=== PATIENT | female | born 1995 | race Caucasian/White ===

== ENCOUNTER 2020-04-04 19:02 | Emergency (ER) | payer SELFPAY ==
--- NOTE | 2020-04-04 21:11 | RAD REPORT ---
EXAM DESCRIPTION: USExtremity Venous Uni Ltd04/04/2020 9:02 pm CLINICAL HISTORY: Right leg pain and swelling. COMPARISON: None. FINDINGS: Right common femoral, superficial femoral, popliteal and right posterior tibial veins are compressible and demonstrate augmentation. Doppler demonstrates good flow. 2 centimeter hypoechoic lymph node right inguinal region with increased vascularity. A more normal ap pearing 2.1 centimeter additional right inguinal lymph node is present IMPRESSION: No evidence of deep venous thrombosis involving the right lower extremity. 2 centimeter hypoechoic right inguinal lymph node likely is inflamed
--- NOTE | 2020-04-04 21:26 | ER ---
Nurse's Notes [facility] Name: Taniya Hudson Age: 24 yrs Sex: Female : 1995 Arrival Date: 04/04/2020 Time: 19:05 Bed 16 Private MD: Diagnosis: Local infection of the skin and subcutaneous tissue, unspecified;Acute lymphadenitis of lower limb Presentation: 04/04 19:20 Chief complaint: Patient states: Seen at [facility] Thursday. Diagnosed with inflamed ll1 lymph node. Covid was negative. Levaquin started Thursday morning. Levaquin made her very dizzy and nausea. Stopped taking it today. Coronavirus screen: Client denies travel out of the [place] in the last 14 days. fatigue, headache, nausea, The client reports previous COVID testing was negative. Ebola Screen: Patient denies travel to an Ebola-affected area in the 21 days before illness onset. Initial Sepsis Screen: Does the patient meet any 2 criteria? No. Patient's initial sepsis screen is negative. Does the patient have a suspected source of infection? Yes: Skin breakdown/wound. Risk Assessment: Do you want to hurt yourself or someone else? Patient reports no desire to harm self or others. Onset of symptoms was March 31, 2020. 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 - Social history:: Smoking status: Patient denies any tobacco usage or history of. Screenin:19 Abuse screen: Denies threats or abuse. Nutritional screening: No deficits noted. jb4 Tuberculosis screening: No symptoms or risk factors identified. Fall Risk None identified. Assessment: 20:19 General: Appears in no apparent distress. comfortable, Behavior is calm, cooperative, jb4 appropriate for age. Pain: Complains of pain in medial aspect of right thigh Pain does not radiate. Pain currently is 5 out of 10 on a pain scale. Quality of pain is described as burning. Neuro: Level of Consciousness is awake, alert, obeys commands, Oriented to person, place, time, situation. Cardiovascular: Patient's skin is warm and dry. Respiratory: Airway is patent Respiratory effort is even, unlabored, Respiratory pattern is regular, symmetrical. GI: No signs and/or symptoms were reported involving the gastrointestinal system. : No signs and/or symptoms were reported regarding the genitourinary system. EENT: No signs and/or symptoms were reported regarding the EENT system. 21:53 Reassessment: Patient appears in no apparent distress at this time. Patient and/or jb4 family updated on plan of care and expected duration. Pain level reassessed. Patient is alert, oriented x 3, equal unlabored respirations, skin warm/dry/pink. Vital Signs: 19:20 BP 147 / 70; Pulse 84; Resp 17; Temp 97.2; Pulse Ox 98% on R/A; Weight 54.43 kg; Height ll1 5 ft. 1 in. (154.94 cm); Pain 6/10; 21:49 BP 105 / 57; Pulse 68; Resp 16; Pulse Ox 96% on R/A; jb4 19:20 Body Mass Index 22.67 (54.43 kg, 154.94 cm) ll1 ED Course: 19:05 Patient arrived in ED. mr 19:24 Triage completed. ll1 19:28 Arm band placed on. ll1 20:19 Patient has correct armband on for positive identification. Bed in low position. Call jb4 light in reach. Side rails up X 1. Pulse ox on. NIBP on. 20:19 No provider procedures requiring assistance completed. Patient did not have IV access jb4 during this emergency room visit. 20:25 Santa Atwood FNP-C is PHCP. kb 20:25 Rios Murphy MD is Attending Physician. kb 20:48 Lester Roberts, ANA is Primary Nurse. jb4 21:02 US Extremity Venous Unilateral Ltd In Process Unspecified. EDMS Administered Medications: 21:46 Drug: Bactrim (160 mg-800 mg (DS) 1 tablet Route: PO; jb4 21:54 Follow up: Response: Medication administered at discharge. jb4 Outcome: 21:25 Discharge ordered by . reggie 21:54 Discharged to home ambulatory. jb4 21:54 Condition: stable 21:54 Discharge instructions given to patient, Instructed on discharge instructions, follow up and referral plans. medication usage, Demonstrated understanding of instructions, follow-up care, medications, Prescriptions given X 1. 21:54 Patient left the ED. jb4 Signatures: Dispatcher [employer] EDMS Santa Atwood, JERRY-C AUTOMOTIVE PARTS MANAGER-Carri Whitney PiersonLester, RN RN jb4 Kati Verdugo RN RN ll1 Corrections: (The following items were deleted from the chart) 53 21:49 General: Appears in no apparent distress. comfortable, Behavior is calm, jb4 cooperative, appropriate for age, jb4 53 21:49 Pain: Complains of pain in medial aspect of right thigh Pain does not radiate. jb4 Pain currently is 5 out of 10 on a pain scale. Quality of pain is described as burning, jb4 21:49 Neuro: Level of Consciousness is awake, alert, obeys commands, Oriented to jb4 person, place, time, situation, jb4 21:49 Cardiovascular: Patient's skin is warm and dry. jb4 jb4 53 21:49 Respiratory: Airway is patent Respiratory effort is even, unlabored, Respiratory jb4 pattern is regular, symmetrical, jb4 53 21:49 GI: No signs and/or symptoms were reported involving the gastrointestinal system. jb4 jb4 21:49 : No signs and/or symptoms were reported regarding the genitourinary system. [id number] : 21:49 EENT: No signs and/or symptoms were reported regarding the EENT system. jb4 jb4
--- NOTE | 2020-04-04 21:26 | EDPHYS ---
Physician Documentation [facility] Name: Taniya Hudson Age: 24 yrs Sex: Female : 1995 Arrival Date: 04/04/2020 Time: 19:05 Bed 16 Private MD: ED Physician Rios Murphy HPI: 04/04 21:36 This 24 yrs old Female presents to ER via Ambulatory with complaints of Leg kb Pain. 21:36 the patient presents with a swollen area of the medial aspect of right thigh. kb Description: erythematous, swollen, warm. The patient has not experienced similar symptoms in the past. The patient has not recently seen a physician. 21:37 Onset: The symptoms/episode began/occurred 4 day(s) ago. Possible cause(s): unknown. kb Associated signs and symptoms: Pertinent positives: erythema, swelling. Modifying factors: the symptoms are alleviated by nothing, the symptoms are aggravated by touching. Severity of symptoms: At their worst the symptoms were moderate, in the emergency department the symptoms are unchanged. 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 - Social history:: Smoking status: Patient denies any tobacco usage or history of. ROS: 21:35 Constitutional: Negative for fever, chills, and weight loss, Cardiovascular: Negative kb for chest pain, palpitations, and edema, Respiratory: Negative for shortness of breath, cough, wheezing, and pleuritic chest pain, Abdomen/GI: Negative for abdominal pain, nausea, vomiting, diarrhea, and constipation, MS/Extremity: Negative for injury and deformity, Neuro: Negative for headache, weakness, numbness, tingling, and seizure. 21:35 Skin: Positive for erythema, swelling, of the medial aspect of right thigh. Exam: 21:35 Constitutional: This is a well developed, well nourished patient who is awake, alert, kb and in no acute distress. Head/Face: Normocephalic, atraumatic. Chest/axilla: Normal chest wall appearance and motion. Nontender with no deformity. No lesions are appreciated. Cardiovascular: Regular rate and rhythm with a normal S1 and S2. No gallops, murmurs, or rubs. Normal PMI, no JVD. No pulse deficits. Respiratory: Lungs have equal breath sounds bilaterally, clear to auscultation and percussion. No rales, rhonchi or wheezes noted. No increased work of breathing, no retractions or nasal flaring. Abdomen/GI: Soft, non-tender, with normal bowel sounds. No distension or tympany. No guarding or rebound. No evidence of tenderness throughout. MS/ Extremity: Pulses equal, no cyanosis. Neurovascular intact. Full, normal range of motion. Neuro: Awake and alert, GCS 15, oriented to person, place, time, and situation. Cranial nerves II-XII grossly intact. Motor strength 5/5 in all extremities. Sensory grossly intact. Cerebellar exam normal. Normal gait. 21:35 Skin: cellulitis, that is mild, on the medial aspect of right thigh. Vital Signs: 19:20 BP 147 / 70; Pulse 84; Resp 17; Temp 97.2; Pulse Ox 98% on R/A; Weight 54.43 kg; Height ll1 5 ft. 1 in. (154.94 cm); Pain 6/10; 21:49 BP 105 / 57; Pulse 68; Resp 16; Pulse Ox 96% on R/A; jb4 19:20 Body Mass Index 22.67 (54.43 kg, 154.94 cm) ll1 MDM: 20:25 Patient medically screened. kb 21:30 Data reviewed: vital signs, nurses notes. Data interpreted: Pulse oximetry: on room air kb is 98 %. Interpretation: normal. Counseling: I had a detailed discussion with the patient and/or guardian regarding: the historical points, exam findings, and any diagnostic results supporting the discharge/admit diagnosis, radiology results, the need for outpatient follow up, a family practitioner, to return to the emergency department if symptoms worsen or persist or if there are any questions or concerns that arise at home. 04/04 20:34 Order name: US Extremity Venous Unilateral Ltd; Complete Time: 21:20 kb Administered Medications: 21:46 Drug: Bactrim (160 mg-800 mg (DS) 1 tablet Route: PO; jb4 21:54 Follow up: Response: Medication administered at discharge. jb4 Disposition: 04/05 05:56 Co-signature as Attending Physician, Rios Murphy MD I agree with the assessment and blane plan of care. Disposition: 04/04/20 21:25 Discharged to Home. Impression: Local infection of the skin and subcutaneous tissue, unspecified, Acute lymphadenitis of lower limb. - Condition is Stable. - Discharge Instructions: Skin Abscess, [id number], Lymphadenopathy. - Prescriptions for Bactrim DS 800- 160 mg Oral Tablet - take 1 tablet by ORAL route every 12 hours for 10 days; 20 tablet. - Medication Reconciliation Form, Thank You Letter, Antibiotic Education, Prescription Opioid Use form. - Follow up: Emergency Department; When: As needed; Reason: Worsening of condition. Follow up: Private Physician; When: 2 - 3 days; Reason: Recheck today's complaints, Continuance of care, Re-evaluation by your physician. Signatures: Dispatcher [employer] EDWI Santa Atwood, LINE TENDER FLAKEBOARD-C LINE TENDER FLAKEBOARD-Rios Cunningham MD MD cha Bryson, James RN RN jb4 Kati Verdugo RN RN ll1 Corrections: (The following items were deleted from the chart) 04/04 21:54 21:25 04/04/2020 21:25 Discharged to Home. Impression: Local infection of the skin and jb4 subcutaneous tissue, unspecified; Acute lymphadenitis of lower limb. Condition is Stable. Forms are Medication Reconciliation Form, Thank You Letter, Antibiotic Education, Prescription Opioid Use. Follow up: Emergency Department; When: As needed; Reason: Worsening of condition. Follow up: Private Physician; When: 2 - 3 days; Reason: Recheck today's complaints, Continuance of care, Re-evaluation by your physician. kb
[2020-04-04] MEDS ORDERED: SMZ./TMP. 800/160 MG TABLET ONE (22:00)
[2020-04-04 22:10] VITALS: TEMP 97.2
[2020-04-04 22:12] VITALS: BP 105/57; O2SAT 96
== END 2020-04-04 21:54 | disposition home or self-care (01) ==
LOC: ER 19:02
DX: L03.115 Cellulitis of right lower limb (principal); L04.3 Acute lymphadenitis of lower limb
CPT/HCPCS: 93971; 99284

== ENCOUNTER 2020-04-08 19:07 | Emergency (ER) | payer SELFPAY ==
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
--- OUTSIDE RECORDS SUMMARY | 2020-04-08 19:10 | XMS REPORT | Continuity of Care Document ---
:1995 Author Organization [facility] t Address [address] [place] [address] Care Team Providers Name Role Phone Thomas Tubbs Attending Clinician Darcie PEREZ, T Attending Clinician Unavailable [place] López Attending Clinician Dada Kessler MD Attending Clinician Margarito ACOSTA, M Attending Clinician Unavailable Problems Condition Condition Condition Status Onset Resolution Last Treating Co mments Source Name Details Category Date Date Treatment Clinician Date Posttrauma Posttrauma Problem Active 2020-0 M [place] tic stress tic Stress 8-26 da disorder Disorder 00:00: [facility] Allergies, Adverse Reactions, Alerts This patient has no known allergies or adverse reactions. Social History Smoking Status Start Date Stop Date Source Never Smoker [place] [facility] Medications Ordered Filled Start Stop Current Ordering Indication Dosage Frequency Signature Comments Components Source Medication Medication Date Date Medication? Clinician (SIG) Name Name Asprin Ec [facility] No 1 Q1D Asp[facility] [place] Low Dose 81 Low Dose 81 Low Dose da mg mg 81 mg [facility] tablet,geeta tablet,geeta tablet,del al yed release yed release ayed H ealth Take 1 Take 1 release Outreac tablet tablet Take 1 h every day every day tablet Pro gram by oral by oral every day route. route. by oral route. enalapril enalapril No enalapril [place] maleate 2.5 maleate 2.5 maleate da mg tablet mg tablet 2.5 mg Epi scop TAKE 1 TAKE 1 tablet al TABLET BY TABLET BY TAKE 1 Hea lth MOUTH IN MOUTH IN TABLET BY Ou treac THE MORNING THE MORNING MOUTH IN h AND 2 IN AND 2 IN THE Program THE EVENING THE EVENING MORNING AND 2 IN THE EVENING iron iron No iron [place] [facility] medroxyprog medroxyprog No medroxypro [place] esterone esterone gesterone da 150 mg/mL 150 mg/mL 150 mg/mL [facility] intramuscul intramuscul intramuscu al ar syringe ar syringe lar Hea lth INJECT 1 ML INJECT 1 ML syringe Outreac EVERY 3 EVERY 3 INJECT 1 h MONTHS BY MONTHS BY ML EVERY 3 Program INTRAMUSCUL INTRAMUSCUL MONTHS BY AR ROUTE. AR ROUTE. INTRAMUSCU LAR ROUTE. naproxen naproxen No naproxen [place] 500 mg 500 mg 500 mg da tablet TAKE tablet TAKE tablet [facility] 1 TABLET BY 1 TABLET BY TAKE 1 al MOUTH TWICE MOUTH TWICE TABLET BY Health DAILY FOR 5 DAILY FOR 5 MOUTH Outreac DAYS THEN DAYS THEN TWICE h TWICE DAILY TWICE DAILY DAILY FOR Program NEEDED NEEDED 5 DAYS FOR PAIN FOR PAIN THEN TWICE DAILY NEEDED FOR PAIN prazosin 1 prazosin 1 No prazosin 1 [place] mg capsule mg capsule mg capsule da TAKE 1 TAKE 1 TAKE 1 [facility] CAPSULE BY CAPSULE BY CAPSULE BY al MOUTH ONCE MOUTH ONCE MOUTH ONCE Health DAILY AT DAILY AT DAILY AT Out reac BEDTIME FOR BEDTIME FOR BEDTIME h 30 DAYS 30 DAYS FOR 30 Program DAYS sertraline sertraline No sertraline [place] 50 mg 50 mg 50 mg da tablet TAKE tablet TAKE tablet [facility] 1/2 1/2 TAKE 1/2 al (ONE-HALF) (ONE-HALF) (ONE-HALF) Health TABLET BY TABLET BY TABLET BY Outreac MOUTH ONCE MOUTH ONCE MOUTH ONCE h DAILY FOR 1 DAILY FOR 1 DAILY FOR Program WEEK THEN WEEK THEN 1 WEEK TAKE 1 TAKE 1 THEN TAKE TABLET ONCE TABLET ONCE 1 TABLET DAILY WITH DAILY WITH ONCE DAILY MEALS FOR MEALS FOR WITH MEALS 30 DAYS 30 DAYS FOR 30 DAYS Immunizations Ordered Immunization Filled Immunization Date Status Commen ts Source Name Name influenza, influenza, 2019-11-30 Completed [place] injectable, injectable, 11:22:00 [facility] quadrivalent, quadrivalent, Outreach Program preservative free preservative free Tdap Tdap 2019-11-30 Completed [place] 11:21:00 [facility] am Vital Signs Vital Name Observation Time Observation Value Comments Source BP Diastolic 2020-02-01 00:00:00 62 mm[facility]Hg[facility] Height 2020-02-01 00:00:00 61 [in_i] [place] [facility] BMI (Body Mass 2020-02-01 00:00:00 22.9 kg/m2 [place]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 [facility] Index) Health Outreach Program BP Systolic 2020-02-01 00:00:00 106 mm[Hg] [facility] Body Weight 2020-02-01 00:00:00 1942 [oz_av] [place] [facility] BP Diastolic 2020-01-04 00:00:00 64 mm[Hg] [place] [facility] Height 2020-01-04 00:00:00 61 [in_i] [place] [facility] BMI (Body Mass 2020-01-04 00:00:00 22.5 kg/m2 [place]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 [facility] Index) [facility] Outreach Program BP Systolic 2020-01-04 00:00:00 112 mm[Hg] [place] [facility] Body Weight 2020-01-04 00:00:00 1905 [oz_av] [place] [facility] BP Diastolic 2019-12-07 00:00:00 61 mm[Hg] [place] [facility] Height 2019-12-07 00:00:00 61 [in_i] [place] [facility] BMI (Body Mass 2019-12-07 00:00:00 23.3 kg/m2 [place]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 [facility]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) [facility] BP Systolic 2019-12-07 00:00:00 122 mm[Hg] [place] [facility] Body Weight 2019-12-07 00:00:00 1974 [oz_av] [place] [facility] BP Diastolic 2019-11-30 00:00:00 68 mm[Hg] [place] [facility] Height 2019-11-30 00:00:00 61 [in_i] [place] [facility] BMI (Body Mass 2019-11-30 00:00:00 22.7 kg/m2 [place]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 Plan of Care Planned Activity Planned Date Details Comments Source Instructions [facility] Encounters Start End Encounter Admission Attending Care Care Encounter Source Date/Time Date/Time Type Type Clinicians Facility Department ID 2020-04-04 2020-04-04 Emergency [facility] [id number] 16:55:00 18:45:00 Petra Reed [id number] [place] [id number] [place] [address] [id number] 2020-04-02 2020-04-02 Letter OG Sprague [id number] 00:00:00 00:00:00 (Out) Julieth ELY [id number] [facility] [id number] 2020-03-31 2020-04-01 Emergency Rodrigo Solis [facility] [id number] 23:53:00 05:34:00 [place] Reed [id number] [place] [id number] [place] [address] [id number] 2020-03-07 2020-03-07 Long [place] - [id number] [place] 00:00:00 00:00:00 Karen Day [employer] LEADER: [id number] [facility] Epi scop [address] [facility] [address], [facility] [place] Program [address] , Ph. 2020-02-29 2020-02-29 Long [place] - [id number] M [place] 00:00:00 00:00:00 Karen Day [employer] LEADER: [id number] [facility] Epi scop [address] [facility], [facility] [place] Program [address] , Ph. 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 2020-02-05 2020-02-05 True Kessler [facility] [id number] 00:00:00 00:00:00 [facility] [id number] [facility] [id number] [place] [id number] Medical [facility] Office Building 2020-02-01 2020-02-01 Ely Mayers [place] - [id number] M at[place] 00:00:00 00:00:00 JEFE Pacheco: Karen cat [id number] [place] [facility] op [address] [facility] [address], [place] Program [address] , Ph. 2020-01-31 2020-01-31 True Kessler [facility] [id number] 00:00:00 00:00:00 [facility] [id number] [place] 4.2.7.2.686 [place] [id number] Medical [address] Office Building 2020-01-19 2020-01-19 True Kessler [facility] [id number] 00:00:00 00:00:00 [facility] [id number] [place] 4.2.7.2.686 [place] [id number] Medical [address] Office Building 2020-01-16 2020-01-16 Cecilia Hein [facility] [id number] 00:00:00 00:00:00 Management M Health [id number] [place] [id number] [place] [id number] Medical [address] Office Building 2020-01-13 2020-01-13 Cecilia Hein [facility] [id number] 00:00:00 00:00:00 Management M Health [id number] [place] [id number] [place] [id number] Medical [address] Building 2020-01-11 2020-01-11 Long [place] - [id number] M at[place]or 00:00:00 00:00:00 Karen Day [employer] LEADER: [id number] [facility] Epi sc[facility] [address] [facility], [facility] [address], [place] Program [address] , Ph. 2020-01-10 2020-01-10 Juan Kessler [facility] [id number] 00:00:00 00:00:00 Management [facility] [id number] [place] [id number] [place] [id number] Medical 149 Office Building 2020-01-04 2020-01-04 Ely [place] - [id number] at[place]or 00:00:00 00:00:00 JEFE Pcaheco: Karen cat [phone] [place] [facility] [address] [facility] [address], [facility] [place] Program [address] , Ph. 2019-12-28 2019-12-28 Long [facility] [place] - [id number] M atagor 00:00:00 00:00:00 Karen Day [employer] LEADER: [id number] [facility] Epi sc[facility] [address] [facility] [address], [facility] [place] Program [address] , Ph. 2019-12-23 2019-12-23 Stefan Mayers [facility] [place] - [id number] [place] 00:00:00 00:00:00 MD Robert: Karen cat [phone] [place] [facility] [address] [facility] [address] , [facility] [place] Program [address] , Ph. 2019-12-21 2019-12-21 Long [facility] [place] - [id number] M atagor 00:00:00 00:00:00 Karen Day [employer]ING [employer] LEADER: [id number] [facility] Epi sc[facility] [address] [facility] [address], [facility] [place] Program [phone] , Ph. 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 2019-12-07 2019-12-07 Long [facility] [place] - [id number] M atagor 00:00:00 00:00:00 Karen Day [employer]ING [employer] LEADER: [id number] [facility] Epi scop [address] [facility] Medical [facility] [address], [facility] [place] Program [address] , Ph. 2019-11-30 2019-11-30 Ely [place] - [id number] M at[place]or 00:00:00 00:00:00 JEFE Pacheco: Karen cat [id number] [place] [facility] [address] [facility] [address], [facility] [place] Program [address] , Ph. 2019-11-23 2019-11-23 Long [place] - [id number] M at[place]or 00:00:00 00:00:00 Karen Day [employer] LEADER: [id number] [facility] Epi scop [address] [facility] [address], [facility] [place] Program [address] , Ph. 2019-11-16 2019-11-16 Long [place] - [id number] M [place] 00:00:00 00:00:00 Karen Day [employer] LEADER: [id number] [facility] Epi sc[facility] [address] [facility] [address], [facility] [place] Program [address] , Ph. 2019-11-02 2019-11-02 Long [place] - [id number] M at[place]or 00:00:00 00:00:00 Karen Day [employer]ING [employer] LEADER: [id number] [facility] Epi scop [address] [facility] [address], [facility] [place] Program [address] , Ph. 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 Results Test Description Test Time Test Comments Results Result Comments Source Urinalysis complete W Reflex Culture panel - Urine 00:00:00 Test Item Value Reference Range Interpretation Comme nts color (test code = color) yellow yellow-straw appearance (test code = appearance) turbid clear A specific gravity (test code = specific gravity) 1.026 1.005- 1.035 leukocyte esterase (test code = leukocyte esterase) negative ne gative nitrite (test code = nitrite) negative negative pH (test code = pH) 5.0 5.0-9.0 protein (test code = protein) negative negative glucose (test code = glucose) negative negative ketones (test code = ketones) negative negative urobilinogen (test code = urobilinogen) <2.0 <=2.0 bilirubin (test code = bilirubin) negative negative occult blood (test code = occult blood) negative negative white blood cells (test code = white blood cells) 0-5 0-5 red blood cells (test code = red blood cells) 0-2 0-5 epithelial cells (test code = epithelial cells) 5-10 0-10 [facility] panel - Serum or Plasma 2019-12-01 00:00:00 Test Item Value Reference Range Interpretation Comments cholesterol (test code = 176 mg/dL <200 cholesterol) triglycerides (test code = 53 mg/dL <150 triglycerides) HDL cholesterol (test code = HDL 62 mg/dL >39 cholesterol) Cholesterol in LDL [Mass/volume] 100 mg/dL <100 H in Serum or Plasma (test code = 2089-1) risk ratio LDL/HDL (test code = 1.61 ratio <3.22 risk ratio LDL/HDL) [facility] Differential panel - Blood 2019-12-01 00:00:00 Test Item Value Reference Range Interpretation Comments WBC (test code = WBC) 4.6 K/uL 3.5-10.0 RBC (test code = RBC) 4.74 M/uL 3.80-5.20 hemoglobin (test code = hemoglobin) 14.1 g/dL 12.0-16.0 hematocrit (test code = hematocrit) 42.5 % 35.0-46.0 MCV (test code = MCV) 89.7 fL 80.0-99.0 MCH (test code = MCH) 29.7 pg 25.0-34.0 MCHC (test code = MCHC) 33.2 g/dL 31.0-36.0 RDW (test code = RDW) 12.2 % 11.5-15.0 neutrophils (test code = 82.0 % 40.0-75.0 H neutrophils) lymphocytes (test code = 10.3 % 20.0-45.0 L lymphocytes) monocytes (test code = monocytes) 5.7 % 4.0-12.0 eosinophils (test code = 1.3 % 0.0-7.0 eosinophils) basophils (test code = basophils) 0.7 % 0.0-2.0 platelet count (test code = 156 K/uL 130-400 platelet count) [facility] 2000 panel - Serum or [id number] 00:00:00 Test Item Value Reference Range Interpretation Comments glucose (test code = glucose) 95 mg/dL 70-99 BUN (test code = BUN) 19 mg/dL 6-20 creatinine (test code = 0.67 mg/dL 0.60-1.30 creatinine) eGFR amer. (test code 145 mL/min/1.73 >60 = eGFR amer.) eGFR non- amer. (test 125 mL/min/1.73 >60 code = eGFR non- amer.) calc BUN/creat (test code = 28 ratio 6-28 calc BUN/creat) sodium (test code = sodium) 140 mEq/L 133-146 potassium (test code = 4.1 mEq/L 3.5-5.4 potassium) chloride (test code = 102 mEq/L 95-107 chloride) carbon dioxide (test code = 25 mEq/L 19-31 carbon dioxide) calcium (test code = calcium) 9.7 mg/dL 8.5-10.5 protein, total (test code = 7.3 g/dL 6.1-8.3 protein, total) albumin (test code = albumin) 4.8 g/dL 3.5-5.2 calc globulin (test code = 2.5 g/dL 1.9-3.7 calc globulin) calc A/G ratio (test code = 1.9 ratio 1.0-2.6 calc A/G ratio) bilirubin, total (test code = 0.6 mg/dL <=1.2 bilirubin, total) alkaline phosphatase (test 74 U/L 38-117 code = alkaline phosphatase) AST (test code = AST) 24 U/L 9-40 ALT (test code = ALT) 26 U/L 5-40 [facility] [Units/volume] in Serum or [id number] 00:00:00 Test Item Value Reference Range Interpretation Comments TSH, third generation (test code 1.810 uIU/mL 0.400-4.100 = TSH, third generation) [facility] Ab [Presence] in Serum by RPR 2019-12-01 00:00:00 Test Item Value Reference Range Interpretation Comments RPR result (test code = RPR non-reactive non-reactive result) RPR titer (test code = RPR not indic. not indic. titer) [facility] and aPTT panel - Platelet poor plasma by Coagulation [id number] 00:00:00 Test Item Value Reference Range Interpretation Comments prothrombin time (PT) (test code 13.9 seconds 12.5-14.7 = prothrombin time (PT)) INR (test code = INR) 1.0 see below PTT (test code = PTT) 30.1 seconds 25.2-40.0 [facility]+2 Ab [Presence] in Serum or Plasma by [id number] 00:00:00 Test Item Value Reference Range Interpretation Comments HIV 1/2 4TH gen, rflx conf (test non-reactive non-reactive code = HIV 1/2 4TH gen, rflx conf) [facility] 2000 panel - Serum 2019-12-01 00:00:00 Test Item Value Reference Range Interpretation Comments hepatitis A IgM (test code = non-reactive non-reactive hepatitis A IgM) hepatitis B core IgM (test code non-reactive non-reactive = hepatitis B core IgM) hepatitis B surf Ag (test code = non-reactive non-reactive hepatitis B surf Ag) hepatitis C antibody (test code non-reactive non-reactive = hepatitis C antibody) interpretation hepatitis A: (note) (test code = interpretation hepatitis A:) interpretation hepatitis B: (note) (test code = interpretation hepatitis B:) interpretation hepatitis C: (note) (test code = interpretation hepatitis C:) [facility]lamydia trachomatis+Neisseria gonorrhoeae DNA [Presence] in Urine by [facility] with probe [id number] 00:00:00 Test Item Value Reference Range Interpretation Comments gonorrhea, tma (test code = negative negative gonorrhea, tma) chlamydia, tma (test code = negative negative chlamydia, tma) [facility]inteUrinalysis complete W Reflex Culture panel - [id number] 00:00:00 Test Item Value Reference Range Interpretation Comments color (test code = color) yellow yellow-straw appearance (test code = appearance) turbid clear A specific gravity (test code = 1.026 1.005-1.035 specific gravity) leukocyte esterase (test code = negative negative leukocyte esterase) nitrite (test code = nitrite) negative negative pH (test code = pH) 5.0 5.0-9.0 protein (test code = protein) negative negative glucose (test code = glucose) negative negative ketones (test code = ketones) negative negative urobilinogen (test code = <2.0 <=2.0 urobilinogen) bilirubin (test code = bilirubin) negative negative occult blood (test code = occult negative negative blood) white blood cells (test code = white 0-5 0-5 blood cells) red blood cells (test code = red 0-2 0-5 blood cells) epithelial cells (test code = 5-10 0-10 epithelial cells) [facility] 1995 panel - Serum or Plasma 2019-12-01 00:00:00 Test Item Value Reference Range Interpretation Comments cholesterol (test code = 176 mg/dL <200 cholesterol) triglycerides (test code = 53 mg/dL <150 triglycerides) HDL cholesterol (test code = HDL 62 mg/dL >39 cholesterol) Cholesterol in LDL [Mass/volume] 100 mg/dL <100 H in Serum or Plasma (test code = 2089-1) risk ratio LDL/HDL (test code = 1.61 ratio <3.22 risk ratio LDL/HDL) [place] [facility] W Auto Differential panel - Blood 2019-12-01 00:00:00 Test Item Value Reference Range Interpretation Comments WBC (test code = WBC) 4.6 K/uL 3.5-10.0 RBC (test code = RBC) 4.74 M/uL 3.80-5.20 hemoglobin (test code = hemoglobin) 14.1 g/dL 12.0-16.0 hematocrit (test code = hematocrit) 42.5 % 35.0-46.0 MCV (test code = MCV) 89.7 fL 80.0-99.0 MCH (test code = MCH) 29.7 pg 25.0-34.0 MCHC (test code = MCHC) 33.2 g/dL 31.0-36.0 RDW (test code = RDW) 12.2 % 11.5-15.0 neutrophils (test code = 82.0 % 40.0-75.0 H neutrophils) lymphocytes (test code = 10.3 % 20.0-45.0 L lymphocytes) monocytes (test code = monocytes) 5.7 % 4.0-12.0 eosinophils (test code = 1.3 % 0.0-7.0 eosinophils) basophils (test code = basophils) 0.7 % 0.0-2.0 platelet count (test code = 156 K/uL 130-400 platelet count) [facility] 2000 panel - Serum or [id number] 00:00:00 Test Item Value Reference Range Interpretation Comments glucose (test code = glucose) 95 mg/dL 70-99 BUN (test code = BUN) 19 mg/dL 6-20 creatinine (test code = 0.67 mg/dL 0.60-1.30 creatinine) eGFR amer. (test code 145 mL/min/1.73 >60 = eGFR amer.) eGFR non- amer. (test 125 mL/min/1.73 >60 code = eGFR non- amer.) calc BUN/creat (test code = 28 ratio 6-28 calc BUN/creat) sodium (test code = sodium) 140 mEq/L 133-146 potassium (test code = 4.1 mEq/L 3.5-5.4 potassium) chloride (test code = 102 mEq/L 95-107 chloride) carbon dioxide (test code = 25 mEq/L 19-31 carbon dioxide) calcium (test code = calcium) 9.7 mg/dL 8.5-10.5 protein, total (test code = 7.3 g/dL 6.1-8.3 protein, total) albumin (test code = albumin) 4.8 g/dL 3.5-5.2 calc globulin (test code = 2.5 g/dL 1.9-3.7 calc globulin) calc A/G ratio (test code = 1.9 ratio 1.0-2.6 calc A/G ratio) bilirubin, total (test code = 0.6 mg/dL <=1.2 bilirubin, total) alkaline phosphatase (test 74 U/L 38-117 code = alkaline phosphatase) AST (test code = AST) 24 U/L 9-40 ALT (test code = ALT) 26 U/L 5-40 [facility]inte[facility]yrotropin [Units/volume] in Serum or [id number] 00:00:00 Test Item Value Reference Range Interpretation Comments TSH, third generation (test code 1.810 uIU/mL 0.400-4.100 = TSH, third generation) [facility] Ab [Presence] in Serum by RPR 2019-12-01 00:00:00 Test Item Value Reference Range Interpretation Comments RPR result (test code = RPR non-reactive non-reactive result) RPR titer (test code = RPR not indic. not indic. titer) [facility]PT and aPTT panel - Platelet poor plasma by Coagulation [id number] 00:00:00 Test Item Value Reference Range Interpretation Comments prothrombin time (PT) (test code 13.9 seconds 12.5-14.7 = prothrombin time (PT)) INR (test code = INR) 1.0 see below PTT (test code = PTT) 30.1 seconds 25.2-40.0 [facility]inteHIV 1+2 Ab [Presence] in Serum or Plasma by [id number] 00:00:00 Test Item Value Reference Range Interpretation Comments HIV 1/2 4TH gen, rflx conf (test non-reactive non-reactive code = HIV 1/2 4TH gen, rflx conf) [facility] 1999 panel - Serum 2019-12-01 00:00:00 Test Item Value Reference Range Interpretation Comments hepatitis A IgM (test code = non-reactive non-reactive hepatitis A IgM) hepatitis B core IgM (test code non-reactive non-reactive = hepatitis B core IgM) hepatitis B surf Ag (test code = non-reactive non-reactive hepatitis B surf Ag) hepatitis C antibody (test code non-reactive non-reactive = hepatitis C antibody) interpretation hepatitis A: (note) (test code = interpretation hepatitis A:) interpretation hepatitis B: (note) (test code = interpretation hepatitis B:) interpretation hepatitis C: (note) (test code = interpretation hepatitis C:) [facility]inteChlamydia trachomatis+Neisseria gonorrhoeae DNA [Presence] in Urine by ANSLEY with probe [id number] 00:00:00 Test Item Value Reference Range Interpretation Comments gonorrhea, tma (test code = negative negative gonorrhea, tma) chlamydia, tma (test code = negative negative chlamydia, tma) [facility] PointeUrinalysis complete W Reflex Culture panel - [id number] 00:00:00 Test Item Value Reference Range Interpretation Comments color (test code = color) yellow yellow-straw appearance (test code = appearance) turbid clear A specific gravity (test code = 1.026 1.005-1.035 specific gravity) leukocyte esterase (test code = negative negative leukocyte esterase) nitrite (test code = nitrite) negative negative pH (test code = pH) 5.0 5.0-9.0 protein (test code = protein) negative negative glucose (test code = glucose) negative negative ketones (test code = ketones) negative negative urobilinogen (test code = <2.0 <=2.0 urobilinogen) bilirubin (test code = bilirubin) negative negative occult blood (test code = occult negative negative blood) white blood cells (test code = white 0-5 0-5 blood cells) red blood cells (test code = red 0-2 0-5 blood cells) epithelial cells (test code = 5-10 0-10 epithelial cells) [facility] - Serum or Plasma 2019-12-01 00:00:00 Test Item Value Reference Range Interpretation Comments cholesterol (test code = 176 mg/dL <200 cholesterol) triglycerides (test code = 53 mg/dL <150 triglycerides) HDL cholesterol (test code = HDL 62 mg/dL >39 cholesterol) Cholesterol in LDL [Mass/volume] 100 mg/dL <100 H in Serum or Plasma (test code = 2089-1) risk ratio LDL/HDL (test code = 1.61 ratio <3.22 risk ratio LDL/HDL) [facility] Differential panel - Blood 2019-12-01 00:00:00 Test Item Value Reference Range Interpretation Comments WBC (test code = WBC) 4.6 K/uL 3.5-10.0 RBC (test code = RBC) 4.74 M/uL 3.80-5.20 hemoglobin (test code = hemoglobin) 14.1 g/dL 12.0-16.0 hematocrit (test code = hematocrit) 42.5 % 35.0-46.0 MCV (test code = MCV) 89.7 fL 80.0-99.0 MCH (test code = MCH) 29.7 pg 25.0-34.0 MCHC (test code = MCHC) 33.2 g/dL 31.0-36.0 RDW (test code = RDW) 12.2 % 11.5-15.0 neutrophils (test code = 82.0 % 40.0-75.0 H neutrophils) lymphocytes (test code = 10.3 % 20.0-45.0 L lymphocytes) monocytes (test code = monocytes) 5.7 % 4.0-12.0 eosinophils (test code = 1.3 % 0.0-7.0 eosinophils) basophils (test code = basophils) 0.7 % 0.0-2.0 platelet count (test code = 156 K/uL 130-400 platelet count) [facility] 2000 panel - Serum or [id number] 00:00:00 Test Item Value Reference Range Interpretation Comments glucose (test code = glucose) 95 mg/dL 70-99 BUN (test code = BUN) 19 mg/dL 6-20 creatinine (test code = 0.67 mg/dL 0.60-1.30 creatinine) eGFR amer. (test code 145 mL/min/1.73 >60 = eGFR amer.) eGFR non- amer. (test 125 mL/min/1.73 >60 code = eGFR non- amer.) calc BUN/creat (test code = 28 ratio 6-28 calc BUN/creat) sodium (test code = sodium) 140 mEq/L 133-146 potassium (test code = 4.1 mEq/L 3.5-5.4 potassium) chloride (test code = 102 mEq/L 95-107 chloride) carbon dioxide (test code = 25 mEq/L 19-31 carbon dioxide) calcium (test code = calcium) 9.7 mg/dL 8.5-10.5 protein, total (test code = 7.3 g/dL 6.1-8.3 protein, total) albumin (test code = albumin) 4.8 g/dL 3.5-5.2 calc globulin (test code = 2.5 g/dL 1.9-3.7 calc globulin) calc A/G ratio (test code = 1.9 ratio 1.0-2.6 calc A/G ratio) bilirubin, total (test code = 0.6 mg/dL <=1.2 bilirubin, total) alkaline phosphatase (test 74 U/L 38-117 code = alkaline phosphatase) AST (test code = AST) 24 U/L 9-40 ALT (test code = ALT) 26 U/L 5-40 [facility]yrot[facility]in [Units/volume] in Serum or [id number] 00:00:00 Test Item Value Reference Range Interpretation Comments TSH, third generation (test code 1.810 uIU/mL 0.400-4.100 = TSH, third generation) [facility] Ab [Presence] in Serum by RPR 2019-12-01 00:00:00 Test Item Value Reference Range Interpretation Comments RPR result (test code = RPR non-reactive non-reactive result) RPR titer (test code = RPR not indic. not indic. titer) [facility] aPTT panel - Platelet poor plasma by Coagulation [id number] 00:00:00 Test Item Value Reference Range Interpretation Comments prothrombin time (PT) (test code 13.9 seconds 12.5-14.7 = prothrombin time (PT)) INR (test code = INR) 1.0 see below PTT (test code = PTT) 30.1 seconds 25.2-40.0 [facility]HIV [facility]+2 Ab [Presence] in Serum or Plasma by [id number] 00:00:00 Test Item Value Reference Range Interpretation Comments HIV 1/2 4TH gen, rflx conf (test non-reactive non-reactive code = HIV 1/2 4TH gen, rflx conf) [facility] 2000 panel - Serum 2019-12-01 00:00:00 Test Item Value Reference Range Interpretation Comments hepatitis A IgM (test code = non-reactive non-reactive hepatitis A IgM) hepatitis B core IgM (test code non-reactive non-reactive = hepatitis B core IgM) hepatitis B surf Ag (test code = non-reactive non-reactive hepatitis B surf Ag) hepatitis C antibody (test code non-reactive non-reactive = hepatitis C antibody) interpretation hepatitis A: (note) (test code = interpretation hepatitis A:) interpretation hepatitis B: (note) (test code = interpretation hepatitis B:) interpretation hepatitis C: (note) (test code = interpretation hepatitis C:) [facility]lamydia trachomatis+Neisseria gonorrhoeae DNA [Presence] in Urine by ANSLEY with probe [id number] 00:00:00 Test Item Value Reference Range Interpretation Comments gonorrhea, tma (test code = negative negative gonorrhea, tma) chlamydia, tma (test code = negative negative chlamydia, tma) [facility]inteUrinalysis complete W Reflex Culture panel - [id number] 00:00:00 Test Item Value Reference Range Interpretation Comments color (test code = color) yellow yellow-straw appearance (test code = appearance) turbid clear A specific gravity (test code = 1.026 1.005-1.035 specific gravity) leukocyte esterase (test code = negative negative leukocyte esterase) nitrite (test code = nitrite) negative negative pH (test code = pH) 5.0 5.0-9.0 protein (test code = protein) negative negative glucose (test code = glucose) negative negative ketones (test code = ketones) negative negative urobilinogen (test code = <2.0 <=2.0 urobilinogen) bilirubin (test code = bilirubin) negative negative occult blood (test code = occult negative negative blood) white blood cells (test code = white 0-5 0-5 blood cells) red blood cells (test code = red 0-2 0-5 blood cells) epithelial cells (test code = 5-10 0-10 epithelial cells) [facility] panel - Serum or Plasma 2019-12-01 00:00:00 Test Item Value Reference Range Interpretation Comments cholesterol (test code = 176 mg/dL <200 cholesterol) triglycerides (test code = 53 mg/dL <150 triglycerides) HDL cholesterol (test code = HDL 62 mg/dL >39 cholesterol) Cholesterol in LDL [Mass/volume] 100 mg/dL <100 H in Serum or Plasma (test code = 2089-1) risk ratio LDL/HDL (test code = 1.61 ratio <3.22 risk ratio LDL/HDL) [facility] Auto Differential panel - Blood 2019-12-01 00:00:00 Test Item Value Reference Range Interpretation Comments WBC (test code = WBC) 4.6 K/uL 3.5-10.0 RBC (test code = RBC) 4.74 M/uL 3.80-5.20 hemoglobin (test code = hemoglobin) 14.1 g/dL 12.0-16.0 hematocrit (test code = hematocrit) 42.5 % 35.0-46.0 MCV (test code = MCV) 89.7 fL 80.0-99.0 MCH (test code = MCH) 29.7 pg 25.0-34.0 MCHC (test code = MCHC) 33.2 g/dL 31.0-36.0 RDW (test code = RDW) 12.2 % 11.5-15.0 neutrophils (test code = 82.0 % 40.0-75.0 H neutrophils) lymphocytes (test code = 10.3 % 20.0-45.0 L lymphocytes) monocytes (test code = monocytes) 5.7 % 4.0-12.0 eosinophils (test code = 1.3 % 0.0-7.0 eosinophils) basophils (test code = basophils) 0.7 % 0.0-2.0 platelet count (test code = 156 K/uL 130-400 platelet count) [facility] 2000 panel - Serum or [id number] 00:00:00 Test Item Value Reference Range Interpretation Comments glucose (test code = glucose) 95 mg/dL 70-99 BUN (test code = BUN) 19 mg/dL 6-20 creatinine (test code = 0.67 mg/dL 0.60-1.30 creatinine) eGFR amer. (test code 145 mL/min/1.73 >60 = eGFR amer.) eGFR non- amer. (test 125 mL/min/1.73 >60 code = eGFR non- amer.) calc BUN/creat (test code = 28 ratio 6-28 calc BUN/creat) sodium (test code = sodium) 140 mEq/L 133-146 potassium (test code = 4.1 mEq/L 3.5-5.4 potassium) chloride (test code = 102 mEq/L 95-107 chloride) carbon dioxide (test code = 25 mEq/L 19-31 carbon dioxide) calcium (test code = calcium) 9.7 mg/dL 8.5-10.5 protein, total (test code = 7.3 g/dL 6.1-8.3 protein, total) albumin (test code = albumin) 4.8 g/dL 3.5-5.2 calc globulin (test code = 2.5 g/dL 1.9-3.7 calc globulin) calc A/G ratio (test code = 1.9 ratio 1.0-2.6 calc A/G ratio) bilirubin, total (test code = 0.6 mg/dL <=1.2 bilirubin, total) alkaline phosphatase (test 74 U/L 38-117 code = alkaline phosphatase) AST (test code = AST) 24 U/L 9-40 ALT (test code = ALT) 26 U/L 5-40 [facility]inteThyrotropin [Units/volume] in Serum or [id number] 00:00:00 Test Item Value Reference Range Interpretation Comments TSH, third generation (test code 1.810 uIU/mL 0.400-4.100 = TSH, third generation) [facility] Ab [Presence] in Serum by RPR 2019-12-01 00:00:00 Test Item Value Reference Range Interpretation Comments RPR result (test code = RPR non-reactive non-reactive result) RPR titer (test code = RPR not indic. not indic. titer) [facility] aPTT panel - Platelet poor plasma by Coagulation [id number] 00:00:00 Test Item Value Reference Range Interpretation Comments prothrombin time (PT) (test code 13.9 seconds 12.5-14.7 = prothrombin time (PT)) INR (test code = INR) 1.0 see below PTT (test code = PTT) 30.1 seconds 25.2-40.0 [facility]HIV 1+2 Ab [Presence] in Serum or Plasma by [id number] 00:00:00 Test Item Value Reference Range Interpretation Comments HIV 1/2 4TH gen, rflx conf (test non-reactive non-reactive code = HIV 1/2 4TH gen, rflx conf) [facility] 2000 panel - Serum 2019-12-01 00:00:00 Test Item Value Reference Range Interpretation Comments hepatitis A IgM (test code = non-reactive non-reactive hepatitis A IgM) hepatitis B core IgM (test code non-reactive non-reactive = hepatitis B core IgM) hepatitis B surf Ag (test code = non-reactive non-reactive hepatitis B surf Ag) hepatitis C antibody (test code non-reactive non-reactive = hepatitis C antibody) interpretation hepatitis A: (note) (test code = interpretation hepatitis A:) interpretation hepatitis B: (note) (test code = interpretation hepatitis B:) interpretation hepatitis C: (note) (test code = interpretation hepatitis C:) [facility]lamydia trachomatis+Neisseria gonorrhoeae DNA [Presence] in Urine by ANSLEY with probe [id number] 00:00:00 Test Item Value Reference Range Interpretation Comments gonorrhea, tma (test code = negative negative gonorrhea, tma) chlamydia, tma (test code = negative negative chlamydia, tma) [facility]inte[facility]inalysis complete W Reflex Culture panel - [id number] 00:00:00 Test Item Value Reference Range Interpretation Comments color (test code = color) yellow yellow-straw appearance (test code = appearance) turbid clear A specific gravity (test code = 1.026 1.005-1.035 specific gravity) leukocyte esterase (test code = negative negative leukocyte esterase) nitrite (test code = nitrite) negative negative pH (test code = pH) 5.0 5.0-9.0 protein (test code = protein) negative negative glucose (test code = glucose) negative negative ketones (test code = ketones) negative negative urobilinogen (test code = <2.0 <=2.0 urobilinogen) bilirubin (test code = bilirubin) negative negative occult blood (test code = occult negative negative blood) white blood cells (test code = white 0-5 0-5 blood cells) red blood cells (test code = red 0-2 0-5 blood cells) epithelial cells (test code = 5-10 0-10 epithelial cells) [facility] 1996 panel - Serum or Plasma 2019-12-01 00:00:00 Test Item Value Reference Range Interpretation Comments cholesterol (test code = 176 mg/dL <200 cholesterol) triglycerides (test code = 53 mg/dL <150 triglycerides) HDL cholesterol (test code = HDL 62 mg/dL >39 cholesterol) Cholesterol in LDL [Mass/volume] 100 mg/dL <100 H in Serum or Plasma (test code = 2089-1) risk ratio LDL/HDL (test code = 1.61 ratio <3.22 risk ratio LDL/HDL) [facility] Auto Differential panel - Blood 2019-12-01 00:00:00 Test Item Value Reference Range Interpretation Comments WBC (test code = WBC) 4.6 K/uL 3.5-10.0 RBC (test code = RBC) 4.74 M/uL 3.80-5.20 hemoglobin (test code = hemoglobin) 14.1 g/dL 12.0-16.0 hematocrit (test code = hematocrit) 42.5 % 35.0-46.0 MCV (test code = MCV) 89.7 fL 80.0-99.0 MCH (test code = MCH) 29.7 pg 25.0-34.0 MCHC (test code = MCHC) 33.2 g/dL 31.0-36.0 RDW (test code = RDW) 12.2 % 11.5-15.0 neutrophils (test code = 82.0 % 40.0-75.0 H neutrophils) lymphocytes (test code = 10.3 % 20.0-45.0 L lymphocytes) monocytes (test code = monocytes) 5.7 % 4.0-12.0 eosinophils (test code = 1.3 % 0.0-7.0 eosinophils) basophils (test code = basophils) 0.7 % 0.0-2.0 platelet count (test code = 156 K/uL 130-400 platelet count) [facility] 2000 [facility] - Serum or [id number] 00:00:00 Test Item Value Reference Range Interpretation Comments glucose (test code = glucose) 95 mg/dL 70-99 BUN (test code = BUN) 19 mg/dL 6-20 creatinine (test code = 0.67 mg/dL 0.60-1.30 creatinine) eGFR amer. (test code 145 mL/min/1.73 >60 = eGFR amer.) eGFR non- amer. (test 125 mL/min/1.73 >60 code = eGFR non- amer.) calc BUN/creat (test code = 28 ratio 6-28 calc BUN/creat) sodium (test code = sodium) 140 mEq/L 133-146 potassium (test code = 4.1 mEq/L 3.5-5.4 potassium) chloride (test code = 102 mEq/L 95-107 chloride) carbon dioxide (test code = 25 mEq/L 19-31 carbon dioxide) calcium (test code = calcium) 9.7 mg/dL 8.5-10.5 protein, total (test code = 7.3 g/dL 6.1-8.3 protein, total) albumin (test code = albumin) 4.8 g/dL 3.5-5.2 calc globulin (test code = 2.5 g/dL 1.9-3.7 calc globulin) calc A/G ratio (test code = 1.9 ratio 1.0-2.6 calc A/G ratio) bilirubin, total (test code = 0.6 mg/dL <=1.2 bilirubin, total) alkaline phosphatase (test 74 U/L 38-117 code = alkaline phosphatase) AST (test code = AST) 24 U/L 9-40 ALT (test code = ALT) 26 U/L 5-40 [facility]Thyrotropin [Units/volume] in Serum or [id number] 00:00:00 Test Item Value Reference Range Interpretation Comments TSH, third generation (test code 1.810 uIU/mL 0.400-4.100 = TSH, third generation) [facility] Ab [Presence] in Serum by RPR 2019-12-01 00:00:00 Test Item Value Reference Range Interpretation Comments RPR result (test code = RPR non-reactive non-reactive result) RPR titer (test code = RPR not indic. not indic. titer) [facility] aPTT panel - Platelet poor plasma by Coagulation [id number] 00:00:00 Test Item Value Reference Range Interpretation Comments prothrombin time (PT) (test code 13.9 seconds 12.5-14.7 = prothrombin time (PT)) INR (test code = INR) 1.0 see below PTT (test code = PTT) 30.1 seconds 25.2-40.0 [facility]+2 Ab [Presence] in Serum or Plasma by [id number] 00:00:00 Test Item Value Reference Range Interpretation Comments HIV 1/2 4TH gen, rflx conf (test non-reactive non-reactive code = HIV 1/2 4TH gen, rflx conf) [facility] 2000 panel - Serum 2019-12-01 00:00:00 Test Item Value Reference Range Interpretation Comments hepatitis A IgM (test code = non-reactive non-reactive hepatitis A IgM) hepatitis B core IgM (test code non-reactive non-reactive = hepatitis B core IgM) hepatitis B surf Ag (test code = non-reactive non-reactive hepatitis B surf Ag) hepatitis C antibody (test code non-reactive non-reactive = hepatitis C antibody) interpretation hepatitis A: (note) (test code = interpretation hepatitis A:) interpretation hepatitis B: (note) (test code = interpretation hepatitis B:) interpretation hepatitis C: (note) (test code = interpretation hepatitis C:) [facility]lamydia trachomatis+Neisseria gonorrhoeae DNA [Presence] in Urine by ANSLEY with probe [id number] 00:00:00 Test Item Value Reference Range Interpretation Comments gonorrhea, tma (test code = negative negative gonorrhea, tma) chlamydia, tma (test code = negative negative chlamydia, tma) [facility] Programpregnancy test, [id number] 11:52:00 Test Item Value Reference Range Interpretation Comments HCG (test code = HCG) negative [facility] Programpregnancy test, [id number] 11:52:00 Test Item Value Reference Range Interpretation Comments HCG (test code = HCG) negative [facility] Programpregnancy test, [id number] 11:52:00 Test Item Value Reference Range Interpretation Comments HCG (test code = HCG) negative [facility] Programpregnancy test, [id number] 11:52:00 Test Item Value Reference Range Interpretation Comments HCG (test code = HCG) negative [facility] Programpregnancy test, [id number] 11:52:00 Test Item Value Reference Range Interpretation Comments HCG (test code = HCG) negative [facility] Programpregnancy test, [id number] 11:52:00 Test Item Value Reference Range Interpretation Comments HCG (test code = HCG) negative [facility] Program
--- OUTSIDE RECORDS SUMMARY | 2020-04-08 19:10 | XMS REPORT | Summary of Care ---
:1995 Author Organization [facility] Address [address] [place] [address] Care Team Providers Name Role Phone Virgen Primary Care Provider Reason for Visit Reason Comments Referral/consult Encounter Details Date Type Department Care Team Description 01/10/2020 Case Management [facility] Pediatric Huseyin Kessler Ref erral/consult Cardiology, Shala Hook MD [address] [place] [address] [id number] [place] [address] [phone] Allergies Active Allergy Reactions Severity Noted Date [...] of digits 11/18/2012 Overview: ICD10 Diagnosis Term Firer Retort Utility Cyanosis 11/18/2012 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
--- OUTSIDE RECORDS SUMMARY | 2020-04-08 19:11 | XMS REPORT | Summary of Care ---
:1995 Author Organization [facility] Address [address] [place] [address] Care Team Providers Name Role Phone Virgen Primary Care Provider Reason for Visit Reason Comments Refill Request Encounter Details Date Type Department Care Team Description 01/19/2020 Refill [facility] Pediatric Huseyin Kessler, Refill Request Cardiology, Shala Wilhelm MD [address] [facility] [id number] [place] [address] [place] [address] [phone] Allergies Active Allergy Reactions Severity Noted Date Comments No Known Drug Allergies Unknown - See comments 016 documented as of this encounter (statuses as of 01/19/2020) Medications Medication Sig Dispensed Refills Start Date [...] as of this encounter (statuses as of 01/19/2020) Active Problems Problem Noted Date Epigastric pain 01/17/2016 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
--- OUTSIDE RECORDS SUMMARY | 2020-04-08 19:11 | XMS REPORT | Encounter Summary ---
:1995 Author Reason for Visit psychotherapy Instructions 1. Posttraumatic stress disorder Discussion Note: None recorded.Patient educational handouts: No information available. Plan of Care Patient Instructions Client will continue to journal and identify her cognitive distortions. Reminders Provider Appointments Mental 01/18/2020 Long cartwright LPC Health Visit 1:00PM Mental 01/24/2020 Long balderas, MR TEACHER Health Visit 2:00PM Est 03/09/2020 Stefan farley MD Telehealth- Video PSY 9:45AM Lab None recorded. Referral None recorded. Procedures None recorded. Surgeries None recorded. Imaging None recorded. Medications Name Start Date Asprin Ec Low Dose 81 mg tablet,delayed release Take 1 tablet every day by oral route. enalapril maleate 2.5 mg tablet TAKE 1 TABLET BY MOUTH IN THE MORNING AND 2 IN THE EV ENING iron medroxyprogesterone 150 mg/mL intramuscular syringe INJECT 1 ML EVERY 3 MONTHS BY INTRAMUSCULAR ROUTE. prazosin 1 mg capsule TAKE 1 CAPSULE BY MOUTH ONCE DAILY AT BEDTIME FOR 30 DAYS Medications Administered None recorded. Vitals None recorded. Results Lab Results None recorded. Allergies Code Code System Name Reaction Severity Status Onset NKDA Problems Name Status Onset Date Source Posttraumatic Stress Disorder Active 10/26/2019 Procedures Date Name Performed by Procedure on Heart Information not avai lable Vaccine List Vaccine Type influenza, injectable, quadrivalent, pre servative free 11/30/20190.5 mL Tdap 11/30/20190.5 mL Social History Tobacco Smoking Status Never Smoker Past Encounters Encounter Date Diagnosis Provider 01/11/2020 Posttraumatic Stress Disorder Long balderas, [facility]: [address] [place] [address], Ph. 01/04/2020 Posttraumatic Stress Disorder Long balderas, MR TEACHER: [address] [place] [address], Ph. 01/04/2020 Major Depressive Disorder JEFE Jara: [address], [address], [place] [address], Ph. 12/28/2019 Posttraumatic Stress Disorder Long balderas, MR TEACHER: [address], [address], [place] [address], Ph. 12/23/2019 Moderate Recurrent Major Stefan Jones MD: [id number] Depression; Chronic [address], [address], [place] [address], Ph. 12/21/2019 Posttraumatic Stress Disorder Long balderas, MR TEACHER: [address], [address], [place] [address], Ph. 12/14/2019 Posttraumatic Stress Disorder Long balderas, MR TEACHER: [address], [address], [place] [address], Ph. History of Present Illness [facility] hotherapy Intervention Reported By: Patient HPI: Treatment Compliance: Seth jacobs compliant. Psychotherapy Intervention: CBT. Therapy Progress: Sympt oms showing improvement. Cognitive Themes Discussed: psychoeducational training. Emotional Themes Discussed: anxiety. Behavioral Themes D iscussed: monitor response to meds. Social Themes Discussed: develop pr osocial support, improving relationships. Treatment Factors: patient d emonstrates benefit from treatment, ongoing treatment required Notes: <p>The client is experiencin g a significant decrease in her symptoms over the past week and state d the medication has been helping. The client is still struggling s etting boundaries and expectation with her mother even though her mothe r is causing her distress. The client is also experiencing anxiety on a regular bases but acknowledged it has improved. The client and the clinician discussed the different experiences she has with anx iety and the recurring thoughts she has. The clinician educated the clien t on what anxiety is and how it is reinforced with our behavior s. The client denied any HI/SI/SA.</p> Note: <p>{{Patient arrived on time and appeared willing and eager to engage in session.*| Patient logged in using [facility] telehealth services and appeared willing and eager to engage in telebehavioral therapy.}}</p> Review of Systems None recorded. Physical Exam [facility] Status Exam Reported By: Patient Mental Status Exam: Appearance: well-groomed, cl best, normal weight. Behavior: eye contact, cooperative, calm, pleasant, talkative. Speech: fluent, clear, normal volume. Percep tion: no hallucinations. Cognition: alert, oriented to situation , oriented to time, oriented to place, oriented to person, m reji intact, normal concentrating ability, normal attention. I ntelligence: average. Memory: remote memory intact, recent memory intact. Mood: happy, pleased. Affect: congruent to thought content, anxious. Insight: intact. Judgment: intact. Thought Pr ocesses: intact. Thought Content: unremarkable. Motor Activity : intact Notes: <p>{{Established Individual Therapy Session*| Initial Individual Therapy Assessment | Initial Psychological Evaluation | Psychological Testing Admini stration | Psychological Testing Review Session | Same Day Ap pointment |Crisis Management Appointment | Integration In tervention Session | Tremayne Session | Group Therapy Session | Tele behavioral Health Therapy Session | Telebehavioral Health Initia l Assessment | Phone Behavioral Health Therapy Session }}</p >"
--- OUTSIDE RECORDS SUMMARY | 2020-04-08 19:11 | XMS REPORT | Summary of Care ---
:1995 Author Organization [facility] Address [address] [place] [address] Care Team Providers Name Role Phone Virgen Primary Care Provider Reason for Visit Reason Comments Refill Request Encounter Details Date Type Department Care Team Description 01/31/2020 Refill [facility] Pediatric Huseyin Kessler, Refill Request Cardiology, Shala Wilhelm MD [address] [facility] [id number] [place] [address] [place] [address] [phone] Allergies Active Allergy Reactions Severity Noted Date Comments No Known Drug Allergies Unknown - See comments 016 documented as of this encounter (statuses as of 02/01/2020) Medications Medication Sig Dispensed Refills Start Date [...] as of this encounter (statuses as of 02/01/2020) Active Problems Problem Noted Date Epigastric pain 01/17/2016 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 Kessler, no further refills will be granted until patient is seen in clinic. youth accommodation support worker has tried to reach out to the patient to assist with insurance problems. documented in this encounter Plan of Treatment [...]
--- OUTSIDE RECORDS SUMMARY | 2020-04-08 19:11 | XMS REPORT | Summary of Care ---
:1995 Author Organization [facility] Address [address] [place] [id number] Care Team Providers Name Role Phone Virgen Primary Care Provider Reason for Visit Reason Comments Social Work Encounter Details Date Type Department Care Team Description 01/13/2020 Case Management [facility] Pediatric Jorge Luis Pimentel, [facility] Social Work Cardiology, [address] [place] [address] [place] [address] Allergies Active Allergy Reactions Severity Noted Date Comments No Known Drug Allergies Unknown - See comments 016 documented as of this encounter (statuses as of 01/13/2020) Medications Medication Sig Dispensed Refills Start Date [...] as of this encounter (statuses as of 01/13/2020) Active Problems Problem Noted Date Epigastric pain 01/17/2016 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 Consult put in for documentation purposes. 24 year old female needing assistance with obtaining medical insurance due to her complex congenitalheart problems. access services representative was initiated in 2018. Patient never followed up with those instructions, nor came back to clinic for follow up. Per Dr. Kessler, unable to continue prescribing medication until seen in clinic. Patient may be referred to adult cardiology for continued treatment if necessary. SW reviewed chart and researched programs that can help her since she is unfunded. SW found [facility] in [place]. SW called and spoke to the clinic, and found that there are trained specialists that can help with the application process to apply for SSI, Medicaid, Women's Medicaid, Indigent Care Program, and IMAP / LMAP. Patient needs to either call or go in person to speak to Elise Cheatham, / [address], . This clinic / resource is located in her home town and should be very easily accessible to her. SW attempted to contact patient to explain to her that Dr. Kessler cannot continue to prescribe her medication without seeing her, and discuss transferring her care to an adult clinic that is closer to her home. SW left voicemail message requesting a phone call back on [employer]. All other phone numbers in her chart were disconnected. Will continue to follow up as necessary. Cecilia Pimentel LMSW documented in this encounter Plan of Treatment [...]
--- OUTSIDE RECORDS SUMMARY | 2020-04-08 19:11 | XMS REPORT | Summary of Care ---
:1995 Author Organization [facility] Address [address] [place] [address] Care Team Providers Name Role Phone Virgen Primary Care Provider Reason for Visit Reason Comments Social Work Encounter Details Date Type Department Care Team Description 01/16/2020 Case Management [facility] Pediatric Jorge Luis Pimentel, [facility] Social Work Cardiology, [address] [place] [address] [place] [address] Allergies Active Allergy Reactions Severity Noted Date Comments No Known Drug Allergies Unknown - See comments 016 documented as of this encounter (statuses as of 01/16/2020) Medications Medication Sig Dispensed Refills Start Date [...] as of this encounter (statuses as of 01/16/2020) Active Problems Problem Noted Date Epigastric pain 01/17/2016 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 AI (aortic incompetence) 11/18/2012 Clubbing of digits 11/18/2012 Overview: ICD10 Diagnosis 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 Left detailed voicemail message on [employer]. If patient calls back and I am not available, please provide her with information below regarding community resources in her area. Cecilia Pimentel LMSW Commercial Service Technician Note Received referral from Cardiology Clinic: LATE ENTRY: This referral has already been initiated by Commercial Service Technician. Consult put in for documentation purposes. 24 year old female needing assistance with obtaining medical insurance due to her complex congenitalheart problems. catering convention services manager was initiated in 2018. Patient never followed up with those instructions, nor came back to clinic for follow up. Per Dr. Kessler, unable to continue prescribing medication until seen in clinic. Patient may be referred to adult cardiology for continued treatment if necessary. SW reviewed chart and researched programs that can help her since she is unfunded. [facility] [place]. SW called and spoke to the clinic, [...] message requesting a phone call back on [employer]. All other phone numbers in her chart [...]
--- OUTSIDE RECORDS SUMMARY | 2020-04-08 19:12 | XMS REPORT | Summary of Care ---
:1995 Author Organization [facility] Address [address] [place] [address] Care Team Providers Name Role Phone Virgen Primary Care Provider Reason for Visit Reason Comments Refill Request Encounter Details Date Type Department Care Team Description 02/05/2020 Refill [facility] Pediatric Huseyin Kessler, Refill Request Cardiology, Shala Wilhelm MD [address] [facility] [id number] [place] [address] [place] [address] [phone] Allergies Active Allergy Reactions Severity Noted Date Comments No Known Drug Allergies Unknown - See comments 016 documented as of this encounter (statuses as of 02/06/2020) Medications Medication Sig Dispensed Refills Start Date [...] as of this encounter (statuses as of 02/06/2020) Active Problems Problem Noted Date Epigastric pain 01/17/2016 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 AI (aortic incompetence) 11/18/2012 Clubbing of digits 11/18/2012 Overview: ICD10 Diagnosis 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
--- OUTSIDE RECORDS SUMMARY | 2020-04-08 19:12 | XMS REPORT | Encounter Summary ---
:1995 Author Reason for Visit psychotherapy Instructions 1. Posttraumatic stress disorder Discussion Note: None recorded.Patient educational handouts: No information available. Plan of Care Patient Instructions The client stated that the next brenda e she has a strong emotional response, she will utilize the friendships she has to help talk her through the experience. Reminders Provider Appointments Mental 02/22/2020 Long cartwright LPC Health Visit 2:00PM Est 03/09/2020 Stefan farley [...] ML EVERY 3 MONTHS BY INTRAMUSCULAR ROUTE. naproxen 500 mg tablet Take 1 tablet twice x 5 days, then bid prn pain. prazosin 1 mg capsule TAKE 1 CAPSULE BY MOUTH ONCE DAILY AT BEDTIME FOR 30 DAYS sertraline 50 mg tablet TAKE 1 2 (ONE HALF) TABLET BY MOUTH ONC E DAILY FOR 1 WEEK THEN TAKE 1 TABLET ONCE DAILY WITH MEALS FOR 30 DAYS Medications Administered None recorded. [...] Smoker Past Encounters Encounter Date Diagnosis Provider 02/08/2020 Posttraumatic Stress Disorder Long balderas LPC: [address], [address], [place] [address], Ph. 02/01/2020 Carpal Tunnel Syndrome of Right Ely Riana Pacheco, [place]: [address] [address] [facility] [address], [place] [address], Ph. 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 History of Present Illness [facility] Psyc hotherapy Intervention Reported By: Patient HPI: Treatment Compliance: Patien t is inconsistent. Psychotherapy Intervention: CBT. Therapy P rogress: Symptoms showing improvement. Cognitive Themes Discussed: positive self talk, a major concern. Emotional Themes Discussed: identify feelings, mood changes. Social Themes Discussed: develop pr osocial support. Treatment Factors: patient demonstrates benefit from tr eatment, ongoing treatment required Notes: <p>The client reported a rec ent anxiety and depression episode that had concerned her. The client di d report that outside the recent episode the client was doing well and hurst d improved in many areas such as making new friends and developing socia l supports. The client denied any HI/SI/SA.</p> Note: <p>{{Patient arrived on time and appeared willing and eager to engage in session.*| Patient logged in using [employer] telehealth services and appeared willing and eager to engage in telebehavioral therapy.}}</p> Review of Systems None recorded. Physical Exam [facility] Ment al Status Exam Reported By: Patient Mental Status [...] remote memory intact, recent memory intact. Mood: sad, fearful. Affect: congruent to thought content , anxious, sad, worried. Insight: intact. Judgment: intact. Th ought Processes: intact. Thought Content: unremarkable. Motor Activity: intact Notes: <p>{{Established Individual Therapy Session*| Initial Individual Therapy Assessment | Initial Psychological Evaluation | Psychological Testing Admini stration | Psychological Testing Review Session | Same Day Ap pointment |Crisis Management Appointment | Integration In tervention Session | Tremayne Session | Group Therapy Session | Init ial Couples Session | Established Couples Session | Initial Fa cate Session | Established Family Session | Telebehavioral [facility] Therapy Session | Telebehavioral Health Initial Assessment | Phone Behavioral Health Therapy Session }}</p>"
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
--- OUTSIDE RECORDS SUMMARY | 2020-04-08 19:12 | XMS REPORT | Encounter Summary ---
:1995 Author Reason for Visit psychotherapy Instructions 1. Posttraumatic stress disorder Discussion Note: None recorded.Patient educational handouts: No information available. Plan of Care Patient Instructions Client will use coping skills discu ssed this session during the next week. Reminders Provider Appointments Est 03/09/2020 Stefan Jones MD Telehealth- Video PSY 9:45AM Lab None [...] BY INTRAMUSCULAR ROUTE. 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 02/08/2020 Posttraumatic Stress Disorder Long balderas, YIELD LOSS INSPECTOR: [address] [facility] [place] [address], Ph. 02/01/2020 Carpal Tunnel Syndrome of Right JEFE Jara: [address] [facility] [address], [address], [place] [address], Ph. History of Present Illness [facility] Psyc hotherapy Intervention Reported By: Patient HPI: Treatment Compliance: Patien t compliant. Psychotherapy Intervention: CBT. Therapy Progress: respo nsive to interventions, expected temporary decline. Cognitive Themes Di scussed: a major concern, poor coping. Emotional Themes Discussed: general emotional challenge. Behavioral Themes Discussed: distractio n/alternative focus, relaxation techniques. Social Themes Discussed: int erpersonal dynamics, improving relationships. Treatment Fac tors: patient demonstrates benefit from treatment, ongoing treatment required Notes: <p>The focus of this session was to examine the barriers and changes in the clients life that have b een causing distress for the client. Along with this the client and cli nician discussed mindfulness and coping skills such as deep breathin g and thought stoping. The client denied any HI/SI.</p> Note: <p>{{Patient arrived on time and appeared willing and eager to engage in session.*| Patient logged in using [employer] telehealth services and appeared willing and eager to engage in telebehavioral therapy.}}</p> Review of Systems None recorded. Physical Exam [facility] Ment al Status Exam Reported By: Patient [...] remote memory intact, recent memory intact. Mood: guilty, fearful. Affect: congruent to thought content, anxious, worried. Insight: intact. Judgment: intact. Th ought [...] | Established Family Session | Telebehavioral Hea lt Therapy Session | Telebehavioral Health Initial Assessment | Phone Behavioral Health Therapy Session }}</p>"
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
--- OUTSIDE RECORDS SUMMARY | 2020-04-08 19:12 | XMS REPORT | Encounter Summary ---
:1995 Author Reason for Visit psychotherapy Instructions 1. Posttraumatic stress disorder Discussion Note: None recorded.Patient educational handouts: No information available. Plan of Care Patient Instructions Client will make appointment with reynaldo bravo psychiatrist to address concerns about her medications. The client will begin journ alibrian. Reminders Provider Appointments Mental 03/07/2020 Long cartwright [facility] Visit 2:00PM Est [...] Smoker Past Encounters Encounter Date Diagnosis Provider 02/29/2020 Posttraumatic Stress Disorder Long balderas LPC: [id number], [address], [place] [address], Ph. 02/22/2020 Posttraumatic Stress Disorder Long balderas, [employer]: [id number], [address], [place] [address], Ph. 02/08/2020 Posttraumatic Stress Disorder Long balderas, [employer] MANAGER: [address], [address], [place] [address], Ph. 02/01/2020 Carpal Tunnel Syndrome of Right JEFE Jara: [id number], [address], [place] [address], Ph. History of Present Illness [facility] Psyc hotherapy Intervention Reported By: Patient HPI: Treatment Compliance: Seth jacobs compliant. Psychotherapy Intervention: CBT. Therapy Progress: Sympt oms showing improvement. Cognitive Themes Discussed: positive self maurizio k, self concept. Emotional Themes Discussed: general emotional challenge. Behavioral Themes Discussed: building coping skills, manage trigge rs. Social Themes Discussed: interpersonal dynamics, improving relation ships. Treatment Factors: ongoing treatment required Notes: <p>The focus of this session was to examine and address continued struggles the client has wit h boundaries and self esteem. The client reported having a cutting ex periences this week saying that she had become overwhelmed with the stress coming from her family and the responsibilities they put on her in relation to their problems. The client and the clinician use d the remainder of the session to discuss the coping skills learned an d the importance of documenting behavioral, emotional experiences. The c lient denied any current HI/SI/SA.</p> Note: <p>{{Patient arrived on time and appeared willing and eager to engage in session.*| Patient logged in using [facility] and appeared willing and eager to engage in telebehavioral therapy.}}</p> Review of Systems None recorded. Physical Exam [facility] Ment al Status Exam Reported By: Patient [...] memory intact, recent memory intact. Mood: sad, frustrated, concerned, fearful. Affect: congruent to thought content, anxious, sad. Insight: intac t. Judgment: intact. Thought Processes: intact. Thought C ontent: unremarkable. Motor Activity: intact Notes: <p>{{Established Individual [...]
--- OUTSIDE RECORDS SUMMARY | 2020-04-08 19:13 | XMS REPORT | Summary of Care ---
:1995 Author Organization [facility] Address [address] [place] [id number] Care Team Providers Name Role Phone Virgen Primary Care Provider Reason for Referral MRI/CAT Scan (STAT) Status Reason Specialty Diagnoses / Referred By Referred To Procedures Contact Contact New Request Diagnostic Diagnoses Chest pain, unspecified type Irma K Radiology Procedures CT CHEST PULMONARY ANGIOGRAM [place] [facility] [address] [place] [address] (Routine) Status Reason Specialty Diagnoses / Referred By Referred To Procedures Contact Contact New Request Procedures Rodrigo Brewster, UNILATERAL VENOUS PAC DUPLEX LOWER [address] [facility] EXTREMITY BY [place] [address] VASCULAR LAB Reason for Visit Reason Comments Chest Pain Fever Auth/Cert Status Reason Specialty Diagnoses / Referred By Referred To Procedures Contact Contact Emergency Medicine [facility] ergency Dept [address] [place] [address] Fax: Encounter Details Date Type Department Care Team Description 03/31/2020 - Emergency ADC-Emergency Rodrigo Brewster, Chest pain , unspecified type (Primary Dx); 04/01/2020 Department PAC Pain of right lower extremity; [address] [facility] [address] POLO (shortness of breath); [place] [address] Cellulitis of right lower extremity; [place] [address] Acute bronchitis, unspecified organism; [phone] Screening for viral disease Allergies Active Allergy Reactions Severity Noted Date Comments No Known Drug Allergies Unknown - See comments 016 documented as of this encounter (statuses as of 04/01/2020) Medications Medication Sig Dispensed Refills Start Date [...] MORNING AND 2 TABLETS IN THE EVENING levoFLOXacin (LEVAQUIN) Take 1 tablet 6 tablet 0 04/01/2020 Active 500 mg by mouth every tabletIndications: 24 Cellulitis of right (twenty-four) lower extremity, Acute hours. 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 documented as of this encounter Last Filed Vital Signs Vital Sign Reading Time Taken Comments Blood Pressure 113/58 04/01/2020 5:02 AM POSTMASTER Pulse 71 04/01/2020 5:02 AM POSTMASTER Temperature 36.9 C (98.4 F) 04/01/2020 3:09 AM POSTMASTER Respiratory Rate 16 04/01/2020 5:02 AM POSTMASTER Oxygen Saturation 95% 04/01/2020 5:02 AM POSTMASTER Inhaled Oxygen Concentration - - Weight 54.4 kg (120 lb) 03/31/2020 11:45 PM POSTMASTER Height 152.4 cm (5') 03/31/2020 11:45 PM POSTMASTER Body Mass Index 23.44 03/31/2020 11:45 PM POSTMASTER documented in this encounter Discharge Instructions Selin Jeffery MD - 04/01/2020 DIAGNOSIS Diagnoses that have been ruled out: None Diagnoses that are still under consideration: None Final diagnoses: Chest pain, unspecified type Pain of right lower extremity SOB (shortness of breath) Cellulitis of right lower extremity Acute bronchitis, unspecified organism Screening for viral disease NO LIFE-THREATENING FINDINGS ON TODAY'S EXAM. PROCEDURES IN THE ER TODAY: Orders Placed This Encounter Procedures CT CHEST PULMONARY ANGIOGRAM COVID-19 (ID NOW RAPID TESTING) Lactic Acid Whole Blood COMP. METABOLIC PANEL (30505) CBC WITH DIFF URINALYSIS BLOOD CULTURE SCREEN BLOOD CULTURE SCREEN TROPONIN I POCT TEST POCT TEST D-DIMER LAB ONLY COVID INTERPRETATION CORONAVIRUS COVID-19 TESTING MEDICATIONS ADMINISTERED IN THE ER TODAY AND DISCHARGE MEDICATIONS: Orders Placed This Encounter Medications acetaminophen (TYLENOL) tablet 1,000 mg ketorolac (TORADOL) injection 30 mg iohexol (OMNIPAQUE 350 BULK-100 mL) injection 100 mL levoFLOXacin (LEVAQUIN) tablet 500 mg FOLLOW-UP RECOMMENDATIONS: RECOMMEND FOLLOW-UP WITH YOUR PRIMARY CARE PROVIDER OR MARINE INSULATOR IN 2-5 DAYS, ESPECIALLY IF NO IMPROVEMENT IN SYMPTOMS. MAY FOLLOW-UP WITH A PROVIDER OF YOUR CHOICE, SUCH : 1. A PHYSICIAN OF YOUR CHOICE 2. [facility], . LOCATIONS IN [facility] 3. [facility], [address] [place] [address]; [phone] OR, IF YOU WISH TO FOLLOW-UP WITHIN THE [facility], MAY TRY THESE OPTIONS (CLINIC APPOINTMENTS AVAILABLE ON [id number]-AA-[id number] BASIS): 1. SCHEDULE AN APPOINTMENT ONLINE AT [email or web address] 2. OR CALL THE [facility] ACCESS CENTER AT OR 3. OR CALL YOUR [facility] PHYSICIAN'S OFFICE DIRECTLY IF YOU ARE ALREADY AN ESTABLISHED [facility] PATIENT. RETURN TO ER FOR WORSENING OF SYMPTOMS documented in this encounter ED Notes Desiree Ramirez RN - 03/31/2020 11:46 PM CSTPatient reports also with pain to r leg/ groin area. Rates as 7/10 and pain to chest as 5/10. Reports tenderness to leg. MASTER Desiree Ramirez RN - 03/31/2020 11:43 PM CSTTaniya Hudson is a 24 year old female co chest pain and Sob. 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 Reports has been out of her heart medication and is pretty sure is the reason for her chest pain and little bit of sob. Patient was unaware that she had fever upon arrival. 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 Angella's chest pain is 5/10 and worsened with inspiration x 3days. Also with mild SOB that has gradually progressed over the 3 days. She's been off of enalaprilx 1-2 months due to loss of insurance. She has a 102 fever on arrival that she was unaware of. Shecame in due to her 7/10 right leg pain. She has a warm faintly erythematous region of her right upper medial thigh that is painful to light touch. It began 2 days ago, but has become more tender. Non/v/d. No respiratory distress. No h/o DVT/PE. No recent covid symptoms other than fever. No h/o cellulitis or vasculitis. Past Medical History/Immunizations: Past Medical History: Diagnosis Date Depression Other (abnormal) findings on radiological examination of breast irregular heartbeat Seizures 2006 Tetanus received in last 5 years: Yes Childhood immunizations: Up-to-date Allergies: Allergies Allergen Reactions No Known Drug Allergies Unknown - See comments Past Social History: Tobacco Use Passive Smoke Exposure - Never Smoker. Smokeless Tobacco: Never used smokeless tobacco. Alcohol Use No. Drug Use No. Sexual Activity Sexually active; Partners: Male; Control/Protection: Condom. Past Surgical History: Past Surgical History: Procedure Laterality Date CARDIAC CATH PHYSICIAN 1999, 2002, 2004, 2005 CENTRAL VENOUS ACCESS CATHETER PLACEMENT 07/1997 PEG REPLACEMENT (ENDO) 07/1997 REPR (SIMPLE FONTAN) 11/27/2005 STENT 09/03/2005 left pulmonary artery TONSILLECTOMY WITH ADENOIDECTOMY 09/20/2003 Review of Systems: Review of Systems Constitutional: Positive for fever. Negative for activity change, appetite change, chills and diaphoresis. HENT: Negative for congestion, ear discharge, ear pain, facial swelling, hearing loss, nosebleeds, rhinorrhea, sore throat, trouble swallowing and voice change. Eyes: Negative for pain, discharge, redness and visual disturbance. Respiratory: Positive for shortness of breath. Negative for apnea, cough, chest tightness and wheezing. Cardiovascular: Positive for chest pain. Negative for palpitations and leg swelling. Gastrointestinal: Negative for abdominal distention, abdominal pain, constipation, diarrhea, nausea and vomiting. Genitourinary: Negative for dysuria, frequency, difficulty urinating and pelvic pain. Musculoskeletal: Negative for arthralgias, gait problem and myalgias. Skin: Positive for color change. Negative for pallor, rash and wound. Neurological: Negative for dizziness, syncope, facial asymmetry, speech difficulty, weakness, numbness and headaches. Psychiatric/Behavioral: Negative for behavioral problems, confusion and hallucinations. Hematological: Negative for adenopathy. Physical Exam: ED Triage Vitals [03/31/20 2345] Weight 54.4 kg (120 lb) Actual or estimated Estimated by patient/family report Height 1.524 m (5') BP (!) 140/65 Pulse 104 Resp 20 Temp 38.9 C (102 F) Temp source Oral SpO2 94 % Measured on Room air Physical Exam Constitutional: General: She is not in acute distress. Appearance: She is well-developed. She is not ill-appearing, toxic-appearing or diaphoretic. HENT: Head: Normocephalic and atraumatic. Right Ear: External ear normal. Left Ear: External ear normal. Nose: Nose normal. Mouth/Throat: Mouth: Mucous membranes are moist. Eyes: General: No scleral icterus. Right eye: No discharge. Left eye: No discharge. Conjunctiva/sclera: Conjunctivae normal. Pupils: Pupils are equal, round, and reactive to light. Neck: Musculoskeletal: Normal range of motion and neck supple. Trachea: No tracheal deviation. Cardiovascular: Rate and Rhythm: Normal rate and regular rhythm. Heart sounds: Normal heart sounds. No murmur. No friction rub. Pulmonary: Effort: Pulmonary effort is normal. No respiratory distress. Breath sounds: Normal breath sounds. No wheezing or rales. Chest: Chest wall: No tenderness. Abdominal: General: Bowel sounds are normal. There is no distension. Palpations: Abdomen is soft. Tenderness: There is no abdominal tenderness. There is no guarding or rebound. Musculoskeletal: Normal range of motion. General: Tenderness (right medial thigh tender to light touch with mild erythema, approx 6 cm region ) present. No deformity. Lymphadenopathy: Cervical: No cervical adenopathy. Skin: General: Skin is warm and dry. Capillary Refill: Capillary refill takes less than 2 seconds. Coloration: Skin is not pale. Findings: Erythema (right upper gene-medial thigh) present. No rash. Neurological: Mental Status: She is alert and oriented to person, place, and time. Coordination: Coordination normal. Psychiatric: Behavior: Behavior normal. Thought Content: Thought content normal. Judgment: Judgment normal. Radiology: Hospital Encounter on 03/31/20 CT CHEST PULMONARY ANGIOGRAM Narrative Ordering physician: Rodrigo BREWSTER Indication: Chest pain, short of breath, elevated d-dimer Comparison: None Technique: CTA of the chest was performed following the administration of intravenous contrast material. Three-dimensional reformats were generated following completion of the exam. CT scan was performed according to ALARA (as low as reasonably achievable) policy. Findings: The visualized thyroid gland is within normal limits. The patient is status post median sternotomy. There is a cardiac anomaly, with an apparent single ventricle predominantly supplying the thoracic aorta. The pulmonary arteries appear to be supplied by the SVC. No filling defect is appreciated in the lower lobe pulmonary arteries to suggest pulmonary embolus. The upper lobe arteries are not well opacified due to study timing. There is mild diffuse groundglass attenuation in the lungs bilaterally. No pathologically enlarged mediastinal or hilar lymph nodes are identified. No acute process is identified in the upper abdomen. There is splenomegaly, incompletely visualized. No acute pulmonary process is identified. Bone windows through the chest demonstrate no osseous destructive lesion. Impression Impression: No CTA evidence for pulmonary embolus. 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 The pulmonary arteries appear to be supplied by the SVC. No filling defect is appreciated in the lower lobe pulmonary arteries; evaluation of the upper lobe pulmonary arteries is limited by study timing. Correlation with patient history is recommended; the patient is status post remote median sternotomy. Mild diffuse groundglass attenuation in the lungs bilaterally, suggestive of mild pulmonary edema versus viral respiratory illness. RL: 460 AF: [id number] Lab Results (24h): Recent Results (from the past 24 hour(s)) Lactic Acid Whole Blood Collection Time: 04/01/20 12:26 AM Result Value Ref Range LACTIC ACID 1.27 0.50 - 2.20 mmol/L COVID-19 (ID NOW RAPID TESTING) Collection Time: 04/01/20 12:27 AM Specimen: NASOPHARYNGEAL SWAB Result Value Ref Range SARS-CoV-2 Rapid ID NOW Not Detected Not Detected COMP. METABOLIC PANEL (49654) Collection Time: 04/01/20 12:27 AM Result Value Ref Range NA 137 135 - 145 mmol/L K 3.9 3.5 - 5.0 mmol/L CL 106 98 - 108 mmol/L CO2 TOTAL 22 (L) 23 - 31 mmol/L AGAP 9 2 - 16 BUN 10 7 - 23 mg/dL GLUCOSE 116 (H) 70 - 110 mg/dL CREATININE 0.59 0.50 - 1.04 mg/dL TOTAL BILI 0.7 0.1 - 1.1 mg/dL CALCIUM 9.1 8.6 - 10.6 mg/dL T PROTEIN 7.2 6.3 - 8.2 g/dL ALBUMIN 4.1 3.5 - 5.0 g/dL ALK PHOS 106 34 - 122 U/L ALTv 15 5 - 35 U/L AST(SGOT) 22 13 - 40 U/L eGFR Calculation (Non-) 127.5 mL/min/1.73m2 eGFR Calculation () 154.5 mL/min/1.73m2 CBC WITH DIFF Collection Time: 04/01/20 12:27 AM Result Value Ref Range WBC 4.05 (L) 4.30 - 11.10 10*3/L RBC 3.79 (L) 3.93 - 5.25 10*6/L HGB 11.4 (L) 11.6 - 15.0 g/dL HCT 33.8 (L) 35.7 - 45.2 % MCV 89.2 80.6 - 95.5 fL MCH 30.1 25.9 - 32.8 pg MCHC 33.7 31.6 - 35.1 g/dL RDW-SD 41.0 39.0 - 49.9 fL RDW-CV 12.6 12.0 - 15.5 % PLT 145 (L) 166 - 358 10*3/L MPV 11.9 9.5 - 12.9 fL NRBC/100 WBC 0.0 0.0 - 10.0 /100 WBCs NRBC x10^3 <0.01 10*3/L GRAN MAT (NEUT) % 75.2 % IMM GRAN % 0.20 % LYMPH % 13.3 % MONO % 9.1 % EOS % 2.0 % BASO % 0.2 % GRAN MAT x10^3(ANC) 3.04 1.88 - 7.09 10*3/uL IMM GRAN x10^3 <0.03 0.00 - 0.06 10*3/uL LYMPH x10^3 0.54 (L) 1.32 - 3.29 10*3/uL MONO x10^3 0.37 0.33 - 0.92 10*3/uL EOS x10^3 0.08 0.03 - 0.39 10*3/uL BASO x10^3 <0.03 0.01 - 0.07 10*3/uL URINALYSIS Collection Time: 04/01/20 12:27 AM Result Value Ref Range APPEARANCE Hazy (A) Clear COLOR Yellow Yellow PH 7.0 4.8 - 8.0 SP GRAVITY 1.008 1.003 - 1.030 GLU U QUAL Normal Normal BLOOD 3+ (A) Negative KETONES Negative Negative PROTEIN Negative Negative UROBILIN Normal Normal BILIRUBIN Negative Negative NITRITE Negative Negative LEUK YVAN Negative Negative RBC/HPF 8 (H) 0 - 3 HPF WBC/HPF 3 0 - 5 HPF BACTERIA Few (A) Negative SQ EPITH 16 HPF TROPONIN I Collection Time: 04/01/20 12:27 AM Result Value Ref Range TROPONIN I <0.012 <=0.034 ng/mL POCT TEST Collection Time: 04/01/20 12:45 AM Result Value Ref Range POCT PREG negative On board controls acceptable with C Line positive POCT PREG LOT # [id number] POCT PREG TEST DATE 10-30-2021 D-DIMER Collection Time: 04/01/20 1:00 AM Result Value Ref Range D-DIMER 1.56 (H) <0.41 g/mL (FEU) EKG: RBBB and Sinus Tachycardia, HR 104 Unchanged from previous EKG Orders and Treatments: Orders Placed This Encounter Procedures CT CHEST PULMONARY ANGIOGRAM COVID-19 (ID NOW RAPID TESTING) Lactic Acid Whole Blood COMP. METABOLIC PANEL (43322) CBC WITH DIFF URINALYSIS BLOOD CULTURE SCREEN BLOOD CULTURE SCREEN TROPONIN I POCT TEST POCT TEST D-DIMER LAB ONLY COVID INTERPRETATION Orders Placed This Encounter Medications acetaminophen (TYLENOL) tablet 1,000 mg ketorolac (TORADOL) injection 30 mg iohexol (OMNIPAQUE 350 BULK-100 mL) injection 100 mL ED COURSE Tylenol for fever and Toradol for pain and fever. Fever resolved. Chest and leg pain resolved with toradol Duplex scan of RLE pending. Consider cellulitis. Elevated d-dimer with no PE on CT Care turned over to Dr Greene at end of shift. Patient d/w Dr Patel earlier in the night and he states unless patient with critical findings on evaluation, she can stay in [place]. She doesn't have to go to [place] based on his history of congenital cardiac disease alone. MDM: Coding Scoring Tools: No data recorded Diagnosis/Impression: ICD-10-CM ICD-9-CM 1. Chest pain, unspecified type R07.9 786.50 2. Pain of right lower extremity M79.604 729.5 3. SOB (shortness of breath) R06.02 786.05 Disposition/Condition: PENDING ED Disposition None Electronically signed by: JERICA Kim 04/01/2020 12:39 AM MASTER Associated attestation - Selin Greene MD - 04/01/2020 5:23 AM CSTAddendum I was personally available for consultation in the Emergency Department during this encounter and patient evaluation by JEFE Brewster. documented in this encounter Miscellaneous Notes ED Nurse Note - Desiree Ramirez RN - 04/01/2020 5:33 AM CSTPatient given prescription and discharge instructions with voiced understanding. Patient discharged ambulatory to home per private means D Nurse Note - Desiree Ramirez RN - 04/01/2020 4:30 AM CSTPatient to ultrasound for doppler of r le. D Nurse Note - Desiree Ramirez RN - 04/01/2020 3:17 AM CSTPatient awaiting ultrasound of right lower extremity. SOCIAL WORK MANAGER in to explain treatment plan. D Nurse Note - Rhona Pittman RN - 04/01/2020 1:07 AM CSTPatient report/care assumed by Patt Ramirez RN. D Nurse Note - Desiree Ramirez RN - 03/31/2020 11:50 PM CSTPatient walked in place for greater than a minute and O2 sat dropped to 91% on room air. MASTER documented in this encounter Plan of Treatment Name Type Priority Associated Diagnoses Date/Ti me BLOOD CULTURE SCREEN LAB STAT Chest pain, unspecif ied 04/01/2020 12:38 AM type POSTMASTER BLOOD CULTURE SCREEN LAB STAT Chest pain, unspecif ied 04/01/2020 12:38 AM type POSTMASTER LAB ONLY COVID LAB Routine Chest pain, unspecified 12:27 AM INTERPRETATION type POSTMASTER CORONAVIRUS COVID-19 LAB STAT SOB (shortness of 5:03 AM TESTING breath) POSTMASTER Name Type Priority Associated Diagnoses Order S chedule POCT TEST LAB ESTELLE Chest pain, unspecifi ed ONCE for 1 Occurrences type starting 2020 until 1 LAB ONLY COVID LAB Routine Chest pain, unspecified ON CE for 1 Occurrences INTERPRETATION type starting 03/04 until 1 CORONAVIRUS COVID-19 LAB Routine SOB (shortness of ON CE for 1 Occurrences TESTING breath) starting 2020 until 1 Health Maintenance Due Date Last Done Comments HPV VACCINES (1 - 2-dose 2008 series) Depression Screening 2009 CHLAMYDIA SCREENING 2013 SARS-CoV-2 (COVID-19) 2013 Vaccine (1 of 2) MENINGOCOCCAL B VACCINES (2 01/02/2016 12/05/2015 of [...] this topic documented as of this encounter Procedures Procedure Name Priority Date/Time Associated Diagnosis Comme nts CT CHEST PULMONARY STAT 04/01/2020 1:54 Chest pain, Resul ts for this ANGIOGRAM AM POSTMASTER unspecified type procedure a re in the results section. D-DIMER STAT 04/01/2020 1:00 Chest pain, Results for this AM POSTMASTER unspecified type procedure a re in the results section. POCT TEST ESTELLE 04/01/2020 12:45 Chest pain, Resu lts for this AM POSTMASTER unspecified type procedure a re in the results section. BLOOD CULTURE SCREEN STAT 04/01/2020 12:38 Chest pain, AM POSTMASTER unspecified type BLOOD CULTURE SCREEN STAT 04/01/2020 12:38 Chest pain, AM POSTMASTER unspecified type COVID-19 (ID NOW STAT 04/01/2020 12:27 Chest pain, Results for this RAPID TESTING) AM POSTMASTER unspecified type procedure are in the results section. URINALYSIS STAT 04/01/2020 12:27 Chest pain, Results for this AM POSTMASTER unspecified type procedure a re in the results section. CBC WITH DIFF STAT 04/01/2020 12:27 Chest pain, Results fo r this AM POSTMASTER unspecified type procedure a re in the results section. COMP. METABOLIC STAT 04/01/2020 12:27 Chest pain, Results for this PANEL (70132) AM POSTMASTER unspecified type procedure are in the results section. TROPONIN I STAT 04/01/2020 12:27 Chest pain, Results for this AM POSTMASTER unspecified type procedure a re in the results section. LACTIC ACID WHOLE STAT 04/01/2020 12:26 Chest pain, Result s for this BLOOD AM POSTMASTER unspecified type procedure a re in the results section. CONSENT/REFUSAL FOR Routine 03/31/2020 11:34 DIAGNOSIS AND PM POSTMASTER TREATMENT documented in this encounter Results CT CHEST PULMONARY ANGIOGRAM (04/01/2020 1:54 AM POSTMASTER) Specimen Impressions Performed At Impression: PACS/VR/DOSE No CTA evidence for pulmonary embolus. Major cardiac anomaly with apparent single ventricle s upplying the thoracic aorta. The pulmonary arteries appear to be supplied by the SVC. No filling defect is appreciated in the lower lobe pulmonary vj mirza; evaluation of the upper lobe pulmonary arteries is limited by study timing. Correlation with patient history is recommended; the patient is status post remote median sternotomy. Mild diffuse groundglass attenuation in the lungs bila terally, suggestive of mild pulmonary edema versus viral res piratory illness. RL: 460 AFC: [id number] Narrative Performed At This result has an attachment that is no t available. Ordering physician: Rodrigo BREWSTER PACS/VR/DOSE Indication: Chest pain, short of breath, elevated d-di linda Comparison: None Technique: CTA of the chest was performed following th e administration of intravenous contrast material. Three-dimensional refor mats were generated following completion of the exam. CT scan was performe d according to ALARA (as low as reasonably achievable) policy. Findings: The visualized thyroid gland is within jeff l limits. The patient is status post median sternotomy. There is a cardiac a nomaly, with an apparent single ventricle predominantly supplying the thoracic aorta. The pulmonary arteries appear to be supplied by the SVC. N o filling defect is appreciated in the lower lobe pulmonary arteries to terry ggest pulmonary embolus. The upper lobe arteries are not well opacifie d due to study timing. There is mild diffuse groundglass attenuation in the lungs bilaterally. No pathologically enlarged mediastinal or hilar lymph nodes are identified. No acute process is identified in the upper abdomen. T here is splenomegaly, incompletely visualized. No acute pulmonary process is identified. Bone windows through the chest demonstrate no osseous destr uctive lesion. Procedure Note [facility], Radiant Results Inft User - 2020 3:01 AM POSTMASTER Ordering physician: Rodrigo BREWSTER Indication: Chest pain, short of breath, elevated d-dimer Comparison: None Technique: CTA of the chest was performe d following the administration of intravenous contrast material. Three-dim ensional reformats were generated following completion of the exam. CT sca n was performed according to ALARA (as low as reasonably achievable) policy . Findings: The visualized thyroid gland i s within normal limits. The patient is status post median sternotomy. There is a cardiac anomaly, with an apparent single ventricle predominantly supplying the thoracic aorta. The pulmonary arteries appear to be supplied by the SVC. No filling defect is appreciated in the lower lobe pulmonary arteries to suggest pulmonary embolus. The upper lobe arteries are not well opacified due to study timing. There is mild diffuse groundglas s attenuation in the lungs bilaterally. No pathologically enlarged mediastinal or hilar lymph nodes are identified. No acute process is identified in the up per abdomen. There is splenomegaly, incompletely visualized. No acute pulmon mei process is identified. Bone windows through the chest demonstrate no osseous destructive lesion. IMPRESSION Impression: No CTA evidence for pulmonary embolus. Major cardiac anomaly with apparent sing le ventricle supplying the thoracic aorta. The pulmonary arteries appear to be supplied by the SVC. No filling defect is appreciated in the lower lobe pulmonary arteries; evaluation of the upper lobe pulmonary arteries is oliver ited by study timing. Correlation with patient history is recommended; the patient is status post remote median sternotomy. Mild diffuse groundglass attenuation in the lungs bilaterally, suggestive of mild pulmonary edema versus viral res piratory illness. RL: [id number] AFC: [id number] Performing Organization Address City/State/Zipcode Phone Number PACS/VR/DOSE D-DIMER (04/01/2020 1:00 AM POSTMASTER) [facility] D-DIMER 1.56 (H) <0.41 g/mL (FEU) [facility] Specimen Blood - VENOUS Narrative Performed At This test may be used in conjunction with a [facility] clinical pretest probability (PTP) assessment model to exclude venous thromboembolism (VTE) in patients suspected of deep venous thrombosis (DVT) and pulmonary embolism (PE) A D-Dimer value less than 0.50 g/ml (FEU) has a negative predicative value of 96 to 100% (95% CI)and 97 to 100% (95% CI) as an aid in the diagnosis of deep vein thrombosis (DVT) and pulmonary embolism when there is low or moderate pretest probability of PE or DVT. D-Dimer values are expressed in initial fibrinogen equivalent units (FEU)" The assay results should be used with other information, including the clinical context, in forming a diagnosis. Performing Organization Address [facility]/Zipcode Phone Number [facility] CLIA: [id number] [place] [address] POCT TEST (04/01/2020 12:45 AM POSTMASTER) [facility] POCT PREG negative On board controls acceptable positive with C Line POCT PREG LOT # [id number] POCT PREG TEST DATE 10-30-2021 Specimen Urine - URINE, CLEAN CATCH TROPONIN I (04/01/2020 12:27 AM POSTMASTER) Pathologist Sig nature TROPONIN I <0.012 <=0.034 ng/mL [facility] Specimen Blood - VENOUS Narrative Performed At Equal or Less than 0.034 ng/ml---Normal [facility] Note: Cardiac troponin begins to rise 3-4 hours after the onset of ischemia. Repeat in 4-6 hours if the sample was drawn within 3-4 hours of the onset of the symptom and found normal. Between 0.035 and 0.120 ng/mL--- Borderline. Questionable myocardial injury or necros is Note: Serial measurement may be necessary to confirm or exclude the diagnosis of myocardial injury or necrosis; Clinical correlation (symptoms, EKGs, imaging studies, and others) required; Repeat in 4-6 hours if clinically indicated. Equal or Higher than 0.121 ng/mL---Abnormal. Myocardial Injury or Necrosis Likely Biotin has been reported to cause a negative bias, interpret results relative to patient's use of biotin. Performing Organization Address City/State/Zipcode Phone Number [facility] CLIA: [id number] [place], [place] [id number] LABORATORY [address] URINALYSIS (04/01/2020 12:27 AM POSTMASTER) Pathologist Sig nature APPEARANCE Hazy (A) Clear [facility] COLOR Yellow Yellow [facility] PH 7.0 4.8 - 8.0 [facility] SP GRAVITY 1.008 1.003 - 1.030 [facility] GLU U QUAL Normal Normal [facility] BLOOD 3+ (A) Negative [facility] KETONES Negative Negative [facility] PROTEIN Negative Negative [facility] UROBILIN Normal Normal [facility] BILIRUBIN Negative Negative [facility] NITRITE Negative Negative [facility] LEUK YVAN Negative Negative [facility] RBC/HPF 8 (H) 0 - 3 HPF [facility] WBC/HPF 3 0 - 5 HPF [facility] BACTERIA Few (A) Negative [facility] SQ EPITH 16 HPF [facility] Specimen Urine - URINE, CLEAN CATCH Performing Organization Address City/State/Zipcode Phone Number [facility] CLIA: [id number] [place], [place] [id number] LABORATORY [address] CBC WITH DIFF (04/01/2020 12:27 AM POSTMASTER) Pathologist Sig nature WBC 4.05 (L) 4.30 - 11.10 [facility] 10*3/L [facility] RBC 3.79 (L) 3.93 - 5.25 [facility] 10*6/L [facility] HGB 11.4 (L) 11.6 - 15.0 [facility] g/dL [facility] HCT 33.8 (L) 35.7 - 45.2 % [facility] MCV 89.2 80.6 - 95.5 fL [facility] MCH 30.1 25.9 - 32.8 pg [facility] MCHC 33.7 31.6 - 35.1 [facility] g/dL [facility] RDW-SD 41.0 39.0 - 49.9 fL [facility] RDW-CV 12.6 12.0 - 15.5 % [facility] PLT 145 (L) 166 - 358 [facility] 10*3/L [facility] MPV 11.9 9.5 - 12.9 fL [facility] NRBC/100 WBC 0.0 0.0 - 10.0 /100 [facility] WBCs [facility] NRBC x10^3 <0.01 10*3/L [facility] GRAN MAT (NEUT) % 75.2 % [facility] IMM GRAN % 0.20 % [facility] LYMPH % 13.3 % [facility] MONO % 9.1 % [facility] EOS % 2.0 % [facility] BASO % 0.2 % [facility] GRAN MAT x10^3(ANC) 3.04 1.88 - 7.09 [facility] 10*3/uL HOSPITAL LAB[facility] IMM GRAN x10^3 <0.03 0.00 - 0.06 [facility] 10*3/uL [facility] LYMPH x10^3 0.54 (L) 1.32 - 3.29 [facility] 10*3/uL [facility] MONO x10^3 0.37 0.33 - 0.92 [facility] 10*3/uL HOSPITAL [facility]ORY EOS x10^3 0.08 0.03 - 0.39 [facility] 10*3/uL [facility] BASO x10^3 <0.03 0.01 - 0.07 [facility] 10*3/uL [facility] Specimen Blood - VENOUS Performing Organization Address City/State/Zipcode Phone Number [facility] CLIA: [id number] [place] [address] COMP. METABOLIC PANEL ([id number]) (04/01/2020 12:27 AM POSTMASTER) [facility] nature NA 137 135 - 145 [facility] mmol/L [facility] K 3.9 3.5 - 5.0 [facility] mmol/L [facility] CL 106 98 - 108 mmol/L [facility] CO2 TOTAL 22 (L) 23 - 31 mmol/L [facility] AGAP 9 2 - 16 [facility] BUN 10 7 - 23 mg/dL [facility] GLUCOSE 116 (H) 70 - 110 mg/dL [facility] CREATININE 0.59 0.50 - 1.04 [facility] mg/dL [facility] TOTAL BILI 0.7 0.1 - 1.1 mg/dL [facility] CALCIUM 9.1 8.6 - 10.6 [facility] mg/dL [facility] T PROTEIN 7.2 6.3 - 8.2 g/dL [facility] ALBUMIN 4.1 3.5 - 5.0 g/dL [facility] ALK PHOS 106 34 - 122 U/L [facility] ALTv 15 5 - 35 U/L [facility] AST(SGOT) 22 13 - 40 U/L [facility] eGFR Calculation 127.5 mL/min/1.73m2 [facility] ([facility] Bulgarian) eGFR Calculation 154.5 mL/min/1.73m2 [facility] Specimen Blood - VENOUS Narrative Performed At Association of Glomerular Filtration Rate (GFR) [facility] and Staging of Kidney Disease* + + +- + | GFR (mL/min/1.73 m2) | With Kidney Damage | Without Kidney Damage + + +- + | >90 | Stage one | Normal + + +- + | 60-89 | Stage two | Decreased GFR + + +- + | 30-59 | Stage three | Stage three + + +- + | 15-29 | Stage four | Stage four + + +- + | <15 (or dialysis) | Stage five | Stage five + + +- + *Each stage assumes the associated GFR level has been in effect for at least three months. Stages 1 to 5, with or without kidney disease, indicate chronic kidney disease. Notes: Determination of stages one and two (with eGFR >59mL/min/1.73 m2) requires estimation of kidney damage for at least three months as defined by structural or functional abnormalities of the kidney, manifested by either: Pathological abnormalities or Markers of kidney damage (including abnormalities in the composition of the blood or urine or abnormalities in imaging tests). Performing Organization Address City/State/Zipcode Phone Number [facility] CLIA: [id number] [place] [address] COVID-19 (ID NOW RAPID TESTING) (04/01/2020 12:27 AM POSTMASTER) SARS-CoV-2 Rapid ID Not Detected Not Detected [facility] Specimen Swab - NASOPHARYNGEAL SWAB Narrative Performed At ID NOW COVID-19 Assay is an isothermal nucleic [facility] acid amplification test intended for the qualitative detection of nucleic acid from SARS-CoV-2 viral RNA in nasopharyngeal (SOCIAL WORK MANAGER) specimens. It is used under Emergency Use Authorization (EUA) by FDA. The limit of detection (LOD) of the assay is 125 Genome Equivalents/mL. A positive result is indicative of the presence of SARS-CoV-2 RNA. Clinical correlation with patient history and other diagnostic information is necessary to determine patient infection status. A negative (Not Detected) result does not preclude SARS-CoV-2 infection. In patients with clinical symptoms and other tests that are consistent with SARS-CoV-2 infection, negative results should be treated as presumptive negative and a new specimen should be tested with alternative PCR molecular test. Invalid: Please collect a new specimen for repeat patient testing if clinically indicated. Performing Organization Address City/State/Zipcode Phone Number [facility] CLIA: [id number] [place] [address] Lactic Acid Whole Blood (04/01/2020 12:26 AM POSTMASTER) Pathologist Sig nature LACTIC ACID 1.27 0.50 - 2.20 mmol/L [facility] Specimen Blood - VENOUS Performing Organization Address [facility] Phone Number [facility] CLIA: [id number] [place] [address] documented in this encounter Visit Diagnoses Diagnosis Chest pain, unspecified type - Primary Pain of right lower extremity SOB (shortness of breath) Shortness of breath Cellulitis of right lower extremity Cellulitis and abscess of leg, except fo ot Acute bronchitis, unspecified organism Screening for viral disease Special screening examination for unspec ified viral disease documented in this encounter Administered Medications Medication Order MAR Action Action Date Dose Rate Site acetaminophen (TYLENOL) tablet Given 04/01/2020 12:27 AM POSTMASTER 1,0 00 mg 1,000 mg 1,000 mg, Oral, ONCE, 1 dose, 04/01/20 at 0030, ESTELLE iohexol (OMNIPAQUE 350 BULK-100 mL) Given 04/01/2020 1:49 AM CS T 100 mL injection 100 mL 100 mL, Intravenous, ONCE, 1 dose, 04/01/20 at 0200, Routine ketorolac (TORADOL) injection 30 mg Given 04/01/2020 12:58 AM POSTMASTER 30 mg 30 mg, Slow IV Push, ONCE, 1 dose, 04/01/20 at 0200, ESTELLE, delivery crew member approving Restricted medication: Rodrigo BREWSTER levoFLOXacin (LEVAQUIN) tablet 500 mg Given 04/01/2020 5:22 AM POSTMASTER 500 mg 500 mg, Oral, ONCE, 1 dose, 04/01/20 at 0630, ESTELLE, Reason for Anti-Infective: Documented Infection, Documented Infection Site: Skin / Soft Tissue, Duration of Therapy: Other (see Comments) documented in this encounter Additional Health Concerns Infection Onset Date Last Indicated Resolved Time COVID-19 Rule Out 04/01/2020 04/01/2020 04/01/2020 1: 12 AM POSTMASTER COVID-19 Rule Out 04/01/2020 04/01/2020 documented as of this encounter Insurance Payer Benefit Plan / Subscriber ID Effective Phone Address T ype Group Dates MEDICAID MEDICAID PENDING 2020-[address] [place] [address] documented as of this encounter
--- OUTSIDE RECORDS SUMMARY | 2020-04-08 19:13 | XMS REPORT | Summary of Care ---
:1995 Author Organization [facility] Address [address] [place] [address] Care Team Providers Name Role Phone Virgen Primary Care Provider Reason for Visit Reason Comments Wound right upper thigh Auth/Cert Status Reason Specialty Diagnoses / Referred By Referred To Procedures Contact Contact Emergency Medicine Adc Em ergency Dept [address] [phone] Fax: Encounter Details Date Type Department Care Team Description 04/04/2020 Emergency ADC-Emergency Depart ment Petra Yancey, EMNP [address] [facility] [id number] [place], [place] [id number] [place] [id number] Allergies Active Allergy Reactions Severity Noted Date Comments No Known Drug Allergies Unknown - See comments 016 documented as of this encounter (statuses as of 04/05/2020) Medications Medication Sig Dispensed Refills Start Date [...] as of this encounter (statuses as of 04/05/2020) Active Problems Problem Noted Date Epigastric pain 01/17/2016 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 documented as of this encounter Last Filed Vital Signs Vital Sign Reading Time Taken Comments Blood Pressure 107/73 04/04/2020 4:53 PM TACK PICKER Pulse 81 04/04/2020 4:53 PM TACK PICKER Temperature 37.2 C (99 F) 04/04/2020 4:53 PM TACK PICKER Respiratory Rate 16 04/04/2020 4:53 PM TACK PICKER Oxygen Saturation 95% 04/04/2020 4:53 PM TACK PICKER Inhaled Oxygen Concentration - - Weight 54.4 kg (120 lb) 04/04/2020 4:53 PM TACK PICKER Height 154.9 cm (5' 1") 04/04/2020 4:53 PM TACK PICKER Body Mass Index 22.67 04/04/2020 4:53 PM TACK PICKER documented in this encounter ED Notes Lima Goddard RN - 04/04/2020 4:51 PM CSTPatient states: "I came here on Thursday and they said it was irritated lymph node in my leg. They gave me abx, but they are making me sick and they are not working. I wanted to see if they could give mesomething different" Noted: Red round area to right upper thigh. Pmhx: hlhs, hypoplastic left heart syndrome. documented in this encounter Miscellaneous Notes ED Nurse Note - Bree Swann, ANA - 04/04/2020 6:45 PM CSTNo answer from eleonora; patient eloped- LWBS documented in this encounter Plan of Treatment [...]
--- OUTSIDE RECORDS SUMMARY | 2020-04-08 19:13 | XMS REPORT | Summary of Care ---
:1995 Author Organization [facility] Address [address] [place] [address] Care Team Providers Name Role Phone Virgen Primary Care Provider Encounter Details Date Type Department Care Team Description 04/02/2020 Letter (Out) [facility] Julieth Sprague, RN [address] [place] [phone] [place] [address] Allergies Active Allergy Reactions Severity Noted Date Comments No Known Drug Allergies Unknown - See comments 016 documented as of this encounter (statuses as of 04/02/2020) Medications Medication Sig Dispensed Refills Start Date [...] as of this encounter (statuses as of 04/02/2020) Active Problems Problem Noted Date Epigastric pain 01/17/2016 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 AI (aortic incompetence) 11/18/2012 Clubbing of digits 11/18/2012 Overview: ICD10 Diagnosis 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
[2020-04-08 20:01] LABS: Urine Blood 3+ (NEG); Urine Glucose NEGATIVE (NEG); Urine Protein TRACE (NEG); Urine Specific Gravity >1.030 (1.005-1.030); Urine pH 5.5 (5.0-7.0)
[2020-04-08 20:05] LABS: Absolute Lymphocytes (CBC) 0.8 K/uL (0.7-4.9); Basophils % 0.8 % (0-1.3); Hematocrit 37.7 % (36.0-45.0); Lymphocytes % 17.8 % (15.3-44.8); MPV 10.1 fL (7.6-11.3); RBC Red Blood Cell Count 4.36 M/uL (3.86-4.86)
[2020-04-08] MEDS ORDERED: MORPHINE 2 MG/ML SYR ONE (20:12)
[2020-04-08] MEDS ORDERED: NA CHLORIDE 0.9% 1,000 ML ONE (20:12)
[2020-04-08] MEDS ORDERED: ONDANSETRON 4 MG/2 ML VIAL ONE (20:12)
[2020-04-08 20:22] LABS: Albumin 3.8 g/dL (3.4-5.0); Bilirubin Direct 0.2 mg/dL (0-0.2); Bilirubin Total 0.5 mg/dL (0.2-1.0); Potassium 3.8 mmol/L (3.5-5.1); Protein, Total 8.1 g/dL (6.4-8.2)
--- NOTE | 2020-04-08 20:29 | RAD REPORT ---
EXAM DESCRIPTION: CT - Stone Protocol - 04/08/2020 8:18 pm CLINICAL HISTORY: Flank pain. Abd pain;Flank pain COMPARISON: Extremity Venous Uni [employer] dated 04/04/2020 TECHNIQUE: Axial images were obtained without oral or IV contrast. Lack of contrast limits solid org an and vascular assessment. The [id number] spans the entirety of the system partially obscuring uppermost abdomen and lung bases. Coronal reformatted images were obtained and reviewed. All CT scans are performed using dose optimization technique as appropriate and may include automated exposure control or mA/KV adjustment according to patient size. FINDINGS: The lower lung shanks are clear. Imaged portions of the liver and spleen show no suspicious findings on non-contrast imaging. The panc reas and adrenal glands are normal. 23 mm prominent right inguinal lymph node. No urinary tract stones or obstructive uropathy. No bowel obstruction, free air, free fluid or abscess. Moderate stool throughout the colon. Normal ap pendix noted. No significant bony abnormality. IMPRESSION: No urinary tract stones or obstructive uropathy. Mildly inflamed 23 mm right inguinal lymph node. Moderate stool throughout the colon.
--- NOTE | 2020-04-08 21:40 | ER ---
Nurse's Notes [facility] Name: Taniya Hudson Age: 24 yrs Sex: Female : 1995 Arrival Date: 04/08/2020 Time: 19:09 Bed 20 Private MD: Diagnosis: Lower abdominal pain, unspecified;Nonspecific lymphadenitis Presentation: 04/08 19:27 Ebola Screen: No symptoms or risks identified at this time. ea 19:27 Acuity: CHUCKIE 3 ea 19:27 Coronavirus screen: At this time, the client does not indicate any symptoms associated ea with coronavirus-19. 19:27 Method Of Arrival: Ambulatory ea 19:34 Chief complaint: Patient states: Reports she has been having burning with urination, ea bloody urine, bloody stools and lower abdominal pain. Initial Sepsis Screen: Does the patient meet any 2 criteria? No. Patient's initial sepsis screen is negative. Does the patient have a suspected source of infection? No. Patient's initial sepsis screen is negative. Risk Assessment: Do you want to hurt yourself or someone else? Patient reports no desire to harm self or others. Onset of symptoms was April 08, 2020. Triage Assessment: 19:33 General: Appears in no apparent distress. Behavior is appropriate for age. Pain: ea Complains of pain in right lower quadrant and left lower quadrant. : Reports vaginal bleeding that is. FLIGHT DISPATCHER: 19:36 LMP N/A - Depo-provera ea Historical: - Home Meds: 19:28 prazosin 1 mg Oral cap 1 cap once at bedtime [Active]; ea - PMHx: 19:28 TBI; stroke; Seizures; PTSD; hypoplastic left heart syndrome; ea - PSHx: 19:28 PICC/PEG placement and taken out; cardiac caths x 4; left pulmonary artery stent; ea Adenoids; Tonsillectomy; - Immunization history:: Adult Immunizations up to date. - Social history:: Smoking status: Patient denies any tobacco usage or history of. Screenin:26 Abuse screen: Denies threats or abuse. Nutritional screening: No deficits noted. ea Tuberculosis screening: No symptoms or risk factors identified. Fall Risk None identified. Assessment: 19:39 Reassessment: ECP at bedside. zb 19:40 General: Appears in no apparent distress. comfortable, Behavior is calm, cooperative, zb appropriate for age. Pain: Complains of pain in suprapubic area and abdomen and left lower quadrant and right lower quadrant Pain does not radiate. Pain currently is 5 out of 10 on a pain scale. Quality of pain is described as aching. Neuro: Level of Consciousness is awake, alert, obeys commands, Oriented to person, place, time, situation. Cardiovascular: Capillary refill < 3 seconds in bilateral fingers Patient's skin is warm and dry. Respiratory: Airway is patent Respiratory effort is even, unlabored, Respiratory pattern is regular, symmetrical. GI: Abdomen is flat, non-distended, Bowel sounds present X 4 quads. Abdomen is tender to palpation in right lower quadrant. : Urine is clear, Reports vaginal bleeding that is bright red, moderate flow, since 3-4 days. EENT: No signs and/or symptoms were reported regarding the EENT system. Derm: Skin is intact, is healthy with good turgor, Skin is dry, Skin is normal. Musculoskeletal: Circulation, motion, and sensation intact. Capillary refill < 3 seconds, in bilateral fingers. Range of motion: intact in all extremities. 20:59 Reassessment: Patient appears in no apparent distress at this time. Patient and/or zb family updated on plan of care and expected duration. Pain level reassessed. Patient is alert, oriented x 3, equal unlabored respirations, skin warm/dry/pink. no changes at this time patient awaiting results. Patient denies pain at this time. Patient states feeling better. Patient states symptoms have improved. 22:15 Reassessment: Patient appears in no apparent distress at this time. Patient is alert, lp1 oriented x 3, equal unlabored respirations, skin warm/dry/pink. Patient demonstrates understanding of discharge instructions. Vital Signs: 19:34 BP 125 / 70; Pulse 69; Resp 18; Temp 98; Pulse Ox 95% ; Weight 54.43 kg; Height 5 ft. ea (152.40 cm); 19:40 BP 108 / 58; Pulse 63; Resp 16; Pulse Ox 100% on R/A; zb 20:59 BP 125 / 70; Pulse 60; Resp 16; Pulse Ox 98% on R/A; zb 22:15 BP 109 / 50; Pulse 64; Resp 16; Pulse Ox 98% on R/A; lp1 19:34 Body Mass Index 23.44 (54.43 kg, 152.40 cm) ea ED Course: 19:09 Patient arrived in ED. bp1 19:21 Vishal Singletary MD is Attending Physician. 7 19:26 Arm band placed on right wrist. Patient placed in an exam room, on a stretcher, on ea pulse oximetry. 19:26 Patient has correct armband on for positive identification. Placed in gown. Bed in low ea position. Call light in reach. 19:27 Triage completed. ea 19:37 Haritha Palma, RN is Primary Nurse. zb 20:08 Inserted saline lock: 20 gauge in left antecubital area, using aseptic technique. Blood zb collected. 20:18 CT Stone Protocol In Process Unspecified. EDMS 22:15 No provider procedures requiring assistance completed. IV discontinued, No lp1 redness/swelling at site. Pressure dressing applied. Administered Medications: 20:06 Drug: morphine 2 mg Route: IVP; Site: left antecubital; zb 20:06 Drug: Zofran (Ondansetron) 4 mg Route: IVP; Site: left antecubital; zb 20:07 Drug: NS 0.9% 1000 ml Route: IV; Rate: 1000 ml; Site: left antecubital; zb Outcome: 21:39 Discharge ordered by . 7 22:15 Discharged to home ambulatory. lp1 22:15 Condition: good 22:15 Discharge instructions given to patient, Instructed on discharge instructions, follow up and referral plans. medication usage, Demonstrated understanding of instructions, follow-up care, medications, Prescriptions given X 1. 22:19 Patient left the ED. lp1 Signatures: Dispatcher [employer] EDMS Cece Obrien RN RN lp1 Veronica Bunch RN RN Henna Amar[facility] Vishal Singletary MD MD Haritha Zamora RN RN zb Corrections: (The following items were deleted from the chart) 21:03 20:59 Reassessment: Patient appears in no apparent distress at this time. Patient zb and/or family updated on plan of care and expected duration. Pain level reassessed. Patient is alert, oriented x 3, equal unlabored respirations, skin warm/dry/pink. no changes at this time patient awaiting results. zb
--- NOTE | 2020-04-08 21:40 | EDPHYS ---
Physician Documentation [facility] Name: Taniya Hudson Age: 24 yrs Sex: Female : 1995 Arrival Date: 04/08/2020 Time: 19:09 Bed 20 Private MD: ED Physician Vishal Singletary HPI: 04/08 19:51 This 24 yrs old Female presents to ER via Ambulatory with complaints of mh7 Vaginal Bleeding, Abdominal Pain. 19:52 The patient presents with abdominal pain in the lower abdomen. Onset: The mh7 symptoms/episode began/occurred today. The symptoms radiate to both flanks. Associated signs and symptoms: Pertinent positives: hematuria, 3-4 days, Pertinent negatives: nausea, vomiting, and diarrhea, anorexia, blood in stools, chest pain, constipation, diarrhea, dysuria, fever, headache, nausea, palpitations, shortness of breath, vaginal discharge, vomiting, vomiting blood. The symptoms are described as intermittent, vague, waxing/waning. Modifying factors: The symptoms are alleviated by nothing, the symptoms are aggravated by movement, touching the area. Severity of pain: At its worst the pain was moderate today, in the emergency department the pain has improved moderately. 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 - Social history:: Smoking status: Patient denies any tobacco usage or history of. ROS: 19:52 Constitutional: Negative for fever, chills, and weight loss, Eyes: Negative for injury, mh7 pain, redness, and discharge, ENT: Negative for injury, pain, and discharge, Neck: Negative for injury, pain, and swelling, Cardiovascular: Negative for chest pain, palpitations, and edema, Respiratory: Negative for shortness of breath, cough, wheezing, and pleuritic chest pain, MS/Extremity: Negative for injury and deformity, Skin: Negative for injury, rash, and discoloration, Neuro: Negative for headache, weakness, numbness, tingling, and seizure, Psych: Negative for depression, anxiety, suicide ideation, homicidal ideation, and hallucinations, Allergy/Immunology: Negative for hives, rash, and allergies, Endocrine: Negative for neck swelling, polydipsia, polyuria, polyphagia, and marked weight changes, Hematologic/Lymphatic: Negative for swollen nodes, abnormal bleeding, and unusual bruising. Exam: 19:52 Constitutional: This is a well developed, well nourished patient who is awake, alert, mh7 and in no acute distress. Head/Face: Normocephalic, atraumatic. Eyes: Pupils equal round and reactive to light, extra-ocular motions intact. Lids and lashes normal. Conjunctiva and sclera are non-icteric and not injected. Cornea within normal limits. Periorbital areas with no swelling, redness, or edema. Neck: Trachea midline, no thyromegaly or masses palpated, and no cervical lymphadenopathy. Supple, full range of motion without nuchal rigidity, or vertebral point tenderness. No Meningismus. Chest/axilla: Normal chest wall appearance and motion. Nontender with no deformity. No lesions are appreciated. Cardiovascular: Regular rate and rhythm with a normal S1 and S2. No gallops, murmurs, or rubs. Normal PMI, no JVD. No pulse deficits. Respiratory: Lungs have equal breath sounds bilaterally, clear to auscultation and percussion. No rales, rhonchi or wheezes noted. No increased work of breathing, no retractions or nasal flaring. 19:52 Skin: Warm, dry with normal turgor. Normal color with no rashes, no lesions, and no evidence of cellulitis. MS/ Extremity: Pulses equal, no cyanosis. Neurovascular intact. Full, normal range of motion. Neuro: Awake and alert, GCS 15, oriented to person, place, time, and situation. Cranial nerves II-XII grossly intact. Motor strength 5/5 in all extremities. Sensory grossly intact. Cerebellar exam normal. Normal gait. 19:52 Abdomen/GI: Inspection: abdomen appears normal, Bowel sounds: normal, in all quadrants, Palpation: mild abdominal tenderness, in the suprapubic area, right lower quadrant and left lower quadrant, Rectal exam: the exam is deferred, because of patient request, Indicators: McBurney's point is not tender, Fried's sign is negative, Rovsing's sign is negative, Obturator sign is negative, Psoas sign is negative, Liver: no appreciated palpable abnormalities, Hernia: not appreciated. 19:52 Back: ROM is normal, normal spinal alignment noted, CVA tenderness, that is mild, is noted bilaterally, muscle spasm, is not present. 21:37 : CVA tenderness, that is mild, Pelvic Exam: The exam is refused by the [facility] patient/guardian. The risks and consequences are understood by the patient, Bladder: tenderness, that is mild. Vital Signs: 19:34 BP 125 / 70; Pulse 69; Resp 18; Temp 98; Pulse Ox 95% ; Weight 54.43 kg; Height 5 ft. ea (152.40 cm); 19:40 BP 108 / 58; Pulse 63; Resp 16; Pulse Ox 100% on R/A; zb 20:59 BP 125 / 70; Pulse 60; Resp 16; Pulse Ox 98% on R/A; zb 22:15 BP 109 / 50; Pulse 64; Resp 16; Pulse Ox 98% on R/A; lp1 19:34 Body Mass Index 23.44 (54.43 kg, 152.40 cm) ea MDM: 21:37 Differential diagnosis: appendicitis, bowel obstruction, diverticulitis, Ectopic mh7 , non-specific abd pain, Pyelonephritis, Ureterolithiasis, urinary tract infection. Data reviewed: vital signs, nurses notes, old medical records, lab test result(s), CBC, electrolytes, urinalysis, radiologic studies, CT scan. Data interpreted: Pulse oximetry: on room air is 98 %. Interpretation: normal. Counseling: I had a detailed discussion with the patient and/or guardian regarding: the historical points, exam findings, and any diagnostic results supporting the discharge/admit diagnosis, lab results, radiology results, the need for outpatient follow up, to return to the emergency department if symptoms worsen or persist or if there are any questions or concerns that arise at home. Response to treatment: the patient's symptoms have resolved after treatment, the patient's blood pressure is in an acceptable range, mental status has returned to baseline, the patient no longer shows bradycardia, the patient is not short of breath, the patient is not tachycardic, the patient's pain is gone, the patient's temperature has normalized. 21:39 Patient medically screened. [facility] 04/08 19:41 Order name: Basic Metabolic Panel [facility] 04/08 19:41 Order name: CBC with Diff [facility] 04/08 19:41 Order name: Hepatic Function [facility] 04/08 19:41 Order name: Lipase [facility] 04/08 19:42 Order name: Basic Metabolic Panel; Complete Time: 20:29 [facility] 04/08 19:42 Order name: CBC with Automated Diff; Complete Time: 20:15 [facility] 04/08 19:41 Order name: IV Saline Lock; Complete Time: 20:07 [facility] 04/08 19:42 Order name: Liver (Hepatic) Function; Complete Time: 20:29 [facility] 04/08 19:42 Order name: Lipase; Complete Time: 20:29 [facility] 04/08 19:51 Order name: CT Stone Protocol; Complete Time: 20:29 [facility] 04/08 19:52 Order name: Urine Dipstick--Ancillary (enter results); Complete Time: 20:15 [facility] 04/08 19:41 Order name: Labs collected and sent; Complete Time: 20:08 [facility] 04/08 19:41 Order name: Urine Dipstick-Ancillary (obtain specimen); Complete Time: 19:53 [facility] 04/08 19:41 Order name: Urine Test (obtain specimen); Complete Time: 19:53 [facility] Administered Medications: 20:06 Drug: morphine 2 mg Route: IVP; Site: left antecubital; zb 20:06 Drug: Zofran (Ondansetron) 4 mg Route: IVP; Site: left antecubital; zb 20:07 Drug: NS 0.9% 1000 ml Route: IV; Rate: 1000 ml; Site: left antecubital; zb Disposition: 04/08/20 21:39 Discharged to Home. Impression: Lower abdominal pain, unspecified, Nonspecific lymphadenitis. - Condition is Stable. - Discharge Instructions: Abdominal Pain, Adult, Paar-vx-Xvic, Lymphadenopathy. - Prescriptions for Augmentin 500- 125 mg Oral Tablet - take 1 tablet by ORAL route every 8 hours for 10 days; 30 tablet. - Medication Reconciliation Form, Thank You Letter, Antibiotic Education, Prescription Opioid Use form. - Follow up: Private Physician; When: 1 - 2 days; Reason: Worsening of condition, Recheck today's complaints, Continuance of care, Re-evaluation by your physician. - Problem is new. - Symptoms have improved. Signatures: Dispatcher [employer] EDMS Cece Obrien RN RN lp1 Veronica Bunch RN Vishal Decker ea, MD MD 7 Haritha Palma RN RN zb Corrections: (The following items were deleted from the chart) 22:19 21:39 04/08/2020 21:39 Discharged to Home. Impression: Lower abdominal pain, lp1 unspecified; Nonspecific lymphadenitis. Condition is Stable. Forms are Medication Reconciliation Form, Thank You Letter, Antibiotic Education, Prescription Opioid Use. Follow up: Private Physician; When: 1 - 2 days; Reason: Worsening of condition, Recheck today's complaints, Continuance of care, Re-evaluation by your physician. Problem is new. Symptoms have improved. mh7
[2020-04-08 22:24] VITALS: TEMP 98
[2020-04-08 22:26] VITALS: BP 125/70; O2SAT 98
== END 2020-04-08 22:19 | disposition home or self-care (01) ==
LOC: ER 19:07
DX: I88.0 Nonspecific mesenteric lymphadenitis (principal); Z95.818 Presence of other cardiac implants and grafts
CPT/HCPCS: 36415; 74176; 76377; 80048; 80076; 81003; 83690; 85025; 96374; 96375; 99284; J2270; J2405; J7030

== ENCOUNTER 2020-09-14 00:37 | Emergency (ER) | payer SELFPAY ==
--- OUTSIDE RECORDS SUMMARY | 2020-09-14 00:42 | XMS REPORT | Continuity of Care Document ---
:1995 Author Organization [facility] t Address [address] [place] [address] Care Team Providers Name Role Phone Thomas [...] Start Date Stop Date Source Never Smoker [place] [facility] Medications Ordered [...] every day route. route. by oral route. medroxyprog medroxyprog No medroxypro [place] esterone esterone gesterone da 150 mg/mL 150 mg/mL 150 mg/mL [facility] intramuscul intramuscul intramuscu al ar syringe ar syringe lar Hea lth INJECT 1 ML INJECT 1 ML syringe Outre[facility] EVERY 3 EVERY 3 INJECT 1 h MONTHS BY MONTHS BY ML EVERY 3 Program INTRAMUSCUL INTRAMUSCUL MONTHS BY AR ROUTE. AR ROUTE. INTRAMUSCU LAR ROUTE. prazosin 1 prazosin 1 No prazosin 1 [place] mg capsule mg capsule mg capsule da TAKE 1 TAKE 1 TAKE 1 [facility] CAPSULE BY CAPSULE BY CAPSULE BY al MOUTH ONCE MOUTH ONCE MOUTH ONCE Health DAILY AT DAILY AT DAILY AT Out reac BEDTIME BEDTIME BEDTIME h Program sertraline sertraline No sertraline [place] 100 mg 100 mg 100 mg da tablet TAKE tablet TAKE tablet [facility] 1 TABLET BY 1 TABLET BY TAKE 1 al MOUTH ONCE MOUTH ONCE TABLET BY Health DAILY WITH DAILY WITH MOUTH ONCE Outre[facility] MEALS FOR MEALS FOR DAILY WITH h 30 DAYS 30 DAYS MEALS FOR Prog tangela 30 DAYS Immunizations Ordered Immunization Filled Immunization Date Status Commen ts Source Name Name influenza, influenza, 2019-11-30 Completed [place] injectable, injectable, 11:22:00 [facility] alth quadrivalent, quadrivalent, Outreach Program preservative free preservative free Tdap Tdap 2019-11-30 Completed [place] 11:21:00 [facility] Out[facility] Progr am Vital Signs Vital Name Observation Time Observation Value Comments Source BP Diastolic 2020-09-12 00:00:00 55 mm[Hg] [facility] Height 2020-09-12 00:00:00 61 [in_i] [facility] BMI (Body Mass 2020-09-12 00:00:00 24.6 kg/m2 [place] 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 [facility] Index) Health Outreach Program BP Systolic 2020-09-12 00:00:00 109 mm[Hg] [place] [facility] Body Weight 2020-09-12 00:00:00 2083 [oz_av] [place] [facility] BP Diastolic 2020-02-01 00:00:00 62 mm[Hg] [place] [facility] Height 2020-02-01 00:00:00 61 [in_i] [place] [facility] BMI (Body Mass 2020-02-01 00:00:00 22.9 kg/m2 [place] 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 [facility] Index) [facility] Outreach [facility] BP Systolic 2020-02-01 00:00:00 106 mm[Hg] [place] [facility] Body Weight 2020-02-01 00:00:00 1942 [oz_av] [place] [facility] BP Diastolic 2020-01-04 00:00:00 64 mm[Hg] [place] [facility] Height 2020-01-04 00:00:00 61 [in_i] [place] [facility] BMI (Body Mass 2020-01-04 00:00:00 22.5 kg/m2 [place] 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 [facility] Index) [facility] Outreach [facility] BP Systolic 2020-01-04 00:00:00 112 mm[Hg] [place] [facility] Body Weight 2020-01-04 00:00:00 1905 [oz_av] [place] [facility] BP Diastolic 2019-12-07 00:00:00 61 mm[Hg] [place] [facility] Height 2019-12-07 00:00:00 61 [in_i] [place] [facility] BMI (Body Mass 2019-12-07 00:00:00 23.3 kg/m2 [place] 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 [facility] Index) [facility] Outreach [facility] BP Systolic 2019-12-07 00:00:00 122 mm[Hg] [place] [facility] Body Weight 2019-12-07 00:00:00 1974 [oz_av] [place] [facility] BP Diastolic 2019-11-30 00:00:00 68 mm[Hg] [place] [facility] Height 2019-11-30 00:00:00 61 [in_i] [place] [facility] BMI (Body Mass 2019-11-30 00:00:00 22.7 kg/m2 [place] 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 [facility] Index) [facility] Outreach Program BP Systolic 2019-11-30 00:00:00 114 mm[Hg] [place] [facility] Body Weight 2019-11-30 00:00:00 1923 [oz_av] [place] [facility] Procedures Procedure Date / Time Performed Performing Clinician Sourc e US, transvaginal 2020-09-12 00:00:00 [place] [facility] Procedure on Heart [place] [facility] Plan of Care Planned Activity Planned Date Details Comments Source Future Appointment 2020-10-12 11:00:00 Wendy Cotagochristopher [facility] [id number] [address] [facility] [address] , [place] [address] Encounters Start End Encounter Admission Attending Care Care Encounter Source Date/Time Date/Time Type Type Clinicians Facility Department ID 2020-09-12 2020-09-12 E[place] - [id number] M [facility] 00:00:00 00:00:00 JEFE Pacheco: Karen cat [id number] [place] [facility] op [address] [facility] [address], [facility] Program [address] , Ph. 2020-08-29 2020-08-29 Long [place] - [id number] M at[place] 00:00:00 00:00:00 Karen Day SAFETY INSPECTOR: [id number] [facility] Epi scop [address] [facility] [address], [facility] Program [address] , Ph. 2020-08-01 2020-08-01 Long [place] - [id number] M at[place] 00:00:00 00:00:00 Karen Day SAFETY INSPECTOR: [id number] [facility] Epis type copyist Ramos [facility] [address] h , Ph. Program (979) 2020 2020 Long [place] - [id number] M at[place]or 00:00:00 00:00:00 Karen Day SAFETY INSPECTOR: [id number] [facility] Epi scop [address] [facility] [address], [facility] [place] Program [address] , Ph. 2020-05-24 2020-05-24 Long [place] - [id number] M at[place] 00:00:00 00:00:00 Karen Day SAFETY INSPECTOR: [id number] [facility] Epi scop [address] [facility] [address], [facility] [place] Program [address] , Ph. 2020-05-04 2020-05-04 Stefanyossi [place] - [id number] [place] 00:00:00 00:00:00 MD Robert: Karen cat [id number] [place] [facility] op [address] [facility] [address] , [facility] [place] Program [address] , Ph. 2020-04-04 2020-04-04 Emergency [facility] [id number] 16:55:00 18:45:00 Petra Reed [id number] [place] [id number] [place] [id number] 084 2020-04-02 2020-04-02 Letter OG Spr[place] [id number] 00:00:00 00:00:00 (Out) Julieth ELY [id number] [facility] [id number] [id number] 2020-03-31 2020-04-01 Emergency Rodrigo Solis [facility] [id number] 23:53:00 05:34:00 [place] [id number] [place] [id number] [place] [id number] 2020-03-07 2020-03-07 Long [place] - [id number] M at[place]or 00:00:00 00:00:00 Karen Day SAFETY INSPECTOR: [id number] [facility] Epi scop [address] [facility] [address], [facility] [place] Program [address] , Ph. 2020-02-29 2020-02-29 Long [place] - [id number] M at[place]or 00:00:00 00:00:00 Karen Day SAFETY INSPECTOR: [id number] [facility] Epi scop [address] [facility] [address], [facility] [place] Program [address] , Ph. 2020-02-22 2020-02-22 Long [place] - [id number] M at[place]or 00:00:00 00:00:00 Karen Day SAFETY INSPECTOR: [id number] [facility] Epi scop [address] [facility] [address], [facility] [place] Program [address] , Ph. 2020-02-08 2020-02-08 Long [place] - [id number] M at[place]or 00:00:00 00:00:00 Karen Day SAFETY INSPECTOR: [id number] [facility] Epi scop [address] [facility] [address], [facility] [place] Program [address] , Ph. 2020-02-05 2020-02-05 DEVON Walker [id number] 00:00:00 00:00:[address] [facility] [id number] [facility] [id number] [place] [id number] Medical [facility] Office Building 2020-02-01 2020-02-01 Ely [place] - [id number] atagor 00:00:00 00:00:00 JEFE Pacheco: Karen cat [id number] [place] [facility] Ep[facility] op [address] [facility] [address], [place] [facility] [place] [facility] [address] , Ph. 2020-01-31 2020-01-31 Refill Victoria [facility] [id number] 00:00:00 00:00:00 [facility] [id number] [place] [id number] [place] [id number] Medical 149 Office Building 2020-01-19 2020-01-19 Refill Victoria [facility] [id number] 00:00:00 00:00:00 [facility] [id number] [place] [id number] [place] [id number] Medical 149 Office Building 2020-01-16 2020-01-16 Cecilia Hein [facility] [id number] 00:00:00 00:00:00 Management M Health [id number] Clear [id number] [place] [id number] Medical 149 Office Building 2020-01-13 2020-01-13 Cecilia Hein [facility] [id number] 00:00:00 00:00:00 Management M Health [id number] Clear [id number] [place] [id number] Medical 149 Office Building 2020-01-11 2020-01-11 Long AZHERMELINDA [place] - [id number] M atagor 00:00:00 00:00:00 Karen Day LPC: [id number] [facility] Epi scop [address] [facility] [address], [facility] [place] [facility] [address] , Ph. 2020-01-10 2020-01-10 Juan Kessler [facility] [id number] 00:00:00 00:00:00 Management [facility] [id number] Dada Last [id number] [place] [address] [id number] Medical [facility] Office Building 2020-01-04 2020-01-04 Ely [place] - [id number] M atagor 00:00:00 00:00:00 JEFE Pacheco: Karen cat [id number] [place] [facility] op [address] [facility] [address], [facility] [place] Program [address] , Ph. 2019-12-28 2019-12-28 Long [facility] [place] - [id number] M atagor 00:00:00 00:00:00 Karen Day SAFETY INSPECTOR: [id number] [facility] Epi scop [address] [facility] [address], [facility] [place] Program [address] , Ph. 2019-12-23 2019-12-23 Stefanyossi [place] - [id number] [place] 00:00:00 00:00:00 MD Robert: Karen cat [id number] [place] [facility] op [address] [facility] [address], [facility] [place] Program [address] , Ph. 2019-12-21 2019-12-21 Long MEHERMELINDA [place] - [id number] M atagor 00:00:00 00:00:00 Karen Day SAFETY INSPECTOR: [id number] [facility] Epi scop [address] [facility] [address], [facility] [place] Program [address] , Ph. 2019-12-14 2019-12-14 Long AZHERMELIN[place] - [id number] M at[place]or 00:00:00 00:00:00 Karen Day SAFETY INSPECTOR: [id number] [facility] Epi scop [address] [facility] [address], [facility] [place] Program [address] , Ph. 2019-12-07 2019-12-07 Long [place] - [id number] M at[place]or 00:00:00 00:00:00 Karen Day SAFETY INSPECTOR: [id number] [facility] Epi scop [address] [facility] [address], [facility] [place] Program [address] , Ph. 2019-11-30 2019-11-30 Elyantonio [place] - [id number] M at[place]or 00:00:00 00:00:00 JEFE Pacheco: Karen cat [id number] [place] [facility] Ep[facility] op [address] [facility] [address], [facility] [place] Program [address] , Ph. 2019-11-23 2019-11-23 Long [place] - [id number] M atagor 00:00:00 00:00:00 Karen Day SAFETY INSPECTOR: [id number] [facility] Epi scop [address] [facility] [address], [facility] [place] Program [address] , Ph. 2019-11-16 2019-11-16 Long [place] - [id number] M at[place]or 00:00:00 00:00:00 Karen Day SAFETY INSPECTOR: [id number] [facility] Epi scop [address] [facility] [address], [facility] [place] Program [address] , Ph. 2019-11-02 2019-11-02 Long [place] - [id number] M at[place]or 00:00:00 00:00:00 Karen Day SAFETY INSPECTOR: [id number] [facility] Epi scop [address] [facility] [address], [facility] [place] Program [address] , Ph. 2019-10-26 2019-10-26 Long [place] - [id number] M at[place]or 00:00:00 00:00:00 Karen Day SAFETY INSPECTOR: [id number] [facility] Epi scop [address] [facility] [address], [place] Program [address] , Ph. Results Test Description Test Time [...] (test code = epithelial cells) 5-10 0-10 [facility] - Serum or Plasma 2019-12-01 [...] = 1.61 ratio <3.22 risk ratio LDL/HDL) [facility] Auto Differential panel - Blood 2019-12-01 [...] code = 156 K/uL 130-400 platelet count) [facility]Com[facility] 2000 panel - Serum or [id number] 00:00:00 Test Item Value Reference Range Interpretation [...] (test code = ALT) 26 U/L 5-40 [facility] CenterThyrotropin [Units/volume] in Serum or [id number] 00:00:00 Test Item Value Reference Range Interpretation Comments TSH, third generation (test code 1.810 uIU/mL 0.400-4.100 = TSH, third generation) [facility] CenterReagin Ab [Presence] in Serum by RPR 2019-12-01 00:00:00 Test Item Value Reference Range Interpretation Comments RPR result (test code = RPR non-reactive non-reactive result) RPR titer (test code = RPR not indic. not indic. titer) [facility] CenterPT and aPTT panel - Platelet poor plasma by Coagulation [id number] 00:00:00 Test Item Value Reference Range Interpretation Comments prothrombin time (PT) (test code 13.9 seconds 12.5-14.7 = prothrombin time (PT)) INR (test code = INR) 1.0 see below PTT (test code = PTT) 30.1 seconds 25.2-40.0 [facility]HIV 1+2 Ab [Presence] in Serum or Plasma by [id number] 00:00:00 Test Item Value Reference Range Interpretation Comments HIV 1/2 4TH gen, rflx conf (test non-reactive non-reactive code = HIV 1/2 4TH gen, rflx conf) [facility] CenterAc[facility] 2000 panel - Serum 2019-12-01 00:00:00 [...] (note) (test code = interpretation hepatitis C:) [facility] CenterChlamydia trachomatis+Neisseria gonorrhoeae DNA [Presence] in Urine by ANSLEY with probe [id number] 00:00:00 Test Item Value Reference Range Interpretation Comments gonorrhea, tma (test code = negative negative gonorrhea, tma) chlamydia, tma (test code = negative negative chlamydia, tma) [facility] CenterUrinalysis complete W Reflex Culture panel - [id number] 00:00:00 Test Item Value Reference Range Interpretation [...] (test code = 5-10 0-10 epithelial cells) [facility] panel - Serum or Plasma 2019-12-01 [...] = 1.61 ratio <3.22 risk ratio LDL/HDL) [facility] CenterCBC W Auto Differential panel - Blood 2019-12-01 [...] code = 156 K/uL 130-400 platelet count) [facility] CenterComprehensive [facility] 2000 panel - Serum or [id number] 00:00:00 Test Item Value Reference Range Interpretation [...] (test code = ALT) 26 U/L 5-40 [facility] CenterThyrotropin [Units/volume] in Serum or [id number] 00:00:00 Test Item Value Reference Range Interpretation Comments TSH, third generation (test code 1.810 uIU/mL 0.400-4.100 = TSH, third generation) [facility] CenterReagin Ab [Presence] in Serum by RPR 2019-12-01 00:00:00 Test Item Value Reference Range Interpretation Comments RPR result (test code = RPR non-reactive non-reactive result) RPR titer (test code = RPR not indic. not indic. titer) [facility] CenterPT and aPTT panel - Platelet poor plasma by Coagulation [id number] 00:00:00 Test Item Value Reference Range Interpretation Comments prothrombin time (PT) (test code 13.9 seconds 12.5-14.7 = prothrombin time (PT)) INR (test code = INR) 1.0 see below PTT (test code = PTT) 30.1 seconds 25.2-40.0 [facility] CenterHIV 1+2 Ab [Presence] in Serum or Plasma by [id number] 00:00:00 Test Item Value Reference Range Interpretation Comments HIV 1/2 4TH gen, rflx conf (test non-reactive non-reactive code = HIV 1/2 4TH gen, rflx conf) [facility] CenterAc[facility] 2000 panel - Serum 2019-12-01 00:00:00 [...] (note) (test code = interpretation hepatitis C:) [facility] CenterChlamydia trachomatis+Neisseria gonorrhoeae DNA [Presence] in Urine by ANSLEY with probe [id number] 00:00:00 Test Item Value Reference Range Interpretation Comments gonorrhea, tma (test code = negative negative gonorrhea, tma) chlamydia, tma (test code = negative negative chlamydia, tma) [facility] CenterUrinalysis complete W Reflex Culture panel - [id number] 00:00:00 Test Item Value Reference Range Interpretation [...] (test code = 5-10 0-10 epithelial cells) [facility] CenterLip[facility] 1996 panel - Serum or Plasma 2019-12-01 [...] = 1.61 ratio <3.22 risk ratio LDL/HDL) [facility]CBC W Auto Differential panel - Blood 2019-12-01 [...] code = 156 K/uL 130-400 platelet count) [facility] CenterComprehensive metabolic 2000 panel - Serum or [id number] 00:00:00 Test Item Value Reference Range Interpretation [...] (test code = ALT) 26 U/L 5-40 [facility] CenterThyrotropin [Units/volume] in Serum or [id number] 00:00:00 Test Item Value Reference Range Interpretation Comments TSH, third generation (test code 1.810 uIU/mL 0.400-4.100 = TSH, third generation) [facility] CenterReagin Ab [Presence] in Serum by RPR 2019-12-01 00:00:00 Test Item Value Reference Range Interpretation Comments RPR result (test code = RPR non-reactive non-reactive result) RPR titer (test code = RPR not indic. not indic. titer) [facility] CenterPT and aPTT panel - Platelet poor plasma by Coagulation [id number] 00:00:00 Test Item Value Reference Range Interpretation Comments prothrombin time (PT) (test code 13.9 seconds 12.5-14.7 = prothrombin time (PT)) INR (test code = INR) 1.0 see below PTT (test code = PTT) 30.1 seconds 25.2-40.0 [facility] CenterHIV 1+2 Ab [Presence] in Serum or Plasma by [id number] 00:00:00 Test Item Value Reference Range Interpretation Comments HIV 1/2 4TH gen, rflx conf (test non-reactive non-reactive code = HIV 1/2 4TH gen, rflx conf) [facility] CenterAc[facility] 2000 panel - Serum 2019-12-01 00:00:00 [...] (note) (test code = interpretation hepatitis C:) [facility] CenterChlamydia trachomatis+Neisseria gonorrhoeae DNA [Presence] in Urine by ANSLEY with probe [id number] 00:00:00 Test Item Value Reference Range Interpretation Comments gonorrhea, tma (test code = negative negative gonorrhea, tma) chlamydia, tma (test code = negative negative chlamydia, tma) [facility] CenterUrinalysis complete W Reflex Culture panel - [id number] 00:00:00 Test Item Value Reference Range Interpretation [...] (test code = 5-10 0-10 epithelial cells) [facility] CenterLipid 1996 panel - Serum or Plasma 2019-12-01 [...] = 1.61 ratio <3.22 risk ratio LDL/HDL) [facility]CBC W Auto Differential panel - Blood 2019-12-01 [...] code = 156 K/uL 130-400 platelet count) [facility] CenterComprehensive metabolic 2000 panel - Serum or [id number] 00:00:00 Test Item Value Reference Range Interpretation [...] (test code = ALT) 26 U/L 5-40 [facility] CenterThyrotropin [Units/volume] in Serum or [id number] 00:00:00 Test Item Value Reference Range Interpretation Comments TSH, third generation (test code 1.810 uIU/mL 0.400-4.100 = TSH, third generation) [facility] CenterReagin Ab [Presence] in Serum by RPR 2019-12-01 00:00:00 Test Item Value Reference Range Interpretation Comments RPR result (test code = RPR non-reactive non-reactive result) RPR titer (test code = RPR not indic. not indic. titer) [facility] CenterPT and aPTT panel - Platelet poor plasma by Coagulation [id number] 00:00:00 Test Item Value Reference Range Interpretation Comments prothrombin time (PT) (test code 13.9 seconds 12.5-14.7 = prothrombin time (PT)) INR (test code = INR) 1.0 see below PTT (test code = PTT) 30.1 seconds 25.2-40.0 [facility] CenterHIV 1+2 Ab [Presence] in Serum or Plasma by [id number] 00:00:00 Test Item Value Reference Range Interpretation Comments HIV 1/2 4TH gen, rflx conf (test non-reactive non-reactive code = HIV 1/2 4TH gen, rflx conf) [facility] CenterAc[facility] 2000 panel - Serum 2019-12-01 00:00:00 [...] (note) (test code = interpretation hepatitis C:) [facility] CenterChlamydia trachomatis+Neisseria gonorrhoeae DNA [Presence] in Urine by ANSLEY with probe [id number] 00:00:00 Test Item Value Reference Range Interpretation Comments gonorrhea, tma (test code = negative negative gonorrhea, tma) chlamydia, tma (test code = negative negative chlamydia, tma) [facility] CenterUrinalysis complete W Reflex Culture panel - [id number] 00:00:00 Test Item Value Reference Range Interpretation [...] (test code = 5-10 0-10 epithelial cells) [facility] CenterLipid 1996 panel - Serum or Plasma 2019-12-01 [...] = 1.61 ratio <3.22 risk ratio LDL/HDL) [facility] CenterCBC W Auto Differential panel - Blood 2019-12-01 [...] [facility] ProgramCom[facility] 2000 panel - Serum or [id number] 00:00:00 Test Item Value Reference Range Interpretation [...] (test code = ALT) 26 U/L 5-40 [facility] CenterThyrotropin [Units/volume] in Serum or [id number] 00:00:00 Test Item Value Reference Range Interpretation Comments TSH, third generation (test code 1.810 uIU/mL 0.400-4.100 = TSH, third generation) [facility] CenterReagin Ab [Presence] in Serum by RPR 2019-12-01 00:00:00 Test Item Value Reference Range Interpretation Comments RPR result (test code = RPR non-reactive non-reactive result) RPR titer (test code = RPR not indic. not indic. titer) [facility] CenterPT and aPTT panel - Platelet poor plasma by Coagulation [id number] 00:00:00 Test Item Value Reference Range Interpretation Comments prothrombin time (PT) (test code 13.9 seconds 12.5-14.7 = prothrombin time (PT)) INR (test code = INR) 1.0 see below PTT (test code = PTT) 30.1 seconds 25.2-40.0 [facility] CenterHIV 1+2 Ab [Presence] in Serum or Plasma by [id number] 00:00:00 Test Item Value Reference Range Interpretation Comments HIV 1/2 4TH gen, rflx conf (test non-reactive non-reactive code = HIV 1/2 4TH gen, rflx conf) [facility] CenterAc[facility] 2000 panel - Serum 2019-12-01 00:00:00 [...] (note) (test code = interpretation hepatitis C:) [facility] CenterChlamydia trachomatis+Neisseria gonorrhoeae DNA [Presence] in Urine by ANSLEY with probe [id number] 00:00:00 Test Item Value Reference Range Interpretation Comments gonorrhea, tma (test code = negative negative gonorrhea, tma) chlamydia, tma (test code = negative negative chlamydia, tma) [facility] CenterUrinalysis complete W Reflex Culture panel - [id number] 00:00:00 Test Item Value Reference Range Interpretation Comments color (test code = yellow yellow-straw color) appearance (test code = turbid clear A appearance) specific gravity (test 1.026 1.005-1.035 code = specific gravity) leukocyte esterase negative negative (test code = leukocyte esterase) nitrite (test code = negative negative nitrite) pH (test code = pH) 5.0 5.0-9.0 protein (test code = negative negative protein) glucose (test code = negative negative glucose) ketones (test code = negative negative ketones) urobilinogen (test code <2.0 See_Comment [Au tomated message] = urobilinogen) The system w [facility] generated this result transmitted ref erence range: <=2.0. T he reference range was not used to int erpret this result as normal/abnormal . bilirubin (test code = negative negative bilirubin) occult blood (test code negative negative = occult blood) white blood cells (test 0-5 0-5 code = white blood cells) red blood cells (test 0-2 0-5 code = red blood cells) epithelial cells (test 5-10 0-10 code = epithelial cells) [facility] CenterLip[facility] 1996 panel - Serum or Plasma 2019-12-01 [...] = 1.61 ratio <3.22 risk ratio LDL/HDL) [facility] CenterCBC W Auto Differential panel - Blood 2019-12-01 [...] code = 156 K/uL 130-400 platelet count) [facility] CenterComprehensive [facility] 2000 panel - Serum or [id number] 00:00:00 Test Item Value Reference Range Interpretation Comments glucose (test code = 95 mg/dL 70-99 glucose) BUN (test code = 19 mg/dL 6-20 BUN) creatinine (test 0.67 mg/dL 0.60-1.30 code = creatinine) eGFR amer. 145 >60 (test code = eGFR mL/min/1.73 amer.) eGFR non- 125 >60 amer. (test code = mL/min/1.73 eGFR non- amer.) calc BUN/creat (test 28 ratio 6-28 code = calc BUN/creat) sodium (test code = 140 mEq/L 133-146 sodium) potassium (test code 4.1 mEq/L 3.5-5.4 = potassium) chloride (test code 102 mEq/L 95-107 = chloride) carbon dioxide (test 25 mEq/L 19-31 code = carbon dioxide) calcium (test code = 9.7 mg/dL 8.5-10.5 calcium) protein, total (test 7.3 g/dL 6.1-8.3 code = protein, total) albumin (test code = 4.8 g/dL 3.5-5.2 albumin) calc globulin (test 2.5 g/dL 1.9-3.7 code = calc globulin) calc A/G ratio (test 1.9 ratio 1.0-2.6 code = calc A/G ratio) bilirubin, total 0.6 mg/dL See_Comment [Automated message] (test code = The system [facility] h bilirubin, total) generated this result transmit denny reference range : <=1.2. The refe rence range was not u sed to interpret th is result as normal/abnormal . alkaline phosphatase 74 U/L 38-117 (test code = alkaline phosphatase) AST (test code = 24 U/L 9-40 AST) ALT (test code = 26 U/L 5-40 ALT) [facility] in Serum or [id number] 00:00:00 Test Item Value Reference Range Interpretation Comments TSH, third generation (test code 1.810 uIU/mL 0.400-4.100 = TSH, third generation) [facility] [Presence] in Serum by RPR 2019-12-01 00:00:00 Test Item Value Reference Range Interpretation Comments RPR result (test code = RPR non-reactive non-reactive result) RPR titer (test code = RPR not indic. not indic. titer) [facility] - Platelet poor plasma by Coagulation [id number] 00:00:00 Test Item Value Reference Range Interpretation Comments prothrombin time (PT) (test code 13.9 seconds 12.5-14.7 = prothrombin time (PT)) INR (test code = INR) 1.0 see below PTT (test code = PTT) 30.1 seconds 25.2-40.0 [facility]2 [facility] [Presence] in Serum or Plasma by [id number] 00:00:00 Test Item Value Reference Range Interpretation Comments HIV 1/2 4TH gen, rflx conf (test non-reactive non-reactive code = HIV 1/2 4TH gen, rflx conf) [facility] 2000 [facility] - Serum 2019-12-01 00:00:00 [...] (note) (test code = interpretation hepatitis C:) [facility]Ch[facility]ydia trachomatis+Neisseria gonorrhoeae DNA [Presence] in Urine by ANSLEY with probe [id number] 00:00:00 Test Item Value Reference Range Interpretation Comments gonorrhea, tma (test code = negative negative gonorrhea, tma) chlamydia, tma (test code = negative negative chlamydia, tma) [facility] test, [id number] 11:52:00 Test Item Value Reference Range Interpretation Comments HCG (test code = HCG) negative [facility] Programpregnancy test, [id number] 11:52:00 Test Item Value Reference Range Interpretation Comments HCG (test code = HCG) negative [facility] Programpregnancy test, [id number] 11:52:00 Test Item Value Reference Range Interpretation Comments HCG (test code = HCG) negative [facility] Programpregnancy test, [id number] 11:52:00 Test Item Value Reference Range Interpretation Comments HCG (test code = HCG) negative [facility] Programpregnancy test, [id number] 11:52:00 Test Item Value Reference Range Interpretation Comments HCG (test code = HCG) [facility], [id number] 11:52:00 Test Item Value Reference Range Interpretation Comments HCG (test code = HCG) [facility], [id number] 11:52:00 Test Item Value Reference Range Interpretation Comments HCG (test code = HCG) negative [facility]
[2020-09-14 02:35] LABS: Urine Blood 3+ (Negative); Urine Glucose Negative (Negative); Urine Protein 2+ (Negative); Urine pH 7.5 (5.0-7.0)
[2020-09-14 03:04] LABS: Absolute Lymphocytes (CBC) 0.6 K/uL (0.7-4.9); Basophils % 0.9 % (0-1.3); Hematocrit 37.6 % (36.0-45.0); Lymphocytes % 15.5 % (15.3-44.8); MPV 11.6 fL (7.6-11.3); RBC Red Blood Cell Count 4.41 M/uL (3.86-4.86)
[2020-09-14 03:05] LABS: Protime INR 1.13
[2020-09-14 03:07] LABS: Barbiturates NEGATIVE (NEGATIVE); Benzodiazepines NEGATIVE (NEGATIVE); Cocaine NEGATIVE (NEGATIVE); METHAMPHETAM NEGATIVE (NEGATIVE); Methadone NEGATIVE (NEGATIVE); Opiates NEGATIVE (NEGATIVE); Phencyclidine NEGATIVE (NEGATIVE); THC Cannibis NEGATIVE (NEGATIVE)
[2020-09-14 03:26] LABS: ALT/SGPT 29 U/L (12-78); AST/SGOT 16 U/L (15-37); Albumin 3.8 g/dL (3.4-5.0); Alkaline Phosphatase 106 U/L (45-117); BUN Blood Urea Nitrogen 10 mg/dL (7-18); Bicarbonate 24 mmol/L (21-32); Bilirubin Direct 0.1 mg/dL (0-0.2); Bilirubin Total 0.5 mg/dL (0.2-1.0); Glucose Level 87 mg/dL (74-106); Potassium 3.8 mmol/L (3.5-5.1); Protein, Total 7.1 g/dL (6.4-8.2); Sodium Level 142 mmol/L (136-145); Troponin (Emerg Dept Use Only) < 0.02 ng/mL (0.0-0.045)
--- NOTE | 2020-09-14 04:08 | ER ---
Nurse's Notes 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 Coronavirus screen: Client ak2 denies travel out of the [place] in the last 14 days. At this time, the client does not indicate any symptoms associated with coronavirus-19. Ebola Screen: Patient negative for fever greater than or equal to 101.5 degrees Fahrenheit, and additional compatible Ebola Virus Disease symptoms Patient denies exposure to infectious person. Patient denies travel to an Ebola-affected area in the 21 days before illness onset. No symptoms or risks identified at this time. Initial Sepsis Screen: Does the patient meet any 2 criteria? No. Patient's initial sepsis screen is negative. Does the patient have a suspected source of infection? No. Patient's initial sepsis screen is negative. Risk Assessment: Do you want to hurt yourself or someone else? Patient reports no desire to harm self or others. Onset of symptoms was September 14, 2020. 01:20 Method Of Arrival: Ambulatory ak2 01:20 Acuity: CHUCKIE 3 ak2 Triage Assessment: :23 General: Appears in no apparent distress. Behavior is calm, cooperative. Pain: Denies ak2 pain. Neuro: No deficits noted. Cardiovascular: No deficits noted. Respiratory: No deficits noted. Historical: - Allergies: :22 No Known Allergies; ak2 - Home Meds: : prazosin 1 mg Oral cap 1 cap once at bedtime [Active]; ak2 - Immunization history:: Adult Immunizations up to date. - Social history:: Smoking status: unknown. Screenin:23 Abuse screen: Denies threats or abuse. Denies injuries from another. Nutritional ak2 screening: No deficits noted. Tuberculosis screening: No symptoms or risk factors identified. Fall Risk None identified. Assessment: 01:23 General: Appears in no apparent distress. Pain: Denies pain. Neuro: No deficits noted. ak2 Cardiovascular: No deficits noted. Respiratory: No deficits noted. 03:34 Reassessment: Patient and/or family updated on plan of care and expected duration. Pain ak2 level reassessed. Vital Signs: 01:20 BP 123 / 63; Pulse 77; Resp 20; Temp 98.9; Pulse Ox 95% ; Weight 54.43 kg; Height 5 ft. ak2 1 in. (154.94 cm); 03:35 BP 106 / 57; Pulse 61; Resp 16; Pulse Ox 100% on R/A; ak2 04:34 BP 110 / 62; Pulse 62; Resp 18; Pulse Ox 98% ; ak2 01:20 Body Mass Index 22.67 (54.43 kg, 154.94 cm) ak2 ED Course: 00:41 Patient arrived in ED. wm 01:19 Vishal Singletary MD is Attending Physician. [facility] 01:20 Bed in low position. Call light in reach. satellite project site monitor on. Pulse ox on. NIBP on. tt3 01:22 Triage completed. ak2 01:23 No provider procedures requiring assistance completed. ak2 01:24 Arm band placed on right wrist. ak2 04:07 Adama Durham MD is Referral Physician. [facility] Administered Medications: No medications were administered Outcome: 04:08 Discharge ordered by . 7 04:35 Discharged to home ambulatory. ak2 04:35 Condition: good 04:35 Discharge instructions given to patient. 04:35 Patient left the ED. ak2 Signatures: Vishal Singletary MD MD 7 Mauro Fraser tt3 Claudy Heredia ak2 Priti Naranjo Corrections: (The following items were deleted from the chart) 01:22 01:22 PMHx: hypoplastic left heart syndrome; ak2 ak2 :22 01:22 PMHx: Seizures; ak2 ak2 :22 01:22 PMHx: stroke; ak2 ak2 :22 01:22 PMHx: TBI; ak2 ak2 : 01:22 PMHx: PTSD; ak2 ak2
--- NOTE | 2020-09-14 04:09 | EDPHYS ---
Physician Documentation [facility] Name: Taniya Hudson Age: 25 yrs Sex: Female : 1995 Arrival Date: 09/14/2020 Time: 00:41 Bed 13 Private MD: ED Physician Vishal Singletary HPI: 09/14 01:30 This 25 yrs old Female presents to ER via Ambulatory with complaints of mh7 Anxiety. 01:30 The patient presents to the emergency department with anxiety, over a , mh7 Grandfather. Onset: The symptoms/episode began/occurred just prior to arrival, today. Past psychiatric history: Prior diagnosis: Anxiety, PTSD, Psychiatric medications include: sertraline, Primary psychiatric physician: the patient does not have a primary psychiatric physician, the patient has not had a prior suicide gesture, the patient does not have a previous inpatient psychiatric history, the patient's last psychiatric treatment was none. Associated signs and symptoms: Pertinent positives; anxiety, palpitations, Hyperventilation, Pertinent negatives: abdominal pain, chills, delusions, fever, hallucinations, headache, homicidal ideation, nausea, night sweats, paranoia, shortness of breath, substance abuse, suicide ideation, tremor, vomiting. Severity of symptoms: At their worst the symptoms were moderate today, in the emergency department the symptoms have improved moderately. Historical: - Allergies: 01:22 No Known Allergies; ak2 - Home Meds: :22 prazosin 1 mg Oral cap 1 cap once at bedtime [Active]; ak2 - Immunization history:: Adult Immunizations up to date. - Social history:: Smoking status: unknown. ROS: 01:30 Constitutional: Negative for fever, chills, and weight loss, Eyes: Negative for injury, mh7 pain, redness, and discharge, ENT: Negative for injury, pain, and discharge, Neck: Negative for injury, pain, and swelling, Cardiovascular: Negative for chest pain, palpitations, and edema, Respiratory: Negative for shortness of breath, cough, wheezing, and pleuritic chest pain, Abdomen/GI: Negative for abdominal pain, nausea, vomiting, diarrhea, and constipation, Back: Negative for injury and pain, : Negative for injury, bleeding, discharge, and swelling, MS/Extremity: Negative for injury and deformity, Skin: Negative for injury, rash, and discoloration, Neuro: Negative for headache, weakness, numbness, tingling, and seizure, Allergy/Immunology: Negative for hives, rash, and allergies, Endocrine: Negative for neck swelling, polydipsia, polyuria, polyphagia, and marked weight changes, Hematologic/Lymphatic: Negative for swollen nodes, abnormal bleeding, and unusual bruising. Exam: 01:30 Head/Face: Normocephalic, atraumatic. Eyes: Pupils equal round and reactive to light, mh7 extra-ocular motions intact. Lids and lashes normal. Conjunctiva and sclera are non-icteric and not injected. Cornea within normal limits. Periorbital areas with no swelling, redness, or edema. Neck: Trachea midline, no thyromegaly or masses palpated, and no cervical lymphadenopathy. Supple, full range of motion without nuchal rigidity, or vertebral point tenderness. No Meningismus. Chest/axilla: Normal chest wall appearance and motion. Nontender with no deformity. No lesions are appreciated. Cardiovascular: Regular rate and rhythm with a normal S1 and S2. No gallops, murmurs, or rubs. Normal PMI, no JVD. No pulse deficits. Respiratory: Lungs have equal breath sounds bilaterally, clear to auscultation and percussion. No rales, rhonchi or wheezes noted. No increased work of breathing, no retractions or nasal flaring. Abdomen/GI: Soft, non-tender, with normal bowel sounds. No distension or tympany. No guarding or rebound. No evidence of tenderness throughout. Back: No spinal tenderness. No costovertebral tenderness. Full range of motion. Skin: Warm, dry with normal turgor. Normal color with no rashes, no lesions, and no evidence of cellulitis. MS/ Extremity: Pulses equal, no cyanosis. Neurovascular intact. Full, normal range of motion. Neuro: Awake and alert, GCS 15, oriented to person, place, time, and situation. Cranial nerves II-XII grossly intact. Motor strength 5/5 in all extremities. Sensory grossly intact. Cerebellar exam normal. Normal gait. 01:30 Constitutional: The patient appears in no acute distress, alert, awake, anxious. 01:30 Psych: Behavior/mood is cooperative, anxious, Oriented to person, place, time, Patient has no thoughts/intents to harm self or others. Judgement / Insight is normal. Memory is normal. Delusions/hallucinations are not present. Vital Signs: 01:20 BP 123 / 63; Pulse 77; Resp 20; Temp 98.9; Pulse Ox 95% ; Weight 54.43 kg; Height 5 ft. ak2 1 in. (154.94 cm); 03:35 BP 106 / 57; Pulse 61; Resp 16; Pulse Ox 100% on R/A; ak2 04:34 BP 110 / 62; Pulse 62; Resp 18; Pulse Ox 98% ; ak2 01:20 Body Mass Index 22.67 (54.43 kg, 154.94 cm) ak2 MDM: 04:06 Differential diagnosis: depression, Anxiety, Substance Abuse. Data reviewed: vital [facility] signs, nurses notes, lab test result(s), cardiac enzymes, CBC, electrolytes, urinalysis, urine drug screen, UPT: negative EKG. Data interpreted: Pulse oximetry: on room air is 100 %. Interpretation: normal. Counseling: I had a detailed discussion with the patient and/or guardian regarding: the historical points, exam findings, and any diagnostic results supporting the discharge/admit diagnosis, lab results, radiology results, the need for outpatient follow up, a psychiatrist, to return to the emergency department if symptoms worsen or persist or if there are any questions or concerns that arise at home. Response to treatment: the patient's symptoms have resolved after treatment, the patient's blood pressure is in an acceptable range, mental status has returned to baseline, the patient no longer shows bradycardia, the patient is not short of breath, the patient is not tachycardic, the patient's pain is gone, the patient's temperature has normalized, the patient is now symptom free. 04:08 Patient medically screened. [facility] 09/14 01:30 Order name: Acetaminophen [facility] 09/14 01:30 Order name: Basic Metabolic Panel [facility] 09/14 01:30 Order name: CBC with Diff; Complete Time: 03:50 [facility] 09/14 01:30 Order name: ETOH Level; Complete Time: 03:50 [facility] 09/14 01:30 Order name: Hepatic Function; Complete Time: 03:50 [facility] 09/14 01:30 Order name: PT-INR; Complete Time: 03:50 [facility] 09/14 01:30 Order name: Ptt, Activated; Complete Time: 03:50 [facility] 09/14 01:30 Order name: Salicylate; Complete Time: 03:50 [facility] 09/14 01:30 Order name: Urine Drug Screen; Complete Time: 03:50 [facility] 09/14 01:31 Order name: Acetaminophen Level; Complete Time: 03:50 EDMS 09/14 01:31 Order name: Basic Metabolic Panel; Complete Time: 03:50 EDMS 09/14 02:34 Order name: Urine Dipstick-Ancillary; Complete Time: 02:43 EDMS 09/14 02:43 Order name: Urine --Ancillary (enter results) 09/14 01:30 Order name: EKG; Complete Time: 01:31 [facility] 09/14 01:30 Order name: EKG - Nurse/Tech [facility] 09/14 01:30 Order name: IV Saline Lock [facility] 09/14 01:30 Order name: Labs collected and sent [facility] 09/14 01:30 Order name: Suicide Screening ([place]) [facility] 09/14 01:30 Order name: Urine Dipstick-Ancillary (obtain specimen) [facility] 09/14 01:30 Order name: Urine Test (obtain specimen) [facility] 09/14 02:43 Order name: Urine --Ancillary; Complete Time: 03:50 EDMS 09/14 02:52 Order name: Troponin (Emerg Dept Use Only); Complete Time: 03:50 EDMS Administered Medications: No medications were administered Disposition Summary: 09/14/20 04:08 Discharge Ordered Location: Home [facility] Problem: an acute exacerbation [facility] Symptoms: have improved [facility] Condition: Stable [facility] Diagnosis - Anxiety [facility] Followup: [facility] - With: Private Physician - When: 1 - 2 days - Reason: Worsening of condition, Recheck today's complaints, Continuance of care, Re-evaluation by your physician Followup: [facility] - With: Adama Durham MD - When: 1 - 2 days - Reason: Worsening of condition, Recheck today's complaints Discharge Instructions: - Discharge Summary Sheet 7 - Panic Attack, [id number] 7 - Generalized Anxiety Disorder, Adult [facility] Forms: - Medication Reconciliation Form [facility] - Thank You Letter [facility] - Antibiotic Education 7 - Prescription Opioid Use [facility] Signatures: Dispatcher [employer] Vishal Donohue MD MD 7 Claudy Heredia ak2 Corrections: (The following items were deleted from the chart) 01:22 PMHx: hypoplastic left heart syndrome; ak2 ak2 :22 PMHx: Seizures; ak2 ak2 : PMHx: stroke; ak2 ak2 01:22 PMHx: TBI; ak2 ak2 01:22 PMHx: PTSD; ak2 ak2 02:52 02:19 TROPONIN (EMERG DEPT USE ONLY)+C.LAB.BRZ ordered. EDMS EDMS
[2020-09-14 04:41] VITALS: TEMP 98.9
[2020-09-14 04:45] VITALS: BP 110/62; O2SAT 98
--- NOTE | 2020-09-14 11:43 | EKG ---
Test Date: 2020-09-14 Test Time: 02:13:23 Production Material Handler: MEASUREMENT RESULTS: Intervals: Rate: 69 MN: 104 QRSD: 102 QT: 430 QTc: 460 [place]: P: MN: 104 QRS: 239 T: 78 INTERPRETIVE STATEMENTS: Sinus rhythm with short MN Incomplete right bundle branch block Right ventricular hypertrophy Possible Lateral infarct, age undetermined Abnormal ECG No previous ECG available for comparison Electronically Signed On 09-14-20 11:41:58 CDT by Suhail Oscar
== END 2020-09-14 04:35 | disposition home or self-care (01) ==
LOC: ER 00:37
DX: F41.9 Anxiety disorder, unspecified (principal)
CPT/HCPCS: 36415; 80048; 80076; 80307; 80320; 80329; 81003; 81025; 84484; 85025; 85610; 85730; 93005; 99284

== ENCOUNTER 2020-09-26 16:29 | Emergency (ER) | payer SELFPAY ==
--- OUTSIDE RECORDS SUMMARY | 2020-09-26 16:32 | XMS REPORT | Continuity of Care Document ---
:1995 Author Organization [facility] t Address [address] [place] [address] Care Team Providers Name Role Phone Thomas Tubbs Attending Clinician Darcie PEREZ, T Attending Clinician Unavailable [place] López Attending Clinician Dada Kessler MD Attending Clinician Margarito ACOSTA M Attending Clinician Unavailable Problems Condition Condition [...] Start Date Stop Date Source Never Smoker [facility] pal [facility] Medications Ordered [...] Source Name Name influenza, influenza, 2019-11-30 Completed [facility] injectable, injectable, 11:22:00 [facility]th quadrivalent, quadrivalent, Outreach Program preservative free preservative free Tdap Tdap 2019-11-30 Completed [facility] 11:21:00 [facility] Progr am Vital Signs Vital Name Observation Time Observation Value Comments Source BP Diastolic 2020-09-12 00:00:00 55 mm[Hg] [facility] Height 2020-09-12 00:00:00 61 [in_i] [facility] BMI (Body Mass 2020-09-12 00:00:00 24.6 kg/m2 [place] milk of lime slaker [facility] Index) [facility] Outreach Program BP Systolic 2020-09-12 00:00:00 109 mm[Hg] [place] [facility] Body Weight 2020-09-12 00:00:00 2083 [oz_av] [place] [facility] BP Diastolic 2020-02-01 00:00:00 62 mm[Hg] [place] [facility] Height 2020-02-01 00:00:00 61 [in_i] [place] [facility] BMI (Body Mass 2020-02-01 00:00:00 22.9 kg/m2 [place] milk of lime slaker [facility] Index) [facility] Outreach [facility] BP Systolic 2020-02-01 00:00:00 106 mm[Hg] [place] [facility] Body Weight 2020-02-01 00:00:00 1942 [oz_av] [place] [facility] BP Diastolic 2020-01-04 00:00:00 64 mm[Hg] [place] [facility] Height 2020-01-04 00:00:00 61 [in_i] [place] [facility] BMI (Body Mass 2020-01-04 00:00:00 22.5 kg/m2 [place] milk of lime slaker [facility] Index) [facility] Outreach [facility] BP Systolic 2020-01-04 00:00:00 112 mm[Hg] [place] [facility] Body Weight 2020-01-04 00:00:00 1905 [oz_av] [place] [facility] BP Diastolic 2019-12-07 00:00:00 61 mm[Hg] [place] [facility] Height 2019-12-07 00:00:00 61 [in_i] [place] [facility] BMI (Body Mass 2019-12-07 00:00:00 23.3 kg/m2 [place] milk of lime slaker [facility] Index) [facility] Outreach [facility] BP Systolic 2019-12-07 00:00:00 122 mm[Hg] [place] [facility] Body Weight 2019-12-07 00:00:00 1974 [oz_av] [place] [facility] BP Diastolic 2019-11-30 00:00:00 68 mm[Hg] [place] [facility] Height 2019-11-30 00:00:00 61 [in_i] [place] [facility] BMI (Body Mass 2019-11-30 00:00:00 22.7 kg/m2 [place] milk of lime slaker [facility] Index) [facility] Outreach [facility] BP Systolic 2019-11-30 00:00:00 114 mm[Hg] [place] [facility] Body Weight 2019-11-30 00:00:00 1923 [oz_av] [place] [facility] Procedures Procedure Date / Time Performed Performing Clinician Sourc e US, transvaginal 2020-09-12 00:00:00 Karen E piscopal [facility] Procedure on Heart [facility] Epi scopal [facility] Outreach [facility] Plan of Care Planned Activity Planned Date Details Comments Source Future Appointment 2020-10-12 11:00:00 Wendy Cotagochristopher [facility] [id number] [address] [facility] [address] , [place] [address] Encounters Start End Encounter Admission Attending Care Care Encounter Source Date/Time Date/Time Type Type Clinicians Facility Department ID 2020-09-12 2020-09-12 E[place] - [id number] M at[place]or 00:00:00 00:00:00 JEFE Pacheco: Karen cat [id number] US [facility] Episc op [address] [facility] [address], [facility] Program [address] , Ph. 2020-08-29 2020-08-29 Long [place] - [id number] M at[place]or 00:00:00 00:00:00 Karen Day PBX INSPECTOR: [id number] [facility] Epi scop [address] [facility] [address], [facility] Program [address] , Ph. 2020-08-01 2020-08-01 Long [place] - [id number] M at[place]or 00:00:00 00:00:00 Karen Day PBX INSPECTOR: [id number] [facility] Epis ad copy writer Ramos [facility] [address] h , Ph. Program (979) 2020 2020 Long [place] - [id number] M atagor 00:00:00 00:00:00 Karen Day PBX INSPECTOR: [id number] [facility] Epi scop [address] [facility] [address], [facility] [place] Program [address] , Ph. 2020-05-24 2020-05-24 Long [place] - [id number] M atagor 00:00:00 00:00:00 Karen Day PBX INSPECTOR: [id number] [facility] Epi scop [address] [facility] [address], [facility] [place] Program [address] , Ph. 2020-05-04 2020-05-04 [facility] [id number] [place] 00:00:00 00:00:00 MD Robert: Karen cat [id number] US [facility] op [address] [facility] [address] , [facility] [place] Program [address] , Ph. 2020-04-04 2020-04-04 Emergency YanceyRUST [id number] 16:55:00 18:45:00 Petra Reed [id number] [place] [id number] [place] [phone] [id number] 2020-04-02 2020-04-02 Letter OG Sprague [id number] 00:00:00 00:00:00 (Out) Julieth ELY [id number] [facility] [id number] [id number] 2020-03-31 2020-04-01 Emergency Rodrigo Solis [facility] [id number] 23:53:00 05:34:00 Florida Cleghorn [id number] [place] [id number] [place] [id number] [id number] 2020-03-07 2020-03-07 Long [place] - [id number] M at[place]or 00:00:00 00:00:00 Karen Day PBX INSPECTOR: [id number] [facility] Epi scop [address] [facility] [address], [facility] [place] Program [address] , Ph. 2020-02-29 2020-02-29 Long [place] - [id number] M atagor 00:00:00 00:00:00 Karen Day PBX INSPECTOR: [id number] [facility] Epi scop [address] [facility] [address], [facility] [place] Program [address] , Ph. 2020-02-22 2020-02-22 Long [place] - [id number] M atagor 00:00:00 00:00:00 Karen Day PBX INSPECTOR: [id number] [facility] Epi scop [address] [facility] [address], [facility] [place] Program [address] , Ph. 2020-02-08 2020-02-08 Long [place] - [id number] M atagor 00:00:00 00:00:00 Karen Day PBX INSPECTOR: [id number] [facility] Epi scop [address] [facility] [address], [facility] [place] Program [address] , Ph. 2020-02-05 2020-02-05 DEVON Walker [id number] 00:00:00 00:00:00 [facility] [id number] [facility] [id number] [place] [phone] [facility] Office Building 2020-02-01 2020-02-01 Ely [place] - [id number] atagor 00:00:00 00:00:00 JEFE Pacheco: Karen cat [id number] [place] [facility] Ep[facility] op [address] [facility], [facility] [address], [facility] [place] Program [address] , Ph. 2020-01-31 2020-01-31 Refill Victoria [facility] [id number] 00:00:00 00:00:00 [facility] [id number] [place] [id number] [place] [id number] Medical 149 Office Building 2020-01-19 2020-01-19 Refill Victoria [facility] [id number] 00:00:00 00:00:00 [facility] [id number] [place] [id number] [place] [phone] Medical 149 Office Building 2020-01-16 2020-01-16 Juan PimentelCecilia [facility] [id number] 00:00:00 00:00:00 Management M Health [id number] [place] [id number] [place] [phone] Medical 149 Office Building 2020-01-13 2020-01-13 Juan PimentelCecilia [facility] [id number] 00:00:00 00:00:00 Management M Health [id number] [place] [id number] [place] [phone] Medical 149 Office Building 2020-01-11 2020-01-[address] [facility] [place] - [id number] M atagor 00:00:00 00:00:00 Karen Day LPC: [id number] [facility] Epi scop US [address] [facility], [facility] [address], [facility] [place] Program [address] , Ph. 2020-01-10 2020-01-10 Juan Kessler [facility] [id number] 00:00:00 00:00:00 Management [facility] [id number] Dada Last [id number] [place] [address] [id number] [facility] Office Building 2020-01-04 2020-01-04 Ely [place] - [id number] atagor 00:00:00 00:00:00 JEFE Pacheco: Karen cat [id number] [place] [facility] op 59 [facility] Health [address], [facility] [place] Program [address] , Ph. 2019-12-28 2019-12-28 Long GRIFFINHERMELINDA [place] - [id number] M atagor 00:00:00 00:00:00 Karen Day PBX INSPECTOR: [id number] [facility] Epi scop [address] [facility] [address], [facility] [place] Program [address] , Ph. 2019-12-23 2019-12-23 Stefanyossi [place] - [id number] [place] 00:00:00 00:00:00 MD Robert: Karen cat [id number] [place] [facility] op [address] [facility] [address], [facility] [place] Program [address] , Ph. 2019-12-21 2019-12-21 Long GRIFFINHERMELINDA [place] - [id number] M atagor 00:00:00 00:00:00 Karen Day PBX INSPECTOR: [id number] [facility] Epi scop US [address] [facility] [address], [facility] [place] Program [address] , Ph. 2019-12-14 2019-12-14 Long MEHERMELINDA [place] - [id number] M atagor 00:00:00 00:00:00 Karen Day PBX INSPECTOR: [id number] [facility] Epi scop US [address] [facility] [address], [facility] [place] Program [address] , Ph. 2019-12-07 2019-12-07 Long [place] - [id number] M atagor 00:00:00 00:00:00 Karen Day PBX INSPECTOR: [id number] [facility] Epi scop US [address] [facility] [address], [facility] [place] Program [address] , Ph. 2019-11-30 2019-11-30 Elyemory [place] - [id number] M atagor 00:00:00 00:00:00 JEFE Pacheco: Karen cat [id number] [place] [facility] Ep[facility] op 59 [facility] [address] , [facility] [place] Program [address] , Ph. 2019-11-23 2019-11-23 Long [place] - [id number] M atagor 00:00:00 00:00:00 Karen Day PBX INSPECTOR: [id number] [facility] Epi scop US [address] [facility] [address], [facility] [place] Program [address] , Ph. 2019-11-16 2019-11-16 Long [place] - [id number] M atagor 00:00:00 00:00:00 Karen Day PBX INSPECTOR: [id number] [facility]ist Epi scop US [address] [facility] [address], [facility] [place] Program [address] , Ph. 2019-11-02 2019-11-02 Long [place] - [id number] M atagor 00:00:00 00:00:00 Karen Day PBX INSPECTOR: [id number] [facility] Epi scop US [address] [facility] [address], [facility] [place] Program [address] , Ph. 2019-10-26 2019-10-26 Long [place] - [id number] M atagor 00:00:00 00:00:00 Karen Day PBX INSPECTOR: [id number] [facility]ist Epi scop US 59 [facility] [address], [place] Program [address] , Ph. Results Test Description Test Time [...] (test code = epithelial cells) 5-10 0-10 [facility] - Serum or Plasma 2019-12-01 [...] = 1.61 ratio <3.22 risk ratio LDL/HDL) [facility] W Auto Differential panel - Blood 2019-12-01 [...] code = 156 K/uL 130-400 platelet count) [facility] ProgramComprehensive metabolic 2000 panel - Serum or [id number] 00:00:00 Test Item Value Reference Range Interpretation [...] (test code = ALT) 26 U/L 5-40 [facility]ballThyrotropin [Units/volume] in Serum or [id number] 00:00:00 Test Item Value Reference Range Interpretation Comments TSH, third generation (test code 1.810 uIU/mL 0.400-4.100 = TSH, third generation) [facility] Ab [Presence] in Serum by RPR 2019-12-01 00:00:00 Test Item Value Reference Range Interpretation Comments RPR result (test code = RPR non-reactive non-reactive result) RPR titer (test code = RPR not indic. not indic. titer) [facility]ball[facility] and aPTT panel - Platelet poor plasma by Coagulation [id number] 00:00:00 Test Item Value Reference Range Interpretation Comments prothrombin time (PT) (test code 13.9 seconds 12.5-14.7 = prothrombin time (PT)) INR (test code = INR) 1.0 see below PTT (test code = PTT) 30.1 seconds 25.2-40.0 [facility]ballHIV 1+2 Ab [Presence] in Serum or Plasma by [id number] 00:00:00 Test Item Value Reference Range Interpretation Comments HIV 1/2 4TH gen, rflx conf (test non-reactive non-reactive code = HIV 1/2 4TH gen, rflx conf) [facility]ball[facility] hepatitis 2000 panel - Serum 2019-12-01 00:00:00 [...] (note) (test code = interpretation hepatitis C:) [facility]ballChlamydia trachomatis+Neisseria gonorrhoeae DNA [Presence] in Urine by ANSLEY with probe [id number] 00:00:00 Test Item Value Reference Range Interpretation Comments gonorrhea, tma (test code = negative negative gonorrhea, tma) chlamydia, tma (test code = negative negative chlamydia, tma) [facility]ballUrinalysis complete W Reflex Culture panel - [id number] 00:00:00 Test Item Value Reference Range Interpretation [...] (test code = 5-10 0-10 epithelial cells) [facility] panel - Serum or Plasma 2019-12-01 [...] = 1.61 ratio <3.22 risk ratio LDL/HDL) [facility] W Auto Differential panel - Blood 2019-12-01 [...] code = 156 K/uL 130-400 platelet count) [facility]ballComprehensive metabolic 2000 panel - Serum or [id number] 00:00:00 Test Item Value Reference Range Interpretation [...] (test code = ALT) 26 U/L 5-40 [facility]ballThyrotropin [Units/volume] in Serum or [id number] 00:00:00 Test Item Value Reference Range Interpretation Comments TSH, third generation (test code 1.810 uIU/mL 0.400-4.100 = TSH, third generation) [facility]ballReagin Ab [Presence] in Serum by RPR 2019-12-01 00:00:00 Test Item Value Reference Range Interpretation Comments RPR result (test code = RPR non-reactive non-reactive result) RPR titer (test code = RPR not indic. not indic. titer) [facility] aPTT panel - Platelet poor plasma by Coagulation [id number] 00:00:00 Test Item Value Reference Range Interpretation Comments prothrombin time (PT) (test code 13.9 seconds 12.5-14.7 = prothrombin time (PT)) INR (test code = INR) 1.0 see below PTT (test code = PTT) 30.1 seconds 25.2-40.0 [facility]ballHIV 1+2 Ab [Presence] in Serum or Plasma by [id number] 00:00:00 Test Item Value Reference Range Interpretation Comments HIV 1/2 4TH gen, rflx conf (test non-reactive non-reactive code = HIV 1/2 4TH gen, rflx conf) [facility] 2000 panel - Serum 2019-12-01 00:00:00 [...] (note) (test code = interpretation hepatitis C:) [facility]ballChlamydia trachomatis+Neisseria gonorrhoeae DNA [Presence] in Urine by ANSLEY with probe [id number] 00:00:00 Test Item Value Reference Range Interpretation Comments gonorrhea, tma (test code = negative negative gonorrhea, tma) chlamydia, tma (test code = negative negative chlamydia, tma) [facility]ballUrinalysis complete W Reflex Culture panel - [id number] 00:00:00 Test Item Value Reference Range Interpretation [...] (test code = 5-10 0-10 epithelial cells) [facility] 1996 panel - Serum or Plasma 2019-12-01 [...] = 1.61 ratio <3.22 risk ratio LDL/HDL) [facility]ballCBC W Auto Differential panel - Blood 2019-12-01 [...] code = 156 K/uL 130-400 platelet count) [facility]ballComprehensive metabolic 2000 panel - Serum or [id number] 00:00:00 Test Item Value Reference Range Interpretation [...] (test code = ALT) 26 U/L 5-40 [facility]ballThyrotropin [Units/volume] in Serum or [id number] 00:00:00 Test Item Value Reference Range Interpretation Comments TSH, third generation (test code 1.810 uIU/mL 0.400-4.100 = TSH, third generation) [facility]ballRe[facility] Ab [Presence] in Serum by RPR 2019-12-01 00:00:00 Test Item Value Reference Range Interpretation Comments RPR result (test code = RPR non-reactive non-reactive result) RPR titer (test code = RPR not indic. not indic. titer) [facility] aPTT panel - Platelet poor plasma by Coagulation [id number] 00:00:00 Test Item Value Reference Range Interpretation Comments prothrombin time (PT) (test code 13.9 seconds 12.5-14.7 = prothrombin time (PT)) INR (test code = INR) 1.0 see below PTT (test code = PTT) 30.1 seconds 25.2-40.0 [facility]HIV 1+2 Ab [Presence] in Serum or Plasma by [id number] 00:00:00 Test Item Value Reference Range Interpretation Comments HIV 1/2 4TH gen, rflx conf (test non-reactive non-reactive code = HIV 1/2 4TH gen, rflx conf) [facility]Ac[facility] 2000 panel - Serum 2019-12-01 00:00:00 [...] (note) (test code = interpretation hepatitis C:) [facility]ballChlamydia trachomatis+Neisseria gonorrhoeae DNA [Presence] in Urine by ANSLEY with probe [id number] 00:00:00 Test Item Value Reference Range Interpretation Comments gonorrhea, tma (test code = negative negative gonorrhea, tma) chlamydia, tma (test code = negative negative chlamydia, tma) [facility]ballUrinalysis complete W Reflex Culture panel - [id number] 00:00:00 Test Item Value Reference Range Interpretation [...] (test code = 5-10 0-10 epithelial cells) [facility] 1996 panel - Serum or Plasma 2019-12-01 [...] = 1.61 ratio <3.22 risk ratio LDL/HDL) [facility] W Auto Differential panel - Blood 2019-12-01 [...] code = 156 K/uL 130-400 platelet count) [facility]ballComprehensive metabolic 2000 panel - Serum or [id number] 00:00:00 Test Item Value Reference Range Interpretation [...] (test code = ALT) 26 U/L 5-40 [facility]ballThyrotropin [Units/volume] in Serum or [id number] 00:00:00 Test Item Value Reference Range Interpretation Comments TSH, third generation (test code 1.810 uIU/mL 0.400-4.100 = TSH, third generation) [facility]ballReagin Ab [Presence] in Serum by RPR 2019-12-01 00:00:00 Test Item Value Reference Range Interpretation Comments RPR result (test code = RPR non-reactive non-reactive result) RPR titer (test code = RPR not indic. not indic. titer) [facility] aPTT panel - Platelet poor plasma by Coagulation [id number] 00:00:00 Test Item Value Reference Range Interpretation Comments prothrombin time (PT) (test code 13.9 seconds 12.5-14.7 = prothrombin time (PT)) INR (test code = INR) 1.0 see below PTT (test code = PTT) 30.1 seconds 25.2-40.0 [facility]ballHIV 1+2 Ab [Presence] in Serum or Plasma by [id number] 00:00:00 Test Item Value Reference Range Interpretation Comments HIV 1/2 4TH gen, rflx conf (test non-reactive non-reactive code = HIV 1/2 4TH gen, rflx conf) [facility]ballAc[facility] 2000 panel - Serum 2019-12-01 00:00:00 [...] (note) (test code = interpretation hepatitis C:) [facility]ballCh[facility]ydia trachomatis+Neisseria gonorrhoeae DNA [Presence] in Urine by ANSLEY with probe [id number] 00:00:00 Test Item Value Reference Range Interpretation Comments gonorrhea, tma (test code = negative negative gonorrhea, tma) chlamydia, tma (test code = negative negative chlamydia, tma) [facility]ballUrinalysis complete W Reflex Culture panel - [id number] 00:00:00 Test Item Value Reference Range Interpretation [...] (test code = 5-10 0-10 epithelial cells) [facility] 1996 panel - Serum or Plasma 2019-12-01 [...] = 1.61 ratio <3.22 risk ratio LDL/HDL) [facility] W Auto Differential panel - Blood 2019-12-01 [...] code = 156 K/uL 130-400 platelet count) [facility] ProgramComprehensive metabolic 2000 panel - Serum or [id number] 00:00:00 Test Item Value Reference Range Interpretation [...] (test code = ALT) 26 U/L 5-40 [facility]ballThyrotropin [Units/volume] in Serum or [id number] 00:00:00 Test Item Value Reference Range Interpretation Comments TSH, third generation (test code 1.810 uIU/mL 0.400-4.100 = TSH, third generation) [facility]Re[facility] Ab [Presence] in Serum by RPR 2019-12-01 00:00:00 Test Item Value Reference Range Interpretation Comments RPR result (test code = RPR non-reactive non-reactive result) RPR titer (test code = RPR not indic. not indic. titer) [facility] aPTT panel - Platelet poor plasma by Coagulation [id number] 00:00:00 Test Item Value Reference Range Interpretation Comments prothrombin time (PT) (test code 13.9 seconds 12.5-14.7 = prothrombin time (PT)) INR (test code = INR) 1.0 see below PTT (test code = PTT) 30.1 seconds 25.2-40.0 [facility]ballHIV 1+2 Ab [Presence] in Serum or Plasma by [id number] 00:00:00 Test Item Value Reference Range Interpretation Comments HIV 1/2 4TH gen, rflx conf (test non-reactive non-reactive code = HIV 1/2 4TH gen, rflx conf) [facility]ballAc[facility] hepatitis 2000 panel - Serum 2019-12-01 00:00:00 [...] (note) (test code = interpretation hepatitis C:) [facility]ballChlamydia trachomatis+Neisseria gonorrhoeae DNA [Presence] in Urine by ANSLEY with probe [id number] 00:00:00 Test Item Value Reference Range Interpretation Comments gonorrhea, tma (test code = negative negative gonorrhea, tma) chlamydia, tma (test code = negative negative chlamydia, tma) [facility]ballUrinalysis complete W Reflex Culture panel - [id number] 00:00:00 Test Item Value Reference Range Interpretation [...] tomated message] = urobilinogen) The system [employer] generated this result transmitted ref erence range: [...] (test 5-10 0-10 code = epithelial cells) [facility]ball[facility] 1996 panel - Serum or Plasma 2019-12-01 [...] = 1.61 ratio <3.22 risk ratio LDL/HDL) [facility]ballCBC W Auto Differential panel - Blood 2019-12-01 [...] code = 156 K/uL 130-400 platelet count) [facility]ballComprehensive metabolic 2000 panel - Serum or [id number] 00:00:00 Test Item Value Reference Range Interpretation [...] [Automated message] (test code = The system [employer] bilirubin, total) generated this result transmit denny reference range : <=1.2. The refe rence range was not u sed to interpret th is result as normal/abnormal . alkaline phosphatase 74 U/L 38-117 (test code = alkaline phosphatase) AST (test code = 24 U/L 9-40 AST) ALT (test code = 26 U/L 5-40 ALT) [facility]ballThyrotropin [Units/volume] in Serum or [id number] 00:00:00 Test Item Value Reference Range Interpretation Comments TSH, third generation (test code 1.810 uIU/mL 0.400-4.100 = TSH, third generation) [facility]ballReagin Ab [Presence] in Serum by RPR 2019-12-01 00:00:00 Test Item Value Reference Range Interpretation Comments RPR result (test code = RPR non-reactive non-reactive result) RPR titer (test code = RPR not indic. not indic. titer) [facility]ballPT [facility] aPTT panel - Platelet poor plasma by Coagulation [id number] 00:00:00 Test Item Value Reference Range Interpretation Comments prothrombin time (PT) (test code 13.9 seconds 12.5-14.7 = prothrombin time (PT)) INR (test code = INR) 1.0 see below PTT (test code = PTT) 30.1 seconds 25.2-40.0 [facility]ballHIV 1+2 Ab [Presence] in Serum or Plasma by [id number] 00:00:00 Test Item Value Reference Range Interpretation Comments HIV 1/2 4TH gen, rflx conf (test non-reactive non-reactive code = HIV 1/2 4TH gen, rflx conf) [facility]ballAc[facility] hepatitis 2000 panel - Serum 2019-12-01 00:00:00 [...] (note) (test code = interpretation hepatitis C:) [facility]Neisseria gonorrhoeae DNA [Presence] in Urine by ANSLEY with probe [id number] 00:00:00 Test Item Value Reference Range Interpretation Comments gonorrhea, tma (test code = negative negative gonorrhea, tma) chlamydia, tma (test code = negative negative chlamydia, tma) [facility] test, [id number] 11:52:00 Test Item Value Reference Range Interpretation Comments HCG (test code = HCG) negative [facility] test, [id number] 11:52:00 Test Item Value Reference Range Interpretation Comments HCG (test code = HCG) negative [facility] test, [id number] 11:52:00 Test Item Value Reference Range Interpretation Comments HCG (test code = HCG) negative [facility] test, [id number] 11:52:00 Test Item Value Reference Range Interpretation Comments HCG (test code = HCG) negative [facility] test, [id number] 11:52:00 Test Item Value Reference Range Interpretation Comments HCG (test code = HCG) negative [facility] test, [id number] 11:52:00 Test Item Value Reference Range Interpretation Comments HCG (test code = HCG) negative [facility] test, [id number] 11:52:00 Test Item Value Reference Range Interpretation Comments HCG (test code = HCG) negative [facility]
[2020-09-26 17:26] LABS: Urine Blood 3+ (Negative); Urine Glucose Negative (Negative); Urine Protein Negative (Negative); Urine Specific Gravity >=1.030 (1.005-1.030); Urine pH 5.5 (5.0-7.0)
[2020-09-26 18:11] LABS: Absolute Lymphocytes (CBC) 0.2 K/uL (0.7-4.9); Basophils % 0.2 % (0-1.3); Hematocrit 37.6 % (36.0-45.0); Lymphocytes % 3.8 % (15.3-44.8); MPV 10.4 fL (7.6-11.3); RBC Red Blood Cell Count 4.38 M/uL (3.86-4.86)
[2020-09-26] MEDS ORDERED: PANTOPRAZOLE 40 MG INJ ONE (18:28)
[2020-09-26 18:31] LABS: ALT/SGPT 26 U/L (12-78); AST/SGOT 20 U/L (15-37); Albumin 3.8 g/dL (3.4-5.0); Alkaline Phosphatase 104 U/L (45-117); BUN Blood Urea Nitrogen 9 mg/dL (7-18); Bicarbonate 25 mmol/L (21-32); Bilirubin Direct 0.2 mg/dL (0-0.2); Bilirubin Total 0.7 mg/dL (0.2-1.0); Glucose Level 102 mg/dL (74-106); Lipase 49 U/L (73-393); Protein, Total 7.2 g/dL (6.4-8.2); Sodium Level 141 mmol/L (136-145); Troponin (Emerg Dept Use Only) < 0.02 ng/mL (0.0-0.045)
--- NOTE | 2020-09-26 18:45 | RAD REPORT ---
EXAM DESCRIPTION: US - Abdomen Exam Limited - 09/26/2020 6:21 pm CLINICAL HISTORY: Abd pain;Nausea / vomiting COMPARISON: Stone Protocol dated 04/08/2020 FINDINGS: Cholecystectomy versus gallbladder duct remnant measuring 18 millimeter. It is anechoic. N o adjacent fluid or wall thickening. No stones identified. Negative sonographic Fried's sign. The co mmon bile duct measures 4 millimeters and is normal. Cirrhotic liver morphology noted. IMPRESSION: Cholecystectomy versus gallbladder duct remnant, the latter is favored. Correlate with s urgical history. Negative for cholelithiasis, cholecystitis, or biliary ductal dilatation. Cirrhotic liver morphology.
--- NOTE | 2020-09-26 19:08 | RAD REPORT ---
EXAM DESCRIPTION: RAD - Chest Single View - 09/26/2020 7:00 pm CLINICAL HISTORY: COUGH COMPARISON: Chest Single View dated 09/04/2020; Chest Single View dated 08/20/2020; Chest Single View d ated 08/06/2020; Chest Single View dated 07/27/2020No comparisons FINDINGS: No evidence of edema or pneumonia. The heart size is upper limits of normal.No acute osseo us abnormality. No significant pleural effusions or pneumothorax. Sternotomy. Vascular coils overlie the thorax as well as a metallic stent. IMPRESSION: No acute cardiopulmonary disease.
[2020-09-26] MEDS ORDERED: ONDANSETRON 4 MG/2 ML VIAL ONE ×2 (19:16→20:19)
--- NOTE | 2020-09-26 19:30 | RAD REPORT ---
EXAM DESCRIPTION: CTAbdomen Pelvis W Contrast - 09/26/2020 7:15 pm CLINICAL HISTORY: Abdominal pain. Abd pain;Nausea / vomiting COMPARISON: Stone Protocol dated 04/08/2020 TECHNIQUE: Biphasic CT imaging of the abdomen and pelvis was performed with 100 ml non-ionic IV cont rast. All CT scans are performed using dose optimization technique as appropriate and may include automated exposure control or mA/KV adjustment according to patient size. FINDINGS: The lung bases are clear. Cirrhotic liver morphology. Nonspecific periportal edema. Small hypervascular focus in the left hepat ic lobe measures 7 millimeters. This was not identified on the prior CT which was noncontrast. Kidney s are within normal limits. Splenomegaly is present. No bowel obstruction is identified. Trace free f luid. Inflammatory changes in the right inguinal canal have improved. Normal appendix. No suspicious bony findings. IMPRESSION: No acute intra-abdominal or pelvic finding. Cirrhotic liver morphology with splenomegaly. Small hypervascular lesion in the left hepatic lobe is probably a flash fill hemangioma. It is not appreciated on the portal venous phase, only the arterial phase. With evidence of cirrhosis, the patient should likely be undergoing surveillance imaging for hepatocellular carcinoma. This area could be assessed on further surveillance imaging in 6-12 months.
[2020-09-26 19:52] LABS: Blood Morphology Comment NOT SEEN (NOT SEEN); Platelet Estimate DECR; White Blood Cell Scan OK (OK)
[2020-09-26 20:05] LABS: Urine Specific Gravity/Preg >1.030 (1.005-1.030)
--- NOTE | 2020-09-26 20:10 | EDPHYS ---
Physician Documentation [facility] Name: Taniya Hudson Age: 25 yrs Sex: Female : 1995 Arrival Date: 09/26/2020 Time: 16:31 Bed 6 Private MD: ED Physician Tyrone Valdes HPI: 09/26 18:02 This 25 yrs old Female presents to ER via Ambulatory with complaints of Chest rn pain. 18:03 The patient or guardian reports chest pain that is located primarily in the substernal rn area, epigastric area. The pain. The pain does not radiate. Associated signs and symptoms: Pertinent positives: nausea, vomiting, Pertinent negatives: lower extremity swelling, palpitations, syncope. The chest pain is described as burning. Duration: The patient or guardian reports a single episode, that is still ongoing. Modifying factors: The symptoms are alleviated by nothing. the symptoms are aggravated by nothing. Severity of pain: At its worst the pain was moderate in the emergency department the pain is unchanged. The patient has not experienced similar symptoms in the past. The patient has not recently seen a physician. Patient reports took her sertraline on an empty stomach just before noon, approximately 30 minutes later began with epigastric pain and chest pain, feels like burning, no relief with antacids. No recent cardiac problems. Denies shortness of breath/cough/fever. Says throughout while here. No known history of gallstones or chronic abdominal issues.. 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 - Social history:: Smoking status: Patient denies any tobacco usage or history of. - Family history:: not pertinent. - Hospitalizations: : No recent hospitalization is reported. ROS: 18:03 Constitutional: Negative for fever, chills, and weight loss, Eyes: Negative for injury, rn pain, redness, and discharge, ENT: Negative for injury, pain, and discharge, Neck: Negative for injury, pain, and swelling, Cardiovascular: Negative for palpitations, and edema, Respiratory: Negative for shortness of breath, cough, wheezing, and pleuritic chest pain, Abdomen/GI: Negative for diarrhea, and constipation, Back: Negative for injury and pain, : Negative for injury, bleeding, discharge, and swelling, MS/Extremity: Negative for injury and deformity, Skin: Negative for injury, rash, and discoloration, Neuro: Negative for headache, weakness, numbness, tingling, and seizure. Exam: 18:03 Constitutional: This is a well developed, well nourished patient who is awake, alert, rn and in no acute distress. Head/Face: Normocephalic, atraumatic. Eyes: Periorbital areas with no swelling, redness, or edema. Cardiovascular: Regular rate and rhythm. No pulse deficits. Respiratory: No increased work of breathing, no retractions or nasal flaring. Abdomen/GI: Soft, mild epigastric tenderness, no rebound, negative Fried Skin: Warm, dry MS/ Extremity: Pulses equal, no cyanosis. Neuro: Awake and alert, GCS 15 Vital Signs: 17:03 BP 108 / 55; Pulse 63; Resp 20; Temp 98.8(TE); Pulse Ox 95% on R/A; Weight 59.06 kg kg (R); Height 5 ft. 1 in. (154.94 cm); Pain 10/10; 18:53 BP 127 / 64; Pulse 69; Resp 16 S; Pulse Ox 95% on R/A; aa5 19:40 BP 150 / 69; Pulse 71; Resp 18 S; Pulse Ox 94% on R/A; ad5 17:03 Body Mass Index 24.60 (59.06 kg, 154.94 cm) kg MDM: 17:38 Patient medically screened. rn 18:14 ED course: Patient refuses GI cocktail. States throws up with any fluid or liquid.. rn 18:28 ED course: decontamination technician states cannot locate gallbladder, patient does not believe rn gallbladder has been removed. May be contracted. Will get CT abdomen and pelvis to further evaluate. 18:56 Transition of care: After a detail discussion of the patient's case, care is rn transferred to Gunner Ash MD. 20:08 Differential diagnosis: Cholelithiasis esophagitis, gastritis, gastroesophageal reflux ma2 disease (GERD). Data reviewed: vital signs, nurses notes. Counseling: I had a detailed discussion with the patient and/or guardian regarding: the historical points, exam findings, and any diagnostic results supporting the discharge/admit diagnosis, the presence of at least one elevated blood pressure reading (>120/80) during this emergency department visit, the need for outpatient follow up. 09/26 17:27 Order name: Urine Dipstick-Ancillary; Complete Time: 17:36 EDNY 09/26 17:33 Order name: Urine --Ancillary (enter results) bd 09/26 17:45 Order name: CBC with Diff rn 09/26 17:45 Order name: Basic Metabolic Panel rn 09/26 17:45 Order name: Troponin (emerg Dept Use Only) rn 09/26 17:45 Order name: CBC with Automated Diff; Complete Time: 19:55 EDNY 09/26 17:45 Order name: Basic Metabolic Panel; Complete Time: 18:33 EDNY 09/26 17:45 Order name: US Abdomen Limited; Complete Time: 19:55 rn 09/26 17:45 Order name: Troponin (Emerg Dept Use Only); Complete Time: 18:33 EDNY 09/26 17:45 Order name: LFT's rn 09/26 17:45 Order name: Lipase; Complete Time: 18:33 rn 09/26 17:46 Order name: Liver (Hepatic) Function; Complete Time: 18:33 EDNY 09/26 18:30 Order name: CT Abd/Pelvis - IV Contrast Only; Complete Time: 19:55 rn 09/26 19:52 Order name: CBC Smear Scan; Complete Time: 19:55 EDNY 09/26 17:45 Order name: IV Start; Complete Time: 18:09 rn 09/26 17:45 Order name: EKG; Complete Time: 17:45 rn 09/26 17:45 Order name: EKG - Nurse/Tech; Complete Time: 18:30 rn 09/26 18:34 Order name: XRAY Chest (1 view); Complete Time: 19:55 rn Administered Medications: 18:09 Drug: ProTONIX (pantoprazole) 40 mg Route: IVP; Site: right antecubital; aa5 18:30 Follow up: Response: No adverse reaction; Pain is decreased aa5 18:10 Not Given (Patient Refused; Pt reports she vomits with liquid medication, MD was aa5 notified. ): GI Cocktail without - (Maalox Suspension 30 ml, Lidocaine Liquid 2 % 15 ml) PO once 18:52 Drug: Zofran (Ondansetron) 4 mg Route: IVP; Site: right antecubital; aa5 19:00 Follow up: Response: No adverse reaction aa5 19:59 Drug: Zofran (Ondansetron) 4 mg Route: IVP; Site: right antecubital; ea 20:36 Follow up: Response: Nausea is decreased ea Disposition Summary: 09/26/20 20:09 Discharge Ordered Location: Home ma2 Condition: Stable ma2 Diagnosis - Upper abdominal pain, unspecified ma2 Followup: ma2 - With: Kranthi Rae MD - When: Tomorrow - Reason: If symptoms return, Continuance of care Discharge Instructions: - Discharge Summary Sheet ma2 - Abdominal Pain, Adult ma2 Forms: - Work release form ea - Medication Reconciliation Form ma2 - Thank You Letter ma2 - Antibiotic Education ma2 - Prescription Opioid Use ma2 Prescriptions: - Pepcid 20 mg Oral Tablet - take 1 tablet by ORAL route every 12 hours for 5 days; 10 tablet; Refills: 0, ma2 Product Selection Permitted - Zofran 4 mg Oral Tablet - take 1 tablet by ORAL route every 12 hours As needed; 6 tablet; Refills: 0, ma2 Product Selection Permitted - Diclofenac Sodium 75 mg Oral Tablet Sustained Release - take 1 tablet by ORAL route 2 times per day; 30 tablet; Refills: 0, Product ma2 Selection Permitted Signatures: Dispatcher [employer] EDTyrone Aparicio MD MD rn Calderon, Audri RN RN aa5 Veronica Bunch RN Gunner Yu ea, MD MD ma2 Abby Gutierrez, RN RN kg
--- NOTE | 2020-09-26 20:10 | ER ---
Nurse's Notes [facility] Name: Taniya Hudson Age: 25 yrs Sex: Female : 1995 Arrival Date: 09/26/2020 Time: 16:31 Bed 6 Private MD: Diagnosis: Upper abdominal pain, unspecified Presentation: 09/26 17:03 Chief complaint: Patient states: Chest burning starting at 1300. Pt was sitting down kg watching tv when the pain started. Took pepcid with no relief and two tums. Tums helped but then got worse. Pt has been nauseated but denies vomiting, diarrhea or fever. Coronavirus screen: Client denies travel out of the [place] in the last 14 days. At this time, unable to obtain information related to travel outside the [place] At this time, the client does not indicate any symptoms associated with coronavirus-19. Ebola Screen: Patient negative for fever greater than or equal to 101.5 degrees Fahrenheit, and additional compatible Ebola Virus Disease symptoms Patient denies exposure to infectious person. Patient denies travel to an Ebola-affected area in the 21 days before illness onset. Initial Sepsis Screen: Does the patient meet any 2 criteria? No. Patient's initial sepsis screen is negative. Does the patient have a suspected source of infection? No. Patient's initial sepsis screen is negative. Risk Assessment: Do you want to hurt yourself or someone else? Patient reports no desire to harm self or others. Onset of symptoms was September 26, 2020 at 13:00. 17:03 Method Of Arrival: Ambulatory kg 17:03 Acuity: CHUCKIE 3 kg Triage Assessment: 17:07 General: Appears in no apparent distress. Behavior is calm, cooperative, appropriate kg for age, quiet. Pain: Complains of pain in xiphoid area and mid-sternal area Pain currently is 10 out of 10 on a pain scale. at worst was 10 out of 10 on a pain scale. level that patient reports is acceptable is 7 out of 10 on a pain scale. 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 - Social history:: Smoking status: Patient denies any tobacco usage or history of. - Family history:: not pertinent. - Hospitalizations: : No recent hospitalization is reported. Screenin:06 Abuse screen: Denies threats or abuse. Denies injuries from another. Nutritional kg screening: No deficits noted. Tuberculosis screening: No symptoms or risk factors identified. Fall Risk None identified. Assessment: 17:50 General: Appears uncomfortable, Behavior is calm, cooperative. Pain: Complains of pain aa5 in mid-sternal area Pain currently is 10 out of 10 on a pain scale. Quality of pain is described as burning, Is continuous. Neuro: Level of Consciousness is awake, alert, obeys commands, Oriented to person, place, time, situation. Cardiovascular: Heart tones S1 S2 present Rhythm is regular. Respiratory: Reports cough Airway is patent Respiratory effort is even, unlabored, Respiratory pattern is regular, symmetrical. GI: Abdomen is round non-distended, Bowel sounds present X 4 quads. Abd is soft and non tender X 4 quads. Reports nausea, vomiting, Patient currently denies diarrhea. : No signs and/or symptoms were reported regarding the genitourinary system. EENT: No signs and/or symptoms were reported regarding the EENT system. Derm: Skin is pink, warm \T\ dry. Musculoskeletal: Range of motion: intact in all extremities. 18:05 Reassessment: US at bedside . aa5 18:52 Reassessment: Patient is alert, oriented x 3, equal unlabored respirations, skin aa5 warm/dry/pink. Pt reports she vomited twice . 19:39 Reassessment: Patient appears in no apparent distress at this time. Patient and/or ad5 family updated on plan of care and expected duration. Pain level reassessed. Patient is alert, oriented x 3, equal unlabored respirations, skin warm/dry/pink. 20:35 Reassessment: Patient and/or family updated on plan of care and expected duration. Pain ea level reassessed. Patient is alert, oriented x 3, equal unlabored respirations, skin warm/dry/pink. Discharge instruction given to patient verbalized the understanding of instruction. Pt left ED ambulatory tolerating well. Vital Signs: 17:03 BP 108 / 55; Pulse 63; Resp 20; Temp 98.8(TE); Pulse Ox 95% on R/A; Weight 59.06 kg kg (R); Height 5 ft. 1 in. (154.94 cm); Pain 10/10; 18:53 BP 127 / 64; Pulse 69; Resp 16 S; Pulse Ox 95% on R/A; aa5 19:40 BP 150 / 69; Pulse 71; Resp 18 S; Pulse Ox 94% on R/A; ad5 17:03 Body Mass Index 24.60 (59.06 kg, 154.94 cm) kg ED Course: 16:31 Patient arrived in ED. as 17:06 Triage completed. kg 17:06 Patient has correct armband on for positive identification. kg 17:07 Arm band placed on. kg 17:38 Tyrone Valdes MD is Attending Physician. rn 17:57 Jasmin Ramsey RN is Primary Nurse. aa5 18:00 Initial lab(s) drawn, by me, sent to lab. Inserted saline lock: 20 gauge in right aa5 antecubital area, using aseptic technique. Blood collected. 18:21 US Abdomen Limited In Process Unspecified. EDMS 18:31 EKG done, by ED staff, reviewed by Tyrone Valdes MD. em1 19:00 XRAY Chest (1 view) In Process Unspecified. EDMS 19:00 Report given to ANA Pérez and ANA Martin. aa5 19:16 CT Abd/Pelvis - IV Contrast Only In Process Unspecified. EDMS 20:09 Kranthi Rae MD is Referral Physician. ma2 20:34 No provider procedures requiring assistance completed. IV discontinued, intact, ea bleeding controlled, No redness/swelling at site. Pressure dressing applied. Administered Medications: 18:09 Drug: ProTONIX (pantoprazole) 40 mg Route: IVP; Site: right antecubital; aa5 18:30 Follow up: Response: No adverse reaction; Pain is decreased aa5 18:10 Not Given (Patient Refused; Pt reports she vomits with liquid medication, was aa5 notified. ): GI Cocktail without - (Maalox Suspension 30 ml, Lidocaine Liquid 2 % 15 ml) PO once 18:52 Drug: Zofran (Ondansetron) 4 mg Route: IVP; Site: right antecubital; aa5 19:00 Follow up: Response: No adverse reaction aa5 19:59 Drug: Zofran (Ondansetron) 4 mg Route: IVP; Site: right antecubital; ea 20:36 Follow up: Response: Nausea is decreased ea Outcome: 20:09 Discharge ordered by . kelley 20:35 Discharged to home ambulatory, with family. ea 20:35 Condition: stable 20:35 Discharge instructions given to patient, Instructed on discharge instructions, follow up and referral plans. medication usage, Demonstrated understanding of instructions, follow-up care, medications, Prescriptions given X 3. 20:36 Patient left the ED. ea Signatures: Dispatcher [employer] EDMS Aminata Mcknight Roman, MD MD rn Martinez, Eric emJasmin Todd RN RN aa5 Veronica Bunch RN Gunner Yu ea, MD MD ma2 Abby Gutierrez RN RN kg Davidson, Andrea ad5
--- NOTE | 2020-09-27 07:29 | EKG ---
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
[2020-09-27 15:22] VITALS: TEMP 98.8
[2020-09-27 15:26] VITALS: BP 150/69; O2SAT 94
== END 2020-09-26 20:36 | disposition home or self-care (01) ==
LOC: ER 16:29
DX: R10.13 Epigastric pain (principal); Z95.818 Presence of other cardiac implants and grafts
CPT/HCPCS: 36415; 71045; 74177; 76705; 80048; 80076; 81003; 81025; 83690; 84484; 85025; 93005; 96374; 96375; 99284; C9113; J2405; Q9967

== ENCOUNTER 2021-02-25 21:42 | Emergency (ER) | payer SELFPAY ==
--- OUTSIDE RECORDS SUMMARY | 2021-02-25 21:52 | XMS REPORT | Continuity of Care Document ---
:1995 Author Organization [facility] t Address [address] [place] [address] Care Team Providers Name Role Phone ANGELO Primary Care Physician Unavailable LEODAN Attending Clinician Unavailable Thomas Tubbs Attending Clinician Darcie RN, T Attending Clinician Unavailable [place] López Attending Clinician Dada Kessler MD Attending Clinician Margarito ACOSTA M Attending Clinician Unavailable Philip RIVAS Attending Clinician PHILIP Attending Clinician Unavailable Doctor Unassigned, Name Attending Clinician Unavailable LEODAN Admitting Clinician Unavailable PHILIP Admitting Clinician Unavailable Payers Payer Name Policy Type Policy Number Effective Date Expiration Date S oniel MEDICAID PENDING PENDING 2020 00:00:00 [place] [id number] WOMEN'S HEALTH PROGRAM (MEDICAID) Problems Condition Condition Condition Status Onset Resolution Last Treating Co mments Source Name Details Category Date Date Treatment Clinician Date Posttrauma Posttrauma Problem Active M atagor tic stress tic Stress 8 da disorder Disorder 00:00: [facility] Epigastric Epigastric Disease Active 2015-03 U nivers pain pain 1-17 ity of 00:00: [place] [facility] 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 9- ICD10 ity of 00:00: Diagnosis Term Medical Cover Stripper Branch Utility Cyanosis Cyanosis Disease Active Unive rs 9 ity of 00:00: [place] [facility] S/P Fontan S/P Fontan Disease Active U nivers procedure procedure 11-18 ity of 00:00: Medical Branch AI (aortic AI (aortic Disease Active U nivers incompeten incompeten 11-18 it y of ce) ce) 00:00: Medical Branch 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 00:00: Medical Branch 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 7 ity of 00:00: Medical Branch Allergies, Adverse Reactions, Alerts Allergy Allergy Status Severity Reaction(s) Onset Inactive Treating Comm ents Source Name Type Date Date Clinician NO KNOWN Drug Active Unknown-Cmnt Un ibrahima DRUG Class 6-08 ity of ALLERGIE 00:00: [place] S 00 Medical Branch No Known Propensi Active Unknown - Uni vers Drug ty to See comments 6-08 ity of Allergie adverse 00:00: [place] s reaction 00 Medical s Branch Social History Social Habit Start Date Stop Date Quantity Comments Source Exposure to Not sure [facility] SARS-CoV-2 [place] [facility] (event) Branch Sex Assigned At [facility] of [facility] Tobacco use and 2020-04-04 2020-04-04 Never used Universit y of exposure 00:00:00 00:00:00 [facility] Branch Alcohol intake 2020-04-04 2020-04-04 Current University of 00:00:00 00:00:00 non-drinker of [facility] alcohol Branch (finding) Smoking Status Start Date Stop Date Source Never smoker [facility] xa Medical Branch Medications Ordered Filled Start Stop Current Ordering Indication Dosage Frequency Signature Comments Components Source Medication Medication Date Date Medication? Clinician (SIG) Name Name levoFLOXaci 2020- No 500mg 500 mg, U nivers n 04-01 Oral, ity of (LEVAQUIN) 12:30: 11:22 ONCE, 1 [place] as tablet 500 00 :00 dose, [facility]i sukhwinder mg 04/01/20 at Branch 0630, ESTELLE
Re ason for Anti-Infec tive: Documented Infection< br>Documen denny Infection Site: Skin / Soft Tissue
Duration of Therapy: Other (see Comments) iohexol 2020- No 100mL 100 mL, Unive rs (OMNIPAQUE 04-01 Intravenou it y of 350 08:00: 07:49 s, ONCE, 1 [place] BULK-100 00 :00 dose, [facility] l mL) 04/01/20 at Branch injection 0200, 100 mL Routine ketorolac No 30mg 30 mg, Unive rs (TORADOL) 04-01 Slow IV ity of injection 08:00: 06:58 Push, [place] 30 mg 00 :00 ONCE, 1 Medical dose, Sun Branch 04/01/20 at 0200, ESTELLE
Fa culty member approving Restricted medication : Rodrigo BREWSTER acetaminoph 2020- No 1000mg 1,000 mg, Univers en 04-01 Oral, ity of (TYLENOL) 06:22: 06:27 ONCE, 1 [place] tablet [place] :00 dose, [facility] 1,000 mg 04/01/20 at [facility] h 0030, ESTELLE levoFLOXaci Yes [id number] 500mg Take 1 Univers n 04-01 tablet by ity of (LEVAQUIN) 00:00: mouth [place] 500 mg 00 every 24 Medical tablet (twenty-fo Branch ur) hours. levoFLOXaci Yes [id number] 500mg Take 1 Univers n 04-01 tablet by ity of (LEVAQUIN) 00:00: mouth [place] 500 mg 00 every 24 Medical tablet (twenty-fo Branch ur) hours. levoFLOXaci Yes [id number] 500mg Take 1 Univers n 04-01 tablet by ity of (LEVAQUIN) 00:00: mouth [place] 500 mg 00 every 24 Medical tablet (twenty-fo [place] ur) hours. enalapril 2020- Yes TAKE 1 Univer s 2.5 mg 1-02 TABLET BY ity of tablet 00:00: MOUTH ONCE [place] 00 DAILY IN [facility] MORNING AND 2 TABLETS IN THE EVENING enalapril 2020- Yes TAKE 1 Univer s 2.5 mg 1-02 TABLET BY ity of tablet 00:00: MOUTH ONCE [place] 00 DAILY IN Medical THE [place] MORNING AND 2 TABLETS IN THE EVENING enalapril 2019- Yes TAKE 1 Univer s 2.5 mg 1-02 TABLET BY ity of tablet 00:00: MOUTH ONCE [place] 00 DAILY IN [facility] THE [place] MORNING AND 2 TABLETS IN THE EVENING enalapril 2019- Yes TAKE 1 Univer s 2.5 mg 1-02 TABLET BY ity of tablet 00:00: MOUTH ONCE [place] 00 DAILY IN [facility] THE [place] MORNING AND 2 TABLETS IN THE EVENING enalapril 2019- Yes TAKE 1 Univer s 2.5 mg 1-02 TABLET BY ity of tablet 00:00: MOUTH ONCE [place] 00 DAILY IN [facility] MORNING AND 2 TABLETS IN THE EVENING enalapril 2019- Yes TAKE 1 Univer s 2.5 mg 1-02 TABLET BY ity of tablet 00:00: MOUTH ONCE [place] 00 DAILY IN [facility] THE [place] MORNING AND 2 TABLETS IN THE EVENING enalapril 2019- Yes TAKE 1 Univer s 2.5 mg 1-02 TABLET BY ity of tablet 00:00: MOUTH ONCE [place] 00 DAILY IN [facility] THE [place] MORNING AND 2 TABLETS IN THE EVENING enalapril 2019- Yes TAKE 1 Univer s 2.5 mg 1-02 TABLET BY ity of tablet 00:00: MOUTH ONCE [place] 00 DAILY IN [facility] MORNING AND 2 TABLETS IN THE EVENING enalapril 2019- Yes TAKE 1 Univer s 2.5 mg 1-02 TABLET BY ity of tablet 00:00: MOUTH ONCE [place] 00 DAILY IN [facility] THE [place] MORNING AND 2 TABLETS IN THE EVENING enalapril 2019- Yes TAKE 1 Univer s 2.5 mg 1-02 TABLET BY ity of tablet 00:00: MOUTH ONCE [place] 00 DAILY IN [facility] THE [place] MORNING AND 2 TABLETS IN THE EVENING enalapril 2019- Yes TAKE 1 Univer s 2.5 mg 1-02 TABLET BY ity of tablet 00:00: MOUTH ONCE [place] 00 DAILY IN [facility] MORNING AND 2 TABLETS IN THE EVENING ENALAPRIL 2020-0 Yes TAKE 1 Univer s 2.5 mg 7-24 TABLET BY ity of tablet 00:00: MOUTH ONCE [place] 00 DAILY IN [facility] MORNING AND 2 TABLETS IN THE EVENING ENALAPRIL 2020-0 Yes TAKE 1 Univer s 2.5 mg 7-24 TABLET BY ity of tablet 00:00: MOUTH ONCE [place] 00 DAILY IN [facility] MORNING AND 2 TABLETS IN THE EVENING ENALAPRIL 2020-0 2020- No TAKE 1 Unive rs 2.5 mg 7-24 11-02 TABLET BY ity of tablet 00:00: 00:00 M[place]TH [place]CE [place] [facility] MORNING AND 2 TABLETS IN THE EVENING aspirin 2020-0 Yes 81mg Take 81 mg Univ ers (BABY 6-18 by mouth ity of ASPIRIN) 81 08:22: [place]. [place] mg chewable 29 Medical tablet Branch ACETAMINOPH 2020-0 Yes Take by Un ibrahima EN (TYLENOL 6-18 mouth. ity of ORAL) 08:22: [place] [address] Medical Branch DM/PSEUDOEP 2020-0 Yes Take by Un [facility]rahima HED/ACETAMI 6-18 mouth. ity of NOPHEN 08:22: [place] ([address] DAYQUIL Branch ORAL) IBUPROFEN 2020-0 Yes Take by Univ ers ORAL 6-18 mouth. ity of 08:22: [place] [address] Medical Branch aspirin 2020-0 Yes 81mg Take 81 mg Univ ers (BABY 6-18 by mouth ity of ASPIRIN) 81 08:22: daily. [place] mg chewable 29 Medical tablet Branch ACETAMINOPH 2020-0 Yes Take by Un [facility] EN (TYLENOL 6-18 mouth. ity of ORAL) 08:22: [place] [address] Medical Branch DM/PSEUDOEP 2020-0 Yes Take by Un [facility] HED/ACETAMI 6-18 mouth. ity of NOPHEN 08:22: [place] ([place] [address] Medical DAYQUIL Branch ORAL) IBUPROFEN 2020-0 Yes Take by Univ ers ORAL 6-18 mouth. ity of 08:22: [place] [address] Medical Branch aspirin 2020-0 Yes 81mg Take 81 mg Univ ers (BABY 6-18 by mouth ity of ASPIRIN) 81 08:22: daily. [place] mg chewable 29 Medical tablet Branch ACETAMINOPH 2020-0 Yes Take by Un [facility] EN (TYLENOL 6-18 mouth. ity of ORAL) 08:22: [place] [address] Medical Branch DM/PSEUDOEP 2020-0 Yes Take by Un [facility]rahima HED/ACETAMI 6-18 mouth. ity of NOPHEN 08:22: [place] ([place] [address] Medical DAYQUIL Branch ORAL) IBUPROFEN 2020-0 Yes Take by Univ ers ORAL 6-18 mouth. ity of 08:22: [place] [address] Medical Branch aspirin 2020-0 Yes 81mg Take 81 mg Univ ers (BABY 6-18 by mouth ity of ASPIRIN) 81 08:22: daily. [place] mg chewable 29 Medical tablet Branch ACETAMINOPH 2020-0 Yes Take by Un [facility]ima EN (TYLENOL 6-18 mouth. ity of ORAL) 08:22: [place] [address] Medical Branch DM/PSEUDOEP 2020-0 Yes Take by Un ibrahima HED/ACETAMI 6-18 mouth. ity of NOPHEN 08:22: [place] ([place] [address] Medical DAYQUIL Branch ORAL) IBUPROFEN 2020-0 Yes Take by Univ ers ORAL 6-18 mouth. ity of 08:22: [place] [address] Medical Branch aspirin 2020-0 Yes 81mg Take 81 mg Univ ers (BABY 6-18 by mouth ity of ASPIRIN) 81 08:22: daily. [place] mg chewable 29 Medical tablet Branch ACETAMINOPH 2020-0 Yes Take by Un [facility] EN (TYLENOL 6-18 mouth. ity of ORAL) 08:22: [place] [address] Medical Branch DM/PSEUDOEP 2020-0 Yes Take by Un ibrahima HED/ACETAMI 6-18 mouth. ity of NOPHEN 08:22: [place] ([place] [address] Medical DAYQUIL Branch ORAL) IBUPROFEN 2020-0 Yes Take by Univ ers ORAL 6-18 mouth. ity of 08:22: [place] [address] Medical Branch aspirin 2020-0 Yes 81mg Take 81 mg Univ ers (BABY 6-18 by mouth ity of ASPIRIN) 81 08:22: daily. [place] mg chewable 29 Medical tablet Branch ACETAMINOPH 2020-0 Yes Take by Un [facility]rah[facility] EN (TYLENOL 6-18 mouth. ity of ORAL) 08:22: [place] [address] Medical Branch DM/PSEUDOEP 2020-0 Yes Take by Un ibrahima HED/ACETAMI 6-18 mouth. ity of NOPHEN 08:22: [place] ([place] [address] Medical DAYQUIL Branch ORAL) IBUPROFEN 2020-0 Yes Take by Univ ers ORAL 6-18 mouth. ity of 08:22: [place] [address] Medical Branch aspirin 2020-0 Yes 81mg Take 81 mg Univ ers (BABY 6-18 by mouth ity of ASPIRIN) 81 08:22: daily. [place] mg chewable 29 Medical tablet Branch ACETAMINOPH 2020-0 Yes Take by Un ib[facility]ima EN (TYLENOL 6-18 mouth. ity of ORAL) 08:22: [place] [address] Medical Branch DM/PSEUDOEP 2020-0 Yes Take by Un ibrahima HED/ACETAMI 6-18 mouth. ity of NOPHEN 08:22: [place] ([place] [address] Medical DAYQUIL Branch ORAL) IBUPROFEN 2020-0 Yes Take by Univ ers ORAL 6-18 mouth. ity of 08:22: [place] [address] Medical Branch aspirin 2020-0 Yes 81mg Take 81 mg Univ ers (BABY 6-18 by mouth ity of ASPIRIN) 81 08:22: daily. [place] mg chewable 29 Medical tablet Branch ACETAMINOPH 2020-0 Yes Take by Un ibrahima EN (TYLENOL 6-18 mouth. ity of ORAL) 08:22: [place] [address] Medical Branch DM/PSEUDOEP 2020-0 Yes Take by Un ibrahima HED/ACETAMI 6-18 mouth. ity of NOPHEN 08:22: [place] ([place] [address] Medical DAYQUIL Branch ORAL) IBUPROFEN 2020-0 Yes Take by Univ ers ORAL 6-18 mouth. ity of 08:22: [place] [address] Medical Branch aspirin 2020-0 Yes 81mg Take 81 mg Univ ers (BABY 6-18 by mouth ity of ASPIRIN) 81 08:22: daily. [place] mg chewable 29 Medical tablet Branch ACETAMINOPH 2020-0 Yes Take by Un [facility]rah[facility] EN (TYLENOL 6-18 mouth. ity of ORAL) 08:22: [place] [address] Medical Branch DM/PSEUDOEP 2020-0 Yes Take by Un ibrahima HED/ACETAMI 6-18 mouth. ity of NOPHEN 08:22: [place] ([place] [address] Medical DAYQUIL Branch ORAL) IBUPROFEN 2020-0 Yes Take by Univ ers ORAL 6-18 mouth. ity of 08:22: [place] [address] Medical Branch aspirin 2020-0 Yes 81mg Take 81 mg Univ ers (BABY 6-18 by mouth ity of ASPIRIN) 81 08:22: daily. [place] mg chewable 29 Medical tablet Branch ACETAMINOPH 2020-0 Yes Take by Un ibrahima EN (TYLENOL 6-18 mouth. ity of ORAL) 08:22: [place] [address] Medical Branch DM/PSEUDOEP 2020-0 Yes Take by Un ibrahima HED/ACETAMI 6-18 mouth. ity of NOPHEN 08:22: [place] ([place] [address] Medical DAYQUIL Branch ORAL) IBUPROFEN 2020-0 Yes Take by Univ ers ORAL 6-18 mouth. ity of 08:22: [place] [address] Medical Branch aspirin 2020-0 Yes 81mg Take 81 mg Univ ers (BABY 6-18 by mouth ity of ASPIRIN) 81 08:22: daily. [place] mg chewable 29 Medical tablet Branch ACETAMINOPH 2020-0 Yes Take by Un [facility] EN (TYLENOL 6-18 mouth. ity of ORAL) 08:22: [place] [address] Medical Branch DM/PSEUDOEP 2020-0 Yes Take by Un ibrahima HED/ACETAMI 6-18 mouth. ity of NOPHEN 08:22: [place] ([place] [address] Medical DAYQUIL Branch ORAL) IBUPROFEN 2020-0 Yes Take by Univ ers ORAL 6-18 mouth. ity of 08:22: [place] [address] Medical Branch aspirin 2020-0 Yes 81mg Take 81 mg Univ ers (BABY 6-18 by mouth ity of ASPIRIN) 81 08:22: daily. [place] mg chewable 29 Medical tablet Branch ACETAMINOPH 2020-0 Yes Take by Un ibrahima EN (TYLENOL 6-18 mouth. ity of ORAL) 08:22: [place] [address] Medical Branch DM/PSEUDOEP 2020-0 Yes Take by Un ibrahima HED/ACETAMI 6-18 mouth. ity of NOPHEN 08:22: [place] ([place] [address] Medical DAYQUIL Branch ORAL) IBUPROFEN 2020-0 Yes Take by Univ ers ORAL 6-18 mouth. ity of 08:22: [place] [address] Medical Branch aspirin 2020-0 Yes 81mg Take 81 mg Univ ers (BABY 6-18 by mouth ity of ASPIRIN) 81 08:22: daily. [place] mg chewable 29 Medical tablet Branch ACETAMINOPH 2020-0 Yes Take by Un ibrahima EN (TYLENOL 6-18 mouth. ity of ORAL) 08:22: [place] [address] Medical Branch DM/PSEUDOEP 2020-0 Yes Take by Un ibrahima HED/ACETAMI 6-18 mouth. ity of NOPHEN 08:22: [place] ([place] [address] Medical DAYQUIL Branch ORAL) IBUPROFEN 2020-0 Yes Take by Univ ers ORAL 6-18 mouth. ity of 08:22: [place] [address] Medical Branch aspirin 2020-0 Yes 81mg Take 81 mg Univ ers (BABY 6-18 by mouth ity of ASPIRIN) 81 08:22: daily. [place] mg chewable [place] tablet Branch ACETAMINOPH 2020-0 Yes Take by Un ibrahima EN (TYLENOL 6-18 mouth. ity of ORAL) 08:22: [place] [address] Medical Branch DM/PSEUDOEP 2020-0 Yes Take by Un ibrahima HED/ACETAMI 6-18 mouth. ity of NOPHEN 08:22: [place] ([place] [address] Medical DAYQUIL Branch ORAL) IBUPROFEN 2020-0 Yes Take by Univ ers ORAL 6-18 mouth. ity of 08:22: [place] [address] Medical Branch ibuprofen 2020-0 Yes [id number] 600mg Take 1 Univers 600 mg 6-18 [id number] tablet by ity of tablet 00:00: mouth [address] [place] [address] ([facility]) Medical times Branch daily with meals. ibuprofen 2020-0 Yes [id number] 600mg Take 1 Univers 600 mg 6-18 [id number] tablet by ity of tablet 00:00: mouth [address] [place] [address] ([facility]) Medical times Branch daily with meals. ibuprofen 2020-0 Yes [id number] 600mg Take 1 Univers 600 mg 6-18 [id number] tablet by ity of tablet 00:00: mouth [address] [place] [address] ([facility]) Medical times Branch daily with meals. ibuprofen 2020-0 Yes [id number] 600mg Take 1 Univers 600 mg 6-18 [id number] tablet by ity of tablet 00:00: mouth [address] [place] [address] ([facility]) Medical times Branch daily with meals. ibuprofen 2020-0 Yes [id number] 600mg Take 1 Univers 600 mg 6-18 [id number] tablet by ity of tablet 00:00: mouth [address] [place] [address] ([facility]) Medical times Branch daily with meals. ibuprofen 2020-0 Yes [id number] 600mg Take 1 Univers 600 mg 6-18 [id number] tablet by ity of tablet 00:00: mouth [address] [place] [address] ([facility]) Medical times Branch daily with meals. ibuprofen 2020-0 Yes [id number] 600mg Take 1 Univers 600 mg 6-18 [id number] tablet by ity of tablet 00:00: mouth 3 [place] (three) Medical times Branch daily with meals. ibuprofen 2020-0 Yes [id number] 600mg Take 1 Univers 600 mg 6-18 [id number] tablet by ity of tablet 00:00: mouth (three) Medical times Branch daily with meals. ibuprofen 2020-0 Yes [id number] 600mg Take 1 Univers 600 mg 6-18 [id number] tablet by ity of tablet 00:00: mouth (three) Medical times Branch daily with meals. ibuprofen 2020-0 Yes [id number] 600mg Take 1 Univers 600 mg 6-18 [id number] tablet by ity of tablet 00:00: mouth (three) Medical times Branch daily with meals. ibuprofen 2020-0 Yes [id number] 600mg Take 1 Univers 600 mg 6-18 [id number] tablet by ity of tablet 00:00: mouth (three) Medical times Branch daily with meals. ibuprofen 2020-0 Yes [id number] 600mg Take 1 Univers 600 mg 6-18 [id number] tablet by ity of tablet 00:00: mouth (three) Medical times Branch daily with meals. ibuprofen 2020-0 Yes [id number] 600mg Take 1 [facility] 600 mg 6-18 [id number] tablet by ity of tablet 00:00: mouth (three) Medical times Branch daily with meals. ibuprofen 2020-0 Yes [id number] 600mg Take 1 Univers 600 mg 6-18 [id number] tablet by ity of tablet 00:00: mouth (three) Medical times Branch daily with meals. ENALAPRIL 2020-0 Yes TAKE 1 Univer s 2.5 mg 6-15 TABLET BY ity of tablet 00:00: MOUTH ONCE 00 DAILY IN Medical THE Branch MORNING AND 2 TABLETS IN THE EVENING ENALAPRIL 2020-0 Yes TAKE 1 Univer s 2.5 mg 6-15 TABLET BY ity of tablet 00:00: MOUTH ONCE 00 DAILY IN Medical THE Branch MORNING AND 2 TABLETS IN THE EVENING ENALAPRIL 2020-0 Yes TAKE 1 Univer s 2.5 mg 6-15 TABLET BY ity of tablet 00:00: MOUTH ONCE 00 DAILY IN Medical THE Branch MORNING AND 2 TABLETS IN THE EVENING ENALAPRIL 2020-0 2020- No TAKE 1 Unive rs 2.5 mg 6-15 07-24 TABLET BY ity of tablet 00:00: 00:00 [place]CE [place] [facility] THE [place] MORNING AND 2 TABLETS IN THE EVENING ENALAPRIL Yes TAKE 1 Univer s 2.5 mg 5-26 TABLET BY ity of tablet 00:00: MOUTH ONCE [place] 00 DAILY IN Medical THE Branch MORNING AND 2 IN THE EVENING ENALAPRIL 2020- No TAKE 1 Unive rs 2.5 mg 5-26 06-15 TABLET BY ity of tablet 00:00: 00:00 [place]TH [place]CE [place] [facility] THE Branch MORNING AND 2 IN THE EVENING ENALAPRIL Yes TAKE 1 Univer s 2.5 mg 4-29 TABLET BY ity of tablet 00:00: MOUTH ONCE [place] 00 DAILY IN [facility] THE Branch MORNING AND 2 IN THE EVENING ENALAPRIL 2020- No TAKE 1 Unive rs 2.5 mg 4-29 05-26 TABLET BY ity of tablet 00:00: 00:00 [place]TH [place]CE [place] 00 [place] IN [facility] THE Branch MORNING AND 2 IN THE EVENING ENALAPRIL Yes TAKE 1 Univer s 2.5 mg 3-30 TABLET BY ity of tablet 00:00: MOUTH ONCE [place] 00 DAILY IN [facility] THE [place] MORNING AND 2 IN THE EVENING ENALAPRIL 2020- No TAKE 1 Unive rs 2.5 mg 3-30 04-29 TABLET BY ity of tablet 00:00: 00:00 M[place]TH [place]CE [place] 00 [place] [facility] THE [place] MORNING AND 2 IN THE EVENING ENALAPRIL Yes TAKE 1 Univer s 2.5 mg 8-28 TABLET BY ity of tablet 00:00: MOUTH ONCE [place] 00 DAILY IN [facility] THE [place] MORNING AND 2 IN THE EVENING ENALAPRIL 2020- No TAKE 1 Unive rs 2.5 mg 8-28 03-30 TABLET BY ity of tablet 00:00: 00:00 M[place]TH [place]CE [place] [facility] THE [place] MORNING AND 2 IN THE EVENING phenazopyri Yes [id number] 200mg Take 1 Univers dine 200 mg 3-23 tablet by ity of tablet 00:00: mouth 3 [place] 00 (three) [facility] daily. phenazopyri 2019- Yes [id number] 200mg Take 1 Univers dine 200 mg 3-23 tablet by ity of tablet 00:00: mouth 3 (three) Medical times Branch daily. phenazopyri 2018- Yes [id number] 200mg Take 1 Univers dine 200 mg 3-23 tablet by ity of tablet 00:00: mouth 3 (three) Medical times Branch daily. phenazopyri 2018- Yes [id number] 200mg Take 1 Univers dine 200 mg 3-23 tablet by ity of tablet 00:00: mouth (three) Medical times Branch daily. phenazopyri Yes [id number] 200mg Take 1 Univers dine 200 mg 3-23 tablet by ity of tablet 00:00: mouth (three) Medical times Branch daily. phenazopyri Yes [id number] 200mg Take 1 Univers dine 200 mg 3-23 tablet by ity of tablet 00:00: mouth (three) Medical times Branch daily. phenazopyri Yes [id number] 200mg Take 1 Univers dine 200 mg 3-23 tablet by ity of tablet 00:00: mouth (three) Medical times Branch daily. phenazopyri Yes [id number] 200mg Take 1 Univers dine 200 mg 3-23 tablet by ity of tablet 00:00: mouth (three) Medical times Branch daily. phenazopyri Yes [id number] 200mg Take 1 Univers dine 200 mg 3-23 tablet by ity of tablet 00:00: mouth (three) Medical times Branch daily. phenazopyri Yes [id number] 200mg Take 1 Univers dine 200 mg 3-23 tablet by ity of tablet 00:00: mouth (three) Medical times Branch daily. phenazopyri 2018- Yes [id number] 200mg Take 1 Univers dine 200 mg 3-23 tablet by ity of tablet 00:00: mouth (three) Medical times Branch daily. phenazopyri 2018-0 Yes [id number] 200mg Take 1 Univers dine 200 mg 3-23 tablet by ity of tablet 00:00: mouth 3 (three) Medical times Branch daily. phenazopyri 2018- Yes [id number] 200mg Take 1 Univers dine 200 mg 3-23 tablet by ity of tablet 00:00: mouth 3 00 (three) Medical times Branch daily. phenazopyri Yes [id number] 200mg Take 1 Univers dine 200 mg 3-23 tablet by ity of tablet 00:00: mouth 3 (three) Medical times Branch daily. phenazopyri 2018- Yes [id number] 200mg Take 1 Univers dine 200 mg 3-23 tablet by ity of tablet 00:00: mouth 3 (three) Medical times Branch daily. phenazopyri Yes [id number] 200mg Take 1 Univers dine 200 mg 3-23 tablet by ity of tablet 00:00: mouth 3 (three) Medical times Branch daily. phenazopyri Yes [id number] 200mg Take 1 Univers dine 200 mg 3-23 tablet by ity of tablet 00:00: mouth 3 (three) Medical times Branch daily. phenazopyri Yes [id number] 200mg Take 1 Univers dine 200 mg 3-23 tablet by ity of tablet 00:00: mouth 3 (three) Medical times Branch daily. phenazopyri Yes [id number] 200mg Take 1 Univers dine 200 mg 3-23 tablet by ity of tablet 00:00: mouth 3 (three) Medical times Branch daily. phenazopyri Yes [id number] 200mg Take 1 Univers dine 200 mg 3-23 tablet by ity of tablet 00:00: mouth 3 (three) Medical times Branch daily. ENALAPRIL 2019- No TAKE 1 Unive rs 2.5 mg 04-01 TABLET BY ity of tablet 00:00: 00:00 [place]CE [place] IN Medical THE Branch MORNING AND 2 IN THE EVENING ENALAPRIL 2016-03 Yes TAKE ONE Univ ers 2.5 mg 0-12 TABLET BY ity of tablet 00:00: MOUTH ONCE [place] 00 DAILY IN Medical THE Branch MORNING AND TWO IN THE EVENING ENALAPRIL 2016-03 Yes TAKE ONE Univ ers 2.5 mg 0-12 TABLET BY ity of tablet 00:00: MOUTH ONCE 00 DAILY IN Medical THE Branch MORNING AND TWO IN THE EVENING ENALAPRIL 2016-03 Yes TAKE ONE Univ ers 2.5 mg 0-12 TABLET BY ity of tablet 00:00: MOUTH ONCE [place] 00 DAILY IN Medical THE Branch MORNING AND TWO IN THE EVENING ENALAPRIL 2016-03 Yes TAKE ONE Univ ers 2.5 mg 0-12 TABLET BY ity of tablet 00:00: MOUTH ONCE [place] 00 DAILY IN Medical THE Branch MORNING AND TWO IN THE EVENING ENALAPRIL 2016-03 Yes TAKE ONE Univ ers 2.5 mg 0-12 TABLET BY ity of tablet 00:00: MOUTH ONCE [place] 00 DAILY IN Medical THE Branch MORNING AND TWO IN THE EVENING ENALAPRIL 2016-03 Yes TAKE ONE Univ ers 2.5 mg 0-12 TABLET BY ity of tablet 00:00: MOUTH ONCE [place] 00 DAILY IN Medical THE Branch MORNING AND TWO IN THE EVENING ENALAPRIL 2016-03 Yes TAKE ONE Univ ers 2.5 mg 0-12 TABLET BY ity of tablet 00:00: MOUTH ONCE [place] 00 DAILY IN Medical THE Branch MORNING AND TWO IN THE EVENING ENALAPRIL 2016-03 Yes TAKE ONE Univ ers 2.5 mg 0-12 TABLET BY ity of tablet 00:00: MOUTH ONCE [place] 00 DAILY IN Medical THE Branch MORNING AND TWO IN THE EVENING ENALAPRIL 2016-03 Yes TAKE ONE Univ ers 2.5 mg 0-12 TABLET BY ity of tablet 00:00: MOUTH ONCE [place] 00 DAILY IN Medical THE Branch MORNING AND TWO IN THE EVENING ENALAPRIL 2016-03 Yes TAKE ONE Univ ers 2.5 mg 0-12 TABLET BY ity of tablet 00:00: MOUTH ONCE [place] 00 DAILY IN Medical THE Branch MORNING AND TWO IN THE EVENING ENALAPRIL 2016-03 Yes TAKE ONE Univ ers 2.5 mg 0-12 TABLET BY ity of tablet 00:00: MOUTH ONCE [place] 00 DAILY IN Medical THE Branch MORNING AND TWO IN THE EVENING ENALAPRIL 2016-03 Yes TAKE ONE Univ ers 2.5 mg 0-12 TABLET BY ity of tablet 00:00: MOUTH ONCE [place] 00 DAILY IN Medical THE Branch MORNING AND TWO IN THE EVENING ENALAPRIL 2016-03 Yes TAKE ONE Univ ers 2.5 mg 0-12 TABLET BY ity of tablet 00:00: MOUTH ONCE [place] 00 DAILY IN Medical THE Branch MORNING AND TWO IN THE EVENING ENALAPRIL 2016-03 Yes TAKE ONE Univ ers 2.5 mg 0-12 TABLET BY ity of tablet 00:00: MOUTH ONCE [place] 00 DAILY IN [facility] THE Branch MORNING AND TWO IN THE EVENING ENALAPRIL 2016-03 Yes TAKE ONE Univ ers 2.5 mg 0-12 TABLET BY ity of tablet 00:00: MOUTH ONCE [place] 00 DAILY IN Medical THE Branch MORNING AND TWO IN THE EVENING ENALAPRIL 2016-03 Yes TAKE ONE Univ ers 2.5 mg 0-12 TABLET BY ity of tablet 00:00: MOUTH ONCE [place] 00 DAILY IN Medical THE Branch MORNING AND TWO IN THE EVENING ENALAPRIL 2016-03 Yes TAKE ONE Univ ers 2.5 mg 0-12 TABLET BY ity of tablet 00:00: MOUTH ONCE [place] 00 DAILY IN Medical THE Branch MORNING AND TWO IN THE EVENING ENALAPRIL 2016-03 Yes TAKE ONE Univ ers 2.5 mg 0-12 TABLET BY ity of tablet 00:00: MOUTH ONCE [place] 00 DAILY IN Medical THE Branch MORNING AND TWO IN THE EVENING ENALAPRIL 2016-03 Yes TAKE ONE Univ ers 2.5 mg 0-12 TABLET BY ity of tablet 00:00: MOUTH ONCE [place] 00 DAILY IN [facility] THE Branch MORNING AND TWO IN THE EVENING ENALAPRIL 2016-03 Yes TAKE ONE Univ ers 2.5 mg 0-12 TABLET BY ity of tablet 00:00: MOUTH ONCE [place] 00 DAILY IN [facility] THE Branch MORNING AND TWO IN THE EVENING aspirin Yes 81mg Take 81 mg Univ ers (BABY 3-08 by mouth ity of ASPIRIN) 81 21:21: [place] che[place] 23 [facility] tablet Branch ACETAMINOPH Yes Take by [facility] EN (TYLENOL 3-08 mouth. ity of ORAL) 21:21: [place] 23 Medical Branch DM/PSEUDOEP 2016- Yes Take by [facility] HED/ACETAMI 3-08 mouth. ity of NOPHEN 21:21: [place] (VICAZ 23 Medical DAYQUIL Branch ORAL) IBUPROFEN Yes Take by Univ ers ORAL 3-08 mouth. ity of 21:21: [place] 23 Medical Branch aspirin 2016- Yes 81mg Take 81 mg Univ ers (BABY 3-08 by mouth ity of ASPIRIN) 81 21:21: [place] che[place] 23 [place] tablet Branch ACETAMINOPH Yes Take by [facility] EN (TYLENOL 3-08 mouth. ity of ORAL) 21:21: [place] 23 Medical Branch aspirin 2017-0 Yes 81mg Take 81 mg Univ ers (BABY 3-08 by mouth ity of ASPIRIN) 81 21:21: [place]. [place] che[place] 23 [facility] tablet Branch ACETAMINOPH 2017-0 Yes Take by [facility] EN (TYLENOL 3-08 mouth. ity of ORAL) 21:21: [place] [id number] Medical Branch DM/PSEUDOEP 2017- Yes Take by [facility] HED/ACETAMI 3-08 mouth. ity of NOPHEN 21:21: [place] ([place] [address] Medical DAYQUIL Branch ORAL) IBUPROFEN 2016-0 Yes Take by Univ ers ORAL 3-08 mouth. ity of 21:21: [place] [address] Medical Branch DM/PSEUDOEP 2017- Yes Take by [facility] HED/ACETAMI 3-08 mouth. ity of NOPHEN 21:21: [place] ([place] [address] Medical DAYQUIL Branch ORAL) IBUPROFEN Yes Take by Univ ers ORAL 3-08 mouth. ity of 21:21: [address] Branch aspirin 2016- Yes 81mg Take 81 mg Univ ers (BABY 3-08 by mouth ity of ASPIRIN) 81 21:21: [place] che[place] 23 Medical tablet Branch ACETAMINOPH Yes Take by [facility] EN (TYLENOL 3-08 mouth. ity of ORAL) 21:21: [address] Branch DM/PSEUDOEP 2016- Yes Take by [facility] HED/ACETAMI 3-08 mouth. ity of NOPHEN 21:21: [place] ([place] [address] Medical DAYQUIL Branch ORAL) IBUPROFEN 2016- Yes Take by Univ ers ORAL 3-08 mouth. ity of 21:21: [address] Branch aspirin 2017-0 Yes 81mg Take 81 mg Univ ers (BABY 3-08 by mouth ity of ASPIRIN) 81 21:21: [place]. [place] che[place] 23 Medical tablet Branch ACETAMINOPH 2017-0 Yes Take by [facility] EN (TYLENOL 3-08 mouth. ity of ORAL) 21:21: [place] [address] Medical Branch DM/PSEUDOEP 2017-0 Yes Take by [facility] HED/ACETAMI 3-08 mouth. ity of NOPHEN 21:21: [place] ([place] [address] Medical DAYQUIL Branch ORAL) IBUPROFEN 2017-0 Yes Take by Univ ers ORAL 3-08 mouth. ity of 21:21: [place] Medical Branch aspirin 2016- Yes 81mg Take 81 mg Univ ers (BABY 3-08 by mouth ity of ASPIRIN) 81 21:21: [place]. [place] che[place] 23 Medical tablet Branch ACETAMINOPH Yes Take by [facility] EN (TYLENOL 3-08 mouth. ity of ORAL) 21:21: [place] 23 Medical Branch DM/PSEUDOEP 2016- Yes Take by [facility] HED/ACETAMI 3-08 mouth. ity of NOPHEN 21:21: [place] (VICKS 23 Medical DAYQUIL Branch ORAL) IBUPROFEN Yes Take by Univ ers ORAL 3-08 mouth. ity of 21:21: [place] Medical Branch SERTraline Yes [id number] TAKE ONE Univers 50 mg 3-02 TABLET BY ity of tablet 00:00: MOUTH [place] 00 DAILY FOR Medical 30 DAYS. Branch SERTraline Yes [id number] TAKE ONE Univers 50 mg 3-02 TABLET BY ity of tablet 00:00: MOUTH [place] 00 DAILY FOR Medical 30 DAYS. Branch SERTraline Yes [id number] TAKE ONE Univers 50 mg 3-02 TABLET BY ity of tablet 00:00: MOUTH [place] 00 DAILY FOR Medical 30 DAYS. Branch SERTraline Yes [id number] TAKE ONE Univers 50 mg 3-02 TABLET BY ity of tablet 00:00: MOUTH [place] 00 DAILY FOR Medical 30 DAYS. Branch SERTraline Yes [id number] TAKE ONE Univers 50 mg 3-02 TABLET BY ity of tablet 00:00: MOUTH [place] 00 DAILY FOR Medical 30 DAYS. Branch SERTraline Yes [id number] TAKE ONE Univers 50 mg 3-02 TABLET BY ity of tablet 00:00: MOUTH [place] 00 DAILY FOR Medical 30 DAYS. Branch SERTraline Yes [id number] TAKE ONE Univers 50 mg 3-02 TABLET BY ity of tablet 00:00: MOUTH [place] 00 DAILY FOR Medical 30 DAYS. Branch SERTraline Yes [id number] TAKE ONE Univers 50 mg 3-02 TABLET BY ity of tablet 00:00: MOUTH [place] 00 DAILY FOR Medical 30 DAYS. Branch SERTraline Yes [id number] TAKE ONE Univers 50 mg 3-02 TABLET BY ity of tablet 00:00: MOUTH [place] 00 DAILY FOR Medical 30 DAYS. Branch SERTraline Yes [id number] TAKE ONE Univers 50 mg 3-02 TABLET BY ity of tablet 00:00: MOUTH [place] 00 DAILY FOR Medical 30 DAYS. [place] SERTraline Yes [id number] TAKE ONE Univers 50 mg 3-02 TABLET BY ity of tablet 00:00: MOUTH [place] 00 DAILY FOR Medical 30 DAYS. [place] SERTraline Yes [id number] TAKE ONE Univers 50 mg 3-02 TABLET BY ity of tablet 00:00: MOUTH [place] 00 DAILY FOR Medical 30 DAYS. [place] SERTraline Yes [id number] TAKE ONE Univers 50 mg 3-02 TABLET BY ity of tablet 00:00: MOUTH [place] 00 DAILY FOR Medical 30 DAYS. [place] SERTraline Yes [id number] TAKE ONE Univers 50 mg 3-02 TABLET BY ity of tablet 00:00: MOUTH [place] 00 DAILY FOR Medical 30 DAYS. [place] SERTraline Yes [id number] TAKE ONE Univers 50 mg 3-02 TABLET BY ity of tablet 00:00: MOUTH [place] 00 DAILY FOR Medical 30 DAYS. [place] SERTraline Yes [id number] TAKE ONE Univers 50 mg 3-02 TABLET BY ity of tablet 00:00: MOUTH [place] 00 DAILY FOR Medical 30 DAYS. [place] SERTraline Yes [id number] TAKE ONE Univers 50 mg 3-02 TABLET BY ity of tablet 00:00: MOUTH [place] 00 DAILY FOR Medical 30 DAYS. [place] SERTraline Yes [id number] TAKE ONE Univers 50 mg 3-02 TABLET BY ity of tablet 00:00: MOUTH [place] 00 DAILY FOR Medical 30 DAYS. [place] SERTraline Yes [id number] TAKE ONE Univers 50 mg 3-02 TABLET BY ity of tablet 00:00: MOUTH [place] 00 DAILY FOR Medical 30 DAYS. [place] SERTraline Yes [id number] TAKE ONE Univers 50 mg 3-02 TABLET BY ity of tablet 00:00: MOUTH [place] 00 DAILY FOR Medical 30 DAYS. [place] Asprin Ec Asprin Ec No 1 Q1D [...] mg capsule mg capsule mg capsule da Take 1 Take 1 Take 1 [facility] by capsule by capsule by al mouth once mouth once mouth once Health daily at daily at daily at Out reac bedtime bedtime bedtime h Program prazosin 2 prazosin 2 No 1capsul Q1D prazosin 2 [place] mg capsule mg capsule e(s) mg capsule da Take 1 Take 1 Take 1 [facility] capsule capsule capsule al every day every day every day Health by oral by oral by oral Outrea c route at route at route at h bedtime for bedtime for bedtime Program 30 days. 30 days. for 30 days. sertraline sertraline No sertraline [place] 100 mg [...] Source Name Name influenza, influenza, 2019-11-30 Completed [place] injectable, injectable, 11:22:00 [facility] quad[facility]alent[facility] quadrivalent, Outreach [facility] preservative free preservative free Tdap Tdap 2019-11-30 Completed [place] 11:21:00 [facility] Influenza Virus 2015-12-05 Completed Universit y of Vaccine Quad IM 00:00:00 [facility] Multi-dose 6+ MO Branch Meningococcal B, OMV 2015-12-05 Completed Univ ersity of 00:00:00 [facility] Meningococcal B, OMV 2015-12-05 Completed Univ ersity of 00:00:00 [facility] Influenza Virus 2015-12-05 Completed Universit y of Vaccine Quad IM 3+ 00:00:00 [facility] Influenza Virus 2015-12-05 Completed Universit y of Vaccine Quad IM 00:00:00 [place] [facility] ical Multi-dose 6+ MO Branch Meningococcal B, OMV 2015-12-05 Completed Univ ersity of 00:00:00 [facility] Meningococcal B, OMV 2015-12-05 Completed Univ ersity of 00:00:00 [facility] Influenza Virus 2015-12-05 Completed Universit y of Vaccine Quad IM 3+ 00:00:00 [facility] ER Influenza Virus 2015-12-05 Completed Universit y of Vaccine Quad IM 00:00:00 [place] Med ical Multi-dose 6+ MO Branch Meningococcal B, OMV 2015-12-05 Completed Univ ersity of 00:00:00 [facility] Meningococcal B, OMV 2015-12-05 Completed Univ ersity of 00:00:00 [facility] Influenza Virus 2015-12-05 Completed Universit y of Vaccine Quad IM 3+ 00:00:00 [facility] ER Influenza Virus 2015-12-05 Completed Universit y of Vaccine Quad IM 00:00:00 [place] Med ical Multi-dose 6+ MO Branch Meningococcal B, OMV 2015-12-05 Completed Univ ersity of 00:00:00 [facility] Meningococcal B, OMV 2015-12-05 Completed Univ ersity of 00:00:00 [facility] Influenza Virus 2015-12-05 Completed Universit y of Vaccine Quad IM 3+ 00:00:00 [facility] ER Influenza Virus 2015-12-05 Completed Universit y of Vaccine Quad IM 00:00:00 [place] Med ical Multi-dose 6+ MO Branch Meningococcal B, OMV 2015-12-05 Completed Univ ersity of 00:00:00 [facility] Meningococcal B, OMV 2015-12-05 Completed Univ ersity of 00:00:00 [facility] Influenza Virus 2015-12-05 Completed Universit y of Vaccine Quad IM 3+ 00:00:00 [facility] ER Meningococcal B, OMV 2015-12-05 Completed Univ ersity of 00:00:00 [facility] Influenza Virus 2015-12-05 Completed Universit y of Vaccine Quad IM 3+ 00:00:00 [facility] ER Influenza Virus 2015-12-05 Completed Universit y of Vaccine Quad IM 00:00:00 [place] Med ical Multi-dose 6+ MO Branch Meningococcal B, OMV 2015-12-05 Completed Univ ersity of 00:00:00 [facility] Meningococcal B, OMV 2015-12-05 Completed Univ ersity of 00:00:00 [facility] Influenza Virus 2015-12-05 Completed Universit y of Vaccine Quad IM 3+ 00:00:00 [facility] ER Influenza Virus 2015-12-05 Completed Universit y of Vaccine Quad IM 00:00:00 [place] Med ical Multi-dose 6+ MO Branch Meningococcal B, OMV 2015-12-05 Completed Univ ersity of 00:00:00 [facility] Meningococcal B, OMV 2015-12-05 Completed Univ ersity of 00:00:00 [facility] Influenza Virus 2015-12-05 Completed Universit y of Vaccine Quad IM 3+ 00:00:00 [facility] ER Influenza Virus 2015-12-05 Completed Universit y of Vaccine Quad IM 00:00:00 [place] Med ical Multi-dose 6+ MO Branch Meningococcal B, OMV 2015-12-05 Completed Univ ersity of 00:00:00 [facility] Meningococcal B, OMV 2015-12-05 Completed Univ ersity of 00:00:00 [facility] Influenza Virus 2015-12-05 Completed Universit y of Vaccine Quad IM 3+ 00:00:00 [facility] ER Influenza Virus 2015-12-05 Completed Universit y of Vaccine Quad IM 00:00:00 [place] Med ical Multi-dose 6+ MO Branch Meningococcal B, OMV 2015-12-05 Completed Univ ersity of 00:00:00 [facility] Meningococcal B, OMV 2015-12-05 Completed Univ ersity of 00:00:00 [facility] Influenza Virus 2015-12-05 Completed Universit y of Vaccine Quad IM 3+ 00:00:00 [facility] ER Influenza Virus 2015-12-05 Completed Universit y of Vaccine Quad IM 00:00:00 [place] Med ical Multi-dose 6+ MO Branch Meningococcal B, OMV 2015-12-05 Completed Univ ersity of 00:00:00 [facility] Influenza Virus 2015-12-05 Completed Universit y of Vaccine Quad IM 00:00:00 [place] Med ical Multi-dose 6+ MO Branch Meningococcal B, OMV 2015-12-05 Completed Univ ersity of 00:00:00 [facility] Influenza Virus 2015-12-05 Completed Universit y of Vaccine Quad IM 3+ 00:00:00 [facility] ER Meningococcal B, OMV 2015-12-05 Completed Univ ersity of 00:00:00 [facility] Influenza Virus 2015-12-05 Completed Universit y of Vaccine Quad IM 00:00:00 [place] Med ical Multi-dose 6+ MO Branch Meningococcal B, OMV 2015-12-05 Completed Univ ersity of 00:00:00 [facility] Meningococcal B, OMV 2015-12-05 Completed Univ ersity of 00:00:00 [facility] Influenza Virus 2015-12-05 Completed Universit y of Vaccine Quad IM 3+ 00:00:00 [facility] ER Influenza Virus 2015-12-05 Completed Universit y of Vaccine Quad IM 00:00:00 [place] Med ical Multi-dose 6+ MO Branch Meningococcal B, OMV 2015-12-05 Completed Univ ersity of 00:00:00 [facility] Meningococcal B, OMV 2015-12-05 Completed Univ ersity of 00:00:00 [facility] Influenza Virus 2015-12-05 Completed Universit y of Vaccine Quad IM 3+ 00:00:00 [facility] ER Influenza Virus 2015-12-05 Completed Universit y of Vaccine Quad IM 00:00:00 [place] Med ical Multi-dose 6+ MO Branch Meningococcal B, OMV 2015-12-05 Completed Univ ersity of 00:00:00 [facility] Meningococcal B, OMV 2015-12-05 Completed Univ ersity of 00:00:00 [facility] Influenza Virus 2015-12-05 Completed Universit y of Vaccine Quad IM 3+ 00:00:00 [facility] ER Influenza Virus 2015-12-05 Completed Universit y of Vaccine Quad IM 00:00:00 [place] Med ical Multi-dose 6+ MO Branch Meningococcal B, OMV 2015-12-05 Completed Univ ersity of 00:00:00 [facility] Meningococcal B, OMV 2015-12-05 Completed Univ ersity of 00:00:00 [facility] Influenza Virus 2015-12-05 Completed Universit y of Vaccine Quad IM 3+ 00:00:00 [facility] ER Meningococcal B, OMV 2015-12-05 Completed Univ ersity of 00:00:00 [facility] Influenza Virus 2015-12-05 Completed Universit y of Vaccine Quad IM 3+ 00:00:00 [facility] ER Influenza Virus 2015-12-05 Completed Universit y of Vaccine Quad IM 00:00:00 [place] Med ical Multi-dose 6+ MO Branch Meningococcal B, OMV 2015-12-05 Completed Univ ersity of 00:00:00 [facility] Meningococcal B, OMV 2015-12-05 Completed Univ ersity of 00:00:00 [facility] Influenza Virus 2015-12-05 Completed Universit y of Vaccine Quad IM 3+ 00:00:00 [facility] ER Influenza Virus 2015-12-05 Completed Universit y of Vaccine Quad IM 00:00:00 [place] Med ical Multi-dose 6+ MO Branch Meningococcal B, OMV 2015-12-05 Completed Univ ersity of 00:00:00 [facility] Meningococcal B, OMV 2015-12-05 Completed Univ ersity of 00:00:00 [facility] Influenza Virus 2015-12-05 Completed Universit y of Vaccine Quad IM 3+ 00:00:00 [facility] ER Influenza Virus 2015-12-05 Completed Universit y of Vaccine Quad IM 00:00:00 [place] Med ical Multi-dose 6+ MO Branch Meningococcal B, OMV 2015-12-05 Completed Univ ersity of 00:00:00 [facility] Meningococcal B, OMV 2015-12-05 Completed Univ ersity of 00:00:00 [facility] Influenza Virus 2015-12-05 Completed Universit y of Vaccine Quad IM 3+ 00:00:00 [facility] ER Influenza Virus 2015-12-05 Completed Universit y of Vaccine Quad IM 00:00:00 [place] Med ical Multi-dose 6+ MO Branch Meningococcal B, OMV 2015-12-05 Completed Univ ersity of 00:00:00 [facility] Meningococcal B, OMV 2015-12-05 Completed Univ ersity of 00:00:00 [facility] Influenza Virus 2015-12-05 Completed Universit y of Vaccine Quad IM 3+ 00:00:00 [facility] ER Influenza Virus 2015-12-05 Completed Universit y of Vaccine Quad IM 00:00:00 [place] Med ical Multi-dose 6+ MO Branch Meningococcal B, OMV 2015-12-05 Completed Univ ersity of 00:00:00 [facility] Influenza Virus 2014-04-18 Completed Universit y of Vaccine Quad IM 00:00:00 [place] Med ical Multi-dose 6+ MO Branch Influenza Virus 2014-04-18 Completed Universit y of Vaccine Quad IM 00:00:00 [place] Med ical Multi-dose 6+ MO Branch Influenza Virus 2014-04-18 Completed Universit y of Vaccine Quad IM 00:00:00 [place] Med ical Multi-dose 6+ MO Branch Influenza Virus 2014-04-18 Completed Universit y of Vaccine Quad IM 00:00:00 [place] Med ical Multi-dose 6+ MO Branch Influenza Virus 2014-04-18 Completed Universit y of Vaccine Quad IM 00:00:00 [place] Med ical Multi-dose 6+ MO Branch Influenza Virus 2014-04-18 Completed Universit y of Vaccine Quad IM 00:00:00 [place] Med ical Multi-dose 6+ MO Branch Influenza Virus 2014-04-18 Completed Universit y of Vaccine Quad IM 00:00:00 [place] Med ical Multi-dose 6+ MO Branch Influenza Virus 2014-04-18 Completed Universit y of Vaccine Quad IM 00:00:00 [place] Med ical Multi-dose 6+ MO Branch Influenza Virus 2014-04-18 Completed Universit y of Vaccine Quad IM 00:00:00 [place] Med ical Multi-dose 6+ MO Branch Influenza Virus 2014-04-18 Completed Universit y of Vaccine Quad IM 00:00:00 [place] Med ical Multi-dose 6+ MO Branch Influenza Virus 2014-04-18 Completed Universit y of Vaccine Quad IM 00:00:00 [place] Med ical Multi-dose 6+ MO Branch Influenza Virus 2014-04-18 Completed Universit y of Vaccine Quad IM 00:00:00 [place] Med ical Multi-dose 6+ MO Branch Influenza Virus 2014-04-18 Completed Universit y of Vaccine Quad IM 00:00:00 [place] Med ical Multi-dose 6+ MO Branch Influenza Virus 2014-04-18 Completed Universit y of Vaccine Quad IM 00:00:00 [place] Med ical Multi-dose 6+ MO Branch Influenza Virus 2014-04-18 Completed Universit y of Vaccine Quad IM 00:00:00 [place] Med ical Multi-dose 6+ MO Branch Influenza Virus 2014-04-18 Completed Universit y of Vaccine Quad IM 00:00:00 [place] Med ical Multi-dose 6+ MO Branch Influenza Virus 2014-04-18 Completed Universit y of Vaccine Quad IM 00:00:00 [place] Med ical Multi-dose 6+ MO Branch Influenza Virus 2014-04-18 Completed Universit y of Vaccine Quad IM 00:00:00 [place] Med ical Multi-dose 6+ MO Branch Influenza Virus 2014-04-18 Completed Universit y of Vaccine Quad IM 00:00:00 [place] Med ical Multi-dose 6+ MO Branch Influenza Virus 2014-04-18 Completed Universit y of Vaccine Quad IM 00:00:00 [place] Med ical Multi-dose 6+ MO Branch Varicella 2012-10-22 Completed University of (varivax)(chicken 00:00:00 [place] M edical pox) Branch Varicella 2012-10-22 Completed University of (varivax)(chicken 00:00:00 [place] M edical pox) Branch Varicella 2012-10-22 Completed University of (varivax)(chicken 00:00:00 [place] M edical pox) Branch Varicella 2012-10-22 Completed University of (varivax)(chicken 00:00:00 [place] M edical pox) Branch Varicella 2012-10-22 Completed University of (varivax)(chicken 00:00:00 [place] M edical pox) Branch Varicella 2012-10-22 Completed University of (varivax)(chicken 00:00:00 [place] M edical pox) Branch Varicella 2012-10-22 Completed University of (varivax)(chicken 00:00:00 [place] M edical pox) Branch Varicella 2012-10-22 Completed University of (varivax)(chicken 00:00:00 [place] M edical pox) Branch Varicella 2012-10-22 Completed University of (varivax)(chicken 00:00:00 [place] M edical pox) Branch Varicella 2012-10-22 Completed University of (varivax)(chicken 00:00:00 [place] M edical pox) Branch Varicella 2012-10-22 Completed University of (varivax)(chicken 00:00:00 [place] M edical pox) Branch Varicella 2012-10-22 Completed University of (varivax)(chicken 00:00:00 [place] M edical pox) Branch Varicella 2012-10-22 Completed University of (varivax)(chicken 00:00:00 [place] M edical pox) Branch Varicella 2012-10-22 Completed University of (varivax)(chicken 00:00:00 [place] M edical pox) Branch Varicella 2012-10-22 Completed University of (varivax)(chicken 00:00:00 [place] M edical pox) Branch Varicella 2012-10-22 Completed University of (varivax)(chicken 00:00:00 [place] M edical pox) Branch Varicella 2012-10-22 Completed University of (varivax)(chicken 00:00:00 [place] M edical pox) Branch Varicella 2012-10-22 Completed University of (varivax)(chicken 00:00:00 [place] M edical pox) Branch Varicella 2012-10-22 Completed University of (varivax)(chicken 00:00:00 [place] M edical pox) Branch Varicella 2012-10-22 Completed University of (varivax)(chicken 00:00:00 [place] M edical pox) [place] Influenza Virus 2011-02-27 Completed Universit y of Vaccine 00:00:00 [facility] Meningococcal 2011-02-27 Completed University of Vaccine 00:00:00 [facility] Influenza Virus 2011-02-27 Completed Universit y of Vaccine Quad IM 3+ 00:00:00 [facility] Influenza Virus 2011-02-27 Completed Universit y of Vaccine 00:00:00 [facility] Meningococcal 2011-02-27 Completed University of Vaccine 00:00:00 [facility] Influenza Virus 2011-02-27 Completed Universit y of Vaccine Quad IM 3+ 00:00:00 [facility] ER Influenza Virus 2011-02-27 Completed Universit y of Vaccine 00:00:00 [facility] Meningococcal 2011-02-27 Completed University of Vaccine 00:00:00 [facility] Influenza Virus 2011-02-27 Completed Universit y of Vaccine Quad IM 3+ 00:00:00 [facility] ER Influenza Virus 2011-02-27 Completed Universit y of Vaccine 00:00:00 [facility] Meningococcal 2011-02-27 Completed University of Vaccine 00:00:00 [facility] Influenza Virus 2011-02-27 Completed Universit y of Vaccine 00:00:00 [facility] Meningococcal 2011-02-27 Completed University of Vaccine 00:00:00 [facility] Influenza Virus 2011-02-27 Completed Universit y of Vaccine Quad IM 3+ 00:00:00 [facility] ER Influenza Virus 2011-02-27 Completed Universit y of Vaccine 00:00:00 [facility] Meningococcal 2011-02-27 Completed University of Vaccine 00:00:00 [facility] Influenza Virus 2011-02-27 Completed Universit y of Vaccine Quad IM 3+ 00:00:00 [facility] ER Influenza Virus 2011-02-27 Completed Universit y of Vaccine 00:00:00 [facility] Meningococcal 2011-02-27 Completed University of Vaccine 00:00:00 [facility] Influenza Virus 2011-02-27 Completed Universit y of Vaccine Quad IM 3+ 00:00:00 [facility] ER Influenza Virus 2011-02-27 Completed Universit y of Vaccine 00:00:00 [facility] Meningococcal 2011-02-27 Completed University of Vaccine 00:00:00 [facility] Influenza Virus 2011-02-27 Completed Universit y of Vaccine Quad IM 3+ 00:00:00 [facility] ER Influenza Virus 2011-02-27 Completed Universit y of Vaccine 00:00:00 [facility] Meningococcal 2011-02-27 Completed University of Vaccine 00:00:00 [facility] Influenza Virus 2011-02-27 Completed Universit y of Vaccine Quad IM 3+ 00:00:00 [facility] ER Influenza Virus 2011-02-27 Completed Universit y of Vaccine 00:00:00 [facility] Meningococcal 2011-02-27 Completed University of Vaccine 00:00:00 [facility] Influenza Virus 2011-02-27 Completed Universit y of Vaccine Quad IM 3+ 00:00:00 [facility] Influenza Virus 2011-02-27 Completed Universit y of Vaccine Quad IM 3+ 00:00:00 [facility] Influenza Virus 2011-02-27 Completed Universit y of Vaccine 00:00:00 [facility] Meningococcal 2011-02-27 Completed University of Vaccine 00:00:00 [facility] Influenza Virus 2011-02-27 Completed [facility] Vaccine Quad IM 3+ 00:00:00 [facility] Influenza Virus 2011-02-27 Completed [facility] Vaccine 00:00:00 [facility] Meningococcal 2011-02-27 Completed [facility] of Vaccine 00:00:00 [facility] Influenza Virus 2011-02-27 Completed [facility] Vaccine Quad IM 3+ 00:00:00 [facility] ER Influenza Virus 2011-02-27 Completed [facility] Vaccine 00:00:00 [facility] Meningococcal 2011-02-27 Completed [facility] of Vaccine 00:00:00 [facility] Influenza Virus 2011-02-27 Completed [facility] Vaccine Quad IM 3+ 00:00:00 [facility] ER Influenza Virus 2011-02-27 Completed [facility] Vaccine 00:00:00 [facility] Meningococcal 2011-02-27 Completed [facility] of Vaccine 00:00:00 [facility] Influenza Virus 2011-02-27 Completed [facility] Vaccine Quad IM 3+ 00:00:00 [facility] ER Influenza Virus 2011-02-27 Completed [facility] Vaccine 00:00:00 [facility] Meningococcal 2011-02-27 Completed [facility] of Vaccine 00:00:00 [facility] Influenza Virus 2011-02-27 Completed [facility] Vaccine 00:00:00 [facility] Meningococcal 2011-02-27 Completed [facility] of Vaccine 00:00:00 [facility] Influenza Virus 2011-02-27 Completed [facility] Vaccine Quad IM 3+ 00:00:00 [facility] ER Influenza Virus 2011-02-27 Completed [facility] Vaccine 00:00:00 [facility] Meningococcal 2011-02-27 Completed [facility] of Vaccine 00:00:00 [facility] Influenza Virus 2011-02-27 Completed [facility] Vaccine Quad IM 3+ 00:00:00 [facility] ER Influenza Virus 2011-02-27 Completed [facility] Vaccine 00:00:00 [facility] Meningococcal 2011-02-27 Completed [facility] of Vaccine 00:00:00 [facility] Influenza Virus 2011-02-27 Completed [facility] Vaccine Quad IM 3+ 00:00:00 [facility] ER Influenza Virus 2011-02-27 Completed [facility] Vaccine 00:00:00 [facility] Meningococcal 2011-02-27 Completed [facility] of Vaccine 00:00:00 [facility] Influenza Virus 2011-02-27 Completed [facility] Vaccine Quad IM 3+ 00:00:00 [facility] Influenza Virus 2011-02-27 Completed [facility] Vaccine 00:00:00 [facility] Meningococcal 2011-02-27 Completed [facility] of Vaccine 00:00:00 [facility] Influenza Virus 2011-02-27 Completed [facility] Vaccine Quad IM 3+ 00:00:00 [facility] Influenza Virus 2011-02-27 Completed [facility] Vaccine Quad IM 3+ 00:00:00 [facility] Influenza Virus 2009-12-14 Completed [facility] Vaccine Quad IM 3+ 00:00:00 [facility] Influenza Virus 2009-12-14 Completed [facility] Vaccine Quad IM 3+ 00:00:00 [facility] Influenza Virus 2009-12-14 Completed [facility] Vaccine Quad IM 3+ 00:00:00 [facility] Influenza Virus 2009-12-14 Completed [facility] Vaccine Quad IM 3+ 00:00:00 [facility] Influenza Virus 2009-12-14 Completed [facility] Vaccine Quad IM 3+ 00:00:00 [facility] Influenza Virus 2009-12-14 Completed [facility] Vaccine Quad IM 3+ 00:00:00 [facility] Influenza Virus 2009-12-14 Completed [facility] Vaccine Quad IM 3+ 00:00:00 [facility] Influenza Virus 2009-12-14 Completed [facility] Vaccine Quad IM 3+ 00:00:00 [facility] Influenza Virus 2009-12-14 Completed [facility] Vaccine Quad IM 3+ 00:00:00 [facility] Influenza Virus 2009-12-14 Completed [facility] Vaccine Quad IM 3+ 00:00:00 [facility] Influenza Virus 2009-12-14 Completed [facility] Vaccine Quad IM 3+ 00:00:00 [facility] ER Influenza Virus 2009-12-14 Completed [facility] Vaccine Quad IM 3+ 00:00:00 [facility] Influenza Virus 2009-12-14 Completed [facility] Vaccine Quad IM 3+ 00:00:00 [facility] Influenza Virus 2009-12-14 Completed [facility] Vaccine Quad IM 3+ 00:00:00 [facility] Influenza Virus 2009-12-14 Completed [facility] Vaccine Quad IM 3+ 00:00:00 [facility] Influenza Virus 2009-12-14 Completed [facility] Vaccine Quad IM 3+ 00:00:00 [facility] Influenza Virus 2009-12-14 Completed [facility] Vaccine Quad IM 3+ 00:00:00 [facility] Influenza Virus 2009-12-14 Completed [facility] Vaccine Quad IM 3+ 00:00:00 [facility] Influenza Virus 2009-12-14 Completed [facility] Vaccine Quad IM 3+ 00:00:00 [facility] Influenza Virus 2009-12-14 Completed [facility] Vaccine Quad IM 3+ 00:00:00 [facility] Influenza Virus 2009-12-12 Completed [facility] Vaccine 00:00:00 [facility] Influenza Virus 2009-12-12 Completed [facility] Vaccine 00:00:00 [facility] Influenza Virus 2009-12-12 Completed [facility] Vaccine 00:00:00 [facility] Influenza Virus 2009-12-12 Completed [facility] Vaccine 00:00:00 [facility] Influenza Virus 2009-12-12 Completed [facility] Vaccine 00:00:00 [facility] Influenza Virus 2009-12-12 Completed [facility] Vaccine 00:00:00 [facility] Influenza Virus 2009-12-12 Completed [facility] Vaccine 00:00:00 [facility] Influenza Virus 2009-12-12 Completed [facility] Vaccine 00:00:00 [facility] Influenza Virus 2009-12-12 Completed [facility] Vaccine 00:00:00 [facility] Influenza Virus 2009-12-12 Completed [facility] Vaccine 00:00:00 [facility] Influenza Virus 2009-12-12 Completed [facility] Vaccine 00:00:00 [facility] Influenza Virus 2009-12-12 Completed [facility] Vaccine 00:00:00 [facility] Influenza Virus 2009-12-12 Completed [facility] Vaccine 00:00:00 [facility] Influenza Virus 2009-12-12 Completed [facility] Vaccine 00:00:00 [facility] Influenza Virus 2009-12-12 Completed [facility] Vaccine 00:00:00 [facility] Influenza Virus 2009-12-12 Completed [facility] Vaccine 00:00:00 [facility] Influenza Virus 2009-12-12 Completed [facility] Vaccine 00:00:00 [facility] Influenza Virus 2009-12-12 Completed [facility] Vaccine 00:00:00 [facility] Influenza Virus 2009-12-12 Completed [facility] Vaccine 00:00:00 [facility] Influenza Virus 2009-12-12 Completed [facility] Vaccine 00:00:00 [facility] Influenza Virus 2008-12-12 Completed [facility] Vaccine 00:00:00 [facility] Tdap 2008-12-12 Completed [facility] of 00:00:00 [facility] Influenza Virus 2008-12-12 Completed [facility] Vaccine Quad IM 3+ 00:00:00 [facility] Influenza Virus 2008-12-12 Completed [facility] Vaccine 00:00:00 [facility] Tdap 2008-12-12 Completed [facility] of 00:00:00 [facility] Influenza Virus 2008-12-12 Completed [facility] Vaccine Quad IM 3+ 00:00:00 [facility] Influenza Virus 2008-12-12 Completed [facility] Vaccine 00:00:00 [facility] Tdap 2008-12-12 Completed [facility] of 00:00:00 [facility] Influenza Virus 2008-12-12 Completed [facility] Vaccine Quad IM 3+ 00:00:00 [facility] Influenza Virus 2008-12-12 Completed [facility] Vaccine 00:00:00 [facility] Influenza Virus 2008-12-12 Completed [facility] Vaccine 00:00:00 [facility] Tdap 2008-12-12 Completed [facility] of 00:00:00 [facility] Tdap 2008-12-12 Completed [facility] of 00:00:00 [facility] Influenza Virus 2008-12-12 Completed [facility] Vaccine Quad IM 3+ 00:00:00 [facility] Influenza Virus 2008-12-12 Completed [facility] Vaccine 00:00:00 [facility] Tdap 2008-12-12 Completed [facility] of 00:00:00 [facility] Influenza Virus 2008-12-12 Completed [facility] Vaccine Quad IM 3+ 00:00:00 [facility] Influenza Virus 2008-12-12 Completed [facility] Vaccine 00:00:00 [facility] TDAP 2008-12-12 Completed [facility] of 00:00:00 [facility] Influenza Virus 2008-12-12 Completed [facility] Vaccine Quad IM 3+ 00:00:00 [facility] Influenza Virus 2008-12-12 Completed [facility] Vaccine 00:00:00 [facility] TDAP 2008-12-12 Completed [facility] of 00:00:00 [facility] Influenza Virus 2008-12-12 Completed [facility] Vaccine Quad IM 3+ 00:00:00 [facility] Influenza Virus 2008-12-12 Completed [facility] Vaccine 00:00:00 [facility] TDAP 2008-12-12 Completed [facility] of 00:00:00 [facility] Influenza Virus 2008-12-12 Completed [facility] Vaccine Quad IM 3+ 00:00:00 [facility] Influenza Virus 2008-12-12 Completed [facility] Vaccine 00:00:00 [facility] TDAP 2008-12-12 Completed [facility] of 00:00:00 [facility] Influenza Virus 2008-12-12 Completed [facility] Vaccine Quad IM 3+ 00:00:00 [facility] Influenza Virus 2008-12-12 Completed [facility] Vaccine Quad IM 3+ 00:00:00 [facility] Influenza Virus 2008-12-12 Completed [facility] Vaccine 00:00:00 [facility] TDAP 2008-12-12 Completed [facility] of 00:00:00 [facility] Influenza Virus 2008-12-12 Completed [facility] Vaccine Quad IM 3+ 00:00:00 [facility] Influenza Virus 2008-12-12 Completed [facility] Vaccine 00:00:00 [facility] TDAP 2008-12-12 Completed [facility] of 00:00:00 [facility] Influenza Virus 2008-12-12 Completed [facility] Vaccine Quad IM 3+ 00:00:00 [facility] Influenza Virus 2008-12-12 Completed [facility] Vaccine 00:00:00 [facility] TDAP 2008-12-12 Completed [facility] of 00:00:00 [facility] Influenza Virus 2008-12-12 Completed [facility] Vaccine Quad IM 3+ 00:00:00 [facility] Influenza Virus 2008-12-12 Completed [facility] Vaccine 00:00:00 [facility] TDAP 2008-12-12 Completed [facility] of 00:00:00 [facility] Influenza Virus 2008-12-12 Completed [facility] Vaccine 00:00:00 [facility] Influenza Virus 2008-12-12 Completed [facility] Vaccine Quad IM 3+ 00:00:00 [facility] Influenza Virus 2008-12-12 Completed [facility] Vaccine 00:00:00 [facility] TDAP 2008-12-12 Completed [facility] of 00:00:00 [facility] Tdap 2008-12-12 Completed [facility] of 00:00:00 [facility] Influenza Virus 2008-12-12 Completed [facility] Vaccine Quad IM 3+ 00:00:00 [facility] Influenza Virus 2008-12-12 Completed [facility] Vaccine 00:00:00 [facility] TDAP 2008-12-12 Completed [facility] of 00:00:00 [facility] Influenza Virus 2008-12-12 Completed [facility] Vaccine Quad IM 3+ 00:00:00 [facility] Influenza Virus 2008-12-12 Completed [facility] Vaccine 00:00:00 [facility] TDAP 2008-12-12 Completed [facility] of 00:00:00 [facility] Influenza Virus 2008-12-12 Completed [facility] Vaccine Quad IM 3+ 00:00:00 [facility] Influenza Virus 2008-12-12 Completed [facility] Vaccine 00:00:00 [facility] TDAP 2008-12-12 Completed [facility] of 00:00:00 [facility] Influenza Virus 2008-12-12 Completed [facility] Vaccine Quad IM 3+ 00:00:00 [facility] Influenza Virus 2008-12-12 Completed [facility] Vaccine 00:00:00 [facility] TDAP 2008-12-12 Completed [facility] of 00:00:00 [facility] Influenza Virus 2008-12-12 Completed [facility] Vaccine Quad IM 3+ 00:00:00 [facility] Influenza Virus 2008-12-12 Completed [facility] of Vaccine Quad IM 3+ 00:00:00 [facility] Influenza Virus 2008-01-26 Completed [facility] Vaccine 00:00:00 [facility] Influenza Virus 2008-01-26 Completed [facility] Vaccine 00:00:00 [facility] Influenza Virus 2008-01-26 Completed [facility] Vaccine 00:00:00 [facility] Influenza Virus 2008-01-26 Completed [facility] Vaccine 00:00:00 [facility] Influenza Virus 2008-01-26 Completed [facility] Vaccine 00:00:00 [facility] Influenza Virus 2008-01-26 Completed [facility] Vaccine 00:00:00 [facility] Influenza Virus 2008-01-26 Completed [facility] Vaccine 00:00:00 [facility] Influenza Virus 2008-01-26 Completed [facility] Vaccine 00:00:00 [facility] Influenza Virus 2008-01-26 Completed [facility] Vaccine 00:00:00 [facility] Influenza Virus 2008-01-26 Completed [facility] Vaccine 00:00:00 [facility] Influenza Virus 2008-01-26 Completed [facility] Vaccine 00:00:00 [facility] Influenza Virus 2008-01-26 Completed [facility] Vaccine 00:00:00 [facility] Influenza Virus 2008-01-26 Completed [facility] Vaccine 00:00:00 [facility] Influenza Virus 2008-01-26 Completed [facility] Vaccine 00:00:00 [facility] Influenza Virus 2008-01-26 Completed [facility] Vaccine 00:00:00 [facility] Influenza Virus 2008-01-26 Completed [facility] Vaccine 00:00:00 [facility] Influenza Virus 2008-01-26 Completed [facility] Vaccine 00:00:00 [facility] Influenza Virus 2008-01-26 Completed [facility] Vaccine 00:00:00 [facility] Influenza Virus 2008-01-26 Completed [facility] Vaccine 00:00:00 [facility] Influenza Virus 2008-01-26 Completed [facility] Vaccine 00:00:00 [facility] Influenza Virus 2006-01-27 Completed [facility] Vaccine Quad IM 3+ 00:00:00 [facility] Influenza Virus 2006-01-27 Completed [facility] of Vaccine Quad IM 3+ 00:00:00 [facility] Influenza Virus 2006-01-27 Completed [facility] Vaccine Quad IM 3+ 00:00:00 [facility] Influenza Virus 2006-01-27 Completed [facility] Vaccine Quad IM 3+ 00:00:00 [facility] Influenza Virus 2006-01-27 Completed [facility] Vaccine Quad IM 3+ 00:00:00 [facility] Influenza Virus 2006-01-27 Completed [facility] Vaccine Quad IM 3+ 00:00:00 [facility] Influenza Virus 2006-01-27 Completed [facility] Vaccine Quad IM 3+ 00:00:00 [facility] Influenza Virus 2006-01-27 Completed [facility] of Vaccine Quad IM 3+ 00:00:00 [facility] Influenza Virus 2006-01-27 Completed [facility] of Vaccine Quad IM 3+ 00:00:00 [facility] Influenza Virus 2006-01-27 Completed [facility] of Vaccine Quad IM 3+ 00:00:00 [facility] Influenza Virus 2006-01-27 Completed [facility] of Vaccine Quad IM 3+ 00:00:00 [facility] Influenza Virus 2006-01-27 Completed [facility] of Vaccine Quad IM 3+ 00:00:00 [facility] Influenza Virus 2006-01-27 Completed [facility] Vaccine Quad IM 3+ 00:00:00 [facility] Influenza Virus 2006-01-27 Completed [facility] of Vaccine Quad IM 3+ 00:00:00 [facility] Influenza Virus 2006-01-27 Completed [facility] of Vaccine Quad IM 3+ 00:00:00 [facility] Influenza Virus 2006-01-27 Completed [facility] of Vaccine Quad IM 3+ 00:00:00 [facility] Influenza Virus 2006-01-27 Completed [facility] of Vaccine Quad IM 3+ 00:00:00 [facility] Influenza Virus 2006-01-27 Completed [facility] of Vaccine Quad IM 3+ 00:00:00 [facility] Influenza Virus 2006-01-27 Completed [facility] of Vaccine Quad IM 3+ 00:00:00 [facility] Influenza Virus 2006-01-27 Completed [facility] of Vaccine Quad IM 3+ 00:00:00 [facility] Influenza Virus 2006-01-23 Completed [facility] Vaccine 00:00:00 [facility] Influenza Virus 2006-01-23 Completed [facility] of Vaccine Quad IM 3+ 00:00:00 [facility] Influenza Virus 2006-01-23 Completed [facility] of Vaccine 00:00:00 [facility] Influenza Virus 2006-01-23 Completed [facility] of Vaccine Quad IM 3+ 00:00:00 [facility] Influenza Virus 2006-01-23 Completed [facility] Vaccine 00:00:00 [facility] Influenza Virus 2006-01-23 Completed [facility] Vaccine 00:00:00 [facility] Influenza Virus 2006-01-23 Completed [facility] of Vaccine Quad IM 3+ 00:00:00 [facility] Influenza Virus 2006-01-23 Completed [facility] of Vaccine 00:00:00 [facility] Influenza Virus 2006-01-23 Completed [facility] of Vaccine Quad IM 3+ 00:00:00 [facility] Influenza Virus 2006-01-23 Completed [facility] of Vaccine 00:00:00 [facility] Influenza Virus 2006-01-23 Completed [facility] of Vaccine Quad IM 3+ 00:00:00 [facility] Influenza Virus 2006-01-23 Completed [facility] of Vaccine 00:00:00 [facility] Influenza Virus 2006-01-23 Completed [facility] of Vaccine Quad IM 3+ 00:00:00 [facility] Influenza Virus 2006-01-23 Completed [facility] of Vaccine 00:00:00 [facility] Influenza Virus 2006-01-23 Completed [facility] of Vaccine Quad IM 3+ 00:00:00 [facility] Influenza Virus 2006-01-23 Completed [facility] of Vaccine 00:00:00 [facility] Influenza Virus 2006-01-23 Completed [facility] of Vaccine Quad IM 3+ 00:00:00 [facility] Influenza Virus 2006-01-23 Completed [facility] of Vaccine Quad IM 3+ 00:00:00 [facility] Influenza Virus 2006-01-23 Completed [facility] Vaccine 00:00:00 [facility] Influenza Virus 2006-01-23 Completed [facility] of Vaccine Quad IM 3+ 00:00:00 [facility] Influenza Virus 2006-01-23 Completed [facility] of Vaccine 00:00:00 [facility] Influenza Virus 2006-01-23 Completed [facility] of Vaccine Quad IM 3+ 00:00:00 [facility] Influenza Virus 2006-01-23 Completed [facility] Vaccine 00:00:00 [facility] Influenza Virus 2006-01-23 Completed [facility] Vaccine Quad IM 3+ 00:00:00 [facility] Influenza Virus 2006-01-23 Completed [facility] of Vaccine 00:00:00 [facility] Influenza Virus 2006-01-23 Completed [facility] of Vaccine Quad IM 3+ 00:00:00 [facility] Influenza Virus 2006-01-23 Completed [facility] of Vaccine 00:00:00 [facility] Influenza Virus 2006-01-23 Completed [facility] Vaccine 00:00:00 [facility] Influenza Virus 2006-01-23 Completed [facility] Vaccine Quad IM 3+ 00:00:00 [facility] Influenza Virus 2006-01-23 Completed [facility] Vaccine 00:00:00 [facility] Influenza Virus 2006-01-23 Completed [facility] Vaccine Quad IM 3+ 00:00:00 [facility] Influenza Virus 2006-01-23 Completed [facility] Vaccine 00:00:00 [facility] Influenza Virus 2006-01-23 Completed [facility] Vaccine Quad IM 3+ 00:00:00 [facility] Influenza Virus 2006-01-23 Completed [facility] Vaccine 00:00:00 [facility] Influenza Virus 2006-01-23 Completed [facility] of Vaccine Quad IM 3+ 00:00:00 [facility] Influenza Virus 2006-01-23 Completed [facility] Vaccine 00:00:00 [facility] Influenza Virus 2006-01-23 Completed [facility] Vaccine Quad IM 3+ 00:00:00 [facility] Influenza Virus 2006-01-23 Completed [facility] of Vaccine Quad IM 3+ 00:00:00 [facility] Influenza Virus 2006-01-23 Completed [facility] Vaccine 00:00:00 [facility] Influenza Virus 2006-01-23 Completed [facility] Vaccine Quad IM 3+ 00:00:00 [facility] MMR 2002-10-30 Completed [facility] of 00:00:00 [facility] Polio (IPV/OPV) 2002-10-30 Completed [facility] 00:00:00 [facility] MMR 2002-10-30 Completed [facility] of 00:00:00 [facility] Polio (IPV/OPV) 2002-10-30 Completed [facility] 00:00:00 [facility] MMR 2002-10-30 Completed [facility] of 00:00:00 [facility] Polio (IPV/OPV) 2002-10-30 Completed [facility] of 00:00:00 [facility] MMR 2002-10-30 Completed [facility] of 00:00:00 [facility] Polio (IPV/OPV) 2002-10-30 Completed [facility] of 00:00:00 [facility] MMR 2002-10-30 Completed [facility] of 00:00:00 [facility] Polio (IPV/OPV) 2002-10-30 Completed [facility] of 00:00:00 [facility] MMR 2002-10-30 Completed [facility] of 00:00:00 [facility] Polio (IPV/OPV) 2002-10-30 Completed [facility] of 00:00:00 [facility] MMR 2002-10-30 Completed [facility] of 00:00:00 [facility] MMR 2002-10-30 Completed [facility] of 00:00:00 [facility] Polio (IPV/OPV) 2002-10-30 Completed [facility] of 00:00:00 [facility] Polio (IPV/OPV) 2002-10-30 Completed [facility] of 00:00:00 [facility] MMR 2002-10-30 Completed [facility] of 00:00:00 [facility] Polio (IPV/OPV) 2002-10-30 Completed [facility] 00:00:00 [facility] 2002-10-30 Completed [facility] of 00:00:00 [facility] Polio (IPV/OPV) 2002-10-30 Completed [facility] 00:00:00 [facility] 2002-10-30 Completed [facility] of 00:00:00 [facility] Polio (IPV/OPV) 2002-10-30 Completed [facility] 00:00:00 [facility] 2002-10-30 Completed [facility] of 00:00:00 [facility] Polio (IPV/OPV) 2002-10-30 Completed [facility] 00:00:00 [facility] 2002-10-30 Completed [facility] of 00:00:00 [facility] Polio (IPV/OPV) 2002-10-30 Completed [facility] 00:00:00 [facility] 2002-10-30 Completed [facility] of 00:00:00 [facility] Polio (IPV/OPV) 2002-10-30 Completed [facility] 00:00:00 [facility] 2002-10-30 Completed [facility] of 00:00:00 [facility] Polio (IPV/OPV) 2002-10-30 Completed [facility] 00:[facility]00 [facility] 2002-10-30 Completed [facility] 00:00:00 [facility] Polio (IPV/OPV) 2002-10-30 Completed [facility] 00:00:00 [facility] 2002-10-30 Completed [facility] 00:00:00 [facility] Polio (IPV/OPV) 2002-10-30 Completed [facility] 00:00:00 [facility] 2002-10-30 Completed [facility] 00:00:00 [facility] Polio (IPV/OPV) 2002-10-30 Completed [facility] 00:00:00 [facility] 2002-10-30 Completed [facility] 00:00:00 [facility] Polio (IPV/OPV) 2002-10-30 Completed [facility] 00:00:00 [facility] 2002-10-30 Completed [facility] 00:00:00 [facility] Polio (IPV/OPV) 2002-10-30 Completed [facility] 00:00:00 [facility] Varicella 2000-11-16 Completed [facility] of (varivax)(chicken 00:00:00 [facility] Varicella 2000-11-16 Completed [facility] (varivax)(chicken 00:00:00 [facility] Varicella 2000-11-16 Completed [facility] (varivax)(chicken 00:00:00 [facility] Varicella 2000-11-16 Completed [facility] (varivax)(chicken 00:00:00 [facility] Varicella 2000-11-16 Completed [facility] (varivax)(chicken 00:00:00 [facility] Varicella 2000-11-16 Completed [facility] (varivax)(chicken 00:00:00 [facility] Varicella 2000-11-16 Completed [facility] (varivax)(chicken 00:00:00 [facility] Varicella 2000-11-16 Completed [facility] (varivax)(chicken 00:00:00 [facility] Varicella 2000-11-16 Completed [facility] (varivax)(chicken 00:00:00 [facility] Varicella 2000-11-16 Completed [facility] (varivax)(chicken 00:00:00 [facility] Varicella 2000-11-16 Completed [facility] (varivax)(chicken 00:00:00 [facility] Varicella 2000-11-16 Completed [facility] (varivax)(chicken 00:00:00 [facility] Varicella 2000-11-16 Completed [facility] (varivax)(chicken 00:00:00 [facility] Varicella 2000-11-16 Completed [facility] (varivax)(chicken 00:00:00 [facility] Varicella 2000-11-16 Completed [facility] (varivax)(chicken 00:00:00 [facility] Varicella 2000-11-16 Completed [facility] (varivax)(chicken 00:00:00 [facility] Varicella 2000-11-16 Completed [facility] (varivax)(chicken 00:00:00 [facility] Varicella 2000-11-16 Completed [facility] (varivax)(chicken 00:00:00 [facility] Varicella 2000-11-16 Completed [facility] (varivax)(chicken 00:00:00 [facility] Varicella 2000-11-16 Completed [facility] (varivax)(chicken 00:00:00 [facility] DTAP 1999-01-07 Completed [facility] 00:00:00 [facility] Polio (IPV/OPV) 1999-01-07 Completed [facility] 00:00:00 [facility] DTAP 1999-01-07 Completed [facility] 00:00:00 [facility] Polio (IPV/OPV) 1999-01-07 Completed [facility] 00:00:00 [facility] DTAP 1999-01-07 Completed [facility] 00:00:00 [facility] Polio (IPV/OPV) 1999-01-07 Completed [facility] 00:00:00 [facility] DTAP 1999-01-07 Completed [facility] 00:00:00 [facility] Polio (IPV/OPV) 1999-01-07 Com[facility] 00:00:00 [facility] Polio (IPV/OPV) 1999-01-07 Completed [facility] 00:00:00 [facility] DTAP 1999-01-07 Completed [facility] 00:00:00 [facility] DTAP 1999-01-07 Completed [facility] 00:00:00 [facility] Polio (IPV/OPV) 1999-01-07 Completed [facility] 00:00:00 [facility] DTAP 1999-01-07 Completed [facility] 00:00:00 [facility] Polio (IPV/OPV) 1999-01-07 Completed [facility] 00:00:00 [facility] Polio (IPV/OPV) 1999-01-07 Completed [facility] 00:00:00 [facility] DTAP 1999-01-07 Completed [facility] 00:00:00 [facility] Polio (IPV/OPV) 1999-01-07 Completed [facility] 00:00:00 [facility] DTAP 1999-01-07 Completed [facility] 00:00:00 [facility] Polio (IPV/OPV) 1999-01-07 Completed [facility] 00:00:00 [facility] DTAP 1999-01-07 Completed [facility] 00:00:00 [facility] Polio (IPV/OPV) 1999-01-07 Completed [facility] 00:00:00 [facility] DTAP 1999-01-07 Completed [facility] 00:00:00 [facility] Polio (IPV/OPV) 1999-01-07 Completed [facility] 00:00:00 [facility] DTAP 1999-01-07 Completed [facility] 00:00:00 [facility] Polio (IPV/OPV) 1999-01-07 Completed [facility] 00:00:00 [facility] DTAP 1999-01-07 Completed [facility] 00:00:00 [facility] Polio (IPV/OPV) 1999-01-07 Completed [facility] 00:00:00 [facility] DTAP 1999-01-07 Completed [facility] 00:00:00 [facility] Polio (IPV/OPV) 1999-01-07 Completed [facility] 00:00:00 [facility] DTAP 1999-01-07 Completed [facility] 00:00:00 [facility] Polio (IPV/OPV) 1999-01-07 Completed [facility] 00:00:00 [facility] DTAP 1999-01-07 Completed [facility] 00:00:00 [facility] DTAP 1999-01-07 Completed [facility] 00:00:00 [facility] Polio (IPV/OPV) 1999-01-07 Completed [facility] 00:00:00 [facility] Polio (IPV/OPV) 1999-01-07 Completed [facility] 00:00:00 [facility] DTAP 1999-01-07 Completed [facility] 00:00:00 [facility] Polio (IPV/OPV) 1999-01-07 Completed [facility] 00:00:00 [facility] DTAP 1999-01-07 Completed [facility] 00:00:00 [facility] Polio (IPV/OPV) 1999-01-07 Completed [facility] 00:00:00 [facility] HIB 3 Dose Schedule 1998-09-19 Completed [facility] 00:00:00 [facility] Hep B, Adol or Pedi 1998-09-19 Completed [facility] of Dosage 00:00:00 [facility] HIB 3 Dose Schedule 1998-09-19 Completed [facility] 00:00:00 [facility] Hep B, Adol or Pedi 1998-09-19 Completed [facility] Dosage 00:00:00 [facility] HIB 3 Dose Schedule 1998-09-19 Completed [facility] 00:00:00 [facility] Hep B, Adol or Pedi 1998-09-19 Completed [facility] of Dosage 00:00:00 [facility] HIB 3 Dose Schedule 1998-09-19 Completed [facility] 00:00:00 [facility] Hep B, Adol or Pedi 1998-09-19 Completed [facility] Dosage 00:00:00 [facility] HIB 3 Dose Schedule 1998-09-19 Completed [facility] 00:00:00 [facility] Hep B, Adol or Pedi 1998-09-19 Completed [facility] Dosage 00:00:00 [facility] HIB 3 Dose Schedule 1998-09-19 Completed [facility] 00:00:00 [facility] HIB 3 Dose Schedule 1998-09-19 Completed [facility] 00:00:00 [facility] Hep B, Adol or Pedi 1998-09-19 Completed [facility] Dosage 00:00:00 [facility] Hep B, Adol or Pedi 1998-09-19 Completed [facility] Dosage 00:00:00 [facility] HIB 3 Dose Schedule 1998-09-19 Completed [facility] 00:00:00 [facility] Hep B, Adol or Pedi 1998-09-19 Completed [facility] Dosage 00:00:00 [facility] HIB 3 Dose Schedule 1998-09-19 Completed [facility] 00:00:00 [facility] Hep B, Adol or Pedi 1998-09-19 Completed [facility] Dosage 00:00:00 [facility] HIB 3 Dose Schedule 1998-09-19 Completed [facility] 00:00:00 [facility] Hep B, Adol or Pedi 1998-09-19 Completed [facility] of Dosage 00:00:00 [facility] HIB 3 Dose Schedule 1998-09-19 Completed [facility] 00:00:00 [facility] Hep B, Adol or Pedi 1998-09-19 Completed [facility] of Dosage 00:00:00 [facility] HIB 3 Dose Schedule 1998-09-19 Completed [facility] 00:00:00 [facility] Hep B, Adol or Pedi 1998-09-19 Completed [facility] Dosage 00:00:00 [facility] HIB 3 Dose Schedule 1998-09-19 Completed [facility] 00:00:00 [facility] Hep B, Adol or Pedi 1998-09-19 Completed [facility] of Dosage 00:00:00 [facility] HIB 3 Dose Schedule 1998-09-19 Completed [facility] 00:00:00 [facility] Hep B, Adol or Pedi 1998-09-19 Completed [facility] Dosage 00:00:00 [facility] HIB 3 Dose Schedule 1998-09-19 Completed [facility] 00:00:00 [facility] Hep B, Adol or Pedi 1998-09-19 Completed [facility] Dosage 00:00:00 [facility] HIB 3 Dose Schedule 1998-09-19 Completed [facility] 00:00:00 [facility] Hep B, Adol or Pedi 1998-09-19 Completed [facility] Dosage 00:00:00 [facility] HIB 3 Dose Schedule 1998-09-19 Completed [facility] 00:00:00 [facility] HIB 3 Dose Schedule 1998-09-19 Completed [facility] 00:00:00 [facility] Hep B, Adol or Pedi 1998-09-19 Completed [facility] Dosage 00:00:00 [facility] Hep B, Adol or Pedi 1998-09-19 Completed [facility] Dosage 00:00:00 [facility] HIB 3 Dose Schedule 1998-09-19 Completed [facility] 00:00:00 [facility] Hep B, Adol or Pedi 1998-09-19 Completed [facility] Dosage 00:00:00 [facility] HIB 3 Dose Schedule 1998-09-19 Completed [facility] 00:00:00 [facility] Hep B, Adol or Pedi 1998-09-19 Completed [facility] Dosage 00:00:00 [facility] MMR 1998-06-27 Completed [facility] 00:00:00 [facility] MMR 1998-06-27 Completed [facility] 00:00:00 [facility] MMR 1998-06-27 Completed [facility] 00:00:00 [facility] MMR 1998-06-27 Completed [facility] 00:00:00 [facility] MMR 1998-06-27 Completed [facility] 00:00:00 [facility] MMR 1998-06-27 Completed [facility] 00:00:00 [facility] MMR 1998-06-27 Completed [facility] 00:00:00 [facility] MMR 1998-06-27 Completed [facility] 00:00:00 [facility] MMR 1998-06-27 Completed [facility] 00:00:00 [facility] MMR 1998-06-27 Completed [facility] 00:00:00 [facility] MMR 1998-06-27 Completed [facility] 00:00:00 [facility] MMR 1998-06-27 Completed [facility] 00:00:00 [facility] MMR 1998-06-27 Completed [facility] 00:00:00 [facility] MMR 1998-06-27 Completed [facility] 00:00:00 [facility] MMR 1998-06-27 Completed [facility] 00:00:00 [facility] MMR 1998-06-27 Completed [facility] 00:00:00 [facility] MMR 1998-06-27 Completed [facility] 00:00:00 [facility] MMR 1998-06-27 Completed [facility] 00:00:00 [facility] MMR 1998-06-27 Completed [facility] 00:00:00 [facility] MMR 1998-06-27 Completed [facility] 00:00:00 [facility] DTAP 1998-02-26 Completed [facility] 00:00:00 [facility] DTAP 1998-02-26 Completed [facility] 00:00:00 [facility] DTAP 1998-02-26 Completed [facility] 00:00:00 [facility] DTAP 1998-02-26 Completed [facility] 00:00:00 [facility] DTAP 1998-02-26 Completed [facility] 00:00:00 [facility] DTAP 1998-02-26 Completed [facility] 00:00:00 [facility] DTAP 1998-02-26 Completed [facility] 00:00:00 [facility] DTAP 1998-02-26 Completed [facility] 00:00:00 [facility] DTAP 1998-02-26 Completed [facility] 00:00:00 [facility] DTAP 1998-02-26 Completed [facility] 00:00:00 [facility] DTAP 1998-02-26 Completed [facility] 00:00:00 [facility] DTAP 1998-02-26 Completed [facility] 00:00:00 [facility] DTAP 1998-02-26 Completed [facility] 00:00:00 [facility] DTAP 1998-02-26 Completed [facility] 00:00:00 [facility] DTAP 1998-02-26 Completed [facility] 00:00:00 [facility] DTAP 1998-02-26 Completed [facility] 00:00:00 [facility] DTAP 1998-02-26 Completed [facility] 00:00:00 [facility] DTAP 1998-02-26 Completed [facility] 00:00:00 [facility] DTAP 1998-02-26 Completed [facility] 00:00:00 [facility] DTAP 1998-02-26 Completed [facility] 00:00:00 [facility] DTAP 1997 Completed [facility] 00:00:00 [facility] HIB 3 Dose Schedule 1997 Completed [facility] 00:00:00 [facility] Hep B, Adol or Pedi 1997 Completed [facility] Dosage 00:00:00 [facility] Polio (IPV/OPV) 1997 Completed [facility] 00:00:00 [facility] DTAP 1997 Completed [facility] 00:00:00 [facility] HIB 3 Dose Schedule 1997 Completed [facility] 00:00:00 [facility] Hep B, Adol or Pedi 1997 Completed [facility] Dosage 00:00:00 [facility] Polio (IPV/OPV) 1997 Completed [facility] 00:00:00 [facility] DTAP 1997 Completed [facility] 00:00:00 [facility] HIB 3 Dose Schedule 1997 Completed [facility] 00:00:00 [facility] Hep B, Adol or Pedi 1997 Completed [facility] Dosage 00:00:00 [facility] Polio (IPV/OPV) 1997 Completed [facility] 00:00:00 [facility] DTAP 1997 Completed [facility] 00:00:00 [facility] HIB 3 Dose Schedule 1997 Completed [facility] 00:00:00 [facility] Hep B, Adol or Pedi 1997 Completed [facility] Dosage 00:00:00 [facility] Polio (IPV/OPV) 1997 Completed [facility] 00:00:00 [facility] DTAP 1997 Completed [facility] 00:00:00 [facility] HIB 3 Dose Schedule 1997 Completed [facility] 00:00:00 [facility] Hep B, Adol or Pedi 1997 Completed [facility] Dosage 00:00:00 [facility] DTAP 1997 Completed [facility] 00:00:00 [facility] Polio (IPV/OPV) 1997 Completed [facility] 00:00:00 [facility] HIB 3 Dose Schedule 1997 Completed [facility] 00:00:00 [facility] DTAP 1997 Completed [facility] 00:00:00 [facility] HIB 3 Dose Schedule 1997 Completed [facility] 00:00:00 [facility] Hep B, Adol or Pedi 1997 Completed [facility] Dosage 00:00:00 [facility] Hep B, Adol or Pedi 1997 Completed [facility] Dosage 00:00:00 [facility] Polio (IPV/OPV) 1997 Completed [facility] 00:00:00 [facility] DTAP 1997 Completed [facility] 00:00:00 [facility] HIB 3 Dose Schedule 1997 Completed [facility] 00:00:00 [facility] Hep B, Adol or Pedi 1997 Completed [facility] Dosage 00:00:00 [facility] Polio (IPV/OPV) 1997 Completed [facility] 00:00:00 [facility] Polio (IPV/OPV) 1997 Completed [facility] 00:00:00 [facility] DTAP 1997 Completed [facility] 00:00:00 [facility] HIB 3 Dose Schedule 1997 Completed [facility] 00:00:00 [facility] Hep B, Adol or Pedi 1997 Completed [facility] Dosage 00:00:00 [facility] Polio (IPV/OPV) 1997 Completed [facility] 00:00:00 [facility] DTAP 1997 Completed [facility] 00:00:00 [facility] HIB 3 Dose Schedule 1997 Completed [facility] 00:00:00 [facility] Hep B, Adol or Pedi 1997 Completed [facility] Dosage 00:00:00 [facility] Polio (IPV/OPV) 1997 Completed [facility] 00:00:00 [facility] DTAP 1997 Completed [facility] 00:00:00 [facility] HIB 3 Dose Schedule 1997 Completed [facility] 00:00:00 [facility] Hep B, Adol or Pedi 1997 Completed [facility] Dosage 00:00:00 [facility] Polio (IPV/OPV) 1997 Completed [facility] 00:00:00 [facility] DTAP 1997 Completed [facility] 00:00:00 [facility] HIB 3 Dose Schedule 1997 Completed [facility] 00:00:00 [facility] Hep B, Adol or Pedi 1997 Completed [facility] Dosage 00:00:00 [facility] Polio (IPV/OPV) 1997 Completed [facility] 00:00:00 [facility] DTAP 1997 Completed [facility] 00:00:00 [facility] HIB 3 Dose Schedule 1997 Completed [facility] 00:00:00 [facility] Hep B, Adol or Pedi 1997 Completed [facility] Dosage 00:00:00 [facility] Polio (IPV/OPV) 1997 Completed [facility] 00:00:00 [facility] DTAP 1997 Completed [facility] 00:00:00 [facility] HIB 3 Dose Schedule 1997 Completed [facility] 00:00:00 [facility] Hep B, Adol or Pedi 1997 Completed [facility] Dosage 00:00:00 [facility] Polio (IPV/OPV) 1997 Completed [facility] 00:00:00 [facility] DTAP 1997 Completed [facility] 00:00:00 [facility] HIB 3 Dose Schedule 1997 Completed [facility] 00:00:00 [facility] Hep B, Adol or Pedi 1997 Completed [facility] Dosage 00:00:00 [facility] Polio (IPV/OPV) 1997 Completed [facility] 00:00:00 [facility] DTAP 1997 Completed [facility] 00:00:00 [facility] DTAP 1997 Completed [facility] 00:00:00 [facility] HIB 3 Dose Schedule 1997 Completed [facility] 00:00:00 [facility] Hep B, Adol or Pedi 1997 Completed [facility] Dosage 00:00:00 [facility] Polio (IPV/OPV) 1997 Completed [facility] 00:00:00 [facility] HIB 3 Dose Schedule 1997 Completed [facility] 00:00:00 [facility] Hep B, Adol or Pedi 1997 Completed [facility] Dosage 00:00:00 [facility] DTAP 1997 Completed [facility] 00:00:00 [facility] HIB 3 Dose Schedule 1997 Completed [facility] 00:00:00 [facility] Hep B, Adol or Pedi 1997 Completed [facility] Dosage 00:00:00 [facility] Polio (IPV/OPV) 1997 Completed [facility] 00:00:00 [facility] Polio (IPV/OPV) 1997 Completed [facility] 00:00:00 [facility] DTAP 1997 Completed [facility] 00:00:00 [facility] HIB 3 Dose Schedule 1997 Completed [facility] 00:00:00 [facility] Hep B, Adol or Pedi 1997 Completed [facility] Dosage 00:00:00 [facility] Polio (IPV/OPV) 1997 Completed [facility] 00:00:00 [facility] DTAP 1997 Completed [facility] 00:00:00 [facility] HIB 3 Dose Schedule 1997 Completed [facility] 00:00:00 [facility] Hep B, Adol or Pedi 1997 Completed [facility] Dosage 00:00:00 [facility] Polio (IPV/OPV) 1997 Completed [facility] 00:00:00 [facility] DTAP 1997 Completed [facility] 00:00:00 [facility] HIB 3 Dose Schedule 1997 Completed [facility] 00:00:00 [facility] Hep B, Adol or Pedi 1997 Completed [facility] Dosage 00:00:00 [facility] DTAP 1997 Completed [facility] 00:00:00 [facility] HIB 3 Dose Schedule 1997 Completed [facility] 00:00:00 [facility] Hep B, Adol or Pedi 1997 Completed [facility] Dosage 00:00:00 [facility] DTAP 1997 Completed [facility] 00:00:00 [facility] HIB 3 Dose Schedule 1997 Completed [facility] 00:00:00 [facility] Hep B, Adol or Pedi 1997 Completed [facility] Dosage 00:00:00 [facility] DTAP 1997 Completed [facility] 00:00:00 [facility] HIB 3 Dose Schedule 1997 Completed [facility] 00:00:00 [facility] Hep B, Adol or Pedi 1997 Completed [facility] Dosage 00:00:00 [facility] DTAP 1997 Completed [facility] 00:00:00 [facility] DTAP 1997 Completed [facility] 00:00:00 [facility] HIB 3 Dose Schedule 1997 Completed [facility] 00:00:00 [facility] Hep B, Adol or Pedi 1997 Completed [facility] Dosage 00:00:00 [facility] HIB 3 Dose Schedule 1997 Completed [facility] 00:00:00 [facility] DTAP 1997 Completed [facility] 00:00:00 [facility] HIB 3 Dose Schedule 1997 Completed [facility] 00:00:00 [facility] Hep B, Adol or Pedi 1997 Completed [facility] Dosage 00:00:00 [facility] Hep B, Adol or Pedi 1997 Completed [facility] Dosage 00:00:00 [facility] DTAP 1997 Completed [facility] 00:00:00 [facility] HIB 3 Dose Schedule 1997 Completed [facility] 00:00:00 [facility] Hep B, Adol or Pedi 1997 Completed [facility] of Dosage 00:00:00 [facility] DTAP 1997 Completed [facility] 00:00:00 [facility] HIB 3 Dose Schedule 1997 Completed [facility] 00:00:00 [facility] Hep B, Adol or Pedi 1997 Completed [facility] Dosage 00:00:00 [facility] DTAP 1997 Completed [facility] 00:00:00 [facility] HIB 3 Dose Schedule 1997 Completed [facility] 00:00:00 [facility] Hep B, Adol or Pedi 1997 Completed [facility] Dosage 00:00:00 [facility] DTAP 1997 Completed [facility] 00:00:00 [facility] HIB 3 Dose Schedule 1997 Completed [facility] 00:00:00 [facility] Hep B, Adol or Pedi 1997 Completed [facility] Dosage 00:00:00 [facility] DTAP 1997 Completed [facility] 00:00:00 [facility] HIB 3 Dose Schedule 1997 Completed [facility] 00:00:00 [facility] Hep B, Adol or Pedi 1997 Completed [facility] Dosage 00:00:00 [facility] DTAP 1997 Completed [facility] 00:00:00 [facility] HIB 3 Dose Schedule 1997 Completed [facility] 00:00:00 [facility] Hep B, Adol or Pedi 1997 Completed [facility] Dosage 00:00:00 [facility] DTAP 1997 Completed [facility] 00:00:00 [facility] HIB 3 Dose Schedule 1997 Completed [facility] 00:00:00 [facility] Hep B, Adol or Pedi 1997 Completed [facility] Dosage 00:00:00 [facility] DTAP 1997 Completed [facility] 00:00:00 [facility] HIB 3 Dose Schedule 1997 Completed [facility] 00:00:00 [facility] Hep B, Adol or Pedi 1997 Completed [facility] Dosage 00:00:00 [facility] DTAP 1997 Completed [facility] 00:00:00 [facility] DTAP 1997 Completed [facility] 00:00:00 [facility] HIB 3 Dose Schedule 1997 Completed [facility] 00:00:00 [facility] Hep B, Adol or Pedi 1997 Completed [facility] Dosage 00:00:00 [place] [facility] HIB 3 Dose Schedule 1997 Completed Unive rsity of 00:00:00 [facility] DTAP 1997 Completed University of 00:00:00 [facility] HIB 3 Dose Schedule 1997 Completed Unive rsity of 00:00:00 [facility] Hep B, Adol or Pedi 1997 Completed Unive rsity of Dosage 00:00:00 [facility] Hep B, Adol or Pedi 1997 Completed Unive rsity of Dosage 00:00:00 [facility] Branch DTAP 1997 Completed University of 00:00:00 [facility] HIB 3 Dose Schedule 1997 Completed Unive rsity of 00:00:00 [facility] Hep B, Adol or Pedi 1997 Completed Unive rsity of Dosage 00:00:00 [facility] DTAP 1997 Completed University of 00:00:00 [facility] HIB 3 Dose Schedule 1997 Completed Unive rsity of 00:00:00 [facility] Hep B, Adol or Pedi 1997 Completed Unive rsity of Dosage 00:00:00 [facility] Polio (IPV/OPV) 1997 Completed Universit y of 00:00:00 [facility] Polio (IPV/OPV) 1997 Completed Universit y of 00:00:00 [facility] Polio (IPV/OPV) 1997 Completed Universit y of 00:00:00 [facility] Branch Polio (IPV/OPV) 1997 Completed Universit y of 00:00:00 [facility] Branch Polio (IPV/OPV) 1997 Completed Universit y of 00:00:00 [facility] Branch Polio (IPV/OPV) 1997 Completed Universit y of 00:00:00 [facility] Branch Polio (IPV/OPV) 1997 Completed Universit y of 00:00:00 [facility] Branch Polio (IPV/OPV) 1997 Completed Universit y of 00:00:00 [facility] Branch Polio (IPV/OPV) 1997 Completed Universit y of 00:00:00 [facility] Polio (IPV/OPV) 1997 Completed Universit y of 00:00:00 [facility] Polio (IPV/OPV) 1997 Completed Universit y of 00:00:00 [facility] Polio (IPV/OPV) 1997 Completed Universit y of 00:00:00 [facility] Polio (IPV/OPV) 1997 Completed Universit y of 00:00:00 [facility] Polio (IPV/OPV) 1997 Completed Universit y of 00:00:00 [facility] Polio (IPV/OPV) 1997 Completed Universit y of 00:00:00 [facility] Polio (IPV/OPV) 1997 Completed Universit y of 00:00:00 [facility] Polio (IPV/OPV) 1997 Completed Universit y of 00:00:00 [facility] Polio (IPV/OPV) 1997 Completed Universit y of 00:00:00 [facility] Polio (IPV/OPV) 1997 Completed Universit y of 00:00:00 [facility] Polio (IPV/OPV) 1997 Completed Universit y of 00:00:00 [facility] Vital Signs Vital Name Observation Time Observation Value Comments Source BP Diastolic 2020-09-12 00:00:00 55 mm[Hg] [facility] Height 2020-09-12 00:00:00 61 [in_i] [facility] BMI (Body Mass 2020-09-12 00:00:00 24.6 kg/m2 [place] referral [facility] Index) [facility] BP Systolic 2020-09-12 00:00:00 109 mm[Hg] [facility] Body Weight 2020-09-12 00:00:00 2083 [oz_av] [facility] Systolic blood 2020-04-04 22:53:00 107 mm[Hg] Univer sity of pressure [facility] Diastolic blood 2020-04-04 22:53:00 73 mm[Hg] Unive rsity of [facility] Heart rate 2020-04-04 22:53:00 81 /min Univers ty [facility] Body temperature 2020-04-04 22:53:00 37.22 Roxanne [facility] Respiratory rate 2020-04-04 22:53:00 16 /min Univ [facility] Body height 2020-04-04 22:53:00 154.9 cm Univers ty [facility] Body weight 2020-04-04 22:53:00 54.432 kg Univers ty [facility] BMI 2020-04-04 22:53:00 22.67 kg/m2 [facility] Oxygen saturation in 2020-04-04 22:53:00 95 /min University Arterial blood by [facility] Pulse oximetry Branch Systolic blood 2020-04-04 22:53:00 107 mm[Hg] Univer sity of [facility] Diastolic blood 2020-04-04 22:53:00 73 mm[Hg] Unive rsity of pressure [facility] Heart rate 2020-04-04 22:53:00 81 /min Universi ty [facility] Body temperature 2020-04-04 22:53:00 37.22 Roxanne [facility] Respiratory rate 2020-04-04 22:53:00 16 /min Univ [facility] Body height 2020-04-04 22:53:00 154.9 cm Universi ty [facility] Body weight 2020-04-04 22:53:00 54.432 kg Universi ty of [facility] BMI 2020-04-04 22:53:00 22.67 kg/m2 Universi ty of [facility] Oxygen saturation in 2020-04-04 22:53:00 95 /min University of Arterial blood by [facility] Pulse oximetry Branch Systolic blood 2020-04-01 11:02:00 113 mm[Hg] Univer sity of pressure [facility] Diastolic blood 2020-04-01 11:02:00 58 mm[Hg] Unive rsity of pressure [facility] Heart rate 2020-04-01 11:02:00 71 /min Universi ty of [facility] Respiratory rate 2020-04-01 11:02:00 16 /min Univ ersity of [facility] Oxygen saturation in 2020-04-01 11:02:00 95 /min University of Arterial blood by [facility] Pulse oximetry Branch Body temperature 2020-04-01 09:09:00 36.89 Roxanne Univ ersity of [facility] Body height 2020-04-01 05:45:00 152.4 cm Universi ty [facility] Body weight 2020-04-01 05:45:00 54.432 kg [facility]i [facility] BMI 2020-04-01 05:45:00 23.44 kg/m2 Universi ty of [facility] Systolic blood 2020-04-01 11:02:00 113 mm[Hg] Univer sity of pressure [facility] Diastolic blood 2020-04-01 11:02:00 58 mm[Hg] Unive rsity of pressure [facility] Heart rate 2020-04-01 11:02:00 71 /min Universi ty [facility] Respiratory rate 2020-04-01 11:02:00 16 /min Univ ersity of [facility] Oxygen saturation in 2020-04-01 11:02:00 95 /min University of Arterial blood by [facility] Pulse oximetry Branch Body temperature 2020-04-01 09:09:00 36.89 Roxanne Univ ersity of [facility] Body height 2020-04-01 05:45:00 152.4 cm Universi ty [facility] Body weight 2020-04-01 05:45:00 54.432 kg Universi [facility] BMI 2020-04-01 05:45:00 23.44 kg/m2 [facility] BP Diastolic 2020-02-01 00:00:00 62 mm[Hg] [facility] Height 2020-02-01 00:00:00 61 [in_i] [facility] BMI (Body Mass 2020-02-01 00:00:00 22.9 kg/m2 [place] referral nurse Index) [facility] BP Systolic 2020-02-01 00:00:00 106 mm[Hg] [facility] Body Weight 2020-02-01 00:00:00 1942 [oz_av] [facility] BP Diastolic 2020-01-04 00:00:00 64 mm[Hg] [facility] Height 2020-01-04 00:00:00 61 [in_i] [place] [facility] BMI (Body Mass 2020-01-04 00:00:00 22.5 kg/m2 [place] referral nurse Index) [facility] BP Systolic 2020-01-04 00:00:00 112 mm[Hg] [facility] Body Weight 2020-01-04 00:00:00 1905 [oz_av] [place] [facility] BP Diastolic 2019-12-07 00:00:00 61 mm[Hg] [facility] Height 2019-12-07 00:00:00 61 [in_i] [place] [facility] BMI (Body Mass 2019-12-07 00:00:00 23.3 kg/m2 [place] referral nurse Index) [facility] BP Systolic 2019-12-07 00:00:00 122 mm[Hg] [facility] Body Weight 2019-12-07 00:00:00 1974 [oz_av] [facility] BP Diastolic 2019-11-30 00:00:00 68 mm[Hg] [place] [facility] Height 2019-11-30 00:00:00 61 [in_i] [place] [facility] BMI (Body Mass 2019-11-30 00:00:00 22.7 kg/m2 [facility] referral nurse Index) [facility] BP Systolic 2019-11-30 00:00:00 114 mm[Hg] [facility] Body Weight 2019-11-30 00:00:00 1923 [oz_av] [place] [facility] Systolic blood 2019-08-18 08:21:00 125 mm[Hg] Univer sity [facility] Diastolic blood 2019-08-18 08:21:00 63 mm[Hg] [facility] 2019-08-18 08:21:00 73 /min [facility] Body temperature 2019-08-18 08:21:00 37.11 Roxanne [facility] Respiratory rate 2019-08-18 08:21:00 20 /min [facility] Body height 2019-08-18 08:21:00 154.9 cm [facility] Body weight 2019-08-18 08:21:00 58.968 kg [facility] BMI 2019-08-18 08:21:00 24.56 kg/m2 [facility] Oxygen saturation in 2019-08-18 08:21:00 100 /min [facility] blood by [facility] Pulse oximetry Branch Procedures Procedure Date / Time Performing Clinician Source Performed US, transvaginal 2020-09-12 00:00:00 Clydeporsche [facility] CHEST PULMONARY 2020-04-01 07:54:16 Rodrigo Brewster [facility] ANGIOGRAM Medical Branch D-DIMER 2020-04-01 07:00:00 Rodrigo Brewster [place] [facility] POCT TEST 2020-04-01 06:45:00 Rodrigo Brewster [facility] BLOOD CULTURE SCREEN 2020-04-01 06:38:00 Rodrigo Brewster [facility] TROPONIN I 2020-04-01 06:27:00 Rodrigo Brewster [place] [facility] COMP. METABOLIC PANEL 2020-04-01 06:27:00 Rodrigo Brewster [facility] ([id number]) [facility] [place] CBC WITH DIFF 2020-04-01 06:27:00 Rodrigo Brewster [place] [facility] URINALYSIS 2020-04-01 06:27:00 Rodrigo Brewster [place] [facility] COVID-19 (ID NOW RAPID 2020-04-01 06:27:00 Rodrigo Brewster [facility] TESTING) [facility] LACTIC ACID WHOLE BLOOD 2020-04-01 06:26:00 Rodrigo Brewster [facility] CONSENT/REFUSAL FOR 2020-04-01 05:34:16 Doctor Unassigned, No [facility] DIAGNOSIS AND TREATMENT [facility] XR SHOULDER <2 VW RIGHT 2019-08-18 09:03:52 Kayode Palacios [facility] ASSIGNMENT OF BENEFITS 2019-08-18 08:11:25 Doctor Unassigned, No [facility] Procedure on Heart Karen Epi scopal [facility] Program Encounters Start End Encounter Admission Attending Care Care Encounter Source Date/Time Date/Time Type Type Clinicians Facility Department ID 2020-12-29 Emergency [facility] [id number] [facility] 2020-12-29 Emergency [facility] [id number] Univers 20:46:50 [facility] 2020-10-12 2020-10-12 Outpatient AMBREEN_SHAMA KUO [facility] 109 [id number] [place] 12:11:00 12:11:00 KYLE [id number] [facility] 2020-10-12 2020-10-12 Stefan KUO [place] - [id number] [place] 00:00:00 00:00:00 MD Robert: Karen cat 1700 [facility]isco p Ramos [facility] Jeff, [facility] [phone] h , Ph. Program (979) 2020-09-12 2020-09-12 Outpatient [facility] 109 [id number] [place] 05:10:00 05:10:00 HANA 16969 [facility] 2020-09-12 2020-09-12 Ely Mayers [facility] [place] - [id number] M atagor 00:00:00 00:00:00 JEFE Pacheco: Karen cat [id number] [place] [facility] op 59 [facility] Program [phone] , Ph. 2020-08-29 2020-08-29 Outpatient [facility] 109 [place] 04:15:00 04:15:00 HANA 96594 [facility] 2020-08-29 2020-08-29 Long [facility] - [id number] M atagor 00:00:00 00:00:00 Karen Day CALL OUT OPERATOR: [id number] [facility] Epi scop US 59 [facility] Program [phone] , Ph. 2020-08-02 2020-08-02 Outpatient [facility] 109 [id number] [place] 01:02:00 01:02:00 HANA 53016 [facility] 2020-08-01 2020-08-01 Outpatient [facility] 109 [id number] [place] 04:57:00 04:57:00 HANA 11123 [facility] 2020-08-01 2020-08-01 Long [facility] [place] - [id number] M atagor 00:00:00 00:00:00 Karen Day CALL OUT OPERATOR: [phone] Catholic Epis copy cutter Ramos [facility], [facility] [phone] h , Ph. Program (972) 2020-06-27 2020-06-27 Outpatient AMBREEN_FAR MEHOP MEHOP 109 [place] 01:05:00 01:05:00 HANA 97871 [facility] 2020 2020 Outpatient AMBREEN_FAR MEHOP KSHOP 109 [place] 04:43:00 04:43:00 HANA 94083 [facility] 2020 2020 Long [facility] [place] - [id number] M atagor 00:00:00 00:00:00 Karen Day da CALL OUT OPERATOR: [id number] [facility] Epi scop US 59 [facility] [place] Program [address] , Ph. 2020-05-24 2020-05-24 Outpatient AMBREEN_FAR MEHOP [facility] 109 [place] 02:37:00 02:37:00 HANA 91779 [facility] 2020-05-24 2020-05-24 Outpatient AMBREEN_FAR MEHOP KSHOP 109 [place] 02:37:00 02:37:00 HANA 42343 [facility] 2020-05-24 2020-05-24 Long [facility] [place] - [id number] M atagor 00:00:00 00:00:00 Karen Day CALL OUT OPERATOR: [id number] [facility] Epi scop US 59 [facility] [place] Program [address] , Ph. 2020-05-21 2020-05-21 Outpatient AMBREEN_FAR MEHOP MEHOP 109 [place] 02:03:00 02:03:00 HANA 27018 [facility] 2020-05-04 2020-05-04 Outpatient AMBREEN_FAR MEHOP KSHOP 109 [place] 12:25:00 12:25:00 HANA 88198 [facility] 2020-05-04 2020-05-04 Outpatient [facility] 109 [id number] [place] 12:25:00 12:25:00 HANA 89057 [facility] 2020-05-04 2020-05-04 Stefan Mayers [facility] [place] - [id number] [place] 00:00:00 00:00:00 MD Robert: Karen cat [id number] [facility] op 59 HOP - [facility] [address], [place], [place] Program [address] , Ph. 2020-04-19 2020-04-19 Outpatient [facility] 109 [place] 02:35:00 02:35:00 HANA 06446 [facility] 2020-04-04 2020-04-04 Emergency [facility] [id number] 16:55:00 18:45:00 Petra Reed [id number] [place] [address] [place] [address] [id number] 084 2020-04-04 2020-04-04 Emergency [facility] [id number] Univers 16:55:00 18:45:00 Petra Reed [id number] i ty of [place] [id number] [facility] [phone] [place] 084 Branch 2020-04-02 2020-04-02 Letter OG Sprague [id number] Univers 00:00:00 00:00:00 (Out) Julieth ELY [id number] it y [facility] [id number] Cory [id number] [place] 019 Branch 2020-04-02 2020-04-02 Letter OG Sprague [id number] 00:00:00 00:00:00 (Out) Julieth ELY [id number] [facility] [id number] [id number] 2020-03-31 2020-04-01 Emergency Rodrigo Brewster [facility] [id number] Univers 23:53:00 05:34:00 [place] Reed [id number] i ty of [place] 4.2.7.2.686 [facility] [id number] [place] [address] Branch 2020-03-31 2020-04-01 Emergency Rodrigo Brewster [facility] [id number] 23:53:00 05:34:00 [place] Reed [id number] [place] [id number] [place] [id number] 084 2020-03-14 2020-03-14 Outpatient [facility] 109 [id number] [place] 01:03:00 01:03:00 HANBrenna 92468 [facility] 2020-03-08 2020-03-08 Outpatient [facility] 109 [id number] [place] 10:25:00 10:25:00 HANA 43023 [facility] 2020-03-07 2020-03-07 Outpatient [facility]BREEN[facility] 109 [id number] [place] 05:07:00 05:07:00 HANBrenna 32991 [facility] 2020-03-07 2020-03-07 [facility] [place] - [id number] M atagor 00:00:00 00:00:00 Karen Day da CALL OUT OPERATOR: [id number] Catholic Epi scop US 59 [facility] - [facility] [address], [place] Program [address] , Ph. 2020-02-29 2020-02-29 Outpatient [facility] 109 [id number] [place] 05:13:00 05:13:00 HANBrenna 10305 [facility] 2020-02-29 2020-02-29 Long [place] - [id number] atagor 00:00:00 00:00:00 Karen Day da CALL OUT OPERATOR: [id number] Catholic Epi scop US 59 [facility] [address], [facility] [place] Program [id number] , Ph. 2020-02-22 2020-02-22 Outpatient [facility] 109 [id number] [place] 04:29:00 04:29:00 HANA 53653 [facility] 2020-02-22 2020-02-22 Long KUO [place] - [id number] atagor 00:00:00 00:00:00 Karen Day da CALL OUT OPERATOR: [id number] Catholic Epi scop US 59 [facility] [address], [facility] [place] Program [id number] , Ph. 2020-02-09 2020-02-09 Outpatient [facility] 109 [id number] [place] 02:35:00 02:35:00 HANA 80950 [facility] 2020-02-08 2020-02-08 Outpatient [facility] 109 [id number] [place] 05:05:00 05:05:00 HANA 03239 [facility] 2020-02-08 2020-02-08 Long [place] - [id number] at[place]or 00:00:00 00:00:00 Karen Day CALL OUT OPERATOR: [id number] [facility] Epi scop US 59 [facility] [address], [facility] [place] Program [phone] , Ph. 2020-02-05 2020-02-05 DEVON Walker 1.2.840.114 [id number] Univers 00:00:00 00:00:00 [facility] [id number] it y of [place] [id number] Cory as [place] [phone] [place] [address] Branch Office Building 2020-02-05 2020-02-05 [facility] 1.2.840.114 [id number] 00:00:00 00:00:00 [facility] [id number] [place] [id number] [place] [id number] Medical [facility] Office Building 2020-02-01 2020-02-01 Outpatient [facility] 109 [id number] [place] 05:01:00 05:01:00 HANBrenna 29953 [facility] Program 2020-02-01 2020-02-01 Ely Mayers [facility] [place] - [id number] M atagor 00:00:00 00:00:00 JEFE Pacheco: Karen cat [id number] [facility] op 59 HOP - [facility] [address], [facility] [place] Program [phone] , Ph. 2020-01-31 2020-01-31 [facility] 1.2.840.114 [id number] Univers 00:00:00 00:00:00 [facility] [id number] it y of [place] [id number] [place] as [place] [id number] [address] Office [facility] 2020-01-31 2020-01-31 [facility] 1.2.840.114 [id number] 00:00:00 00:00:00 [facility] [id number] [place] [id number] [place] [id number] Medical [facility] Office Building 2020-01-20 2020-01-20 Outpatient [facility] 109 [id number] [place] 02:18:00 02:18:00 HANBrenna 97448 da Episcop [facility] Outre h Program 2020-01-19 2020-01-19 [facility] 1.2.840.114 [id number] Univers 00:00:00 00:00:00 [facility] [id number] it y of [place] 4.2.7.2.686 [place] as [place] [id number] Medi su[facility] 149 Branch Office Building 2020-01-19 2020-01-19 True Kessler [facility] 1.2.840.114 [id number] 00:00:00 00:00:00 [facility] [id number] [place] [id number] [place] [id number] Medical [facility] Office Building 2020-01-16 2020-01-16 Cecilia Hein [facility] 1.2.840.114 [id number] Univers 00:00:00 00:00:00 Management [facility] [id number] ity of [place]2.686 [place] [id number] [place] [address] Branch Office Building 2020-01-16 2020-01-16 Cecilia Hein [facility] 1.2.840.114 [id number] 00:00:00 00:00:00 Management M Health [id number] [place] 4.2.7.2.686 [place] [id number] Medical [facility] Office Building 2020-01-13 2020-01-13 Cecilia Hein [facility] 1.2.840.114 [id number] 00:00:00 00:00:00 Management M Health [id number] [place] [id number] [place] [id number] Medical [facility] Office Building 2020-01-13 2020-01-13 Cecilia Hein [facility] 1.2.840.114 [id number] [facility] 00:00:00 00:00:00 Management M Health [id number] ity of [id number] [place] [phone] [place] [address] Branch Office Building 2020-01-11 2020-01-11 Outpatient [facility] 109 [id number] [place] 03:04:00 03:04:00 KYLE 60372 [facility] 2020-01-11 2020-01-11 Long [facility] [place] - [id number] M atagor 00:00:00 00:00:00 Karen Day CALL OUT OPERATOR: [id number] Catholic Epi scop US 59 [facility] Health [address], [facility] [place] Program [id number] , Ph. 2020-01-10 2020-01-10 Juan Kessler [facility] 1.2.840.114 [id number] 00:00:00 00:00:00 Management [facility] [id number] [place] [id number] [place] [id number] [place] [address] Office Building 2020-01-10 2020-01-10 Juan Kessler [facility] 1.2.840.114 [id number] Univers 00:00:00 00:00:00 Management [facility] [id number] ity of [place] 4.2.7.2.686 [place] as [place] [id number] [address] Office Building 2020-01-04 2020-01-04 Outpatient [facility] 109 [id number] [place] 05:02:00 05:02:00 HANA 88343 [facility] 2020-01-04 2020-01-04 Ely Mayers [facility] [place] - [id number] M atagor 00:00:00 00:00:00 JEFE Pacheco: Karen cat 11830 [facility] Episc op 59 [facility] [address], [facility] [place] Program [address] , Ph. 2019-12-29 2019-12-29 [facility]ng [facility] 1.2.840.114 [id number] Univers 00:00:00 00:00:00 [facility] [id number] it y of [place] [id number] [place] as [place] [phone] [address] Office Building 2019-12-28 2019-12-28 Outpatient [facility] 109 [id number] [place] 04:59:00 04:59:00 HANA 84654 [facility] 2019-12-28 2019-12-28 Long [facility] [place] - [id number] M atagor 00:00:00 00:00:00 Karen Day CALL OUT OPERATOR: [id number] Catholic Epi scop US 59 [facility] - [facility] [address], [facility] [place] Program [address] , Ph. 2019-12-27 2019-12-27 True Kessler [facility] 1.2.840.114 [id number] Univers 00:00:00 00:00:00 Amyn SPECIALTY 350.1.13.10 ity [facility] [id number] Cory as COLONY [id number] [place] [address] Branch 2019-12-23 2019-12-23 Outpatient AMBREEN_FAR KSHOP [facility] 109 [id number] [place] 05:19:00 05:19:00 HANA 91447 [facility] 2019-12-23 2019-12-23 Stefan Mayers [facility] [place] - [id number] [place] 00:00:00 00:00:00 MD Robert: Karen cat [id number] [place] [facility] op 59 [facility] [address], [facility] [place] Program [phone] , Ph. 2019-12-21 2019-12-21 Outpatient [facility] 109 [id number]- [place] 02:10:00 02:10:00 HANA 29629 [facility] Program 2019-12-21 2019-12-21 Long [place] - [id number] M atagor 00:00:00 00:00:00 Karen Day CALL OUT OPERATOR: [id number] [facility] [address] [facility] [address], [facility] [place] Program [phone] , Ph. 2019-12-14 2019-12-14 Outpatient AMBREEN_FAR KSHOP [facility] [phone] [place] 03:55:00 03:55:00 HANA 18819 [facility] 2019-12-14 2019-12-14 Long KSHERMELINDA [place] - [id number] [place] 00:00:00 00:00:00 Karen Day CALL OUT OPERATOR: [id number] [facility] [address] [facility] [address], [facility] [place] Program [address] , Ph. 2019-12-07 2019-12-07 Outpatient AMBREEN_FAR [facility] [phone] [place] 05:18:00 05:18:00 HANA 58894 [facility] 2019-12-07 2019-12-07 Long KUO [place] - [id number] [place] 00:00:00 00:00:00 Karen Day CALL OUT OPERATOR: [id number] [facility] [address] [facility], [facility] [place] Program [address] , Ph. 2019-11-30 2019-11-30 Outpatient AMBREEN_[facility] 109 879- [place] 05:22:00 05:22:00 HANA 98124 [facility] 2019-11-30 2019-11-30 Ely Mayers [facility] [place] - [id number] [place] 00:00:00 00:00:00 JEFE Pacheco: Karen cat [id number] [place] Catholic Episc op [address] [facility] [address], [facility] [place] Program [address] , Ph. 2019-11-23 2019-11-23 Outpatient AMBREEN_[facility] [phone] [place] 05:19:00 05:19:00 HANA 74956 [facility] Program 2019-11-23 2019-11-23 Long [place]UO [place] - [id number] [place] 00:00:00 00:00:00 Karen Day CALL OUT OPERATOR: [id number] [facility] [address] [facility] [address], [facility] [place] Program [phone] , Ph. 2019-11-222019-11-22 Outpatient AMBREEN_FAR [facility] [phone] [place] 11:01:00 11:01:00 HANA 00457 [facility] 2019-11-16 2019-11-16 Outpatient AMBREEN_FAR [facility] [phone] [place] 02:26:00 02:26:00 HANA 61662 [facility] 2019-11-16 2019-11-16 Long [place]UO [place] - [id number] [place] 00:00:00 00:00:00 Karen Day da CALL OUT OPERATOR: [id number] [facility] [address] [address] [facility] [place] Program [address] , Ph. 2019-11-02 2019-11-02 Outpatient AMBREEN_FAR [facility] 109 879- [place] 02:07:00 02:07:00 HANA 49397 [facility] 2019-11-02 2019-11-02 Long [place]UO [place] - [id number] [place] 00:00:00 00:00:00 Karen Day da CALL OUT OPERATOR: [id number] [facility] US [address] [facility] [place] Program [address] , Ph. 2019-10-26 2019-10-26 Outpatient AMBREEN_FAR [facility] 109 879- [place] 02:40:00 02:40:00 SARINAA 54318 [facility] 2019-10-26 2019-10-26 Long [place]UO [place] - [id number] [place] 00:00:00 00:00:00 Karen Day da CALL OUT OPERATOR: [id number] [facility] [address] [facility] [place] Program [address] , Ph. 2019-10-24 2019-10-24 Outpatient AMBREEN_FAR [facility] ME[facility] 109 879- [place] 01:15:00 01:15:00 HANBrenna 11290 [facility] 2019-10-20 2019-10-20 Outpatient AMBREEN_SHAMA KUO [facility] 109 [place] 03:07:00 03:07:00 HANA 96460 [facility] 2019-09-22 2019-09-22 True Kessler [facility] [id number] Univers 00:00:00 00:00:00 Amyn SPECIALTY [id number] ity of [facility] 4.2.7.2.686 Cory as [place] [phone] [place] 2019-08-18 2019-08-18 [facility] [id number] Univers 03:26:36 04:39:00 Kayode [place] [id number] i ty [facility] 4.2.7.2.[place] [phone] [place] 084 [place] 2019-08-18 2019-08-18 Emergency [facility] ERT [id number] Univers 03:26:36 04:39:00 KAYODE ity of [facility] 2019-08-18 2019-08-18 Orders Doctor OG [id number] Univers 00:00:00 00:00:00 Only Unassigned, SOLIS [id number] ity of [place] [facility] 4.2.7.2.686 Cory as [phone] [place] 00[address] [place] 2019-08-13 2019-08-13 [facility] 1.2.840.114 [id number] Univers 00:00:00 00:00:00 Amyn SPECIALTY [id number] ity of [facility] 4.2.7.2.686 Cory as [place] [phone] [place] 149 [place] 2019-07-25 2019-07-25 True Kessler [facility] 1.2.840.114 [id number] Univers 00:00:00 00:00:00 Amyn SPECIALTY [id number] ity of [facility] 4.2.7.2.686 [place] as [place] [phone] [address] 2019-06-29 2019-06-29 [facility] 1.2.840.114 [id number] Univers 00:00:00 00:00:00 Amyn SPECIALTY [id number] ity of [facility] 4.2.7.2.686 Cory as [place] [phone] [address] 2019-05-29 2019-05-29 True [facility] 1.2.840.114 [id number] Univers 00:00:00 00:00:00 Amyn SPECIALTY [id number] ity of [facility] 4.2.7.2.686 [place] as [place] [phone] [address] 2018-10-26 2018-10-26 True [facility] 1.2.840.114 [id number] Univers 00:00:00 00:00:00 Amyn SPECIALTY [id number] ity of [facility] 4.2.7.2.686 [place] [phone] [address] Results Test Description Test Time Test Comments Results Result Comments Source Acute hepatitis 2000 panel - Serum 2020-09-13 00:00:00 Test Item Value Reference Range Interpretation Comme nts Hepatitis A virus IgM Ab [Presence] in Serum or Plasma non-r eactive non-reactive by Immunoassay (test code = 92589-5) Hepatitis B virus surface Ag [Presence] in Serum or non-reactive no n-reactive Plasma by Immunoassay (test code = 5196-1) Hepatitis B virus core IgM Ab [Presence] in Serum or non-reactive n on-reactive Plasma by Immunoassay (test code = 65526-8) Hepatitis C virus Ab [Presence] in Serum or Plasma by non-reacti ve non-reactive Immunoassay (test code = 37510-7) Hepatitis C virus Ab Signal/Cutoff in Serum or Plasma 0.02 <1.00 by Immunoassay (test code = 44954-3) [facility] ProgramHIV 1+2 Ab+HIV1 p24 Ag [Presence] in Serum or Plasma by [id number] 00:00:00 Test Item Value Reference Range Interpretation Comments HIV 1+2 Ab+HIV1 p24 Ag non-reactive non-reactive [Presence] in Serum or Plasma by Immunoassay (test code = 40406-0) [facility] - Serum or [id number] 00:00:00 Test Item Value Reference Range Interpretation Comments Glucose [Mass/volume] 90 mg/dL 65-99 in Serum or Plasma (test code = 2345-7) Urea nitrogen 12 mg/dL 7-25 [Mass/volume] in Serum or Plasma (test code = 3094-0) Creatinine 0.69 mg/dL 0.50-1.10 [Mass/volume] in Serum or Plasma (test code = 2160-0) Glomerular filtration 123 See_Comment [Auto mated rate/1.73 sq mL/min/1.73m2 message] The M.predicted among system [facility] non-blacks [Volume generated this Rate/Area] in Serum, result Plasma or Blood by transmitt ed Creatinine-based reference r oliva: formula (CKD-EPI) > or = 60. The (test code = 85264-8) refere nce range was not used to interpret this result as normal/abnormal . Glomerular filtration 142 See_Comment [Auto mated rate/1.73 sq mL/min/1.73m2 message] The M.predicted among system [facility] blacks [Volume generated thi s Rate/Area] in Serum, result Plasma or Blood by transmitt ed Creatinine-based reference r oliva: formula (CKD-EPI) > or = 60. The (test code = 25663-0) refere nce range was not used to interpret this result as normal/abnormal . Urea not applicable 6-22 nitrogen/Creatinine [Mass Ratio] in Serum or Plasma (test code = 3097-3) Sodium [Moles/volume] 140 mmol/L 135-146 in Serum or Plasma (test code = 2951-2) Potassium 4.4 mmol/L 3.5-5.3 [Moles/volume] in Serum or Plasma (test code = 2823-3) Chloride 107 mmol/L 98-110 [Moles/volume] in Serum or Plasma (test code = 5-0) Carbon dioxide, total 25 mmol/L 20-32 [Moles/volume] in Serum or Plasma (test code = 2027-) Calcium [Mass/volume] 9.3 mg/dL 8.6-10.2 in Serum or Plasma (test code = 49547-3) Protein [Mass/volume] 7.0 g/dL 6.1-8.1 in Serum or Plasma (test code = 2885-2) Albumin [Mass/volume] 4.4 g/dL 3.6-5.1 in Serum or Plasma (test code = 1751-7) Globulin [Mass/volume] 2.6 g/dL (calc) 1.9-3.7 in Serum by calculation (test code = 77023-4) Albumin/Globulin [Mass 1.7 (calc) 1.0-2.5 Ratio] in Serum or Plasma (test code = 1759-0) Bilirubin.total 0.6 mg/dL 0.2-1.2 [Mass/volume] in Serum or Plasma (test code = 1975-2) Alkaline phosphatase 104 U/L 31-125 [Enzymatic activity/volume] in Serum or Plasma (test code = 6768-6) Aspartate 18 U/L 10-30 aminotransferase [Enzymatic activity/volume] in Serum or Plasma (test code = 1920-8) Alanine 17 U/L 6-29 aminotransferase [Enzymatic activity/volume] in Serum or Plasma (test code = 1742-6) [facility] W Auto Differential panel - Blood 2020-09-13 00:00:00 Test Item Value Reference Range Interpretation Comments Leukocytes [#/volume] in 3.6 thousand/uL 3.8-10.8 L Blood by Automated count (test code = 6690-2) Erythrocytes [#/volume] in 4.67 million/uL 3.80-5.10 Blood by Automated count (test code = 789-8) Hemoglobin [Mass/volume] in 13.4 g/dL 11.7-15.5 Blood (test code = 718-7) Hematocrit [Volume Fraction] 40.9 % 35.0-45.0 of Blood by Automated count (test code = 4544-3) MCV [Entitic volume] by 87.6 fL 80.0-100.0 Automated count (test code = 787-2) MCH [Entitic mass] by 28.7 pg 27.0-33.0 Automated count (test code = 785-6) MCHC [Mass/volume] by 32.8 g/dL 32.0-36.0 Automated count (test code = 786-4) Erythrocyte distribution 12.6 % 11.0-15.0 width [Ratio] by Automated count (test code = 788-0) Platelets [#/volume] in Blood 165 thousand/uL 140-400 by Automated count (test code = 777-3) Platelet mean volume [Entitic 13.5 fL 7.5-12.5 H volume] in Blood by Yue (test code = 776-5) Neutrophils [#/volume] in 2473 cells/uL 7921-5778 Blood by Automated count (test code = 751-8) Lymphocytes [#/volume] in 623 cells/uL 850-3900 L Blood by Automated count (test code = 731-0) Monocytes [#/volume] in Blood 356 cells/uL 200-950 by Automated count (test code = 742-7) Eosinophils [#/volume] in 119 cells/uL 15-500 Blood by Automated count (test code = 711-2) Basophils [#/volume] in Blood 29 cells/uL 0-200 by Automated count (test code = 704-7) Neutrophils/100 leukocytes in 68.7 % Blood by Automated count (test code = 770-8) Lymphocytes/100 leukocytes in 17.3 % Blood by Automated count (test code = 736-9) Monocytes/100 leukocytes in 9.9 % Blood by Automated count (test code = 5905-5) Eosinophils/100 leukocytes in 3.3 % Blood by Automated count (test code = 713-8) Basophils/100 leukocytes in 0.8 % Blood by Automated count (test code = 706-2) [facility]yrotropin [Units/volume] in Serum or Plasma by Detection limit <= 0.005 mIU/[id number] 00:00:00 Test Item Value Reference Range Interpretation Comments Thyrotropin [Units/volume] in 2.74 mIU/L Serum or Plasma (test code = 3016-3) [id number] 00:00:00 Test Item Value Reference Range Interpretation Comments Chlamydia trachomatis rRNA not detected not detected [Presence] in Unspecified specimen by ANSLEY with probe detection (test code = 14348-6) Neisseria gonorrhoeae rRNA not detected not detected [Presence] in Unspecified specimen by ANSLEY with probe detection (test code = 90831-0) comment (test code = comment) [facility]regnancy test, [id number] 00:00:00 Test Item Value Reference Range Interpretation Comments Choriogonadotropin.beta subunit negative negative ( test) [Presence] in Urine (test code = 2112-1) [facility] HospitalReagin Ab [Presence] in Serum by RPR 2020-09-13 00:00:00 Test Item Value Reference Range Interpretation Comments Reagin Ab [Presence] in Serum by non-reactive non-reactive RPR (test code = 79384-9) [facility]ULMON[facility]GIO[facility] 2020-04-01 08:59:58Impression: No CTA evidence for pulmonary embolus. 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 The pulmonary arteries appear to be supplied by the SVC. No fillingdefect is appreciated in the lower lobe pulmonary arteries; evaluation ofthe upper lobe pulmonary arteries is limited by study timing. Correlationwith patient history is recommended; the patient is status post remotemedian sternotomy. Mild diffuse groundglass attenuation in the lungs bilaterally, suggestiveof mild pulmonary edema versus viral respiratory illness. RL: [id number] AFC: [id number] Electronically sig yasmeen by Belkis Perry MD, PhD at 04/01/2020 2:59 AMOrdering physician: Rodrigo BREWSTER Indication:Chest pain, short of breath, elevated d-dimer Comparison: None Technique: CTA of the chest was performed following the administration ofintravenous contrast material. Three-dimensional reformats were generatedfollowing completion of the exam. CT scan was performed according to ALARA(as low as reasonably achievable) policy. Findings: The visualized thyroid gland is within normal limits. The patientisstatus post median sternotomy. There is a cardiac anomaly, with anapparent single ventricle predominantly supplying the thoracic aorta. Thepulmonary arteries appear to be supplied by the SVC. No filling defect isappreciated in the lower lobe pulmonary arteries to suggest pulmonaryembolus. The upper lobe arteries are not well opacified due to studytiming. There is mild diffuse groundglass attenuation in the lungsbilaterally. No pathologically enlarged mediastinal or hilar lymph nodesare identified. No acute process is identified in the upper abdomen. There is splenomegaly,incompletely visualized. Noacute pulmonary process is identified. Bonewindows through the chest demonstrate no osseous destructive lesion. [facility], Radiant Results Inft User - 04/01/2020 3:01 AM CSTOrdering physician: Rodrigo MULLEN BILYEUIndication: Chest pain, short of breath, elevated d-dimerComparison: NoneTechnique: CTA of the chest was performed following the administration ofintravenous contrast material. Three-dimensional reformats were generatedfollowing completion of the exam. CT scan was performed according to ALARA(as lowas reasonably achievable) policy.Findings: The visualized thyroid gland is within normal limits. Thepatientis status post median sternotomy. There is a cardiac anomaly, with anapparent single ventricle predominantly supplying the thoracic aorta. Thepulmonary arteries appear to be supplied by the SVC.No filling defect isappreciated in the lower lobe pulmonary arteries to suggest pulmonaryembolus. The upper lobe arteries are not well opacified due to studytiming. There is mild diffuse groundglass attenuation in the lungsbilaterally. No pathologically enlarged mediastinal or hilar lymph nodesare identified.No acute process is identified in the upper abdomen. There is splenomegaly,incompletely visualized. No acute pulmonary process is identified. Bonewindows through the chest demonstrate no osseousdestructive lesion. 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 The pulmonary arteries appear to be supplied by the SVC. No fillingdefect is appreciated in the lower lobe pulmonary arteries; evaluation ofthe upper lobe pulmonary arteries is limited by study timing. Correlationwith patient history is recomm ended; the patient is status post remotemedian sternotomy.Mild diffuse groundglass attenuation in the lungs bilaterally, suggestiveof mild pulmonary edema versus viral respiratory illness.RL: 460AFC: [id number] signed by Belkis Perry MD, PhD at 04/01/2020 2:59 AMUvalde Memorial HospitalD-[id number] 07:22:00 Test Item Value Reference Interpretation Comments Range D-DIMER (test code = See_Comment H [Autom ated [id number]) message] The system which generated this result transmitted reference range : <0.41 ?g/mL (FEU). The reference range was not used to interpret this result as normal/abnormal . SUSANNA (test code = This test may be SUSANNA) used in conjunction with a clinical pretest probability (PTP) assessment model to exclude venous thromboembolism (VTE) in patients suspected of deep venous thrombosis (DVT) and pulmonary embolism (PE) A D-Dimer value less than 0.50 ?g/ml (FEU) has a negative predicative value of [...] the clinical context, in forming a diagnosis. Lab Interpretation Abnormal (test code = 96296-6) [facility] HospitalSHAJI [id number] 07:13:00 Test Item Value Reference Range Interpretation Comments TROPONIN I (test <0.012 See_Comment [Automated code = [id number]) message] The system which generated this result transmitted reference range : <=0.034 ng/mL. The reference range was not used to interpr et this result as normal/abnormal . SUSANNA (test code = Equal or Less than SUSANNA) 0.034 ng/ml---Normal ?Note: Cardiac troponin begins to rise 3-4 hours after the onset of ischemia. Repeat in 4-6 hours if the sample was drawn within 3-4 hours of the onset of the symptom and found normal. Between 0.035 and 0.120 ng/mL--- Borderline. Questionable myocardial injury or necrosis ? ?Note: Serial measurement may be necessary to confirm or exclude the diagnosis of myocardial injury or necrosis; Clinical correlation (symptoms, EKGs, imaging studies, and others) required; Repeat in 4-6 hours if clinically indicated. ? Equal or Higher than 0.121 ng/mL---Abnormal. Myocardial Injury or Necrosis Likely ? Biotin has been reported to cause a negative bias, interpret results relative to patient's use of biotin. ? Lab Interpretation Normal (test code = 33087-3) [facility] HospitalCOVID-[facility] (ID NOW RAPID TESTING)2020-04-01 07:12:00 Test Item Value Reference Range Interpretation Comments SARS-CoV-2 Rapid ID NOW Not Detected Not Detected (test code = 07181-0) SUSANNA (test code = SUSANNA) ID NOW COVID-19 Assay is an isothermal nucleic acid amplification test intended for the qualitative detection of nucleic acid from SARS-CoV-2 viral RNA in nasopharyngeal (REGISTERED NURSE MATERNAL CHILD) specimens. It is used under Emergency Use Authorization (EUA) by FDA. The limit of detection (LOD) of the assay is 125 Genome Equivalents/mL. A positive result is indicative of the presence of SARS-CoV-2 RNA. ?Clinical correlation with patient history and other diagnostic [...] for repeat patient testing if clinically indicated. Lab Interpretation Normal (test code = 68484-4) [facility]. METABOLIC PANEL (99594)2020-04-01 07:01:00 Test Item Value Reference Range Interpretation Comments NA (test code = 137 mmol/L 135-145 0797286398) K (test code = 3.9 mmol/L 3.5-5 4655485824) CL (test code = 106 mmol/L 98-108 3167410774) CO2 TOTAL (test code = 22 mmol/L 23-31 L 2767640079) AGAP (test code = 2-16 8286933959) BUN (test code = 10 mg/dL 7-23 6714532030) GLUCOSE (test code = 116 mg/dL 70-110 H 8616296569) CREATININE (test code = 0.59 mg/dL 0.5-1.04 8467871425) TOTAL BILI (test code = 0.7 mg/dL 0.1-1.5 0458745102) CALCIUM (test code = 9.1 mg/dL 8.6-10.6 0054773900) T PROTEIN (test code = 7.2 g/dL 6.3-8.2 0223732452) ALBUMIN (test code = 4.1 g/dL 3.5-5 9825333934) ALK PHOS (test code = 106 U/L 34-122 1810658099) ALTv (test code = 15 U/L 5-35 1742-6) AST(SGOT) (test code = 22 U/L 13-40 7547487493) eGFR Calculation mL/min/1.73m2 (Non-) (test code = 9619262822) eGFR Calculation mL/min/1.73m2 () (test code = 2164709884) SUSANNA (test code = SUSANNA) Association of Glomerular Filtration Rate (GFR) and Staging of Kidney Disease* + --+ --+ ------+| GFR (mL/min/1.73 m2) ?| With Kidney Damage ?| ?Without Kidney Damage+ --------+ --------+ +| ?>90 ?| ?Stage one ?| ? Normal ?+ ---+ ---+ -------+| ?60-89 ?| ?Stage two ?| ? Decreased GFR ? + --+ --+ ------+| ?30-59 ?| ?Stage three ?| ? Stage three ? + --+ --+ ------+| ?15-29 ?| ?Stage four ? | ? Stage four ?+ ---+ ---+ -------+| ?<15 (or dialysis) ? ?| ?Stage five ? | ? Stage five ?+ ---+ ---+ -------+ *Each stage assumes the associated GFR level has been in effect for at least three months. ?Stages 1 to 5, with or without kidney disease, indicate chronic kidney disease. Notes: Determination of stages one and two (with eGFR >59mL/min/1.73 m2) requires estimation of kidney damage for at least three months as defined by structural or functional abnormalities of the kidney, manifested by either:Pathological abnormalities or Markers of kidney damage (including abnormalities in the composition of the blood or urine or abnormalities in imaging tests). Lab Interpretation Abnormal (test code = 20090-4) [facility] [id number] 07:00:00 Test Item Value Reference Range Interpretation Comments APPEARANCE (test code = Hazy Clear A 9794100254) COLOR (test code = Yellow Yellow 3621255445) PH (test code = 4.8-8.0 3593358412) SP GRAVITY (test code = 1.003-1.030 5710579423) GLU U QUAL (test code = Normal Normal 5212847895) BLOOD (test code = 3+ Negative A 8295221820) KETONES (test code = Negative Negative 6169380750) PROTEIN (test code = Negative Negative 2887-8) UROBILIN (test code = Normal Normal 1766304161) BILIRUBIN (test code = Negative Negative 4334156649) NITRITE (test code = Negative Negative 7351016759) LEUK YVAN (test code = Negative Negative 2992851898) RBC/HPF (test code = See_Comment H [Autom ated message] 1994453473) The system [employer] generated this result transmitted ref erence range: 0 - 3 HP F. The reference range was not used to int erpret this result as normal/abnormal . WBC/HPF (test code = See_Comment [Autom ated message] 2982892504) The system [employer] generated this result transmitted ref erence range: 0 - 5 HP F. The reference range was not used to int erpret this result as normal/abnormal . BACTERIA (test code = Few Negative A 3088349695) SQ EPITH (test code = HPF 4893396818) Lab Interpretation (test Abnormal code = 62012-3) [facility] WITH [id number] 06:49:00 Test Item Value Reference Range Interpretation Comments WBC (test code = See_Comment L [Automated 6790-2) message] The sy stem which generated this result transmitted reference range : 4.30 - 11.10 10*3/?L. The reference range was not used to interpret this result as normal/abnormal . RBC (test code = See_Comment L [Automated 229-8) message] The sy stem which generated this result transmitted reference range : 3.93 - 5.25 10*6/?L. The reference range was not used to interpret this result as normal/abnormal . HGB (test code = 11.4 g/dL 11.6-15 L 718-7) HCT (test code = 33.8 % 35.7-45.2 L 4544-3) MCV (test code = 89.2 fL 80.6-95.5 787-2) MCH (test code = 30.1 pg 25.9-32.8 785-6) MCHC (test code = 33.7 g/dL 31.6-35.1 786-4) RDW-SD (test code = 41.0 fL 39-49.9 84874-3) RDW-CV (test code = 12.6 % 12-15.5 788-0) PLT (test code = See_Comment L [Automated 777-3) message] The sy stem which generated this result transmitted reference range : 166 - 358 10*3/ ?L. The reference r oliva was not used to interpret this result as normal/abnormal . MPV (test code = 11.9 fL 9.5-12.9 42603-9) NRBC/100 WBC (test See_Comment [Automat ed code = 1999680676) message] The system which generated this result transmitted reference range : 0.0 - 10.0 /100 WBCs. The refer ence range was not u sed to interpret th is result as normal/abnormal . NRBC x10^3 (test code <0.01 See_Comment [Auto mated = 3311702833) message] The s ystem which generated this result transmitted reference range : 10*3/?L. The reference range was not used to interpret this result as normal/abnormal . GRAN MAT (NEUT) % 75.2 % (test code = 770-8) IMM GRAN % (test code 0.20 % = 0326623429) LYMPH % (test code = 13.3 % 736-9) MONO % (test code = 9.1 % 5905-5) EOS % (test code = 2.0 % 713-8) BASO % (test code = 0.2 % 706-2) GRAN MAT x10^3(ANC) 3.04 10*3/uL 1.88-7.09 (test code = 1404533189) IMM GRAN x10^3 (test <0.03 0-0.06 code = 3473221870) LYMPH x10^3 (test code 0.54 10*3/uL 1.32-3.29 L = 731-0) MONO x10^3 (test code 0.37 10*3/uL 0.33-0.92 = 742-7) EOS x10^3 (test code = 0.08 10*3/uL 0.03-0.39 711-2) BASO x10^3 (test code <0.03 0.01-0.07 = 704-7) Lab Interpretation Abnormal (test code = 33642-5) [facility] [id number] 06:45:00 Test Item Value Reference Range Interpretation Comments POCT PREG (test code = 1605) negative On board controls acceptable with positive C Line (test code = 3574) POCT PREG LOT # (test code = 3575) [id number] POCT PREG TEST DATE (test 10-30-2021 code = 3576) Lab Interpretation (test code = Normal 84170-5) [facility] HospitalLav[facility] Whole [id number] 06:35:00 Test Item Value Reference Range Interpretation Comments LACTIC ACID (test code = 1.27 mmol/L 0.5-2.2 [id number]) Lab Interpretation (test code = Normal 52529-7) [facility] HospitalUrinalysis complete W Reflex Culture panel - [id number] 00:00:00 Test Item Value Reference Range Interpretation [...] (test code = 5-10 0-10 epithelial cells) [facility] - Serum or Plasma 2019-12-01 [...] = 1.61 ratio <3.22 risk ratio LDL/HDL) [facility] HospitalCBC W Auto Differential panel - Blood 2019-12-01 [...] code = 156 K/uL 130-400 platelet count) [facility] HospitalComprehensive metabolic 2000 panel - Serum or [id number] 00:00:00 Test Item Value Reference Range Interpretation [...] (test code = ALT) 26 U/L 5-40 [facility] HospitalThyrotropin [Units/volume] in Serum or [id number] 00:00:00 Test Item Value Reference Range Interpretation Comments TSH, third generation (test code 1.810 uIU/mL 0.400-4.100 = TSH, third generation) [facility] HospitalReagin Ab [Presence] in Serum by RPR 2019-12-01 00:00:00 Test Item Value Reference Range Interpretation Comments RPR result (test code = RPR non-reactive non-reactive result) RPR titer (test code = RPR not indic. not indic. titer) [facility] HospitalPT and aPTT panel - Platelet poor plasma by Coagulation [id number] 00:00:00 Test Item Value Reference Range Interpretation Comments prothrombin time (PT) (test code 13.9 seconds 12.5-14.7 = prothrombin time (PT)) INR (test code = INR) 1.0 see below PTT (test code = PTT) 30.1 seconds 25.2-40.0 [facility] HospitalHIV 1+2 Ab [Presence] in Serum or Plasma by [id number] 00:00:00 Test Item Value Reference Range Interpretation Comments HIV 1/2 4TH gen, rflx conf (test non-reactive non-reactive code = HIV 1/2 4TH gen, rflx conf) [facility] HospitalAcute hepatitis 2000 panel - Serum 2019-12-01 00:00:00 [...] (note) (test code = interpretation hepatitis C:) [facility] HospitalChlamydia trachomatis+Neisseria gonorrhoeae DNA [Presence] in Urine by ANSLEY with probe [id number] 00:00:00 Test Item Value Reference Range Interpretation Comments gonorrhea, tma (test code = negative negative gonorrhea, tma) chlamydia, tma (test code = negative negative chlamydia, tma) [facility] HospitalUrinalysis complete W Reflex Culture panel - [id number] 00:00:00 Test Item Value Reference Range Interpretation [...] (test code = 5-10 0-10 epithelial cells) [facility] HospitalLip[facility] panel - Serum or Plasma 2019-12-01 [...] = 1.61 ratio <3.22 risk ratio LDL/HDL) [facility] HospitalCBC W Auto Differential panel - Blood 2019-12-01 [...] code = 156 K/uL 130-400 platelet count) [facility] HospitalComprehensive metabolic 2000 panel - Serum or [id number] 00:00:00 Test Item Value Reference Range Interpretation [...] (test code = ALT) 26 U/L 5-40 [facility] HospitalThyrotropin [Units/volume] in Serum or [id number] 00:00:00 Test Item Value Reference Range Interpretation Comments TSH, third generation (test code 1.810 uIU/mL 0.400-4.100 = TSH, third generation) [facility] HospitalReagin Ab [Presence] in Serum by RPR 2019-12-01 00:00:00 Test Item Value Reference Range Interpretation Comments RPR result (test code = RPR non-reactive non-reactive result) RPR titer (test code = RPR not indic. not indic. titer) [facility] HospitalPT and aPTT panel - Platelet poor plasma by Coagulation [id number] 00:00:00 Test Item Value Reference Range Interpretation Comments prothrombin time (PT) (test code 13.9 seconds 12.5-14.7 = prothrombin time (PT)) INR (test code = INR) 1.0 see below PTT (test code = PTT) 30.1 seconds 25.2-40.0 [facility] HospitalHIV 1+2 Ab [Presence] in Serum or Plasma by [id number] 00:00:00 Test Item Value Reference Range Interpretation Comments HIV 1/2 4TH gen, rflx conf (test non-reactive non-reactive code = HIV 1/2 4TH gen, rflx conf) [facility] HospitalAc[facility] 2000 panel - Serum 2019-12-01 00:00:00 [...] (note) (test code = interpretation hepatitis C:) [facility] HospitalChlamydia trachomatis+Neisseria gonorrhoeae DNA [Presence] in Urine by ANSLEY with probe [id number] 00:00:00 Test Item Value Reference Range Interpretation Comments gonorrhea, tma (test code = negative negative gonorrhea, tma) chlamydia, tma (test code = negative negative chlamydia, tma) [facility] HospitalUrinalysis complete W Reflex Culture panel - [id number] 00:00:00 Test Item Value Reference Range Interpretation [...] (test code = 5-10 0-10 epithelial cells) [facility] HospitalLip[facility] 1996 panel - Serum or Plasma 2019-12-01 [...] = 1.61 ratio <3.22 risk ratio LDL/HDL) [facility] HospitalCBC W Auto Differential panel - Blood 2019-12-01 [...] code = 156 K/uL 130-400 platelet count) [facility] HospitalComprehensive metabolic 2000 panel - Serum or [id number] 00:00:00 Test Item Value Reference Range Interpretation [...] (test code = ALT) 26 U/L 5-40 [facility] HospitalThyrotropin [Units/volume] in Serum or [id number] 00:00:00 Test Item Value Reference Range Interpretation Comments TSH, third generation (test code 1.810 uIU/mL 0.400-4.100 = TSH, third generation) [facility] HospitalReagin Ab [Presence] in Serum by RPR 2019-12-01 00:00:00 Test Item Value Reference Range Interpretation Comments RPR result (test code = RPR non-reactive non-reactive result) RPR titer (test code = RPR not indic. not indic. titer) [facility] HospitalPT and aPTT panel - Platelet poor plasma by Coagulation [id number] 00:00:00 Test Item Value Reference Range Interpretation Comments prothrombin time (PT) (test code 13.9 seconds 12.5-14.7 = prothrombin time (PT)) INR (test code = INR) 1.0 see below PTT (test code = PTT) 30.1 seconds 25.2-40.0 [facility] HospitalHIV 1+2 Ab [Presence] in Serum or Plasma by [id number] 00:00:00 Test Item Value Reference Range Interpretation Comments HIV 1/2 4TH gen, rflx conf (test non-reactive non-reactive code = HIV 1/2 4TH gen, rflx conf) [facility] HospitalAcute hepatitis 2000 panel - Serum 2019-12-01 00:00:00 [...] (note) (test code = interpretation hepatitis C:) [facility] HospitalChlamydia trachomatis+Neisseria gonorrhoeae DNA [Presence] in Urine by ANSLEY with probe [id number] 00:00:00 Test Item Value Reference Range Interpretation Comments gonorrhea, tma (test code = negative negative gonorrhea, tma) chlamydia, tma (test code = negative negative chlamydia, tma) [facility] HospitalUrinalysis complete W Reflex Culture panel - [id number] 00:00:00 Test Item Value Reference Range Interpretation [...] (test code = 5-10 0-10 epithelial cells) [facility] HospitalLip[facility] 1996 panel - Serum or Plasma 2019-12-01 [...] = 1.61 ratio <3.22 risk ratio LDL/HDL) [facility] HospitalCBC W Auto Differential panel - Blood 2019-12-01 [...] code = 156 K/uL 130-400 platelet count) [facility] ProgramComprehensive metabolic 2000 panel - Serum or [id number] 00:00:00 Test Item Value Reference Range Interpretation [...] (test code = ALT) 26 U/L 5-40 [facility] HospitalThyrotropin [Units/volume] in Serum or [id number] 00:00:00 Test Item Value Reference Range Interpretation Comments TSH, third generation (test code 1.810 uIU/mL 0.400-4.100 = TSH, third generation) [facility] HospitalReagin Ab [Presence] in Serum by RPR 2019-12-01 00:00:00 Test Item Value Reference Range Interpretation Comments RPR result (test code = RPR non-reactive non-reactive result) RPR titer (test code = RPR not indic. not indic. titer) [facility] HospitalPT and aPTT panel - Platelet poor plasma by Coagulation [id number] 00:00:00 Test Item Value Reference Range Interpretation Comments prothrombin time (PT) (test code 13.9 seconds 12.5-14.7 = prothrombin time (PT)) INR (test code = INR) 1.0 see below PTT (test code = PTT) 30.1 seconds 25.2-40.0 [facility] HospitalHIV 1+2 Ab [Presence] in Serum or Plasma by [id number] 00:00:00 Test Item Value Reference Range Interpretation Comments HIV 1/2 4TH gen, rflx conf (test non-reactive non-reactive code = HIV 1/2 4TH gen, rflx conf) [facility] HospitalAc[facility] hepatitis 2000 panel - Serum 2019-12-01 00:00:00 [...] (note) (test code = interpretation hepatitis C:) [facility] HospitalChlamydia trachomatis+Neisseria gonorrhoeae DNA [Presence] in Urine by ANSLEY with probe [id number] 00:00:00 Test Item Value Reference Range Interpretation Comments gonorrhea, tma (test code = negative negative gonorrhea, tma) chlamydia, tma (test code = negative negative chlamydia, tma) [facility] HospitalUrinalysis complete W Reflex Culture panel - [id number] 00:00:00 Test Item Value Reference Range Interpretation [...] (test code = 5-10 0-10 epithelial cells) [facility] HospitalLip[facility] 1996 panel - Serum or Plasma 2019-12-01 [...] = 1.61 ratio <3.22 risk ratio LDL/HDL) [facility] HospitalCBC W Auto Differential panel - Blood 2019-12-01 [...] code = 156 K/uL 130-400 platelet count) [facility] HospitalComprehensive metabolic 2000 panel - Serum or [id number] 00:00:00 Test Item Value Reference Range Interpretation [...] (test code = ALT) 26 U/L 5-40 [facility] HospitalThyrotropin [Units/volume] in Serum or [id number] 00:00:00 Test Item Value Reference Range Interpretation Comments TSH, third generation (test code 1.810 uIU/mL 0.400-4.100 = TSH, third generation) [facility] HospitalReagin Ab [Presence] in Serum by RPR 2019-12-01 00:00:00 Test Item Value Reference Range Interpretation Comments RPR result (test code = RPR non-reactive non-reactive result) RPR titer (test code = RPR not indic. not indic. titer) [facility] HospitalPT and aPTT panel - Platelet poor plasma by Coagulation [id number] 00:00:00 Test Item Value Reference Range Interpretation Comments prothrombin time (PT) (test code 13.9 seconds 12.5-14.7 = prothrombin time (PT)) INR (test code = INR) 1.0 see below PTT (test code = PTT) 30.1 seconds 25.2-40.0 [facility] HospitalHIV 1+2 Ab [Presence] in Serum or Plasma by [id number] 00:00:00 Test Item Value Reference Range Interpretation Comments HIV 1/2 4TH gen, rflx conf (test non-reactive non-reactive code = HIV 1/2 4TH gen, rflx conf) [facility] HospitalAcute hepatitis 2000 panel - Serum 2019-12-01 00:00:00 [...] (note) (test code = interpretation hepatitis C:) [facility] HospitalChlamydia trachomatis+Neisseria gonorrhoeae DNA [Presence] in Urine by ANSLEY with probe [id number] 00:00:00 Test Item Value Reference Range Interpretation Comments gonorrhea, tma (test code = negative negative gonorrhea, tma) chlamydia, tma (test code = negative negative chlamydia, tma) [facility] HospitalUrinalysis complete W Reflex Culture panel - [id number] 00:00:00 Test Item Value Reference Range Interpretation [...] tomated message] = urobilinogen) The system w hhgregg generated this result transmitted ref erence range: [...] (test 5-10 0-10 code = epithelial cells) [facility] HospitalLip[facility] 1996 panel - Serum or Plasma 2019-12-01 [...] = 1.61 ratio <3.22 risk ratio LDL/HDL) [facility] HospitalCBC W Auto Differential panel - Blood 2019-12-01 [...] code = 156 K/uL 130-400 platelet count) [facility] HospitalComprehensive metabolic 2000 panel - Serum or [id number] 00:00:00 Test Item Value Reference Range Interpretation [...] [Automated message] (test code = The system whic h bilirubin, total) generated this result transmit denny reference range : <=1.2. The refe rence range was not u sed to interpret th is result as normal/abnormal . alkaline phosphatase 74 U/L 38-117 (test code = alkaline phosphatase) AST (test code = 24 U/L 9-40 AST) ALT (test code = 26 U/L 5-40 ALT) [facility] HospitalThyrotropin [Units/volume] in Serum or [id number] 00:00:00 Test Item Value Reference Range Interpretation Comments TSH, third generation (test code 1.810 uIU/mL 0.400-4.100 = TSH, third generation) [facility] HospitalReagin Ab [Presence] in Serum by RPR 2019-12-01 00:00:00 Test Item Value Reference Range Interpretation Comments RPR result (test code = RPR non-reactive non-reactive result) RPR titer (test code = RPR not indic. not indic. titer) [facility] HospitalPT and aPTT panel - Platelet poor plasma by Coagulation [id number] 00:00:00 Test Item Value Reference Range Interpretation Comments prothrombin time (PT) (test code 13.9 seconds 12.5-14.7 = prothrombin time (PT)) INR (test code = INR) 1.0 see below PTT (test code = PTT) 30.1 seconds 25.2-40.0 [facility]HIV 1+2 Ab [Presence] in Serum or Plasma by [id number] 00:00:00 Test Item Value Reference Range Interpretation Comments HIV 1/2 4TH gen, rflx conf (test non-reactive non-reactive code = HIV 1/2 4TH gen, rflx conf) [facility] HospitalAc[facility] 2000 panel - Serum 2019-12-01 00:00:00 [...] (note) (test code = interpretation hepatitis C:) [facility] HospitalChlamydia trachomatis+Neisseria gonorrhoeae DNA [Presence] in Urine by ANSLEY with probe [id number] 00:00:00 Test Item Value Reference Range Interpretation Comments gonorrhea, tma (test code = negative negative gonorrhea, tma) chlamydia, tma (test code = negative negative chlamydia, tma) [facility] Programpregnancy test, [id number] 11:52:00 Test Item Value Reference Range Interpretation Comments HCG (test code = HCG) negative [facility] Outreach Programpregnancy test, [id number] 11:52:00 Test Item Value Reference Range Interpretation Comments HCG (test code = HCG) negative [facility] Out[facility] Programpregnancy test, [id number] 11:52:00 Test Item Value Reference Range Interpretation Comments HCG (test code = HCG) negative [facility] Out[facility] Programpregnancy test, [id number] 11:52:00 Test Item Value Reference Range Interpretation Comments HCG (test code = HCG) negative [facility] Programpregnancy test, [id number] 11:52:00 Test Item Value Reference Range Interpretation Comments HCG (test code = HCG) negative [facility] Programpregnancy test, [id number] 11:52:00 Test Item Value Reference Range Interpretation Comments HCG (test code = HCG) negative [facility] Out[facility] Programpregnancy test, [id number] 11:52:00 Test Item Value Reference Range Interpretation Comments HCG (test code = HCG) negative [facility]
[2021-02-26] MEDS ORDERED: ASPIRIN 325 MG TAB ONE (00:11)
[2021-02-26 00:37] LABS: Urine Blood Negative (Negative); Urine Glucose Negative (Negative); Urine Protein Negative (Negative)
[2021-02-26 00:49] LABS: SARS-COV-2 RT PCR POSITIVE (NEGATIVE)
[2021-02-26 00:54] LABS: Urine Bacteria >50 /HPF (<20); Urine Mucus HEAVY /HPF (NONE SEEN); Urine RBC NONE SEEN /HPF (NONE SEEN)
--- NOTE | 2021-02-26 01:21 | EDPHYS ---
Physician Documentation [facility] Name: Taniya Hudson Age: 25 yrs Sex: Female : 1995 Arrival Date: 02/25/2021 Time: 21:45 Bed 18 Private MD: ED Physician Sudheer Diaz HPI: 02/25 23:58 This 25 yrs old Female presents to ER via Unassigned with complaints of Ear Pain. cp 23:58 The patient presents with pain, that is acute. cp 23:58 The complaints affect the left ear. cp 23:58 Associated signs and symptoms: Pertinent positives: cough times 1 week, fever, cp Pertinent negatives: sinus trouble, vomiting, diarrhea. 23:58 Severity of symptoms: in the emergency department the symptoms are unchanged despite cp home interventions. 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 - Social history:: Smoking status: Patient denies any tobacco usage or history of. ROS: 02/25 23:59 Constitutional: Positive for body aches, fever, Negative for poor PO intake. cp 23:59 Eyes: Negative for injury, pain, redness, and discharge. cp 23:59 ENT: Positive for ear pain, sore throat, Negative for drainage from ear(s), difficulty swallowing, difficulty handling secretions. 23:59 Cardiovascular: Negative for chest pain. 23:59 Respiratory: Positive for cough, "sounds productive", Negative for shortness of breath, wheezing. 23:59 Abdomen/GI: Negative for abdominal pain, vomiting, diarrhea, constipation. 23:59 Skin: Negative for rash. 23:59 Neuro: Negative for altered mental status, headache, weakness. 23:59 All other systems are negative. Exam: 23:59 Head/Face: Normocephalic, atraumatic. cp 23:59 Constitutional: The patient appears in no acute distress, alert, awake, non-toxic, well developed, well nourished. 23:59 Eyes: Periorbital structures: appear normal, Conjunctiva: normal, no exudate, no injection, Sclera: no appreciated abnormality, Lids and lashes: appear normal, bilaterally. 23:59 ENT: External ear(s): are unremarkable, Ear canal(s): are normal, clear, TM's: bulging, is not appreciated, bilaterally, erythema, that is mild, on the left, Nose: is normal, Mouth: Lips: moist, Oral mucosa: moist, Posterior pharynx: Airway: no evidence of obstruction, patent, Tonsils: no enlargement, no exudate, swelling, is not appreciated, erythema, that is mild, exudate, is not appreciated. 23:59 Neck: ROM/movement: is normal, is supple, without pain, no range of motions limitations, no meningismus, no nuchal rigidity. 23:59 Chest/axilla: Inspection: normal. 23:59 Cardiovascular: Rate: normal, Rhythm: regular. 23:59 Respiratory: the patient does not display signs of respiratory distress, Respirations: normal, no use of accessory muscles, no retractions, labored breathing, is not present, Breath sounds: bronchial sounds, that are mild, are heard diffusely, decreased breath sounds, are not appreciated, stridor, is not appreciated, + upper airway congestion. wheezing: is not appreciated. 23:59 Abdomen/GI: Exam negative for discomfort, distension, guarding, Inspection: abdomen appears normal. 23:59 Skin: no rash present. Vital Signs: 23:44 BP 121 / 69; Pulse 81; Resp 22; Temp 102.7; Pulse Ox 96% ; bb 02/26 02:21 BP 115 / 77; Pulse 80; Resp 16; Temp 100.9; Pulse Ox 96% 0 lpm ; sv1 MDM: 00:00 Differential diagnosis: otitis media, otitis externa, ruptured TM, COVID-19, influenza, cp pneumonia. 00:09 Patient medically screened. cp 01:20 Data reviewed: vital signs, nurses notes, lab test result(s), radiologic studies, plain cp films. 01:20 Test interpretation: by ED physician or midlevel provider: plain radiologic studies. cp Counseling: I had a detailed discussion with the patient and/or guardian regarding: the historical points, exam findings, and any diagnostic results supporting the discharge/admit diagnosis, lab results, radiology results, the need for outpatient follow up, a family practitioner, to return to the emergency department if symptoms worsen or persist or if there are any questions or concerns that arise at home. Response to treatment: the patient's symptoms have mildly improved after treatment, and as a result, I will discharge patient. 02/25 23:58 Order name: COVID-19/FLU A+B/RSV (Document "Date of Onset" if Symptomatic); Complete cp Time: 01:13 02/26 01:13 Interpretation: Abnormal: SARSCOV2 RT PCR POSITIVE. 02/25 23:58 Order name: Urine Microscopic Only; Complete Time: 01:13 02/26 01:14 Interpretation: Reviewed. 02/25 23:58 Order name: Strep cp 02/26 00:36 Order name: Urine Dipstick-Ancillary; Complete Time: 00:49 EDNJ 02/26 00:38 Order name: Urine --Ancillary (enter results); Complete Time: 01:13 mw2 02/26 01:21 Order name: Throat Culture EDNJ 02/25 23:58 Order name: Urine Dipstick-Ancillary (obtain specimen); Complete Time: 00:33 cp 02/25 23:58 Order name: Urine Test (obtain specimen); Complete Time: 00:33 02/25 23:58 Order name: XRAY Chest Pa And Lat (2 Views) cp Administered Medications: 00:11 CANCELLED (Other Intervention Used): Acetaminophen 1000 mg PO once bb 00:12 Drug: Aspirin 650 mg Route: PO; bb 02:02 Drug: Augmentin (Amoxicillin-Clavulanate) 875 mg Route: PO; sv1 02:20 Follow up: Response: No adverse reaction sv1 02:20 Follow up: Response: No adverse reaction sv1 Disposition: 03:04 Co-signature as Attending Physician, Sudheer Diaz MD. pkl Disposition Summary: 02/26/21 01:20 Discharge Ordered Location: Home cp Problem: new cp Symptoms: have improved cp Condition: Stable cp Diagnosis - Otitis media, unspecified, left ear cp - SARS-associated coronavirus as the cause of diseases classified elsewhere cp Followup: cp - With: Private Physician - When: 2 - 3 days - Reason: Worsening of condition Discharge Instructions: - Discharge Summary Sheet cp - Aspirin and Your Heart cp - COVID-19 cp - Things to Know about the COVID-19 Pandemic - [facility] [place] cp - 10 Things You Can Do to Manage Your COVID-19 Symptoms at Home - [facility] [place] cp - COVID-19: Quarantine vs. Isolation - [facility] [place] cp - Prevent the Spread of COVID-19 if You Are Sick - [facility] [place] cp Forms: - Medication Reconciliation Form cp - Thank You Letter cp - Antibiotic Education cp - Prescription Opioid Use cp Prescriptions: - Augmentin 875-125 mg Oral Tablet - take 1 tablet by ORAL route every 12 hours for 10 days; 20 tablet; Refills: 0, cp Product Selection Permitted - Tessalon Perles 100 mg Oral Capsule - take 1 capsule by ORAL route every 8 hours As needed; 15 capsule; Refills: 0, cp Product Selection Permitted Signatures: Dispatcher [employer] EDSudheer Heaton MD MD pkl Ballard, Brenda, RN RN bb Rios Sands PA PA cp Jackson Jerez RN RN sv1 Corrections: (The following items were deleted from the chart) 00:11 02/25 23:58 Acetaminophen 1000 mg PO once ordered. cp bb
--- NOTE | 2021-02-26 01:21 | ER ---
Nurse's Notes [facility] Name: Taniya Hudson Age: 25 yrs Sex: Female : 1995 Arrival Date: 02/25/2021 Time: 21:45 Bed 18 Private MD: Diagnosis: Otitis media, unspecified, left ear;SARS-associated coronavirus as the cause of diseases classified elsewhere Presentation: 02/26 00:14 Chief complaint: Patient states: she is having ear pain, cough, fever for several days. bb Coronavirus screen: cough unrelated to allergies, fever, Client presents with at least one sign or symptom that may indicate coronavirus-19. Standard/surgical mask placed on the client. Ebola Screen: No symptoms or risks identified at this time. Initial Sepsis Screen: Does the patient meet any 2 criteria? RR > 20 per min. Temp <36.0*C (96.8*F)) or > 38.3*C (100.9*F). Does the patient have a suspected source of infection? Yes: Productive cough/pneumonia. Risk Assessment: Do you want to hurt yourself or someone else? Patient reports no desire to harm self or others. Onset of symptoms was January 2021. 00:14 Method Of Arrival: Ambulatory bb 00:14 Acuity: CHUCKIE 3 bb Triage Assessment: 00:17 General: Appears in no apparent distress. Behavior is calm, cooperative. Pain: bb Complains of pain in ears Pain currently is 8 out of 10 on a pain scale. EENT: Reports pain in right ear and left ear. Neuro: Level of Consciousness is awake, alert, obeys commands, Oriented to person, place, time, situation. Cardiovascular: Capillary refill < 3 seconds Patient's skin is warm and dry. Respiratory: Respiratory effort is even, unlabored. GI: No signs and/or symptoms were reported involving the gastrointestinal system. Derm: Skin is dry, Skin is pale, Skin temperature is warm. Musculoskeletal: Circulation, motion, and sensation intact. 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 - Social history:: Smoking status: Patient denies any tobacco usage or history of. Screenin:18 Abuse screen: none. Nutritional screening: No deficits noted. Tuberculosis screening: sv1 No symptoms or risk factors identified. Fall Risk None identified. Vital Signs: 02/25 23:44 BP 121 / 69; Pulse 81; Resp 22; Temp 102.7; Pulse Ox 96% ; bb 02/26 02:21 BP 115 / 77; Pulse 80; Resp 16; Temp 100.9; Pulse Ox 96% 0 lpm ; sv1 ED Course: 02/25 21:45 Patient arrived in ED. wm 23:57 Rios Sands PA is PHCP. cp 23:57 Sudheer Diaz MD is Attending Physician. cp 02/26 00:17 Triage completed. bb 00:17 Arm band placed on Patient placed in an exam room, on a stretcher, on pulse oximetry. bb 00:30 Strep swab sent to lab. lt3 00:30 Strep Sent. lt3 00:52 XRAY Chest Pa And Lat (2 Views) In Process Unspecified. EDMS 01:58 Jackson Jerez, ANA is Primary Nurse. sv1 02:18 Patient has correct armband on for positive identification. Bed in low position. Call sv1 light in reach. Side rails up X 1. 02:19 No provider procedures requiring assistance completed. Patient did not have IV access sv1 during this emergency room visit. Administered Medications: 00:11 CANCELLED (Other Intervention Used): Acetaminophen 1000 mg PO once bb 00:12 Drug: Aspirin 650 mg Route: PO; bb 02:02 Drug: Augmentin (Amoxicillin-Clavulanate) 875 mg Route: PO; sv1 02:20 Follow up: Response: No adverse reaction sv1 02:20 Follow up: Response: No adverse reaction sv1 Outcome: 01:20 Discharge ordered by . cp 02:19 Discharged to home ambulatory. sv1 02:19 Condition: good 02:19 Discharge instructions given to patient. 02:23 Patient left the ED. sv1 Signatures: Dispatcher [facility] EDMS Viviana Gray RN RN bb Rios Sands PA PA cp Marsh, Wendy wm Tran, Leah lt3 Jackson Jerez, RN RN sv1
[2021-02-26] MEDS ORDERED: AMOX/K CLAV 875 MG TAB ONE (02:02)
[2021-02-26 02:29] VITALS: O2SAT 96
[2021-02-26 02:31] VITALS: BP 115/77; TEMP 100.9
--- NOTE | 2021-02-26 08:29 | RAD REPORT ---
EXAM DESCRIPTION: RAD - Chest Pa And Lat (2 Views) - 02/26/2021 12:52 am CLINICAL HISTORY: Cough;Fever Chest pain. COMPARISON: Chest Single View dated 09/26/2020 FINDINGS: The lungs are clear. The heart is normal in size. No displaced fractures. Sternotomy is no denny with stent present in the mediastinum.
== END 2021-02-26 02:23 | disposition home or self-care (01) ==
LOC: ER 21:42
DX: H66.92 Otitis media, unspecified, left ear (principal); U07.1 COVID-19; Z95.818 Presence of other cardiac implants and grafts
CPT/HCPCS: 0241U; 71046; 81003; 81015; 81025; 87070; 87081; 99284

== ENCOUNTER 2021-03-04 18:09 | Emergency (ER) | payer OTHER, SELFPAY ==
--- OUTSIDE RECORDS SUMMARY | 2021-03-04 18:19 | XMS REPORT | Continuity of Care Document ---
:1995 Author Organization [facility] t Address [address] [place] [address] Care Team Providers Name Role Phone ANGELO Primary Care Physician Unavailable LEODAN Attending Clinician Unavailable Thomas Tubbs Attending Clinician Darcie PEREZ, T Attending Clinician Unavailable [place] López Attending Clinician Victoria RIVAS, Dada Attending Clinician Margarito ACOSTA M Attending Clinician Unavailable Philip RIVAS Attending Clinician PHILIP Attending Clinician Unavailable Doctor Unassigned, Name Attending Clinician Unavailable LEODAN Admitting Clinician Unavailable PHILIP Admitting Clinician Unavailable Payers Payer Name Policy Type Policy Number Effective Date Expiration Date S oniel MEDICAID PENDING PENDING 2020 00:00:00 [place] [id number] WOMEN'S HEALTH PROGRAM (MEDICAID) Problems Condition Condition [...] ICD10 ity of 00:00: 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 Cyanosis Cyanosis Disease Active Unive rs 9 ity of 00:00: Medical Branch S/P Fontan S/P Fontan Disease Active U nivers procedure procedure 11-18 ity of 00:00: [place] [facility] AI (aortic AI (aortic Disease Active U nivers incompeten incompeten 11-18 it y of ce) ce) 00:00: Medical Branch 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 00:00: Medical Branch 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 09-24 ity of 00:00: Medical Branch Allergies, Adverse [...] Quantity Comments Source Exposure to Not sure [facility] SARS-CoV-2 [place] Medical (event) Branch Sex Assigned At Universit y of [facility] Tobacco use and 2020-04-04 2020-04-04 Never used Universit y of exposure 00:00:00 00:00:00 [facility] Branch Alcohol intake 2020-04-04 2020-04-04 Current University of 00:00:00 00:00:00 non-drinker of [facility] alcohol Branch (finding) Smoking Status Start Date Stop Date Source Never smoker [facility] Medical Branch Medications Ordered Filled Start Stop Current Ordering Indication Dosage Frequency Signature Comments Components Source Medication Medication Date Date Medication? Clinician (SIG) Name Name levoFLOXaci No 500mg 500 mg, U al n 04-01 Oral, ity of (LEVAQUIN) 12:30: 11:22 ONCE, 1 [place] as tablet 500 00 :00 dose, [facility] sukhwinder mg 04/01/20 at Branch 0630, ESTELLE
Re ason for Anti-Infec tive: Documented Infection< br>Documen denny Infection Site: Skin / Soft Tissue
Duration of Therapy: Other (see Comments) iohexol No 100mL 100 mL, Unive rs (OMNIPAQUE [...] approving Restricted medication : Rodrigo BREWSTER acetaminoph No 1000mg 1,000 mg, Univers en 04-01 Oral, ity of (TYLENOL) 06:22: 06:27 ONCE, [place] tablet [place] :00 dose, [facility] 1,000 mg 04/01/20 at [facility] h 0030, ESTELLE levoFLOXaci Yes [id number] 500mg Take 1 Univers n 04-01 tablet by ity of (LEVAQUIN) 00:00: mouth [place] 500 mg 00 every 24 Medical tablet (twenty-fo Branch ur) hours. levoFLOXaci Yes [id number] 500mg Take 1 Univers n 04-01 tablet by ity of (LEVAQUIN) 00:00: mouth [place] 500 mg 00 every 24 Medical tablet (twenty-fo Branch ur) hours. levoFLOXaci Yes [id number] 500mg Take 1 Univers n 1-31 tablet by ity of (LEVAQUIN) 00:00: mouth [place] 500 mg 00 every 24 Medical tablet (twenty-fo [place] ur) hours. enalapril 2020- Yes TAKE 1 Univer s 2.5 mg 1-02 TABLET BY ity of tablet 00:00: MOUTH ONCE [place] 00 DAILY IN [facility] MORNING AND 2 TABLETS IN THE EVENING enalapril 2020- Yes TAKE 1 Univer s 2.5 mg 1-02 TABLET BY ity of tablet 00:00: MOUTH ONCE [place] 00 DAILY IN [facility] THE [place] MORNING AND 2 TABLETS IN THE EVENING enalapril 2019- Yes TAKE 1 Univer s 2.5 mg 1-02 TABLET BY ity of tablet 00:00: MOUTH ONCE [place] 00 DAILY IN [facility] MORNING AND 2 TABLETS IN THE EVENING enalapril 2019- Yes TAKE 1 Univer s 2.5 mg 1-02 TABLET BY ity of tablet 00:00: MOUTH ONCE [place] 00 DAILY IN [facility] MORNING AND 2 TABLETS IN THE EVENING enalapril 2019- Yes TAKE 1 Univer s 2.5 mg 1-02 TABLET BY ity of tablet 00:00: MOUTH ONCE [place] 00 DAILY IN [facility] MORNING AND 2 TABLETS IN THE EVENING enalapril 2019- Yes TAKE 1 Univer s 2.5 mg 1-02 TABLET BY ity of tablet 00:00: MOUTH ONCE [place] 00 DAILY IN [facility] MORNING AND 2 TABLETS IN THE EVENING enalapril 2019- Yes TAKE 1 Univer s 2.5 mg 1-02 TABLET BY ity of tablet 00:00: MOUTH ONCE [place] 00 DAILY IN [facility] MORNING AND 2 TABLETS IN THE EVENING enalapril 2019- Yes TAKE 1 Univer s 2.5 mg 1-02 TABLET BY ity of tablet 00:00: MOUTH ONCE [place] 00 DAILY IN [facility] MORNING AND 2 TABLETS IN THE EVENING enalapril 2019- Yes TAKE 1 Univer s 2.5 mg 1-02 TABLET BY ity of tablet 00:00: MOUTH ONCE [place] 00 DAILY IN [facility] MORNING AND 2 TABLETS IN THE EVENING enalapril 2019- Yes TAKE 1 Univer s 2.5 mg 1-02 TABLET BY ity of tablet 00:00: MOUTH ONCE [place] 00 DAILY IN [facility] MORNING AND 2 TABLETS IN THE EVENING enalapril 2019-1 Yes TAKE 1 Univer s 2.5 mg 1-02 TABLET BY ity of tablet 00:00: MOUTH ONCE [place] 00 DAILY IN [facility] THE Branch MORNING AND 2 TABLETS IN THE EVENING ENALAPRIL 2020-0 Yes TAKE 1 Univer s 2.5 mg 7-24 TABLET BY ity of tablet 00:00: MOUTH ONCE [place] 00 DAILY IN Medical THE Branch MORNING AND 2 TABLETS IN THE EVENING ENALAPRIL 2020-0 Yes TAKE 1 Univer s 2.5 mg 7-24 TABLET BY ity of tablet 00:00: MOUTH ONCE [place] 00 DAILY IN [facility] THE Branch MORNING AND 2 TABLETS IN THE EVENING ENALAPRIL 2020-0 2020- No TAKE 1 Unive rs 2.5 mg 7-24 11-02 TABLET BY ity of tablet 00:00: 00:00 M[place]TH [place]CE [place] :[place] DA[place] [facility] THE Branch MORNING AND 2 TABLETS IN THE EVENING aspirin 2020-0 Yes 81mg Take 81 mg Univ ers (BABY 6-18 by mouth ity of ASPIRIN) 81 08:22: [place]. [place] mg chewable 29 Medical tablet Branch ACETAMINOPH 2020-0 Yes Take by Un ibrahima EN (TYLENOL 6-18 mouth. ity of ORAL) 08:22: [place] [address] Medical Branch DM/PSEUDOEP 2020-0 Yes Take by Un ibrahima HED/ACETAMI 6-18 mouth. ity of NOPHEN 08:22: [place] ([place] [address] Medical DAYQUIL Branch ORAL) IBUPROFEN 2020-0 Yes Take by Univ ers ORAL 6-18 mouth. ity of 08:22: [place] [address] Medical Branch aspirin 2020-0 Yes 81mg Take 81 mg Univ ers (BABY 6-18 by mouth ity of ASPIRIN) 81 08:22: [place]. [place] che[place] 29 Medical tablet Branch ACETAMINOPH 2020-0 Yes Take by Un ibrahima EN (TYLENOL 6-18 mouth. ity of ORAL) 08:22: [place] [address] Medical Branch DM/PSEUDOEP 2020-0 Yes Take by Un ibrahima HED/ACETAMI 6-18 mouth. ity of NOPHEN 08:22: [place] ([place] [address] Medical DAYQUIL Branch ORAL) IBUPROFEN 2020-0 Yes Take by Univ ers ORAL 6-18 mouth. ity of 08:22: [place] [address] Medical Branch aspirin 2020-0 Yes 81mg Take 81 mg Univ ers (BABY 6-18 by mouth ity of ASPIRIN) 81 08:22: [place]. [place] che[place] 29 Medical tablet Branch ACETAMINOPH 2020-0 Yes Take by Un ibrahima EN (TYLENOL 6-18 mouth. ity of ORAL) 08:22: [place] [address] Medical Branch DM/PSEUDOEP 2020-0 Yes Take by Un ibrahima HED/ACETAMI 6-18 mouth. ity of NOPHEN 08:22: [place] ([place] [address] Medical DAYQUIL Branch ORAL) IBUPROFEN 2020-0 Yes Take by Univ ers ORAL 6-18 mouth. ity of 08:22: [place] [address] Medical Branch aspirin 2020-0 Yes 81mg Take 81 mg Univ ers (BABY 6-18 by mouth ity of ASPIRIN) 81 08:22: daily. [place] mg che[place] 29 Medical tablet Branch ACETAMINOPH 2020-0 Yes Take by Un ibrahima EN (TYLENOL 6-18 mouth. ity of ORAL) 08:22: [place] [address] Medical Branch DM/PSEUDOEP 2020-0 Yes Take by Un ibrahima HED/ACETAMI 6-18 mouth. ity of NOPHEN 08:22: [place] ([place] [address] Medical DAYQUIL Branch ORAL) IBUPROFEN 2020-0 Yes Take by Univ ers ORAL 6-18 mouth. ity of 08:22: [place] [address] Medical Branch aspirin 2020-0 Yes 81mg Take 81 mg Univ ers (BABY 6-18 by mouth ity of ASPIRIN) 81 08:22: daily. [place] mg chewable 29 Medical tablet Branch ACETAMINOPH 2020-0 Yes Take by Un ibrahima EN (TYLENOL 6-18 mouth. ity of ORAL) 08:22: [place] [address] Medical Branch DM/PSEUDOEP 2020-0 Yes Take by Un ibrahima HED/ACETAMI 6-18 mouth. ity of NOPHEN 08:22: [place] ([place] [address] Medical DAYQUIL Branch ORAL) IBUPROFEN 2020-0 Yes Take by Univ ers ORAL 6-18 mouth. ity of 08:22: [place] [address] Medical Branch aspirin 2020-0 Yes 81mg Take 81 mg Univ ers (BABY 6-18 by mouth ity of ASPIRIN) 81 08:22: daily. [place] mg chewable 29 Medical tablet Branch ACETAMINOPH 2020-0 Yes Take by Un ibrahima EN (TYLENOL 6-18 mouth. ity of ORAL) 08:22: [place] [address] Medical Branch DM/PSEUDOEP 2020-0 Yes Take by Un ibrahima HED/ACETAMI 6-18 mouth. ity of NOPHEN 08:22: [place] ([place] [address] Medical DAYQUIL Branch ORAL) IBUPROFEN 2020-0 Yes Take by Univ ers ORAL 6-18 mouth. ity of 08:22: [place] [address] Medical Branch aspirin 2020-0 Yes 81mg Take 81 mg Univ ers (BABY 6-18 by mouth ity of ASPIRIN) 81 08:22: daily. [place] mg che[place]able 29 Medical tablet Branch ACETAMINOPH 2020-0 Yes Take by Un ibrahima EN (TYLENOL 6-18 mouth. ity of ORAL) 08:22: [place] [address] Medical Branch DM/PSEUDOEP 2020-0 Yes Take by Un ibrahima HED/ACETAMI 6-18 mouth. ity of NOPHEN 08:22: [place] ([place] [address] Medical DAYQUIL Branch ORAL) IBUPROFEN 2020-0 Yes Take by Univ ers ORAL 6-18 mouth. ity of 08:22: [place] [address] Medical Branch aspirin 2020-0 Yes 81mg Take 81 mg Univ ers (BABY 6-18 by mouth ity of ASPIRIN) 81 08:22: daily. [place] mg che[place]able 29 Medical tablet Branch ACETAMINOPH 2020-0 Yes Take by Un ibrahima EN (TYLENOL 6-18 mouth. ity of ORAL) 08:22: [place] [address] Medical Branch DM/PSEUDOEP 2020-0 Yes Take by Un ibrahima HED/ACETAMI 6-18 mouth. ity of NOPHEN 08:22: [place] ([place] [address] Medical DAYQUIL Branch ORAL) IBUPROFEN 2020-0 Yes Take by Univ ers ORAL 6-18 mouth. ity of 08:22: [place] [address] Medical Branch aspirin 2020-0 Yes 81mg Take 81 mg Univ ers (BABY 6-18 by mouth ity of ASPIRIN) 81 08:22: daily. [place] mg chewable 29 Medical tablet Branch ACETAMINOPH 2020-0 Yes Take by Un ibrahima EN (TYLENOL 6-18 mouth. ity of ORAL) 08:22: [place] [address] Medical Branch DM/PSEUDOEP 2020-0 Yes Take by Un ibrahima HED/ACETAMI 6-18 mouth. ity of NOPHEN 08:22: [place] ([place] [address] Medical DAYQUIL Branch ORAL) IBUPROFEN 2020-0 Yes Take by Univ ers ORAL 6-18 mouth. ity of 08:22: [place] [address] Medical Branch aspirin 2020-0 Yes 81mg Take 81 mg Univ ers (BABY 6-18 by mouth ity of ASPIRIN) 81 08:22: daily. [place] mg chewable 29 Medical tablet Branch ACETAMINOPH 2020-0 Yes Take by Un ibrahima EN (TYLENOL 6-18 mouth. ity of ORAL) 08:22: [place] [address] Medical Branch DM/PSEUDOEP 2020-0 Yes Take by Un ibrahima HED/ACETAMI 6-18 mouth. ity of NOPHEN 08:22: [place] ([place] [address] Medical DAYQUIL Branch ORAL) IBUPROFEN 2020-0 Yes Take by Univ ers ORAL 6-18 mouth. ity of 08:22: [place] [address] Medical Branch aspirin 2020-0 Yes 81mg Take 81 mg Univ ers (BABY 6-18 by mouth ity of ASPIRIN) 81 08:22: daily. [place] mg che[place]able 29 Medical tablet Branch ACETAMINOPH 2020-0 Yes Take by Un ibrahima EN (TYLENOL 6-18 mouth. ity of ORAL) 08:22: [place] [address] Medical Branch DM/PSEUDOEP 2020-0 Yes Take by Un ibrahima HED/ACETAMI 6-18 mouth. ity of NOPHEN 08:22: [place] ([place] [address] Medical DAYQUIL Branch ORAL) IBUPROFEN 2020-0 Yes Take by Univ ers ORAL 6-18 mouth. ity of 08:22: [place] [address] Medical Branch aspirin 2020-0 Yes 81mg Take 81 mg Univ ers (BABY 6-18 by mouth ity of ASPIRIN) 81 08:22: daily. [place] mg chewable 29 Medical tablet Branch ACETAMINOPH 2020-0 Yes Take by Un ibrahima EN (TYLENOL 6-18 mouth. ity of ORAL) 08:22: [place] [address] Medical Branch DM/PSEUDOEP 2020-0 Yes Take by Un ibrahima HED/ACETAMI 6-18 mouth. ity of NOPHEN 08:22: [place] ([place] [address] Medical DAYQUIL Branch ORAL) IBUPROFEN 2020-0 Yes Take by Univ ers ORAL 6-18 mouth. ity of 08:22: [place] [address] Medical Branch aspirin 2020-0 Yes 81mg Take 81 mg Univ ers (BABY 6-18 by mouth ity of ASPIRIN) 81 08:22: daily. [place] mg chewable 29 Medical tablet Branch ACETAMINOPH 2020-0 Yes Take by Un ibrahima EN (TYLENOL 6-18 mouth. ity of ORAL) 08:22: [place] [address] Medical Branch DM/PSEUDOEP 2020-0 Yes Take by Un ibrahima HED/ACETAMI 6-18 mouth. ity of NOPHEN 08:22: [place] ([place] [address] Medical DAYQUIL Branch ORAL) IBUPROFEN 2020-0 Yes Take by Univ ers ORAL 6-18 mouth. ity of 08:22: [place] [address] Medical Branch aspirin 2020-0 Yes 81mg Take 81 mg Univ ers (BABY 6-18 by mouth ity of ASPIRIN) 81 08:22: daily. [place] mg chewable Medical tablet Branch ACETAMINOPH 2020-0 Yes Take by Un ibrahima EN (TYLENOL 6-18 mouth. ity of ORAL) 08:22: [place] [address] Medical Branch DM/PSEUDOEP 2020-0 Yes Take by Un ibrahima HED/ACETAMI 6-18 mouth. ity of NOPHEN 08:22: [place] ([place] [address] Medical DAYQUIL Branch ORAL) IBUPROFEN 2020-0 Yes Take by Univ ers ORAL 6-18 mouth. ity of 08:22: [place] [address] Medical Branch ibuprofen 2020-0 Yes [id number] 600mg Take 1 Univers 600 mg 6-18 [id number] tablet by ity of tablet 00:00: mouth [address] [place] [address] ([facility]) Medical times Branch daily with meals. ibuprofen 2020-0 Yes [id number] 600mg Take 1 Univers 600 mg 6-18 [id number] tablet by ity of tablet 00:00: mouth [address] [place] [address] ([facility]) Medical times Branch daily with meals. ibuprofen 2020-0 Yes [id number] 600mg Take 1 Univers 600 mg 6-18 [id number] tablet by ity of tablet 00:00: [place] [address] ([facility]) Medical times Branch daily with meals. ibuprofen 2020-0 Yes [id number] 600mg Take 1 Univers 600 mg 6-18 [id number] tablet by ity of tablet 00:00: mouth [address] [place] [address] ([facility]) Medical times Branch daily with meals. ibuprofen 2020-0 Yes [id number] 600mg Take 1 Univers 600 mg 6-18 [id number] tablet by ity of tablet 00:00: mouth [address] [place] [address] ([facility]) Medical times Branch daily with meals. ibuprofen 2020-0 Yes [id number] 600mg Take 1 Univers 600 mg 6-18 [id number] tablet by ity of tablet 00:00: mouth [address] [place] [address] ([facility]) Medical times Branch daily with meals. ibuprofen 2020-0 Yes [id number] 600mg Take 1 Univers 600 mg 6-18 [id number] tablet by ity of tablet 00:00: mouth 3 [place] 00 (three) Medical times Branch daily with meals. ibuprofen 2020-0 Yes [id number] 600mg Take 1 Univers 600 mg 6-18 [id number] tablet by ity of tablet 00:00: mouth (three) Medical times Branch daily with meals. ibuprofen 2020-0 Yes [id number] 600mg Take 1 Univers 600 mg 6-18 [id number] tablet by ity of tablet 00:00: mouth (three) Medical times Branch daily with meals. ibuprofen 2020-0 Yes [id number] 600mg Take 1 Univers 600 mg 6-18 [id number] tablet by ity of tablet 00:00: mouth (three) Medical times Branch daily with meals. ibuprofen 2020-0 Yes [id number] 600mg Take 1 Univers 600 mg 6-18 [id number] tablet by ity of tablet 00:00: mouth (three) Medical times Branch daily with meals. ibuprofen 2020-0 Yes [id number] 600mg Take 1 Univers 600 mg 6-18 [id number] tablet by ity of tablet 00:00: mouth (three) Medical times Branch daily with meals. ibuprofen 2020-0 Yes [id number] 600mg Take 1 Univers 600 mg 6-18 [id number] tablet by ity of tablet 00:00: mouth (three) Medical times Branch daily with meals. ibuprofen 2020-0 Yes [id number] 600mg Take 1 Univers 600 mg 6-18 [id number] tablet by ity of tablet 00:00: mouth [...] 00:00: MOUTH ONCE [place] 00 DAILY IN [facility] THE Branch MORNING AND 2 TABLETS IN THE EVENING ENALAPRIL 2020-0 2020- No TAKE 1 Unive rs 2.5 mg 6-15 07-24 TABLET BY ity of tablet 00:00: 00:00 M[place]TH [place]CE [place] 00 :[place] DAILY [place] [facility] MORNING AND 2 TABLETS IN THE EVENING ENALAPRIL Yes TAKE 1 Univer s 2.5 mg 5-26 TABLET BY ity of tablet 00:00: MOUTH ONCE [place] 00 DAILY IN [facility] THE [place] MORNING AND 2 IN THE EVENING ENALAPRIL 2020- No TAKE 1 Unive rs 2.5 mg 5-26 06-15 TABLET BY ity of tablet 00:00: 00:00 M[place]TH [place]CE [place] 00 [place] [facility] THE [place] MORNING AND 2 IN THE EVENING ENALAPRIL Yes TAKE 1 Univer s 2.5 mg 4-29 TABLET BY ity of tablet 00:00: MOUTH ONCE [place] 00 DAILY IN [facility] THE [place] MORNING AND 2 IN THE EVENING ENALAPRIL 2020- No TAKE 1 Unive rs 2.5 mg 4-29 05-26 TABLET BY ity of tablet 00:00: 00:00 M[place]TH [place]CE [place] 00 :[place] DAILY IN [facility] MORNING AND 2 IN THE EVENING ENALAPRIL Yes TAKE 1 Univer s 2.5 mg 3-30 TABLET BY ity of tablet 00:00: MOUTH ONCE [place] 00 DAILY IN [facility] THE [place] MORNING AND 2 IN THE EVENING ENALAPRIL 2020- No TAKE 1 Unive rs 2.5 mg 3-30 04-29 TABLET BY ity of tablet 00:00: 00:00 MOUTH ONCE [place] 00 :[place] DAILY IN [facility] MORNING AND 2 IN THE EVENING ENALAPRIL Yes TAKE 1 Univer s 2.5 mg 8-28 TABLET BY ity of tablet 00:00: MOUTH ONCE [place] 00 DAILY IN [facility] THE [place] MORNING AND 2 IN THE EVENING ENALAPRIL 2020- No TAKE 1 Unive rs 2.5 mg 8-28 03-30 TABLET BY ity of tablet 00:00: 00:00 [place]CE [place] [facility] THE [place] MORNING AND 2 IN THE EVENING phenazopyri 2018- Yes [id number] 200mg Take 1 Univers dine 200 mg 3-23 tablet by ity of tablet 00:00: mouth 3 [place] 00 (three) [facility] daily. phenazopyri 2019- Yes [id number] 200mg Take 1 Univers dine 200 mg 3-23 tablet by ity of tablet 00:00: mouth 3 (three) Medical times Branch daily. phenazopyri 2018- Yes [id number] 200mg Take 1 Univers dine 200 mg 3-23 tablet by ity of tablet 00:00: mouth 3 (three) Medical times Branch daily. phenazopyri Yes [id number] 200mg Take 1 Univers dine 200 mg 3-23 tablet by ity of tablet 00:00: mouth (three) Medical times Branch daily. phenazopyri Yes [id number] 200mg Take 1 Univers dine 200 mg 3-23 tablet by ity of tablet 00:00: mouth (three) Medical times Branch daily. phenazopyri Yes [id number] 200mg Take 1 Univers dine 200 mg 3-23 tablet by ity of tablet 00:00: mouth ([facility]) Medical times Branch daily. phenazopyri Yes [id number] 200mg Take 1 Univers dine 200 mg 3-23 tablet by ity of tablet 00:00: mouth ([facility]) Medical times Branch daily. phenazopyri Yes [id number] 200mg Take 1 Univers dine 200 mg 3-23 tablet by ity of tablet 00:00: mouth ([facility]) Medical times Branch daily. phenazopyri Yes [id number] 200mg Take 1 Univers dine 200 mg 3-23 tablet by ity of tablet 00:00: mouth ([facility]) Medical times Branch daily. phenazopyri Yes [id number] 200mg Take 1 Univers dine 200 mg 3-23 tablet by ity of tablet 00:00: mouth (three) Medical times Branch daily. phenazopyri Yes [id number] 200mg Take 1 Univers dine 200 mg 3-23 tablet by ity of tablet 00:00: mouth 3 (three) Medical times Branch daily. phenazopyri 2018- Yes [id number] 200mg Take 1 Univers dine 200 mg 3-23 tablet by ity of tablet 00:00: mouth 3 (three) Medical times Branch daily. phenazopyri 2018- Yes [id number] 200mg Take 1 Univers dine 200 mg 3-23 tablet by ity of tablet 00:00: mouth 3 (three) Medical times Branch daily. phenazopyri 2018- Yes [id number] 200mg Take 1 Univers dine 200 mg 3-23 tablet by ity of tablet 00:00: mouth 3 (three) Medical times Branch daily. phenazopyri 2018- Yes [id number] 200mg Take 1 Univers dine 200 mg 3-23 tablet by ity of tablet 00:00: mouth (three) Medical times Branch daily. phenazopyri Yes [id number] 200mg Take 1 Univers dine 200 mg 3-23 tablet by ity of tablet 00:00: mouth (three) Medical times Branch daily. phenazopyri Yes [id number] 200mg Take 1 Univers dine 200 mg 3-23 tablet by ity of tablet 00:00: mouth (three) Medical times Branch daily. phenazopyri Yes [id number] 200mg Take 1 Univers dine 200 mg 3-23 tablet by ity of tablet 00:00: mouth (three) Medical times Branch daily. phenazopyri Yes [id number] 200mg Take 1 Univers dine 200 mg 3-23 tablet by ity of tablet 00:00: mouth (three) Medical times Branch daily. phenazopyri Yes [id number] 200mg Take 1 Univers dine 200 mg 3-23 tablet by ity of tablet 00:00: mouth 3 (three) Medical times Branch daily. ENALAPRIL 2019- No TAKE 1 Unive rs 2.5 mg 04-01-27 TABLET BY ity of tablet 00:00: 00:00 [...] of ORAL) 21:21: [place] 23 Medical Branch DM/PSEUDOEP Yes Take by Un ibrahima HED/ACETAMI 3-08 mouth. ity of NOPHEN 21:21: [place] ([place] 23 Medical DAYQUIL Branch ORAL) IBUPROFEN Yes Take by Univ ers ORAL 3-08 mouth. ity of 21:21: [place] 23 Medical Branch aspirin Yes 81mg Take 81 mg Univ ers (BABY 3-08 by mouth ity of ASPIRIN) 81 21:21: daily. [place] mg chewable 23 Medical tablet Branch ACETAMINOPH Yes Take by Un ibrahima EN (TYLENOL 3-08 mouth. ity of ORAL) 21:21: [place] [address] Medical Branch aspirin 2017-0 Yes 81mg Take 81 mg Univ ers (BABY 3-08 by mouth ity of ASPIRIN) 81 21:21: daily. [place] mg chewable 23 Medical tablet Branch ACETAMINOPH 2016-0 Yes Take by Un ibrahima EN (TYLENOL 3-08 mouth. ity of ORAL) 21:21: [address] Branch DM/PSEUDOEP 2017- Yes Take by Un ibrahima HED/ACETAMI 3-08 mouth. ity of NOPHEN 21:21: [place] ([place] [address] Medical DAYQUIL Branch ORAL) IBUPROFEN 2016-0 Yes Take by Univ ers ORAL 3-08 mouth. ity of 21:21: [place] [address] Medical Branch DM/PSEUDOEP 2017- Yes Take by Un ibrahima HED/ACETAMI 3-08 mouth. ity of NOPHEN 21:21: [place] ([place] [address] Medical DAYQUIL Branch ORAL) IBUPROFEN Yes Take by Univ ers ORAL 3-08 mouth. ity of 21:21: [address] Branch aspirin 2016- Yes 81mg Take 81 mg Univ ers (BABY 3-08 by mouth ity of ASPIRIN) 81 21:21: daily. [place] mg chewable 23 Medical tablet Branch ACETAMINOPH Yes Take by Un ibrahima EN (TYLENOL 3-08 mouth. ity of ORAL) 21:21: [place] [address] Medical Branch DM/PSEUDOEP 2016- Yes Take by Un ibrahima HED/ACETAMI 3-08 mouth. ity of NOPHEN 21:21: [place] ([place] [address] Medical DAYQUIL Branch ORAL) IBUPROFEN 2016-0 Yes Take by Univ ers ORAL 3-08 mouth. ity of 21:21: [address] Branch aspirin 2017-0 Yes 81mg Take 81 mg Univ ers (BABY 3-08 by mouth ity of ASPIRIN) 81 21:21: daily. [place] mg che[place]able 23 Medical tablet Branch ACETAMINOPH 2016- Yes Take by Un ibrahima EN (TYLENOL 3-08 mouth. ity of ORAL) 21:21: [place] [address] Medical Branch DM/PSEUDOEP 2017-0 Yes Take by Un ibrahima HED/ACETAMI 3-08 mouth. ity of NOPHEN 21:21: [place] ([place] [address] Medical DAYQUIL Branch ORAL) IBUPROFEN 2017-0 Yes Take by Univ ers ORAL 3-08 mouth. ity of 21:21: [place] 23 Medical Branch aspirin 2016- Yes 81mg Take 81 mg Univ ers (BABY 3-08 by mouth ity of ASPIRIN) 81 21:21: daily. [place] mg che[place]able 23 Medical tablet Branch ACETAMINOPH Yes Take by Un ibrahima EN (TYLENOL 3-08 mouth. ity of ORAL) 21:21: [place] 23 Medical Branch DM/PSEUDOEP 2017- Yes Take by Un ibrahima HED/ACETAMI 3-08 mouth. ity of NOPHEN 21:21: [place] (VIC[place] 23 Medical DAYQUIL Branch ORAL) IBUPROFEN Yes Take by [facility] ers ORAL 3-08 mouth. ity of 21:21: [place] Medical Branch SERTraline Yes [id number] TAKE ONE Univers 50 mg 3-02 TABLET BY ity of tablet 00:00: MOUTH [place] 00 DAILY FOR Medical 30 DAYS. Branch SERTraline Yes [id number] TAKE ONE Univers 50 mg 3-02 TABLET BY ity of tablet 00:00: MOUTH [place] 00 DAILY FOR Medical 30 DAYS. Branch SERTraline Yes [id number] TAKE ONE Univers 50 mg 3-02 TABLET BY ity of tablet 00:00: MOUTH [place] 00 DAILY FOR Medical 30 DAYS. Branch SERTraline Yes [id number] TAKE ONE Univers 50 mg 3-02 TABLET BY ity of tablet 00:00: MOUTH [place] 00 DAILY FOR Medical 30 DAYS. Branch SERTraline Yes [id number] TAKE ONE Univers 50 mg 3-02 TABLET BY ity of tablet 00:00: MOUTH [place] 00 DAILY FOR Medical 30 DAYS. Branch SERTraline Yes [id number] TAKE ONE [facility] 50 mg 3-02 TABLET BY [facility] of tablet 00:00: MOUTH [place] 00 DAILY FOR Medical 30 DAYS. [facility] SERTraline Yes [id number] TAKE ONE [facility] 50 mg 3-02 TABLET BY [facility]y of tablet 00:00: MOUTH [place] 00 DAILY FOR Medical 30 DAYS. [facility] SERTraline Yes [id number] TAKE ONE [facility] 50 mg 3-02 TABLET BY [facility]y of tablet 00:00: MOUTH [place] 00 DAILY FOR Medical 30 DAYS. [facility] SERTraline Yes [id number] TAKE ONE [facility] 50 mg 3-02 TABLET BY [facility]y of tablet 00:00: MOUTH [place] 00 DAILY FOR Medical 30 DAYS. [facility] SERTraline Yes [id number] TAKE ONE [facility] 50 mg 3-02 TABLET BY [facility]y of tablet 00:00: MOUTH [place] 00 DAILY FOR Medical 30 DAYS. [place] SERTraline Yes [id number] TAKE ONE [facility] 50 mg 3-02 TABLET BY ity of tablet 00:00: MOUTH [place] 00 DAILY FOR Medical 30 DAYS. [place] SERTraline Yes [id number] TAKE ONE [facility] 50 mg 3-02 TABLET BY ity of tablet 00:00: MOUTH [place] 00 DAILY FOR Medical 30 DAYS. [place] SERTraline Yes [id number] TAKE ONE [facility] 50 mg 3-02 TABLET BY ity of tablet 00:00: MOUTH [place] 00 DAILY FOR Medical 30 DAYS. [place] SERTraline Yes [id number] TAKE ONE [facility] 50 mg 3-02 TABLET BY ity of tablet 00:00: MOUTH [place] 00 DAILY FOR Medical 30 DAYS. [place] SERTraline Yes [id number] TAKE ONE [facility] 50 mg 3-02 TABLET BY ity of tablet 00:00: MOUTH [place] 00 DAILY FOR Medical 30 DAYS. [place] SERTraline Yes [id number] TAKE ONE [facility] 50 mg 3-02 TABLET BY ity of tablet 00:00: MOUTH [place] 00 DAILY FOR Medical 30 DAYS. [place] SERTraline Yes [id number] TAKE ONE [facility] 50 mg 3-02 TABLET BY ity of tablet 00:00: MOUTH [place] 00 DAILY FOR Medical 30 DAYS. [place] SERTraline Yes [id number] TAKE ONE [facility] 50 mg 3-02 TABLET BY ity of tablet 00:00: MOUTH [place] 00 DAILY FOR Medical 30 DAYS. [place] SERTraline Yes [id number] TAKE ONE [facility] 50 mg 3-02 TABLET BY ity of tablet 00:00: MOUTH [place] 00 DAILY FOR Medical 30 DAYS. [place] SERTraline Yes [id number] TAKE ONE [facility] 50 mg 3-02 TABLET BY ity of tablet 00:00: MOUTH [place] 00 DAILY FOR Medical 30 DAYS. [place] Asprin Ec Asprin Ec No 1 Q1D [...] Source Name Name influenza, influenza, 2019-11-30 Completed [place] injectable, injectable, 11:22:00 [facility] quadrivalent, quadrivalent, [facility] preservative free preservative free Tdap Tdap 2019-11-30 Completed [place] 11:21:00 [facility] Influenza Virus 2015-12-05 Completed [facility] of Vaccine Quad IM 00:00:00 [facility] Multi-dose 6+ MO Branch Meningococcal B, OMV 2015-12-05 Completed Univ ersity of 00:00:00 [facility] Meningococcal B, OMV 2015-12-05 Completed Univ ersity of 00:00:00 [facility] Influenza Virus 2015-12-05 Completed [facility] y of Vaccine Quad IM 3+ 00:00:00 [facility] Influenza Virus 2015-12-05 Completed [facility] y of Vaccine Quad IM 00:00:00 [place] [facility] Multi-dose 6+ MO [facility] Meningococcal B, OMV 2015-12-05 Completed Univ ersity of 00:00:00 [facility] Meningococcal B, OMV 2015-12-05 Completed Univ ersity of 00:00:00 [facility] Influenza Virus 2015-12-05 Completed [facility] y of Vaccine Quad IM 3+ 00:00:00 [facility] Influenza Virus 2015-12-05 Completed [facility] of Vaccine Quad IM 00:00:00 [place] [facility] Multi-dose 6+ MO [facility] Meningococcal B, OMV 2015-12-05 Completed [facility] ersity of 00:00:00 [facility] Meningococcal B, OMV 2015-12-05 Completed [facility] ersity of 00:00:00 [facility] Influenza Virus 2015-12-05 Completed [facility] y of Vaccine Quad IM 3+ 00:00:00 [facility] Influenza Virus 2015-12-05 Completed [facility] of Vaccine Quad IM 00:00:00 [place] [facility] Multi-dose 6+ MO [facility] Meningococcal B, OMV 2015-12-05 Completed Univ ersity of 00:00:00 [facility] Meningococcal B, OMV 2015-12-05 Completed [facility] ersity of 00:00:00 [facility] Influenza Virus 2015-12-05 Completed [facility] y of Vaccine Quad IM 3+ 00:00:00 [facility] Influenza Virus 2015-12-05 Completed [facility] of Vaccine Quad IM 00:00:00 [place] [facility] Multi-dose 6+ MO [facility] Meningococcal B, OMV 2015-12-05 Completed [facility] ersity of 00:00:00 [facility] Meningococcal B, OMV 2015-12-05 Completed Univ ersity of 00:00:00 [facility] Influenza Virus 2015-12-05 Completed [facility] y of Vaccine Quad IM 3+ 00:00:00 [facility] Meningococcal B, OMV 2015-12-05 Completed Univ ersity of 00:00:00 [facility] Influenza Virus 2015-12-05 Completed [facility] y of Vaccine Quad IM 3+ 00:00:00 [facility] Influenza Virus 2015-12-05 Completed [facility] of Vaccine Quad IM 00:00:00 [place] [facility] Multi-dose 6+ MO [facility] Meningococcal B, OMV 2015-12-05 Completed [facility] ersity of 00:00:00 [facility] Meningococcal B, OMV 2015-12-05 Completed Univ ersity of 00:00:00 [facility] Influenza Virus 2015-12-05 Completed [facility] y of Vaccine Quad IM 3+ 00:00:00 [facility] Influenza Virus 2015-12-05 Completed [facility] of Vaccine Quad IM 00:00:00 [place] [facility] Multi-dose 6+ MO [facility] Meningococcal B, OMV 2015-12-05 Completed Univ ersity of 00:00:00 [facility] Meningococcal B, OMV 2015-12-05 Completed Univ ersity of 00:00:00 [facility] Influenza Virus 2015-12-05 Completed [facility] y of Vaccine Quad IM 3+ 00:00:00 [facility] Influenza Virus 2015-12-05 Completed [facility] of Vaccine Quad IM 00:00:00 [place] [facility] Multi-dose 6+ MO [facility] Meningococcal B, OMV 2015-12-05 Completed Univ ersity of 00:00:00 [facility] Meningococcal B, OMV 2015-12-05 Completed Univ ersity of 00:00:00 [facility] Influenza Virus 2015-12-05 Completed [facility] y of Vaccine Quad IM 3+ 00:00:00 [facility] Influenza Virus 2015-12-05 Completed [facility] y of Vaccine Quad IM 00:00:00 [place] [facility] Multi-dose 6+ MO [facility] Meningococcal B, OMV 2015-12-05 Completed Univ ersity of 00:00:00 [facility] Meningococcal B, OMV 2015-12-05 Completed Univ ersity of 00:00:00 [facility] Influenza Virus 2015-12-05 Completed [facility] y of Vaccine Quad IM 3+ 00:00:00 [facility] Influenza Virus 2015-12-05 Completed [facility] y of Vaccine Quad IM 00:00:00 [place] [facility] Multi-dose 6+ MO [facility] Meningococcal B, OMV 2015-12-05 Completed Univ ersity of 00:00:00 [facility] Influenza Virus 2015-12-05 Completed [facility] y of Vaccine Quad IM 00:00:00 [place] [facility] Multi-dose 6+ MO [facility] Meningococcal B, OMV 2015-12-05 Completed Univ ersity of 00:00:00 [facility] Influenza Virus 2015-12-05 Completed [facility] y of Vaccine Quad IM 3+ 00:00:00 [facility] Meningococcal B, OMV 2015-12-05 Completed Univ ersity of 00:00:00 [facility] Influenza Virus 2015-12-05 Completed [facility] y of Vaccine Quad IM 00:00:00 [place] [facility] Multi-dose 6+ MO [facility] Meningococcal B, OMV 2015-12-05 Completed Univ ersity of 00:00:00 [facility] Meningococcal B, OMV 2015-12-05 Completed Univ ersity of 00:00:00 [facility] Influenza Virus 2015-12-05 Completed [facility] y of Vaccine Quad IM 3+ 00:00:00 [facility] Influenza Virus 2015-12-05 Completed [facility] y of Vaccine Quad IM 00:00:00 [place] [facility] Multi-dose 6+ MO [facility] Meningococcal B, OMV 2015-12-05 Completed [facility] ersity of 00:00:00 [facility] Meningococcal B, OMV 2015-12-05 Completed [facility] ersity of 00:00:00 [facility] Influenza Virus 2015-12-05 Completed [facility] y of Vaccine Quad IM 3+ 00:00:00 [facility] Influenza Virus 2015-12-05 Completed [facility] y of Vaccine Quad IM 00:00:00 [place] [facility] Multi-dose 6+ MO [facility] Meningococcal B, OMV 2015-12-05 Completed Univ ersity of 00:00:00 [facility] Meningococcal B, OMV 2015-12-05 Completed Univ ersity of 00:00:00 [facility] Influenza Virus 2015-12-05 Completed [facility] y of Vaccine Quad IM 3+ 00:00:00 [facility] Influenza Virus 2015-12-05 Completed [facility] y of Vaccine Quad IM 00:00:00 [place] [facility] Multi-dose 6+ MO [facility] Meningococcal B, OMV 2015-12-05 Completed [facility] ersity of 00:00:00 [facility] Meningococcal B, OMV 2015-12-05 Completed [facility] ersity of 00:00:00 [facility] Influenza Virus 2015-12-05 Completed [facility] y of Vaccine Quad IM 3+ 00:00:00 [facility] Meningococcal B, OMV 2015-12-05 Completed Univ ersity of 00:00:00 [facility] Influenza Virus 2015-12-05 Completed [facility] y of Vaccine Quad IM 3+ 00:00:00 [facility] Influenza Virus 2015-12-05 Completed [facility] y of Vaccine Quad IM 00:00:00 [place] [facility] Multi-dose 6+ MO Branch Meningococcal B, OMV 2015-12-05 Completed Univ ersity of 00:00:00 [facility] Meningococcal B, OMV 2015-12-05 Completed Univ ersity of 00:00:00 [facility] Influenza Virus 2015-12-05 Completed [facility] y of Vaccine Quad IM 3+ 00:00:00 [facility] Influenza Virus 2015-12-05 Completed [facility] y of Vaccine Quad IM 00:00:00 [place] [facility] Multi-dose 6+ MO [facility] Meningococcal B, OMV 2015-12-05 Completed Univ ersity of 00:00:00 [facility] Meningococcal B, OMV 2015-12-05 Completed Univ ersity of 00:00:00 [facility] Influenza Virus 2015-12-05 Completed [facility] y of Vaccine Quad IM 3+ 00:00:00 [facility] Influenza Virus 2015-12-05 Completed [facility] y of Vaccine Quad IM 00:00:00 [place] [facility] Multi-dose 6+ MO [facility] Meningococcal B, OMV 2015-12-05 Completed Univ ersity of 00:00:00 [facility] Meningococcal B, OMV 2015-12-05 Completed Univ ersity of 00:00:00 [facility] Influenza Virus 2015-12-05 Completed [facility] y of Vaccine Quad IM 3+ 00:00:00 [facility] Influenza Virus 2015-12-05 Completed [facility] y of Vaccine Quad IM 00:00:00 [place] [facility] Multi-dose 6+ MO [facility] Meningococcal B, OMV 2015-12-05 Completed [facility] ersity of 00:00:00 [facility] Meningococcal B, OMV 2015-12-05 Completed [facility] ersity of 00:00:00 [facility] Influenza Virus 2015-12-05 Completed [facility]it y of Vaccine Quad IM 3+ 00:00:00 [facility] Influenza Virus 2015-12-05 Completed [facility] y of Vaccine Quad IM 00:00:00 [place] [facility] Multi-dose 6+ MO Branch Meningococcal B, OMV 2015-12-05 Completed [facility] ersity of 00:00:00 [place] [facility] Influenza Virus 2014-04-18 Completed Universit y [...] [facility] y of Vaccine Quad IM 00:00:00 [place] [facility] Multi-dose 6+ MO Branch Varicella [...] of (varivax)(chicken 00:00:00 [place] [facility] pox) [place] Influenza Virus 2011-02-27 Completed [facility]it y of Vaccine 00:00:00 [facility] Meningococcal 2011-02-27 Completed University of Vaccine 00:00:00 [facility] Influenza Virus 2011-02-27 Completed [facility]it y of Vaccine Quad IM 3+ 00:00:00 [facility] Influenza Virus 2011-02-27 Completed [facility]it y of Vaccine 00:00:00 [facility] Meningococcal 2011-02-27 Completed University of Vaccine 00:00:00 [facility] Influenza Virus 2011-02-27 Completed [facility]it y of Vaccine Quad IM 3+ 00:00:00 [facility] Influenza Virus 2011-02-27 Completed [facility] y of Vaccine 00:00:00 [facility] Meningococcal 2011-02-27 Completed University of Vaccine 00:00:00 [facility] Influenza Virus 2011-02-27 Completed [facility] y of Vaccine Quad IM 3+ 00:00:00 [facility] Influenza Virus 2011-02-27 Completed [facility] y of Vaccine 00:00:00 [facility] Meningococcal 2011-02-27 Completed University of Vaccine 00:00:00 [facility] Influenza Virus 2011-02-27 Completed [facility] y of Vaccine 00:00:00 [facility] Meningococcal 2011-02-27 Completed [facility] of Vaccine 00:00:00 [facility] Influenza Virus 2011-02-27 Completed [facility] y of Vaccine Quad IM 3+ 00:00:00 [facility] Influenza Virus 2011-02-27 Completed [facility] y of Vaccine 00:00:00 [facility] Meningococcal 2011-02-27 Completed [facility] of Vaccine 00:00:00 [facility] Influenza Virus 2011-02-27 Completed [facility] y of Vaccine Quad IM 3+ 00:00:00 [facility] Influenza Virus 2011-02-27 Completed [facility] y of Vaccine 00:00:00 [facility] Meningococcal 2011-02-27 Completed [facility] of Vaccine 00:00:00 [facility] Influenza Virus 2011-02-27 Completed [facility] y of Vaccine Quad IM 3+ 00:00:00 [facility] Influenza Virus 2011-02-27 Completed [facility] y of Vaccine 00:00:00 [facility] Meningococcal 2011-02-27 Completed [facility] of Vaccine 00:00:00 [facility] Influenza Virus 2011-02-27 Completed [facility] y of Vaccine Quad IM 3+ 00:00:00 [facility] Influenza Virus 2011-02-27 Completed [facility] y of Vaccine 00:00:00 [facility] Meningococcal 2011-02-27 Completed [facility] of Vaccine 00:00:00 [facility] Influenza Virus 2011-02-27 Completed [facility] y of Vaccine Quad IM 3+ 00:00:00 [facility] Influenza Virus 2011-02-27 Completed [facility] y of Vaccine 00:00:00 [facility] Meningococcal 2011-02-27 Completed [facility] of Vaccine 00:00:00 [facility] Influenza Virus 2011-02-27 Completed [facility] y of Vaccine Quad IM 3+ 00:00:00 [facility] Influenza Virus 2011-02-27 Completed [facility] y of Vaccine Quad IM 3+ 00:00:00 [facility] Influenza Virus 2011-02-27 Completed [facility] y of Vaccine 00:00:00 [facility] Meningococcal 2011-02-27 Completed University of Vaccine 00:00:00 [facility] Influenza Virus 2011-02-27 Completed [facility] y of Vaccine Quad IM 3+ 00:00:00 [facility] Influenza Virus 2011-02-27 Completed [facility] y of Vaccine 00:00:00 [facility] Meningococcal 2011-02-27 Completed [facility] of Vaccine 00:00:00 [facility] Influenza Virus 2011-02-27 Completed [facility] y of Vaccine Quad IM 3+ 00:00:00 [facility] Influenza Virus 2011-02-27 Completed [facility] y of Vaccine 00:00:00 [facility] Meningococcal 2011-02-27 Completed [facility] of Vaccine 00:00:00 [facility] Influenza Virus 2011-02-27 Completed [facility] y of Vaccine Quad IM 3+ 00:00:00 [facility] Influenza Virus 2011-02-27 Completed [facility] y of Vaccine 00:00:00 [facility] Meningococcal 2011-02-27 Completed University of Vaccine 00:00:00 [facility] Influenza Virus 2011-02-27 Completed [facility] y of Vaccine Quad IM 3+ 00:00:00 [facility] Influenza Virus 2011-02-27 Completed [facility] y of Vaccine 00:00:00 [facility] Meningococcal 2011-02-27 Completed [facility] of Vaccine 00:00:00 [facility] Influenza Virus 2011-02-27 Completed [facility] y of Vaccine 00:00:00 [facility] Meningococcal 2011-02-27 Completed [facility] of Vaccine 00:00:00 [facility] Influenza Virus 2011-02-27 Completed [facility] y of Vaccine Quad IM 3+ 00:00:00 [facility] Influenza Virus 2011-02-27 Completed [facility] y of Vaccine 00:00:00 [facility] Meningococcal 2011-02-27 Completed [facility] of Vaccine 00:00:00 [facility] Influenza Virus 2011-02-27 Completed [facility] y of Vaccine Quad IM 3+ 00:00:00 [facility] Influenza Virus 2011-02-27 Completed [facility] y of Vaccine 00:00:00 [facility] Meningococcal 2011-02-27 Completed [facility] of Vaccine 00:00:00 [facility] Influenza Virus 2011-02-27 Completed [facility] y of Vaccine Quad IM 3+ 00:00:00 [facility] Influenza Virus 2011-02-27 Completed [facility] y of Vaccine 00:00:00 [facility] Meningococcal 2011-02-27 Completed [facility] of Vaccine 00:00:00 [facility] Influenza Virus 2011-02-27 Completed [facility] y of Vaccine Quad IM 3+ 00:00:00 [facility] Influenza Virus 2011-02-27 Completed [facility] y of Vaccine 00:00:00 [facility] Meningococcal 2011-02-27 Completed [facility] of Vaccine 00:00:00 [facility] Influenza Virus 2011-02-27 Completed [facility] y of Vaccine Quad IM 3+ 00:00:00 [facility] Influenza Virus 2011-02-27 Completed [facility] y of Vaccine Quad IM 3+ 00:00:00 [facility] Influenza Virus 2009-12-14 Completed [facility] y of Vaccine Quad IM 3+ 00:00:00 [facility] Influenza Virus 2009-12-14 Completed [facility] y of Vaccine Quad IM 3+ 00:00:00 [facility] Influenza Virus 2009-12-14 Completed [facility] y of Vaccine Quad IM 3+ 00:00:00 [facility] Influenza Virus 2009-12-14 Completed [facility] y of Vaccine Quad IM 3+ 00:00:00 [facility] Influenza Virus 2009-12-14 Completed [facility] y of Vaccine Quad IM 3+ 00:00:00 [facility] Influenza Virus 2009-12-14 Completed [facility] y of Vaccine Quad IM 3+ 00:00:00 [facility] Influenza Virus 2009-12-14 Completed [facility] y of Vaccine Quad IM 3+ 00:00:00 [facility] Influenza Virus 2009-12-14 Completed [facility] y of Vaccine Quad IM 3+ 00:00:00 [facility] Influenza Virus 2009-12-14 Completed [facility] y of Vaccine Quad IM 3+ 00:00:00 [facility] Influenza Virus 2009-12-14 Completed [facility] y of Vaccine Quad IM 3+ 00:00:00 [facility] Influenza Virus 2009-12-14 Completed [facility] y of Vaccine Quad IM 3+ 00:00:00 [facility] Influenza Virus 2009-12-14 Completed [facility] y of Vaccine Quad IM 3+ 00:00:00 [facility] Influenza Virus 2009-12-14 Completed [facility] y of Vaccine Quad IM 3+ 00:00:00 [facility] Influenza Virus 2009-12-14 Completed [facility] y of Vaccine Quad IM 3+ 00:00:00 [facility] Influenza Virus 2009-12-14 Completed [facility] y of Vaccine Quad IM 3+ 00:00:00 [facility] Influenza Virus 2009-12-14 Completed [facility] y of Vaccine Quad IM 3+ 00:00:00 [facility] Influenza Virus 2009-12-14 Completed [facility] y of Vaccine Quad IM 3+ 00:00:00 [facility] Influenza Virus 2009-12-14 Completed [facility] y of Vaccine Quad IM 3+ 00:00:00 [facility] Influenza Virus 2009-12-14 Completed [facility] y of Vaccine Quad IM 3+ 00:00:00 [facility] Influenza Virus 2009-12-14 Completed [facility]it y of Vaccine Quad IM 3+ 00:00:00 [facility] Influenza Virus 2009-12-12 Completed [facility] y of Vaccine 00:00:00 [facility] Influenza Virus 2009-12-12 Completed [facility] y of Vaccine 00:00:00 [facility] Influenza Virus 2009-12-12 Completed [facility] y of Vaccine 00:00:00 [facility] Influenza Virus 2009-12-12 Completed [facility] y of Vaccine 00:00:00 [facility] Influenza Virus 2009-12-12 Completed [facility] y of Vaccine 00:00:00 [facility] Influenza Virus 2009-12-12 Completed [facility]it y of Vaccine 00:00:00 [facility] Influenza Virus 2009-12-12 Completed [facility] y of Vaccine 00:00:00 [facility] Influenza Virus 2009-12-12 Completed [facility] y of Vaccine 00:00:00 [facility] Influenza Virus 2009-12-12 Completed [facility] y of Vaccine 00:00:00 [facility] Influenza Virus 2009-12-12 Completed [facility] y of Vaccine 00:00:00 [facility] Influenza Virus 2009-12-12 Completed [facility] y of Vaccine 00:00:00 [facility] Influenza Virus 2009-12-12 Completed [facility] y of Vaccine 00:00:00 [facility] Influenza Virus 2009-12-12 Completed [facility] y of Vaccine 00:00:00 [facility] Influenza Virus 2009-12-12 Completed [facility] y of Vaccine 00:00:00 [facility] Influenza Virus 2009-12-12 Completed [facility]it y of Vaccine 00:00:00 [facility] Influenza Virus 2009-12-12 Completed [facility] y of Vaccine 00:00:00 [facility] Influenza Virus 2009-12-12 Completed [facility] y of Vaccine 00:00:00 [facility] Influenza Virus 2009-12-12 Completed [facility] y of Vaccine 00:00:00 [facility] Influenza Virus 2009-12-12 Completed [facility] y of Vaccine 00:00:00 [facility] Influenza Virus 2009-12-12 Completed [facility] y of Vaccine 00:00:00 [facility] Influenza Virus 2008-12-12 Completed [facility] y of Vaccine 00:00:00 [facility] Tdap 2008-12-12 Completed University of 00:00:00 [facility] Influenza Virus 2008-12-12 Completed [facility]it y of Vaccine Quad IM 3+ 00:00:00 [facility] Influenza Virus 2008-12-12 Completed [facility] y of Vaccine 00:00:00 [facility] Tdap 2008-12-12 Completed [facility] of 00:00:00 [facility] Influenza Virus 2008-12-12 Completed [facility]it y of Vaccine Quad IM 3+ 00:00:00 [facility] Influenza Virus 2008-12-12 Completed [facility] y of Vaccine 00:00:00 [facility] Tdap 2008-12-12 Completed [facility] of 00:00:00 [facility] Influenza Virus 2008-12-12 Completed [facility]it y of Vaccine Quad IM 3+ 00:00:00 [facility] Influenza Virus 2008-12-12 Completed [facility] y of Vaccine 00:00:00 [facility] Influenza Virus 2008-12-12 Completed [facility] y of Vaccine 00:00:00 [facility] Tdap 2008-12-12 Completed [facility] of 00:00:00 [facility] Tdap 2008-12-12 Completed [facility] of 00:00:00 [facility] Influenza Virus 2008-12-12 Completed [facility]it y of Vaccine Quad IM 3+ 00:00:00 [facility] Influenza Virus 2008-12-12 Completed [facility] y of Vaccine 00:00:00 [facility] Tdap 2008-12-12 Completed [facility] of 00:00:00 [facility] Influenza Virus 2008-12-12 Completed [facility] y of Vaccine Quad IM 3+ 00:00:00 [facility] Influenza Virus 2008-12-12 Completed [facility] y of Vaccine 00:00:00 [facility] TDAP 2008-12-12 Completed [facility] of 00:00:00 [facility] Influenza Virus 2008-12-12 Completed [facility] y of Vaccine Quad IM 3+ 00:00:00 [facility] Influenza Virus 2008-12-12 Completed [facility] y of Vaccine 00:00:00 [facility] TDAP 2008-12-12 Completed [facility] of 00:00:00 [facility] Influenza Virus 2008-12-12 Completed [facility] y of Vaccine Quad IM 3+ 00:00:00 [facility] Influenza Virus 2008-12-12 Completed [facility] y of Vaccine 00:00:00 [facility] TDAP 2008-12-12 Completed [facility] of 00:00:00 [facility] Influenza Virus 2008-12-12 Completed [facility] y of Vaccine Quad IM 3+ 00:00:00 [facility] Influenza Virus 2008-12-12 Completed [facility] Vaccine 00:00:00 [facility] TDAP 2008-12-12 Completed [facility] 00:00:00 [facility] Influenza Virus 2008-12-12 Completed [facility] Vaccine Quad IM 3+ 00:00:00 [facility] Influenza Virus 2008-12-12 Completed [facility] of Vaccine Quad IM 3+ 00:00:00 [facility] Influenza Virus 2008-12-12 Completed [facility] Vaccine 00:00:00 [facility] TDAP 2008-12-12 Completed [facility] 00:00:00 [facility] Influenza Virus 2008-12-12 Completed [facility] of Vaccine Quad IM 3+ 00:00:00 [facility] Influenza Virus 2008-12-12 Completed [facility] Vaccine 00:00:00 [facility] TDAP 2008-12-12 Completed [facility] 00:00:00 [facility] Influenza Virus 2008-12-12 Completed [facility] of Vaccine Quad IM 3+ 00:00:00 [facility] Influenza Virus 2008-12-12 Completed [facility] Vaccine 00:00:00 [facility] TDAP 2008-12-12 Completed [facility] 00:00:00 [facility] Influenza Virus 2008-12-12 Completed [facility] of Vaccine Quad IM 3+ 00:00:00 [facility] Influenza Virus 2008-12-12 Completed [facility] Vaccine 00:00:00 [facility] TDAP 2008-12-12 Completed [facility] 00:00:00 [facility] Influenza Virus 2008-12-12 Completed [facility] Vaccine 00:00:00 [facility] Influenza Virus 2008-12-12 Completed [facility] of Vaccine Quad IM 3+ 00:00:00 [facility] Influenza Virus 2008-12-12 Completed [facility] Vaccine 00:00:00 [facility] TDAP 2008-12-12 Completed [facility] 00:00:00 [facility] Tdap 2008-12-12 Completed [facility] 00:00:00 [facility] Influenza Virus 2008-12-12 Completed [facility] of Vaccine Quad IM 3+ 00:00:00 [facility] Influenza Virus 2008-12-12 Completed [facility] Vaccine 00:00:00 [facility] TDAP 2008-12-12 Completed [facility] 00:00:00 [facility] Influenza Virus 2008-12-12 Completed [facility] of Vaccine Quad IM 3+ 00:00:00 [facility] Influenza Virus 2008-12-12 Completed [facility] Vaccine 00:00:00 [facility] TDAP 2008-12-12 Completed [facility] 00:00:00 [facility] Influenza Virus 2008-12-12 Completed [facility] of Vaccine Quad IM 3+ 00:00:00 [facility] Influenza Virus 2008-12-12 Completed [facility] Vaccine 00:00:00 [facility] TDAP 2008-12-12 Completed [facility] 00:00:00 [facility] Influenza Virus 2008-12-12 Completed [facility] of Vaccine Quad IM 3+ 00:00:00 [facility] Influenza Virus 2008-12-12 Completed [facility] Vaccine 00:00:00 [facility] TDAP 2008-12-12 Completed [facility] 00:00:00 [facility] Influenza Virus 2008-12-12 Completed [facility] of Vaccine Quad IM 3+ 00:00:00 [facility] Influenza Virus 2008-12-12 Completed [facility] of Vaccine Quad IM 3+ 00:00:00 [facility] Influenza Virus 2008-01-26 Completed [facility] Vaccine 00:00:00 [facility] Influenza Virus 2008-01-26 Completed [facility] Vaccine 00:00:00 [facility] Influenza Virus 2008-01-26 Completed [facility] Vaccine 00:00:00 [facility] Influenza Virus 2008-01-26 Completed [facility] Vaccine 00:00:00 [facility] Influenza Virus 2008-01-26 Completed [facility] Vaccine 00:00:00 [facility] Influenza Virus 2008-01-26 Completed [facility] Vaccine 00:00:00 [facility] Influenza Virus 2008-01-26 Completed [facility] Vaccine 00:00:00 [facility] Influenza Virus 2008-01-26 Completed [facility] Vaccine 00:00:00 [facility] Influenza Virus 2008-01-26 Completed [facility] Vaccine 00:00:00 [facility] Influenza Virus 2008-01-26 Completed [facility] Vaccine 00:00:00 [facility] Influenza Virus 2008-01-26 Completed [facility] Vaccine 00:00:00 [facility] Influenza Virus 2008-01-26 Completed [facility] Vaccine 00:00:00 [facility] Influenza Virus 2008-01-26 Completed [facility] Vaccine 00:00:00 [facility] Influenza Virus 2008-01-26 Completed [facility] Vaccine 00:00:00 [facility] Influenza Virus 2008-01-26 Completed [facility] Vaccine 00:00:00 [facility] Influenza Virus 2008-01-26 Completed [facility] Vaccine 00:00:00 [facility] Influenza Virus 2008-01-26 Completed [facility] Vaccine 00:00:00 [facility] Influenza Virus 2008-01-26 Completed [facility] Vaccine 00:00:00 [facility] Influenza Virus 2008-01-26 Completed [facility] Vaccine 00:00:00 [facility] Influenza Virus 2008-01-26 Completed [facility] Vaccine 00:00:00 [facility] Influenza Virus 2006-01-27 Completed [facility] of Vaccine Quad IM 3+ 00:00:00 [facility] Influenza Virus 2006-01-27 Completed [facility] of Vaccine Quad IM 3+ 00:00:00 [facility] Influenza Virus 2006-01-27 Completed [facility] of Vaccine Quad IM 3+ 00:00:00 [facility] Influenza Virus 2006-01-27 Completed [facility] of Vaccine Quad IM 3+ 00:00:00 [facility] Influenza Virus 2006-01-27 Completed [facility] of Vaccine Quad IM 3+ 00:00:00 [facility] Influenza Virus 2006-01-27 Completed [facility] of Vaccine Quad IM 3+ 00:00:00 [facility] Influenza Virus 2006-01-27 Completed [facility] of Vaccine Quad IM 3+ 00:00:00 [facility] Influenza Virus 2006-01-27 Completed [facility] of Vaccine Quad IM 3+ 00:00:00 [facility] Influenza Virus 2006-01-27 Completed [facility] of Vaccine Quad IM 3+ 00:00:00 [facility] Influenza Virus 2006-01-27 Completed [facility] of Vaccine Quad IM 3+ 00:00:00 [facility] Influenza Virus 2006-01-27 Completed [facility] of Vaccine Quad IM 3+ 00:00:00 [facility] Influenza Virus 2006-01-27 Completed [facility] of Vaccine Quad IM 3+ 00:00:00 [facility] Influenza Virus 2006-01-27 Completed [facility] of Vaccine Quad IM 3+ 00:00:00 [facility] Influenza Virus 2006-01-27 Completed [facility] of Vaccine Quad IM 3+ 00:00:00 [facility] Influenza Virus 2006-01-27 Completed [facility] of Vaccine Quad IM 3+ 00:00:00 [facility] Influenza Virus 2006-01-27 Completed [facility] of Vaccine Quad IM 3+ 00:00:00 [facility] Influenza Virus 2006-01-27 Completed [facility] of Vaccine Quad IM 3+ 00:00:00 [facility] Influenza Virus 2006-01-27 Completed [facility] of Vaccine Quad IM 3+ 00:00:00 [facility] Influenza Virus 2006-01-27 Completed [facility] of Vaccine Quad IM 3+ 00:00:00 [facility] Influenza Virus 2006-01-27 Completed [facility] of Vaccine Quad IM 3+ 00:00:00 [facility] Influenza Virus 2006-01-23 Completed [facility] Vaccine 00:00:00 [facility] Influenza Virus 2006-01-23 Completed [facility] of Vaccine Quad IM 3+ 00:00:00 [facility] Influenza Virus 2006-01-23 Completed [facility] Vaccine 00:00:00 [facility] Influenza Virus 2006-01-23 Completed [facility] of Vaccine Quad IM 3+ 00:00:00 [facility] Influenza Virus 2006-01-23 Completed [facility] Vaccine 00:00:00 [facility] Influenza Virus 2006-01-23 Completed [facility] Vaccine 00:00:00 [facility] Influenza Virus 2006-01-23 Completed [facility] of Vaccine Quad IM 3+ 00:00:00 [facility] Influenza Virus 2006-01-23 Completed [facility] Vaccine 00:00:00 [facility] Influenza Virus 2006-01-23 Completed [facility] of Vaccine Quad IM 3+ 00:00:00 [facility] Influenza Virus 2006-01-23 Completed [facility] Vaccine 00:00:00 [facility] Influenza Virus 2006-01-23 Completed [facility] of Vaccine Quad IM 3+ 00:00:00 [facility] Influenza Virus 2006-01-23 Completed [facility] of Vaccine 00:00:00 [facility] Influenza Virus 2006-01-23 Completed [facility] of Vaccine Quad IM 3+ 00:00:00 [facility] Influenza Virus 2006-01-23 Completed [facility] of Vaccine 00:00:00 [facility] Influenza Virus 2006-01-23 Completed [facility] of Vaccine Quad IM 3+ 00:00:00 [facility] Influenza Virus 2006-01-23 Completed [facility] Vaccine 00:00:00 [facility] Influenza Virus 2006-01-23 Completed [facility] of Vaccine Quad IM 3+ 00:00:00 [facility] Influenza Virus 2006-01-23 Completed [facility] of Vaccine Quad IM 3+ 00:00:00 [facility] Influenza Virus 2006-01-23 Completed [facility] Vaccine 00:00:00 [facility] Influenza Virus 2006-01-23 Completed [facility] of Vaccine Quad IM 3+ 00:00:00 [facility] Influenza Virus 2006-01-23 Completed [facility] of Vaccine 00:00:00 [facility] Influenza Virus 2006-01-23 Completed [facility] of Vaccine Quad IM 3+ 00:00:00 [facility] Influenza Virus 2006-01-23 Completed [facility] Vaccine 00:00:00 [facility] Influenza Virus 2006-01-23 Completed [facility] of Vaccine Quad IM 3+ 00:00:00 [facility] Influenza Virus 2006-01-23 Completed [facility] Vaccine 00:00:00 [facility] Influenza Virus 2006-01-23 Completed [facility] of Vaccine Quad IM 3+ 00:00:00 [facility] Influenza Virus 2006-01-23 Completed [facility] Vaccine 00:00:00 [facility] Influenza Virus 2006-01-23 Completed [facility] Vaccine 00:00:00 [facility] Influenza Virus 2006-01-23 Completed [facility] of Vaccine Quad IM 3+ 00:00:00 [facility] Influenza Virus 2006-01-23 Completed [facility] Vaccine 00:00:00 [facility] Influenza Virus 2006-01-23 Completed [facility] of Vaccine Quad IM 3+ 00:00:00 [facility] Influenza Virus 2006-01-23 Completed [facility] Vaccine 00:00:00 [facility] Influenza Virus 2006-01-23 Completed [facility] of Vaccine Quad IM 3+ 00:00:00 [facility] Influenza Virus 2006-01-23 Completed [facility] Vaccine 00:00:00 [facility] Influenza Virus 2006-01-23 Completed [facility] of Vaccine Quad IM 3+ 00:00:00 [facility] Influenza Virus 2006-01-23 Completed [facility] Vaccine 00:00:00 [facility] Influenza Virus 2006-01-23 Completed [facility] of Vaccine Quad IM 3+ 00:00:00 [facility] Influenza Virus 2006-01-23 Completed [facility] of Vaccine Quad IM 3+ 00:00:00 [facility] Influenza Virus 2006-01-23 Completed [facility] Vaccine 00:00:00 [facility] Influenza Virus 2006-01-23 Completed [facility] of Vaccine Quad IM 3+ 00:00:00 [facility] MMR 2002-10-30 Completed [facility] 00:00:00 [facility] Polio (IPV/OPV) 2002-10-30 Completed [facility] 00:00:00 [facility] MMR 2002-10-30 Completed [facility] 00:00:00 [facility] Polio (IPV/OPV) 2002-10-30 Completed [facility] 00:00:00 [facility] MMR 2002-10-30 Completed [facility] 00:00:00 [facility] Polio (IPV/OPV) 2002-10-30 Completed [facility] 00:00:00 [facility] MMR 2002-10-30 Completed [facility] 00:00:00 [facility] Polio (IPV/OPV) 2002-10-30 Completed [facility] 00:00:00 [facility] MMR 2002-10-30 Completed [facility] 00:00:00 [facility] Polio (IPV/OPV) 2002-10-30 Completed [facility] 00:00:00 [facility] MMR 2002-10-30 Completed [facility] 00:00:00 [facility] Polio (IPV/OPV) 2002-10-30 Completed [facility] 00:00:00 [facility] MMR 2002-10-30 Completed [facility] 00:00:00 [facility] MMR 2002-10-30 Completed [facility] 00:00:00 [facility] Polio (IPV/OPV) 2002-10-30 Completed [facility] 00:00:00 [facility] Polio (IPV/OPV) 2002-10-30 Completed [facility] of 00:00:00 [facility] MMR 2002-10-30 Completed [facility] 00:00:00 [facility] Polio (IPV/OPV) 2002-10-30 Completed [facility] 00:00:00 [facility] 2002-10-30 Completed [facility] 00:00:00 [facility] Polio (IPV/OPV) 2002-10-30 Completed [facility] of 00:00:00 [facility] 2002-10-30 Completed [facility] 00:00:00 [facility] Polio (IPV/OPV) 2002-10-30 Completed [facility] 00:00:00 [facility] 2002-10-30 Completed [facility] 00:00:00 [facility] Polio (IPV/OPV) 2002-10-30 Completed [facility] of 00:00:00 [facility] 2002-10-30 Completed [facility] 00:00:00 [facility] Polio (IPV/OPV) 2002-10-30 Completed [facility] of 00:00:00 [facility] 2002-10-30 Completed [facility] 00:00:00 [facility] Polio (IPV/OPV) 2002-10-30 Completed [facility] 00:00:00 [facility] 2002-10-30 Completed [facility] 00:00:00 [facility] Polio (IPV/OPV) 2002-10-30 Completed [facility] 00:00:00 [facility] 2002-10-30 Completed [facility] 00:00:00 [facility] Polio (IPV/OPV) 2002-10-30 Completed [facility] 00:00:00 [facility] 2002-10-30 Completed [facility] 00:00:00 [facility] Polio (IPV/OPV) 2002-10-30 Completed [facility] 00:00:00 [facility] 2002-10-30 Completed [facility] 00:00:00 [facility] Polio (IPV/OPV) 2002-10-30 Completed [facility] 00:00:00 [facility] 2002-10-30 Completed [facility] 00:00:00 [facility] Polio (IPV/OPV) 2002-10-30 Completed [facility] of 00:00:00 [facility] 2002-10-30 Completed [facility] 00:00:00 [facility] Polio (IPV/OPV) 2002-10-30 Completed [facility] 00:00:00 [facility] 2000-11-16 Completed [facility] of (varivax)(chicken 00:00:00 [place] [...] [facility] DTAP 1999-01-07 Completed [facility] 00:00:00 [facility] Polio (IPV/OPV) 1999-01-07 Completed [facility] 00:00:00 [facility] DTAP 1999-01-07 Completed [facility] 00:00:00 [facility] Polio (IPV/OPV) 1999-01-07 Completed [facility] of 00:00:00 [facility] DTAP 1999-01-07 Completed [facility] 00:00:00 [facility] Polio (IPV/OPV) 1999-01-07 Completed [facility] 00:00:00 [facility] DTAP 1999-01-07 Completed [facility] 00:00:00 [facility] Polio (IPV/OPV) 1999-01-07 Completed [facility] 00:00:00 [facility] DTAP 1999-01-07 Completed [facility] 00:00:00 [facility] Polio (IPV/OPV) 1999-01-07 Completed [facility] 00:00:00 [facility] DTAP 1999-01-07 Completed [facility] 00:00:00 [facility] DTAP 1999-01-07 Completed [facility] 00:00:00 [facility] Polio (IPV/OPV) 1999-01-07 Completed [facility] 00:00:00 [facility] DTAP 1999-01-07 Completed [facility] 00:00:00 [facility] Polio (IPV/OPV) 1999-01-07 Completed [facility] 00:00:00 [facility] Polio (IPV/OPV) 1999-01-07 Completed [facility] 00:00:00 [facility] DTAP 1999-01-07 Completed [facility] 00:00:00 [facility] Polio (IPV/OPV) 1999-01-07 Completed [facility] 00:00:00 [facility] DTAP 1999-01-07 Completed [facility] 00:00:00 [facility] Polio (IPV/OPV) 1999-01-07 Completed [facility] 00:00:00 [facility] DTAP 1999-01-07 Completed [facility] 00:00:00 [facility] Polio (IPV/OPV) 1999-01-07 Completed [facility] 00:00:00 [facility] DTAP 1999-01-07 Completed [facility] 00:00:00 [facility] Polio (IPV/OPV) 1999-01-07 Completed [facility] 00:00:00 [facility] DTAP 1999-01-07 Completed [facility] 00:00:00 [facility] Polio (IPV/OPV) 1999-01-07 Completed [facility] 00:00:00 [facility] DTAP 1999-01-07 Completed [facility] 00:00:00 [facility] Polio (IPV/OPV) 1999-01-07 Completed [facility] 00:00:00 [facility] DTAP 1999-01-07 Completed [facility] 00:00:00 [facility] Polio (IPV/OPV) 1999-01-07 Completed [facility] 00:00:00 [facility] DTAP 1999-01-07 Completed [facility] 00:00:00 [facility] Polio (IPV/OPV) 1999-01-07 Completed [facility] 00:00:00 [facility] DTAP 1999-01-07 Completed [facility] 00:00:00 [facility] DTAP 1999-01-07 Completed [facility] 00:00:00 [facility] Polio (IPV/OPV) 1999-01-07 Completed [facility] 00:00:00 [facility] Polio (IPV/OPV) 1999-01-07 Completed [facility] 00:00:00 [facility] DTAP 1999-01-07 Completed [facility] 00:00:00 [facility] Polio (IPV/OPV) 1999-01-07 Completed [facility] 00:00:00 [facility] DTAP 1999-01-07 Completed [facility] 00:00:00 [facility] Polio (IPV/OPV) 1999-01-07 Completed [facility] 00:00:00 [facility] HIB 3 Dose Schedule 1998-09-19 Completed Unive rsity of 00:00:00 [facility] Hep B, Adol or Pedi 1998-09-19 Completed Unive rsity of Dosage 00:00:00 [facility] HIB 3 Dose Schedule 1998-09-19 Completed Unive rsity of 00:00:00 [facility] Hep B, Adol or [...] rsity of Dosage 00:00:00 [facility] MMR 1998-06-27 Completed [...] Branch DTAP 1998-02-26 Completed [facility] 00:00:00 [facility] DTAP 1998-02-26 Completed [facility] 00:00:00 [facility] DTAP 1998-02-26 Completed [facility] 00:00:00 [facility] DTAP 1998-02-26 Completed [facility] 00:00:00 [facility] DTAP 1998-02-26 Completed [facility] 00:00:00 [facility] DTAP 1998-02-26 Completed [facility] 00:00:00 [facility] DTAP 1998-02-26 Completed [facility] 00:00:00 [facility] DTAP 1998-02-26 Completed [facility] 00:00:00 [facility] DTAP 1997 Completed [facility] 00:00:00 [facility] HIB 3 Dose Schedule 1997 Completed Unive rsity of 00:00:00 [facility] Hep B, Adol or Pedi 1997 Completed Unive rsity of Dosage 00:00:00 [facility] Polio (IPV/OPV) 1997 Completed [facility] 00:00:00 [facility] DTAP 1997 Completed [facility] 00:00:00 [facility] HIB 3 Dose Schedule 1997 Completed Unive rsity of 00:00:00 [facility] Hep B, Adol or Pedi 1997 Completed Unive rsity of Dosage 00:00:00 [facility] Polio (IPV/OPV) 1997 Completed [facility] 00:00:00 [facility] DTAP 1997 Completed [facility] 00:00:00 [facility] HIB 3 Dose Schedule 1997 Completed Unive rsity of 00:00:00 [facility] Hep B, Adol or Pedi 1997 Completed Unive rsity of Dosage 00:00:00 [facility] Polio (IPV/OPV) 1997 Completed [facility] 00:00:00 [facility] DTAP 1997 Completed [facility] 00:00:00 [facility] HIB 3 Dose Schedule 1997 Completed Unive rsity of 00:00:00 [facility] Hep B, Adol or Pedi 1997 Completed Unive rsity of Dosage 00:00:00 [facility] Polio (IPV/OPV) 1997 Completed [facility] 00:00:00 [facility] DTAP 1997 Completed [facility] 00:00:00 [facility] HIB 3 Dose Schedule 1997 Completed [facility]ive rsity [facility] 00:00:00 [facility] Hep B, Adol or Pedi 1997 Completed Unive rsity of Dosage 00:00:00 [facility] DTAP 1997 Completed [facility] 00:00:00 [facility] Polio (IPV/OPV) 1997 Completed [facility] 00:00:00 [facility] HIB 3 Dose Schedule 1997 Completed [facility]ive rsity [facility] 00:00:00 [facility] DTAP 1997 Completed [facility] 00:00:00 [facility] HIB 3 Dose Schedule 1997 Completed Unive rsity of 00:00:00 [facility] Hep B, Adol or Pedi 1997 Completed Unive rsity of Dosage 00:00:00 [facility] Hep B, Adol or Pedi 1997 Completed [facility]ive rsity of Dosage 00:00:00 [facility] Polio (IPV/OPV) 1997 Completed [facility] 00:00:00 [facility] DTAP 1997 Completed [facility] 00:00:00 [facility] HIB 3 Dose Schedule 1997 Completed [facility] rs[facility] of 00:00:00 [facility] Hep B, Adol or Pedi 1997 Completed [facility]ive rsity of Dosage 00:00:00 [facility] Polio (IPV/OPV) 1997 Completed [facility] 00:00:00 [facility] Polio (IPV/OPV) 1997 Completed [facility] 00:00:00 [facility] DTAP 1997 Completed [facility] 00:00:00 [facility] HIB 3 Dose Schedule 1997 Completed [facility] 00:00:00 [facility] Hep B, Adol or Pedi 1997 Completed [facility]ive rsity of Dosage 00:00:00 [facility] Polio (IPV/OPV) 1997 Completed [facility] 00:00:00 [facility] DTAP 1997 Completed [facility] 00:00:00 [facility] HIB 3 Dose Schedule 1997 Completed [facility] 00:00:00 [facility] Hep B, Adol or Pedi 1997 Completed [facility] rsity of Dosage 00:00:00 [facility] Polio (IPV/OPV) 1997 Completed [facility] 00:00:00 [facility] DTAP 1997 Completed [facility] 00:00:00 [facility] HIB 3 Dose Schedule 1997 Completed [facility] 00:00:00 [facility] Hep B, Adol or Pedi 1997 Completed [facility]ive rsity of Dosage 00:00:00 [facility] Polio (IPV/OPV) 1997 Completed [facility] 00:00:00 [facility] DTAP 1997 Completed [facility] 00:00:00 [facility] HIB 3 Dose Schedule 1997 Completed [facility] rs[facility] 00:00:00 [facility] Hep B, Adol or Pedi 1997 Completed [facility] D[facility]age 00:[facility]00 [facility] [place] Polio (IPV/OPV) 1997 Completed [facility] 00:00:00 [facility] DTAP 1997 Completed [facility] 00:00:00 [facility] HIB 3 Dose Schedule 1997 Completed Unive rsity of 00:00:00 [facility] Hep B, Adol or Pedi 1997 Completed Unive rsity of Dosage 00:00:00 [facility] Polio (IPV/OPV) 1997 Completed [facility] 00[facility]00:00 [facility] DTAP 1997 Completed [facility] 00:00:00 [facility] HIB 3 Dose Schedule 1997 Completed [facility]ity [facility] 00:00:00 [facility] Hep B, Adol or Pedi 1997 Completed Unive rsity of Dosage 00:00:00 [facility] Polio (IPV/OPV) 1997 Completed [facility] 00:00:00 [facility] DTAP 1997 Completed [facility] 00:00:00 [facility] HIB 3 Dose Schedule 1997 Completed Unive rsity of 00:00:00 [facility] Hep B, Adol or Pedi 1997 Completed Unive rsity of Dosage 00:00:00 [facility] Polio (IPV/OPV) 1997 Completed [facility] 00:00:00 [facility] DTAP 1997 Completed [facility] 00:00:00 [facility] DTAP 1997 Completed [facility] 00:00:00 [facility] HIB 3 Dose Schedule 1997 Completed Unive rsity of 00:00:00 [facility] Hep B, Adol or Pedi 1997 Completed Unive rsity of Dosage 00:00:00 [facility] Polio (IPV/OPV) 1997 Completed [facility] 00:00:00 [facility] HIB 3 Dose Schedule 1997 Completed Unive rsity of 00:00:00 [facility] Hep B, Adol or Pedi 1997 Completed Unive rsity of Dosage 00:00:00 [facility] [place] DTAP 1997 Completed [facility] 00:00:00 [facility] HIB 3 Dose Schedule 1997 Completed [facility] rsity of 00:00:00 [facility] Hep B, Adol or Pedi 1997 Completed Unive rsity of Dosage 00:00:00 [facility] [place] Polio (IPV/OPV) 1997 Completed [facility] 00:00:00 [facility] [place] Polio (IPV/OPV) 1997 Completed [facility] 00:00:00 [facility] [place] DTAP 1997 Completed [facility] 00:00:00 [facility] HIB 3 Dose Schedule 1997 Completed [facility] rsity [facility] 00:00:00 [facility] Hep B, Adol or Pedi 1997 Completed Unive rsity of Dosage 00:00:00 [facility] Polio (IPV/OPV) 1997 Completed [facility] 00:00:00 [facility] [place] DTAP 1997 Completed [facility] 00:00:00 [facility] HIB 3 Dose Schedule 1997 Completed Unive rsity of 00:00:00 [facility] Hep B, Adol or Pedi 1997 Completed Unive rsity of Dosage 00:00:00 [facility] [place] Polio (IPV/OPV) 1997 Completed [facility] 00:00:00 [facility] DTAP 1997 Completed [facility] 00:00:00 [facility] HIB 3 Dose Schedule 1997 Completed [facility] rsity [facility] 00:00:00 [facility] Hep B, Adol or Pedi 1997 Completed Unive rsity of Dosage 00:00:00 [facility] DTAP 1997 Completed [facility] 00:00:00 [facility] HIB 3 Dose Schedule 1997 Completed [facility] rsity of 00:00:00 [facility] Hep B, Adol or Pedi 1997 Completed Unive rsity of Dosage 00:00:00 [facility] DTAP 1997 Completed [facility] 00:00:00 [facility] HIB 3 Dose Schedule 1997 Completed [facility] rsity of 00:00:00 [facility] Hep B, Adol or Pedi 1997 Completed Unive rsity of Dosage 00:00:00 [facility] DTAP 1997 Completed [facility] 00:00:00 [facility] HIB 3 Dose Schedule 1997 Completed Unive rsity of 00:00:00 [facility] Hep B, Adol or Pedi 1997 Completed Unive rsity of Dosage 00:00:00 [facility] DTAP 1997 Completed [facility] 00:00:00 [facility] DTAP 1997 Completed [facility] 00:00:00 [facility] HIB 3 Dose Schedule 1997 Completed Unive rsity of 00:00:00 [facility] Hep B, Adol or Pedi 1997 Completed Unive rsity of Dosage 00:00:00 [facility] HIB 3 Dose Schedule 1997 Completed [facility] rsity of 00:00:00 [facility] DTAP 1997 Completed [facility] 00:00:00 [facility] HIB 3 Dose Schedule 1997 Completed [facility]ive rsity of 00:00:00 [facility] Hep B, Adol or Pedi 1997 Completed Unive rsity of Dosage 00:00:00 [facility] Hep B, Adol or Pedi 1997 Completed Unive rsity of Dosage 00:00:00 [facility] DTAP 1997 Completed University of 00:00:00 [facility] HIB 3 Dose Schedule 1997 Completed [facility]ive [facility]ity of 00:00:00 [facility] Hep B, Adol or Pedi 1997 Completed Unive rsity of Dosage 00:00:00 [facility] DTAP 1997 Completed University of 00:00:00 [facility] HIB 3 Dose Schedule 1997 Completed [facility]ive rsity of 00:00:00 [facility] Hep B, Adol or Pedi 1997 Completed Unive rsity of Dosage 00:00:00 [facility] DTAP 1997 Completed University of 00:00:00 [facility] HIB 3 Dose Schedule 1997 Completed [facility]ive rsity of 00:00:00 [facility] Hep B, Adol or Pedi 1997 Completed Unive rsity of Dosage 00:00:00 [facility] DTAP 1997 Completed [facility] 00:00:00 [facility] HIB 3 Dose Schedule 1997 Completed [facility]ive rsity of 00:00:00 [facility] Hep B, Adol or Pedi 1997 Completed Unive rsity of Dosage 00:00:00 [facility] DTAP 1997 Completed [facility] of 00:00:00 [facility] HIB 3 Dose Schedule 1997 Completed [facility]ive rsity of 00:00:00 [facility] Hep B, Adol or Pedi 1997 Completed Unive rsity of Dosage 00:00:00 [facility] DTAP 1997 Completed [facility] of 00:00:00 [facility] HIB 3 Dose Schedule 1997 Completed [facility]ive rsity of 00:00:00 [facility] Hep B, Adol or Pedi 1997 Completed Unive rsity of Dosage 00:00:00 [facility] DTAP 1997 Completed [facility] of 00:00:00 [facility] HIB 3 Dose Schedule 1997 Completed [facility]ive rsity of 00:00:00 [facility] Hep B, Adol or Pedi 1997 Completed Unive rsity of Dosage 00:00:00 [facility] DTAP 1997 Completed [facility] 00:00:00 [facility] HIB 3 Dose Schedule 1997 Completed [facility]ive rsity of 00:00:00 [facility] Hep B, Adol or Pedi 1997 Completed [facility]ive rsity of Dosage 00:00:00 [facility] DTAP 1997 Completed [facility] of 00:00:00 [facility] DTAP 1997 Completed [facility] of 00:00:00 [facility] HIB 3 Dose Schedule 1997 Completed Unive rsity of 00:00:00 [facility] Hep B, Adol or Pedi 1997 Completed Unive rsity of Dosage 00:00:00 [facility] HIB 3 Dose Schedule 1997 Completed Unive rsity of 00:00:00 [facility] DTAP 1997 Completed University of 00:00:00 [facility] HIB 3 Dose Schedule 1997 Completed [facility]ive rsity of 00:00:00 [facility] Hep B, Adol or Pedi 1997 Completed Unive rsity of Dosage 00:00:00 [facility] Hep B, Adol or Pedi 1997 Completed Unive rsity of Dosage 00:00:00 [facility] DTAP 1997 Completed [facility] of 00:00:00 [facility] HIB 3 Dose Schedule 1997 Completed Unive rsity of 00:00:00 [facility] Hep B, Adol or Pedi 1997 Completed Unive rsity of Dosage 00:00:00 [facility] DTAP 1997 Completed [facility] of 00:00:00 [facility] HIB 3 Dose Schedule 1997 Completed Unive rsity of 00:00:00 [facility] Hep B, Adol or Pedi 1997 Completed [facility]ive rsity of Dosage 00:00:00 [facility] Polio (IPV/OPV) 1997 Completed [facility] 00:00:00 [facility] Polio (IPV/OPV) 1997 Completed [facility] 00:00:00 [facility] Polio (IPV/OPV) 1997 Completed [facility] 00:00:00 [facility] Polio (IPV/OPV) 1997 Completed [facility] 00:00:00 [facility] Polio (IPV/OPV) 1997 Completed [facility] 00:00:00 [facility] Polio (IPV/OPV) 1997 Completed [facility] 00:00:00 [facility] Polio (IPV/OPV) 1997 Completed [facility] 00:00:00 [facility] Polio (IPV/OPV) 1997 Completed [facility] 00:00:00 [facility] Polio (IPV/OPV) 1997 Completed [facility] 00:00:00 [facility] Polio (IPV/OPV) 1997 Completed [facility] 00:00:00 [facility] Polio (IPV/OPV) 1997 Completed [facility] 00:00:00 [facility] Polio (IPV/OPV) 1997 Completed [facility] 00:00:00 [facility] Polio (IPV/OPV) 1997 Completed [facility] 00:00:00 [facility] [place] Polio (IPV/OPV) 1997 Completed [facility] 00:00:00 [facility] Polio (IPV/OPV) 1997 Completed [facility] 00:00:00 [facility] Polio (IPV/OPV) 1997 Completed [facility] 00:00:00 [facility] Polio (IPV/OPV) 1997 Completed [facility] 00:00:00 [facility] Polio (IPV/OPV) 1997 Completed [facility] 00:00:00 [facility] Polio (IPV/OPV) 1997 Completed [facility] 00:00:00 [facility] Polio (IPV/OPV) 1997 Completed [facility] 00:00:00 [facility] Vital Signs Vital Name Observation Time Observation Value Comments Source BP Diastolic 2020-09-12 00:00:00 55 mm[Hg] [facility] Height 2020-09-12 00:00:00 61 [in_i] [place] [facility] BMI (Body Mass 2020-09-12 00:00:00 24.6 kg/m2 [place] 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 Index) [facility] BP Systolic 2020-09-12 00:00:00 109 mm[Hg] [place] [facility] Body Weight 2020-09-12 00:00:00 2083 [oz_av] [place] [facility] Systolic blood 2020-04-04 22:53:00 107 mm[Hg] Univer sity of pressure [facility] Diastolic blood 2020-04-04 22:53:00 73 mm[Hg] Unive rsity of [facility] Heart rate 2020-04-04 22:53:00 81 /[facility] Body temperature 2020-04-04 22:53:00 37.22 [facility] 2020-04-04 22:53:00 16 /min [facility] Body height 2020-04-04 22:53:00 154.9 cm [facility] Body weight 2020-04-04 22:53:00 54.432 [facility] BMI 2020-04-04 22:53:00 22.67 kg/m2 [facility] Oxygen saturation in 2020-04-04 22:53:00 95 /min University Arterial blood by [facility] Pulse oximetry Branch Systolic blood 2020-04-04 22:53:00 107 mm[Hg] Univer sity of [facility] Diastolic blood 2020-04-04 22:53:00 73 mm[Hg] Unive rsity of [facility] Heart rate 2020-04-04 22:53:00 81 /min Univers ty [facility] Body temperature 2020-04-04 22:53:00 37.22 [facility] Respiratory rate 2020-04-04 22:53:00 16 /min [facility] Body height 2020-04-04 22:53:00 154.9 cm [facility] Body weight 2020-04-04 22:53:00 54.432 kg [facility]i ty [facility] BMI 2020-04-04 22:53:00 22.67 kg/m2 Universi ty of [facility] Oxygen saturation in 2020-04-04 22:53:00 95 /min University of Arterial blood by [facility] Pulse oximetry Branch Systolic blood 2020-04-01 11:02:00 113 mm[Hg] Univer sity of pressure [facility] Diastolic blood 2020-04-01 11:02:00 58 mm[Hg] Unive rsity of pressure [facility] Heart rate 2020-04-01 11:02:00 71 /min [facility]i ty [facility] Respiratory rate 2020-04-01 11:02:00 16 /min Univ ersity of [facility] Oxygen saturation in 2020-04-01 11:02:00 95 /min University of Arterial blood by [facility] Pulse oximetry Branch Body temperature 2020-04-01 09:09:00 36.89 Roxanne Univ ersity of [facility] Body height 2020-04-01 05:45:00 152.4 cm [facility] Body weight 2020-04-01 05:45:00 54.432 kg [facility] BMI 2020-04-01 05:45:00 23.44 kg/m2 [facility] Systolic blood 2020-04-01 11:02:00 113 mm[Hg] Univer sity of pressure [facility] Diastolic blood 2020-04-01 11:02:00 58 mm[Hg] Unive rsity of pressure [facility] Heart rate 2020-04-01 11:02:00 71 /min [facility] Respiratory rate 2020-04-01 11:02:00 16 /min Univ ersity of [facility] Oxygen saturation in 2020-04-01 11:02:00 95 /min University of Arterial blood by [facility] Pulse oximetry Branch Body temperature 2020-04-01 09:09:00 36.89 Roxanne Univ ersity of [facility] Body height 2020-04-01 05:45:00 152.4 cm [facility] Body weight 2020-04-01 05:45:00 54.432 kg [facility] BMI 2020-04-01 05:45:00 23.44 kg/m2 [facility] BP Diastolic 2020-02-01 00:00:00 62 mm[Hg] [place] [facility] Height 2020-02-01 00:00:00 61 [in_i] [place] [facility] BMI (Body Mass 2020-02-01 00:00:00 22.9 kg/m2 [place] 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 Index) [facility] BP Systolic 2020-02-01 00:00:00 106 mm[Hg] [place] [facility] Body Weight 2020-02-01 00:00:00 1942 [oz_av] [place] [facility] BP Diastolic 2020-01-04 00:00:00 64 mm[Hg] [place] [facility] Height 2020-01-04 00:00:00 61 [in_i] [place] [facility] BMI (Body Mass 2020-01-04 00:00:00 22.5 kg/m2 [place] 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 Index) [facility] BP Systolic 2020-01-04 00:00:00 112 mm[Hg] [place] [facility] Body Weight 2020-01-04 00:00:00 1905 [oz_av] [place] [facility] BP Diastolic 2019-12-07 00:00:00 61 mm[Hg] [place] [facility] Height 2019-12-07 00:00:00 61 [in_i] [place] [facility] BMI (Body Mass 2019-12-07 00:00:00 23.3 kg/m2 [place] 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 Index) [facility] BP Systolic 2019-12-07 00:00:00 122 mm[Hg] [place] [facility] Body Weight 2019-12-07 00:00:00 1974 [oz_av] [place] [facility] BP Diastolic 2019-11-30 00:00:00 68 mm[Hg] [place] [facility] Height 2019-11-30 00:00:00 61 [in_i] [place] [facility] BMI (Body Mass 2019-11-30 00:00:00 22.7 kg/m2 [facility] 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 Index) [facility] BP Systolic 2019-11-30 00:00:00 114 mm[Hg] [place] [facility] Body Weight 2019-11-30 00:00:00 1923 [oz_av] [place] [facility] Systolic blood 2019-08-18 08:21:00 125 mm[Hg] Univer sity of [facility] Diastolic blood 2019-08-18 08:21:00 63 mm[facility]Hg] [facility] 2019-08-18 08:21:00 73 /min [facility] Body temperature 2019-08-18 08:21:00 37.11 [facility] Respiratory rate 2019-08-18 08:21:00 20 /min [facility] Body height 2019-08-18 08:21:00 154.9 cm [facility] Body weight 2019-08-18 08:21:00 58.968 kg [facility] BMI 2019-08-18 08:21:00 24.56 kg/m2 [facility] Oxygen saturation in 2019-08-18 08:21:00 100 /min [facility] blood by [facility] Pulse oximetry Branch Procedures Procedure Date / Time Performing Clinician Source Performed US, transvaginal 2020-09-12 00:00:[address] [facility] CHEST PULMONARY 2020-04-01 07:54:16 Rodrigo Brewster [facility] ANGIOGRAM Medical Branch D-DIMER 2020-04-01 07:00:00 Rodrigo Brewster [place] [facility] POCT TEST 2020-04-01 06:45:00 Rodrigo Brewster [facility] BLOOD CULTURE SCREEN 2020-04-01 06:38:00 Rodrigo Brewster [facility] TROPONIN I 2020-04-01 06:27:00 Rodrigo Brewster [place] [facility] COMP. METABOLIC PANEL 2020-04-01 06:27:00 Rodrigo Brewster [facility] ([id number]) [facility] CBC WITH DIFF 2020-04-01 06:27:00 Rodrigo Brewster [place] [facility] URINALYSIS 2020-04-01 06:27:00 Rodrigo Brewster [facility] COVID-19 (ID NOW RAPID 2020-04-01 06:27:00 Rodrigo Brewster [facility] TESTING) [facility] LACTIC ACID WHOLE BLOOD 2020-04-01 06:26:00 Rodrigo Brewster [facility] CONSENT/REFUSAL FOR 2020-04-01 05:34:16 Doctor Unassigned, No [facility] DIAGNOSIS AND TREATMENT [facility] XR SHOULDER <2 VW RIGHT 2019-08-18 09:03:52 Kayode Palacios [facility] ASSIGNMENT OF BENEFITS 2019-08-18 08:11:25 Doctor Unassigned, No [facility] Name [facility] Procedure on Heart Karen Epi [facility] Encounters Start End Encounter Admission Attending Care Care Encounter Source Date/Time Date/Time Type Type Clinicians Facility Department ID 2020-12-29 Emergency [facility] [id number] [facility] Emergency [facility] [id number] Univers 20:46:50 [facility] 2020-10-12 2020-10-12 Outpatient AMBREEN_SHAMA [facility] 109 [id number] [place] 12:11:00 12:11:00 KYLE [id number] [facility] 2020-10-12 2020-10-12 Stefan KUO [place] - [id number] [place] 00:00:00 00:00:00 MD Robert: Karen cat [id number] [facility] [place], [facility] Outre [id number] h , Ph. Program ([phone]) 2020-09-12 2020-09-12 Outpatient AMBREEN_FAR [facility] 109 [id number] [place] 05:10:00 05:10:00 HANA [id number] [facility] 2020-09-12 2020-09-12 Ely Mayers [facility] [place] - [id number] M at[place]or 00:00:00 00:00:00 JEFE Pacheco: Karen cat [id number] [place] [facility] 59 [facility] [id number] , Ph. 2020-08-29 2020-08-29 Outpatient AMBREEN_FAR [facility] 109 [place] 04:15:00 04:15:00 HANA [id number] [facility] 2020-08-29 2020-08-29 Long [facility] [place] - [id number] [place]or 00:00:00 00:00:00 Karen Day GAS FURNACE INSTALLER: [id number] Sikh Epi scop [place] 59 [facility] [id number] , Ph. 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 Program ([phone]) 2020-06-27 2020-06-27 Outpatient AMBREEN_FAR [facility] M[facility] 109 [place] 01:05:00 01:05:00 HANA [id number] [facility] 2020 2020 Outpatient AMBREEN_FAR [facility] 109 [place] 04:43:00 04:43:00 HANA [id number] [facility] 2020 2020 Long [facility] [place] - [id number] M at[place]or 00:00:00 00:00:00 Karen Day da GAS FURNACE INSTALLER: [id number] Sikh Epi scop [place] 59 [facility] [place] Program [phone] , Ph. 2020-05-24 2020-05-24 Outpatient AMBREEN_FAR [facility] 109 [place] 02:37:00 02:37:00 HANA [id number] [facility] 2020-05-24 2020-05-24 Outpatient AMBREEN_FAR [facility] 109 [place] 02:37:00 02:37:00 HANA [id number] [facility] 2020-05-24 2020-05-24 Long [facility] [place] - [id number] M at[place]or 00:00:00 00:00:00 Karen Day GAS FURNACE INSTALLER: [id number] Sikh Epi scop [place] 59 [facility] [place] Program [id number] , Ph. 2020-05-21 2020-05-21 Outpatient AMBREEN_FAR [facility] M[facility] 109 [place] 02:03:00 02:03:00 HANA [id number] [facility] 2020-05-04 2020-05-04 Outpatient AMBREEN_FAR [facility] 109 [id number] [place] 12:25:00 12:25:00 HANA [id number] [facility] 2020-05-04 2020-05-04 Outpatient AMBREEN_SHAMA [facility] 109 [id number] [place] 12:25:00 12:25:00 HANA [id number] [facility] 2020-05-04 2020-05-04 Stefan Mayers [facility] [place] - [id number] [place] 00:00:00 00:00:00 MD Robert: Karen cat [id number] [facility] 59 [facility] - [facility] [address] [place] Program [id number] , Ph. 2020-04-19 2020-04-19 Outpatient AMBREEN_SHAMA [facility] 109 87 [place] 02:35:00 02:35:00 HANA [id number] [facility] 2020-04-04 2020-04-04 Emergency [facility] [id number] 16:55:00 18:45:00 Petra Reed [id number] [place] [id number] [place] [address] [id number] 2020-04-04 2020-04-04 Emergency [facility] [id number] Univers 16:55:00 18:45:00 Petra Reed [id number] i ty of [place] [id number] [facility] [id number] [facility] 084 Branch 2020-04-02 2020-04-02 Letter OG Sprague [id number] Univers 00:00:00 00:00:00 (Out) Julieth ELY [id number] it y [facility] [id number] [facility] [id number] [facility] 019 Branch 2020-04-02 2020-04-02 Letter OG [place] [id number] 00:00:00 00:00:00 (Out) Julieth ELY [id number] [facility] [id number] 2020-03-31 2020-04-01 Emergency Rodrigo Brewster [facility] [id number] Univers 23:53:00 05:34:00 [place] Reed [id number] i ty of [place] [id number] [facility] [id number] [facility] [address] [place] [address] 2020-03-31 2020-04-01 Emergency Rodrigo Brewster [facility] [id number] 23:53:00 05:34:00 [place] Reed [id number] [place] [id number] [place] [id number] 2020-03-14 2020-03-14 Outpatient AMBREEN_FAR [facility] 109 [id number] [place] 01:03:00 01:03:00 KYLE [id number] [facility] 2020-03-08 2020-03-08 Outpatient AMBREEN_FAR [facility] 109 [id number] [place] 10:25:00 10:25:00 SARINAA [id number] [facility] 2020-03-07 2020-03-07 Outpatient AMBREEN_FAR [facility] 109 [id number] [place] 05:07:00 05:07:00 HANA [id number] [facility] 2020-03-07 2020-03-07 [facility] [place] - [id number] [place]or 00:00:00 00:00:00 Karen Day da GAS FURNACE INSTALLER: [id number] Sikh Epi scop [place] 59 [facility] - [facility] [address] [place] [facility] Hospital[facility] [place] [place] Program [address] , Ph. 2020-02-29 2020-02-29 Outpatient AMBREEN_FAR [facility] [phone] [place] 05:13:00 05:13:00 KYLE 38316 [facility] 2020-02-29 2020-02-29 Long [facility] [place] - [id number] M at[place]or 00:00:00 00:00:00 Karen Day da GAS FURNACE INSTALLER: 20249 Sikh Epi scop [place] [address] [facility] [address], [facility] [place] Program [address] , Ph. 2020-02-22 2020-02-22 Outpatient AMBREEN_FAR [facility] [phone] [place] 04:29:00 04:29:00 HANA 99777 [facility] 2020-02-22 2020-02-22 Long [facility] [place] - [id number] M at[place]or 00:00:00 00:00:00 Karen Day da GAS FURNACE INSTALLER: 29869 Sikh Epi scop [place] [address] [facility] [address], [facility] [place] Program [address] , Ph. 2020-02-09 2020-02-09 Outpatient AMBREEN_FAR [facility] [phone] [place] 02:35:00 02:35:00 HANA 28930 [facility] 2020-02-08 2020-02-08 Outpatient AMBREEN_FAR [facility] [phone] [place] 05:05:00 05:05:00 HANA 76609 [facility] 2020-02-08 2020-02-08 Long [facility] [place] - [id number] M at[place]or 00:00:00 00:00:00 Karen Day da GAS FURNACE INSTALLER: 29223 Sikh Epi scop [place] [address] [facility] [address], [facility] [place] Program [address] , Ph. 2020-02-05 2020-02-05 DEVON Walker 1.2.840.114 [id number] Univers 00:00:00 00:00:00 [facility] 350.1.13.10 it y of [place] 4.2.7.2.686 Cory as Presley [phone] [place] [address] Branch Office Building 2020-02-05 2020-02-05 Refill [facility] 1.2.840.114 [id number] 00:00:00 00:00:00 [facility] 350.1.13.10 [place] 4.2.7.2.686 [place] [phone] [place] [address] Office Building 2020-02-01 2020-02-01 Outpatient AMBREEN_[facility] 109 879 [place] 05:01:00 05:01:00 HANA 18312 [facility] 2020-02-01 2020-02-01 Ely Mayers [facility] [place] - [id number] M at[place]or 00:00:00 00:00:00 JEFE Pacheco: Karen cat 33196 Sikh Episc op 59 [facility] - [facility] [address], [place] [facility] [place] Program [address] , Ph. 2020-01-31 2020-01-31 Refill [facility] 1.2.840.114 [id number] Univers 00:00:00 00:00:00 [facility] 350.1.13.10 it y of [place] 4.2.7.2.686 Cory as [place] [phone] [address] Office Building 2020-01-31 2020-01-31 Refill [facility] 1.2.840.114 [id number] 00:00:00 00:00:00 [facility] 350.1.13.10 [place] 4.2.7.2.686 [place] [phone] [place] [address] Office Building 2020-01-20 2020-01-20 Outpatient AMBREEN_[facility] 109 879 [place] 02:18:00 02:18:00 HANA 65974 [facility] 2020-01-19 2020-01-19 Refill [facility] 1.2.840.114 [id number] Univers 00:00:00 00:00:00 [facility] 350.1.13.10 it y of [place] 4.2.7.2.686 Cory as [place] [phone] [place] [address] Branch Office Building 2020-01-19 2020-01-19 True Kessler UTL[facility]IS ANGEL 1.2.840.114 [id number] 00:00:00 00:00:00 [facility] 350.1.13.10 [place] 4.2.7.2.686 [place] [phone] [place] [address] Office Building 2020-01-16 2020-01-16 Cecilia Hein [facility] 1.2.840.114 [id number] Univers 00:00:00 00:00:00 Management M [facility] 350.1.13.10 ity of [place]2.7.2.686 [place] [phone] [place] [address] [address] Office Building 2020-01-16 2020-01-16 Cecilia Hein [facility] 1.2.840.114 [id number] 00:00:00 00:00:00 Management M [facility] 350.1.13.10 Clear 4.2.7.2.686 [place] [phone] Medical [facility] Office Building 2020-01-13 2020-01-13 Cecilia Hein [facility] 1.2.840.114 [id number] 00:00:00 00:00:00 Management [facility] 350.1.13.10 Clear 4.2.7.2.686 [place] [phone] Medical [facility] Office Building 2020-01-13 2020-01-13 Cecilia Hein [facility] 1.2.840.114 [id number] [facility] 00:00:00 00:00:00 Management M Health 350.1.13.10 ity [place].2.686 [place] [phone] [place] [address] [address] Office Building 2020-01-11 2020-01-11 Outpatient AMBREEN_[facility] [phone] [place] 03:04:00 03:04:00 KYLE 84797 huyen [facility] [place] 2020-01-11 2020-01-11 Long [facility] [place] - [id number] [place]agor 00:00:00 00:00:00 Karen Day GAS FURNACE INSTALLER: 96669 Sikh Epi scop [address] [facility] [address] [place] Program [address] , Ph. 2020-01-10 2020-01-10 Juan Kessler [facility] 1.2.840.114 [id number] 00:00:00 00:00:00 Management [facility] 350.1.13.10 [place] 4.2.7.2.686 [place] [phone] [place] [address] Office [facility] 2020-01-10 2020-01-10 Juan Kessler [facility] 1.2.840.114 [id number] Univers 00:00:00 00:00:00 Management [facility] 350.1.13.10 ity of [place] 4.2.7.2.686 Cory as [place] [phone] [address] 2020-01-04 2020-01-04 Outpatient AMBREEN_[place] [address] 87 [place] 05:02:00 05:02:00 HANA 01087 [facility] 2020-01-04 2020-01-04 Ely Mayers [facility] [place] - [id number] M atagor 00:00:00 00:00:00 JEFE Pacheco: Karen cat 17080 Sikh Episc op 59 [facility] A, [facility] [place] Program [address] , Ph. 2019-12-29 2019-12-29 Refill [facility] 1.2.840.114 [id number] Univers 00:00:00 00:00:00 [facility] Health 350.1.13.10 it y of [place] 4.2.7.2.686 [place] as [place] [phone] [address] Office [facility] 2019-12-28 2019-12-28 Outpatient AMBREEN_[facility] 109 879 [place] 04:59:00 04:59:00 HANA 01308 [facility] 2019-12-28 2019-12-28 Long [facility] [place] - [id number] M at[place]or 00:00:00 00:00:00 Karen Day GAS FURNACE INSTALLER: 25453 Sikh Epi scop [place] [address] [facility] [address], [facility] [place] Program [address] , Ph. 2019-12-27 2019-12-27 True Kessler [facility] 1.2.840.114 [id number] Univers 00:00:00 00:00:00 Amyn SPECIALTY 350.1.13.10 ity [facility] 4.2.7.2.686 Cory as COLONY [phone] [place] [address] Branch 2019-12-23 2019-12-23 Outpatient AMBREEN_FAR [facility] [phone] [place] 05:19:00 05:19:00 HANA 99691 [facility] 2019-12-23 2019-12-23 [facility] [place] [facility] [id number] [place] 00:00:00 00:00:00 MD Robert: Karen cat [address] [place] Sikh Episc op 59 [facility] [address], [facility] [place] Program [address] , Ph. 2019-12-21 2019-12-21 Outpatient AMBREEN_FAR [facility] [phone] [place] 02:10:00 02:10:00 HANA 84663 [facility] 2019-12-21 2019-12-21 Long [facility] [place] - [id number] M atagor 00:00:00 00:00:00 Karen Day GAS FURNACE INSTALLER: 70117 Sikh Epi scop [place] 59 [facility] A, [facility] [place] Program [address] , Ph. 2019-12-14 2019-12-14 Outpatient AMBREEN_FAR [facility] [phone] [place] 03:55:00 03:55:00 HANA 06596 [facility] 2019-12-14 2019-12-14 Long MSHERMELINDA [place] - [id number] M atagor 00:00:00 00:00:00 Karen Day da GAS FURNACE INSTALLER: 76528 Sikh Epi scop US 59 [facility] A, [facility] [place] Program [address] , Ph. 2019-12-07 2019-12-07 Outpatient AMBREEN_FAR [facility] [phone] [place] 05:18:00 05:18:00 HANA 12043 [facility] 2019-12-07 2019-12-07 Long [facility] [place] - [id number] M at[place]or 00:00:00 00:00:00 Karen Day da GAS FURNACE INSTALLER: 04861 Sikh Epi scop US [address] [facility], [facility] [place] Program [address] , Ph. 2019-11-30 2019-11-30 Outpatient AMBREEN_FAR [facility] 109 879- [place] 05:22:00 05:22:00 HANA 48898 [facility] [place] [facility] 2019-11-30 2019-11-30 Ely Mayers MSHERMELINDA [place] - [id number] atagor 00:00:00 00:00:00 JEFE Pacheco: Karen cat [address] [place] Sikh Episc op 59 [facility], [facility] [place] Program [address] , Ph. 2019-11-23 2019-11-23 Outpatient AMBREEN_FAR [facility] [phone] [place] 05:19:00 05:19:00 HANA 66313 [facility] 2019-11-23 2019-11-23 Long [facility] [place] - [id number] M [place] 00:00:00 00:00:00 Karen Day da GAS FURNACE INSTALLER: 13433 Sikh Epi scop US 59 [facility] A, [facility] [place] Program [address] , Ph. 2019-11-22 2019-11-22 Outpatient AMBREEN_FAR [facility] [phone] [place] 11:01:00 11:01:00 HANA 23590 [facility] 2019-11-16 2019-11-16 Outpatient AMBREEN_FAR [facility] 109 879- [place] 02:26:00 02:26:00 HANA 27312 [facility] 2019-11-16 2019-11-16 Long [facility] [place] - [id number] M at[place] 00:00:00 00:00:00 Karen Day da GAS FURNACE INSTALLER: 17997 Sikh Epi scop US 59 [facility] [place] Program [address] , Ph. 2019-11-02 2019-11-02 Outpatient AMBREEN_FAR [facility] 109 [place] 02:07:00 02:07:00 HANA 54555 [facility] 2019-11-02 2019-11-02 Long [place] [place] - [id number] M [place] 00:00:00 00:00:00 Karen Day da GAS FURNACE INSTALLER: 21770 Sikh Epi scop US 59 [facility] [place] Program [address] , Ph. 2019-10-26 2019-10-26 Outpatient AMBREEN_FAR [facility] 109 9 [place] 02:40:00 02:40:00 HANA 27805 [facility] 2019-10-26 2019-10-26 Long [facility] [place] - [id number] M [place] 00:00:00 00:00:00 Karen Day da GAS FURNACE INSTALLER: 42341 Sikh Epi scop US 59 [facility] [place] Program [address] , Ph. 2019-10-24 2019-10-24 Outpatient AMBREEN_FAR [facility] 109 879 [place] 01:15:00 01:15:00 HANBrenna 50726 [facility] 2019-10-20 2019-10-20 Outpatient AMBREEN_SHAMA [facility] 109 87 [place] 03:07:00 03:07:00 HANBrenna 23958 [facility] 2019-09-22 2019-09-22 True Kessler [facility] 1.2.840.114 [id number] Univers 00:00:00 00:00:00 Amyn SPECIALTY 350.1.13.10 ity of [facility] 4.2.7.2.686 Cory as COLONY [phone] [facility] [address] [place] 2019-08-18 2019-08-18 Emergency [facility] [id number] [id number] Univers 03:26:36 04:39:00 Kayode [place] 350.1.13.10 i ty [facility] 4.2.7.2.686 [place] [phone] [facility] [address] [place] 2019-08-18 2019-08-18 Emergency X [facility] ERT [id number] Univers 03:26:36 04:39:00 KAYODE ity of [facility] 2019-08-18 2019-08-18 Orders Doctor OG 1.2.840.114 [id number] Univers 00:00:00 00:00:00 Only Unassigned, SOLIS 350.1.13.10 ity of [place] [facility] 4.2.7.2.686 Cory as [phone] [facility] [address] 2019-08-13 2019-08-13 True [facility] 1.2.840.114 [id number] Univers 00:00:00 00:00:00 Amyn SPECIALTY 350.1.13.10 ity of [facility] 4.2.7.2.686 Cory as COLONY [phone] [facility] [address] [place] 2019-07-25 2019-07-25 True [facility] 1.2.840.114 [id number] Univers 00:00:00 00:00:00 Amyn SPECIALTY 350.1.13.10 ity of [facility] 4.2.7.2.686 Cory as [place] [phone] [address] 2019-06-29 2019-06-29 True [facility] 1.2.840.114 [id number] Univers 00:00:00 00:00:00 Amyn SPECIALTY 350.1.13.10 ity of [facility] 4.2.7.2.686 Cory as [place] [id number] [address] 2019-05-29 2019-05-[address] [facility] 1.2.840.114 [id number] Univers 00:00:00 00:00:00 Amyn SPECIALTY 350.1.13.10 ity of [facility] 4.2.7.2.686 Cory as [place] [phone] [address] 2018-10-26 2018-10-26 True [facility] 1.2.840.114 [id number] Univers 00:00:00 00:00:00 Amyn SPECIALTY 350.1.13.10 ity of [facility] 4.2.7.2.686 Cory as [place] [phone] [address] Results Test Description Test Time Test Comments Results Result Comments Source Acute hepatitis 2000 panel - Serum 2020-09-13 00:00:00 Test Item Value Reference Range Interpretation Comme nts Hepatitis A virus IgM Ab [Presence] in Serum or Plasma non-r eactive non-reactive by Immunoassay (test code = 03167-1) Hepatitis B virus surface Ag [Presence] in Serum or non-reactive no n-reactive Plasma by Immunoassay (test code = 5196-1) Hepatitis B virus core IgM Ab [Presence] in Serum or non-reactive n on-reactive Plasma by Immunoassay (test code = 89711-4) Hepatitis C virus Ab [Presence] in Serum or Plasma by non-reacti ve non-reactive Immunoassay (test code = 92541-8) Hepatitis C virus Ab Signal/Cutoff in Serum or Plasma 0.02 <1.00 by Immunoassay (test code = 61144-0) [facility] Out[facility] ProgramHIV 1+2 Ab+HIV1 p24 Ag [Presence] in Serum or Plasma by [id number] 00:00:00 Test Item Value Reference Range Interpretation Comments HIV 1+2 Ab+HIV1 p24 Ag non-reactive non-reactive [Presence] in Serum or Plasma by Immunoassay (test code = 48752-8) [facility] 2000 panel - Serum or Itbvwa5569-05-01 00:00:00 Test Item Value Reference Range Interpretation Comments Glucose [Mass/volume] 90 mg/dL 65-99 in Serum or Plasma (test code = 2345-7) Urea nitrogen 12 mg/dL 7-25 [Mass/volume] in Serum or Plasma (test code = 3094-0) Creatinine 0.69 mg/dL 0.50-1.10 [Mass/volume] in Serum or Plasma (test code = 2160-0) Glomerular filtration 123 See_Comment [Auto mated rate/1.73 sq mL/min/1.73m2 message] The M.predicted among system [facility] non-blacks [Volume generated this Rate/Area] in Serum, result Plasma or Blood by transmitt ed Creatinine-based reference r oliva: formula (CKD-EPI) > or = 60. The (test code = 07444-2) refere nce range was not used to interpret this result as normal/abnormal . Glomerular filtration 142 See_Comment [Auto mated rate/1.73 sq mL/min/1.73m2 message] The M.predicted among system [facility] blacks [Volume generated thi s Rate/Area] in Serum, result Plasma or Blood by transmitt ed Creatinine-based reference r oliva: formula (CKD-EPI) > or = 60. The (test code = 78258-2) refere nce range was not used to [...] in Serum or Plasma (test code = 34163-9) Protein [Mass/volume] 7.0 g/dL 6.1-8.1 in Serum or Plasma (test code = 2885-2) Albumin [Mass/volume] 4.4 g/dL 3.6-5.1 in Serum or Plasma (test code = 1751-7) Globulin [Mass/volume] 2.6 g/dL (calc) 1.9-3.7 in Serum by calculation (test code = 67893-6) Albumin/Globulin [Mass 1.7 (calc) 1.0-2.5 Ratio] in [...] Serum or Plasma (test code = 1742-6) [facility] Outreach [facility] W Auto Differential panel - Blood 2020-09-13 [...] = 776-5) Neutrophils [#/volume] in 2473 cells/uL 7004-8419 Blood by Automated count (test code = [...] by Automated count (test code = 706-2) [facility] CampusThyrotropin [Units/volume] in Serum or Plasma by Detection limit <= 0.005 mIU/W9108-12-08 00:00:00 Test Item Value Reference Range Interpretation Comments Thyrotropin [Units/volume] in 2.74 mIU/L Serum or Plasma (test code = 3016-3) [facility] g[facility]xt5290-72-54 00:00:00 Test Item Value Reference Range Interpretation Comments Chlamydia trachomatis rRNA not detected not detected [Presence] in Unspecified specimen by ANSLEY with probe detection (test code = 71355-8) Neisseria gonorrhoeae rRNA not detected not detected [Presence] in Unspecified specimen by ANSLEY with probe detection (test code = 70943-0) comment (test code = comment) [facility] Campuspregnancy test, [id number] 00:00:00 Test Item Value Reference Range Interpretation Comments Choriogonadotropin.beta subunit negative negative ( test) [Presence] in Urine (test code = 2112-1) [facility] CampusReagin Ab [Presence] in Serum by RPR 2020-09-13 00:00:00 Test Item Value Reference Range Interpretation Comments Reagin Ab [Presence] in Serum by non-reactive non-reactive RPR (test code = 76189-0) [facility] CampusCT CHEST PULMONARY ANGIOGRAM 2020-04-01 08:59:58Impression: No CTA [...] versus viral respiratory illness. RL: 460 AFC: 16921 Electronically sig yasmeen by Belkis Perry MD, [...] pulmonary edema versus viral respiratory illness.RL: 460AFC: 41204Xgxxyhgfwndmvq signed by Belkis Perry MD, PhD at 04/01/2020 2:59 [facility]eg[facility] HospitalD-PYTCV3178-73-04 07:22:00 Test Item Value Reference Interpretation Comments Range D-DIMER (test code = See_Comment H [Autom ated [id number]) message] The system which generated this result [...] diagnosis. Lab Interpretation Abnormal (test code = 95716-2) [facility] HospitalMICAMCLE[facility] DARLINGTONHATTIE [id number] 07:13:00 Test Item Value Reference Range Interpretation Comments TROPONIN I (test <0.012 See_Comment [Automated code = 0519387641) message] The system which generated this result [...] ? Lab Interpretation Normal (test code = 89516-7) [facility] HospitalCOVID-[facility] (ID NOW RAPID TESTING)2020-04-01 07:12:00 Test Item Value Reference Range Interpretation Comments SARS-CoV-2 Rapid ID NOW Not Detected Not Detected (test code = 19086-4) SUSANNA (test code = SUSANNA) ID NOW COVID-19 Assay is an isothermal nucleic acid amplification test intended for the qualitative detection of nucleic acid from SARS-CoV-2 viral RNA in nasopharyngeal (PROCESSING ASSOCIATE) specimens. It is used under Emergency Use [...] indicated. Lab Interpretation Normal (test code = 43853-7) [facility]. METABOLIC PANEL (91396)2020-04-01 07:01:00 Test Item Value Reference Range Interpretation Comments NA (test code = 137 mmol/L 135-145 7446405525) K (test code = 3.9 mmol/L 3.5-5 1035369397) CL (test code = 106 mmol/L 98-108 8563548316) CO2 TOTAL (test code = 22 mmol/L 23-31 L 2943254257) AGAP (test code = 2-16 9149212638) BUN (test code = 10 mg/dL 7-23 3168842873) GLUCOSE (test code = 116 mg/dL 70-110 H 1509124500) CREATININE (test code = 0.59 mg/dL 0.5-1.04 3118783813) TOTAL BILI (test code = 0.7 mg/dL 0.1-1.9 4964884877) CALCIUM (test code = 9.1 mg/dL 8.6-10.6 3802688332) T PROTEIN (test code = 7.2 g/dL 6.3-8.2 6074967784) ALBUMIN (test code = 4.1 g/dL 3.5-5 3790557002) ALK PHOS (test code = 106 U/L 34-122 0028071968) ALTv (test code = 15 U/L 5-35 1742-6) AST(SGOT) (test code = 22 U/L 13-40 0217309842) eGFR Calculation mL/min/1.73m2 (Non-) (test code = 4299007453) eGFR Calculation mL/min/1.73m2 () (test code = 8894215044) SUSANNA (test code = SUSANNA) Association of [...] tests). Lab Interpretation Abnormal (test code = 16673-4) [facility] [id number] 07:00:00 Test Item Value Reference Range Interpretation Comments APPEARANCE (test code = Hazy Clear A 0094972323) COLOR (test code = Yellow Yellow 2858051229) PH (test code = 4.8-8.0 4993978583) SP GRAVITY (test code = 1.003-1.030 4769096316) GLU U QUAL (test code = Normal Normal 6927328726) BLOOD (test code = 3+ Negative A 4402896206) KETONES (test code = Negative Negative 4874499945) PROTEIN (test code = Negative Negative 2887-8) UROBILIN (test code = Normal Normal 3072826163) BILIRUBIN (test code = Negative Negative 3284204614) NITRITE (test code = Negative Negative 6041681496) LEUK YVAN (test code = Negative Negative 0853694663) RBC/HPF (test code = See_Comment H [Autom ated message] 9366564301) The system [employer] generated this result transmitted ref erence range: 0 - 3 HP F. The reference range was not used to int erpret this result as normal/abnormal . WBC/HPF (test code = See_Comment [Autom ated message] 8854664151) The system [employer] generated this result transmitted ref erence range: 0 - 5 HP F. The reference range was not used to int erpret this result as normal/abnormal . BACTERIA (test code = Few Negative A 0927199094) SQ EPITH (test code = HPF 2462770865) Lab Interpretation (test Abnormal code = 01173-0) [facility] HospitalCB WITH [id number] 06:49:00 Test Item Value Reference Range Interpretation Comments WBC (test code = See_Comment L [Automated 5390-2) message] The sy stem which generated this result transmitted reference range : 4.30 - 11.10 10*3/?L. The reference range was not used to interpret this result as normal/abnormal . RBC (test code = See_Comment L [Automated 959-8) message] The sy stem which generated this [...] RDW-SD (test code = 41.0 fL 39-49.9 49600-0) RDW-CV (test code = 12.6 % 12-15.5 788-0) PLT (test code = See_Comment L [Automated 777-3) message] The sy stem which generated this result transmitted reference range : 166 - 358 10*3/ ?L. The reference r oliva was not used to interpret this result as normal/abnormal . MPV (test code = 11.9 fL 9.5-12.9 44547-1) NRBC/100 WBC (test See_Comment [Automat ed code = 2116403579) message] The system which generated this result transmitted reference range : 0.0 - 10.0 /100 WBCs. The refer ence range was not u sed to interpret th is result as normal/abnormal . NRBC x10^3 (test code <0.01 See_Comment [Auto mated = 4960674487) message] The s ystem which generated this result transmitted reference range : 10*3/?L. The reference range was not used to interpret this result as normal/abnormal . GRAN MAT (NEUT) % 75.2 % (test code = 770-8) IMM GRAN % (test code 0.20 % = 8347017541) LYMPH % (test code = 13.3 % 736-9) MONO % (test code = 9.1 % 5905-5) EOS % (test code = 2.0 % 713-8) BASO % (test code = 0.2 % 706-2) GRAN MAT x10^3(ANC) 3.04 10*3/uL 1.88-7.09 (test code = 9846516069) IMM GRAN x10^3 (test <0.03 0-0.06 code = 5829214804) LYMPH x10^3 (test code 0.54 10*3/uL 1.32-3.29 L = 731-0) MONO x10^3 (test code 0.37 10*3/uL 0.33-0.92 = 742-7) EOS x10^3 (test code = 0.08 10*3/uL 0.03-0.39 711-2) BASO x10^3 (test code <0.03 0.01-0.07 = 704-7) Lab Interpretation Abnormal (test code = 02514-0) [facility] HospitalPOCT [id number] 06:45:00 Test Item Value Reference Range Interpretation Comments POCT PREG (test code = 1605) negative On board controls acceptable with positive C Line (test code = 3574) POCT PREG LOT # (test code = 3575) [id number] POCT PREG TEST DATE (test 10-30-2021 code = 3576) Lab Interpretation (test code = Normal 44319-8) [facility] HospitalLamoic Acid Whole [id number] 06:35:00 Test Item Value Reference Range Interpretation Comments LACTIC ACID (test code = 1.27 mmol/L 0.5-2.2 8023491194) Lab Interpretation (test code = Normal 66828-9) [facility] HospitalUrinalysis complete W Reflex Culture panel - [id number] 00:00:00 Test Item Value Reference Range Interpretation [...] (test code = 5-10 0-10 epithelial cells) [facility] CampusLipid 1996 panel - Serum or Plasma 2019-12-01 [...] = 1.61 ratio <3.22 risk ratio LDL/HDL) [facility]CBC W Auto Differential panel - Blood 2019-12-01 [...] code = 156 K/uL 130-400 platelet count) [facility]Comprehensive metabolic 2000 panel - Serum or [id number] 00:00:00 Test Item Value Reference Range Interpretation [...] (test code = ALT) 26 U/L 5-40 [facility] CampusThyrotropin [Units/volume] in Serum or [id number] 00:00:00 Test Item Value Reference Range Interpretation Comments TSH, third generation (test code 1.810 uIU/mL 0.400-4.100 = TSH, third generation) [facility] CampusReagin Ab [Presence] in Serum by RPR 2019-12-01 00:00:00 Test Item Value Reference Range Interpretation Comments RPR result (test code = RPR non-reactive non-reactive result) RPR titer (test code = RPR not indic. not indic. titer) [facility] CampusPT and aPTT panel - Platelet poor plasma by Coagulation [id number] 00:00:00 Test Item Value Reference Range Interpretation Comments prothrombin time (PT) (test code 13.9 seconds 12.5-14.7 = prothrombin time (PT)) INR (test code = INR) 1.0 see below PTT (test code = PTT) 30.1 seconds 25.2-40.0 [facility] CampusHIV 1+2 Ab [Presence] in Serum or Plasma by [id number] 00:00:00 Test Item Value Reference Range Interpretation Comments HIV 1/2 4TH gen, rflx conf (test non-reactive non-reactive code = HIV 1/2 4TH gen, rflx conf) [facility] CampusAcute hepatitis 2000 panel - Serum 2019-12-01 00:00:00 [...] (note) (test code = interpretation hepatitis C:) [facility] CampusChlamydia trachomatis+Neisseria gonorrhoeae DNA [Presence] in Urine by ANSLEY with probe [id number] 00:00:00 Test Item Value Reference Range Interpretation Comments gonorrhea, tma (test code = negative negative gonorrhea, tma) chlamydia, tma (test code = negative negative chlamydia, tma) [facility] CampusUrinalysis complete W Reflex Culture panel - [id number] 00:00:00 Test Item Value Reference Range Interpretation [...] (test code = 5-10 0-10 epithelial cells) [facility] CampusLipid 1996 panel - Serum or Plasma 2019-12-01 [...] = 1.61 ratio <3.22 risk ratio LDL/HDL) [facility] CampusCBC W Auto Differential panel - Blood 2019-12-01 [...] code = 156 K/uL 130-400 platelet count) [facility] CampusComprehensive metabolic 2000 panel - Serum or [id number] 00:00:00 Test Item Value Reference Range Interpretation [...] (test code = ALT) 26 U/L 5-40 [facility] CampusThyrotropin [Units/volume] in Serum or [id number] 00:00:00 Test Item Value Reference Range Interpretation Comments TSH, third generation (test code 1.810 uIU/mL 0.400-4.100 = TSH, third generation) [facility] CampusReagin Ab [Presence] in Serum by RPR 2019-12-01 00:00:00 Test Item Value Reference Range Interpretation Comments RPR result (test code = RPR non-reactive non-reactive result) RPR titer (test code = RPR not indic. not indic. titer) [facility] CampusPT and aPTT panel - Platelet poor plasma by Coagulation [id number] 00:00:00 Test Item Value Reference Range Interpretation Comments prothrombin time (PT) (test code 13.9 seconds 12.5-14.7 = prothrombin time (PT)) INR (test code = INR) 1.0 see below PTT (test code = PTT) 30.1 seconds 25.2-40.0 [facility] CampusHIV 1+2 Ab [Presence] in Serum or Plasma by [id number] 00:00:00 Test Item Value Reference Range Interpretation Comments HIV 1/2 4TH gen, rflx conf (test non-reactive non-reactive code = HIV 1/2 4TH gen, rflx conf) [facility] CampusAcute hepatitis 2000 panel - Serum 2019-12-01 00:00:00 [...] (note) (test code = interpretation hepatitis C:) [facility] CampusChlamydia trachomatis+Neisseria gonorrhoeae DNA [Presence] in Urine by ANSLEY with probe [id number] 00:00:00 Test Item Value Reference Range Interpretation Comments gonorrhea, tma (test code = negative negative gonorrhea, tma) chlamydia, tma (test code = negative negative chlamydia, tma) [facility] CampusUrinalysis complete W Reflex Culture panel - [id number] 00:00:00 Test Item Value Reference Range Interpretation [...] (test code = 5-10 0-10 epithelial cells) [facility] CampusLipid 1996 panel - Serum or Plasma 2019-12-01 [...] = 1.61 ratio <3.22 risk ratio LDL/HDL) [facility] CampusCB W Auto Differential panel - Blood 2019-12-01 [...] code = 156 K/uL 130-400 platelet count) [facility] CampusComprehensive metabolic 2000 panel - Serum or [id number] 00:00:00 Test Item Value Reference Range Interpretation [...] (test code = ALT) 26 U/L 5-40 [facility] CampusThyrotropin [Units/volume] in Serum or [id number] 00:00:00 Test Item Value Reference Range Interpretation Comments TSH, third generation (test code 1.810 uIU/mL 0.400-4.100 = TSH, third generation) [facility] CampusReagin Ab [Presence] in Serum by RPR 2019-12-01 00:00:00 Test Item Value Reference Range Interpretation Comments RPR result (test code = RPR non-reactive non-reactive result) RPR titer (test code = RPR not indic. not indic. titer) [facility] CampusPT and aPTT panel - Platelet poor plasma by Coagulation [id number] 00:00:00 Test Item Value Reference Range Interpretation Comments prothrombin time (PT) (test code 13.9 seconds 12.5-14.7 = prothrombin time (PT)) INR (test code = INR) 1.0 see below PTT (test code = PTT) 30.1 seconds 25.2-40.0 [facility] CampusHIV 1+2 Ab [Presence] in Serum or Plasma by [id number] 00:00:00 Test Item Value Reference Range Interpretation Comments HIV 1/2 4TH gen, rflx conf (test non-reactive non-reactive code = HIV 1/2 4TH gen, rflx conf) [facility] CampusAcute hepatitis 2000 panel - Serum 2019-12-01 00:00:00 [...] (note) (test code = interpretation hepatitis C:) [facility] CampusChlamydia trachomatis+Neisseria gonorrhoeae DNA [Presence] in Urine by ANSLEY with probe [id number] 00:00:00 Test Item Value Reference Range Interpretation Comments gonorrhea, tma (test code = negative negative gonorrhea, tma) chlamydia, tma (test code = negative negative chlamydia, tma) [facility] CampusUrinalysis complete W Reflex Culture panel - [id number] 00:00:00 Test Item Value Reference Range Interpretation [...] (test code = 5-10 0-10 epithelial cells) [facility] CampusLipid 1996 panel - Serum or Plasma 2019-12-01 [...] = 1.61 ratio <3.22 risk ratio LDL/HDL) [facility] CampusCBC W Auto Differential panel - Blood 2019-12-01 [...] code = 156 K/uL 130-400 platelet count) [facility] ProgramCom[facility] metabolic 2000 panel - Serum or [id number] 00:00:00 Test Item Value Reference Range Interpretation [...] (test code = ALT) 26 U/L 5-40 [facility] CampusThyrotropin [Units/volume] in Serum or [id number] 00:00:00 Test Item Value Reference Range Interpretation Comments TSH, third generation (test code 1.810 uIU/mL 0.400-4.100 = TSH, third generation) [facility] CampusReagin Ab [Presence] in Serum by RPR 2019-12-01 00:00:00 Test Item Value Reference Range Interpretation Comments RPR result (test code = RPR non-reactive non-reactive result) RPR titer (test code = RPR not indic. not indic. titer) [facility] CampusPT and aPTT panel - Platelet poor plasma by Coagulation [id number] 00:00:00 Test Item Value Reference Range Interpretation Comments prothrombin time (PT) (test code 13.9 seconds 12.5-14.7 = prothrombin time (PT)) INR (test code = INR) 1.0 see below PTT (test code = PTT) 30.1 seconds 25.2-40.0 [facility] CampusHIV 1+2 Ab [Presence] in Serum or Plasma by [id number] 00:00:00 Test Item Value Reference Range Interpretation Comments HIV 1/2 4TH gen, rflx conf (test non-reactive non-reactive code = HIV 1/2 4TH gen, rflx conf) [facility] CampusAcute hepatitis 2000 panel - Serum 2019-12-01 00:00:00 [...] (note) (test code = interpretation hepatitis C:) [facility] CampusChlamydia trachomatis+Neisseria gonorrhoeae DNA [Presence] in Urine by ANSLEY with probe [id number] 00:00:00 Test Item Value Reference Range Interpretation Comments gonorrhea, tma (test code = negative negative gonorrhea, tma) chlamydia, tma (test code = negative negative chlamydia, tma) [facility] CampusUrinalysis complete W Reflex Culture panel - [id number] 00:00:00 Test Item Value Reference Range Interpretation [...] (test code = 5-10 0-10 epithelial cells) [facility] CampusLipid 1996 panel - Serum or Plasma 2019-12-01 [...] = 1.61 ratio <3.22 risk ratio LDL/HDL) [facility] CampusCBC W Auto Differential panel - Blood 2019-12-01 [...] code = 156 K/uL 130-400 platelet count) [facility] CampusComprehensive metabolic 2000 panel - Serum or [id number] 00:00:00 Test Item Value Reference Range Interpretation [...] (test code = ALT) 26 U/L 5-40 [facility] CampusThyrotropin [Units/volume] in Serum or [id number] 00:00:00 Test Item Value Reference Range Interpretation Comments TSH, third generation (test code 1.810 uIU/mL 0.400-4.100 = TSH, third generation) [facility] CampusReagin Ab [Presence] in Serum by RPR 2019-12-01 00:00:00 Test Item Value Reference Range Interpretation Comments RPR result (test code = RPR non-reactive non-reactive result) RPR titer (test code = RPR not indic. not indic. titer) [facility] CampusPT and aPTT panel - Platelet poor plasma by Coagulation [id number] 00:00:00 Test Item Value Reference Range Interpretation Comments prothrombin time (PT) (test code 13.9 seconds 12.5-14.7 = prothrombin time (PT)) INR (test code = INR) 1.0 see below PTT (test code = PTT) 30.1 seconds 25.2-40.0 [facility] CampusHIV 1+2 Ab [Presence] in Serum or Plasma by [id number] 00:00:00 Test Item Value Reference Range Interpretation Comments HIV 1/2 4TH gen, rflx conf (test non-reactive non-reactive code = HIV 1/2 4TH gen, rflx conf) [facility] CampusAcute hepatitis 2000 panel - Serum 2019-12-01 00:00:00 [...] (note) (test code = interpretation hepatitis C:) [facility] CampusChlamydia trachomatis+Neisseria gonorrhoeae DNA [Presence] in Urine by ANSLEY with probe [id number] 00:00:00 Test Item Value Reference Range Interpretation Comments gonorrhea, tma (test code = negative negative gonorrhea, tma) chlamydia, tma (test code = negative negative chlamydia, tma) [facility] CampusUrinalysis complete W Reflex Culture panel - [id number] 00:00:00 Test Item Value Reference Range Interpretation [...] tomated message] = urobilinogen) The system [facility] generated this result transmitted ref erence range: [...] (test 5-10 0-10 code = epithelial cells) [facility] CampusLipid 1996 panel - Serum or Plasma 2019-12-01 [...] = 1.61 ratio <3.22 risk ratio LDL/HDL) [facility] CampusCBC W Auto Differential panel - Blood 2019-12-01 [...] code = 156 K/uL 130-400 platelet count) [facility] CampusComprehensive metabolic 2000 panel - Serum or [id number] 00:00:00 Test Item Value Reference Range Interpretation [...] (test code = 26 U/L 5-40 ALT) [facility] CampusThyrotropin [Units/volume] in Serum or [id number] 00:00:00 Test Item Value Reference Range Interpretation Comments TSH, third generation (test code 1.810 uIU/mL 0.400-4.100 = TSH, third generation) [facility] CampusReagin Ab [Presence] in Serum by RPR 2019-12-01 00:00:00 Test Item Value Reference Range Interpretation Comments RPR result (test code = RPR non-reactive non-reactive result) RPR titer (test code = RPR not indic. not indic. titer) [facility] CampusPT and aPTT panel - Platelet poor plasma by Coagulation [id number] 00:00:00 Test Item Value Reference Range Interpretation Comments prothrombin time (PT) (test code 13.9 seconds 12.5-14.7 = prothrombin time (PT)) INR (test code = INR) 1.0 see below PTT (test code = PTT) 30.1 seconds 25.2-40.0 [facility] CampusHIV 1+2 Ab [Presence] in Serum or Plasma by [id number] 00:00:00 Test Item Value Reference Range Interpretation Comments HIV 1/2 4TH gen, rflx conf (test non-reactive non-reactive code = HIV 1/2 4TH gen, rflx conf) [facility] CampusAcute hepatitis 2000 panel - Serum 2019-12-01 00:00:00 [...] (note) (test code = interpretation hepatitis C:) [facility] CampusChlamydia trachomatis+Neisseria gonorrhoeae DNA [Presence] in Urine by ANSLEY with probe [id number] 00:00:00 Test Item Value Reference Range Interpretation Comments gonorrhea, tma (test code = negative negative gonorrhea, tma) chlamydia, tma (test code = negative negative chlamydia, tma) [facility] Programpregnancy test, [id number] 11:52:00 Test Item Value Reference Range Interpretation Comments HCG (test code = HCG) negative [facility] Programpregnancy test, [id number] 11:52:00 Test Item Value Reference Range Interpretation Comments HCG (test code = HCG) negative [facility]amp[facility], [id number] 11:52:00 Test Item Value Reference Range Interpretation Comments HCG (test code = HCG) negative [facility] Programpregnancy test, [id number] 11:52:00 Test Item Value Reference Range Interpretation Comments HCG (test code = HCG) negative [facility] Programpregnancy test, [id number] 11:52:00 Test Item Value Reference Range Interpretation Comments HCG (test code = HCG) negative [facility] Programpregnancy test, [id number] 11:52:00 Test Item Value Reference Range Interpretation Comments HCG (test code = HCG) negative [facility] Programpregnancy test, [id number] 11:52:00 Test Item Value Reference Range Interpretation Comments HCG (test code = HCG) [facility]
[2021-03-04] MEDS ORDERED: ACETAMINOPHEN 325 MG TABLET ONE (21:52)
[2021-03-04] MEDS ORDERED: IBUPROFEN 400 MG TAB ONE (21:52)
--- NOTE | 2021-03-04 22:09 | RAD REPORT ---
EXAM DESCRIPTION: RAD - Tib Fib Left - 03/04/2021 9:57 pm CLINICAL HISTORY: fall;Pain COMPARISON: No comparisons FINDINGS: No fracture or dislocation is seen.
--- NOTE | 2021-03-04 22:11 | EDPHYS ---
Physician Documentation [facility] Name: Taniya Hudson Age: 25 yrs Sex: Female : 1995 Arrival Date: 03/04/2021 Time: 18:21 Bed 11 Private MD: ED Physician Sudheer Diaz HPI: 03/04 21:23 This 25 yrs old Female presents to ER via Ambulatory with complaints of Leg Pain. pkl 21:23 The patient presents with an injury, pain, that is acute. The complaints affect the pkl left calf. Context: resulted from the patient falling, landed on her buttocks. Onset: The symptoms/episode began/occurred today. 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 - Social history:: Smoking status: Patient denies any tobacco usage or history of. ROS: 21:23 Eyes: Negative for injury, pain, redness, and discharge, ENT: Negative for injury, pkl pain, and discharge, Neck: Negative for injury, pain, and swelling, Cardiovascular: Negative for chest pain, palpitations, and edema, Respiratory: Negative for shortness of breath, cough, wheezing, and pleuritic chest pain, Abdomen/GI: Negative for abdominal pain, nausea, vomiting, diarrhea, and constipation, Back: Negative for injury and pain, : Negative for injury, bleeding, discharge, and swelling, Skin: Negative for injury, rash, and discoloration, Neuro: Negative for headache, weakness, numbness, tingling, and seizure. 21:23 MS/extremity: Positive for pain, of the left calf. Exam: 21:23 Head/Face: Normocephalic, atraumatic. Eyes: Pupils equal round and reactive to light, pkl extra-ocular motions intact. Lids and lashes normal. Conjunctiva and sclera are non-icteric and not injected. Cornea within normal limits. Periorbital areas with no swelling, redness, or edema. ENT: Nares patent. No nasal discharge, no septal abnormalities noted. Tympanic membranes are normal and external auditory canals are clear. Oropharynx with no redness, swelling, or masses, exudates, or evidence of obstruction, uvula midline. Mucous membranes moist. Neck: Trachea midline, no thyromegaly or masses palpated, and no cervical lymphadenopathy. Supple, full range of motion without nuchal rigidity, or vertebral point tenderness. No Meningismus. Chest/axilla: Normal chest wall appearance and motion. Nontender with no deformity. No lesions are appreciated. Cardiovascular: Regular rate and rhythm with a normal S1 and S2. No gallops, murmurs, or rubs. Normal PMI, no JVD. No pulse deficits. Respiratory: Lungs have equal breath sounds bilaterally, clear to auscultation and percussion. No rales, rhonchi or wheezes noted. No increased work of breathing, no retractions or nasal flaring. Abdomen/GI: Soft, non-tender, with normal bowel sounds. No distension or tympany. No guarding or rebound. No evidence of tenderness throughout. Back: No spinal tenderness. No costovertebral tenderness. Full range of motion. Skin: Warm, dry with normal turgor. Normal color with no rashes, no lesions, and no evidence of cellulitis. Neuro: Awake and alert, GCS 15, oriented to person, place, time, and situation. Cranial nerves II-XII grossly intact. Motor strength 5/5 in all extremities. Sensory grossly intact. Cerebellar exam normal. Normal gait. 21:23 Musculoskeletal/extremity: Extremities: grossly normal except: noted in the left calf: contusion, pain. Vital Signs: 20:08 BP 127 / 74; Pulse 74; Resp 16; Temp 98.8; Pulse Ox 95% on R/A; iw 22:00 BP 133 / 74; Pulse 85; Resp 18 S; Pulse Ox 94% on R/A; al4 MDM: 21:06 Patient medically screened. pkl 22:07 Data reviewed: vital signs, nurses notes, radiologic studies, plain films. ED course: pkl Discussed imaging result with patient. Advised to follow up with her PCP in 1 to 2 days. Patient understood instructions. 03/04 21:18 Order name: Tib Fib Left XRAY; Complete Time: 22:12 pkl Administered Medications: 21:55 Drug: Tylenol 650 mg Route: PO; al4 22:20 Follow up: Response: No adverse reaction al4 21:55 Drug: Motrin (ibuprofen) 400 mg Route: PO; al4 22:20 Follow up: Response: No adverse reaction al4 Disposition Summary: 03/04/21 22:10 Discharge Ordered Location: Home pkl Problem: new pkl Symptoms: have improved pkl Condition: Stable pkl Diagnosis - Contusion left leg. S/P Fall pkl Followup: pkl - With: Private Physician - When: 1 - 2 days - Reason: Re-evaluation by your physician Discharge Instructions: - Discharge Summary Sheet pkl Forms: - Work release form pkl - Medication Reconciliation Form pkl - Thank You Letter pkl - Antibiotic Education pkl - Prescription Opioid Use pkl Signatures: Dispatcher [employer] Sudheer Hernandez MD MD pkl Sarah Colon RN RN iw Ledbetter, Alexis al4
--- NOTE | 2021-03-04 22:11 | ER ---
Nurse's Notes [facility] Name: Taniya Hudson Age: 25 yrs Sex: Female : 1995 Arrival Date: 03/04/2021 Time: 18:21 Bed 11 Private MD: Diagnosis: Contusion left leg. S/P Fall Presentation: 03/04 20:08 Chief complaint: Patient states: was at work tripped over a tray and fell. could not iw put weight on her left leg, has pain around her calf and ankle area , feels like she pulled a muscle. Coronavirus screen: At this time, the client does not indicate any symptoms associated with coronavirus-19. Ebola Screen: Patient negative for fever greater than or equal to 101.5 degrees Fahrenheit, and additional compatible Ebola Virus Disease symptoms Patient denies exposure to infectious person. Patient denies travel to an Ebola-affected area in the 21 days before illness onset. No symptoms or risks identified at this time. Initial Sepsis Screen: Does the patient meet any 2 criteria? No. Patient's initial sepsis screen is negative. Does the patient have a suspected source of infection? No. Patient's initial sepsis screen is negative. Risk Assessment: Do you want to hurt yourself or someone else? Patient reports no desire to harm self or others. Onset of symptoms was March 04, 2021. 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 - Social history:: Smoking status: Patient denies any tobacco usage or history of. Screenin:03 Abuse screen: Denies threats or abuse. Nutritional screening: No deficits noted. al4 Tuberculosis screening: No symptoms or risk factors identified. Fall Risk Fall in past 12 months (25 points). No IV (0 pts). Ambulatory Aid- None/Bed Rest/Nurse Assist (0 pts). Gait- Normal/Bed Rest/Wheelchair (0 pts) Mental Status- Oriented to own ability (0 pts). Assessment: 22:01 General: Appears in no apparent distress. comfortable, Behavior is calm, cooperative, al4 Reports patient tripped and fell at work. patient is complaining of pain 8/10 in her L calf to her ankle. Pain: Complains of pain in left leg Pain currently is 8 out of 10 on a pain scale. Aggravated by weight bearing. Neuro: Level of Consciousness is awake, alert, obeys commands, Oriented to person, place, time, situation. Cardiovascular: Heart tones present Capillary refill < 3 seconds Patient's skin is warm and dry. Respiratory: Airway is patent Respiratory effort is even, unlabored, Respiratory pattern is regular, symmetrical, Breath sounds are clear bilaterally. GI: No signs and/or symptoms were reported involving the gastrointestinal system. : No signs and/or symptoms were reported regarding the genitourinary system. EENT: No signs and/or symptoms were reported regarding the EENT system. Derm: No signs and/or symptoms reported regarding the dermatologic system. Musculoskeletal: Range of motion: intact in all extremities, Reports pain in left calf, left ankle. 22:21 Reassessment: No changes from previously documented assessment. Patient and/or family al4 updated on plan of care and expected duration. Pain level reassessed. Patient is alert, oriented x 3, equal unlabored respirations, skin warm/dry/pink. Vital Signs: 20:08 BP 127 / 74; Pulse 74; Resp 16; Temp 98.8; Pulse Ox 95% on R/A; iw 22:00 BP 133 / 74; Pulse 85; Resp 18 S; Pulse Ox 94% on R/A; al4 ED Course: 18:21 Patient arrived in ED. as 18:22 Jake Jon DO is Private Physician. as 20:09 Triage completed. iw 20:11 Arm band placed on. iw 21:06 Sudheer Diaz MD is Attending Physician. pkl 21:49 Yoan Quiroz is Primary Nurse. al4 21:57 Tib Fib Left XRAY In Process Unspecified. EDMS 22:03 Patient has correct armband on for positive identification. Placed in gown. Bed in low al4 position. Call light in reach. Side rails up X 1. Pulse ox on. NIBP on. Door closed. Noise minimized. 22:20 No provider procedures requiring assistance completed. Patient did not have IV access al4 during this emergency room visit. Administered Medications: 21:55 Drug: Tylenol 650 mg Route: PO; al4 22:20 Follow up: Response: No adverse reaction al4 21:55 Drug: Motrin (ibuprofen) 400 mg Route: PO; al4 22:20 Follow up: Response: No adverse reaction al4 Outcome: 22:10 Discharge ordered by . martine 22:20 Discharged to home ambulatory. al4 22:20 Condition: stable 22:20 Discharge instructions given to patient, Instructed on discharge instructions, follow up and referral plans. medication usage, Demonstrated understanding of instructions, follow-up care, medications. 22:21 Patient left the ED. al4 Signatures: Dispatcher [employer] EDMS Sudheer Diaz MD MD pkl Martinez, Amelia as Williams, Irene, RN RN Yoan Sanders al4 Corrections: (The following items were deleted from the chart) 20:11 20:08 Chief complaint: Patient states: was at work tripped over a tray and fell. could iw not put weight on her left leg, has pain around her calf and ankle area iw
[2021-03-04 22:27] VITALS: TEMP 98.8
[2021-03-04 22:28] VITALS: BP 133/74; O2SAT 94
== END 2021-03-04 22:21 | disposition home or self-care (01) ==
LOC: ER 18:09
DX: S80.12XA Contusion of left lower leg, initial encounter (principal); W19.XXXA Unspecified fall, initial encounter; Z95.818 Presence of other cardiac implants and grafts
CPT/HCPCS: 99283

== ENCOUNTER 2021-08-05 14:11 | Emergency (ER) | payer OTHER, SELFPAY ==
--- OUTSIDE RECORDS SUMMARY | 2021-08-05 14:21 | XMS REPORT | Continuity of Care Document ---
:1995 Author Organization [facility] t Address 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 9- ICD10 ity of 00:00: Diagnosis 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 Branch Tobacco use and 2020-04-04 2020-04-04 Never used Universit y of exposure 00:00:00 00:00:00 [facility] Alcohol intake 2020-04-04 2020-04-04 Current University of 00:00:00 00:00:00 non-drinker of [facility] alcohol Branch (finding) Smoking Status Start Date Stop Date Source Never smoker [facility] Medications Ordered Filled Start Stop Current Ordering [...] Branch injection 0200, 100 mL Routine ketorolac 2020- No 30mg 30 mg, Unive rs (TORADOL) 04-01 Slow IV ity of injection 08:00: 06:58 Push, [place] 30 mg 00 :00 ONCE, 1 Medical dose, [place] Branch 04/01/20 at 0200, ESTELLE
Fa culty member approving Restricted medication : Rodrigo BREWSTER acetaminoph 2020- No 1000mg 1,000 mg, Univers en 04-01 Oral, ity of (TYLENOL) 06:22: 06:27 ONCE, 1 [place] tablet 00 :00 dose, [facility] 1,000 mg 04/01/20 at [facility] h 0030, ESTELLE levoFLOXaci Yes [id number] 500mg Take 1 Univers n 04-01 tablet by ity of (LEVAQUIN) 00:00: mouth [place] 500 mg 00 every 24 Medical tablet (twenty-fo Branch ur) hours. levoFLOXaci Yes [id number] 500mg Take 1 Univers n 04-01 tablet by ity of (LEVAQUIN) 00:00: mouth [place] 500 mg 00 every 24 Medical tablet (twentyfo Branch ur) hours. levoFLOXaci Yes [id number] 500mg Take 1 Univers n 1-31 tablet by ity of (LEVAQUIN) 00:00: mouth [place] 500 mg 00 every 24 Medical tablet (twenty-fo [place] ur) hours. enalapril 2020- Yes TAKE 1 Univer s 2.5 mg 1-02 TABLET BY ity of tablet 00:00: MOUTH ONCE [place] 00 DAILY IN [facility] MORNING AND 2 TABLETS IN THE EVENING enalapril 2019- Yes TAKE 1 Univer s 2.5 mg 1-02 TABLET BY ity of tablet 00:00: MOUTH ONCE [place] 00 DAILY IN [facility] MORNING AND 2 TABLETS IN THE EVENING enalapril 2019- Yes TAKE 1 Univer s 2.5 mg 1-02 TABLET BY ity of tablet 00:00: MOUTH ONCE [place] 00 DAILY IN [facility] MORNING AND 2 TABLETS IN THE EVENING enalapril 2019- Yes TAKE 1 Univer s 2.5 mg 1-02 TABLET BY ity of tablet 00:00: MOUTH ONCE [place] 00 DAILY IN [facility] MORNING AND 2 TABLETS IN THE EVENING enalapril 2019- Yes TAKE 1 Univer s 2.5 mg 1-02 TABLET BY ity of tablet 00:00: MOUTH ONCE [place] 00 DAILY IN [facility] MORNING AND 2 TABLETS IN THE EVENING enalapril 2019- Yes TAKE 1 Univer s 2.5 mg 1-02 TABLET BY ity of tablet 00:00: MOUTH ONCE [place] 00 DAILY IN [facility] MORNING AND 2 TABLETS IN THE EVENING enalapril 2019- Yes TAKE 1 Univer s 2.5 mg 1-02 TABLET BY ity of tablet 00:00: MOUTH ONCE [place] 00 DAILY IN [facility] MORNING AND 2 TABLETS IN THE EVENING enalapril 2019- Yes TAKE 1 Univer s 2.5 mg 1-02 TABLET BY ity of tablet 00:00: MOUTH ONCE [place] 00 DAILY IN [facility] MORNING AND 2 TABLETS IN THE EVENING enalapril 2019- Yes TAKE 1 Univer s 2.5 mg 1-02 TABLET BY ity of tablet 00:00: MOUTH ONCE [place] 00 DAILY IN [facility] MORNING AND 2 TABLETS IN THE EVENING enalapril 2020- Yes TAKE 1 Univer s 2.5 mg 1-02 TABLET BY ity of tablet 00:00: MOUTH ONCE [place] 00 DAILY IN [facility] MORNING AND 2 TABLETS IN THE EVENING enalapril 2020-1 Yes TAKE 1 Univer s 2.5 mg 1-02 TABLET BY ity of tablet 00:00: MOUTH ONCE [place] 00 DAILY IN [facility] [place] MORNING AND 2 TABLETS IN THE EVENING ENALAPRIL 2020-0 Yes TAKE 1 Univer s 2.5 mg 7-24 TABLET BY ity of tablet 00:00: MOUTH ONCE [place] 00 DAILY IN [facility] [place] MORNING AND 2 TABLETS IN THE EVENING ENALAPRIL 2020-0 Yes TAKE 1 Univer s 2.5 mg 7-24 TABLET BY ity of tablet 00:00: MOUTH ONCE [place] 00 DAILY IN [facility] [place] MORNING AND 2 TABLETS IN THE EVENING ENALAPRIL 2020-0 2020- No TAKE 1 Unive rs 2.5 mg 7-24 11-02 TABLET BY ity of tablet 00:00: 00:00 M[place]TH [place]CE [place] [facility] MORNING AND 2 TABLETS IN THE EVENING aspirin 2020-0 Yes 81mg Take 81 mg Univ ers (BABY 6-18 by mouth ity of ASPIRIN) 81 08:22: [place]. [place] mg chewable 29 Medical tablet Branch ACETAMINOPH 2020-0 Yes Take by Un ibrahima EN (TYLENOL 6-18 mouth. ity of ORAL) 08:22: [place] [address] Medical Branch DM/PSEUDOEP 2020-0 Yes Take by Un ibrahima HED/ACETAMI 6-18 mouth. ity of NOPHEN 08:22: [place] ([place] [address] Medical DAYQUIL Branch ORAL) IBUPROFEN 2020-0 Yes Take by Univ ers ORAL 6-18 mouth. ity of 08:22: [place] [address] Medical Branch aspirin 2020-0 Yes 81mg Take 81 mg Univ ers (BABY 6-18 by mouth ity of ASPIRIN) 81 08:22: daily. [place] mg chewable 29 Medical tablet Branch ACETAMINOPH 2020-0 Yes Take by Un ibrahima EN (TYLENOL 6-18 mouth. ity of ORAL) 08:22: [place] [address] Medical Branch DM/PSEUDOEP 2020-0 Yes Take by Un ibrahima HED/ACETAMI 6-18 mouth. ity of NOPHEN 08:22: [place] ([place] [address] Medical DAYQUIL Branch ORAL) IBUPROFEN 2020-0 Yes Take by Univ ers ORAL 6-18 mouth. ity of 08:22: [place] [address] Medical Branch aspirin 2020-0 Yes 81mg Take 81 mg Univ ers (BABY 6-18 by mouth ity of ASPIRIN) 81 08:22: daily. [place] mg chewable 29 Medical tablet Branch ACETAMINOPH 2020-0 Yes Take by Un ibrahima EN (TYLENOL 6-18 mouth. ity of ORAL) 08:22: [place] [address] Medical Branch DM/PSEUDOEP 2020-0 Yes Take by Un ibrahima HED/ACETAMI 6-18 mouth. ity of NOPHEN 08:22: [place] ([place] [address] Medical DAYQUIL Branch ORAL) IBUPROFEN 2020-0 Yes Take by Univ ers ORAL 6-18 mouth. ity of 08:22: [place] [address] Medical Branch aspirin 2020-0 Yes 81mg Take 81 mg Univ ers (BABY 6-18 by mouth ity of ASPIRIN) 81 08:22: daily. [place] mg chewable 29 Medical tablet Branch ACETAMINOPH 2020-0 Yes Take by Un ibrahima EN (TYLENOL 6-18 mouth. ity of ORAL) 08:22: [place] [address] Medical Branch DM/PSEUDOEP 2020-0 Yes Take by Un ibrahima HED/ACETAMI 6-18 mouth. ity of NOPHEN 08:22: [place] ([place] [address] Medical DAYQUIL Branch ORAL) IBUPROFEN 2020-0 Yes Take by Univ ers ORAL 6-18 mouth. ity of 08:22: [place] [address] Medical Branch aspirin 2020-0 Yes 81mg Take 81 mg Univ ers (BABY 6-18 by mouth ity of ASPIRIN) 81 08:22: daily. [place] mg chewable 29 Medical tablet Branch ACETAMINOPH 2020-0 Yes Take by Un ibrahima EN (TYLENOL 6-18 mouth. ity of ORAL) 08:22: [place] [address] Medical Branch DM/PSEUDOEP 2020-0 Yes Take by Un ibrahima HED/ACETAMI 6-18 mouth. ity of NOPHEN 08:22: [place] ([place] [address] Medical DAYQUIL Branch ORAL) IBUPROFEN 2020-0 Yes Take by Univ ers ORAL 6-18 mouth. ity of 08:22: [place] [address] Medical Branch aspirin 2020-0 Yes 81mg Take 81 mg Univ ers (BABY 6-18 by mouth ity of ASPIRIN) 81 08:22: daily. [place] mg chewable 29 Medical tablet Branch ACETAMINOPH 2020-0 Yes Take by Un ibrahima EN (TYLENOL 6-18 mouth. ity of ORAL) 08:22: [place] [address] Medical Branch DM/PSEUDOEP 2020-0 Yes Take by Un ibrahima HED/ACETAMI 6-18 mouth. ity of NOPHEN 08:22: [place] ([place] [address] Medical DAYQUIL Branch ORAL) IBUPROFEN 2020-0 Yes Take by Univ ers ORAL 6-18 mouth. ity of 08:22: [place] [address] Medical Branch aspirin 2020-0 Yes 81mg Take 81 mg Univ ers (BABY 6-18 by mouth ity of ASPIRIN) 81 08:22: daily. [place] mg chewable 29 Medical tablet Branch ACETAMINOPH 2020-0 Yes Take by Un ibrahima EN (TYLENOL 6-18 mouth. ity of ORAL) 08:22: [place] [address] Medical Branch DM/PSEUDOEP 2020-0 Yes Take by Un ibrahima HED/ACETAMI 6-18 mouth. ity of NOPHEN 08:22: [place] ([place] [address] Medical DAYQUIL Branch ORAL) IBUPROFEN 2020-0 Yes Take by Univ ers ORAL 6-18 mouth. ity of 08:22: [place] [address] Medical Branch aspirin 2020-0 Yes 81mg Take 81 mg Univ ers (BABY 6-18 by mouth ity of ASPIRIN) 81 08:22: daily. [place] mg chewable 29 Medical tablet Branch ACETAMINOPH 2020-0 Yes Take by Un ibrahima EN (TYLENOL 6-18 mouth. ity of ORAL) 08:22: [place] [address] Medical Branch DM/PSEUDOEP 2020-0 Yes Take by Un ibrahima HED/ACETAMI 6-18 mouth. ity of NOPHEN 08:22: [place] ([place] [address] Medical DAYQUIL Branch ORAL) IBUPROFEN 2020-0 Yes Take by Univ ers ORAL 6-18 mouth. ity of 08:22: [place] [address] Medical Branch aspirin 2020-0 Yes 81mg Take 81 mg Univ ers (BABY 6-18 by mouth ity of ASPIRIN) 81 08:22: daily. [place] mg chewable 29 Medical tablet Branch ACETAMINOPH 2020-0 Yes Take by Un ibrahima EN (TYLENOL 6-18 mouth. ity of ORAL) 08:22: [place] [address] Medical Branch DM/PSEUDOEP 2020-0 Yes Take by Un ibrahima HED/ACETAMI 6-18 mouth. ity of NOPHEN 08:22: [place] ([place] [address] Medical DAYQUIL Branch ORAL) IBUPROFEN 2020-0 Yes Take by Univ ers ORAL 6-18 mouth. ity of 08:22: [place] [address] Medical Branch aspirin 2020-0 Yes 81mg Take 81 mg Univ ers (BABY 6-18 by mouth ity of ASPIRIN) 81 08:22: daily. [place] mg chewable 29 Medical tablet Branch ACETAMINOPH 2020-0 Yes Take by Un ibrahima EN (TYLENOL 6-18 mouth. ity of ORAL) 08:22: [place] [address] Medical Branch DM/PSEUDOEP 2020-0 Yes Take by Un ibrahima HED/ACETAMI 6-18 mouth. ity of NOPHEN 08:22: [place] ([place] [address] Medical DAYQUIL Branch ORAL) IBUPROFEN 2020-0 Yes Take by Univ ers ORAL 6-18 mouth. ity of 08:22: [place] [address] Medical Branch aspirin 2020-0 Yes 81mg Take 81 mg Univ ers (BABY 6-18 by mouth ity of ASPIRIN) 81 08:22: daily. [place] mg chewable 29 Medical tablet Branch ACETAMINOPH 2020-0 Yes Take by Un ibrahima EN (TYLENOL 6-18 mouth. ity of ORAL) 08:22: [place] [address] Medical Branch DM/PSEUDOEP 2020-0 Yes Take by Un ibrahima HED/ACETAMI 6-18 mouth. ity of NOPHEN 08:22: [place] ([place] [address] Medical DAYQUIL Branch ORAL) IBUPROFEN 2020-0 Yes Take by Univ ers ORAL 6-18 mouth. ity of 08:22: [place] [address] Medical Branch aspirin 2020-0 Yes 81mg Take 81 mg Univ ers (BABY 6-18 by mouth ity of ASPIRIN) 81 08:22: daily. [place] mg chewable 29 Medical tablet Branch ACETAMINOPH 2020-0 Yes Take by Un ibrahima EN (TYLENOL 6-18 mouth. ity of ORAL) 08:22: [place] [address] Medical Branch DM/PSEUDOEP 2020-0 Yes Take by Un ibrahima HED/ACETAMI 6-18 mouth. ity of NOPHEN 08:22: [place] ([place] [address] Medical DAYQUIL Branch ORAL) IBUPROFEN 2020-0 Yes Take by Univ ers ORAL 6-18 mouth. ity of 08:22: [place] [address] Medical Branch aspirin 2020-0 Yes 81mg Take 81 mg Univ ers (BABY 6-18 by mouth ity of ASPIRIN) 81 08:22: daily. [place] mg chewable 29 Medical tablet Branch ACETAMINOPH 2020-0 Yes Take by Un ibrahima EN (TYLENOL 6-18 mouth. ity of ORAL) 08:22: [place] [address] Medical Branch DM/PSEUDOEP 2020-0 Yes Take by Un ibrahima HED/ACETAMI 6-18 mouth. ity of NOPHEN 08:22: [place] ([place] [address] Medical DAYQUIL Branch ORAL) IBUPROFEN 2020-0 Yes Take by Univ ers ORAL 6-18 mouth. ity of 08:22: [place] [address] Medical Branch aspirin 2020-0 Yes 81mg Take 81 mg Univ ers (BABY 6-18 by mouth ity of ASPIRIN) 81 08:22: daily. [place] mg chewable Medical tablet Branch ACETAMINOPH 2020-0 Yes Take by Un ibrahima EN (TYLENOL 6-18 mouth. ity of ORAL) 08:22: [place] [address] Medical Branch DM/PSEUDOEP 2020-0 Yes Take by Un ibrahima HED/ACETAMI 6-18 mouth. ity of NOPHEN 08:22: [place] ([place] [address] Medical DAYQUIL Branch ORAL) IBUPROFEN 2020-0 Yes Take by Univ ers ORAL 6-18 mouth. ity of 08:22: [place] [address] Medical Branch ibuprofen 2020-0 Yes [id number] 600mg Take 1 Univers 600 mg 6-18 [id number] tablet by ity of tablet 00:00: mouth [address] [place] [address] ([facility]) Medical times Branch daily with meals. ibuprofen 2020-0 Yes [id number] 600mg Take 1 Univers 600 mg 6-18 [id number] tablet by ity of tablet 00:00: mouth [address] [place] [address] ([facility]) Medical times Branch daily with meals. ibuprofen 2020-0 Yes [id number] 600mg Take 1 Univers 600 mg 6-18 [id number] tablet by ity of tablet 00:00: mouth [address] [place] [address] ([facility]) Medical times Branch daily with meals. ibuprofen 2020-0 Yes [id number] 600mg Take 1 Univers 600 mg 6-18 [id number] tablet by ity of tablet 00:00: mouth [address] [place] [address] ([facility]) Medical times Branch daily with meals. ibuprofen 2020-0 Yes [id number] 600mg Take 1 Univers 600 mg 6-18 [id number] tablet by ity of tablet 00:00: mouth [address] [place] [address] ([facility]) Medical times Branch daily with meals. ibuprofen 2020-0 Yes [id number] 600mg Take 1 Univers 600 mg 6-18 [id number] tablet by ity of tablet 00:00: mouth [address] [place] [address] ([facility]) Medical times Branch daily with meals. ibuprofen 2020-0 Yes [id number] 600mg Take 1 Univers 600 mg 6-18 [id number] tablet by ity of tablet 00:00: mouth (three) Medical times Branch daily with meals. ibuprofen 2020-0 Yes [id number] 600mg Take 1 Univers 600 mg 6-18 [id number] tablet by ity of tablet 00:00: mouth (three) Medical times Branch daily with meals. ibuprofen 2020-0 Yes [id number] 600mg Take 1 Univers 600 mg 6-18 [id number] tablet by ity of tablet 00:00: mouth (three) Medical times Branch daily with meals. ibuprofen 2020-0 Yes [id number] 600mg Take 1 Univers 600 mg 6-18 [id number] tablet by ity of tablet 00:00: mouth (three) Medical times Branch daily with meals. ibuprofen 2020-0 Yes [id number] 600mg Take 1 Univers 600 mg 6-18 [id number] tablet by ity of tablet 00:00: mouth (three) Medical times Branch daily with meals. ibuprofen 2020-0 Yes [id number] 600mg Take 1 Univers 600 mg 6-18 [id number] tablet by ity of tablet 00:00: mouth (three) Medical times Branch daily with meals. ibuprofen 2020-0 Yes [id number] 600mg Take 1 Univers 600 mg 6-18 [id number] tablet by ity of tablet 00:00: mouth (three) Medical times Branch daily with meals. ibuprofen 2020-0 Yes [id number] 600mg Take 1 Univers 600 mg 6-18 [id number] tablet by ity of tablet 00:00: mouth [...] TAKE 1 Unive rs 2.5 mg 6-15 - TABLET BY ity of tablet 00:00: 00:00 [place]CE [place] DA[place] [facility] MORNING AND 2 TABLETS IN THE EVENING ENALAPRIL Yes TAKE 1 Univer s 2.5 mg 5-26 TABLET BY ity of tablet 00:00: MOUTH ONCE [place] 00 DAILY IN [facility] [place] MORNING AND 2 IN THE EVENING ENALAPRIL 2020- No TAKE 1 Unive rs 2.5 mg 5-26 06-15 TABLET BY ity of tablet 00:00: 00:00 M[place]TH [place]CE [place] 00 [place] DAILY IN [facility] MORNING AND 2 IN THE EVENING ENALAPRIL Yes TAKE 1 Univer s 2.5 mg 4-29 TABLET BY ity of tablet 00:00: MOUTH ONCE [place] 00 DAILY IN [facility] [place] MORNING AND 2 IN THE EVENING ENALAPRIL 2020- No TAKE 1 Unive rs 2.5 mg 4-29 05-26 TABLET BY ity of tablet 00:00: 00:00 M[place]TH [place]CE [place] 00 [place] DAILY IN [facility] MORNING AND 2 IN THE EVENING ENALAPRIL Yes TAKE 1 Univer s 2.5 mg 3-30 TABLET BY ity of tablet 00:00: MOUTH ONCE [place] 00 DAILY IN [facility] [place] MORNING AND 2 IN THE EVENING ENALAPRIL 2020- No TAKE 1 Unive rs 2.5 mg 3-30 04-29 TABLET BY ity of tablet 00:00: 00:00 MOUTH ONCE [place] 00 :[place] DAILY IN [facility] MORNING AND 2 IN THE EVENING ENALAPRIL Yes TAKE 1 Univer s 2.5 mg 8-28 TABLET BY ity of tablet 00:00: MOUTH ONCE [place] 00 DAILY IN [facility] MORNING AND 2 IN THE EVENING ENALAPRIL 2020- No TAKE 1 Unive rs 2.5 mg 8-28 03-30 TABLET BY ity of tablet 00:00: 00:00 M[place]TH [place]CE [place] 00 [place] DAILY IN [facility] MORNING AND 2 IN THE EVENING phenazopyri Yes [id number] 200mg Take 1 Univers dine 200 mg 3-23 tablet by ity of tablet 00:00: mouth 3 [place] 00 (three) [facility] daily. phenazopyri Yes [id number] 200mg Take 1 Univers dine 200 mg 3-23 tablet by ity of tablet 00:00: mouth 3 (three) Medical times Branch daily. phenazopyri Yes [id number] 200mg Take 1 Univers dine 200 mg 3-23 tablet by ity of tablet 00:00: mouth 3 (three) Medical times Branch daily. phenazopyri Yes [id number] 200mg Take 1 Univers dine 200 mg 3-23 tablet by ity of tablet 00:00: mouth (three) Medical times Branch daily. phenazopyri Yes [id number] 200mg Take 1 Univers dine 200 mg 3-23 tablet by ity of tablet 00:00: mouth (three) Medical times Branch daily. phenazopyri Yes [id number] 200mg Take 1 Univers dine 200 mg 3-23 tablet by ity of tablet 00:00: mouth (three) Medical times Branch daily. phenazopyri Yes [id number] 200mg Take 1 Univers dine 200 mg 3-23 tablet by ity of tablet 00:00: mouth (three) Medical times Branch daily. phenazopyri Yes [id number] 200mg Take 1 Univers dine 200 mg 3-23 tablet by ity of tablet 00:00: mouth (three) Medical times Branch daily. phenazopyri Yes [id number] 200mg Take 1 Univers dine 200 mg 3-23 tablet by ity of tablet 00:00: mouth (three) Medical times Branch daily. phenazopyri Yes [id number] 200mg Take 1 Univers dine 200 mg 3-23 tablet by ity of tablet 00:00: mouth 3 (three) Medical times Branch daily. phenazopyri Yes [id number] 200mg Take 1 Univers dine 200 mg 3-23 tablet by ity of tablet 00:00: mouth 3 (three) Medical times Branch daily. phenazopyri Yes [id number] 200mg Take 1 Univers dine 200 mg 3-23 tablet by ity of tablet 00:00: mouth 3 (three) Medical times Branch daily. phenazopyri 2018- Yes [id number] 200mg Take 1 Univers dine 200 mg 3-23 tablet by ity of tablet 00:00: mouth 3 (three) Medical times Branch daily. phenazopyri 2018- Yes [id number] 200mg Take 1 Univers dine 200 mg 3-23 tablet by ity of tablet 00:00: mouth 3 (three) Medical times Branch daily. phenazopyri 2018- Yes [id number] 200mg Take 1 Univers dine 200 mg 3-23 tablet by ity of tablet 00:00: mouth 3 (three) Medical times Branch daily. phenazopyri 2018- Yes [id number] 200mg Take 1 Univers dine 200 mg 3-23 tablet by ity of tablet 00:00: mouth (three) Medical times Branch daily. phenazopyri Yes [id number] 200mg Take 1 Univers dine 200 mg 3-23 tablet by ity of tablet 00:00: mouth ([facility]) Medical times Branch daily. phenazopyri Yes [id number] 200mg Take 1 Univers dine 200 mg 3-23 tablet by ity of tablet 00:00: mouth (three) Medical times Branch daily. phenazopyri Yes [id number] 200mg Take 1 Univers dine 200 mg 3-23 tablet by ity of tablet 00:00: mouth 3 (three) Medical times Branch daily. phenazopyri Yes [id number] 200mg Take 1 Univers dine 200 mg 3-23 tablet by ity of tablet 00:00: mouth 3 ([facility]) Medical times Branch daily. ENALAPRIL 2019- No TAKE 1 Unive rs 2.5 mg 1-31 08-27 TABLET BY ity of tablet 00:00: 00:00 [place]CE [place] Medical THE Branch MORNING AND 2 IN THE EVENING ENALAPRIL 2016-03 Yes TAKE ONE Univ ers 2.5 mg 0-12 TABLET BY ity of tablet 00:00: MOUTH ONCE 00 DAILY IN Medical THE Branch MORNING AND TWO IN THE EVENING ENALAPRIL 2016- Yes TAKE ONE Univ ers 2.5 mg [...] HED/ACETAMI 3-08 mouth. ity of NOPHEN 21:21: [place] (VICGA 23 Medical DAYQUIL Branch ORAL) IBUPROFEN Yes Take by Univ ers ORAL 3-08 mouth. ity of 21:21: 23 Medical Branch aspirin Yes 81mg Take 81 mg Univ ers (BABY 3-08 by mouth ity of ASPIRIN) 81 21:21: daily. [place] mg chewable 23 Medical tablet Branch ACETAMINOPH Yes Take by Un ibrahima EN (TYLENOL 3-08 mouth. ity of ORAL) 21:21: [place] [address] Medical Branch aspirin 2017-0 Yes 81mg Take 81 mg Univ ers (BABY 3-08 by mouth ity of ASPIRIN) 81 21:21: daily. [place] mg chewable 23 Medical tablet Branch ACETAMINOPH 2017-0 Yes Take by Un ibrahima EN (TYLENOL 3-08 mouth. ity of ORAL) 21:21: [place] [address] Medical Branch DM/PSEUDOEP 2017-0 Yes Take by Un ibrahima HED/ACETAMI 3-08 mouth. ity of NOPHEN 21:21: [place] ([place] [address] Medical DAYQUIL Branch ORAL) IBUPROFEN 2017-0 Yes Take by Univ ers ORAL 3-08 mouth. ity of 21:21: [place] [address] Medical Branch DM/PSEUDOEP 2017-0 Yes Take by Un ibrahima HED/ACETAMI 3-08 mouth. ity of NOPHEN 21:21: [place] ([place] [address] Medical DAYQUIL Branch ORAL) IBUPROFEN 2017-0 Yes Take by Univ ers ORAL 3-08 mouth. ity of 21:21: [address] Branch aspirin 2017-0 Yes 81mg Take 81 mg Univ ers (BABY 3-08 by mouth ity of ASPIRIN) 81 21:21: daily. [place] mg chewable 23 Medical tablet Branch ACETAMINOPH 2017-0 Yes Take by Un ibrahima EN (TYLENOL 3-08 mouth. ity of ORAL) 21:21: [place] [address] Medical Branch DM/PSEUDOEP 2017-0 Yes Take by Un ibrahima HED/ACETAMI 3-08 mouth. ity of NOPHEN 21:21: [place] ([place] [address] Medical DAYQUIL Branch ORAL) IBUPROFEN 2017-0 Yes Take by Univ ers ORAL 3-08 mouth. ity of 21:21: [place] [address] Medical Branch aspirin 2017-0 Yes 81mg Take 81 mg Univ ers (BABY 3-08 by mouth ity of ASPIRIN) 81 21:21: daily. [place] mg chewable 23 Medical tablet Branch ACETAMINOPH 2017-0 Yes Take by Un ibrahima EN (TYLENOL 3-08 mouth. ity of ORAL) 21:21: [place] [address] Medical Branch DM/PSEUDOEP 2017-0 Yes Take by Un ibrahima HED/ACETAMI 3-08 mouth. ity of NOPHEN 21:21: [place] ([place] [address] Medical DAYQUIL Branch ORAL) IBUPROFEN 2017-0 Yes Take by Univ ers ORAL 3-08 mouth. ity of 21:21: 23 Medical Branch aspirin Yes 81mg Take 81 mg Univ ers (BABY 3-08 by mouth ity of ASPIRIN) 81 21:21: daily. [place] mg chewable 23 Medical tablet Branch ACETAMINOPH Yes Take by Un ibrahima EN (TYLENOL 3-08 mouth. ity of ORAL) 21:21: 23 Medical Branch DM/PSEUDOEP 2016- Yes Take by Un ibrahima HED/ACETAMI 3-08 mouth. ity of NOPHEN 21:21: [place] (VICKS 23 Medical DAYQUIL Branch ORAL) IBUPROFEN Yes Take by [facility] ers ORAL 3-08 mouth. ity of 21:21: Medical Branch SERTraline Yes [id number] TAKE ONE Univers 50 mg 3-02 TABLET BY ity of tablet 00:00: MOUTH [place] 00 DAILY FOR Medical 30 DAYS. Branch SERTraline Yes [id number] TAKE ONE Univers 50 mg 3-02 TABLET BY ity of tablet 00:00: MOUTH [place] 00 DAILY FOR Medical 30 DAYS. Branch SERTraline Yes [id number] TAKE ONE Univers 50 mg 3-02 TABLET BY ity of tablet 00:00: MOUTH [place] 00 DAILY FOR Medical 30 DAYS. Branch SERTraline Yes [id number] TAKE ONE Univers 50 mg 3-02 TABLET BY ity of tablet 00:00: MOUTH [place] 00 DAILY FOR Medical 30 DAYS. Branch SERTraline Yes [id number] TAKE ONE Univers 50 mg 3-02 TABLET BY ity of tablet 00:00: MOUTH [place] 00 DAILY FOR Medical 30 DAYS. Branch SERTraline Yes [id number] TAKE ONE Univers 50 mg 3-02 TABLET BY ity of tablet 00:00: MOUTH [place] 00 DAILY FOR Medical 30 DAYS. Branch SERTraline Yes [id number] TAKE ONE Univers 50 mg 3-02 TABLET BY ity of tablet 00:00: MOUTH [place] 00 DAILY FOR Medical 30 DAYS. Branch SERTraline Yes [id number] TAKE ONE Univers 50 mg 3-02 TABLET BY ity of tablet 00:00: MOUTH [place] 00 DAILY FOR Medical 30 DAYS. Branch SERTraline Yes [id number] TAKE ONE Univers 50 mg 3-02 TABLET BY ity of tablet 00:00: MOUTH [place] 00 DAILY FOR Medical 30 DAYS. [place] SERTraline Yes [id number] TAKE ONE [facility] 50 mg 3-02 TABLET BY [facility] tablet 00:00: MOUTH [place] 00 DAILY FOR Medical 30 DAYS. [place] SERTraline Yes [id number] TAKE ONE [facility] 50 mg 3-02 TABLET BY [facility]y of tablet 00:00: MOUTH [place] 00 DAILY FOR Medical 30 DAYS. [place] SERTraline Yes [id number] TAKE ONE [facility] 50 mg 3-02 TABLET BY ity of tablet 00:00: MOUTH [place] 00 DAILY FOR Medical 30 DAYS. [place] SERTraline Yes [id number] TAKE ONE [facility] 50 mg 3-02 TABLET BY ity of tablet 00:00: MOUTH [place] 00 DAILY FOR Medical 30 DAYS. [place] SERTraline Yes [id number] TAKE ONE [facility] 50 mg 3-02 TABLET BY [facility]y of tablet 00:00: MOUTH [place] 00 DAILY FOR Medical 30 DAYS. [place] SERTraline Yes [id number] TAKE ONE [facility] 50 mg 3-02 TABLET BY ity of tablet 00:00: MOUTH [place] 00 DAILY FOR Medical 30 DAYS. [place] SERTraline Yes [id number] TAKE ONE [facility] 50 mg 3-02 TABLET BY ity of tablet 00:00: MOUTH [place] 00 DAILY FOR Medical 30 DAYS. [place] SERTraline Yes [id number] TAKE ONE [facility] 50 mg 3-02 TABLET BY ity of tablet 00:00: MOUTH [place] 00 DAILY FOR Medical 30 DAYS. [place] SERTraline Yes [id number] TAKE ONE [facility] 50 mg 3-02 TABLET BY ity of tablet 00:00: MOUTH [place] 00 DAILY FOR Medical 30 DAYS. [place] SERTraline Yes [id number] TAKE ONE [facility] 50 mg 3-02 TABLET BY ity of tablet 00:00: MOUTH [place] 00 DAILY FOR Medical 30 DAYS. [place] SERTraline Yes [id number] TAKE ONE [facility] 50 mg 3-02 TABLET BY ity of tablet 00:00: MOUTH [place] 00 DAILY FOR Medical 30 DAYS. [place] Asprin Ec Asprin Ec No 1 Q1D [...] ROUTE. AR ROUTE. INTRAMUSCU LAR ROUTE. prazosin 2 prazosin 2 No prazosin 2 [place] mg capsule mg capsule mg capsule da TAKE ONE TAKE ONE TAKE ONE Epi scop (1) (1) (1) al CAPSULE(S) CAPSULE(S) CAPSULE(S) Health BY MOUTH BY MOUTH BY MOUTH [facility]ac DAILY AT DAILY AT DAILY AT h BEDTIME. BEDTIME. BEDTIME. Pro gram sertraline sertraline No sertraline [place] 100 mg 100 mg 100 mg da tablet TAKE tablet TAKE tablet [facility] ONE (1) ONE (1) TAKE ONE al TABLET(S) TABLET(S) (1) Healt h BY MOUTH BY MOUTH TABLET(S) Ou treac ONCE A DAY ONCE A DAY BY MOUTH h WITH MEALS. WITH MEALS. ONCE A DAY Program WITH MEALS. Immunizations Ordered Immunization Filled Immunization Date Status Commen ts Source Name Name influenza, influenza, 2019-11-30 Completed [facility] injectable, injectable, 11:22:00 [facility] quadrivalent, quadrivalent, Outreach Program preservative free preservative free Tdap Tdap 2019-11-30 Completed [facility] 11:21:00 [facility] Influenza Virus 2015-12-05 Completed [facility]it y of Vaccine Quad IM 00:00:00 [facility] ica Multi-dose 6+ MO Branch Meningococcal B, OMV 2015-12-05 Completed Univ ersity of 00:00:00 [facility] Meningococcal B, OMV 2015-12-05 Completed Univ ersity of 00:00:00 [facility] Influenza Virus 2015-12-05 Completed Universit y of Vaccine Quad IM 3+ 00:00:00 [facility] Influenza Virus 2015-12-05 Completed Universit y of Vaccine Quad IM 00:00:00 [facility] ical Multi-dose 6+ MO Branch Meningococcal B, OMV 2015-12-05 Completed Univ ersity of 00:00:00 [facility] Meningococcal B, OMV 2015-12-05 Completed Univ ersity of 00:00:00 [facility] Influenza Virus 2015-12-05 Completed Universit y of Vaccine Quad IM 3+ 00:00:00 [facility] Influenza Virus 2015-12-05 Completed [facility]it y of Vaccine Quad IM 00:00:00 [place] [facility] Multi-dose 6+ MO Branch Meningococcal B, OMV 2015-12-05 Completed Univ ersity of 00:00:00 [facility] Meningococcal B, OMV 2015-12-05 Completed Univ ersity of 00:00:00 [facility] Influenza Virus 2015-12-05 Completed [facility]it y of Vaccine Quad IM 3+ 00:00:00 [facility] Influenza Virus 2015-12-05 Completed [facility]it y of Vaccine Quad IM 00:00:00 [place] [facility] Multi-dose 6+ MO Branch Meningococcal B, OMV 2015-12-05 Completed Univ ersity of 00:00:00 [facility] Meningococcal B, OMV 2015-12-05 Completed Univ ersity of 00:00:00 [facility] Influenza Virus 2015-12-05 Completed [facility]it y of Vaccine Quad IM 3+ 00:00:00 [facility] Influenza Virus 2015-12-05 Completed [facility]it y of Vaccine Quad IM 00:00:00 [place] [facility] Multi-dose 6+ MO Branch Meningococcal B, OMV 2015-12-05 Completed Univ ersity of 00:00:00 [facility] Meningococcal B, OMV 2015-12-05 Completed Univ ersity of 00:00:00 [facility] Influenza Virus 2015-12-05 Completed Universit y of Vaccine Quad IM 3+ 00:00:00 [facility] Meningococcal B, OMV 2015-12-05 Completed Univ ersity of 00:00:00 [facility] Influenza Virus 2015-12-05 Completed Universit y of Vaccine Quad IM 3+ 00:00:00 [facility] Influenza Virus 2015-12-05 Completed [facility]it y of Vaccine Quad IM 00:00:00 [place] [facility] Multi-dose 6+ MO Branch Meningococcal B, OMV 2015-12-05 Completed Univ ersity of 00:00:00 [facility] Meningococcal B, OMV 2015-12-05 Completed Univ ersity of 00:00:00 [facility] Influenza Virus 2015-12-05 Completed [facility]it y of Vaccine Quad IM 3+ 00:00:00 [facility] Influenza Virus 2015-12-05 Completed [facility]it y of Vaccine Quad IM 00:00:00 [place] [facility] Multi-dose 6+ MO Branch Meningococcal B, OMV 2015-12-05 Completed Univ ersity of 00:00:00 [facility] Meningococcal B, OMV 2015-12-05 Completed Univ ersity of 00:00:00 [facility] Influenza Virus 2015-12-05 Completed Universit y of Vaccine Quad IM 3+ 00:00:00 [facility] Influenza Virus 2015-12-05 Completed [facility]it y of Vaccine Quad IM 00:00:00 [place] [facility] Multi-dose 6+ MO Branch Meningococcal B, OMV 2015-12-05 Completed Univ ersity of 00:00:00 [facility] Meningococcal B, OMV 2015-12-05 Completed Univ ersity of 00:00:00 [facility] Influenza Virus 2015-12-05 Completed Universit y of Vaccine Quad IM 3+ 00:00:00 [facility] Influenza Virus 2015-12-05 Completed [facility]it y of Vaccine Quad IM 00:00:00 [place] [facility] Multi-dose 6+ MO Branch Meningococcal B, OMV 2015-12-05 Completed Univ ersity of 00:00:00 [facility] Meningococcal B, OMV 2015-12-05 Completed Univ ersity of 00:00:00 [facility] Influenza Virus 2015-12-05 Completed Universit y of Vaccine Quad IM 3+ 00:00:00 [facility] Influenza Virus 2015-12-05 Completed Universit y of Vaccine Quad IM 00:00:00 [place] [facility] ical Multi-dose 6+ MO Branch Meningococcal B, OMV 2015-12-05 Completed Univ ersity of 00:00:00 [facility] Influenza Virus 2015-12-05 Completed Universit y of Vaccine Quad IM 00:00:00 [place] [facility] Multi-dose 6+ MO Branch Meningococcal B, OMV 2015-12-05 Completed Univ ersity of 00:00:00 [facility] Influenza Virus 2015-12-05 Completed Universit y of Vaccine Quad IM 3+ 00:00:00 [facility] Meningococcal B, OMV 2015-12-05 Completed Univ ersity of 00:00:00 [facility] Influenza Virus 2015-12-05 Completed Universit y of Vaccine Quad IM 00:00:00 [place] [facility] Multi-dose 6+ MO Branch Meningococcal B, OMV 2015-12-05 Completed Univ ersity of 00:00:00 [facility] Meningococcal B, OMV 2015-12-05 Completed Univ ersity of 00:00:00 [facility] Influenza Virus 2015-12-05 Completed Universit y of Vaccine Quad IM 3+ 00:00:00 [facility] Influenza Virus 2015-12-05 Completed [facility]it y of Vaccine Quad IM 00:00:00 [place] [facility] Multi-dose 6+ MO Branch Meningococcal B, OMV 2015-12-05 Completed Univ ersity of 00:00:00 [facility] Meningococcal B, OMV 2015-12-05 Completed Univ ersity of 00:00:00 [facility] Influenza Virus 2015-12-05 Completed Universit y of Vaccine Quad IM 3+ 00:00:00 [facility] Influenza Virus 2015-12-05 Completed [facility]it y of Vaccine Quad IM 00:00:00 [place] [facility] Multi-dose 6+ MO Branch Meningococcal B, OMV 2015-12-05 Completed Univ ersity of 00:00:00 [facility] Meningococcal B, OMV 2015-12-05 Completed Univ ersity of 00:00:00 [facility] Influenza Virus 2015-12-05 Completed Universit y of Vaccine Quad IM 3+ 00:00:00 [facility] Influenza Virus 2015-12-05 Completed [facility]it y of Vaccine Quad IM 00:00:00 [place] [facility] Multi-dose 6+ MO Branch Meningococcal B, OMV 2015-12-05 Completed Univ ersity of 00:00:00 [facility] Meningococcal B, OMV 2015-12-05 Completed Univ ersity of 00:00:00 [facility] Influenza Virus 2015-12-05 Completed Universit y of Vaccine Quad IM 3+ 00:00:00 [facility] Meningococcal B, OMV 2015-12-05 Completed Univ ersity of 00:00:00 [facility] Influenza Virus 2015-12-05 Completed [facility]it y of Vaccine Quad IM 3+ 00:00:00 [facility] Influenza Virus 2015-12-05 Completed [facility]it y of Vaccine Quad IM 00:00:00 [place] [facility] Multi-dose 6+ MO Branch Meningococcal B, OMV 2015-12-05 Completed Univ ersity of 00:00:00 [facility] Meningococcal B, OMV 2015-12-05 Completed Univ ersity of 00:00:00 [facility] Influenza Virus 2015-12-05 Completed Universit y of Vaccine Quad IM 3+ 00:00:00 [facility] Influenza Virus 2015-12-05 Completed [facility]it y of Vaccine Quad IM 00:00:00 [place] [facility] Multi-dose 6+ MO Branch Meningococcal B, OMV 2015-12-05 Completed Univ ersity of 00:00:00 [facility] Meningococcal B, OMV 2015-12-05 Completed Univ ersity of 00:00:00 [facility] Influenza Virus 2015-12-05 Completed Universit y of Vaccine Quad IM 3+ 00:00:00 [facility] Influenza Virus 2015-12-05 Completed [facility]it y of Vaccine Quad IM 00:00:00 [place] [facility] Multi-dose 6+ MO Branch Meningococcal B, OMV 2015-12-05 Completed Univ ersity of 00:00:00 [facility] Meningococcal B, OMV 2015-12-05 Completed Univ ersity of 00:00:00 [facility] Influenza Virus 2015-12-05 Completed Universit y of Vaccine Quad IM 3+ 00:00:00 [facility] Influenza Virus 2015-12-05 Completed [facility]it y of Vaccine Quad IM 00:00:00 [place] [facility] Multi-dose 6+ MO Branch Meningococcal B, OMV 2015-12-05 Completed Univ ersity of 00:00:00 [facility] Meningococcal B, OMV 2015-12-05 Completed Univ ersity of 00:00:00 [facility] Influenza Virus 2015-12-05 Completed Universit y of Vaccine Quad IM 3+ 00:00:00 [facility] Influenza Virus 2015-12-05 Completed [facility]it y of Vaccine Quad IM 00:00:00 [place] [facility] Multi-dose 6+ MO Branch Meningococcal B, OMV 2015-12-05 Completed Univ ersity of 00:00:00 [facility] Influenza Virus 2014-04-18 Completed Universit y of Vaccine Quad IM 00:00:00 [place] [facility] Multi-dose 6+ MO Branch Influenza [...] of (varivax)(chicken 00:00:00 [place] M edical pox) [place] Influenza Virus 2011-02-27 Completed Universit y of Vaccine 00:00:00 [facility] Meningococcal 2011-02-27 Completed University of Vaccine 00:00:00 [facility] Influenza Virus 2011-02-27 Completed Universit y of Vaccine Quad IM 3+ 00:00:00 [facility] Influenza Virus 2011-02-27 Completed Universit y of Vaccine 00:00:00 [facility] Meningococcal 2011-02-27 Completed University of Vaccine 00:00:00 [facility] Influenza Virus 2011-02-27 Completed Universit y of Vaccine Quad IM 3+ 00:00:00 [facility] Influenza Virus 2011-02-27 Completed Universit y of Vaccine 00:00:00 [facility] Meningococcal 2011-02-27 Completed University of Vaccine 00:00:00 [facility] Influenza Virus 2011-02-27 Completed Universit y of Vaccine Quad IM 3+ 00:00:00 [facility] Influenza Virus 2011-02-27 Completed Universit y of Vaccine 00:00:00 [facility] Meningococcal 2011-02-27 Completed University of Vaccine 00:00:00 [facility] Influenza Virus 2011-02-27 Completed Universit y of Vaccine 00:00:00 [facility] Meningococcal 2011-02-27 Completed University of Vaccine 00:00:00 [facility] Influenza Virus 2011-02-27 Completed Universit y of Vaccine Quad IM 3+ 00:00:00 [facility] Influenza Virus 2011-02-27 Completed Universit y of Vaccine 00:00:00 [facility] Meningococcal 2011-02-27 Completed University of Vaccine 00:00:00 [facility] Influenza Virus 2011-02-27 Completed Universit y of Vaccine Quad IM 3+ 00:00:00 [facility] Influenza Virus 2011-02-27 Completed Universit y of Vaccine 00:00:00 [facility] Meningococcal 2011-02-27 Completed University of Vaccine 00:00:00 [facility] Influenza Virus 2011-02-27 Completed Universit y of Vaccine Quad IM 3+ 00:00:00 [facility] Influenza Virus 2011-02-27 Completed Universit y of Vaccine 00:00:00 [facility] Meningococcal 2011-02-27 Completed University of Vaccine 00:00:00 [facility] Influenza Virus 2011-02-27 Completed Universit y of Vaccine Quad IM 3+ 00:00:00 [facility] Influenza Virus 2011-02-27 Completed Universit y of Vaccine 00:00:00 [facility] Meningococcal 2011-02-27 Completed University of Vaccine 00:00:00 [facility] Influenza Virus 2011-02-27 Completed Universit y of Vaccine Quad IM 3+ 00:00:00 [facility] Influenza Virus 2011-02-27 Completed Universit y of Vaccine 00:00:00 [facility] Meningococcal 2011-02-27 Completed University of Vaccine 00:00:00 [facility] Influenza Virus 2011-02-27 Completed Universit y of Vaccine Quad IM 3+ 00:00:00 [facility] Influenza Virus 2011-02-27 Completed [facility]it y of Vaccine Quad IM 3+ 00:00:00 [facility] Influenza Virus 2011-02-27 Completed Universit y of Vaccine 00:00:00 [facility] Meningococcal 2011-02-27 Completed University of Vaccine 00:00:00 [facility] Influenza Virus 2011-02-27 Completed Universit y of Vaccine Quad IM 3+ 00:00:00 [facility] Influenza Virus 2011-02-27 Completed Universit y of Vaccine 00:00:00 [facility] Meningococcal 2011-02-27 Completed University of Vaccine 00:00:00 [facility] Influenza Virus 2011-02-27 Completed Universit y of Vaccine Quad IM 3+ 00:00:00 [facility] Influenza Virus 2011-02-27 Completed Universit y of Vaccine 00:00:00 [facility] Meningococcal 2011-02-27 Completed University of Vaccine 00:00:00 [facility] Influenza Virus 2011-02-27 Completed [facility]it y of Vaccine Quad IM 3+ 00:00:00 [facility] Influenza Virus 2011-02-27 Completed Universit y of Vaccine 00:00:00 [facility] Meningococcal 2011-02-27 Completed University of Vaccine 00:00:00 [facility] Influenza Virus 2011-02-27 Completed Universit y of Vaccine Quad IM 3+ 00:00:00 [facility] Influenza Virus 2011-02-27 Completed Universit y of Vaccine 00:00:00 [facility] Meningococcal 2011-02-27 Completed University of Vaccine 00:00:00 [facility] Influenza Virus 2011-02-27 Completed Universit y of Vaccine 00:00:00 [facility] Meningococcal 2011-02-27 Completed University of Vaccine 00:00:00 [facility] Influenza Virus 2011-02-27 Completed Universit y of Vaccine Quad IM 3+ 00:00:00 [facility] Influenza Virus 2011-02-27 Completed Universit y of Vaccine 00:00:00 [facility] Meningococcal 2011-02-27 Completed University of Vaccine 00:00:00 [facility] Influenza Virus 2011-02-27 Completed Universit y of Vaccine Quad IM 3+ 00:00:00 [facility] Influenza Virus 2011-02-27 Completed Universit y of Vaccine 00:00:00 [facility] Meningococcal 2011-02-27 Completed University of Vaccine 00:00:00 [facility] Influenza Virus 2011-02-27 Completed Universit y of Vaccine Quad IM 3+ 00:00:00 [facility] Influenza Virus 2011-02-27 Completed Universit y of Vaccine 00:00:00 [facility] Meningococcal 2011-02-27 Completed University of Vaccine 00:00:00 [facility] Influenza Virus 2011-02-27 Completed Universit y of Vaccine Quad IM 3+ 00:00:00 [facility] Influenza Virus 2011-02-27 Completed Universit y of Vaccine 00:00:00 [facility] Meningococcal 2011-02-27 Completed University of Vaccine 00:00:00 [facility] Influenza Virus 2011-02-27 Completed Universit y of Vaccine Quad IM 3+ 00:00:00 [facility] Influenza Virus 2011-02-27 Completed [facility]it y of Vaccine Quad IM 3+ 00:00:00 [facility] Influenza Virus 2009-12-14 Completed [facility]it y of Vaccine Quad IM 3+ 00:00:00 [facility] Influenza Virus 2009-12-14 Completed [facility]it y of Vaccine Quad IM 3+ 00:00:00 [facility] Influenza Virus 2009-12-14 Completed [facility]it y of Vaccine Quad IM 3+ 00:00:00 [facility] Influenza Virus 2009-12-14 Completed [facility]it y of Vaccine Quad IM 3+ 00:00:00 [facility] Influenza Virus 2009-12-14 Completed [facility]it y of Vaccine Quad IM 3+ 00:00:00 [facility] Influenza Virus 2009-12-14 Completed [facility]it y of Vaccine Quad IM 3+ 00:00:00 [facility] Influenza Virus 2009-12-14 Completed [facility]it y of Vaccine Quad IM 3+ 00:00:00 [facility] Influenza Virus 2009-12-14 Completed [facility]it y of Vaccine Quad IM 3+ 00:00:00 [facility] Influenza Virus 2009-12-14 Completed [facility]it y of Vaccine Quad IM 3+ 00:00:00 [facility] Influenza Virus 2009-12-14 Completed [facility]it y of Vaccine Quad IM 3+ 00:00:00 [facility] Influenza Virus 2009-12-14 Completed [facility]it y of Vaccine Quad IM 3+ 00:00:00 [facility] Influenza Virus 2009-12-14 Completed [facility]it y of Vaccine Quad IM 3+ 00:00:00 [facility] Influenza Virus 2009-12-14 Completed [facility]it y of Vaccine Quad IM 3+ 00:00:00 [facility] Influenza Virus 2009-12-14 Completed [facility]it y of Vaccine Quad IM 3+ 00:00:00 [facility] Influenza Virus 2009-12-14 Completed [facility] y of Vaccine Quad IM 3+ 00:00:00 [facility] Influenza Virus 2009-12-14 Completed [facility] y of Vaccine Quad IM 3+ 00:00:00 [facility] Influenza Virus 2009-12-14 Completed [facility]it y of Vaccine Quad IM 3+ 00:00:00 [facility] Influenza Virus 2009-12-14 Completed [facility] y of Vaccine Quad IM 3+ 00:00:00 [facility] Influenza Virus 2009-12-14 Completed [facility]it y of Vaccine Quad IM 3+ 00:00:00 [facility] Influenza Virus 2009-12-14 Completed [facility]it y of Vaccine Quad IM 3+ 00:00:00 [facility] Influenza Virus 2009-12-12 Completed [facility]it y of Vaccine 00:00:00 [facility] Influenza Virus 2009-12-12 Completed Universit y of Vaccine 00:00:00 [facility] Influenza Virus 2009-12-12 Completed Universit y of Vaccine 00:00:00 [facility] Influenza Virus 2009-12-12 Completed Universit y of Vaccine 00:00:00 [facility] Influenza Virus 2009-12-12 Completed Universit y of Vaccine 00:00:00 [facility] Influenza Virus 2009-12-12 Completed Universit y of Vaccine 00:00:00 [facility] Influenza Virus 2009-12-12 Completed Universit y of Vaccine 00:00:00 [facility] Influenza Virus 2009-12-12 Completed [facility]it y of Vaccine 00:00:00 [facility] Influenza Virus 2009-12-12 Completed [facility]it y of Vaccine 00:00:00 [facility] Influenza Virus 2009-12-12 Completed [facility]it y of Vaccine 00:00:00 [facility] Influenza Virus 2009-12-12 Completed [facility]it y of Vaccine 00:00:00 [facility] Influenza Virus 2009-12-12 Completed Universit y of Vaccine 00:00:00 [facility] Influenza Virus 2009-12-12 Completed Universit y of Vaccine 00:00:00 [facility] Influenza Virus 2009-12-12 Completed [facility]it y of Vaccine 00:00:00 [facility] Influenza Virus 2009-12-12 Completed [facility]it y of Vaccine 00:00:00 [facility] Influenza Virus 2009-12-12 Completed [facility]it y of Vaccine 00:00:00 [facility] Influenza Virus 2009-12-12 Completed [facility]it y of Vaccine 00:00:00 [facility] Influenza Virus 2009-12-12 Completed [facility]it y of Vaccine 00:00:00 [facility] Influenza Virus 2009-12-12 Completed [facility]it y of Vaccine 00:00:00 [facility] Influenza Virus 2009-12-12 Completed Universit y of Vaccine 00:00:00 [facility] Influenza Virus 2008-12-12 Completed Universit y of Vaccine 00:00:00 [facility] Tdap 2008-12-12 Completed University of 00:00:00 [facility] Influenza Virus 2008-12-12 Completed Universit y of Vaccine Quad IM 3+ 00:00:00 [facility] Influenza Virus 2008-12-12 Completed Universit y of Vaccine 00:00:00 [facility] Tdap 2008-12-12 Completed University of 00:00:00 [facility] Influenza Virus 2008-12-12 Completed Universit y of Vaccine Quad IM 3+ 00:00:00 [facility] Influenza Virus 2008-12-12 Completed Universit y of Vaccine 00:00:00 [facility] Tdap 2008-12-12 Completed University of 00:00:00 [facility] Influenza Virus 2008-12-12 Completed Universit y of Vaccine Quad IM 3+ 00:00:00 [facility] Influenza Virus 2008-12-12 Completed Universit y of Vaccine 00:00:00 [facility] Influenza Virus 2008-12-12 Completed Universit y of Vaccine 00:00:00 [facility] Tdap 2008-12-12 Completed University of 00:00:00 [facility] Tdap 2008-12-12 Completed University of 00:00:00 [facility] Influenza Virus 2008-12-12 Completed Universit y of Vaccine Quad IM 3+ 00:00:00 [facility] Influenza Virus 2008-12-12 Completed [facility]it y of Vaccine 00:00:00 [facility] Tdap 2008-12-12 Completed University of 00:00:00 [facility] Influenza Virus 2008-12-12 Completed Universit y of Vaccine Quad IM 3+ 00:00:00 [facility] Influenza Virus 2008-12-12 Completed [facility]it y of Vaccine 00:00:00 [facility] TDAP 2008-12-12 Completed University of 00:00:00 [facility] Influenza Virus 2008-12-12 Completed Universit y of Vaccine Quad IM 3+ 00:00:00 [facility] Influenza Virus 2008-12-12 Completed Universit y of Vaccine 00:00:00 [facility] TDAP 2008-12-12 Completed University of 00:00:00 [facility] Influenza Virus 2008-12-12 Completed [facility]it y of Vaccine Quad IM 3+ 00:00:00 [facility] Influenza Virus 2008-12-12 Completed [facility]it y of Vaccine 00:00:00 [facility] TDAP 2008-12-12 Completed University of 00:00:00 [facility] Influenza Virus 2008-12-12 Completed [facility] y of Vaccine Quad IM 3+ 00:00:00 [facility] Influenza Virus 2008-12-12 Completed [facility] y of Vaccine 00:00:00 [facility] TDAP 2008-12-12 Completed University of 00:00:00 [facility] Influenza Virus 2008-12-12 Completed [facility]it y of Vaccine Quad IM 3+ 00:00:00 [facility] Influenza Virus 2008-12-12 Completed [facility]it y of Vaccine Quad IM 3+ 00:00:00 [facility] Influenza Virus 2008-12-12 Completed [facility] y of Vaccine 00:00:00 [facility] TDAP 2008-12-12 Completed [facility] 00:00:00 [facility] Influenza Virus 2008-12-12 Completed [facility] Vaccine Quad IM 3+ 00:00:00 [facility] Influenza Virus 2008-12-12 Completed [facility] Vaccine 00:00:00 [facility] TDAP 2008-12-12 Completed [facility] 00:00:00 [facility] Influenza Virus 2008-12-12 Completed [facility] Vaccine Quad IM 3+ 00:00:00 [facility] Influenza Virus 2008-12-12 Completed [facility] Vaccine 00:00:00 [facility] TDAP 2008-12-12 Completed [facility] 00:00:00 [facility] Influenza Virus 2008-12-12 Completed [facility] Vaccine Quad IM 3+ 00:00:00 [facility] Influenza Virus 2008-12-12 Completed [facility] Vaccine 00:00:00 [facility] TDAP 2008-12-12 Completed [facility] 00:00:00 [facility] Influenza Virus 2008-12-12 Completed [facility] Vaccine 00:00:00 [facility] Influenza Virus 2008-12-12 Completed [facility] Vaccine Quad IM 3+ 00:00:00 [facility] Influenza Virus 2008-12-12 Completed [facility] Vaccine 00:00:00 [facility] TDAP 2008-12-12 Completed [facility] 00:00:00 [facility] Tdap 2008-12-12 Completed [facility] 00:00:00 [facility] Influenza Virus 2008-12-12 Completed [facility] Vaccine Quad IM 3+ 00:00:00 [facility] Influenza Virus 2008-12-12 Completed [facility] Vaccine 00:00:00 [facility] TDAP 2008-12-12 Completed [facility] 00:00:00 [facility] Influenza Virus 2008-12-12 Completed [facility] Vaccine Quad IM 3+ 00:00:00 [facility] Influenza Virus 2008-12-12 Completed [facility] Vaccine 00:00:00 [facility] TDAP 2008-12-12 Completed [facility] 00:00:00 [facility] Influenza Virus 2008-12-12 Completed [facility] Vaccine Quad IM 3+ 00:00:00 [facility] Influenza Virus 2008-12-12 Completed [facility] Vaccine 00:00:00 [facility] TDAP 2008-12-12 Completed [facility] 00:00:00 [facility] Influenza Virus 2008-12-12 Completed [facility] Vaccine Quad IM 3+ 00:00:00 [facility] Influenza Virus 2008-12-12 Completed [facility] Vaccine 00:00:00 [facility] TDAP 2008-12-12 Completed [facility] 00:00:00 [facility] Influenza Virus 2008-12-12 Completed [facility] Vaccine Quad IM 3+ 00:00:00 [facility] Influenza Virus 2008-12-12 Completed [facility] Vaccine Quad IM 3+ 00:00:00 [facility] Influenza Virus 2008-01-26 Completed [facility] Vaccine 00:00:00 [facility] Influenza Virus 2008-01-26 Completed [facility] Vaccine 00:00:00 [facility] Influenza Virus 2008-01-26 Completed [facility] Vaccine 00:00:00 [facility] Influenza Virus 2008-01-26 Completed [facility] Vaccine 00:00:00 [facility] Influenza Virus 2008-01-26 Completed [facility] Vaccine 00:00:00 [facility] Influenza Virus 2008-01-26 Completed [facility] Vaccine 00:00:00 [facility] Influenza Virus 2008-01-26 Completed [facility] Vaccine 00:00:00 [facility] Influenza Virus 2008-01-26 Completed [facility] Vaccine 00:00:00 [facility] Influenza Virus 2008-01-26 Completed [facility] Vaccine 00:00:00 [facility] Influenza Virus 2008-01-26 Completed [facility] Vaccine 00:00:00 [facility] Influenza Virus 2008-01-26 Completed [facility] Vaccine 00:00:00 [facility] Influenza Virus 2008-01-26 Completed [facility] Vaccine 00:00:00 [facility] Influenza Virus 2008-01-26 Completed [facility] Vaccine 00:00:00 [facility] Influenza Virus 2008-01-26 Completed [facility] Vaccine 00:00:00 [facility] Influenza Virus 2008-01-26 Completed [facility] Vaccine 00:00:00 [facility] Influenza Virus 2008-01-26 Completed [facility] Vaccine 00:00:00 [facility] Influenza Virus 2008-01-26 Completed [facility] Vaccine 00:00:00 [facility] Influenza Virus 2008-01-26 Completed [facility] Vaccine 00:00:00 [facility] Influenza Virus 2008-01-26 Completed [facility] Vaccine 00:00:00 [facility] Influenza Virus 2008-01-26 Completed [facility] Vaccine 00:00:00 [facility] Influenza Virus 2006-01-27 Completed [facility] Vaccine Quad IM 3+ 00:00:00 [facility] Influenza Virus 2006-01-27 Completed [facility] Vaccine Quad IM 3+ 00:00:00 [facility] Influenza Virus 2006-01-27 Completed [facility] Vaccine Quad IM 3+ 00:00:00 [facility] Influenza Virus 2006-01-27 Completed [facility] Vaccine Quad IM 3+ 00:00:00 [facility] Influenza Virus 2006-01-27 Completed [facility] Vaccine Quad IM 3+ 00:00:00 [facility] Influenza Virus 2006-01-27 Completed [facility] Vaccine Quad IM 3+ 00:00:00 [facility] Influenza Virus 2006-01-27 Completed [facility] Vaccine Quad IM 3+ 00:00:00 [facility] Influenza Virus 2006-01-27 Completed [facility] Vaccine Quad IM 3+ 00:00:00 [facility] Influenza Virus 2006-01-27 Completed [facility] Vaccine Quad IM 3+ 00:00:00 [facility] Influenza Virus 2006-01-27 Completed [facility] Vaccine Quad IM 3+ 00:00:00 [facility] Influenza Virus 2006-01-27 Completed [facility] Vaccine Quad IM 3+ 00:00:00 [facility] Influenza Virus 2006-01-27 Completed [facility] Vaccine Quad IM 3+ 00:00:00 [facility] Influenza Virus 2006-01-27 Completed [facility] Vaccine Quad IM 3+ 00:00:00 [facility] Influenza Virus 2006-01-27 Completed [facility] Vaccine Quad IM 3+ 00:00:00 [facility] Influenza Virus 2006-01-27 Completed [facility] Vaccine Quad IM 3+ 00:00:00 [facility] Influenza Virus 2006-01-27 Completed [facility] Vaccine Quad IM 3+ 00:00:00 [facility] Influenza Virus 2006-01-27 Completed [facility] Vaccine Quad IM 3+ 00:00:00 [facility] Influenza Virus 2006-01-27 Completed [facility] Vaccine Quad IM 3+ 00:00:00 [facility] Influenza Virus 2006-01-27 Completed [facility] Vaccine Quad IM 3+ 00:00:00 [facility] Influenza Virus 2006-01-27 Completed [facility] Vaccine Quad IM 3+ 00:00:00 [facility] Influenza Virus 2006-01-23 Completed [facility] Vaccine 00:00:00 [facility] Influenza Virus 2006-01-23 Completed [facility] Vaccine Quad IM 3+ 00:00:00 [facility] Influenza Virus 2006-01-23 Completed [facility] Vaccine 00:00:00 [facility] Influenza Virus 2006-01-23 Completed [facility] Vaccine Quad IM 3+ 00:00:00 [facility] Influenza Virus 2006-01-23 Completed [facility] Vaccine 00:00:00 [facility] Influenza Virus 2006-01-23 Completed [facility] Vaccine 00:00:00 [facility] Influenza Virus 2006-01-23 Completed [facility] Vaccine Quad IM 3+ 00:00:00 [facility] Influenza Virus 2006-01-23 Completed [facility] Vaccine 00:00:00 [facility] Influenza Virus 2006-01-23 Completed [facility] Vaccine Quad IM 3+ 00:00:00 [facility] Influenza Virus 2006-01-23 Completed [facility] Vaccine 00:00:00 [facility] Influenza Virus 2006-01-23 Completed [facility] Vaccine Quad IM 3+ 00:00:00 [facility] Influenza Virus 2006-01-23 Completed [facility] Vaccine 00:00:00 [facility] Influenza Virus 2006-01-23 Completed [facility] Vaccine Quad IM 3+ 00:00:00 [facility] Influenza Virus 2006-01-23 Completed [facility] Vaccine 00:00:00 [facility] Influenza Virus 2006-01-23 Completed [facility] Vaccine Quad IM 3+ 00:00:00 [facility] Influenza Virus 2006-01-23 Completed [facility] Vaccine 00:00:00 [facility] Influenza Virus 2006-01-23 Completed [facility] Vaccine Quad IM 3+ 00:00:00 [facility] Influenza Virus 2006-01-23 Completed [facility] Vaccine Quad IM 3+ 00:00:00 [facility] Influenza Virus 2006-01-23 Completed [facility] Vaccine 00:00:00 [facility] Influenza Virus 2006-01-23 Completed [facility] Vaccine Quad IM 3+ 00:00:00 [facility] Influenza Virus 2006-01-23 Completed [facility] Vaccine 00:00:00 [facility] Influenza Virus 2006-01-23 Completed [facility] Vaccine Quad IM 3+ 00:00:00 [facility] Influenza Virus 2006-01-23 Completed [facility] Vaccine 00:00:00 [facility] Influenza Virus 2006-01-23 Completed [facility] Vaccine Quad IM 3+ 00:00:00 [facility] Influenza Virus 2006-01-23 Completed [facility] Vaccine 00:00:00 [facility] Influenza Virus 2006-01-23 Completed [facility] Vaccine Quad IM 3+ 00:00:00 [facility] Influenza Virus 2006-01-23 Completed [facility] Vaccine 00:00:00 [facility] Influenza Virus 2006-01-23 Completed [facility] Vaccine 00:00:00 [facility] Influenza Virus 2006-01-23 Completed [facility] Vaccine Quad IM 3+ 00:00:00 [facility] Influenza Virus 2006-01-23 Completed [facility] Vaccine 00:00:00 [facility] Influenza Virus 2006-01-23 Completed [facility] Vaccine Quad IM 3+ 00:00:00 [facility] Influenza Virus 2006-01-23 Completed [facility] Vaccine 00:00:00 [facility] Influenza Virus 2006-01-23 Completed [facility] Vaccine Quad IM 3+ 00:00:00 [facility] Influenza Virus 2006-01-23 Completed [facility] Vaccine 00:00:00 [facility] Influenza Virus 2006-01-23 Completed [facility] Vaccine Quad IM 3+ 00:00:00 [facility] Influenza Virus 2006-01-23 Completed [facility] Vaccine 00:00:00 [facility] Influenza Virus 2006-01-23 Completed [facility] Vaccine Quad IM 3+ 00:00:00 [facility] Influenza Virus 2006-01-23 Completed [facility] Vaccine Quad IM 3+ 00:00:00 [facility] Influenza Virus 2006-01-23 Completed [facility] Vaccine 00:00:00 [facility] Influenza Virus 2006-01-23 Completed [facility] Vaccine Quad IM 3+ 00:00:00 [facility] MMR 2002-10-30 Completed [facility] 00:00:00 [facility] Polio (IPV/OPV) 2002-10-30 Completed [facility] 00:00:00 [facility] MMR 2002-10-30 Completed [facility] 00:00:00 [facility] Polio (IPV/OPV) 2002-10-30 Completed [facility] 00:00:00 [facility] MMR 2002-10-30 Completed [facility] 00:00:00 [facility] Polio (IPV/OPV) 2002-10-30 Completed [facility] 00:00:00 [facility] MMR 2002-10-30 Completed [facility] 00:00:00 [facility] Polio (IPV/OPV) 2002-10-30 Completed [facility] 00:00:00 [facility] 2002-10-30 Completed [facility] 00:00:00 [facility] Polio (IPV/OPV) 2002-10-30 Completed [facility] 00:00:00 [facility] MMR 2002-10-30 Completed [facility] 00:00:00 [facility] Polio (IPV/OPV) 2002-10-30 Completed [facility] 00:00:00 [facility] MMR 2002-10-30 Completed [facility] 00:00:00 [facility] MMR 2002-10-30 Completed [facility] 00:00:00 [facility] Polio (IPV/OPV) 2002-10-30 Completed [facility] 00:00:00 [facility] Polio (IPV/OPV) 2002-10-30 Completed [facility] 00:00:00 [facility] MMR 2002-10-30 Completed [facility] 00:00:00 [facility] Polio (IPV/OPV) 2002-10-30 Completed [facility] 00:00:00 [facility] MMR 2002-10-30 Completed [facility] 00:00:00 [facility] Polio (IPV/OPV) 2002-10-30 Completed [facility] 00:00:00 [facility] 2002-10-30 Completed [facility] 00:00:00 [facility] Polio (IPV/OPV) 2002-10-30 Completed [facility] 00:00:00 [facility] 2002-10-30 Completed [facility] 00:00:00 [facility] Polio (IPV/OPV) 2002-10-30 Completed [facility] 00:00:00 [facility] 2002-10-30 Completed [facility] 00:00:00 [facility] Polio (IPV/OPV) 2002-10-30 Completed [facility] 00:00:00 [facility] 2002-10-30 Completed [facility] 00:00:00 [facility] Polio (IPV/OPV) 2002-10-30 Completed [facility] 00:00:00 [facility] 2002-10-30 Completed [facility] 00:00:00 [facility] Polio (IPV/OPV) 2002-10-30 Completed [facility] 00:00:00 [facility] 2002-10-30 Completed [facility] 00:00:00 [facility] Polio (IPV/OPV) 2002-10-30 Completed [facility] 00:00:00 [facility] 2002-10-30 Completed [facility] 00:00:00 [facility] Polio (IPV/OPV) 2002-10-30 Completed [facility] 00:00:00 [facility] 2002-10-30 Completed [facility] 00:00:00 [facility] Polio (IPV/OPV) 2002-10-30 Completed [facility] 00:00:00 [facility] 2002-10-30 Completed [facility] 00:00:00 [facility] Polio (IPV/OPV) 2002-10-30 Completed [facility] 00:00:00 [facility] 2002-10-30 Completed [facility] 00:00:00 [facility] Polio (IPV/OPV) 2002-10-30 Completed [facility] 00:00:00 [facility] Varicella 2000-11-16 Completed University [...] [facility] 00:00:00 [facility] Polio (IPV/OPV) 1999-01-07 Completed [facility] 00:00:00 [facility] DTAP 1999-01-07 Completed [facility] 00:00:00 [facility] Polio (IPV/OPV) 1999-01-07 Completed [facility] 00:00:00 [facility] DTAP 1999-01-07 Completed [facility] 00:00:00 [facility] Polio (IPV/OPV) 1999-01-07 Completed [facility] 1999-01-07 Completed [facility] 00:00:00 [facility] Polio (IPV/OPV) 1999-01-07 Completed [facility] 1999-01-07 Completed [facility] 00:00:00 [facility] Polio (IPV/OPV) 1999-01-07 Completed [facility] 00:00:00 [facility] DTAP 1999-01-07 Completed [facility] 1999-01-07 Completed [facility] 00:00:00 [facility] Polio (IPV/OPV) 1999-01-07 Completed [facility] 1999-01-07 Completed [facility] 00:00:00 [facility] Polio (IPV/OPV) 1999-01-07 Completed [facility] 00:00:00 [facility] Polio (IPV/OPV) 1999-01-07 Completed [facility] 00:00:00 [facility] DTAP 1999-01-07 Completed [facility] 00:00:00 [facility] Polio (IPV/OPV) 1999-01-07 Completed [facility] 1999-01-07 Completed [facility] 00:00:00 [facility] Polio (IPV/OPV) 1999-01-07 Completed [facility] 1999-01-07 Completed [facility] 00:00:00 [facility] Polio (IPV/OPV) 1999-01-07 Completed [facility] 00:00:00 [facility] DTAP 1999-01-07 Completed [facility] 00:00:00 [facility] Polio (IPV/OPV) 1999-01-07 Completed [facility] 00:00:00 [facility] DTAP 1999-01-07 Completed [facility] 00:00:00 [facility] Polio (IPV/OPV) 1999-01-07 Completed [facility] 00:00:00 [facility] DTAP 1999-01-07 Completed [facility] 00:00:00 [facility] Polio (IPV/OPV) 1999-01-07 Completed [facility] 00:00:00 [facility] DTAP 1999-01-07 Completed [facility] 00:00:00 [facility] Polio (IPV/OPV) 1999-01-07 Completed [facility] 00:00:00 [facility] DTAP 1999-01-07 Completed [facility] 00:00:00 [facility] Polio (IPV/OPV) 1999-01-07 Completed [facility] 00:00:00 [facility] DTAP 1999-01-07 Completed [facility] 00:00:00 [facility] DTAP 1999-01-07 Completed [facility] 00:00:00 [facility] Polio (IPV/OPV) 1999-01-07 Completed [facility] 00:00:00 [facility] Polio (IPV/OPV) 1999-01-07 Completed [facility] 00:00:00 [facility] DTAP 1999-01-07 Completed [facility] 00:00:00 [facility] Polio (IPV/OPV) 1999-01-07 Completed [facility] 00:00:00 [facility] DTAP 1999-01-07 Completed [facility] 00:00:00 [facility] Polio (IPV/OPV) 1999-01-07 Completed [facility] 00:00:00 [facility] HIB 3 Dose Schedule 1998-09-19 Completed [facility]ive rsity of 00:00:00 [facility] Hep B, Adol or Pedi 1998-09-19 Completed [facility]ive rsity of Dosage 00:00:00 [facility] HIB 3 Dose Schedule 1998-09-19 Completed [facility] rs[facility] of 00:00:00 [facility] Hep B, Adol or Pedi 1998-09-19 Completed [facility]ive rsity of Dosage 00:00:00 [facility] HIB 3 Dose Schedule 1998-09-19 Completed [...] Branch DTAP 1998-02-26 Completed [facility] 00:00:00 [facility] DTAP 1998-02-26 Completed [facility] 00:00:00 [facility] DTAP 1998-02-26 Completed [facility] 00:00:00 [facility] DTAP 1998-02-26 Completed [facility] 00:00:00 [facility] DTAP 1998-02-26 Completed [facility] 00:00:00 [facility] DTAP 1998-02-26 Completed [facility] 00:00:00 [facility] DTAP 1997 Completed [facility] 00:00:00 [facility] HIB 3 Dose Schedule 1997 Completed [facility] rs[facility] 00:00:00 [facility] Hep B, Adol or Pedi 1997 Completed [facility]ive rsity of Dosage 00:00:00 [facility] Polio (IPV/OPV) 1997 Completed [facility] 00:00:00 [facility] DTAP 1997 Completed [facility] 00:00:00 [facility] HIB 3 Dose Schedule 1997 Completed [facility] 00:00:00 [facility] Hep B, Adol or Pedi 1997 Completed [facility]ive rs[facility] of Dosage 00:00:00 [facility] Polio (IPV/OPV) 1997 Completed [facility] 00:00:00 [facility] DTAP 1997 Completed [facility] 00:00:00 [facility] HIB 3 Dose Schedule 1997 Completed [facility] rs[facility] 00:00:00 [facility] Hep B, Adol or Pedi 1997 Completed [facility]ive rs[facility] of Dosage 00:00:00 [facility] Polio (IPV/OPV) 1997 Completed [facility] 00:00:00 [facility] DTAP 1997 Completed [facility] 00:00:00 [facility] HIB 3 Dose Schedule 1997 Completed [facility] rs[facility] 00:00:00 [facility] Hep B, Adol or Pedi 1997 Completed [facility] rs[facility] of Dosage 00:00:00 [facility] Polio (IPV/OPV) 1997 Completed [facility] 00:00:00 [facility] DTAP 1997 Completed [facility] 00:00:00 [facility] HIB 3 Dose Schedule 1997 Completed [facility] rs[facility] 00:00:00 [facility] Hep B, Adol or Pedi 1997 Completed [facility] rs[facility] of Dosage 00:00:00 [facility] DTAP 1997 Completed [facility] 00:00:00 [facility] Polio (IPV/OPV) 1997 Completed [facility] 00:00:00 [facility] HIB 3 Dose Schedule 1997 Completed [facility] 00:00:00 [facility] DTAP 1997 Completed [facility] 00:00:00 [facility] HIB 3 Dose Schedule 1997 Completed [facility] 00:00:00 [facility] Hep B, Adol or Pedi 1997 Completed [facility] of Dosage 00:00:00 [facility] Hep B, Adol or Pedi 1997 Completed [facility] of Dosage 00:00:00 [facility] Polio (IPV/OPV) 1997 Completed [facility] 00:00:00 [facility] DTAP 1997 Completed [facility] 00:00:00 [facility] HIB 3 Dose Schedule 1997 Completed [facility] 00:00:00 [facility] Hep B, Adol or Pedi 1997 Completed [facility] of Dosage 00:00:00 [facility] Polio (IPV/OPV) 1997 Completed [facility] 00:00:00 [facility] Polio (IPV/OPV) 1997 Completed [facility] 00:00:00 [facility] DTAP 1997 Completed [facility] 00:00:00 [facility] HIB 3 Dose Schedule 1997 Completed [facility] 00:00:00 [facility] Hep B, Adol or Pedi 1997 Completed [facility] rs[facility] of Dosage 00:00:00 [facility] Polio (IPV/OPV) 1997 Completed [facility] 00:00:00 [facility] DTAP 1997 Completed [facility] 00:00:00 [facility] HIB 3 Dose Schedule 1997 Completed [facility] 00:00:00 [facility] Hep B, Adol or Pedi 1997 Completed [facility] of Dosage 00:00:00 [facility] Polio (IPV/OPV) 1997 Completed [facility] 00:00:00 [facility] DTAP 1997 Completed [facility] 00:00:00 [facility] HIB 3 Dose Schedule 1997 Completed [facility] 00:00:00 [facility] Hep B, Adol or Pedi 1997 Completed [facility] of Dosage 00:00:00 [facility] Polio (IPV/OPV) 1997 Completed [facility] 00:00:00 [facility] DTAP 1997 Completed [facility] 00:00:00 [facility] HIB 3 Dose Schedule 1997 Completed [facility] 00:00:00 [facility] Hep B, Adol or Pedi 1997 Completed [facility] of Dosage 00:00:00 [facility] Polio (IPV/OPV) 1997 Completed [facility] 00:00:00 [facility] DTAP 1997 Completed [facility] 00:00:00 [facility] HIB 3 Dose Schedule 1997 Completed [facility] 00:00:00 [facility] Hep B, Adol or Pedi 1997 Completed [facility] of Dosage 00:00:00 [facility] Polio (IPV/OPV) 1997 Completed [facility] 00:00:00 [facility] DTAP 1997 Completed [facility] 00:00:00 [facility] HIB 3 Dose Schedule 1997 Completed [facility] 00:00:00 [facility] Hep B, Adol or Pedi 1997 Completed [facility] of Dosage 00:00:00 [facility] Polio (IPV/OPV) 1997 Completed [facility] 00:00:00 [facility] DTAP 1997 Completed [facility] 00:00:00 [facility] HIB 3 Dose Schedule 1997 Completed [facility] 00:00:00 [facility] Hep B, Adol or Pedi 1997 Completed Unive rsity of Dosage 00:00:00 [facility] Polio (IPV/OPV) 1997 Completed Universit y of 00:00:00 [facility] DTAP 1997 Completed University of 00:00:00 [facility] DTAP 1997 Completed University of 00:00:00 [facility] HIB 3 Dose Schedule 1997 Completed Unive rsity of 00:00:00 [facility] Hep B, Adol or Pedi 1997 Completed Unive rsity of Dosage 00:00:00 [facility] Polio (IPV/OPV) 1997 Completed Universit y of 00:00:00 [facility] HIB 3 Dose Schedule 1997 Completed Unive rsity of 00:00:00 [facility] Hep B, Adol or Pedi 1997 Completed Unive rsity of Dosage 00:00:00 [facility] DTAP 1997 Completed University of 00:00:00 [facility] HIB 3 Dose Schedule 1997 Completed Unive rsity of 00:00:00 [facility] Hep B, Adol or Pedi 1997 Completed Unive rsity of Dosage 00:00:00 [facility] Polio (IPV/OPV) 1997 Completed Universit y of 00:00:00 [facility] Polio (IPV/OPV) 1997 Completed Universit y of 00:00:00 [facility] DTAP 1997 Completed University of 00:00:00 [facility] HIB 3 Dose Schedule 1997 Completed Unive rsity of 00:00:00 [facility] Hep B, Adol or Pedi 1997 Completed Unive rsity of Dosage 00:00:00 [facility] Polio (IPV/OPV) 1997 Completed Universit y of 00:00:00 [facility] DTAP 1997 Completed University of 00:00:00 [facility] HIB 3 Dose Schedule 1997 Completed Unive rsity of 00:00:00 [facility] Hep B, Adol or Pedi 1997 Completed Unive rsity of Dosage 00:00:00 [facility] Polio (IPV/OPV) 1997 Completed Universit y of 00:00:00 [facility] DTAP 1997 Completed University of 00:00:00 [facility] HIB 3 Dose Schedule 1997 Completed Unive rsity of 00:00:00 [facility] Hep B, Adol or Pedi 1997 Completed Unive rsity of Dosage 00:00:00 [facility] DTAP 1997 Completed University of 00:00:00 [facility] HIB 3 Dose Schedule 1997 Completed Unive rsity of 00:00:00 [facility] Hep B, Adol or Pedi 1997 Completed Unive rsity of Dosage 00:00:00 [facility] DTAP 1997 Completed University of 00:00:00 [facility] HIB 3 Dose Schedule 1997 Completed Unive rsity of 00:00:00 [facility] Hep B, Adol or Pedi 1997 Completed Unive rsity of Dosage 00:00:00 [facility] DTAP 1997 Completed University of 00:00:00 [facility] HIB 3 Dose Schedule 1997 Completed Unive rsity of 00:00:00 [facility] Hep B, Adol or Pedi 1997 Completed Unive rsity of Dosage 00:00:00 [facility] DTAP 1997 Completed University of 00:00:00 [facility] DTAP 1997 Completed University of 00:00:00 [facility] HIB 3 Dose Schedule 1997 Completed Unive rsity of 00:00:00 [facility] Hep B, Adol or Pedi 1997 Completed Unive rsity of Dosage 00:00:00 [facility] HIB 3 Dose Schedule 1997 Completed Unive rsity of 00:00:00 [facility] DTAP 1997 Completed University of 00:00:00 [facility] HIB 3 Dose Schedule 1997 Completed Unive rsity of 00:00:00 [facility] Hep B, Adol or Pedi 1997 Completed Unive rsity of Dosage 00:00:00 [facility] Hep B, Adol or Pedi 1997 Completed Unive rsity of Dosage 00:00:00 [facility] DTAP 1997 Completed University of 00:00:00 [facility] HIB 3 Dose Schedule 1997 Completed Unive rsity of 00:00:00 [facility] Hep B, Adol or Pedi 1997 Completed Unive rsity of Dosage 00:00:00 [facility] DTAP 1997 Completed University of 00:00:00 [facility] HIB 3 Dose Schedule 1997 Completed Unive rsity of 00:00:00 [facility] Hep B, Adol or Pedi 1997 Completed Unive rsity of Dosage 00:00:00 [facility] DTAP 1997 Completed University of 00:00:00 [facility] HIB 3 Dose Schedule 1997 Completed Unive rsity of 00:00:00 [facility] Hep B, Adol or Pedi 1997 Completed Unive rsity of Dosage 00:00:00 [facility] DTAP 1997 Completed University of 00:00:00 [facility] HIB 3 Dose Schedule 1997 Completed Unive rsity of 00:00:00 [facility] Hep B, Adol or Pedi 1997 Completed Unive rsity of Dosage 00:00:00 [facility] DTAP 1997 Completed University of 00:00:00 [facility] HIB 3 Dose Schedule 1997 Completed Unive rsity of 00:00:00 [facility] Hep B, Adol or Pedi 1997 Completed Unive rsity of Dosage 00:00:00 [facility] DTAP 1997 Completed University of 00:00:00 [facility] HIB 3 Dose Schedule 1997 Completed Unive rsity of 00:00:00 [facility] Hep B, Adol or Pedi 1997 Completed Unive rsity of Dosage 00:00:00 [facility] DTAP 1997 Completed University of 00:00:00 [facility] HIB 3 Dose Schedule 1997 Completed Unive rsity of 00:00:00 [facility] Hep B, Adol or Pedi 1997 Completed Unive rsity of Dosage 00:00:00 [facility] DTAP 1997 Completed University of 00:00:00 [facility] HIB 3 Dose Schedule 1997 Completed Unive rsity of 00:00:00 [facility] Hep B, Adol or Pedi 1997 Completed Unive rsity of Dosage 00:00:00 [facility] DTAP 1997 Completed University of 00:00:00 [facility] DTAP 1997 Completed University of 00:00:00 [facility] HIB 3 Dose Schedule 1997 Completed Unive rsity of 00:00:00 [facility] Hep B, Adol or Pedi 1997 Completed Unive rsity of Dosage 00:00:00 [facility] HIB 3 Dose Schedule 1997 Completed Unive rsity of 00:00:00 [facility] DTAP 1997 Completed University of 00:00:00 [facility] HIB 3 Dose Schedule 1997 Completed Unive rsity of 00:00:00 [facility] Hep B, Adol or Pedi 1997 Completed Unive rsity of Dosage 00:00:00 [facility] Hep B, Adol or Pedi 1997 Completed Unive rsity of Dosage 00:00:00 [facility] DTAP 1997 Completed University of 00:00:00 [facility] HIB 3 Dose Schedule 1997 Completed Unive rsity of 00:00:00 [facility] Hep B, Adol or Pedi 1997 Completed Unive rsity of Dosage 00:00:00 [facility] DTAP 1997 Completed University of 00:00:00 [facility] HIB 3 Dose Schedule 1997 Completed Unive rsity of 00:00:00 [facility] Hep B, Adol or Pedi 1997 Completed Unive rsity of Dosage 00:00:00 [facility] Polio (IPV/OPV) 1997 Completed Universit y of 00:00:00 [facility] Polio (IPV/OPV) 1997 Completed Universit y of 00:00:00 [facility] Polio (IPV/OPV) 1997 Completed Universit y of 00:00:00 [facility] Polio (IPV/OPV) 1997 Completed Universit y of 00:00:00 [facility] Polio (IPV/OPV) 1997 Completed Universit y of 00:00:00 [facility] Polio (IPV/OPV) 1997 Completed Universit y of 00:00:00 [facility] Polio (IPV/OPV) 1997 Completed Universit y of 00:00:00 [facility] Polio (IPV/OPV) 1997 Completed Universit y of 00:00:00 [facility] Polio (IPV/OPV) 1997 Completed Universit y of 00:00:00 [facility] Polio (IPV/OPV) 1997 Completed Universit y of 00:00:00 [facility] Polio (IPV/OPV) 1997 Completed Universit y of 00:00:00 [facility] Polio (IPV/OPV) 1997 Completed Universit y of 00:00:00 [facility] Polio (IPV/OPV) 1997 Completed Universit y of 00:00:00 [facility] Polio (IPV/OPV) 1997 Completed Universit y of 00:00:00 [facility] Polio (IPV/OPV) 1997 Completed Universit y of 00:00:00 [facility] Polio (IPV/OPV) 1997 Completed Universit y of 00:00:00 [facility] Polio (IPV/OPV) 1997 Completed Universit y of 00:00:00 [facility] Polio (IPV/OPV) 1997 Completed Universit y of 00:00:00 [facility] Polio (IPV/OPV) 1997 Completed Universit y of 00:00:00 [facility] Polio (IPV/OPV) 1997 Completed Universit y of 00:00:00 [facility] Vital Signs Vital Name Observation Time Observation Value Comments Source BP Diastolic 2021-04-19 00:00:00 76 mm[Hg] [facility] Height 2021-04-19 00:00:00 61 [in_i] [place] [facility] BMI (Body Mass 2021-04-19 00:00:00 24.9 kg/m2 [facility] 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) [facility] BP Systolic 2020-09-12 00:00:00 109 mm[Hg] [place] [facility] Body Weight 2020-09-12 00:00:00 2083 [oz_av] [place] [facility] Systolic blood 2020-04-04 22:53:00 107 mm[Hg] Univer sity [facility] Diastolic blood 2020-04-04 22:53:00 73 mm[Hg] Unive [facility] Heart rate 2020-04-04 22:53:00 81 /min [facility] Body temperature 2020-04-04 22:53:00 37.22 Roxanne [facility] Respiratory rate 2020-04-04 22:53:00 16 /min [facility] Body height 2020-04-04 22:53:00 154.9 cm [facility] Body weight 2020-04-04 22:53:00 54.432 kg [facility] BMI 2020-04-04 22:53:00 22.67 kg/m2 [facility] Oxygen saturation in 2020-04-04 22:53:00 95 /min [facility] Arterial blood by [facility] Pulse oximetry Branch Systolic blood 2020-04-04 22:53:00 107 mm[Hg] Univer sity of pressure [facility] Diastolic blood 2020-04-04 22:53:00 73 mm[Hg] Unive rsity of pressure [facility] Heart rate 2020-04-04 22:53:00 81 /min [facility]i ty [facility] Body temperature 2020-04-04 22:53:00 37.22 Roxanne Univ ersity of [facility] Respiratory rate 2020-04-04 22:53:00 16 /min Univ ersity of [facility] Body height 2020-04-04 22:53:00 154.9 cm [facility]i [facility] Body weight 2020-04-04 22:53:00 54.432 kg [facility] BMI 2020-04-04 22:53:00 22.67 kg/m2 Universi ty of [facility] Oxygen saturation in 2020-04-04 22:53:00 95 /min University of Arterial blood by [place] [employer] [facility] Pulse oximetry Branch Systolic blood 2020-04-01 11:02:00 113 mm[Hg] Univer sity of pressure [facility] Diastolic blood 2020-04-01 11:02:00 58 mm[Hg] Unive rsity of pressure [facility] Heart rate 2020-04-01 11:02:00 71 /min [facility]i ty [facility] Respiratory rate 2020-04-01 11:02:00 16 /min Univ ersity of [facility] Oxygen saturation in 2020-04-01 11:02:00 95 /min University of Arterial blood by [place] [employer] [facility] Pulse oximetry [facility] Body temperature 2020-04-01 09:09:00 36.89 Roxanne Univ ersity of [facility] Body height 2020-04-01 05:45:00 152.4 cm [facility]i [facility] Body weight 2020-04-01 05:45:00 54.432 kg [facility] BMI 2020-04-01 05:45:00 23.44 kg/m2 [facility] Systolic blood 2020-04-01 11:02:00 113 mm[Hg] Univer sity of pressure [facility] Diastolic blood 2020-04-01 11:02:00 58 mm[Hg] Unive rsity of pressure [facility] Heart rate 2020-04-01 11:02:00 71 /min [facility] Respiratory rate 2020-04-01 11:02:00 16 /min [facility] Oxygen saturation in 2020-04-01 11:02:00 95 /min [facility] Arterial blood by [facility] Pulse oximetry [place] Body temperature 2020-04-01 09:09:00 36.89 Roxanne [facility] Body height 2020-04-01 05:45:00 152.4 cm [facility] Body weight 2020-04-01 05:45:00 54.432 kg [facility] BMI 2020-04-01 05:45:00 23.44 kg/m2 [facility] BP Diastolic 2020-02-01 00:00:00 62 mm[Hg] [facility] Height 2020-02-01 00:00:00 61 [in_i] [facility] BMI (Body Mass 2020-02-01 00:00:00 22.9 kg/m2 [place] 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 Index) [facility] BP Systolic 2020-02-01 00:00:00 106 mm[Hg] [facility] Body Weight 2020-02-01 00:00:00 1942 [oz_av] [facility] BP Diastolic 2020-01-04 00:00:00 64 mm[Hg] [place] [facility] Height 2020-01-04 00:00:00 61 [in_i] [place] [facility] BMI (Body Mass 2020-01-04 00:00:00 22.5 kg/m2 [place] 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) [facility] BP Systolic 2019-12-07 00:00:00 122 mm[Hg] [facility] [facility] Body Weight 2019-12-07 00:00:00 1974 [oz_av] [facility] BP Diastolic 2019-11-30 00:00:00 68 mm[Hg] [facility] Height 2019-11-30 00:00:00 61 [in_i] [place] [facility] BMI (Body Mass 2019-11-30 00:00:00 22.7 kg/m2 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 Index[facility] BP Systolic 2019-11-30 00:00:00 114 mm[Hg] [facility] Body Weight 2019-11-30 00:00:00 1923 [oz_av] [facility] Systolic blood 2019-08-18 08:21:00 125 mm[Hg] Univer sity of [facility] Diastolic blood 2019-08-18 08:21:00 63 mm[facility]Hg[facility] 2019-08-18 08:21:00 73 /min [facility] Body temperature 2019-08-18 08:21:00 37.11 Roxanne [facility] 2019-08-18 08:21:00 20 /min [facility] Body height 2019-08-18 08:21:00 154.9 cm [facility] Body weight 2019-08-18 08:21:00 58.968 kg [facility] BMI 2019-08-18 08:21:00 24.56 kg/m2 [facility] Oxygen saturation in 2019-08-18 08:21:00 100 /min University Arterial blood by [facility] Pulse oximetry Branch Procedures Procedure Date / Time Performing Clinician Source Performed US, transvaginal 2020-09-12 00:00:00 [facility] CHEST PULMONARY 2020-04-01 07:54:16 Rodrigo Brewster [facility] ANGIOGRAM Medical Branch D-DIMER 2020-04-01 07:00:00 Rodrigo Brewster [facility] POCT TEST 2020-04-01 06:45:00 Rodrigo Brewster [facility] BLOOD CULTURE SCREEN 2020-04-01 06:38:00 Rodrigo Brewster [facility] TROPONIN I 2020-04-01 06:27:00 Rodrigo Brewster [facility] COMP. METABOLIC PANEL 2020-04-01 06:27:00 Rodrigo Brewster [facility] ([id number]) [facility] CBC WITH DIFF 2020-04-01 06:27:00 Rodrigo Brewster [facility] URINALYSIS 2020-04-01 06:27:00 Rodrigo Brewster [facility] COVID-19 (ID NOW RAPID 2020-04-01 06:27:00 Rodrigo Brewster [facility] TESTING) [facility] LACTIC ACID WHOLE BLOOD 2020-04-01 06:26:00 Rodrigo Brewster [facility] CONSENT/REFUSAL FOR 2020-04-01 05:34:16 Doctor Unassigned, No Un [facility] DIAGNOSIS AND TREATMENT [facility] XR SHOULDER <2 VW RIGHT 2019-08-18 09:03:52 Kayode Palacios [facility] ASSIGNMENT OF BENEFITS 2019-08-18 08:11:25 Doctor Unassigned, No [facility] Name [facility] Procedure on Heart Point [facility] Encounters Start End Encounter Admission Attending Care Care Encounter Source Date/Time Date/Time Type Type Clinicians Facility Department ID 2020-12-29 Emergency [facility] [id number] [facility] Emergency [facility] [id number] Univers 20:46:50 ity of [facility] 2021-05-24 2021-05-24 Outpatient [facility] [id number] [place] 05:47:00 05:47:00 [facility] 2021-04-24 2021-04-24 Outpatient AM[facility]EN_[facility] 109 [id number] [place] 02:44:00 02:44:00 [facility] 2021-04-19 2021-04-19 Outpatient [facility] 109 [place] 11:41:00 11:41:00 [facility] 2021-04-19 2021-04-19 Stefan KUO [place] - [id number] [place] 00:00:00 00:00:00 MD Robert: Karen cat [id number] [facility] op [address] [facility] [address], [facility] Program [id number] , Ph. 2020-10-12 2020-10-12 Outpatient AMBREEN_[facility]AR [facility] 109 [id number] [place] 12:11:00 12:11:00 HANA [id number] [facility] 2020-10-12 2020-10-12 Stefan [place] - [id number] [place] 00:00:00 00:00:00 MD Robert: Karen cat 1700 [facility] Episco p Ramos [facility] Outre [id number] h , Ph. Program ([id number]) 2020-09-12 2020-09-12 Outpatient AMBREEN_FAR ALHOP [facility] 109 [id number]- [place] 05:10:00 05:10:00 HANA [id number] [facility] 2020-09-12 2020-09-12 Ely Mayers [facility] [place] - [id number] M atagor 00:00:00 00:00:00 JEFE Pacheco: Karen cat [id number] [place] [facility] 59 [facility] [place] Program [id number] , Ph. 2020-08-29 2020-08-29 Outpatient AMBREEN_FAR ME[facility] [id number] [place] 04:15:00 04:15:00 HANA [id number] [facility] 2020-08-29 2020-08-29 Long [place] - [id number] M atagor 00:00:00 00:00:00 Karen Day METAL BURRER: [id number] [facility] Epi scop [place] 59 [facility] [place] [facility] [id number] , Ph. 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 Program ([id number]) 2020-06-27 2020-06-27 Outpatient AMBREEN_FAR [facility] ME[facility] 109 [id number]- [place] 01:05:00 01:05:00 HANA [id number] [facility] 2020 2020 Outpatient AMBREEN_FAR [facility] ME[facility]OP 109 [place] 04:43:00 04:43:00 HANA [id number] [facility] 2020 2020 Long [facility] [place] - [id number] atagor 00:00:00 00:00:00 Karen Day da METAL BURRER: [id number] [facility] Epi scop [place] 59 [facility] [address], [facility] [place] Program [id number] , Ph. 2020-05-24 2020-05-24 Outpatient AMBREEN_FAR MEHOP ALHOP 109 [place] 02:37:00 02:37:00 HANA [id number] [facility] 2020-05-24 2020-05-24 Outpatient AMBREEN_FAR MEHOP ALHOP 109 [place] 02:37:00 02:37:00 HANA [id number] [facility] 2020-05-24 2020-05-24 Long [facility] [place] - [id number] atagor 00:00:00 00:00:00 Karen Day da METAL BURRER: [id number] [facility] Epi scop [place] 59 [facility] [place] Program [id number] , Ph. 2020-05-21 2020-05-21 Outpatient AM[facility]EN_[facility] [id number] [place] 02:03:00 02:03:00 HANA [id number] [facility] 2020-05-04 2020-05-04 Outpatient AMBREEN_FAR [facility] 109 [id number]- [place] 12:25:00 12:25:00 HANA [id number] [facility] 2020-05-04 2020-05-04 Outpatient AMBREEN_FAR [facility] 109 [id number] [place] 12:25:00 12:25:00 HANA [id number] [facility] 2020-05-04 2020-05-04 Stefan [facility] [place] - [id number] [place] 00:00:00 00:00:00 MD Robert: Karen cat [id number] [facility] 59 [facility] [address], [place] Program [id number] , Ph. 2020-04-19 2020-04-19 Outpatient [facility] 109 [id number]- [place] 02:35:00 02:35:00 KYLE [id number] da [facility] Program 2020-04-04 2020-04-04 Emergency [facility] [id number] 16:55:00 18:45:00 Petra Reed [id number] [place] [id number] [place] [id number] 084 2020-04-04 2020-04-04 Emergency [facility] [id number] [facility] 16:55:00 18:45:00 Petra Reed [id number] i ty of [place] [id number] [facility] s [place] [id number] [place] [id number] Branch 2020-04-02 2020-04-02 Letter OG [place] [id number] Univers 00:00:00 00:00:00 (Out) Julieth ELY [id number] it y of [facility] [id number] Cory as [id number] [facility] 019 Branch 2020-04-02 2020-04-02 OG Edwards [id number] 00:00:00 00:00:00 (Out) Julieth ELY [id number] [facility] [id number] 2020-03-31 2020-04-01 Emergency Rodrigo Brewster [facility] [id number] Univers 23:53:00 05:34:00 [place] Reed [id number] i ty of [place] [id number] [facility] [place] [id number] [place] [address] Branch 2020-03-31 2020-04-01 Emergency Rodrigo Brewster [facility] [id number] 23:53:00 05:34:00 [place] [id number] [place] [id number] [place] [id number] 084 2020-03-14 2020-03-14 Outpatient AMBREEN_FAR [facility] 109 [id number] [place] 01:03:00 01:03:00 KYLE [id number] [facility] 2020-03-08 2020-03-08 Outpatient AMBREEN_FAR [facility] 109 [id number] [place] 10:25:00 10:25:00 KYLE [id number] [facility] 2020-03-07 2020-03-07 Outpatient AMBREEN_FAR [facility] 109 879- [place] 05:07:00 05:07:00 KYLE [id number] [facility] 2020-03-07 2020-03-07 Long [facility] [place] - [id number] M atagor 00:00:00 00:00:00 Karen Day da METAL BURRER: [id number] [facility] Epi scop [place] 59 [facility] [place] Program [id number] , Ph. 2020-02-29 2020-02-29 Outpatient AMBREEN_[facility]AR [facility] 109 879- [place] 05:13:00 05:13:00 KYLE 91610 [facility] 2020-02-29 2020-02-29 Long [place] - [id number] M atagor 00:00:00 00:00:00 Karne Day da METAL BURRER: 32312 Synagogue Epi scop US 59 [facility] [place] Program [address] , Ph. 2020-02-22 2020-02-22 Outpatient AMBREEN_FAR [facility] ME[facility] 109 879- [place] 04:29:00 04:29:00 HANA 13991 [facility] 2020-02-22 2020-02-22 Long [facility] [place] - [id number] atagor 00:00:00 00:00:00 Karen Day da METAL BURRER: 51202 Synagogue Epi scop US 59 [facility] [address], [facility] [place] Program [address] , Ph. 2020-02-09 2020-02-09 Outpatient AMBREEN_[facility] 109 879 [place] 02:35:00 02:35:00 HANA 29929 [facility] 2020-02-08 2020-02-08 Outpatient AMBREEN_FAR [facility] 109 879 [place] 05:05:00 05:05:00 HANA 84562 [facility] 2020-02-08 2020-02-08 Long [place] - [id number] at[place]or 00:00:00 00:00:00 Karen Day da METAL BURRER: 61455 Synagogue Epi scop US 59 [facility] [address], [facility] [place] Program [address] , Ph. 2020-02-05 2020-02-05 [facility] 1.2.840.114 [id number] Univers 00:00:00 00:00:00 [facility] 350.1.13.10 it y of [place] 4.2.7.2.686 Cory as Pres[place] [phone] [facility] [address] Office Building 2020-02-05 2020-02-05 [facility] 1.2.840.114 [id number] 64 00:00:00 00:00:00 Amyn [facility] 350.1.13.10 [place] 4.2.7.2.686 [place] [phone] [facility] Office Building 2020-02-01 2020-02-01 Outpatient AMBREEN_FAR [facility] 109 879 [place] 05:01:00 05:01:00 HANA 17422 [facility] 2020-02-01 2020-02-01 Ely Mayers [facility] [place] - [id number] M atagor 00:00:00 00:00:00 JEFE Pacheco: Karen cat 11623 Synagogue Episc op 59 [facility] [address], [place] Program [address] , Ph. 2020-01-31 2020-01-31 Refill Victoria, [facility] 1.2.840.114 [id number] Univers 00:00:00 00:00:00 Amyn [facility] 350.1.13.10 it y of [place] 4.2.7.2.686 Cory as [place] [phone] [place] [address] Branch Office Building 2020-01-31 2020-01-31 Refill Victoria, [facility] 1.2.840.114 [id number] 17 00:00:00 00:00:00 [facility] 350.1.13.10 [place] 4.2.7.2.686 [place] [phone] [place] [address] Office Building 2020-01-20 2020-01-20 Outpatient [facility] [phone] [place] 02:18:00 02:18:00 KYLE 50565 [facility] 2020-01-19 2020-01-19 Refill Victoria, [facility] 1.2.840.114 [id number] Univers 00:00:00 00:00:00 Amyn [facility] 350.1.13.10 it y of [place] 4.2.7.2.686 Cory as [place] [phone] [place] [address] Branch Office Building 2020-01-19 2020-01-19 Refill Victoria, [facility] 1.2.840.114 [id number] 00:00:00 00:00:00 [facility] 350.1.13.10 [place] 4.2.7.2.686 [place] [phone] [place] [address] Office Building 2020-01-16 2020-01-16 Cecilia Hein [facility] 1.2.840.114 [id number] Univers 00:00:00 00:00:00 Management M Health 350.1.13.10 ity of [place].2.686 [place] [id number] [address] Office Building 2020-01-16 2020-01-16 Cecilia Hein [facility] 1.2.840.114 [id number] 00:00:00 00:00:00 Management M Health 350.1.13.10 Clear 4.2.7.2.686 [place] [phone] [place] [address] Office Building 2020-01-13 2020-01-13 Cecilia Hein [facility] 1.2.840.114 [id number] 00:00:00 00:00:00 Management M Health 350.1.13.10 Clear 4.2.7.2.686 [place] [phone] [place] [address] Office Building 2020-01-13 2020-01-13 Cecilia Hein [facility] 1.2.840.114 [id number] Univers 00:00:00 00:00:00 Management M Health 350.1.13.10 ity [place] [phone] [address] Office Building 2020-01-11 2020-01-11 Outpatient [facility] [phone] [place] 03:04:00 03:04:00 KYLE 96407 [facility] 2020-01-11 2020-01-11 [facility] [place] - [id number] M atagor 00:00:00 00:00:00 Karen Day METAL BURRER: 54305 Synagogue Epi scop US 59 [facility] Health [address], [place] Program [address] , Ph. 2020-01-10 2020-01-10 DEVON Lamas 1.2.840.114 [id number] 00:00:00 00:00:00 Management [facility] 350.1.13.10 [place] 4.2.7.2.686 [place] [phone] [place] [address] Office Building 2020-01-10 2020-01-10 Juan DEVON Kessler 1.2.840.114 [id number] Univers 00:00:00 00:00:00 [facility] 350.1.13.10 ity of [place] 4.2.7.2.686 Cory as [place] [phone] [address] Office [facility] 2020-01-04 2020-01-04 Outpatient [facility] 109 9 [place] 05:02:00 05:02:00 HANA 68786 [facility] 2020-01-04 2020-01-04 Ely Mayers [facility] [place] - [id number] atagor 00:00:00 00:00:00 JEFE Pacheco: Karen de leon a [address] [place] Synagogue Episc op 59 [facility] A, [facility] [place] Program [address] , Ph. 2019-12-29 2019-12-29 [facility] 1.2.840.114 [id number] Univers 00:00:00 00:00:00 [facility] 350.1.13.10 it y of [place] 4.2.7.2.686 [place] as [place] [phone] [address] Office [facility] 2019-12-28 2019-12-28 [facility] 109 [facility] [place] 04:59:00 04:59:00 HANA 55450 [facility] 2019-12-28 2019-12-28 Long [facility] [place] - [id number] atagor 00:00:00 00:00:00 Karen Day METAL BURRER: 81450 Synagogue Epi scop US 59 [facility] [address], [facility] [place] Program [address] , Ph. 2019-12-27 2019-12-27 [facility] 1.2.840.114 [id number] Univers 00:00:00 00:00:00 Amyn SPECIALTY 350.1.13.10 ity of [place] 4.2.7.2.686 Cory as [place] [phone] [address] 2019-12-23 2019-12-23 Outpatient AMBREEN_FAR MEHOP ALHOP [phone] [place] 05:19:00 05:19:00 HANA 28901 [facility] 2019-12-23 2019-12-23 Stefan Mayers [facility] [place] - [id number] [place] 00:00:00 00:00:00 MD Robert: Karen cat [address] [place] Synagogue Episc op 59 [facility] [address], [facility] [place] Program [address] , Ph. 2019-12-21 2019-12-21 Outpatient [facility]BREEN_FAR [facility] 109 879- [place] 02:10:00 02:10:00 HANA 06662 [facility] 2019-12-21 2019-12-21 Long [facility] [place] - [id number] M at[place]or 00:00:00 00:00:00 Karen Day da METAL BURRER: 12744 Synagogue Epi scop US 59 [facility] [address], [facility] [place] Program [address] , Ph. 2019-12-14 2019-12-14 Outpatient [facility]AR [facility] [phone] [place] 03:55:00 03:55:00 HANA 55994 [facility] 2019-12-14 2019-12-14 Long [facility] [place] - [id number] M at[place]or 00:00:00 00:00:00 Karen Day da METAL BURRER: 12440 Synagogue Epi scop US 59 [facility] A, [facility] [place] Program [address] , Ph. 2019-12-07 2019-12-07 Outpatient AMBREEN_FAR ALHOP ALHOP 109 [id number] [place] 05:18:00 05:18:00 HANA 93589 [facility] 2019-12-07 2019-12-07 Long [place] - [id number] M at[place]or 00:00:00 00:00:00 Karen Day METAL BURRER: 95697 Synagogue Epi scop US 59 [facility] A, [facility] [place] Program [address] , Ph. 2019-11-30 2019-11-30 Outpatient AMBREEN_FAR MEHOP MEHOP [phone] [place] 05:22:00 05:22:00 HANA 57156 [facility] 2019-11-30 2019-11-30 Ely [place] - [id number] M at[place]or 00:00:00 00:00:00 JEFE Pacheco: Karen cat 41427 Synagogue Episc op 59 [facility] A, [facility] [place] Program [address] , Ph. 2019-11-23 2019-11-23 Outpatient AMBREEN_FAR MEHOP MEHOP [phone] [place] 05:19:00 05:19:00 HANA 98810 [facility] 2019-11-23 2019-11-23 Long [place] - [id number] [place]or 00:00:00 00:00:00 Karen Day METAL BURRER: 39138 Synagogue Epi scop US 59 [facility] A, [facility] [place] Program [address] , Ph. 2019-11-22 2019-11-22 Outpatient AMBREEN_FAR MEHOP MEHOP [phone] [place] 11:01:00 11:01:00 HANA 03376 [facility] 2019-11-16 2019-11-16 Outpatient AMBREEN_FAR MEHOP MEHOP [phone] [place] 02:26:00 02:26:00 HANA 68569 [facility] 2019-11-16 2019-11-16 Long [place] - [id number] M [place] 00:00:00 00:00:00 Maximiliano [place] da METAL BURRER: 55452 Synagogue Epi scop US 59 [facility] [place] Program [address] , Ph. 2019-11-02 2019-11-02 Outpatient AMBREEN_FAR MEHOP [facility] [phone] [place] 02:07:00 02:07:00 HANA 92983 [facility] 2019-11-02 2019-11-02 Long [place] - [id number] [place] 00:00:00 00:00:00 DayMaximiliano hayesPoint da METAL BURRER: 19250 Synagogue Epi scop US 59 [facility] [place] Program [address] , Ph. 2019-10-26 2019-10-26 Outpatient [facility]BREEN_FAR [facility] 109 879 [place] 02:40:00 02:40:00 HANA 36671 [facility] 2019-10-26 2019-10-26 Long [place] - [id number] [place] 00:00:00 00:00:00 Maximiliano [place] da METAL BURRER: 41542 Synagogue Epi scop US 59 [facility] [place] Program [address] , Ph. 2019-10-24 2019-10-24 Outpatient AMBREEN_FAR MEHOP [facility] 109 879 [place] 01:15:00 01:15:00 HANA 24546 [facility] 2019-10-20 2019-10-20 Outpatient AMBREEN_FAR MEHOP ALHOP 109 879 [place] 03:07:00 03:07:00 HANA 91961 [facility] 2019-09-22 2019-09-22 True Kessler [facility] 1.2.840.114 [id number] Univers 00:00:00 00:00:00 Amyn SPECIALTY 350.1.13.10 ity of Critical access hospital 4.2.7.2.686 Cory as COLONY [phone] [facility] [address] [place] 2019-08-18 2019-08-18 Emergency [facility] 1.2.384.017 [id number] Univers 03:26:36 04:39:00 Kayode Reed 350.1.13.10 i ty of [place]2.7.2.686 [place] [phone] [facility] [address] 2019-08-18 2019-08-18 Emergency X [facility] ERT [id number] Univers 03:26:36 04:39:00 KAYODE ity of [facility] 2019-08-18 2019-08-18 Orders Doctor FOLEY 1.2.840.114 [id number] Univers 00:00:00 00:00:00 Only Unassigned, SOLIS 350.1.13.10 ity of [place] [facility] 4.2.7.2.686 Cory as [phone] [place] [address] Branch 2019-08-13 2019-08-13 [facility] 1.2.840.114 [id number] Univers 00:00:00 00:00:00 Amyn SPECIALTY 350.1.13.10 ity of Critical access hospital 4.2.7.2.686 [place] as [place] [id number] [address] 2019-07-25 2019-07-25 Refkvng Kessler [facility] 1.2.840.114 [id number] Univers 00:00:00 00:00:00 Amyn SPECIALTY 350.1.13.10 ity of Critical access hospital 4.2.7.2.686 [place] as [place] [id number] [address] 2019-06-29 2019-06-29 Refkvng Kessler [facility] 1.2.840.114 [id number] Univers 00:00:00 00:00:00 Amyn SPECIALTY 350.1.13.10 ity of Critical access hospital 4.2.7.2.686 [place] as [place] [phone] [address] 2019-05-29 2019-05-29 Refkvng Kessler [facility] 1.2.840.114 [id number] Univers 00:00:00 00:00:00 Amyn SPECIALTY 350.1.13.10 ity of Critical access hospital 4.2.7.2.686 [place] as [place] [id number] [address] 2018-10-26 2018-10-26 True Kessler [facility] 1.2.840.114 [id number] Univers 00:00:00 00:00:00 Amyn SPECIALTY 350.1.13.10 ity of Critical access hospital 4.2.7.2.686 [place] as [place] [id number] [address] Results Test Description Test Time Test Comments Results Result Comments Source Acute hepatitis 1999 panel - Serum 2020-09-13 00:00:00 Test Item Value Reference Range Interpretation Comme nts Hepatitis A virus IgM Ab [Presence] in Serum or Plasma non-r eactive non-reactive by Immunoassay (test code = 30756-0) Hepatitis B virus surface Ag [Presence] in Serum or non-reactive no n-reactive Plasma by Immunoassay (test code = 5196-1) Hepatitis B virus core IgM Ab [Presence] in Serum or non-reactive n on-reactive Plasma by Immunoassay (test code = 32867-1) Hepatitis C virus Ab [Presence] in Serum or Plasma by non-reacti ve non-reactive Immunoassay (test code = 30230-0) Hepatitis C virus Ab Signal/Cutoff in Serum or Plasma 0.02 <1.00 by Immunoassay (test code = 99144-9) [facility]1 p24 Ag [Presence] in Serum or Plasma by [id number] 00:00:00 Test Item Value Reference Range Interpretation Comments HIV 1+2 Ab+HIV1 p24 Ag non-reactive non-reactive [Presence] in Serum or Plasma by Immunoassay (test code = 00328-2) [facility] 1999 panel - Serum or [id number] 00:00:00 Test Item Value Reference Range Interpretation Comments Glucose [Mass/volume] 90 mg/dL 65-99 in Serum or Plasma (test code = 2345-7) Urea nitrogen 12 mg/dL 7-25 [Mass/volume] in Serum or Plasma (test code = 3094-0) Creatinine 0.69 mg/dL 0.50-1.10 [Mass/volume] in Serum or Plasma (test code = 2160-0) Glomerular filtration 123 See_Comment [Auto mated rate/1.73 sq mL/min/1.73m2 message] The M.predicted among system [facility] non-blacks [Volume generated this Rate/Area] in Serum, result Plasma or Blood by transmitt ed Creatinine-based reference r oliva: formula (CKD-EPI) > or = 60. The (test code = 73357-4) refere nce range was not used to interpret this result as normal/abnormal . Glomerular filtration 142 See_Comment [Auto mated rate/1.73 sq mL/min/1.73m2 message] The M.predicted among system [facility] blacks [Volume generated thi s Rate/Area] in Serum, result Plasma or Blood by transmitt ed Creatinine-based reference r oliva: formula (CKD-EPI) > or = 60. The (test code = 23903-8) refere nce range was not used to [...] in Serum or Plasma (test code = 42909-7) Protein [Mass/volume] 7.0 g/dL 6.1-8.1 in Serum or Plasma (test code = 2885-2) Albumin [Mass/volume] 4.4 g/dL 3.6-5.1 in Serum or Plasma (test code = 1751-7) Globulin [Mass/volume] 2.6 g/dL (calc) 1.9-3.7 in Serum by calculation (test code = 22780-4) Albumin/Globulin [Mass 1.7 (calc) 1.0-2.5 Ratio] in Serum or Plasma (test code = 1759-0) Bilirubin.total 0.6 mg/dL 0.2-1.2 [Mass/volume] in Serum or Plasma (test code = 1974-2) Alkaline phosphatase 104 U/L 31-125 [Enzymatic activity/volume] in Serum or Plasma (test code = 6768-6) Aspartate 18 U/L 10-30 aminotransferase [Enzymatic activity/volume] in Serum or Plasma (test code = 1920-8) Alanine 17 U/L 6-29 aminotransferase [Enzymatic activity/volume] in Serum or Plasma (test code = 1742-6) [facility] W Auto Differential panel - [...] = 776-5) Neutrophils [#/volume] in 2473 cells/uL 0466-0962 Blood by Automated count (test code = [...] by Automated count (test code = 706-2) [facility] [Units/volume] in Serum or Plasma by Detection limit <= 0.005 mIU/[id number] 00:00:00 Test Item Value Reference Range Interpretation Comments Thyrotropin [Units/volume] in 2.74 mIU/L Serum or Plasma (test code = 3016-3) [facility] [id number] 00:00:00 Test Item Value Reference Range Interpretation Comments Chlamydia trachomatis rRNA not detected not detected [Presence] in Unspecified specimen by ANSLEY with probe detection (test code = 76371-3) Neisseria gonorrhoeae rRNA not detected not detected [Presence] in Unspecified specimen by ANSLEY with probe detection (test code = 67050-0) comment (test code = comment) [facility] test, [id number] 00:00:00 Test Item Value Reference Range Interpretation Comments Choriogonadotropin.beta subunit negative negative ( test) [Presence] in Urine (test code = 2112-1) [facility] Ab [Presence] in Serum by RPR 2020-09-13 00:00:00 Test Item Value Reference Range Interpretation Comments Reagin Ab [Presence] in Serum by non-reactive non-reactive RPR (test code = 43146-1) [facility] 2020-04-01 08:59:58Impression: No CTA [...] versus viral respiratory illness. RL: 460 AFC: 74945 Electronically sig yasmeen by Belkis Perry MD, [...] mild pulmonary edema versus viral respiratory illness.RL: 460AF: 36292Sfaztbvxcjjgta signed by Belkis Perry MD, PhD at 04/01/2020 2:59 [facility] WestD-[id number] 07:22:00 Test Item Value Reference Interpretation Comments Range D-DIMER (test code = See_Comment H [Autom ated [id number]) message] The system which generated this result [...] diagnosis. Lab Interpretation Abnormal (test code = 75045-4) [facility] WestTRMYLABryson [id number] 07:13:00 Test Item Value Reference Range Interpretation Comments TROPONIN I (test <0.012 See_Comment [Automated code = 6832642835) message] The system which generated this result [...] ? Lab Interpretation Normal (test code = 68269-1) [facility]COVID-19 (ID NOW RAPID TESTING)2020-04-01 07:12:00 Test Item Value Reference Range Interpretation Comments SARS-CoV-2 Rapid ID NOW Not Detected Not Detected (test code = 86685-4) SUSANNA (test code = SUSANNA) ID NOW COVID-19 Assay is an isothermal nucleic acid amplification test intended for the qualitative detection of nucleic acid from SARS-CoV-2 viral RNA in nasopharyngeal (RESHIPPING CLERK) specimens. It is used under Emergency Use [...] indicated. Lab Interpretation Normal (test code = 25013-0) [facility]. METABOLIC PANEL (58311)2020-04-01 07:01:00 Test Item Value Reference Range Interpretation Comments NA (test code = 137 mmol/L 135-145 8357432854) K (test code = 3.9 mmol/L 3.5-5 4935615474) CL (test code = 106 mmol/L 98-108 4088503272) CO2 TOTAL (test code = 22 mmol/L 23-31 L 8011822525) AGAP (test code = 2-16 8815144527) BUN (test code = 10 mg/dL 7-23 1604214490) GLUCOSE (test code = 116 mg/dL 70-110 H 1092887497) CREATININE (test code = 0.59 mg/dL 0.5-1.04 4024240202) TOTAL BILI (test code = 0.7 mg/dL 0.1-1.4 8403391451) CALCIUM (test code = 9.1 mg/dL 8.6-10.6 3213875480) T PROTEIN (test code = 7.2 g/dL 6.3-8.2 6339574394) ALBUMIN (test code = 4.1 g/dL 3.5-5 8954536303) ALK PHOS (test code = 106 U/L 34-122 8717624997) ALTv (test code = 15 U/L 5-35 1742-6) AST(SGOT) (test code = 22 U/L 13-40 8975874332) eGFR Calculation mL/min/1.73m2 (Non-) (test code = 3853592947) eGFR Calculation mL/min/1.73m2 () (test code = 7887188467) SUSANNA (test code = SUSANNA) Association of [...] tests). Lab Interpretation Abnormal (test code = 53218-6) [facility] WestURINALYSIS2021-01-31 07:00:00 Test Item Value Reference Range Interpretation Comments APPEARANCE (test code = Hazy Clear A 9909920795) COLOR (test code = Yellow Yellow 2892266260) PH (test code = 4.8-8.0 9356934152) SP GRAVITY (test code = 1.003-1.030 9774424285) GLU U QUAL (test code = Normal Normal 2569852859) BLOOD (test code = 3+ Negative A 8485818107) KETONES (test code = Negative Negative 8663639426) PROTEIN (test code = Negative Negative 2887-8) UROBILIN (test code = Normal Normal 1575301258) BILIRUBIN (test code = Negative Negative 2303855567) NITRITE (test code = Negative Negative 5327586455) LEUK YVAN (test code = Negative Negative 2132327398) RBC/HPF (test code = See_Comment H [Autom ated message] 7352244982) The system [employer] generated this result transmitted ref erence range: 0 - 3 HP F. The reference range was not used to int erpret this result as normal/abnormal . WBC/HPF (test code = See_Comment [Autom ated message] 2061398827) The system [employer] generated this result transmitted ref erence range: 0 - 5 HP F. The reference range was not used to int erpret this result as normal/abnormal . BACTERIA (test code = Few Negative A 7334642651) SQ EPITH (test code = HPF 9945333678) Lab Interpretation (test Abnormal code = 25619-9) [facility] WITH [id number] 06:49:00 Test Item Value Reference Range Interpretation Comments WBC (test code = See_Comment L [Automated 6690-2) message] The sy stem which generated this result transmitted reference range : 4.30 - 11.10 10*3/?L. The reference range was not used to interpret this result as normal/abnormal . RBC (test code = See_Comment L [Automated 789-8) message] The sy stem which generated this [...] RDW-SD (test code = 41.0 fL 39-49.9 02156-1) RDW-CV (test code = 12.6 % 12-15.5 788-0) PLT (test code = See_Comment L [Automated 777-3) message] The sy stem which generated this result transmitted reference range : 166 - 358 10*3/ ?L. The reference r oliva was not used to interpret this result as normal/abnormal . MPV (test code = 11.9 fL 9.5-12.9 31586-8) NRBC/100 WBC (test See_Comment [Automat ed code = 2404062453) message] The system which generated this result transmitted reference range : 0.0 - 10.0 /100 WBCs. The refer ence range was not u sed to interpret th is result as normal/abnormal . NRBC x10^3 (test code <0.01 See_Comment [Auto mated = 4824459483) message] The s ystem which generated this result transmitted reference range : 10*3/?L. The reference range was not used to interpret this result as normal/abnormal . GRAN MAT (NEUT) % 75.2 % (test code = 770-8) IMM GRAN % (test code 0.20 % = 5356774098) LYMPH % (test code = 13.3 % 736-9) MONO % (test code = 9.1 % 5905-5) EOS % (test code = 2.0 % 713-8) BASO % (test code = 0.2 % 706-2) GRAN MAT x10^3(ANC) 3.04 10*3/uL 1.88-7.09 (test code = 6166478786) IMM GRAN x10^3 (test <0.03 0-0.06 code = 8548647667) LYMPH x10^3 (test code 0.54 10*3/uL 1.32-3.29 L = 731-0) MONO x10^3 (test code 0.37 10*3/uL 0.33-0.92 = 742-7) EOS x10^3 (test code = 0.08 10*3/uL 0.03-0.39 711-2) BASO x10^3 (test code <0.03 0.01-0.07 = 704-7) Lab Interpretation Abnormal (test code = 23273-8) [facility] [id number] 06:45:00 Test Item Value Reference Range Interpretation Comments POCT PREG (test code = 1605) negative On board controls acceptable with positive C Line (test code = 3574) POCT PREG LOT # (test code = 3575) [id number] POCT PREG TEST DATE (test 10-30-2021 code = 3576) Lab Interpretation (test code = Normal 69295-5) [facility] WestLadcic Acid Whole [id number] 06:35:00 Test Item Value Reference Range Interpretation Comments LACTIC ACID (test code = 1.27 mmol/L 0.5-2.2 0889513021) Lab Interpretation (test code = Normal 60905-9) [facility] WestUrinalysis complete W Reflex Culture panel - [id number] 00:00:00 Test Item Value Reference Range Interpretation [...] (test code = 5-10 0-10 epithelial cells) [facility] Program[facility] 1996 panel - Serum or Plasma 2019-12-01 [...] = 1.61 ratio <3.22 risk ratio LDL/HDL) [facility] Auto Differential panel - [...] code = 156 K/uL 130-400 platelet count) [facility] CenterCom[facility] 2000 panel - Serum or [id number] 00:00:00 Test Item Value Reference Range Interpretation [...] (test code = ALT) 26 U/L 5-40 [facility] CenterThyrotropin [Units/volume] in Serum or [id number] 00:00:00 Test Item Value Reference Range Interpretation Comments TSH, third generation (test code 1.810 uIU/mL 0.400-4.100 = TSH, third generation) [facility] CenterReagin Ab [Presence] in Serum by RPR 2019-12-01 00:00:00 Test Item Value Reference Range Interpretation Comments RPR result (test code = RPR non-reactive non-reactive result) RPR titer (test code = RPR not indic. not indic. titer) [facility] - Platelet poor plasma by Coagulation [id number] 00:00:00 Test Item Value Reference Range Interpretation Comments prothrombin time (PT) (test code 13.9 seconds 12.5-14.7 = prothrombin time (PT)) INR (test code = INR) 1.0 see below PTT (test code = PTT) 30.1 seconds 25.2-40.0 [facility]HIV [facility]2 Ab [Presence] in Serum or Plasma by [id number] 00:00:00 Test Item Value Reference Range Interpretation Comments HIV 1/2 4TH gen, rflx conf (test non-reactive non-reactive code = HIV 1/2 4TH gen, rflx conf) [facility]Ac[facility] 2000 [facility] - Serum [...] (note) (test code = interpretation hepatitis C:) [facility] CenterChlamydia trachomatis+Neisseria gonorrhoeae DNA [Presence] in Urine by ANSLEY with probe [id number] 00:00:00 Test Item Value Reference Range Interpretation Comments gonorrhea, tma (test code = negative negative gonorrhea, tma) chlamydia, tma (test code = negative negative chlamydia, tma) [facility] CenterUrinalysis complete W Reflex Culture panel - [id number] 00:00:00 Test Item Value Reference Range Interpretation [...] (test code = 5-10 0-10 epithelial cells) [facility] CenterLipid 1996 panel - Serum or [...] = 1.61 ratio <3.22 risk ratio LDL/HDL) [facility]CBC W Auto Differential panel - [...] code = 156 K/uL 130-400 platelet count) [facility] CenterComprehensive metabolic 1999 panel - Serum or [id number] 00:00:00 Test Item Value Reference Range Interpretation [...] (test code = ALT) 26 U/L 5-40 [facility] CenterThyrotropin [Units/volume] in Serum or [id number] 00:00:00 Test Item Value Reference Range Interpretation Comments TSH, third generation (test code 1.810 uIU/mL 0.400-4.100 = TSH, third generation) [facility] CenterReagin Ab [Presence] in Serum by RPR 2019-12-01 00:00:00 Test Item Value Reference Range Interpretation Comments RPR result (test code = RPR non-reactive non-reactive result) RPR titer (test code = RPR not indic. not indic. titer) [facility]PT [facility] - Platelet poor plasma by Coagulation [id number] 00:00:00 Test Item Value Reference Range Interpretation Comments prothrombin time (PT) (test code 13.9 seconds 12.5-14.7 = prothrombin time (PT)) INR (test code = INR) 1.0 see below PTT (test code = PTT) 30.1 seconds 25.2-40.0 [facility]HIV [facility]+2 Ab [Presence] in Serum or Plasma by [id number] 00:00:00 Test Item Value Reference Range Interpretation Comments HIV 1/2 4TH gen, rflx conf (test non-reactive non-reactive code = HIV 1/2 4TH gen, rflx conf) [facility] CenterAc[facility] 2000 [facility] - Serum [...] (note) (test code = interpretation hepatitis C:) [facility] CenterChlamydia trachomatis+Neisseria gonorrhoeae DNA [Presence] in Urine by ANSLEY with probe [id number] 00:00:00 Test Item Value Reference Range Interpretation Comments gonorrhea, tma (test code = negative negative gonorrhea, tma) chlamydia, tma (test code = negative negative chlamydia, tma) [facility] CenterUrinalysis complete W Reflex Culture panel - [id number] 00:00:00 Test Item Value Reference Range Interpretation [...] (test code = 5-10 0-10 epithelial cells) [facility] CenterLip[facility] 1996 panel - Serum or [...] = 1.61 ratio <3.22 risk ratio LDL/HDL) [facility]CBC [facility] Auto Differential [facility] - [...] code = 156 K/uL 130-400 platelet count) [facility] CenterComprehensive metabolic 2000 panel - Serum or [id number] 00:00:00 Test Item Value Reference Range Interpretation [...] (test code = ALT) 26 U/L 5-40 [facility] CenterThyrotropin [Units/volume] in Serum or [id number] 00:00:00 Test Item Value Reference Range Interpretation Comments TSH, third generation (test code 1.810 uIU/mL 0.400-4.100 = TSH, third generation) [facility] CenterReagin Ab [Presence] in Serum by RPR 2019-12-01 00:00:00 Test Item Value Reference Range Interpretation Comments RPR result (test code = RPR non-reactive non-reactive result) RPR titer (test code = RPR not indic. not indic. titer) [facility]PT [facility] - Platelet poor plasma by Coagulation [id number] 00:00:00 Test Item Value Reference Range Interpretation Comments prothrombin time (PT) (test code 13.9 seconds 12.5-14.7 = prothrombin time (PT)) INR (test code = INR) 1.0 see below PTT (test code = PTT) 30.1 seconds 25.2-40.0 [facility]HIV 1+2 Ab [Presence] in Serum or Plasma by [id number] 00:00:00 Test Item Value Reference Range Interpretation Comments HIV 1/2 4TH gen, rflx conf (test non-reactive non-reactive code = HIV 1/2 4TH gen, rflx conf) [facility] CenterAc[facility] 2000 panel - Serum [...] (note) (test code = interpretation hepatitis C:) [facility] CenterChlamydia trachomatis+Neisseria gonorrhoeae DNA [Presence] in Urine by ANSLEY with probe [id number] 00:00:00 Test Item Value Reference Range Interpretation Comments gonorrhea, tma (test code = negative negative gonorrhea, tma) chlamydia, tma (test code = negative negative chlamydia, tma) [facility] CenterUrinalysis complete W Reflex Culture panel - [id number] 00:00:00 Test Item Value Reference Range Interpretation [...] (test code = 5-10 0-10 epithelial cells) [facility] CenterLipid 1996 panel - Serum or [...] = 1.61 ratio <3.22 risk ratio LDL/HDL) [facility] CenterCBC W Auto Differential panel - [...] code = 156 K/uL 130-400 platelet count) [facility] CenterComprehensive metabolic 2000 panel - Serum or [id number] 00:00:00 Test Item Value Reference Range Interpretation [...] (test code = ALT) 26 U/L 5-40 [facility] CenterThyrotropin [Units/volume] in Serum or [id number] 00:00:00 Test Item Value Reference Range Interpretation Comments TSH, third generation (test code 1.810 uIU/mL 0.400-4.100 = TSH, third generation) [facility] CenterReagin Ab [Presence] in Serum by RPR 2019-12-01 00:00:00 Test Item Value Reference Range Interpretation Comments RPR result (test code = RPR non-reactive non-reactive result) RPR titer (test code = RPR not indic. not indic. titer) [facility]PT [facility]PTT [facility] - Platelet poor plasma by Coagulation [id number] 00:00:00 Test Item Value Reference Range Interpretation Comments prothrombin time (PT) (test code 13.9 seconds 12.5-14.7 = prothrombin time (PT)) INR (test code = INR) 1.0 see below PTT (test code = PTT) 30.1 seconds 25.2-40.0 [facility]HIV 1+2 Ab [Presence] in Serum or Plasma by [id number] 00:00:00 Test Item Value Reference Range Interpretation Comments HIV 1/2 4TH gen, rflx conf (test non-reactive non-reactive code = HIV 1/2 4TH gen, rflx conf) [facility] CenterAc[facility] 2000 panel - Serum [...] (note) (test code = interpretation hepatitis C:) [facility] CenterChlamydia trachomatis+Neisseria gonorrhoeae DNA [Presence] in Urine by ANSLEY with probe [id number] 00:00:00 Test Item Value Reference Range Interpretation Comments gonorrhea, tma (test code = negative negative gonorrhea, tma) chlamydia, tma (test code = negative negative chlamydia, tma) [facility] CenterUrinalysis complete W Reflex Culture panel - [id number] 00:00:00 Test Item Value Reference Range Interpretation [...] (test code = 5-10 0-10 epithelial cells) [facility] CenterLipid 1996 panel - Serum or [...] = 1.61 ratio <3.22 risk ratio LDL/HDL) [facility] CenterCBC W Auto Differential panel - [...] code = 156 K/uL 130-400 platelet count) [facility] 2000 panel - Serum or [id number] 00:00:00 Test Item Value Reference Range Interpretation [...] (test code = ALT) 26 U/L 5-40 [facility] CenterThyrotropin [Units/volume] in Serum or [id number] 00:00:00 Test Item Value Reference Range Interpretation Comments TSH, third generation (test code 1.810 uIU/mL 0.400-4.100 = TSH, third generation) [facility] CenterReagin Ab [Presence] in Serum by RPR 2019-12-01 00:00:00 Test Item Value Reference Range Interpretation Comments RPR result (test code = RPR non-reactive non-reactive result) RPR titer (test code = RPR not indic. not indic. titer) [facility] CenterPT [facility]PTT [facility] - Platelet poor plasma by Coagulation [id number] 00:00:00 Test Item Value Reference Range Interpretation Comments prothrombin time (PT) (test code 13.9 seconds 12.5-14.7 = prothrombin time (PT)) INR (test code = INR) 1.0 see below PTT (test code = PTT) 30.1 seconds 25.2-40.0 [facility]HIV 1+2 Ab [Presence] in Serum or Plasma by [id number] 00:00:00 Test Item Value Reference Range Interpretation Comments HIV 1/2 4TH gen, rflx conf (test non-reactive non-reactive code = HIV 1/2 4TH gen, rflx conf) [facility] CenterAc[facility] 2000 panel - Serum [...] (note) (test code = interpretation hepatitis C:) [facility] CenterChlamydia trachomatis+Neisseria gonorrhoeae DNA [Presence] in Urine by ANSLEY with probe [id number] 00:00:00 Test Item Value Reference Range Interpretation Comments gonorrhea, tma (test code = negative negative gonorrhea, tma) chlamydia, tma (test code = negative negative chlamydia, tma) [facility] CenterUrinalysis complete W Reflex Culture panel - [id number] 00:00:00 Test Item Value Reference Range Interpretation [...] tomated message] = urobilinogen) The system [facility] generated this result transmitted ref erence [...] (test 5-10 0-10 code = epithelial cells) [facility] CenterLipid 1996 panel - Serum or [...] = 1.61 ratio <3.22 risk ratio LDL/HDL) [facility] CenterCBC W Auto Differential panel - [...] code = 156 K/uL 130-400 platelet count) [facility] CenterComprehensive metabolic 2000 panel - Serum or [id number] 00:00:00 Test Item Value Reference Range Interpretation [...] [Automated message] (test code = The system [employer] h bilirubin, total) generated this result transmit denny reference range : <=1.2. The refe rence range was not u sed to interpret th is result as normal/abnormal . alkaline phosphatase 74 U/L 38-117 (test code = alkaline phosphatase) AST (test code = 24 U/L 9-40 AST) ALT (test code = 26 U/L 5-40 ALT) [facility] CenterThyrotropin [Units/volume] in Serum or [id number] 00:00:00 Test Item Value Reference Range Interpretation Comments TSH, third generation (test code 1.810 uIU/mL 0.400-4.100 = TSH, third generation) [facility] CenterReagin Ab [Presence] in Serum by RPR 2019-12-01 00:00:00 Test Item Value Reference Range Interpretation Comments RPR result (test code = RPR non-reactive non-reactive result) RPR titer (test code = RPR not indic. not indic. titer) [facility] CenterPT [facility] aPTT panel - Platelet poor plasma by Coagulation [id number] 00:00:00 Test Item Value Reference Range Interpretation Comments prothrombin time (PT) (test code 13.9 seconds 12.5-14.7 = prothrombin time (PT)) INR (test code = INR) 1.0 see below PTT (test code = PTT) 30.1 seconds 25.2-40.0 [facility]HIV 1+2 Ab [Presence] in Serum or Plasma by [id number] 00:00:00 Test Item Value Reference Range Interpretation Comments HIV 1/2 4TH gen, rflx conf (test non-reactive non-reactive code = HIV 1/2 4TH gen, rflx conf) [facility] CenterAc[facility] 2000 panel - Serum [...] (note) (test code = interpretation hepatitis C:) [facility] CenterChlamydia trachomatis+Neisseria gonorrhoeae DNA [Presence] in Urine by ANSLEY with probe [id number] 00:00:00 Test Item Value Reference Range Interpretation Comments gonorrhea, tma (test code = negative negative gonorrhea, tma) chlamydia, tma (test code = negative negative chlamydia, tma) [facility] Programpregnancy test, [id number] 11:52:00 Test Item Value Reference Range Interpretation Comments HCG (test code = HCG) negative [facility] Programpregnancy test, [id number] 11:52:00 Test Item Value Reference Range Interpretation Comments HCG (test code = HCG) negative [facility] Programpregnancy test, [id number] 11:52:00 Test Item Value Reference Range Interpretation Comments HCG (test code = HCG) negative [facility] Programpregnancy test, [id number] 11:52:00 Test Item Value Reference Range Interpretation Comments HCG (test code = HCG) negative [facility] Programpregnancy test, [id number] 11:52:00 Test Item Value Reference Range Interpretation Comments HCG (test code = HCG) negative [facility] Programpregnancy test, [id number] 11:52:00 Test Item Value Reference Range Interpretation Comments HCG (test code = HCG) negative [facility] Programpregnancy test, [id number] 11:52:00 Test Item Value Reference Range Interpretation Comments HCG (test code = HCG) negative [facility] Program
--- NOTE | 2021-08-05 14:50 | ER ---
Nurse's Notes [facility] Name: Taniya Hudson Age: 26 yrs Sex: Female : 1995 Arrival Date: 08/05/2021 Time: 14:21 Bed Waiting [facility] MD: Diagnosis: Impetigo Presentation: 08/05 14:39 Chief complaint: Patient states: Right inner thigh abscess that started last Thursday ww and has progressively gotten worse. Left calf lesion that patient believes is a mosquito bite. Coronavirus screen: Vaccine status: Patient reports receiving the 2nd dose of the covid vaccine. Client denies travel out of the [place] in the last 14 days. Ebola Screen: Patient denies travel to an Ebola-affected area in the 21 days before illness onset. Initial Sepsis Screen: Does the patient meet any 2 criteria? No. Patient's initial sepsis screen is negative. Does the patient have a suspected source of infection? No. Patient's initial sepsis screen is negative. Risk Assessment: Do you want to hurt yourself or someone else? Patient reports no desire to harm self or others. Onset of symptoms is unknown. 14:39 Method Of Arrival: Ambulatory ww 14:39 Acuity: CHUCKIE 4 ww Triage Assessment: 14:41 Bite description: bite sustained to medial aspect of right thigh by an unknown animal, ww animal information: vaccination(s) is unknown. General: Appears in no apparent distress. Behavior is cooperative. Pain: Complains of pain in right leg and left leg. 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 - Social history:: Smoking status: Patient denies any tobacco usage or history of. Screenin:02 Abuse screen: Denies threats or abuse. Nutritional screening: No deficits noted. ww Tuberculosis screening: No symptoms or risk factors identified. Fall Risk None identified. Vital Signs: 14:39 BP 121 / 67; Pulse 64; Resp 18; Temp 98.2; Pulse Ox 92% ; Weight 58.97 kg; Height 5 ft. ww 0 in. (152.40 cm); Pain 3/10; 14:39 Body Mass Index 25.39 (58.97 kg, 152.40 cm) ww ED Course: 14:21 Patient arrived in ED. am2 14:27 Carol Sladivar PA is PHCP. en 14:27 Tyrone Valdes MD is Attending Physician. en 14:41 Triage completed. ww 14:41 Arm band placed on. ww 14:48 Socrates Penny MD is Referral Physician. en 15:02 Patient has correct armband on for positive identification. ww 15:02 No provider procedures requiring assistance completed. Patient did not have IV access ww during this emergency room visit. Administered Medications: 14:32 CANCELLED (wrong ptt): Fioricet - Esgic 325 mg-40 mg-50 mg 1 tab-caps PO once en Outcome: 14:49 Discharge ordered by MD. en 15:02 Discharged to home ambulatory. ww 15:02 Condition: stable 15:02 Discharge instructions given to patient, Instructed on discharge instructions, follow up and referral plans. medication usage, safety practices, wound care, Demonstrated understanding of instructions, follow-up care, medications, wound care, Prescriptions given X 2. 15:03 Patient left the ED. ww Signatures: Andreea Santos am2 Marci Chan, RN RN ww Carol Saldivar PA PA en
--- NOTE | 2021-08-05 14:50 | EDPHYS ---
Physician Documentation [facility] Name: Taniya Hudson Age: 26 yrs Sex: Female : 1995 Arrival Date: 08/05/2021 Time: 14:21 Bed Waiting Private MD: ED Physician Tyrone Valdes HPI: 08/05 14:46 This 26 yrs old Female presents to ER via Ambulatory with complaints of Insect Bite. en 14:46 26-year-old female presents to ED with inflamed insect bite to right inner thigh and en left lateral calf by 5 days. No fevers, chills, nausea, vomiting. No redness streaking up the legs. No difficulty with ambulation.. 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 - Social history:: Smoking status: Patient denies any tobacco usage or history of. ROS: 14:46 Constitutional: Negative for fever, chills, and weight loss. en 14:46 Constitutional: Negative for body aches, chills, fever. 14:46 Cardiovascular: Negative for chest pain. 14:46 Respiratory: Negative for cough, shortness of breath. 14:46 Abdomen/GI: Negative for abdominal pain, nausea, vomiting, and diarrhea. 14:46 MS/extremity: Negative for pain, swelling, tenderness. 14:46 Skin: Positive for Implying insect bite on the right medial thigh and left lateral calf.. 14:46 Neuro: Negative for numbness, tingling, weakness. 14:46 All other systems are negative. Exam: 14:46 Constitutional: This is a well developed, well nourished patient who is awake, alert, en and in no acute distress. 14:46 Constitutional: The patient appears in no acute distress, alert, awake. 14:46 Cardiovascular: Rate: normal, Rhythm: regular, Pulses: no pulse deficits are appreciated, Heart sounds: normal, no murmur, no rub, no gallop. 14:46 Respiratory: the patient does not display signs of respiratory distress, Respirations: normal, Breath sounds: are clear throughout, no rales, rhonchi, no stridor, no wheezing. 14:46 Musculoskeletal/extremity: ROM: intact in all extremities, full active range of motion. 14:46 Skin: Small 2 x 2 centimeter area of inflammation and erythema in the right medial thigh with overlying crusting. Similar 1 cm area on the left lateral calf. No underlying induration fluctuance or drainage. 14:46 Neuro: Orientation: is normal, appropriate for stated age, no acute changes, to person, place \T\ time. Mentation: is normal, appropriate for stated age. 14:46 Psych: Behavior/mood is pleasant, Affect is calm. Vital Signs: 14:39 BP 121 / 67; Pulse 64; Resp 18; Temp 98.2; Pulse Ox 92% ; Weight 58.97 kg; Height 5 ft. ww 0 in. (152.40 cm); Pain 3/10; 14:39 Body Mass Index 25.39 (58.97 kg, 152.40 cm) ww MDM: 14:46 Patient medically screened. en 14:46 Differential diagnosis: abrasion, Cellulitis, impetigo, infected insect bite. Data en reviewed: vital signs, nurses notes, and as a result, I will discharge patient, No additional work-up required. Will DC patient home with p.o. Keflex and topical Bactroban. Acute ER return precautions reviewed. Administered Medications: 14:32 CANCELLED (wrong ptt): Fioricet - Esgic 325 mg-40 mg-50 mg 1 tab-caps PO once en Disposition: 17:40 Co-signature as Attending Physician, Tyrone Valdes MD. rn Disposition Summary: 08/05/21 14:49 Discharge Ordered Location: Home en Problem: new en Symptoms: are unchanged en Condition: Stable en Diagnosis - Impetigo en Followup: en - With: Socrates Penny MD - When: As needed - Reason: Worsening of condition Discharge Instructions: - Discharge Summary Sheet en - Impetigo, Adult en Forms: - Medication Reconciliation Form en - Thank You Letter en - Antibiotic Education en - Prescription Opioid Use en Prescriptions: - mupirocin 2 % Topical ointment - Apply to affected area 1 application by TOPICAL route 3 times per day for 7 en days; 1 tube; Refills: 0, Product Selection Permitted - Clindamycin HCl 300 mg Oral Capsule - take 1 capsule by ORAL route every 6 hours for 10 days; 40 capsule; Refills: 0, en Product Selection Permitted 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 en en 14:37 14:33 Head Brain Wo Cont+CT.RAD.BRZ ordered. EDMS EDMS
[2021-08-05 15:16] VITALS: BP 121/67; TEMP 98.2; O2SAT 92
== END 2021-08-05 15:03 | disposition home or self-care (01) ==
LOC: ER 14:11
DX: L01.00 Impetigo, unspecified (principal); Z86.73 Personal history of transient ischemic attack (TIA), and cerebral infarction without residual deficits; Z95.818 Presence of other cardiac implants and grafts
CPT/HCPCS: 99282

== ENCOUNTER 2022-03-08 01:15 | Emergency (ER) | payer SELFPAY ==
--- OUTSIDE RECORDS SUMMARY | 2022-03-08 01:27 | XMS REPORT | Continuity of Care Document ---
:1995 Author Organization [facility] t Address [address] [place] [address] Care Team Providers Name Role Phone AmyNickoEdith Primary Care Physician AMBREEN_LINDA Attending Clinician Unavailable Doctor Unassigned, [place] Attending Clinician Unavailable Petra Tubbs Attending Clinician Darcie PEREZ, Julieth Rayo Attending Clinician Unavailable Rodrigo López Attending Clinician Victoria RIVAS, Huseyin Garland Attending Clinician Cecilia Pimentel LMSW Attending Clinician Unavailable Kayode Palacios MD Attending Clinician KAYODE PALACIOS Attending Clinician Unavailable LEODAN Admitting Clinician Unavailable KAYODE PALACIOS Admitting Clinician Unavailable Payers Payer Name Policy Type Policy Number Effective Date Expiration Date S ource MEDICAID PENDING PENDING 2020 00:00:00 [place] [id number] [facility]OM[facility]'S HE[facility] PROGRAM (MEDICAID) Problems Condition Condition Condition Status Onset Resolution Last Treating Co mments Source Name Details Category Date Date Treatment Clinician Date Posttrauma Posttrauma Problem Active M atagor tic stress tic Stress 8 da disorder Disorder 00:00: Episco p 00 al [facility] Epigastric Epigastric Disease Active 2015-03 U nivers pain pain 1-17 ity of 00:00: Medical Branch 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 9-19 Formattin i ty of 00:00: g of this note Medical might be Branch different from the original. 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 Cyanosis Cyanosis Disease Active Unive rs 11-18 ity of 00:00: Medical Branch S/P Fontan [...] Uni vers Drug ty to See comments 6 ity of Allergie adverse 00:00: [place] reaction 00 Medical s Branch No Known Propensi Active Unknown - Uni vers Drug ty to See comments 6 ity of Allergie adverse 00:00: [place] reaction 00 Medical s Branch Social History Social Habit Start Date Stop Date Quantity Comments Source History of Passive smoker University of tobacco use [place] [facility] Exposure to Not sure University of SARS-CoV-2 [facility] (event) [place] Alcohol intake 2021-09-10 2021-09-10 0 /d University of 00:00:00 00:00:00 [facility] Tobacco use and 2015-01-01 2015-01-01 Smokeless tobacco Un iversity of exposure 00:00:00 00:00:00 non-user [facility] Sex Assigned At [birth year] Universit y of 00:00:00 00:00:00 [facility] Smoking Status Start Date Stop Date Source Never Smoker Karen [facility] Medications Ordered Filled Start Stop Current Ordering Indication Dosage Frequency Signature Comments Components Source Medication Medication Date Date Medication? Clinician (SIG) Name Name TAKE 1 2021-0 No 100 CAPSULE BY 8-16 MOUTH EVERY 00:00: 8 HOURS 00 NEEDED FOR COUGH AND CONGESTION TAKE 1 2021-0 No TABLET BY 8-16 MOUTH ONCE 00:00: DAILY WITH 00 MEALS TAKE 1 2021-0 No 100 CAPSULE BY 8-15 MOUTH EVERY 00:00: 8 HOURS 00 NEEDED FOR COUGH AND CONGESTION TAKE 1 2021-0 No 100 CAPSULE BY 8-15 MOUTH EVERY 00:00: 8 HOURS 00 NEEDED FOR COUGH AND CONGESTION TAKE 1 2021-0 No 100 TABLET BY 8-15 MOUTH ONCE 00:00: DAILY WITH 00 MEALS TAKE 1 2021-0 No TABLET BY 7-28 MOUTH EVERY 00:00: 12 HOURS 00 FOR 10 DAYS TAKE 1 2021-0 No 2 CAPSULE BY 7-28 MOUTH ONCE 00:00: DAILY AT 00 BEDTIME APPLY 2021-0 No OINTMENT 7-28 TOPICALLY 00:00: TO AFFECTED 00 AREA THREE TIMES DAILY FOR 7 DAYS TAKE 1 2021-0 No 100 CAPSULE BY 7-28 MOUTH EVERY 00:00: 8 HOURS 00 NEEDED FOR COUGH AND CONGESTION APPLY 2021-0 No OINTMENT 7-28 TOPICALLY 00:00: TO AFFECTED 00 AREA THREE TIMES DAILY FOR 7 DAYS TAKE 1 2021-0 No 100 CAPSULE BY 7-14 MOUTH EVERY 00:00: 8 HOURS 00 NEEDED FOR COUGH AND CONGESTION sertraline 2-0 No 1mg 100 mg 7-14 tablet 00:00: 00 sertraline 2022-0 No 1mg 100 mg 7-14 tablet 00:00: 00 prazosin 2 2021-0 No 1mg mg capsule 7-14 00:00: 00 TAKE 1 2021-0 No 100 CAPSULE BY 7-14 MOUTH EVERY 00:00: 8 HOURS 00 NEEDED FOR COUGH AND CONGESTION APPLY 2021-0 No OINTMENT 7-14 TOPICALLY 00:00: TO AFFECTED 00 AREA THREE TIMES DAILY FOR 7 DAYS TAKE 1 2021-0 No TABLET BY 7-14 MOUTH EVERY 00:00: 12 HOURS 00 FOR 10 DAYS TAKE 1 2021-0 No 100 TABLET BY 7-14 MOUTH ONCE 00:00: DAILY WITH 00 FOOD levoFLOXaci 2020- No 500mg 500 mg, U [...] mg 00 :00 ONCE, 1 Medical dose, [place] [facility] 04/01/20 at 0200, ESTELLE
Fa culty member approving Restricted medication : Rodrigo BREWSTER acetaminoph 2020- No 1000mg 1,000 mg, Univers en 04-01 Oral, ity of (TYLENOL) 06:22: 06:27 ONCE, 1 [place] tablet 00 :00 dose, [facility],000 mg 04/01/20 at [facility] h 0030, ESTELLE levoFLOXaci Yes [id number] 500mg Take 1 Univers n 04-01 tablet by ity of (LEVAQUIN) 00:00: mouth [place] 500 mg 00 every 24 Medical tablet (twenty-fo [place] ur) hours. levoFLOXaci 2020-0 Yes [id number] 500mg Take 1 Univers n 1-31 tablet by ity of (LEVAQUIN) 00:00: mouth [place] 500 mg 00 every 24 Medical tablet ( [place] ur) hours. levoFLOXaci 2020-0 Yes [id number] 500mg Take 1 Univers n 1-31 tablet by ity of (LEVAQUIN) 00:00: mouth [place] 500 mg 00 every 24 Medical tablet ( [place] ur) hours. levoFLOXaci 2020-0 Yes [id number] 500mg Take 1 Univers n 1-31 tablet by ity of (LEVAQUIN) 00:00: mouth [place] 500 mg 00 every 24 Medical tablet ( [place] ur) hours. enalapril 2020-1 Yes TAKE 1 Univer s 2.5 mg 1-02 TABLET BY ity of tablet 00:00: MOUTH ONCE [place] 00 DAILY IN [facility] [place] [facility] MORNING AND 2 TABLETS IN THE EVENING enalapril 2020- Yes TAKE 1 Univer s 2.5 mg 1-02 TABLET BY ity of tablet 00:00: MOUTH ONCE [place] 00 DAILY IN [facility] MORNING AND 2 TABLETS IN THE EVENING enalapril 2020-1 Yes TAKE 1 Univer s 2.5 mg 1-02 TABLET BY ity of tablet 00:00: MOUTH ONCE [place] 00 DAILY IN [facility] MORNING AND 2 TABLETS IN THE EVENING enalapril 2020-1 Yes TAKE 1 Univer s 2.5 mg 1-02 TABLET BY ity of tablet 00:00: MOUTH ONCE [place] 00 DAILY IN [facility] MORNING AND 2 TABLETS IN THE EVENING enalapril 2020-1 Yes TAKE 1 Univer s 2.5 mg 1-02 TABLET BY ity of tablet 00:00: MOUTH ONCE [place] 00 DAILY IN [facility] MORNING AND 2 TABLETS IN THE EVENING enalapril 2020-1 Yes TAKE 1 Univer s 2.5 mg 1-02 TABLET BY ity of tablet 00:00: MOUTH ONCE [place] 00 DAILY IN [facility] MORNING AND 2 TABLETS IN THE EVENING enalapril 2020-1 Yes TAKE 1 Univer s 2.5 mg 1-02 TABLET BY ity of tablet 00:00: MOUTH ONCE [place] 00 DAILY IN [facility] MORNING AND 2 TABLETS IN THE EVENING enalapril 2020-1 Yes TAKE 1 Univer s 2.5 mg 1-02 TABLET BY ity of tablet 00:00: MOUTH ONCE [place] 00 DAILY IN [facility] Branch MORNING AND 2 TABLETS IN THE EVENING enalapril 2020-1 Yes TAKE 1 Univer s 2.5 mg 1-02 TABLET BY ity of tablet 00:00: MOUTH ONCE [place] 00 DAILY IN [facility] THE Branch MORNING AND 2 TABLETS IN THE EVENING enalapril 2020-1 Yes TAKE 1 Univer s 2.5 mg 1-02 TABLET BY ity of tablet 00:00: MOUTH ONCE [place] 00 DAILY IN [facility] THE Branch MORNING AND 2 TABLETS IN THE EVENING enalapril 2020- Yes TAKE 1 Univer s 2.5 mg 1-02 TABLET BY ity of tablet 00:00: MOUTH ONCE [place] 00 DAILY IN [facility] THE Branch MORNING AND 2 TABLETS IN THE EVENING enalapril 2020- Yes TAKE 1 Univer s 2.5 mg 1-02 TABLET BY ity of tablet 00:00: MOUTH ONCE [place] 00 DAILY IN [facility] MORNING AND 2 TABLETS IN THE EVENING ENALAPRIL 2020-0 Yes TAKE 1 Univer s 2.5 mg 7-24 TABLET BY ity of tablet 00:00: MOUTH ONCE [place] 00 DAILY IN [facility] Branch MORNING AND 2 TABLETS IN THE EVENING ENALAPRIL 2020-0 Yes TAKE 1 Univer s 2.5 mg 7-24 TABLET BY ity of tablet 00:00: MOUTH ONCE [place] 00 DAILY IN [facility] Branch MORNING AND 2 TABLETS IN THE EVENING ENALAPRIL 2020-0 2020- No TAKE 1 Unive rs 2.5 mg 7-24 11-02 TABLET BY ity of tablet 00:00: 00:00 M[place]TH [place]CE [place] :[place] [facility] MORNING AND 2 TABLETS IN THE EVENING aspirin 2020-0 Yes 81mg Take 81 mg Univ ers (BABY 6-18 by mouth ity of ASPIRIN) 81 08:22: daily. [place] mg chewable [address] [facility] Branch ACETAMINOPH 2020-0 Yes Take by Uni vers EN (TYLENOL 6-18 mouth. ity of ORAL) 08:22: [place] 29 Medical Branch DM/PSEUDOEP 2020-0 Yes Take by Uni vers HED/ACETAMI 6-18 mouth. ity of NOPHEN 08:22: [place] (VICKS 29 Medical DAYQUIL Branch ORAL) IBUPROFEN 2020-0 Yes Take by Unive rs ORAL 6-18 mouth. ity of 08:22: [place] [address] Medical Branch aspirin 2020-0 Yes 81mg Take 81 mg Univ ers (BABY 6-18 by mouth ity of ASPIRIN) 81 08:22: daily. [place] mg chewable 29 Medical tablet Branch ACETAMINOPH 2020-0 Yes Take by Uni vers EN (TYLENOL 6-18 mouth. ity of ORAL) 08:22: [place] [address] Medical Branch DM/PSEUDOEP 2020-0 Yes Take by Un ibrahima HED/ACETAMI 6-18 mouth. ity of NOPHEN 08:22: [place] ([place] [address] Medical DAYQUIL Branch ORAL) IBUPROFEN 2020-0 Yes Take by Unive rs ORAL 6-18 mouth. ity of 08:22: [place] [address] Medical Branch aspirin 2020-0 Yes 81mg Take 81 mg Univ ers (BABY 6-18 by mouth ity of ASPIRIN) 81 08:22: daily. [place] mg chewable 29 Medical tablet Branch ACETAMINOPH 2020-0 Yes Take by Uni vers EN (TYLENOL 6-18 mouth. ity of ORAL) 08:22: [place] [address] Medical Branch DM/PSEUDOEP 2020-0 Yes Take by Uni vers HED/ACETAMI 6-18 mouth. ity of NOPHEN 08:22: [place] ([place] [address] Medical DAYQUIL Branch ORAL) IBUPROFEN 2020-0 Yes Take by Unive rs ORAL 6-18 mouth. ity of 08:22: [place] [address] Medical Branch aspirin 2020-0 Yes 81mg Take 81 mg Univ ers (BABY 6-18 by mouth ity of ASPIRIN) 81 08:22: daily. [place] mg chewable 29 Medical tablet Branch ACETAMINOPH 2020-0 Yes Take by Uni vers EN (TYLENOL 6-18 mouth. ity of ORAL) 08:22: [place] [address] Medical Branch DM/PSEUDOEP 2020-0 Yes Take by Uni vers HED/ACETAMI 6-18 mouth. ity of NOPHEN 08:22: [place] ([place] [address] Medical DAYQUIL Branch ORAL) IBUPROFEN 2020-0 Yes Take by Unive rs ORAL 6-18 mouth. ity of 08:22: [place] [address] Medical Branch aspirin 2020-0 Yes 81mg Take 81 mg Univ ers (BABY 6-18 by mouth ity of ASPIRIN) 81 08:22: daily. [place] mg chewable 29 Medical tablet Branch ACETAMINOPH 2020-0 Yes Take by Uni vers EN (TYLENOL 6-18 mouth. ity of ORAL) 08:22: [place] [address] Medical Branch DM/PSEUDOEP 2020-0 Yes Take by Uni vers HED/ACETAMI 6-18 mouth. ity of NOPHEN 08:22: [place] ([place] [address] Medical DAYQUIL Branch ORAL) IBUPROFEN 2020-0 Yes Take by Unive rs ORAL 6-18 mouth. ity of 08:22: [place] [address] Medical Branch aspirin 2020-0 Yes 81mg Take 81 mg Univ ers (BABY 6-18 by mouth ity of ASPIRIN) 81 08:22: daily. [place] mg chewable 29 Medical tablet Branch ACETAMINOPH 2020-0 Yes Take by Uni vers EN (TYLENOL 6-18 mouth. ity of ORAL) 08:22: [place] [address] Medical Branch DM/PSEUDOEP 2020-0 Yes Take by Uni vers HED/ACETAMI 6-18 mouth. ity of NOPHEN 08:22: [place] ([place] [address] Medical DAYQUIL Branch ORAL) IBUPROFEN 2020-0 Yes Take by Unive rs ORAL 6-18 mouth. ity of 08:22: [place] [address] Medical Branch aspirin 2020-0 Yes 81mg Take 81 mg Univ ers (BABY 6-18 by mouth ity of ASPIRIN) 81 08:22: daily. [place] mg chewable 29 Medical tablet Branch ACETAMINOPH 2020-0 Yes Take by Uni vers EN (TYLENOL 6-18 mouth. ity of ORAL) 08:22: [place] [address] Medical Branch DM/PSEUDOEP 2020-0 Yes Take by Uni vers HED/ACETAMI 6-18 mouth. ity of NOPHEN 08:22: [place] ([place] [address] Medical DAYQUIL Branch ORAL) IBUPROFEN 2020-0 Yes Take by Unive rs ORAL 6-18 mouth. ity of 08:22: [place] [address] Medical Branch aspirin 2020-0 Yes 81mg Take 81 mg Univ ers (BABY 6-18 by mouth ity of ASPIRIN) 81 08:22: daily. [place] mg chewable 29 Medical tablet Branch ACETAMINOPH 2020-0 Yes Take by Uni vers EN (TYLENOL 6-18 mouth. ity of ORAL) 08:22: [place] [address] Medical Branch DM/PSEUDOEP 2020-0 Yes Take by Uni vers HED/ACETAMI 6-18 mouth. ity of NOPHEN 08:22: [place] ([place] [address] Medical DAYQUIL Branch ORAL) IBUPROFEN 2020-0 Yes Take by Unive rs ORAL 6-18 mouth. ity of 08:22: [place] [address] Medical Branch aspirin 2020-0 Yes 81mg Take 81 mg Univ ers (BABY 6-18 by mouth ity of ASPIRIN) 81 08:22: daily. [place] mg chewable 29 Medical tablet Branch ACETAMINOPH 2020-0 Yes Take by Uni vers EN (TYLENOL 6-18 mouth. ity of ORAL) 08:22: [place] [address] Medical Branch DM/PSEUDOEP 2020-0 Yes Take by Uni vers HED/ACETAMI 6-18 mouth. ity of NOPHEN 08:22: [place] ([place] [address] Medical DAYQUIL Branch ORAL) IBUPROFEN 2020-0 Yes Take by Unive rs ORAL 6-18 mouth. ity of 08:22: [place] [address] Medical Branch aspirin 2020-0 Yes 81mg Take 81 mg Univ ers (BABY 6-18 by mouth ity of ASPIRIN) 81 08:22: daily. [place] mg chewable 29 Medical tablet Branch ACETAMINOPH 2020-0 Yes Take by Uni vers EN (TYLENOL 6-18 mouth. ity of ORAL) 08:22: [place] [address] Medical Branch DM/PSEUDOEP 2020-0 Yes Take by Uni vers HED/ACETAMI 6-18 mouth. ity of NOPHEN 08:22: [place] ([place] [address] Medical DAYQUIL Branch ORAL) IBUPROFEN 2020-0 Yes Take by Unive rs ORAL 6-18 mouth. ity of 08:22: [place] [address] Medical Branch aspirin 2020-0 Yes 81mg Take 81 mg Univ ers (BABY 6-18 by mouth ity of ASPIRIN) 81 08:22: daily. [place] mg chewable 29 Medical tablet Branch ACETAMINOPH 2020-0 Yes Take by Uni vers EN (TYLENOL 6-18 mouth. ity of ORAL) 08:22: [place] [address] Medical Branch DM/PSEUDOEP 2020-0 Yes Take by Uni vers HED/ACETAMI 6-18 mouth. ity of NOPHEN 08:22: [place] ([place] [address] Medical DAYQUIL Branch ORAL) IBUPROFEN 2020-0 Yes Take by Unive rs ORAL 6-18 mouth. ity of 08:22: [place] [address] Medical Branch aspirin 2020-0 Yes 81mg Take 81 mg Univ ers (BABY 6-18 by mouth ity of ASPIRIN) 81 08:22: daily. [place] mg chewable 29 Medical tablet Branch ACETAMINOPH 2020-0 Yes Take by Uni vers EN (TYLENOL 6-18 mouth. ity of ORAL) 08:22: [place] [address] Medical Branch DM/PSEUDOEP 2020-0 Yes Take by Uni vers HED/ACETAMI 6-18 mouth. ity of NOPHEN 08:22: [place] ([place] [address] Medical DAYQUIL Branch ORAL) IBUPROFEN 2020-0 Yes Take by Unive rs ORAL 6-18 mouth. ity of 08:22: [place] [address] Medical Branch aspirin 2020-0 Yes 81mg Take 81 mg Univ ers (BABY 6-18 by mouth ity of ASPIRIN) 81 08:22: daily. [place] mg chewable 29 Medical tablet Branch ACETAMINOPH 2020-0 Yes Take by Uni vers EN (TYLENOL 6-18 mouth. ity of ORAL) 08:22: [place] [address] Medical Branch DM/PSEUDOEP 2020-0 Yes Take by Uni vers HED/ACETAMI 6-18 mouth. ity of NOPHEN 08:22: [place] ([place] [address] Medical DAYQUIL Branch ORAL) IBUPROFEN 2020-0 Yes Take by Unive rs ORAL 6-18 mouth. ity of 08:22: [place] [address] Medical Branch aspirin 2020-0 Yes 81mg Take 81 mg Univ ers (BABY 6-18 by mouth ity of ASPIRIN) 81 08:22: daily. [place] mg chewable 29 Medical tablet Branch ACETAMINOPH 2020-0 Yes Take by Uni vers EN (TYLENOL 6-18 mouth. ity of ORAL) 08:22: [place] [address] Medical Branch DM/PSEUDOEP 2020-0 Yes Take by Uni vers HED/ACETAMI 6-18 mouth. ity of NOPHEN 08:22: [place] ([place] [address] Medical DAYQUIL Branch ORAL) IBUPROFEN 2020-0 Yes Take by Unive rs ORAL 6-18 mouth. ity of 08:22: [place] [address] Medical Branch aspirin 2020-0 Yes 81mg Take 81 mg Univ ers (BABY 6-18 by mouth ity of ASPIRIN) 81 03:22: daily. [place] mg chewable 29 Medical tablet Branch ACETAMINOPH 2020-0 Yes Take by Uni vers EN (TYLENOL 6-18 mouth. ity of ORAL) 03:22: [place] [address] Medical Branch DM/PSEUDOEP 2020-0 Yes Take by Uni vers HED/ACETAMI 6-18 mouth. ity of NOPHEN 03:22: [place] ([place] [address] Medical DAYQUIL Branch ORAL) IBUPROFEN 2020-0 Yes Take by Unive rs ORAL 6-18 mouth. ity of 03:22: [place] 29 Medical Branch ibuprofen 2020-0 Yes [id number] 600mg Take 1 Univers 600 mg 6-18 [id number] tablet by ity of tablet 00:00: [facility] [place] (three) Medical times Branch daily with meals. ibuprofen 2020-0 Yes [id number] 600mg Take 1 Univers 600 mg 6-18 [id number] tablet by ity of tablet 00:00: [facility] [place] (three) Medical times Branch daily with meals. ibuprofen 2020-0 Yes [id number] 600mg Take 1 Univers 600 mg 6-18 [id number] tablet by ity of tablet 00:00: [facility] [place] (three) Medical times Branch daily with meals. ibuprofen 2020-0 Yes [id number] 600mg Take 1 Univers 600 mg 6-18 [id number] tablet by ity of tablet 00:00: [facility] [place] (three) Medical times Branch daily with meals. ibuprofen 2020-0 Yes [id number] 600mg Take 1 Univers 600 mg 6-18 [id number] tablet by ity of tablet 00:00: [facility] [place] ([facility]) Medical times Branch daily with meals. ibuprofen 2020-0 Yes [id number] 600mg Take 1 Univers 600 mg 6-18 [id number] tablet by ity of tablet 00:00: [address] ([facility]) Medical times Branch daily with meals. ibuprofen 2020-0 Yes [id number] 600mg Take 1 Univers 600 mg 6-18 [id number] tablet by ity of tablet 00:00: [address] (three) Medical times Branch daily with meals. ibuprofen 2020-0 Yes [id number] 600mg Take 1 Univers 600 mg 6-18 [id number] tablet by ity of tablet 00:00: [address] ([facility]) Medical times Branch daily with meals. ibuprofen 2020-0 Yes [id number] 600mg Take 1 Univers 600 mg 6-18 [id number] tablet by ity of tablet 00:00: [address] (three) Medical times Branch daily with meals. ibuprofen 2020-0 Yes [id number] 600mg Take 1 Univers 600 mg 6-18 [id number] tablet by ity of tablet 00:00: [address] (three) Medical times Branch daily with meals. ibuprofen 2020-0 Yes [id number] 600mg Take 1 Univers 600 mg 6-18 [id number] tablet by ity of tablet 00:00: [address] 00 (three) Medical times Branch daily with meals. ibuprofen 2020-0 Yes [id number] 600mg Take 1 Univers 600 mg 6-18 [id number] tablet by ity of tablet 00:00: mouth 3 00 (three) [facility] daily with meals. ibuprofen 2020-0 Yes [id number] 600mg Take 1 Univers 600 mg 6-18 [id number] tablet by ity of tablet 00:00: mouth 3 00 (three) Medical [facility] daily with meals. ibuprofen 2020-0 Yes [id number] 600mg Take 1 Univers 600 mg 6-18 [id number] tablet by ity of tablet 00:00: mouth 3 (three) Medical [facility] daily with meals. ibuprofen 2020-0 Yes [id number] 600mg Take 1 Univers 600 mg 6-18 [id number] tablet by ity of tablet 00:00: mouth 3 (three) [facility] daily with meals. ENALAPRIL 2020-0 Yes TAKE 1 Univer s 2.5 mg 6-15 TABLET BY ity of tablet 00:00: MOUTH ONCE 00 DAILY IN [facility] [place] [facility] MORNING AND 2 TABLETS IN THE EVENING ENALAPRIL 2020-0 Yes TAKE 1 Univer s 2.5 mg 6-15 TABLET BY ity of tablet 00:00: MOUTH ONCE 00 DAILY IN [facility] [place] MORNING AND 2 TABLETS IN THE EVENING ENALAPRIL 2020-0 Yes TAKE 1 Univer s 2.5 mg 6-15 TABLET BY ity of tablet 00:00: MOUTH ONCE 00 DAILY IN [facility] [place] MORNING AND 2 TABLETS IN THE EVENING ENALAPRIL 2020-0 2020- No TAKE 1 Unive rs 2.5 mg 6-15 07-24 TABLET BY ity of tablet 00:00: 00:00 [place]CE [place] DA[place] [facility] [place] [facility] MORNING AND 2 TABLETS IN THE EVENING ENALAPRIL 2020-0 Yes TAKE 1 Univer s 2.5 mg 5-26 TABLET BY ity of tablet 00:00: MOUTH ONCE [place] 00 DAILY IN [facility] [place] MORNING AND 2 IN THE EVENING ENALAPRIL 2020-0 2020- No TAKE 1 Unive rs 2.5 mg 5-26 06-15 TABLET BY ity of tablet 00:00: 00:00 [place]CE [place] [facility] [place] MORNING AND 2 IN THE EVENING ENALAPRIL 2020-0 Yes TAKE [...] tablet 00:00: MOUTH ONCE 00 DAILY IN [facility] THE Branch MORNING AND 2 IN THE EVENING ENALAPRIL 2020- No TAKE 1 Unive rs 2.5 mg 8-28 03-30 TABLET BY ity of tablet 00:00: 00:00 [place]CE [place] DA[place] IN [facility] THE Branch MORNING AND 2 IN THE EVENING phenazopyri Yes [id number] 200mg Take 1 Univers dine 200 mg 3-23 tablet by ity of tablet 00:00: mouth 3 (three) Medical times [place] daily. phenazopyri Yes [id number] 200mg Take 1 Univers dine 200 mg 3-23 tablet by ity of tablet 00:00: mouth 3 (three) Medical times [place] daily. phenazopyri Yes [id number] 200mg Take 1 Univers dine 200 mg 3-23 tablet by ity of tablet 00:00: mouth 3 00 (three) Medical times [place] daily. phenazopyri Yes [id number] 200mg Take 1 Univers dine 200 mg 3-23 tablet by ity of tablet 00:00: mouth 3 00 (three) Medical times [place] daily. phenazopyri Yes [id number] 200mg Take 1 Univers dine 200 mg 3-23 tablet by ity of tablet 00:00: mouth 3 (three) Medical times Branch daily. phenazopyri 2018- Yes [id number] 200mg Take 1 Univers dine 200 mg 3-23 tablet by ity of tablet 00:00: mouth 3 (three) Medical times Branch daily. phenazopyri 2018- Yes [id number] 200mg Take 1 Univers dine 200 mg 3-23 tablet by ity of tablet 00:00: mouth (three) Medical times Branch daily. phenazopyri Yes [id number] 200mg Take 1 Univers dine 200 mg 3-23 tablet by ity of tablet 00:00: mouth (three) Medical times Branch daily. phenazopyri Yes [id number] 200mg Take 1 Univers dine 200 mg 3-23 tablet by ity of tablet 00:00: mouth (three) Medical times Branch daily. phenazopyri Yes [id number] 200mg Take 1 Univers dine 200 mg 3-23 tablet by ity of tablet 00:00: mouth (three) Medical times Branch daily. phenazopyri Yes [id number] 200mg Take 1 Univers dine 200 mg 3-23 tablet by ity of tablet 00:00: mouth (three) Medical times Branch daily. phenazopyri Yes [id number] 200mg Take 1 Univers dine 200 mg 3-23 tablet by ity of tablet 00:00: mouth (three) Medical times Branch daily. phenazopyri Yes [id number] 200mg Take 1 Univers dine 200 mg 3-23 tablet by ity of tablet 00:00: mouth (three) Medical times Branch daily. phenazopyri 2018- Yes [id number] 200mg Take 1 Univers dine 200 mg 3-23 tablet by ity of tablet 00:00: mouth (three) Medical times Branch daily. phenazopyri 2018-0 Yes [id number] 200mg Take 1 Univers dine 200 mg 3-23 tablet by ity of tablet 00:00: mouth 3 (three) Medical times Branch daily. phenazopyri 2018- Yes [id number] 200mg Take 1 Univers dine 200 mg 3-23 tablet by ity of tablet 00:00: mouth 3 00 (three) Medical times Branch daily. phenazopyri 2018- Yes [id number] 200mg Take 1 Univers dine 200 mg 3-23 tablet by ity of tablet 00:00: mouth 3 00 (three) Medical times Branch daily. phenazopyri 2018- Yes [id number] 200mg Take 1 Univers dine 200 mg 3-23 tablet by ity of tablet 00:00: mouth 3 00 (three) Medical times Branch daily. phenazopyri Yes [id number] 200mg Take 1 Univers dine 200 mg 3-23 tablet by ity of tablet 00:00: mouth 3 00 (three) Medical times Branch daily. phenazopyri Yes [id number] 200mg Take 1 Univers dine 200 mg 3-23 tablet by ity of tablet 00:00: mouth 3 00 (three) Medical times Branch daily. phenazopyri Yes [id number] 200mg Take 1 Univers dine 200 mg 3-23 tablet by ity of tablet 00:00: mouth 3 00 (three) Medical times Branch daily. ENALAPRIL 2019- [...] 00:00: MOUTH ONCE [place] 00 DAILY IN [facility] THE Branch MORNING AND TWO IN THE EVENING ENALAPRIL 2016-03 Yes TAKE ONE Univ ers 2.5 mg 0-12 TABLET BY ity of tablet 00:00: MOUTH ONCE [place] 00 DAILY IN Medical THE Branch MORNING AND TWO IN THE EVENING ENALAPRIL 2016-03 Yes TAKE ONE Univ ers 2.5 mg 0-12 TABLET BY ity of tablet 00:00: MOUTH ONCE [place] 00 DAILY IN [facility] THE Branch MORNING AND TWO IN THE EVENING ENALAPRIL 2016-03 Yes TAKE ONE Univ ers 2.5 mg 0-12 TABLET BY ity of tablet 00:00: MOUTH ONCE [place] 00 DAILY IN Medical THE Branch MORNING AND TWO IN THE EVENING ENALAPRIL 2016-03 Yes TAKE ONE Univ ers 2.5 mg 0-12 TABLET BY ity of tablet 00:00: MOUTH ONCE [place] 00 DAILY IN [facility] [place] MORNING AND TWO IN THE EVENING ENALAPRIL 2016-03 Yes TAKE ONE Univ ers 2.5 mg 0-12 TABLET BY ity of tablet 00:00: MOUTH ONCE [place] 00 DAILY IN [facility] [place] MORNING AND TWO IN THE EVENING aspirin Yes 81mg Take 81 mg Univ ers (BABY 3-08 by mouth ity of ASPIRIN) 81 21:21: [place] chew[place] 23 Medical tablet Branch ACETAMINOPH Yes Take by Uni vers EN (TYLENOL 3-08 mouth. ity of ORAL) 21:21: [address] DM/PSEUDOEP Yes Take by Uni vers HED/ACETAMI 3-08 mouth. ity of RAJANHEN 21:21: [place] ([address] DAYQUIL Branch ORAL) IBUPROFEN Yes Take by Unive rs ORAL 3-08 mouth. ity of 21:21: [place] [address] Medical Branch aspirin Yes 81mg Take 81 mg Univ ers (BABY 3-08 by mouth ity of ASPIRIN) 81 21:21: [place] [facility] tablet Branch ACETAMINOPH Yes Take by Uni vers EN (TYLENOL 3-08 mouth. ity of ORAL) 21:21: [place] [id number] Medical Branch aspirin 2016-0 Yes 81mg Take 81 mg Univ ers (BABY 3-08 by mouth ity of ASPIRIN) 81 21:21: [place] [facility] tablet Branch ACETAMINOPH Yes Take by [facility] vers EN (TYLENOL 3-08 mouth. ity of ORAL) 21:21: [address] Branch DM/PSEUDOEP Yes Take by Uni vers HED/ACETAMI 3-08 mouth. ity of NOPHEN 21:21: [place] ([place] [address] Medical DAYQUIL Branch ORAL) IBUPROFEN Yes Take by Unive rs ORAL 3-08 mouth. ity of 21:21: [address] Branch DM/PSEUDOEP Yes Take by Uni vers HED/ACETAMI 3-08 mouth. ity of NOPHEN 21:21: [place] ([place] [address] Medical DAYQUIL Branch ORAL) IBUPROFEN Yes Take by Unive rs ORAL 3-08 mouth. ity of 21:21: [address] Branch aspirin Yes 81mg Take 81 mg Univ ers (BABY 3-08 by mouth ity of ASPIRIN) 81 21:21: [place] [facility] tablet Branch ACETAMINOPH Yes Take by Uni vers EN (TYLENOL 3-08 mouth. ity of ORAL) 21:21: [address] Branch DM/PSEUDOEP Yes Take by Uni vers HED/ACETAMI 3-08 mouth. ity of NOPHEN 21:21: [place] ([place] [address] Medical DAYQUIL Branch ORAL) IBUPROFEN Yes Take by Unive rs ORAL 3-08 mouth. ity of 21:21: [address] aspirin Yes 81mg Take 81 mg Univ ers (BABY 3-08 by mouth ity of ASPIRIN) 81 21:21: [place] [facility] tablet Branch ACETAMINOPH Yes Take by Uni vers EN (TYLENOL 3-08 mouth. ity of ORAL) 21:21: [address] Branch DM/PSEUDOEP 2017- Yes Take by Uni vers HED/ACETAMI 3-08 mouth. ity of NOPHEN 21:21: [place] ([place] [address] Medical DAYQUIL Branch ORAL) IBUPROFEN 2016-0 Yes Take by Unive rs ORAL 3-08 mouth. ity of 21:21: [address] Branch aspirin 2016-0 Yes 81mg Take 81 mg Univ ers (BABY 3-08 by mouth ity of ASPIRIN) 81 21:21: [place] 23 Medical tablet Branch ACETAMINOPH 2017-0 Yes Take by Uni vers EN (TYLENOL 3-08 mouth. ity of ORAL) 21:21: [place] 23 Medical Branch DM/PSEUDOEP 2017-0 Yes Take by Uni vers HED/ACETAMI 3-08 mouth. ity of NOPHEN 21:21: [place] ([place] 23 Medical DAYQUIL Branch ORAL) IBUPROFEN 2017-0 Yes Take by Unive rs ORAL 3-08 mouth. ity of 21:21: [place] 23 Medical Branch SERTraline 2016-0 Yes [id number] TAKE ONE Univers 50 mg 3-02 TABLET BY ity of tablet 00:00: MOUTH [place] 00 DAILY FOR Medical 30 DAYS. Branch SERTraline Yes [id number] TAKE ONE Univers 50 mg 3-02 TABLET BY ity of tablet 00:00: MOUTH [place] 00 DAILY FOR Medical 30 DAYS. Branch SERTraline Yes [id number] TAKE ONE Univers 50 mg 3-02 TABLET BY ity of tablet 00:00: MOUTH [place] 00 DAILY FOR Medical 30 DAYS. Branch SERTraline Yes [id number] TAKE ONE Univers 50 mg 3-02 TABLET BY ity of tablet 00:00: MOUTH [place] 00 DAILY FOR Medical 30 DAYS. Branch SERTraline Yes [id number] TAKE ONE Univers 50 mg 3-02 TABLET BY ity of tablet 00:00: MOUTH [place] 00 DAILY FOR Medical 30 DAYS. Branch SERTraline Yes [id number] TAKE ONE Univers 50 mg 3-02 TABLET BY ity of tablet 00:00: MOUTH [place] 00 DAILY FOR Medical 30 DAYS. Branch SERTraline 2016- Yes [id number] TAKE ONE Univers 50 mg 3-02 TABLET BY ity of tablet 00:00: MOUTH [place] 00 DAILY FOR Medical 30 DAYS. Branch SERTraline Yes [id number] TAKE ONE Univers 50 mg 3-02 TABLET BY ity of tablet 00:00: MOUTH [place] 00 DAILY FOR Medical 30 DAYS. Branch SERTraline Yes [id number] TAKE ONE Univers 50 mg 3-02 TABLET BY ity of tablet 00:00: MOUTH [place] 00 DAILY FOR Medical 30 DAYS. Branch SERTraline Yes [id number] TAKE ONE Univers 50 mg 3-02 TABLET BY ity of tablet 00:00: MOUTH [place] 00 DAILY FOR Medical 30 DAYS. Branch SERTraline Yes [id number] TAKE ONE Univers 50 mg 3-02 TABLET BY ity of tablet 00:00: MOUTH [place] 00 DAILY FOR Medical 30 DAYS. [place] SERTraline Yes [id number] TAKE ONE Univers 50 mg 3-02 TABLET BY ity of tablet 00:00: MOUTH [place] 00 DAILY FOR Medical 30 DAYS. [place] SERTraline Yes [id number] TAKE ONE Univers 50 mg 3-02 TABLET BY ity of tablet 00:00: MOUTH [place] 00 DAILY FOR Medical 30 DAYS. [place] SERTraline Yes [id number] TAKE ONE Univers 50 mg 3-02 TABLET BY ity of tablet 00:00: MOUTH [place] 00 DAILY FOR Medical 30 DAYS. [place] SERTraline Yes [id number] TAKE ONE Univers 50 mg 3-02 TABLET BY ity of tablet 00:00: MOUTH [place] 00 DAILY FOR Medical 30 DAYS. [place] SERTraline Yes [id number] TAKE ONE Univers 50 mg 3-02 TABLET BY ity of tablet 00:00: MOUTH [place] 00 DAILY FOR Medical 30 DAYS. [place] SERTraline Yes [id number] TAKE ONE Univers 50 mg 3-02 TABLET BY ity of tablet 00:00: MOUTH [place] 00 DAILY FOR Medical 30 DAYS. [place] SERTraline Yes [id number] TAKE ONE Univers 50 mg 3-02 TABLET BY ity of tablet 00:00: MOUTH [place] 00 DAILY FOR Medical 30 DAYS. [place] SERTraline Yes [id number] TAKE ONE Univers 50 mg 3-02 TABLET BY ity of tablet 00:00: MOUTH [place] 00 DAILY FOR Medical 30 DAYS. [place] SERTraline Yes [id number] TAKE ONE Univers 50 mg 3-02 TABLET BY ity of tablet 00:00: MOUTH [place] 00 DAILY FOR Medical 30 DAYS. [place] SERTraline Yes [id number] TAKE ONE Univers 50 mg 3-02 TABLET BY ity of tablet 00:00: MOUTH [place] 00 DAILY FOR Medical 30 DAYS. [place] Asprin Ec Asprin Ec No 1 Q1D [...] Source Name Name influenza, influenza, 2019-11-30 Completed [place] injectable, injectable, 11:22:00 [facility] quadrivalent, quadrivalent, Outreach Program preservative free preservative free Tdap Tdap 2019-11-30 Completed [place] 11:21:00 [facility] Influenza Virus 2015-12-05 Completed Universit y of Vaccine Quad IM 00:00:00 [facility] ica Multi-dose 6+ MO Branch Meningococcal B, OMV 2015-12-05 Completed Univ ersity of 00:00:00 [facility] Meningococcal B, OMV 2015-12-05 Completed Univ ersity of 00:00:00 [facility] Influenza Virus 2015-12-05 Completed Universit y of Vaccine Quad IM 3+ 00:00:00 [facility] Influenza Virus 2015-12-05 Completed Universit y of Vaccine Quad IM 00:00:00 [facility] ical Multi-dose 6+ MO Branch Meningococcal B, OMV 2015-12-05 Completed Univ ersity of 00:00:00 [facility] Meningococcal B, OMV 2015-12-05 Completed Univ ersity of 00:00:00 [facility] Influenza Virus 2015-12-05 Completed Universit y of Vaccine Quad IM 3+ 00:00:00 [facility] Influenza Virus 2015-12-05 Completed Universit y of Vaccine Quad IM 00:00:00 [place] Med ical Multi-dose 6+ MO Branch Meningococcal B, OMV 2015-12-05 Completed Univ ersity of 00:00:00 [facility] Meningococcal B, OMV 2015-12-05 Completed Univ ersity of 00:00:00 [facility] Influenza Virus 2015-12-05 Completed Universit y of Vaccine Quad IM 3+ 00:00:00 [facility] Influenza Virus 2015-12-05 Completed Universit y of Vaccine Quad IM 00:00:00 [place] Med ical Multi-dose 6+ MO Branch Meningococcal B, OMV 2015-12-05 Completed Univ ersity of 00:00:00 [facility] Meningococcal B, OMV 2015-12-05 Completed Univ ersity of 00:00:00 [facility] Influenza Virus 2015-12-05 Completed Universit y of Vaccine Quad IM 3+ 00:00:00 [facility] Influenza Virus 2015-12-05 Completed Universit y of Vaccine Quad IM 00:00:00 [place] Med ical Multi-dose 6+ MO Branch Meningococcal B, OMV 2015-12-05 Completed Univ ersity of 00:00:00 [facility] Meningococcal B, OMV 2015-12-05 Completed Univ ersity of 00:00:00 [facility] Influenza Virus 2015-12-05 Completed Universit y of Vaccine Quad IM 3+ 00:00:00 [facility] Influenza Virus 2015-12-05 Completed Universit y of Vaccine Quad IM 00:00:00 [place] Med ical Multi-dose 6+ MO Branch Meningococcal B, OMV 2015-12-05 Completed Univ ersity of 00:00:00 [facility] Meningococcal B, OMV 2015-12-05 Completed Univ ersity of 00:00:00 [facility] Influenza Virus 2015-12-05 Completed Universit y of Vaccine Quad IM 3+ 00:00:00 [facility] Meningococcal B, OMV 2015-12-05 Completed Univ ersity of 00:00:00 [facility] Influenza Virus 2015-12-05 Completed Universit y of Vaccine Quad IM 3+ 00:00:00 [facility] Influenza Virus 2015-12-05 Completed Universit y of Vaccine Quad IM 00:00:00 [place] Med ical Multi-dose 6+ MO Branch Meningococcal B, OMV 2015-12-05 Completed Univ ersity of 00:00:00 [facility] Meningococcal B, OMV 2015-12-05 Completed Univ ersity of 00:00:00 [facility] Influenza Virus 2015-12-05 Completed Universit y of Vaccine Quad IM 3+ 00:00:00 [facility] Influenza Virus 2015-12-05 Completed Universit y of Vaccine Quad IM 00:00:00 [place] Med ical Multi-dose 6+ MO Branch Meningococcal B, OMV 2015-12-05 Completed Univ ersity of 00:00:00 [facility] Meningococcal B, OMV 2015-12-05 Completed Univ ersity of 00:00:00 [facility] Influenza Virus 2015-12-05 Completed Universit y of Vaccine Quad IM 3+ 00:00:00 [facility] Influenza Virus 2015-12-05 Completed Universit y of Vaccine Quad IM 00:00:00 [place] Med ical Multi-dose 6+ MO Branch Meningococcal B, OMV 2015-12-05 Completed Univ ersity of 00:00:00 [facility] Meningococcal B, OMV 2015-12-05 Completed Univ ersity of 00:00:00 [facility] Influenza Virus 2015-12-05 Completed Universit y of Vaccine Quad IM 3+ 00:00:00 [facility] Influenza Virus 2015-12-05 Completed Universit y of Vaccine Quad IM 00:00:00 [place] Med ical Multi-dose 6+ MO Branch Meningococcal B, OMV 2015-12-05 Completed Univ ersity of 00:00:00 [facility] Meningococcal B, OMV 2015-12-05 Completed Univ ersity of 00:00:00 [facility] Influenza Virus 2015-12-05 Completed Universit y of Vaccine Quad IM 3+ 00:00:00 [facility] Influenza Virus 2015-12-05 Completed Universit y of Vaccine Quad IM 00:00:00 [place] Med ical Multi-dose 6+ MO Branch Meningococcal B, OMV 2015-12-05 Completed Univ ersity of 00:00:00 [facility] Influenza Virus 2015-12-05 Completed Universit y of Vaccine Quad IM 00:00:00 [place] Med ical Multi-dose 6+ MO Branch Meningococcal B, OMV 2015-12-05 Completed Univ ersity of 00:00:00 [facility] Influenza Virus 2015-12-05 Completed Universit y of Vaccine Quad IM 3+ 00:00:00 [facility] Meningococcal B, OMV 2015-12-05 Completed Univ ersity of 00:00:00 [facility] Influenza Virus 2015-12-05 Completed Universit y of Vaccine Quad IM 00:00:00 [place] Med ical Multi-dose 6+ MO Branch Meningococcal B, OMV 2015-12-05 Completed Univ ersity of 00:00:00 [facility] Meningococcal B, OMV 2015-12-05 Completed Univ ersity of 00:00:00 [facility] Influenza Virus 2015-12-05 Completed Universit y of Vaccine Quad IM 3+ 00:00:00 [facility] Influenza Virus 2015-12-05 Completed Universit y of Vaccine Quad IM 00:00:00 [place] Med ical Multi-dose 6+ MO Branch Meningococcal B, OMV 2015-12-05 Completed Univ ersity of 00:00:00 [facility] Meningococcal B, OMV 2015-12-05 Completed Univ ersity of 00:00:00 [facility] Influenza Virus 2015-12-05 Completed Universit y of Vaccine Quad IM 3+ 00:00:00 [facility] Influenza Virus 2015-12-05 Completed Universit y of Vaccine Quad IM 00:00:00 [place] Med ical Multi-dose 6+ MO Branch Meningococcal B, OMV 2015-12-05 Completed Univ ersity of 00:00:00 [facility] Meningococcal B, OMV 2015-12-05 Completed Univ ersity of 00:00:00 [facility] Influenza Virus 2015-12-05 Completed Universit y of Vaccine Quad IM 3+ 00:00:00 [facility] Influenza Virus 2015-12-05 Completed Universit y of Vaccine Quad IM 00:00:00 [place] Med ical Multi-dose 6+ MO Branch Meningococcal B, OMV 2015-12-05 Completed Univ ersity of 00:00:00 [facility] Meningococcal B, OMV 2015-12-05 Completed Univ ersity of 00:00:00 [facility] Influenza Virus 2015-12-05 Completed Universit y of Vaccine Quad IM 3+ 00:00:00 [facility] Meningococcal B, OMV 2015-12-05 Completed Univ ersity of 00:00:00 [facility] Influenza Virus 2015-12-05 Completed Universit y of Vaccine Quad IM 3+ 00:00:00 [facility] Influenza Virus 2015-12-05 Completed Universit y of Vaccine Quad IM 00:00:00 [place] Med ical Multi-dose 6+ MO Branch Meningococcal B, OMV 2015-12-05 Completed Univ ersity of 00:00:00 [facility] Meningococcal B, OMV 2015-12-05 Completed Univ ersity of 00:00:00 [facility] Influenza Virus 2015-12-05 Completed Universit y of Vaccine Quad IM 3+ 00:00:00 [facility] Influenza Virus 2015-12-05 Completed Universit y of Vaccine Quad IM 00:00:00 [place] Med ical Multi-dose 6+ MO Branch Meningococcal B, OMV 2015-12-05 Completed Univ ersity of 00:00:00 [facility] Meningococcal B, OMV 2015-12-05 Completed Univ ersity of 00:00:00 [facility] Influenza Virus 2015-12-05 Completed Universit y of Vaccine Quad IM 3+ 00:00:00 [facility] Influenza Virus 2015-12-05 Completed Universit y of Vaccine Quad IM 00:00:00 [place] Med ical Multi-dose 6+ MO Branch Meningococcal B, OMV 2015-12-05 Completed Univ ersity of 00:00:00 [facility] Meningococcal B, OMV 2015-12-05 Completed Univ ersity of 00:00:00 [facility] Influenza Virus 2015-12-05 Completed Universit y of Vaccine Quad IM 3+ 00:00:00 [facility] Influenza Virus 2015-12-05 Completed Universit y of Vaccine Quad IM 00:00:00 [place] Med ical Multi-dose 6+ MO Branch Meningococcal B, OMV 2015-12-05 Completed Univ ersity of 00:00:00 [facility] Meningococcal B, OMV 2015-12-05 Completed Univ ersity of 00:00:00 [facility] Influenza Virus 2015-12-05 Completed Universit y of Vaccine Quad IM 3+ 00:00:00 [facility] Influenza Virus 2015-12-05 Completed Universit y of Vaccine Quad IM 00:00:00 [place] Med ical Multi-dose 6+ MO Branch Meningococcal B, OMV 2015-12-05 Completed Univ ersity of 00:00:00 [facility] Branch Influenza Virus 2014-04-18 Completed Universit y [...] Universit y of Vaccine Quad IM 00:00:00 [place] Med ical Multi-dose 6+ MO Branch Influenza [...] Universit y of Vaccine Quad IM 00:00:00 [place] [facility] ical Multi-dose 6+ MO Branch Influenza Virus 2014-04-18 Completed Universit y of Vaccine Quad IM 00:00:00 [place] [facility] ical Multi-dose 6+ MO Branch Varicella [...] (varivax)(chicken 00:00:00 [place] M edical pox) Branch Influenza Virus 2011-02-27 Completed Universit y of Vaccine 00:00:00 [facility] Meningococcal 2011-02-27 Completed University of Vaccine 00:00:00 [facility] Influenza Virus 2011-02-27 Completed Universit y of Vaccine Quad IM 3+ 00:00:00 [facility] Influenza Virus 2011-02-27 Completed Universit y of Vaccine 00:00:00 [facility] Meningococcal 2011-02-27 Completed University of Vaccine 00:00:00 [facility] Influenza Virus 2011-02-27 Completed Universit y of Vaccine Quad IM 3+ 00:00:00 [facility] Influenza Virus 2011-02-27 Completed Universit y of Vaccine 00:00:00 [facility] Meningococcal 2011-02-27 Completed University of Vaccine 00:00:00 [facility] Influenza Virus 2011-02-27 Completed Universit y of Vaccine Quad IM 3+ 00:00:00 [facility] Influenza Virus 2011-02-27 Completed Universit y of Vaccine 00:00:00 [facility] Meningococcal 2011-02-27 Completed University of Vaccine 00:00:00 [facility] Influenza Virus 2011-02-27 Completed Universit y of Vaccine Quad IM 3+ 00:00:00 [facility] Influenza Virus 2011-02-27 Completed Universit y of Vaccine 00:00:00 [facility] Meningococcal 2011-02-27 Completed University of Vaccine 00:00:00 [facility] Influenza Virus 2011-02-27 Completed Universit y of Vaccine 00:00:00 [facility] Meningococcal 2011-02-27 Completed University of Vaccine 00:00:00 [facility] Influenza Virus 2011-02-27 Completed Universit y of Vaccine Quad IM 3+ 00:00:00 [facility] Influenza Virus 2011-02-27 Completed Universit y of Vaccine 00:00:00 [facility] Meningococcal 2011-02-27 Completed University of Vaccine 00:00:00 [facility] Influenza Virus 2011-02-27 Completed Universit y of Vaccine Quad IM 3+ 00:00:00 [facility] Influenza Virus 2011-02-27 Completed Universit y of Vaccine 00:00:00 [facility] Meningococcal 2011-02-27 Completed University of Vaccine 00:00:00 [facility] Influenza Virus 2011-02-27 Completed Universit y of Vaccine Quad IM 3+ 00:00:00 [facility] Influenza Virus 2011-02-27 Completed Universit y of Vaccine 00:00:00 [facility] Meningococcal 2011-02-27 Completed University of Vaccine 00:00:00 [facility] Influenza Virus 2011-02-27 Completed Universit y of Vaccine Quad IM 3+ 00:00:00 [facility] Influenza Virus 2011-02-27 Completed Universit y of Vaccine 00:00:00 [facility] Meningococcal 2011-02-27 Completed University of Vaccine 00:00:00 [facility] Influenza Virus 2011-02-27 Completed Universit y of Vaccine Quad IM 3+ 00:00:00 [facility] Influenza Virus 2011-02-27 Completed Universit y of Vaccine 00:00:00 [facility] Meningococcal 2011-02-27 Completed University of Vaccine 00:00:00 [facility] Influenza Virus 2011-02-27 Completed Universit y of Vaccine Quad IM 3+ 00:00:00 [facility] Influenza Virus 2011-02-27 Completed Universit y of Vaccine Quad IM 3+ 00:00:00 [facility] Influenza Virus 2011-02-27 Completed Universit y of Vaccine 00:00:00 [facility] Meningococcal 2011-02-27 Completed University of Vaccine 00:00:00 [facility] Influenza Virus 2011-02-27 Completed Universit y of Vaccine Quad IM 3+ 00:00:00 [facility] Influenza Virus 2011-02-27 Completed Universit y of Vaccine 00:00:00 [facility] Meningococcal 2011-02-27 Completed University of Vaccine 00:00:00 [facility] Influenza Virus 2011-02-27 Completed Universit y of Vaccine Quad IM 3+ 00:00:00 [facility] Influenza Virus 2011-02-27 Completed Universit y of Vaccine 00:00:00 [facility] Meningococcal 2011-02-27 Completed University of Vaccine 00:00:00 [facility] Influenza Virus 2011-02-27 Completed Universit y of Vaccine Quad IM 3+ 00:00:00 [facility] Influenza Virus 2011-02-27 Completed Universit y of Vaccine 00:00:00 [facility] Meningococcal 2011-02-27 Completed University of Vaccine 00:00:00 [facility] Influenza Virus 2011-02-27 Completed Universit y of Vaccine Quad IM 3+ 00:00:00 [facility] Influenza Virus 2011-02-27 Completed Universit y of Vaccine 00:00:00 [facility] Meningococcal 2011-02-27 Completed University of Vaccine 00:00:00 [facility] Influenza Virus 2011-02-27 Completed Universit y of Vaccine 00:00:00 [facility] Meningococcal 2011-02-27 Completed University of Vaccine 00:00:00 [facility] Influenza Virus 2011-02-27 Completed Universit y of Vaccine Quad IM 3+ 00:00:00 [facility] Influenza Virus 2011-02-27 Completed Universit y of Vaccine 00:00:00 [facility] Meningococcal 2011-02-27 Completed University of Vaccine 00:00:00 [facility] Influenza Virus 2011-02-27 Completed Universit y of Vaccine Quad IM 3+ 00:00:00 [facility] Influenza Virus 2011-02-27 Completed Universit y of Vaccine 00:00:00 [facility] Meningococcal 2011-02-27 Completed University of Vaccine 00:00:00 [facility] Influenza Virus 2011-02-27 Completed Universit y of Vaccine Quad IM 3+ 00:00:00 [facility] Influenza Virus 2011-02-27 Completed Universit y of Vaccine 00:00:00 [facility] Meningococcal 2011-02-27 Completed University of Vaccine 00:00:00 [facility] Influenza Virus 2011-02-27 Completed Universit y of Vaccine Quad IM 3+ 00:00:00 [facility] Influenza Virus 2011-02-27 Completed Universit y of Vaccine 00:00:00 [facility] Meningococcal 2011-02-27 Completed University of Vaccine 00:00:00 [facility] Influenza Virus 2011-02-27 Completed Universit y of Vaccine Quad IM 3+ 00:00:00 [facility] Influenza Virus 2011-02-27 Completed Universit y of Vaccine Quad IM 3+ 00:00:00 [facility] Influenza Virus 2009-12-14 Completed Universit y of Vaccine Quad IM 3+ 00:00:00 [facility] Influenza Virus 2009-12-14 Completed Universit y of Vaccine Quad IM 3+ 00:00:00 [facility] Influenza Virus 2009-12-14 Completed Universit y of Vaccine Quad IM 3+ 00:00:00 [facility] Influenza Virus 2009-12-14 Completed Universit y of Vaccine Quad IM 3+ 00:00:00 [facility] Influenza Virus 2009-12-14 Completed Universit y of Vaccine Quad IM 3+ 00:00:00 [facility] Influenza Virus 2009-12-14 Completed Universit y of Vaccine Quad IM 3+ 00:00:00 [facility] Influenza Virus 2009-12-14 Completed Universit y of Vaccine Quad IM 3+ 00:00:00 [facility] Influenza Virus 2009-12-14 Completed Universit y of Vaccine Quad IM 3+ 00:00:00 [facility] Influenza Virus 2009-12-14 Completed Universit y of Vaccine Quad IM 3+ 00:00:00 [facility] Influenza Virus 2009-12-14 Completed Universit y of Vaccine Quad IM 3+ 00:00:00 [facility] Influenza Virus 2009-12-14 Completed Universit y of Vaccine Quad IM 3+ 00:00:00 [facility] Influenza Virus 2009-12-14 Completed Universit y of Vaccine Quad IM 3+ 00:00:00 [facility] Influenza Virus 2009-12-14 Completed Universit y of Vaccine Quad IM 3+ 00:00:00 [facility] Influenza Virus 2009-12-14 Completed Universit y of Vaccine Quad IM 3+ 00:00:00 [facility] Influenza Virus 2009-12-14 Completed Universit y of Vaccine Quad IM 3+ 00:00:00 [facility] Influenza Virus 2009-12-14 Completed Universit y of Vaccine Quad IM 3+ 00:00:00 [facility] Influenza Virus 2009-12-14 Completed Universit y of Vaccine Quad IM 3+ 00:00:00 [facility] Influenza Virus 2009-12-14 Completed Universit y of Vaccine Quad IM 3+ 00:00:00 [facility] Influenza Virus 2009-12-14 Completed Universit y of Vaccine Quad IM 3+ 00:00:00 [facility] Influenza Virus 2009-12-14 Completed Universit y of Vaccine Quad IM 3+ 00:00:00 [facility] Influenza Virus 2009-12-14 Completed Universit y of Vaccine Quad IM 3+ 00:00:00 [facility] Influenza Virus 2009-12-12 Completed Universit y of Vaccine 00:00:00 [facility] Influenza Virus 2009-12-12 Completed Universit y of Vaccine 00:00:00 [facility] Influenza Virus 2009-12-12 Completed Universit y of Vaccine 00:00:00 [facility] Influenza Virus 2009-12-12 Completed Universit y of Vaccine 00:00:00 [facility] Influenza Virus 2009-12-12 Completed Universit y of Vaccine 00:00:00 [facility] Influenza Virus 2009-12-12 Completed [facility] 00:00:00 [facility] Influenza Virus 2009-12-12 Completed [facility] Vaccine 00:00:00 [facility] Influenza Virus 2009-12-12 Completed [facility] Vaccine 00:00:00 [facility] Influenza Virus 2009-12-12 Completed [facility] Vaccine 00:00:00 [facility] Influenza Virus 2009-12-12 Completed [facility] Vaccine 00:00:00 [facility] Influenza Virus 2009-12-12 Completed [facility] Vaccine 00:00:00 [facility] Influenza Virus 2009-12-12 Completed [facility] Vaccine 00:00:00 [facility] Influenza Virus 2009-12-12 Completed [facility] Vaccine 00:00:00 [facility] Influenza Virus 2009-12-12 Completed [facility] Vaccine 00:00:00 [facility] Influenza Virus 2009-12-12 Completed [facility] Vaccine 00:00:00 [facility] Influenza Virus 2009-12-12 Completed [facility] Vaccine 00:00:00 [facility] Influenza Virus 2009-12-12 Completed [facility] Vaccine 00:00:00 [facility] Influenza Virus 2009-12-12 Completed [facility] Vaccine 00:00:00 [facility] Influenza Virus 2009-12-12 Completed [facility] Vaccine 00:00:00 [facility] Influenza Virus 2009-12-12 Completed [facility] Vaccine 00:00:00 [facility] Influenza Virus 2009-12-12 Completed [facility] Vaccine 00:00:00 [facility] Influenza Virus 2008-12-12 Completed [facility] Vaccine Quad IM 3+ 00:00:00 [facility] Influenza Virus 2008-12-12 Completed [facility] Vaccine 00:00:00 [facility] TDAP 2008-12-12 Completed [facility] 00:00:00 [facility] Tdap 2008-12-12 Completed [facility] 00:00:00 [facility] Influenza Virus 2008-12-12 Completed [facility] Vaccine Quad IM 3+ 00:00:00 [facility] Influenza Virus 2008-12-12 Completed [facility] Vaccine 00:00:00 [facility] TDAP 2008-12-12 Completed [facility] 00:00:00 [facility] Influenza Virus 2008-12-12 Completed [facility] Vaccine Quad IM 3+ 00:00:00 [facility] Influenza Virus 2008-12-12 Completed [facility] Vaccine 00:00:00 [facility] TDAP 2008-12-12 Completed [facility] 00:00:00 [facility] Influenza Virus 2008-12-12 Completed [facility] Vaccine Quad IM 3+ 00:00:00 [facility] Influenza Virus 2008-12-12 Completed [facility] Vaccine 00:00:00 [facility] TDAP 2008-12-12 Completed [facility] 00:00:00 [facility] Influenza Virus 2008-12-12 Completed [facility] Vaccine Quad IM 3+ 00:00:00 [facility] Influenza Virus 2008-12-12 Completed [facility] Vaccine 00:00:00 [facility] TDAP 2008-12-12 Completed [facility] 00:00:00 [facility] Influenza Virus 2008-12-12 Completed [facility] Vaccine Quad IM 3+ 00:00:00 [facility] Influenza Virus 2008-12-12 Completed [facility] Vaccine Quad IM 3+ 00:00:00 [facility] Influenza Virus 2008-12-12 Completed [facility] Vaccine 00:00:00 [facility] TDAP 2008-12-12 Completed [facility] 00:00:00 [facility] Influenza Virus 2008-12-12 Completed [facility] Vaccine Quad IM 3+ 00:00:00 [facility] Influenza Virus 2008-12-12 Completed [facility] Vaccine 00:00:00 [facility] Tdap 2008-12-12 Completed [facility] 00:00:00 [facility] Influenza Virus 2008-12-12 Completed [facility] Vaccine Quad IM 3+ 00:00:00 [facility] Influenza Virus 2008-12-12 Completed [facility] Vaccine 00:00:00 [facility] Tdap 2008-12-12 Completed [facility] 00:00:00 [facility] Influenza Virus 2008-12-12 Completed [facility] Vaccine Quad IM 3+ 00:00:00 [facility] Influenza Virus 2008-12-12 Completed [facility] Vaccine 00:00:00 [facility] Tdap 2008-12-12 Completed [facility] 00:00:00 [facility] Influenza Virus 2008-12-12 Completed [facility] Vaccine Quad IM 3+ 00:00:00 [facility] Influenza Virus 2008-12-12 Completed [facility] Vaccine 00:00:00 [facility] Influenza Virus 2008-12-12 Completed [facility] Vaccine 00:00:00 [facility] Tdap 2008-12-12 Completed [facility] 00:00:00 [facility] Tdap 2008-12-12 Completed [facility] 00:00:00 [facility] Influenza Virus 2008-12-12 Completed [facility] Vaccine Quad IM 3+ 00:00:00 [facility] Influenza Virus 2008-12-12 Completed [facility] Vaccine 00:00:00 [facility] Tdap 2008-12-12 Completed [facility] 00:00:00 [facility] Influenza Virus 2008-12-12 Completed [facility] Vaccine Quad IM 3+ 00:00:00 [facility] Influenza Virus 2008-12-12 Completed [facility] Vaccine 00:00:00 [facility] TDAP 2008-12-12 Completed [facility] 00:00:00 [facility] Influenza Virus 2008-12-12 Completed [facility] Vaccine Quad IM 3+ 00:00:00 [facility] Influenza Virus 2008-12-12 Completed [facility] Vaccine 00:00:00 [facility] TDAP 2008-12-12 Completed [facility] 00:00:00 [facility] Influenza Virus 2008-12-12 Completed [facility] Vaccine Quad IM 3+ 00:00:00 [facility] Influenza Virus 2008-12-12 Completed [facility] Vaccine 00:00:00 [facility] TDAP 2008-12-12 Completed [facility] 00:00:00 [facility] Influenza Virus 2008-12-12 Completed [facility] Vaccine Quad IM 3+ 00:00:00 [facility] Influenza Virus 2008-12-12 Completed [facility] Vaccine 00:00:00 [facility] TDAP 2008-12-12 Completed [facility] 00:00:00 [facility] Influenza Virus 2008-12-12 Completed [facility] Vaccine Quad IM 3+ 00:00:00 [facility] Influenza Virus 2008-12-12 Completed [facility] Vaccine Quad IM 3+ 00:00:00 [facility] Influenza Virus 2008-12-12 Completed [facility] Vaccine 00:00:00 [facility] TDAP 2008-12-12 Completed [facility] 00:00:00 [facility] Influenza Virus 2008-12-12 Completed [facility] Vaccine Quad IM 3+ 00:00:00 [facility] Influenza Virus 2008-12-12 Completed [facility] Vaccine 00:00:00 [facility] TDAP 2008-12-12 Completed [facility] 00:00:00 [facility] Influenza Virus 2008-12-12 Completed [facility] Vaccine Quad IM 3+ 00:00:00 [facility] Influenza Virus 2008-12-12 Completed [facility] Vaccine 00:00:00 [facility] TDAP 2008-12-12 Completed [facility] 00:00:00 [facility] Influenza Virus 2008-12-12 Completed [facility] Vaccine Quad IM 3+ 00:00:00 [facility] Influenza Virus 2008-12-12 Completed [facility] Vaccine 00:00:00 [facility] TDAP 2008-12-12 Completed [facility] 00:00:00 [facility] Influenza Virus 2008-12-12 Completed [facility] Vaccine 00:00:00 [facility] Influenza Virus 2008-01-26 Completed [facility] Vaccine 00:00:00 [facility] Influenza Virus 2008-01-26 Completed [facility] Vaccine 00:00:00 [facility] Influenza Virus 2008-01-26 Completed [facility] Vaccine 00:00:00 [facility] Influenza Virus 2008-01-26 Completed [facility] Vaccine 00:00:00 [facility] Influenza Virus 2008-01-26 Completed [facility] Vaccine 00:00:00 [facility] Influenza Virus 2008-01-26 Completed [facility] Vaccine 00:00:00 [facility] Influenza Virus 2008-01-26 Completed [facility] Vaccine 00:00:00 [facility] Influenza Virus 2008-01-26 Completed [facility] Vaccine 00:00:00 [facility] Influenza Virus 2008-01-26 Completed [facility] Vaccine 00:00:00 [facility] Influenza Virus 2008-01-26 Completed [facility] Vaccine 00:00:00 [facility] Influenza Virus 2008-01-26 Completed [facility] Vaccine 00:00:00 [facility] Influenza Virus 2008-01-26 Completed [facility] Vaccine 00:00:00 [facility] Influenza Virus 2008-01-26 Completed [facility] Vaccine 00:00:00 [facility] Influenza Virus 2008-01-26 Completed [facility] Vaccine 00:00:00 [facility] Influenza Virus 2008-01-26 Completed [facility] Vaccine 00:00:00 [facility] Influenza Virus 2008-01-26 Completed [facility] Vaccine 00:00:00 [facility] Influenza Virus 2008-01-26 Completed [facility] Vaccine 00:00:00 [facility] Influenza Virus 2008-01-26 Completed [facility] Vaccine 00:00:00 [facility] Influenza Virus 2008-01-26 Completed [facility] Vaccine 00:00:00 [facility] Influenza Virus 2008-01-26 Completed [facility] Vaccine 00:00:00 [facility] Influenza Virus 2008-01-26 Completed [facility] Vaccine 00:00:00 [facility] Influenza Virus 2006-01-27 Completed [facility] Vaccine Quad IM 3+ 00:00:00 [facility] Influenza Virus 2006-01-27 Completed [facility] Vaccine Quad IM 3+ 00:00:00 [facility] Influenza Virus 2006-01-27 Completed [facility] Vaccine Quad IM 3+ 00:00:00 [facility] Influenza Virus 2006-01-27 Completed [facility] Vaccine Quad IM 3+ 00:00:00 [facility] Influenza Virus 2006-01-27 Completed [facility] Vaccine Quad IM 3+ 00:00:00 [facility] Influenza Virus 2006-01-27 Completed [facility] Vaccine Quad IM 3+ 00:00:00 [facility] Influenza Virus 2006-01-27 Completed [facility] Vaccine Quad IM 3+ 00:00:00 [facility] Influenza Virus 2006-01-27 Completed [facility] Vaccine Quad IM 3+ 00:00:00 [facility] Influenza Virus 2006-01-27 Completed [facility] Vaccine Quad IM 3+ 00:00:00 [facility] Influenza Virus 2006-01-27 Completed [facility] Vaccine Quad IM 3+ 00:00:00 [facility] Influenza Virus 2006-01-27 Completed [facility] Vaccine Quad IM 3+ 00:00:00 [facility] Influenza Virus 2006-01-27 Completed [facility] Vaccine Quad IM 3+ 00:00:00 [facility] Influenza Virus 2006-01-27 Completed [facility] Vaccine Quad IM 3+ 00:00:00 [facility] Influenza Virus 2006-01-27 Completed [facility] Vaccine Quad IM 3+ 00:00:00 [facility] Influenza Virus 2006-01-27 Completed [facility] Vaccine Quad IM 3+ 00:00:00 [facility] Influenza Virus 2006-01-27 Completed [facility] Vaccine Quad IM 3+ 00:00:00 [facility] Influenza Virus 2006-01-27 Completed [facility] Vaccine Quad IM 3+ 00:00:00 [facility] Influenza Virus 2006-01-27 Completed [facility] Vaccine Quad IM 3+ 00:00:00 [facility] Influenza Virus 2006-01-27 Completed [facility] Vaccine Quad IM 3+ 00:00:00 [facility] Influenza Virus 2006-01-27 Completed [facility] Vaccine Quad IM 3+ 00:00:00 [facility] Influenza Virus 2006-01-27 Completed [facility] Vaccine Quad IM 3+ 00:00:00 [facility] Influenza Virus 2006-01-23 Completed [facility] Vaccine 00:00:00 [facility] Influenza Virus 2006-01-23 Completed [facility] Vaccine Quad IM 3+ 00:00:00 [facility] Influenza Virus 2006-01-23 Completed [facility] Vaccine 00:00:00 [facility] Influenza Virus 2006-01-23 Completed [facility] Vaccine Quad IM 3+ 00:00:00 [facility] Influenza Virus 2006-01-23 Completed [facility] Vaccine 00:00:00 [facility] Influenza Virus 2006-01-23 Completed [facility] Vaccine Quad IM 3+ 00:00:00 [facility] Influenza Virus 2006-01-23 Completed [facility] Vaccine 00:00:00 [facility] Influenza Virus 2006-01-23 Completed [facility] Vaccine 00:00:00 [facility] Influenza Virus 2006-01-23 Completed [facility] Vaccine Quad IM 3+ 00:00:00 [facility] Influenza Virus 2006-01-23 Completed [facility] Vaccine 00:00:00 [facility] Influenza Virus 2006-01-23 Completed [facility] Vaccine Quad IM 3+ 00:00:00 [facility] Influenza Virus 2006-01-23 Completed [facility] Vaccine 00:00:00 [facility] Influenza Virus 2006-01-23 Completed [facility] Vaccine Quad IM 3+ 00:00:00 [facility] Influenza Virus 2006-01-23 Completed [facility] Vaccine 00:00:00 [facility] Influenza Virus 2006-01-23 Completed [facility] Vaccine Quad IM 3+ 00:00:00 [facility] Influenza Virus 2006-01-23 Completed [facility] Vaccine 00:00:00 [facility] Influenza Virus 2006-01-23 Completed [facility] Vaccine Quad IM 3+ 00:00:00 [facility] Influenza Virus 2006-01-23 Completed [facility] Vaccine 00:00:00 [facility] Influenza Virus 2006-01-23 Completed [facility] Vaccine Quad IM 3+ 00:00:00 [facility] Influenza Virus 2006-01-23 Completed [facility] Vaccine Quad IM 3+ 00:00:00 [facility] Influenza Virus 2006-01-23 Completed [facility] Vaccine 00:00:00 [facility] Influenza Virus 2006-01-23 Completed [facility] Vaccine Quad IM 3+ 00:00:00 [facility] Influenza Virus 2006-01-23 Completed [facility] Vaccine 00:00:00 [facility] Influenza Virus 2006-01-23 Completed [facility] Vaccine Quad IM 3+ 00:00:00 [facility] Influenza Virus 2006-01-23 Completed [facility] Vaccine 00:00:00 [facility] Influenza Virus 2006-01-23 Completed [facility] Vaccine Quad IM 3+ 00:00:00 [facility] Influenza Virus 2006-01-23 Completed [facility] Vaccine 00:00:00 [facility] Influenza Virus 2006-01-23 Completed [facility] Vaccine Quad IM 3+ 00:00:00 [facility] Influenza Virus 2006-01-23 Completed [facility] Vaccine 00:00:00 [facility] Influenza Virus 2006-01-23 Completed [facility] Vaccine 00:00:00 [facility] Influenza Virus 2006-01-23 Completed [facility] Vaccine Quad IM 3+ 00:00:00 [facility] Influenza Virus 2006-01-23 Completed [facility] Vaccine 00:00:00 [facility] Influenza Virus 2006-01-23 Completed [facility] Vaccine Quad IM 3+ 00:00:00 [facility] Influenza Virus 2006-01-23 Completed [facility] Vaccine 00:00:00 [facility] Influenza Virus 2006-01-23 Completed [facility] Vaccine Quad IM 3+ 00:00:00 [facility] Influenza Virus 2006-01-23 Completed [facility] Vaccine 00:00:00 [facility] Influenza Virus 2006-01-23 Completed [facility] Vaccine Quad IM 3+ 00:00:00 [facility] Influenza Virus 2006-01-23 Completed [facility] Vaccine 00:00:00 [facility] Influenza Virus 2006-01-23 Completed [facility] Vaccine Quad IM 3+ 00:00:00 [facility] Influenza Virus 2006-01-23 Completed [facility] Vaccine Quad IM 3+ 00:00:00 [facility] Influenza Virus 2006-01-23 Completed [facility] Vaccine 00:00:00 [facility] Influenza Virus 2006-01-23 Completed [facility] Vaccine Quad IM 3+ 00:00:00 [facility] MMR 2002-10-30 Completed [facility] 00:00:00 [facility] Polio (IPV/OPV) 2002-10-30 Completed [facility] 00:00:00 [facility] 2002-10-30 Completed [facility] 00:00:00 [facility] Polio (IPV/OPV) 2002-10-30 Completed [facility] 00:00:00 [facility] 2002-10-30 Completed [facility] 00:00:00 [facility] Polio (IPV/OPV) 2002-10-30 Completed [facility] 00:00:00 [facility] 2002-10-30 Completed [facility] 00:00:00 [facility] Polio (IPV/OPV) 2002-10-30 Completed [facility] 00:00:00 [facility] 2002-10-30 Completed [facility] 00:00:00 [facility] Polio (IPV/OPV) 2002-10-30 Completed [facility] 00:00:00 [facility] 2002-10-30 Completed [facility] 00:00:00 [facility] Polio (IPV/OPV) 2002-10-30 Completed [facility] 00:00:00 [facility] 2002-10-30 Completed [facility] 00:00:00 [facility] Polio (IPV/OPV) 2002-10-30 Completed [facility] 00:00:00 [facility] 2002-10-30 Completed [facility] 00:00:00 [facility] 2002-10-30 Completed [facility] 00:00:00 [facility] Polio (IPV/OPV) 2002-10-30 Completed [facility] 00:00:00 [facility] Polio (IPV/OPV) 2002-10-30 Completed [facility] 00:00:00 [facility] 2002-10-30 Completed [facility] 00:00:00 [facility] Polio (IPV/OPV) 2002-10-30 Completed [facility] 00:00:00 [facility] 2002-10-30 Completed [facility] 00:00:00 [facility] Polio (IPV/OPV) 2002-10-30 Completed [facility] 00:00:00 [facility] 2002-10-30 Completed [facility] 00:00:00 [facility] Polio (IPV/OPV) 2002-10-30 Completed [facility] 00:00:00 [facility] 2002-10-30 Completed [facility] 00:00:00 [facility] Polio (IPV/OPV) 2002-10-30 Completed [facility] 00:00:00 [facility] 2002-10-30 Completed [facility] 00:00:00 [facility] Polio (IPV/OPV) 2002-10-30 Completed [facility] 00:00:00 [facility] 2002-10-30 Completed [facility] 00:00:00 [facility] Polio (IPV/OPV) 2002-10-30 Completed [facility] 00:00:00 [facility] 2002-10-30 Completed [facility] 00:00:00 [facility] Polio (IPV/OPV) 2002-10-30 Completed [facility] 00:00:00 [facility] 2002-10-30 Completed [facility] 00:00:00 [facility] Polio (IPV/OPV) 2002-10-30 Completed [facility] 00:00:00 [facility] 2002-10-30 Completed [facility] 00:00:00 [facility] Polio (IPV/OPV) 2002-10-30 Completed [facility] 00:00:00 [facility] 2002-10-30 Completed [facility] 00:00:00 [facility] Polio (IPV/OPV) 2002-10-30 Completed [facility] 00:00:00 [facility] 2002-10-30 Completed [facility] 00:00:00 [facility] Polio (IPV/OPV) 2002-10-30 Completed [facility] 00:00:00 [facility] 2002-10-30 Completed [facility] 00:00:00 [facility] Polio (IPV/OPV) 2002-10-30 Completed [facility] 00:00:00 [facility] Varicella 2000-11-16 Completed [facility] of (varivax)(chicken 00:00:00 [...] [facility] DTAP 1999-01-07 Completed [facility] 00:00:00 [facility] Polio (IPV/OPV) 1999-01-07 Completed [facility] 00:00:00 [facility] DTAP 1999-01-07 Completed [facility] 00:00:00 [facility] Polio (IPV/OPV) 1999-01-07 Completed [facility] 00:00:00 [facility] DTAP 1999-01-07 Completed [facility] 00:00:00 [facility] Polio (IPV/OPV) 1999-01-07 Completed [facility] 00:00:00 [facility] DTAP 1999-01-07 Completed [facility] 00:00:00 [facility] Polio (IPV/OPV) 1999-01-07 Completed [facility] 00:00:00 [facility] DTAP 1999-01-07 Completed [facility] 00:00:00 [facility] Polio (IPV/OPV) 1999-01-07 Completed [facility] 00:00:00 [facility] DTAP 1999-01-07 Completed [facility] 00:00:00 [facility] Polio (IPV/OPV) 1999-01-07 Completed [facility] 00:00:00 [facility] DTAP 1999-01-07 Completed [facility] 00:00:00 [facility] DTAP 1999-01-07 Completed [facility] 00:00:00 [facility] Polio (IPV/OPV) 1999-01-07 Completed [facility] 00:00:00 [facility] DTAP 1999-01-07 Completed [facility] 00:00:00 [facility] Polio (IPV/OPV) 1999-01-07 Completed [facility] 00:00:00 [facility] Polio (IPV/OPV) 1999-01-07 Completed [facility] 00:00:00 [facility] DTAP 1999-01-07 Completed [facility] 00:00:00 [facility] Polio (IPV/OPV) 1999-01-07 Completed [facility] 00:00:00 [facility] DTAP 1999-01-07 Completed [facility] 00:00:00 [facility] Polio (IPV/OPV) 1999-01-07 Completed [facility] 00:00:00 [facility] DTAP 1999-01-07 Completed [facility] 00:00:00 [facility] Polio (IPV/OPV) 1999-01-07 Completed [facility] 00:00:00 [facility] DTAP 1999-01-07 Completed [facility] 00:00:00 [facility] Polio (IPV/OPV) 1999-01-07 Completed [facility] 00:00:00 [facility] DTAP 1999-01-07 Completed [facility] 00:00:00 [facility] Polio (IPV/OPV) 1999-01-07 Completed [facility] 00:00:00 [facility] DTAP 1999-01-07 Completed [facility] 00:00:00 [facility] Polio (IPV/OPV) 1999-01-07 Completed [facility] 00:00:00 [facility] DTAP 1999-01-07 Completed [facility] 00:00:00 [facility] Polio (IPV/OPV) 1999-01-07 Completed [facility] 00:00:00 [facility] DTAP 1999-01-07 Completed [facility] 00:00:00 [facility] Polio (IPV/OPV) 1999-01-07 Completed [facility] 00:00:00 [facility] DTAP 1999-01-07 Completed [facility] 00:00:00 [facility] DTAP 1999-01-07 Completed [facility] 00:00:00 [facility] Polio (IPV/OPV) 1999-01-07 Completed [facility] 00:00:00 [facility] Polio (IPV/OPV) 1999-01-07 Completed [facility] 00:00:00 [facility] DTAP 1999-01-07 Completed [facility] 00:00:00 [facility] Polio (IPV/OPV) 1999-01-07 Completed [facility] 00:00:00 [facility] DTAP 1999-01-07 Completed [facility] 00:00:00 [facility] Polio (IPV/OPV) 1999-01-07 Completed [facility] 00:00:00 [facility] HIB 3 Dose Schedule 1998-09-19 Completed [facility] 00:00:00 [facility] Hep B, Adol or Pedi 1998-09-19 Completed [facility] Dosage 00:00:00 [facility] HIB 3 Dose Schedule 1998-09-19 Completed [facility] 00:00:00 [facility] Hep B, Adol or Pedi 1998-09-19 Completed [...] 1998-09-19 Completed [facility] Dosage 00:00:00 [facility] MMR 1998-06-27 Completed [facility] 00:00:00 [facility] MMR 1998-06-27 Completed [facility] 00:00:00 [...] Branch MMR 1998-06-27 Completed [facility] 00:00:00 [facility] DTAP 1998-02-26 Completed [facility] 00:00:00 [facility] DTAP 1998-02-26 Completed [facility] 00:00:00 [facility] DTAP 1998-02-26 Completed [facility] 00:00:00 [facility] DTAP 1998-02-26 Completed [facility] 00:00:00 [facility] DTAP 1998-02-26 Completed [facility] 00:00:00 [facility] DTAP 1998-02-26 Completed [facility] 00:00:00 [facility] DTAP 1998-02-26 Completed [facility] 00:00:00 [facility] DTAP 1998-02-26 Completed [facility] 00:00:00 [facility] DTAP 1998-02-26 Completed [facility] 00:00:00 [facility] DTAP 1998-02-26 Completed [facility] 00:00:00 [facility] DTAP 1998-02-26 Completed [facility] 00:00:00 [facility] DTAP 1998-02-26 Completed [facility] 00:00:00 [facility] DTAP 1998-02-26 Completed [facility] 00:00:00 [facility] DTAP 1998-02-26 Completed [facility] 00:00:00 [facility] DTAP 1998-02-26 Completed [facility] 00:00:00 [facility] DTAP 1998-02-26 Completed [facility] 00:00:00 [facility] DTAP 1998-02-26 Completed [facility] 00:00:00 [facility] DTAP 1998-02-26 Completed [facility] 00:00:00 [facility] DTAP 1998-02-26 Completed [facility] 00:00:00 [facility] DTAP 1998-02-26 Completed [facility] of 00:00:00 [facility] DTAP 1998-02-26 Completed [facility] 00:00:00 [facility] DTAP 1997 Completed University of 00:00:00 [facility] HIB 3 Dose Schedule 1997 Completed Unive rsity of 00:00:00 [facility] Hep B, Adol or Pedi 1997 Completed Unive rsity of Dosage 00:00:00 [facility] Polio (IPV/OPV) 1997 Completed Universit y [facility] 00:00:00 [facility] DTAP 1997 Completed [facility] 00:00:00 [facility] HIB 3 Dose Schedule 1997 Completed Unive rsity of 00:00:00 [facility] Hep B, Adol or Pedi 1997 Completed Unive rsity of Dosage 00:00:00 [facility] Polio (IPV/OPV) 1997 Completed Universit y [facility] 00:00:00 [facility] DTAP 1997 Completed University [facility] 00:00:00 [facility] HIB 3 Dose Schedule 1997 Completed Unive rsity of 00:00:00 [facility] Hep B, Adol or Pedi 1997 Completed Unive rsity of Dosage 00:00:00 [facility] Polio (IPV/OPV) 1997 Completed Universit y [facility] 00:00:00 [facility] DTAP 1997 Completed [facility] 00:00:00 [facility] HIB 3 Dose Schedule 1997 Completed Unive rsity of 00:00:00 [facility] Hep B, Adol or Pedi 1997 Completed Unive rsity of Dosage 00:00:00 [facility] Polio (IPV/OPV) 1997 Completed Universit y [facility] 00:00:00 [facility] DTAP 1997 Completed [facility] 00:00:00 [facility] HIB 3 Dose Schedule 1997 Completed Unive rsity of 00:00:00 [facility] Hep B, Adol or Pedi 1997 Completed Unive rsity of Dosage 00:00:00 [facility] Polio (IPV/OPV) 1997 Completed [facility]it y [facility] 00:00:00 [facility] DTAP 1997 Completed [facility] 00:00:00 [facility] HIB 3 Dose Schedule 1997 Completed Unive rsity of 00:00:00 [facility] Hep B, Adol or Pedi 1997 Completed Unive rsity of Dosage 00:00:00 [facility] DTAP 1997 Completed [facility] 00:00:00 [facility] Polio (IPV/OPV) 1997 Completed [facility] 00:00:00 [facility] HIB 3 Dose Schedule 1997 Completed Unive rsity of 00:00:00 [facility] DTAP 1997 Completed [facility] 00:00:00 [facility] HIB 3 Dose Schedule 1997 Completed Unive rsity of 00:00:00 [facility] Hep B, Adol or Pedi 1997 Completed Unive rsity of Dosage 00:00:00 [facility] Hep B, Adol or Pedi 1997 Completed Unive rsity of Dosage 00:00:00 [facility] Polio (IPV/OPV) 1997 Completed Universit y of 00:00:00 [facility] DTAP 1997 Completed [facility] 00:00:00 [facility] HIB 3 Dose Schedule 1997 Completed Unive rsity of 00:00:00 [facility] Hep B, Adol or Pedi 1997 Completed Unive rsity of Dosage 00:00:00 [facility] Polio (IPV/OPV) 1997 Completed [facility]it [facility] 00:00:00 [facility] Polio (IPV/OPV) 1997 Completed [facility] 00:00:00 [facility] DTAP 1997 Completed [facility] 00:00:00 [facility] HIB 3 Dose Schedule 1997 Completed Unive rsity of 00:00:00 [facility] Hep B, Adol or Pedi 1997 Completed Unive rsity of Dosage 00:00:00 [facility] Polio (IPV/OPV) 1997 Completed [facility]it [facility] 00:00:00 [facility] DTAP 1997 Completed [facility] 00:00:00 [facility] HIB 3 Dose Schedule 1997 Completed Unive rsity of 00:00:00 [facility] Hep B, Adol or Pedi 1997 Completed Unive rsity of Dosage 00:00:00 [facility] Polio (IPV/OPV) 1997 Completed [facility] 00:00:00 [facility] DTAP 1997 Completed [facility] 00:00:00 [facility] HIB 3 Dose Schedule 1997 Completed Unive rsity of 00:00:00 [facility] Hep B, Adol or Pedi 1997 Completed Unive rsity of Dosage 00:00:00 [facility] Polio (IPV/OPV) 1997 Completed [facility] 00:00:00 [facility] DTAP 1997 Completed [facility] 00:00:00 [facility] HIB 3 Dose Schedule 1997 Completed Unive rsity of 00:00:00 [facility] Hep B, Adol or Pedi 1997 Completed Unive rsity of Dosage 00:00:00 [facility] Polio (IPV/OPV) 1997 Completed [facility] 00:00:00 [facility] DTAP 1997 Completed [facility] 00:00:00 [facility] HIB 3 Dose Schedule 1997 Completed Unive rsity of 00:00:00 [facility] Hep B, Adol or Pedi 1997 Completed Unive rsity of Dosage 00:00:00 [facility] Polio (IPV/OPV) 1997 Completed [facility] 00:00:00 [facility] DTAP 1997 Completed [facility] 00:00:00 [facility] HIB 3 Dose Schedule 1997 Completed Unive rsity of 00:00:00 [facility] Hep B, Adol or Pedi 1997 Completed Unive rsity of Dosage 00:00:00 [facility] Polio (IPV/OPV) 1997 Completed [facility] 00:00:00 [facility] DTAP 1997 Completed [facility] 00:00:00 [facility] HIB 3 Dose Schedule 1997 Completed Unive rsity of 00:00:00 [facility] Hep B, Adol or Pedi 1997 Completed Unive rsity of Dosage 00:00:00 [facility] Polio (IPV/OPV) 1997 Completed [facility] 00:00:00 [facility] DTAP 1997 Completed [facility] 00:00:00 [facility] DTAP 1997 Completed [facility] 00:00:00 [facility] HIB 3 Dose Schedule 1997 Completed Unive rsity of 00:00:00 [facility] Hep B, Adol or Pedi 1997 Completed Unive rsity of Dosage 00:00:00 [facility] Polio (IPV/OPV) 1997 Completed [facility] 00:00:00 [facility] HIB 3 Dose Schedule 1997 Completed Unive rsity of 00:00:00 [facility] Hep B, Adol or Pedi 1997 Completed Unive rsity of Dosage 00:00:00 [facility] DTAP 1997 Completed [facility] 00:00:00 [facility] HIB 3 Dose Schedule 1997 Completed Unive rsity of 00:00:00 [facility] Hep B, Adol or Pedi 1997 Completed Unive rsity of Dosage 00:00:00 [facility] Polio (IPV/OPV) 1997 Completed [facility] 00:00:00 [facility] Polio (IPV/OPV) 1997 Completed [facility] 00:00:00 [facility] DTAP 1997 Completed [facility] 00:00:00 [facility] HIB 3 Dose Schedule 1997 Completed Unive rsity of 00:00:00 [facility] Hep B, Adol or Pedi 1997 Completed Unive rsity of Dosage 00:00:00 [facility] Polio (IPV/OPV) 1997 Completed [facility] 00:00:00 [facility] DTAP 1997 Completed [facility] 00:00:00 [facility] HIB 3 Dose Schedule 1997 Completed Unive rsity of 00:00:00 [facility] Hep B, Adol or Pedi 1997 Completed Unive rsity of Dosage 00:00:00 [facility] Polio (IPV/OPV) 1997 Completed [facility] 00:00:00 [facility] DTAP 1997 Completed [facility] 00:00:00 [facility] HIB 3 Dose Schedule 1997 Completed Unive rsity of 00:00:00 [facility] Hep B, Adol or Pedi 1997 Completed Unive rsity of Dosage 00:00:00 [facility] DTAP 1997 Completed [facility] 00:00:00 [facility] HIB 3 Dose Schedule 1997 Completed Unive rsity of 00:00:00 [facility] Hep B, Adol or Pedi 1997 Completed Unive rsity of Dosage 00:00:00 [facility] DTAP 1997 Completed [facility] 00:00:00 [facility] HIB 3 Dose Schedule 1997 Completed [facility]ive rsity of 00:00:00 [facility] Hep B, Adol or Pedi 1997 Completed Unive rsity of Dosage 00:00:00 [facility] DTAP 1997 Completed [facility] of 00:00:00 [facility] HIB 3 Dose Schedule 1997 Completed Unive rsity of 00:00:00 [facility] Hep B, Adol or Pedi 1997 Completed Unive rsity of Dosage 00:00:00 [facility] DTAP 1997 Completed [facility] 00:00:00 [facility] HIB 3 Dose Schedule 1997 Completed Unive rsity of 00:00:00 [facility] Hep B, Adol or Pedi 1997 Completed Unive rsity of Dosage 00:00:00 [facility] DTAP 1997 Completed [facility] 00:00:00 [facility] DTAP 1997 Completed [facility] 00:00:00 [facility] HIB 3 Dose Schedule 1997 Completed [facility]ive rsity of 00:00:00 [facility] Hep B, Adol or Pedi 1997 Completed Unive rsity of Dosage 00:00:00 [facility] HIB 3 Dose Schedule 1997 Completed [facility]ive rsity of 00:00:00 [facility] DTAP 1997 Completed [facility] 00:00:00 [facility] HIB 3 Dose Schedule 1997 Completed [facility]ive rsity of 00:00:00 [facility] Hep B, Adol or Pedi 1997 Completed Unive rsity of Dosage 00:00:00 [facility] Hep B, Adol or Pedi 1997 Completed Unive rsity of Dosage 00:00:00 [facility] DTAP 1997 Completed [facility] 00:00:00 [facility] HIB 3 Dose Schedule 1997 Completed [facility]ive rsity of 00:00:00 [facility] Hep B, Adol or Pedi 1997 Completed Unive rsity of Dosage 00:00:00 [facility] DTAP 1997 Completed [facility] of 00:00:00 [facility] HIB 3 Dose Schedule 1997 Completed [facility]ive rsity of 00:00:00 [facility] Hep B, Adol or Pedi 1997 Completed Unive rsity of Dosage 00:00:00 [facility] DTAP 1997 Completed [facility] 00:00:00 [facility] HIB 3 Dose Schedule 1997 Completed [facility]ive rsity of 00:00:00 [facility] Hep B, Adol or Pedi 1997 Completed Unive rsity of Dosage 00:00:00 [facility] DTAP 1997 Completed [facility] 00:00:00 [facility] HIB 3 Dose Schedule 1997 Completed Unive rsity of 00:00:00 [facility] Hep B, Adol or Pedi 1997 Completed Unive rsity of Dosage 00:00:00 [facility] DTAP 1997 Completed [facility] 00:00:00 [facility] HIB 3 Dose Schedule 1997 Completed Unive rsity of 00:00:00 [facility] Hep B, Adol or Pedi 1997 Completed [facility]ive rsity of Dosage 00:00:00 [facility] DTAP 1997 Completed [facility] 00:00:00 [facility] HIB 3 Dose Schedule 1997 Completed [facility]ive rsity of 00:00:00 [facility] Hep B, Adol or Pedi 1997 Completed Unive rsity of Dosage 00:00:00 [facility] DTAP 1997 Completed [facility] 00:00:00 [facility] HIB 3 Dose Schedule 1997 Completed [facility]ive rsity of 00:00:00 [facility] Hep B, Adol or Pedi 1997 Completed Unive rsity of Dosage 00:00:00 [facility] DTAP 1997 Completed [facility] 00:00:00 [facility] HIB 3 Dose Schedule 1997 Completed [facility]ive rsity of 00:00:00 [facility] Hep B, Adol or Pedi 1997 Completed Unive rsity of Dosage 00:00:00 [facility] DTAP 1997 Completed [facility] 00:00:00 [facility] DTAP 1997 Completed [facility] 00:00:00 [facility] HIB 3 Dose Schedule 1997 Completed [facility]ive rsity of 00:00:00 [facility] Hep B, Adol or Pedi 1997 Completed Unive rsity of Dosage 00:00:00 [facility] HIB 3 Dose Schedule 1997 Completed [facility]ive rsity of 00:00:00 [facility] DTAP 1997 Completed [facility] 00:00:00 [facility] HIB 3 Dose Schedule 1997 Completed [facility]ive rsity of 00:00:00 [facility] Hep B, Adol or Pedi 1997 Completed Unive rsity of Dosage 00:00:00 [facility] Hep B, Adol or Pedi 1997 Completed [facility]ive rsity of Dosage 00:00:00 [facility] DTAP 1997 Completed [facility] 00:00:00 [facility] HIB 3 Dose Schedule 1997 Completed [facility]ive rsity of 00:00:00 [facility] Hep B, Adol or Pedi 1997 Completed [facility]ive rsity of Dosage 00:00:00 [facility] DTAP 1997 Completed [facility] 00:00:00 [facility] HIB 3 Dose Schedule 1997 Completed [facility]ive rsity of 00:00:00 [facility] Hep B, Adol or Pedi 1997 Completed Unive rsity of Dosage 00:00:00 [facility] Polio (IPV/OPV) 1997 Completed [facility] 00:00:00 [facility] Polio (IPV/OPV) 1997 Completed [facility] 00:00:00 [facility] Polio (IPV/OPV) 1997 Completed [facility] 00:00:00 [facility] Polio (IPV/OPV) 1997 Completed [facility] 00:00:00 [facility] Polio (IPV/OPV) 1997 Completed [facility] 00:00:00 [facility] Polio (IPV/OPV) 1997 Completed [facility] of 00:00:00 [facility] Polio (IPV/OPV) 1997 Completed [facility] of 00:00:00 [facility] Polio (IPV/OPV) 1997 Completed [facility] 00:00:00 [facility] Polio (IPV/OPV) 1997 Completed [facility] 00:00:00 [facility] Polio (IPV/OPV) 1997 Completed [facility] of 00:00:00 [facility] Polio (IPV/OPV) 1997 Completed [facility] of 00:00:00 [facility] Polio (IPV/OPV) 1997 Completed [facility] of 00:00:00 [facility] Polio (IPV/OPV) 1997 Completed [facility] 00:00:00 [facility] Polio (IPV/OPV) 1997 Completed [facility] 00:00:00 [facility] Polio (IPV/OPV) 1997 Completed [facility] 00:00:00 [facility] Polio (IPV/OPV) 1997 Completed [facility] 00:00:00 [facility] Polio (IPV/OPV) 1997 Completed [facility] 00:00:00 [facility] Polio (IPV/OPV) 1997 Completed [facility] 00:00:00 [facility] Polio (IPV/OPV) 1997 Completed [facility] 00:00:00 [facility] Polio (IPV/OPV) 1997 Completed [facility] 00:00:00 [facility] Polio (IPV/OPV) 1997 Completed [facility] 00:00:00 [facility] Vital Signs Vital Name Observation Time Observation Value Comments Source BP Diastolic 2021-04-19 00:00:00 76 mm[Hg] [place] [facility] Height 2021-04-19 00:00:00 61 [in_i] [place] [facility] BMI (Body Mass 2021-04-19 00:00:00 24[facility]9 [facility] BP Systolic 2021-04-19 00:00:00 125 mm[Hg] [place] [facility] Body Weight 2021-04-19 00:00:00 132 [lb_av] [place] [facility] BP Diastolic 2020-09-12 00:00:00 55 mm[Hg] [place] [facility] Height 2020-09-12 00:00:00 61 [in_i] [place] [facility] BMI (Body Mass 2020-09-12 00:00:00 24.6 kg/m2 [place] coloring checker Index) [facility] BP Systolic 2020-09-12 00:00:00 109 mm[Hg] [place] [facility] Body Weight 2020-09-12 00:00:00 2083 [oz_av] [place] [facility] Systolic blood 2020-04-04 22:53:00 107 mm[Hg] Univer [facility]ity of pressure [facility] Diastolic blood 2020-04-04 22:53:00 73 mm[Hg] [facility] pressure [facility] Heart rate 2020-04-04 22:53:00 81 /min [facility] Body temperature 2020-04-04 22:53:00 37.22 Roxanne [facility] Respiratory rate 2020-04-04 22:53:00 16 /min [facility] Body height 2020-04-04 22:53:00 154.9 cm [facility] Body weight 2020-04-04 22:53:00 54.432 kg [facility] BMI 2020-04-04 22:53:00 22.67 kg/m2 [facility] Oxygen saturation in 2020-04-04 22:53:00 95 /min [facility] of Arterial blood by [place] [facility] Systolic blood 2020-04-04 22:53:00 107 mm[Hg] Univer sity of pressure [facility] Diastolic blood 2020-04-04 22:53:00 73 mm[Hg] Unive [facility]ity of pressure [facility] Heart rate 2020-04-04 22:53:00 81 /min [facility] Body temperature 2020-04-04 22:53:00 37.22 Roxanne [facility] Respiratory rate 2020-04-04 22:53:00 16 /min [facility] Body height 2020-04-04 22:53:00 154.9 cm [facility] Body weight 2020-04-04 22:53:00 54.432 kg [facility] BMI 2020-04-04 22:53:00 22.67 kg/m2 [facility] Oxygen saturation in 2020-04-04 22:53:00 95 /min [facility] of Arterial blood by [employer] [facility] Systolic blood 2020-04-01 11:02:00 113 mm[Hg] Univer [facility]ity of pressure [facility] Diastolic blood 2020-04-01 11:02:00 58 mm[Hg] Unive rsity of pressure [facility] Heart rate 2020-04-01 11:02:00 71 /min [facility] Respiratory rate 2020-04-01 11:02:00 16 /min Univ ersity of [facility] Oxygen saturation in 2020-04-01 11:02:00 95 /min [facility] Arterial blood by [place] [facility] Body temperature 2020-04-01 09:09:00 36.89 Roxanne Univ ersity of [facility] Body height 2020-04-01 05:45:00 152.4 cm [facility] Body weight 2020-04-01 05:45:00 54.432 kg Universi ty of [facility] BMI 2020-04-01 05:45:00 23.44 kg/m2 [facility] Systolic blood 2020-04-01 11:02:00 113 mm[Hg] Univer sity of pressure [facility] Diastolic blood 2020-04-01 11:02:00 58 mm[Hg] Unive rsity of pressure [facility] Heart rate 2020-04-01 11:02:00 71 /min [facility] of [facility] Respiratory rate 2020-04-01 11:02:00 16 /min Univ ersity of [facility] Oxygen saturation in 2020-04-01 11:02:00 95 /min [facility] Arterial blood by [place] [facility] Body temperature 2020-04-01 09:09:00 36.89 Roxanne [facility] Body height 2020-04-01 05:45:00 152.4 cm [facility] Body weight 2020-04-01 05:45:00 54.432 kg [facility] BMI 2020-04-01 05:45:00 23.44 kg/m2 [facility] BP Diastolic 2020-02-01 00:00:00 62 mm[Hg] [place] [facility] Height 2020-02-01 00:00:00 61 [in_i] [place] [facility] BMI (Body Mass 2020-02-01 00:00:00 22.9 kg/m2 [place] coloring checker Index) [facility] BP Systolic 2020-02-01 00:00:00 106 mm[Hg] [place] [facility] Body Weight 2020-02-01 00:00:00 1942 [oz_av] [place] [facility] BP Diastolic 2020-01-04 00:00:00 64 mm[Hg] [place] [facility] Height 2020-01-04 00:00:00 61 [in_i] [place] [facility] BMI (Body Mass 2020-01-04 00:00:00 22.5 kg/m2 [place] coloring checker Index) [facility] BP Systolic 2020-01-04 00:00:00 112 mm[Hg] [place] [facility] Body Weight 2020-01-04 00:00:00 1905 [oz_av] [place] [facility] BP Diastolic 2019-12-07 00:00:00 61 mm[Hg] [place] [facility] Height 2019-12-07 00:00:00 61 [in_i] [place] [facility] BMI (Body Mass 2019-12-07 00:00:00 23.3 kg/m2 [place] coloring checker Index) [facility] BP Systolic 2019-12-07 00:00:00 122 mm[Hg] [place] [facility] Body Weight 2019-12-07 00:00:00 1974 [oz_av] [place] [facility] BP Diastolic 2019-11-30 00:00:00 68 mm[Hg] [place] [facility] Height 2019-11-30 00:00:00 61 [in_i] [place] [facility] BMI (Body Mass 2019-11-30 00:00:00 22.7 kg/m2 [facility] coloring checker Index) [facility] BP Systolic 2019-11-30 00:00:00 114 mm[Hg] [place] [facility] Body Weight 2019-11-30 00:00:00 1923 [oz_av] [place] [facility] Systolic blood 2019-08-18 08:21:00 125 mm[Hg] Univer sity [facility] Diastolic blood 2019-08-18 08:21:00 63 [facility]Hg[facility]-08-18 08:21:00 73 /min [facility] Body temperature 2019-08-18 08:21:00 37.11 Roxanne [facility] 2019-08-18 08:21:00 20 /min [facility] Body height 2019-08-18 08:21:00 154.9 cm [facility] Body weight 2019-08-18 08:21:00 58.968 kg [facility] BMI 2019-08-18 08:21:00 24.56 kg/m2 [facility] Oxygen saturation in 2019-08-18 08:21:00 100 /min [facility] Arterial blood by [facility] Pulse oximetry Branch Procedures Procedure Date / Time Performing Clinician Source Performed VACCINATIONS - 2021-10-07 05:01:00 Doctor Unassigned, No [facility] CONSENTS, ELIGIBILITY, Name [facility] HISTORY US, transvaginal 2020-09-12 00:00:00 [place] [facility] CHEST PULMONARY 2020-04-01 07:54:[address] [facility] ANGIOGRAM Medical Branch D-DIMER 2020-04-01 07:00:00 Rodrigo Brewster [facility] POCT TEST 2020-04-01 06:45:00 Rodrigo Brewster [facility] BLOOD CULTURE SCREEN 2020-04-01 06:38:00 Rodrigo Brewster [facility] TROPONIN I 2020-04-01 06:27:00 [place], K [facility] COMP. METABOLIC PANEL 2020-04-01 06:27:00 Rodrigo Brewster [facility] ([id number]) [facility] CBC WITH DIFF 2020-04-01 06:27:00 Irma, [facility] URINALYSIS 2020-04-01 06:27:00 [place], K [facility] COVID-19 (ID NOW RAPID 2020-04-01 06:27:00 Rodrigo Brewster [facility] TESTING) [facility] LACTIC ACID WHOLE BLOOD 2020-04-01 06:26:00 [place], K [facility] CONSENT/REFUSAL FOR 2020-04-01 05:34:16 Doctor Unassigned, No [facility] DIAGNOSIS AND TREATMENT Name [facility] XR SHOULDER <2 VW RIGHT 2019-08-18 09:03:52 Kayode [facility] ASSIGNMENT OF BENEFITS 2019-08-18 08:11:25 Doctor Unassigned, No [facility] Name [facility] Procedure on Heart [place] [facility] Plan of Care Planned Activity Planned Date Details Comments Source Goal Plan of Care Note [code = 42438-0] Encounters Start End Encounter Admission Attending Care Care Encounter Source Date/Time Date/Time Type Type Clinicians Facility Department ID 2020-12-29 Emergency [facility] [id number] [facility] 21:40:51 ity [facility] 2020-12-29 Emergency [facility] [id number] Univers 20:46:50 [facility] 2021-12-31 2021-12-31 Outpatient AMBREEN_FAR [facility] [phone] [place] 00:00:00 00:00:00 KYLE da [facility] Outre h Program 2021-10-07 2021-10-07 Orders Doctor FOLEY 1.2.840.114 [id number] Univers 00:00:00 00:00:00 Only Unassigned, SOLIS 350.1.13.10 ity of [place] [facility] 4.2.7.2.686 Cory as [id number] [address] 2021-09-12 2021-09-12 Outpatient [id number] 00:00:00 00:00:00 Visit [id number] 2021-05-24 2021-05-24 Outpatient AMBREEN_FAR [facility] 109 879 [place] 05:47:00 05:47:00 [facility]NA [facility] 2021-04-24 2021-04-24 Outpatient AMBREEN_FAR [facility] 109 879 [place] 02:44:00 02:44:00 HANA [facility] 2021-04-19 2021-04-19 Outpatient AMBREEN_FAR [facility] 109 [place] 11:41:00 11:41:00 HANA [facility] 2021-04-19 2021-04-19 [facility] [place] [facility] [id number] [place] 00:00:00 00:00:00 MD Robert: Karen cat 07050 Scientologist Episc op 59 [facility] [address] , Ph. 2020-10-12 2020-10-12 Outpatient AMBREEN_FAR [facility] 109 879 [place] 12:11:00 12:11:00 HAN 14035 [facility] 2020-10-12 2020-10-12 Stefan Riana [facility] [place] - [id number] [place] 00:00:00 00:00:00 MD Robert: Karen cat 1700 Scientologist Episco p Ramos [facility] [address] h , Ph. Program (871) 2020-09-12 2020-09-12 Outpatient AMBREEN_FAR [facility] 109 879- [place] 05:10:00 05:10:00 HANA 70267 [facility] 2020-09-12 2020-09-12 Ely Mayers [facility] [place] - [id number] M at[place]or 00:00:00 00:00:00 JEFE Pacheco: Karen cat [address] [place] Scientologist Episc op 59 [facility] A, [facility] [place] Program [address] , Ph. 2020-08-29 2020-08-29 Outpatient AMBREEN_FAR [facility] 109 87 [place] 04:15:00 04:15:00 HANA 02443 [facility] 2020-08-29 2020-08-29 Longmarysol [facility] [place] - [id number] M at[place] 00:00:00 00:00:00 Karen Day EMPLOYEE RELATIONS ASSISTANT: 89162 Scientologist Epi scop [place] 59 [facility] [address], [facility] [place] Program [address] , Ph. 2020-08-02 2020-08-02 Outpatient AMBREEN_FAR [facility] 109 [place] 01:02:00 01:02:00 HANA 44567 [facility] 2020-08-01 2020-08-01 Outpatient AMBREEN_FAR [facility] 109 87 [place] 04:57:00 04:57:00 HANA 91011 [facility] 2020-08-01 2020-08-01 Long [facility] [place] - [id number] M at[place]or 00:00:00 00:00:00 Karen Day EMPLOYEE RELATIONS ASSISTANT: 1700 Scientologist Epis nuclear spectroscopist Ramos [facility] [address] h , Ph. Program (253) 2020-06-27 2020-06-27 Outpatient AMBREEN_FAR [facility] 109 879- [place] 01:05:00 01:05:00 SARINAA 76967 [facility] 2020 2020 Outpatient AMBREEN_FAR [facility]OP [facility] 109 879- [place] 04:43:00 04:43:00 HANA 13648 [facility] 2020 2020 Long [facility] [place] - [id number] M atagor 00:00:00 00:00:00 Karen Day da EMPLOYEE RELATIONS ASSISTANT: 25353 Scientologist Epi scop [place] 59 [facility] [place] Program [address] , Ph. 2020-05-24 2020-05-24 Outpatient AMBREEN_FAR [facility]OP [facility] 109 [place] 02:37:00 02:37:00 HANA 46626 [facility] 2020-05-24 2020-05-24 Outpatient AMBREEN_FAR [facility] 109 [place] 02:37:00 02:37:00 HANA 22883 [facility] 2020-05-24 2020-05-24 Long [facility] [place] - [id number] M atagor 00:00:00 00:00:00 Karen Day da EMPLOYEE RELATIONS ASSISTANT: 70724 Scientologist Epi scop [place] 59 [facility] [place] Program [address] , Ph. 2020-05-21 2020-05-21 Outpatient AMBREEN_FAR [facility]OP [facility] 109 87 [place] 02:03:00 02:03:00 HANA 56521 [facility] 2020-05-04 2020-05-04 Outpatient AMBREEN_FAR MEHOP [facility] 109 879 [place] 12:25:00 12:25:00 HANA 05549 [facility] 2020-05-04 2020-05-04 Outpatient AMBREEN_FAR [facility]OP [facility] 109 [place] 12:25:00 12:25:00 HANBrenna 73436 [facility] 2020-05-04 2020-05-04 Stefan Mayers [facility] [place] - [id number] [place] 00:00:00 00:00:00 MD Robert: Karen cat 44857 Scientologist Episc op 59 [facility] - [facility] [address] [place] Program [address] , Ph. 2020-04-19 2020-04-19 Outpatient AMBREEN_FAR [facility] 109 87 [place] 02:35:00 02:35:00 KYLE 55765 [facility] 2020-04-04 2020-04-04 Emergency [facility] 1.2.764.113 [id number] 16:55:00 18:45:00 Petra Reed 350.1.13.10 [place] 4.2.7.2.686 [place] [id number] 084 2020-04-04 2020-04-04 Emergency [facility] 1.2.360.703 [id number] Univers 16:55:00 18:45:00 Petra Reed 350.1.13.[address] [facility] 4.2.7.2.686 [facility] [place] [phone] [facility] 084 Branch 2020-04-02 2020-04-02 OG Edwards 1.2.840.114 [id number] Univers 00:00:00 00:00:00 (Out) Julieth ELY 350.1.13.10 y [facility] 4.2.7.2.686 Cory as [id number] [facility] 019 Branch 2020-04-02 2020-04-02 OG Edwards 1.2.840.114 [id number] 00:00:00 00:00:00 (Out) Julieth ELY 350.1.13.10 [facility] 4.2.7.2.686 [id number] 019 2020-03-31 2020-04-01 Emergency Rodrigo [facility] 1.2.840.114 [id number] Univers 23:53:00 05:34:00 [place] Reed 350.1.13.10 i ty of [place] 4.2.7.2.686 [facility] [id number] [facility] 084 Branch 2020-03-31 2020-04-01 Emergency Rodrigo Brewster [facility] 1.2.840.114 [id number] 23:53:00 05:34:00 [place] 350.1.13.10 [place] 4.2.7.2.686 [place] [id number] 084 2020-03-14 2020-03-14 Outpatient AMBREEN_FAR ME[facility] [phone] [place] 01:03:00 01:03:00 KYLE 29309 [facility] 2020-03-08 2020-03-08 Outpatient AMBREEN_FAR [facility]OP [facility] 109 879 [place] 10:25:00 10:25:00 KYLE 71724 [facility] 2020-03-07 2020-03-07 Outpatient AMBREEN_FAR [facility] 109 879 [place] 05:07:00 05:07:00 KYLE 26761 [facility] 2020-03-07 2020-03-07 Long [place] - [id number] M at[place]or 00:00:00 00:00:00 Karen Day da EMPLOYEE RELATIONS ASSISTANT: 83226 Scientologist Epi scop [place] 59 [facility] [address] , Ph. 2020-02-29 2020-02-29 Outpatient AMBREEN_FAR [facility] 109 879- [place] 05:13:00 05:13:00 KYLE 90954 [facility] 2020-02-29 2020-02-29 Long [place] - [id number] M atagor 00:00:00 00:00:00 Karen Day da EMPLOYEE RELATIONS ASSISTANT: 17001 Scientologist Epi scop [place] 59 [facility] [address], [facility] [place] Program [address] , Ph. 2020-02-22 2020-02-22 Outpatient AMBREEN_SHAMA [facility] 109 879 [place] 04:29:00 04:29:00 HANA 86167 [facility] 2020-02-22 2020-02-22 Long [place] [place] - [id number] [place] 00:00:00 00:00:00 Karen Day da EMPLOYEE RELATIONS ASSISTANT: 78059 Scientologist Epi scop [place] 59 [facility] [address], [facility] [place] Program [address] , Ph. 2020-02-09 2020-02-09 Outpatient AMBREEN_[facility] 109 879 [place] 02:35:00 02:35:00 HANA 17174 [facility] 2020-02-08 2020-02-08 Outpatient AMBREEN_[facility] 109 879 [place] 05:05:00 05:05:00 HANA 13599 [facility] 2020-02-08 2020-02-08 Long [place] [place] - [id number] [place]or 00:00:00 00:00:00 Karen Day da EMPLOYEE RELATIONS ASSISTANT: 57436 Scientologist Epi scop [place] 59 [facility] [address], [facility] [place] Program [address] , Ph. 2020-02-05 2020-02-05 [facility] 1.2.840.114 [id number] Univers 00:00:00 00:00:00 Amyn Health 350.1.13.10 it y of [place] 4.2.7.2.686 Cory as [place] [id number] [place] [address] Branch Office Building 2020-02-05 2020-02-05 [facility]ill [facility] 1.2.840.114 [id number] 00:00:00 00:00:00 Amyn Health 350.1.13.10 [place] 4.2.7.2.686 [place] [id number] Medical [facility] Office Building 2020-02-01 2020-02-01 Outpatient AMBREEN_FAR [facility] [phone] [place] 05:01:00 05:01:00 HANA 77558 [facility] 2020-02-01 2020-02-01 Ely Mayers [facility] [place] - [id number] M atagor 00:00:00 00:00:00 JEFE Pacheco: Karen cat 47064 Scientologist Episc op 59 [facility]OP - [facility] [address], [place] Program [address] , Ph. 2020-01-31 2020-01-31 Refill Victoria, [facility] 1.2.840.114 [id number] Univers 00:00:00 00:00:00 Amyn Health 350.1.13.10 it y of [place] 4.2.7.2.686 Cory as [place] [id number] [place] [address] Branch Office Building 2020-01-31 2020-01-31 Refill Victoria, [facility] 1.2.840.114 [id number] 00:00:00 00:00:00 Amyn Health 350.1.13.10 [place] 4.2.7.2.686 [place] [id number] [place] [address] Office Building 2020-01-20 2020-01-20 Outpatient AMBREEN_[facility] 109 879 [place] 02:18:00 02:18:00 KYLE 97504 [facility] 2020-01-19 2020-01-19 Refill Victoria, [facility] 1.2.840.114 [id number] Univers 00:00:00 00:00:00 Amyn Health 350.1.13.10 it y of [place] 4.2.7.2.686 Cory as [place] [phone] [place] [address] Branch Office Building 2020-01-19 2020-01-19 Refill Victoria, [facility] 1.2.840.114 [id number] 00:00:00 00:00:00 Amyn Health 350.1.13.10 [place] 4.2.7.2.686 [place] [id number] Medical [facility] Office Building 2020-01-16 2020-01-16 Cecilia Hein [facility] 1.2.840.114 [id number] Univers 00:00:00 00:00:00 Management M Health 350.1.13.10 ity of [place].2.686 [place] [id number] [place] [address] Branch Office Building 2020-01-16 2020-01-16 Cecilia Hein [facility] 1.2.840.114 [id number] 00:00:00 00:00:00 Management M Health 350.1.13.10 [place] 4.2.7.2.686 [place] [id number] Medical [facility] Office Building 2020-01-13 2020-01-13 Cecilia Hein [facility] 1.2.840.114 [id number] Univers 00:00:00 00:00:00 Management M Health 350.1.13.10 ity of [place]2.7.2.686 [place] [id number] [place] [address] Branch Office Building 2020-01-13 2020-01-13 Cecilia Hein [facility] 1.2.840.114 [id number] 00:00:00 00:00:00 Management M Health 350.1.13.10 [place] 4.2.7.2.686 [place] [id number] [place] [address] Office Building 2020-01-11 2020-01-11 Outpatient AMBREEN_[facility] [phone] [place] 03:04:00 03:04:00 KYLE 27519 da Episcop [facility] Outre h Program 2020-01-11 2020-01-11 [facility] [place] - [id number] M at[place]or 00:00:00 00:00:00 Karen Day EMPLOYEE RELATIONS ASSISTANT: 49042 Scientologist Epi scop [place] 59 [facility] Health [address], [facility] [place] Program [address] , Ph. 2020-01-10 2020-01-10 Juan Plasenciawarupert ALLUIS ANGEL 1.2.840.114 [id number] 00:00:00 00:00:00 Management [facility] Health 350.1.13.10 [place] 4.2.7.2.686 [place] [id number] [place] [address] Office Building 2020-01-10 2020-01-10 Juan [facility] 1.2.840.114 [id number] Univers 00:00:00 00:00:00 Management [facility] Health 350.1.13.10 ity of [place] 4.2.7.2.686 Cory as [place] [phone] [address] Office Building 2020-01-04 2020-01-04 Outpatient AMBREEN_FAR [facility] 109 879- [place] 05:02:00 05:02:00 KYLE 57564 [facility] 2020-01-04 2020-01-04 Ely Mayers [facility] [place] - [id number] [place]agor 00:00:00 00:00:00 JEFE Pacheco: Karen de leon a [address] [place] Scientologist Episc op 59 [facility] [address], [facility] [place] Program [address] , Ph. 2019-12-29 2019-12-29 True [facility] 12.840.114 [id number] Univers 00:00:00 00:00:00 [facility] 350.1.13.10 it y of [place] 4.2.7.2.686 Cory as [place] [phone] [address] Office Building 2019-12-28 2019-12-28 Outpatient AMBREEN_[facility] 109 879- [place] 04:59:00 04:59:00 HANA 43088 [facility] 2019-12-28 2019-12-28 Long [facility] [place] - [id number] M atagor 00:00:00 00:00:00 Karen Day LPC: 39658 Scientologist Epi scop [place] 59 [facility] [address], [facility] [place] Program [address] , Ph. 2019-12-27 2019-12-27 True Kessler [facility] 1.2.840.114 [id number] 00:00:00 00:00:00 Amyn SPECIALTY 350.1.13.10 ity [facility] 4.2.7.2.686 Cory as COLONY [phone] [place] [address] Branch 2019-12-23 2019-12-23 Outpatient AMBREEN_FAR MEHOP [facility] 109 879- [place] 05:19:00 05:19:00 HANA 25218 [facility] 2019-12-23 2019-12-23 [facility] [place] - [id number] [place] 00:00:00 00:00:00 MD Robert: [place] [address] [place] Scientologist Episc op 59 [facility] [address], [facility] [place] Program [address] , Ph. 2019-12-21 2019-12-21 Outpatient AMBREEN_FAR [facility] 109 879 [place] 02:10:00 02:10:00 HANA 45176 [facility] 2019-12-21 2019-12-21 Long NMHERMELINDA [place] - [id number] M atagor 00:00:00 00:00:00 Karen Day EMPLOYEE RELATIONS ASSISTANT: 18374 Scientologist Epi scop [place] 59 [facility] [address], [facility] [place] Program [address] , Ph. 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 2019-11-30 2019-11-30 Outpatient AMBREEN_FAR [facility]OP [facility] 109 879- [place] 05:22:00 05:22:00 HANA 83981 [facility] 2019-11-30 2019-11-30 Ely Mayers [facility] [place] - [id number] atagor 00:00:00 00:00:00 JEFE Pacheco: Karen cat 23001 [place] Scientologist Episc op 59 [facility] A, [facility] [place] Program [address] , Ph. 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 2019-10-24 2019-10-24 Outpatient AMBREEN_FAR MEHOP [facility] 109 87 [place] 01:15:00 01:15:00 HANA 96132 da [facility] Program 2019-10-20 2019-10-20 Outpatient AMBREEN_FAR MEHOP [facility] 109 879 [place] 03:07:00 03:07:00 HANA 94182 [facility] Program 2019-09-22 2019-09-22 Refill Victoria [facility] 1.2.840.114 [id number] Univers 00:00:00 00:00:00 Amyn SPECIALTY 350.1.13.10 ity of [facility] 4.2.7.2.686 Cory as COLONY [id number] [facility] [address] 2019-08-18 2019-08-18 Emergency [facility] 1.2.374.464 [id number] Univers 03:26:36 04:39:00 Kayode Buckley 350.1.13.10 i ty of [place] 4.2.7.2.686 [place] [facility] [id number] [facility] [address] 2019-08-18 2019-08-18 Emergency X [facility] ERT [id number] Univers 03:26:36 04:39:00 KAYODE ity [facility] 2019-08-18 2019-08-18 Orders Doctor FOLEY 1.2.840.114 [id number] Univers 00:00:00 00:00:00 Only Unassigned, SOLIS 350.1.13.10 ity of [place] [facility] 4.2.7.2.686 Cory as [id number] [address] 2019-08-13 2019-08-13 Refill [facility] 1.2.840.114 [id number] Univers 00:00:00 00:00:00 Amyn SPECIALTY 350.1.13.10 ity of [facility] 4.2.7.2.686 Cory as COLONY [id number] [address] 2019-07-25 2019-07-25 [facility]ill [facility] 1.2.840.114 [id number] Univers 00:00:00 00:00:00 Amyn SPECIALTY 350.1.13.10 ity of [facility] 4.2.7.2.686 Cory as [place] [id number] [address] 2019-06-29 2019-06-29 Refkvng [facility] 1.2.840.114 [id number] Univers 00:00:00 00:00:00 Amyn SPECIALTY 350.1.13.10 ity of [facility] 4.2.7.2.686 Ocry as [place] [id number] [address] 2019-05-29 2019-05-29 [facility] 1.2.840.114 [id number] Univers 00:00:00 00:00:00 Amyn SPECIALTY 350.1.13.10 ity of [facility] 4.2.7.2.686 Cory as [place] [id number] [address] 2018-10-26 2018-10-26 [facility]en [facility] 1.2.840.114 [id number] Univers 00:00:00 00:00:00 Amyn SPECIALTY 350.1.13.10 ity of [facility] 4.2.7.2.686 Cory as [place] [id number] [address] Results Test Description Test Time Test Comments Results Result Comments Source Acute hepatitis 1999 panel - Serum 2020-09-13 00:00:00 Test Item Value Reference Range Interpretation Comme nts Hepatitis A virus IgM Ab [Presence] in Serum or Plasma non-r eactive non-reactive by Immunoassay (test code = 45471-9) Hepatitis B virus surface Ag [Presence] in Serum or non-reactive no n-reactive Plasma by Immunoassay (test code = 5196-1) Hepatitis B virus core IgM Ab [Presence] in Serum or non-reactive n on-reactive Plasma by Immunoassay (test code = 35762-8) Hepatitis C virus Ab [Presence] in Serum or Plasma by non-reacti ve non-reactive Immunoassay (test code = 09233-2) Hepatitis C virus Ab Signal/Cutoff in Serum or Plasma 0.02 <1.00 by Immunoassay (test code = 33978-2) [facility]+HIV1 p24 Ag [Presence] in Serum or Plasma by [id number] 00:00:00 Test Item Value Reference Range Interpretation Comments HIV 1+2 Ab+HIV1 p24 Ag non-reactive non-reactive [Presence] in Serum or Plasma by Immunoassay (test code = 79103-6) [facility] 1999 panel - Serum or [id number] 00:00:00 Test Item Value Reference Range Interpretation Comments Glucose [Mass/volume] 90 mg/dL 65-99 in Serum or Plasma (test code = 2345-7) Urea nitrogen 12 mg/dL 7-25 [Mass/volume] in Serum or Plasma (test code = 3094-0) Creatinine 0.69 mg/dL 0.50-1.10 [Mass/volume] in Serum or Plasma (test code = 2160-0) Glomerular filtration 123 See_Comment [Auto mated rate/1.73 sq mL/min/1.73m2 message] The M.predicted among [facility] non-blacks [Volume generated this Rate/Area] in Serum, result Plasma or Blood by transmitt ed Creatinine-based reference r oliva: formula (CKD-EPI) > or = 60. The (test code = 41153-4) refere nce range was not used to interpret this result as normal/abnormal . Glomerular filtration 142 See_Comment [Auto mated rate/1.73 sq mL/min/1.73m2 message] The M.predicted among [facility] blacks [Volume generated thi s Rate/Area] in Serum, result Plasma or Blood by transmitt ed Creatinine-based reference r oliva: formula (CKD-EPI) > or = 60. The (test code = 18200-5) refere nce range was not used to [...] in Serum or Plasma (test code = 11912-0) Protein [Mass/volume] 7.0 g/dL 6.1-8.1 in Serum or Plasma (test code = 2885-2) Albumin [Mass/volume] 4.4 g/dL 3.6-5.1 in Serum or Plasma (test code = 1751-7) Globulin [Mass/volume] 2.6 g/dL (calc) 1.9-3.7 in Serum by calculation (test code = 11427-2) Albumin/Globulin [Mass 1.7 (calc) 1.0-2.5 Ratio] in [...] Serum or Plasma (test code = 1742-6) [facility] Outreach [facility] W Auto Differential panel - Blood 2020-09-13 [...] = 776-5) Neutrophils [#/volume] in 2473 cells/uL 3801-3199 Blood by Automated count (test code = [...] by Automated count (test code = 706-2) [facility] Hospital[facility]yrotropin [Units/volume] in Serum or Plasma by Detection limit <= 0.005 mIU/[id number] 00:00:00 Test Item Value Reference Range Interpretation Comments Thyrotropin [Units/volume] in 2.74 mIU/L Serum or Plasma (test code = 3016-3) [facility] [id number] 00:00:00 Test Item Value Reference Range Interpretation Comments Chlamydia trachomatis rRNA not detected not detected [Presence] in Unspecified specimen by ANSLEY with probe detection (test code = 94502-1) Neisseria gonorrhoeae rRNA not detected not detected [Presence] in Unspecified specimen by ANSLEY with probe detection (test code = 72066-4) comment (test code = comment) [id number]00 Test Item Value Reference Range Interpretation Comments Choriogonadotropin.beta subunit negative negative ( test) [Presence] in Urine (test code = 2112-1) [facility] in Serum by RPR 2020-09-13 00:00:00 Test Item Value Reference Range Interpretation Comments Reagin Ab [Presence] in Serum by non-reactive non-reactive RPR (test code = 50497-5) [facility] 2020-04-01 08:59:58Impression: No [...] versus viral respiratory illness. RL: 460 AFC: [id number] Ordering physician: Rodrigo BREWSTER Indication: Chest pain, short of breath, elevated d-dimer Comparison: None Technique: CTA of the chest was performed following the administration ofintravenous contrast material. Three-dimensional reformats were gener atedfollowing completion of the exam. CT scan was performed according to ALARA(as low as reasonably achievable) policy. Findings: The visualized thyroid gland is within normal limits. The patientis status post median sternotomy. There is a [...] elevated d-dimerComparison: NoneTechnique: CTA of the chest wasperformed following the administration ofintravenous contrast material. Three-dimensional reformats were generatedfollowing completion of the exam. CT scan was performed according to ALARA(as low as reasonably achievable) policy.Findings: The visualized thyroid gland is within normal limits. The patientis status post median sternotomy. There is a [...] in the upper abdomen. There is splenomegaly,incompletely visualized.No acute pulmonary process is identified. Bonewindows through the chest demonstrate no osseous destructive lesion. 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 The pulmonary arteries appear to be supplied by the SVC. No fillingdefect is appreciated in the lower lobe pulmonary arteries; evaluation ofthe upper lobe pulmonary arteries is limited by study timing. Correlationwith patient history is recommended; the patient is status post remotemedian sternotomy.Mild diffuse groundglass attenuation in the lungs bilaterally, suggestiveof mild pulmonary edema versus viral respiratory illness.RL: [id number] signed by Belkis Perry MD, PhD at 04/01/2020 2:[address] [facility] 07:22:00 Test Item Value Reference Interpretation Comments Range D-DIMER (test code = See_Comment H [Autom ated [id number]) message] The system which generated this result [...] diagnosis. Lab Interpretation Abnormal (test code = 39527-2) [facility] 07:13[facility]00 Test Item Value Reference Range Interpretation Comments TROPONIN I (test <0.012 See_Comment [Automated code = 5418999338) message] The system which generated this result [...] ? Lab Interpretation Normal (test code = 85525-3) [facility]ID [facility])2020-04-01 07:12:00 Test Item Value Reference Range Interpretation Comments SARS-CoV-2 Rapid ID NOW Not Detected Not Detected (test code = 13583-4) SUSANNA (test code = SUSANNA) ID NOW COVID-19 Assay is an isothermal nucleic acid amplification test intended for the qualitative detection of nucleic acid from SARS-CoV-2 viral RNA in nasopharyngeal (STEEL MELTER) specimens. It is used under Emergency Use [...] indicated. Lab Interpretation Normal (test code = 66651-1) [facility]. METABOLIC PANEL (22013)2020-04-01 07:01:00 Test Item Value Reference Range Interpretation Comments NA (test code = 137 mmol/L 135-145 4273179003) K (test code = 3.9 mmol/L 3.5-5 9242714907) CL (test code = 106 mmol/L 98-108 9777214655) CO2 TOTAL (test code = 22 mmol/L 23-31 L 0393197859) AGAP (test code = 2-16 5721990239) BUN (test code = 10 mg/dL 7-23 5245372576) GLUCOSE (test code = 116 mg/dL 70-110 H 9211151969) CREATININE (test code = 0.59 mg/dL 0.5-1.04 0267680174) TOTAL BILI (test code = 0.7 mg/dL 0.1-1.0 7788237284) CALCIUM (test code = 9.1 mg/dL 8.6-10.6 2132114252) T PROTEIN (test code = 7.2 g/dL 6.3-8.2 8874922145) ALBUMIN (test code = 4.1 g/dL 3.5-5 7815559428) ALK PHOS (test code = 106 U/L 34-122 6524875774) ALTv (test code = 15 U/L 5-35 1742-6) AST(SGOT) (test code = 22 U/L 13-40 3687662279) eGFR Calculation mL/min/1.73m2 (Non-) (test code = 7250630934) eGFR Calculation mL/min/1.73m2 () (test code = 0024870796) SUSANNA (test code = SUSANNA) Association of [...] tests). Lab Interpretation Abnormal (test code = 57867-4) [facility] GpirleVFGKEEAKOD7116-30-02 07:00:00 Test Item Value Reference Range Interpretation Comments APPEARANCE (test code = Hazy Clear A 7606596786) COLOR (test code = Yellow Yellow 4011281300) PH (test code = 4.8-8.0 5007421307) SP GRAVITY (test code = 1.003-1.030 2484969631) GLU U QUAL (test code = Normal Normal 5259703682) BLOOD (test code = 3+ Negative A 3225962330) KETONES (test code = Negative Negative 7939235599) PROTEIN (test code = Negative Negative 2887-8) UROBILIN (test code = Normal Normal 8152164365) BILIRUBIN (test code = Negative Negative 4653887063) NITRITE (test code = Negative Negative 9019831857) LEUK YVAN (test code = Negative Negative 9381547747) RBC/HPF (test code = See_Comment H [Autom ated message] 9572543950) The system [employer] generated this result transmitted ref erence range: 0 - 3 HP F. The reference range was not used to int erpret this result as normal/abnormal . WBC/HPF (test code = See_Comment [Autom ated message] 5589703857) The system [employer] generated this result transmitted ref erence range: 0 - 5 HP F. The reference range was not used to int erpret this result as normal/abnormal . BACTERIA (test code = Few Negative A 5880346436) SQ EPITH (test code = HPF 8527651771) Lab Interpretation (test Abnormal code = 86533-8) [facility] WITH [id number] 06:49:00 Test Item Value Reference Range Interpretation Comments WBC (test code = See_Comment L [Automated 6190-2) message] The sy stem which generated this result transmitted reference range : 4.30 - 11.10 10*3/?L. The reference range was not used to interpret this result as normal/abnormal . RBC (test code = See_Comment L [Automated 109-8) message] The sy stem which generated this [...] RDW-SD (test code = 41.0 fL 39-49.9 45508-6) RDW-CV (test code = 12.6 % 12-15.5 788-0) PLT (test code = See_Comment L [Automated 777-3) message] The sy stem which generated this result transmitted reference range : 166 - 358 10*3/ ?L. The reference r oliva was not used to interpret this result as normal/abnormal . MPV (test code = 11.9 fL 9.5-12.9 44976-2) NRBC/100 WBC (test See_Comment [Automat ed code = 5919348144) message] The system which generated this result transmitted reference range : 0.0 - 10.0 /100 WBCs. The refer ence range was not u sed to interpret th is result as normal/abnormal . NRBC x10^3 (test code <0.01 See_Comment [Auto mated = 4237268882) message] The s ystem which generated this result transmitted reference range : 10*3/?L. The reference range was not used to interpret this result as normal/abnormal . GRAN MAT (NEUT) % 75.2 % (test code = 770-8) IMM GRAN % (test code 0.20 % = 1268416173) LYMPH % (test code = 13.3 % 736-9) MONO % (test code = 9.1 % 5905-5) EOS % (test code = 2.0 % 713-8) BASO % (test code = 0.2 % 706-2) GRAN MAT x10^3(ANC) 3.04 10*3/uL 1.88-7.09 (test code = 6048132734) IMM GRAN x10^3 (test <0.03 0-0.06 code = 8127254064) LYMPH x10^3 (test code 0.54 10*3/uL 1.32-3.29 L = 731-0) MONO x10^3 (test code 0.37 10*3/uL 0.33-0.92 = 742-7) EOS x10^3 (test code = 0.08 10*3/uL 0.03-0.39 711-2) BASO x10^3 (test code <0.03 0.01-0.07 = 704-7) Lab Interpretation Abnormal (test code = 57969-7) [facility]PO[facility] [id number] 06:45:00 Test Item Value Reference Range Interpretation Comments POCT PREG (test code = 1605) negative On board controls acceptable with positive C Line (test code = 3574) POCT PREG LOT # (test code = 3575) [id number] POCT PREG TEST DATE (test 10-30-2021 code = 3576) Lab Interpretation (test code = Normal 07058-9) [facility] HospitalLamdic Acid Whole [id number] 06:35:00 Test Item Value Reference Range Interpretation Comments LACTIC ACID (test code = 1.27 mmol/L 0.5-2.2 4223677711) Lab Interpretation (test code = Normal 65385-6) [facility] HospitalUrinalysis complete W Reflex Culture panel - [id number] 00:00:00 Test Item Value Reference Range Interpretation [...] (test code = 5-10 0-10 epithelial cells) [facility] ProgramLipid [facility] panel [...] = 1.61 ratio <3.22 risk ratio LDL/HDL) [facility] - Blood [...] code = 156 K/uL 130-400 platelet count) [facility] HospitalComprehensive metabolic 2000 panel - Serum or [id number] 00:00:00 Test Item Value Reference Range Interpretation [...] (test code = ALT) 26 U/L 5-40 [facility] HospitalThyrotropin [Units/volume] in Serum or [id number] 00:00:00 Test Item Value Reference Range Interpretation Comments TSH, third generation (test code 1.810 uIU/mL 0.400-4.100 = TSH, third generation) [facility] HospitalReagin Ab [Presence] in Serum by RPR 2019-12-01 00:00:00 Test Item Value Reference Range Interpretation Comments RPR result (test code = RPR non-reactive non-reactive result) RPR titer (test code = RPR not indic. not indic. titer) [facility] HospitalPT and aPTT panel - Platelet poor plasma by Coagulation [id number] 00:00:00 Test Item Value Reference Range Interpretation Comments prothrombin time (PT) (test code 13.9 seconds 12.5-14.7 = prothrombin time (PT)) INR (test code = INR) 1.0 see below PTT (test code = PTT) 30.1 seconds 25.2-40.0 [facility]HIV 1+2 Ab [Presence] in Serum or Plasma by Ztkcbxhpwug7871-09-06 00:00:00 Test Item Value Reference Range Interpretation Comments HIV 1/2 4TH gen, rflx conf (test non-reactive non-reactive code = HIV 1/2 4TH gen, rflx conf) [facility] HospitalAc[facility] hepatitis 2000 panel - Serum 2019-12-01 [...] (note) (test code = interpretation hepatitis C:) [facility] HospitalChlamydia trachomatis+Neisseria gonorrhoeae DNA [Presence] in Urine by ANSLEY with probe [id number] 00:00:00 Test Item Value Reference Range Interpretation Comments gonorrhea, tma (test code = negative negative gonorrhea, tma) chlamydia, tma (test code = negative negative chlamydia, tma) [facility] HospitalUrinalysis [facility] W Reflex Culture panel - [id number] 00:00:00 Test Item Value Reference Range Interpretation [...] (test code = 5-10 0-10 epithelial cells) [facility] HospitalLipid 1996 panel - Serum or Plasma [...] = 1.61 ratio <3.22 risk ratio LDL/HDL) [facility] HospitalCBC W Auto Differential panel - Blood [...] code = 156 K/uL 130-400 platelet count) [facility] HospitalComprehensive metabolic 2000 panel - Serum or [id number] 00:00:00 Test Item Value Reference Range Interpretation [...] (test code = ALT) 26 U/L 5-40 [facility] ProgramThyrotropin [Units/volume] in Serum or [id number] 00:00:00 Test Item Value Reference Range Interpretation Comments TSH, third generation (test code 1.810 uIU/mL 0.400-4.100 = TSH, third generation) [facility] ProgramReagin Ab [Presence] in Serum by RPR 2019-12-01 00:00:00 Test Item Value Reference Range Interpretation Comments RPR result (test code = RPR non-reactive non-reactive result) RPR titer (test code = RPR not indic. not indic. titer) [facility] HospitalPT and aPTT panel - Platelet poor plasma by Coagulation [id number] 00:00:00 Test Item Value Reference Range Interpretation Comments prothrombin time (PT) (test code 13.9 seconds 12.5-14.7 = prothrombin time (PT)) INR (test code = INR) 1.0 see below PTT (test code = PTT) 30.1 seconds 25.2-40.0 [facility] HospitalHIV 1+2 Ab [Presence] in Serum or Plasma by [id number] 00:00:00 Test Item Value Reference Range Interpretation Comments HIV 1/2 4TH gen, rflx conf (test non-reactive non-reactive code = HIV 1/2 4TH gen, rflx conf) [facility] HospitalAc[facility] 2000 panel - Serum 2019-12-01 [...] (note) (test code = interpretation hepatitis C:) [facility] HospitalChlamydia trachomatis+Neisseria gonorrhoeae DNA [Presence] in Urine by ANSLEY with probe [id number] 00:00:00 Test Item Value Reference Range Interpretation Comments gonorrhea, tma (test code = negative negative gonorrhea, tma) chlamydia, tma (test code = negative negative chlamydia, tma) [facility] HospitalUrinalysis complete W Reflex Culture panel - [id number] 00:00:00 Test Item Value Reference Range Interpretation [...] (test code = 5-10 0-10 epithelial cells) [facility] HospitalLipid 1996 panel - Serum or Plasma [...] = 1.61 ratio <3.22 risk ratio LDL/HDL) [facility] HospitalCB W Auto Differential panel - Blood 2019-12-01 [...] code = 156 K/uL 130-400 platelet count) [facility] HospitalComprehensive metabolic 2000 panel - Serum or [id number] 00:00:00 Test Item Value Reference Range Interpretation [...] (test code = ALT) 26 U/L 5-40 [facility] HospitalThyrotropin [Units/volume] in Serum or [id number] 00:00:00 Test Item Value Reference Range Interpretation Comments TSH, third generation (test code 1.810 uIU/mL 0.400-4.100 = TSH, third generation) [facility] HospitalReagin Ab [Presence] in Serum by RPR 2019-12-01 00:00:00 Test Item Value Reference Range Interpretation Comments RPR result (test code = RPR non-reactive non-reactive result) RPR titer (test code = RPR not indic. not indic. titer) [facility] HospitalPT and aPTT panel - Platelet poor plasma by Coagulation [id number] 00:00:00 Test Item Value Reference Range Interpretation Comments prothrombin time (PT) (test code 13.9 seconds 12.5-14.7 = prothrombin time (PT)) INR (test code = INR) 1.0 see below PTT (test code = PTT) 30.1 seconds 25.2-40.0 [facility] HospitalHIV 1+2 Ab [Presence] in Serum or Plasma by [id number] 00:00:00 Test Item Value Reference Range Interpretation Comments HIV 1/2 4TH gen, rflx conf (test non-reactive non-reactive code = HIV 1/2 4TH gen, rflx conf) [facility] HospitalAc[facility] 2000 panel - Serum 2019-12-01 [...] (note) (test code = interpretation hepatitis C:) [facility] HospitalChlamydia trachomatis+Neisseria gonorrhoeae DNA [Presence] in Urine by ANSLEY with probe [id number] 00:00:00 Test Item Value Reference Range Interpretation Comments gonorrhea, tma (test code = negative negative gonorrhea, tma) chlamydia, tma (test code = negative negative chlamydia, tma) [facility] HospitalUrinalysis complete W Reflex Culture panel - [id number] 00:00:00 Test Item Value Reference Range Interpretation [...] (test code = 5-10 0-10 epithelial cells) [facility] HospitalLipid 1996 panel - Serum or Plasma [...] = 1.61 ratio <3.22 risk ratio LDL/HDL) [facility] HospitalCB W Auto Differential panel - Blood 2019-12-01 [...] code = 156 K/uL 130-400 platelet count) [facility] HospitalComprehensive metabolic 2000 panel - Serum or [id number] 00:00:00 Test Item Value Reference Range Interpretation [...] (test code = ALT) 26 U/L 5-40 [facility] HospitalThyrotropin [Units/volume] in Serum or [id number] 00:00:00 Test Item Value Reference Range Interpretation Comments TSH, third generation (test code 1.810 uIU/mL 0.400-4.100 = TSH, third generation) [facility] HospitalReagin Ab [Presence] in Serum by RPR 2019-12-01 00:00:00 Test Item Value Reference Range Interpretation Comments RPR result (test code = RPR non-reactive non-reactive result) RPR titer (test code = RPR not indic. not indic. titer) [facility] HospitalPT and aPTT panel - Platelet poor plasma by Coagulation [id number] 00:00:00 Test Item Value Reference Range Interpretation Comments prothrombin time (PT) (test code 13.9 seconds 12.5-14.7 = prothrombin time (PT)) INR (test code = INR) 1.0 see below PTT (test code = PTT) 30.1 seconds 25.2-40.0 [facility] HospitalHIV 1+2 Ab [Presence] in Serum or Plasma by [id number] 00:00:00 Test Item Value Reference Range Interpretation Comments HIV 1/2 4TH gen, rflx conf (test non-reactive non-reactive code = HIV 1/2 4TH gen, rflx conf) [facility] HospitalAc[facility] 2000 panel - Serum 2019-12-01 [...] (note) (test code = interpretation hepatitis C:) [facility] HospitalChlamydia trachomatis+Neisseria gonorrhoeae DNA [Presence] in Urine by ANSLEY with probe [id number] 00:00:00 Test Item Value Reference Range Interpretation Comments gonorrhea, tma (test code = negative negative gonorrhea, tma) chlamydia, tma (test code = negative negative chlamydia, tma) [facility] HospitalUrinalysis complete W Reflex Culture panel - [id number] 00:00:00 Test Item Value Reference Range Interpretation [...] (test code = 5-10 0-10 epithelial cells) [facility] HospitalLipid 1995 panel - Serum or Plasma 2019-12-01 [...] = 1.61 ratio <3.22 risk ratio LDL/HDL) [facility] HospitalCBC W Auto Differential panel - Blood [...] code = 156 K/uL 130-400 platelet count) [facility] HospitalComprehensive metabolic 2000 panel - Serum or [id number] 00:00:00 Test Item Value Reference Range Interpretation [...] (test code = ALT) 26 U/L 5-40 [facility] HospitalThyrotropin [Units/volume] in Serum or [id number] 00:00:00 Test Item Value Reference Range Interpretation Comments TSH, third generation (test code 1.810 uIU/mL 0.400-4.100 = TSH, third generation) [facility] HospitalReagin Ab [Presence] in Serum by RPR 2019-12-01 00:00:00 Test Item Value Reference Range Interpretation Comments RPR result (test code = RPR non-reactive non-reactive result) RPR titer (test code = RPR not indic. not indic. titer) [facility] HospitalPT and aPTT panel - Platelet poor plasma by Coagulation [id number] 00:00:00 Test Item Value Reference Range Interpretation Comments prothrombin time (PT) (test code 13.9 seconds 12.5-14.7 = prothrombin time (PT)) INR (test code = INR) 1.0 see below PTT (test code = PTT) 30.1 seconds 25.2-40.0 [facility] HospitalHIV 1+2 Ab [Presence] in Serum or Plasma by [id number] 00:00:00 Test Item Value Reference Range Interpretation Comments HIV 1/2 4TH gen, rflx conf (test non-reactive non-reactive code = HIV 1/2 4TH gen, rflx conf) [facility] HospitalAc[facility] 2000 panel - Serum 2019-12-01 [...] (note) (test code = interpretation hepatitis C:) [facility] HospitalChlamydia trachomatis+Neisseria gonorrhoeae DNA [Presence] in Urine by ANSLEY with probe [id number] 00:00:00 Test Item Value Reference Range Interpretation Comments gonorrhea, tma (test code = negative negative gonorrhea, tma) chlamydia, tma (test code = negative negative chlamydia, tma) [facility] HospitalUrinalysis complete W Reflex Culture panel - [id number] 00:00:00 Test Item Value Reference Range Interpretation [...] tomated message] = urobilinogen) The system [facility] generated this result transmitted ref erence [...] (test 5-10 0-10 code = epithelial cells) [facility] HospitalLipid 1996 panel - Serum or Plasma [...] = 1.61 ratio <3.22 risk ratio LDL/HDL) [facility] HospitalCBC W Auto Differential panel - Blood [...] code = 156 K/uL 130-400 platelet count) [facility] HospitalComprehensive metabolic 2000 panel - Serum or [id number] 00:00:00 Test Item Value Reference Range Interpretation [...] (test code = 26 U/L 5-40 ALT) [facility] ProgramThyrotropin [Units/volume] in Serum or [id number] 00:00:00 Test Item Value Reference Range Interpretation Comments TSH, third generation (test code 1.810 uIU/mL 0.400-4.100 = TSH, third generation) [facility] ProgramReagin Ab [Presence] in Serum by RPR 2019-12-01 00:00:00 Test Item Value Reference Range Interpretation Comments RPR result (test code = RPR non-reactive non-reactive result) RPR titer (test code = RPR not indic. not indic. titer) [facility] HospitalPT and aPTT panel - Platelet poor plasma by Coagulation [id number] 00:00:00 Test Item Value Reference Range Interpretation Comments prothrombin time (PT) (test code 13.9 seconds 12.5-14.7 = prothrombin time (PT)) INR (test code = INR) 1.0 see below PTT (test code = PTT) 30.1 seconds 25.2-40.0 [facility]HIV 1+2 Ab [Presence] in Serum or Plasma by [id number] 00:00:00 Test Item Value Reference Range Interpretation Comments HIV 1/2 4TH gen, rflx conf (test non-reactive non-reactive code = HIV 1/2 4TH gen, rflx conf) [facility]Ac[facility] 2000 panel - Serum 2019-12-01 [...] (note) (test code = interpretation hepatitis C:) [facility] HospitalChlamydia trachomatis+Neisseria gonorrhoeae DNA [Presence] in Urine by NASLEY with probe [id number] 00:00:00 Test Item Value Reference Range Interpretation Comments gonorrhea, tma (test code = negative negative gonorrhea, tma) chlamydia, tma (test code = negative negative chlamydia, tma) [facility], [id number] 11:52:00 Test Item Value Reference Range Interpretation Comments HCG (test code = HCG) negative [facility], [id number] 11:52:00 Test Item Value Reference Range Interpretation Comments HCG (test code = HCG) negative [facility]ampregnancy [facility], [id number] 11:52:00 Test Item Value Reference Range Interpretation Comments HCG (test code = HCG) negative [facility] Programpregnancy test, [id number] 11:52:00 Test Item Value Reference Range Interpretation Comments HCG (test code = HCG) negative [facility] Programpregnancy test, [id number] 11:52:00 Test Item Value Reference Range Interpretation Comments HCG (test code = HCG) negative [facility] Programpregnancy test, [id number] 11:52:00 Test Item Value Reference Range Interpretation Comments HCG (test code = HCG) negative [facility] Programpregnancy test, [id number] 11:52:00 Test Item Value Reference Range Interpretation Comments HCG (test code = HCG) negative [facility] Program
[2022-03-08 02:11] LABS: Absolute Lymphocytes (CBC) 0.6 K/uL (0.7-4.9); Hematocrit 36.4 % (36.0-45.0); Lymphocytes % 17.4 % (15.3-44.8); MCV 83.1 fL (80-100); MPV 9.8 fL (7.6-11.3); RBC Red Blood Cell Count 4.38 M/uL (3.86-4.86)
[2022-03-08 02:13] LABS: Urine Blood 3+ (Negative); Urine Glucose Negative (Negative); Urine Protein 2+ (Negative); Urine Specific Gravity >=1.030 (1.005-1.030)
[2022-03-08 02:14] LABS: Urine Bacteria <20 /HPF (<20); Urine Mucus 2+ /HPF (None Seen); Urine RBC >50 /HPF (None Seen)
[2022-03-08 02:15] LABS: Protime INR 1.24
[2022-03-08 02:20] LABS: Potassium 3.4 mmol/L (3.5-5.1)
[2022-03-08 02:23] LABS: Urine Specific Gravity/Preg >1.030 (1.005-1.030)
--- NOTE | 2022-03-08 02:30 | EDPHYS ---
Physician Documentation [facility] Name: Taniya Hudson Age: 26 yrs Sex: Female : 1995 Arrival Date: 03/08/2022 Time: 01:21 Bed 14 Private MD: ED Physician Jenna Baldwin HPI: 03/08 01:35 This 26 yrs old Female presents to ER via Unassigned with complaints of Vaginal sd2 Bleeding, Pelvic Pain. 01:35 26-year-old female presents with chief complaint of menorrhagia. She reports that she sd2 is currently on her period at her normal time but has had heavier bleeding than normal for the past 3 days where she is having to change a pad or tampon every 1-2 hours. She reports this is heavier than what she has previously experienced with her periods. She denies any associated abdominal pain or cramping. She does report there is a chance of but that she does not believe this is present. She otherwise has no acute complaints at this time. Does not have an OBGYN currently. She is on daily ASA therapy due to her prior heart surgeries.. 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 - Social history:: Smoking status: unknown. ROS: 01:35 Constitutional: Negative for fever, chills, and weight loss, Eyes: Negative for injury, sd2 pain, redness, and discharge, Cardiovascular: Negative for chest pain, palpitations, and edema, Respiratory: Negative for shortness of breath, cough, wheezing. Abdomen/GI: Negative for abdominal pain, nausea, vomiting, diarrhea. : Negative for dysuria, urinary frequency, hesitancy, urgency and hematuria. Positive for vaginal bleeding. MS/Extremity: Negative for injury and deformity, Skin: Negative for injury, rash, and discoloration, Neuro: Negative for headache, numbness and tingling. Exam: 01:35 Constitutional: This is a well developed, well nourished patient who is awake, alert, sd2 and in no acute distress. Head/Face: Normocephalic, atraumatic. Eyes: EOMI, normal conjunctiva bilaterally Chest/axilla: Normal chest wall appearance and motion. Nontender with no deformity. Cardiovascular: Regular rate and rhythm with a normal S1 and S2. No gallops, murmurs, or rubs. 2+ distal pulses. Respiratory: Lungs have equal breath sounds bilaterally, clear to auscultation and percussion. No rales, rhonchi or wheezes noted. No increased work of breathing, no retractions or nasal flaring. Abdomen/GI: Soft, non-tender, with normal bowel sounds. No guarding or rebound. No evidence of tenderness throughout. Skin: Warm, dry with normal turgor. Normal color with no rashes, no lesions, and no evidence of cellulitis. MS/ Extremity: Pulses equal, no cyanosis. Neurovascular intact. Full, normal range of motion. Ambulatory without difficulty. Psych: Awake, alert, with orientation to person, place and time. Behavior, mood, and affect are within normal limits. Vital Signs: 01:36 BP 140 / 63; Pulse 98; Resp 16 S; Temp 98.8(O); Pulse Ox 96% on R/A; Weight 54.43 kg bb (R); Height 5 ft. 1 in. (154.94 cm) (R); Pain 0/10; 02:04 BP 126 / 65; Pulse 80; Resp 16; Pulse Ox 96% on R/A; Pain 0/10; pf1 02:29 BP 112 / 61; Pulse 73; Resp 18; Temp 98.3; Pulse Ox 96% on R/A; Pain 0/10; pf1 01:36 Body Mass Index 22.67 (54.43 kg, 154.94 cm) bb MDM: 01:26 Patient medically screened. sd2 01:35 Differential diagnosis: Menorrhagia, dysfunctional uterine bleeding, spontaneous sd2 , anemia among others. Data reviewed: vital signs, nurses notes. 02:28 Data reviewed: lab test result(s). Counseling: I had a detailed discussion with the sd2 patient and/or guardian regarding: the historical points, exam findings, and any diagnostic results supporting the discharge/admit diagnosis, lab results, the need for outpatient follow up, to return to the emergency department if symptoms worsen or persist or if there are any questions or concerns that arise at home. ED course: Labs reviewed. H\T\H normal. No signs of anemia. No abdominal pain or cramping to suggest a need for abdominal imaging at this time and test is negative. Advised follow up with OBGYN to establish care. Pt in agreement and is very well appearing with stable VS. Verbalizes understanding of discharge plan and strict return precautions. . 03/08 01:34 Order name: CBC with Diff; Complete Time: 02:24 sd2 03/08 01:34 Order name: BMP; Complete Time: 02:24 sd2 03/08 01:34 Order name: PT-INR; Complete Time: 02:24 sd2 03/08 01:34 Order name: Ptt, Activated; Complete Time: 02:24 sd2 03/08 01:34 Order name: Urine Microscopic Only; Complete Time: 02:24 sd2 03/08 02:13 Order name: Urine Dipstick-Ancillary; Complete Time: 02:24 EDMS 03/08 01:34 Order name: Urine Dipstick-Ancillary (obtain specimen); Complete Time: 02:25 sd2 03/08 01:34 Order name: Urine Test (obtain specimen); Complete Time: 02:25 sd2 03/08 02:18 Order name: Urine --Ancillary (enter results); Complete Time: 02:24 wm Administered Medications: No medications were administered Disposition Summary: 03/08/22 02:30 Discharge Ordered Location: Home sd2 Problem: new sd2 Symptoms: have improved sd2 Condition: Stable sd2 Diagnosis - Menorrhagia sd2 - Dysfunctional uterine bleeding sd2 Followup: sd2 - With: Tyler Richards MD - When: 2 - 3 days - Reason: Recheck today's complaints, Continuance of care Discharge Instructions: - Discharge Summary Sheet sd2 - Menorrhagia sd2 - Dysfunctional Uterine Bleeding sd2 Forms: - Medication Reconciliation Form sd2 - Thank You Letter sd2 - Antibiotic Education sd2 - Prescription Opioid Use sd2 Signatures: Dispatcher [employer] Viviana De Anda RN RN bb Nicolasa, Jenna, MD MD sd2
--- NOTE | 2022-03-08 02:30 | ER ---
Nurse's Notes [facility] Name: Taniya Hudson Age: 26 yrs Sex: Female : 1995 Arrival Date: 03/08/2022 Time: 01:21 Bed 14 Private MD: Diagnosis: Menorrhagia;Dysfunctional uterine bleeding Presentation: 03/08 01:36 Chief complaint: Patient states: she has been having heavier than usual period x 3 days bb she is going thru a pad and a tampon every one to two hours. Coronavirus screen: At this time, the client does not indicate any symptoms associated with coronavirus-19. Ebola Screen: No symptoms or risks identified at this time. Initial Sepsis Screen: Does the patient meet any 2 criteria? No. Patient's initial sepsis screen is negative. Does the patient have a suspected source of infection? No. Patient's initial sepsis screen is negative. Risk Assessment: Do you want to hurt yourself or someone else? Patient reports no desire to harm self or others. Onset of symptoms was March 05, 2022. 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 - Social history:: Smoking status: unknown. Screenin:02 [facility] ED Fall Risk Assessment (Adult) History of falling in the last 3 months, pf1 including since admission No falls in past 3 months (0 pts) Confusion or Disorientation No (0 pts) Intoxicated or Sedated No (0 pts) Impaired Gait No (0 pts) Mobility Assist Device Used No (0 pt) Altered Elimination No (0 pt) Score/Fall Risk Level 0 - 2 = Low Risk Oriented to surroundings, Maintained a safe environment, Educated pt \T\ family on fall prevention, incl call for assistance when getting out of bed, Assessed \T\ reinforced patient's understanding of fall precautions, Provided non-skid footwear, Hourly rounding (assess needs \T\ fall precautionary measures) done, Used ambulatory aids as needed (educated on \T\ assisted with), Used gait belt as appropriate. Abuse screen: Denies threats or abuse. Nutritional screening: No deficits noted. Tuberculosis screening: No symptoms or risk factors identified. Assessment: 01:30 General: Appears in no apparent distress. comfortable, well groomed, well developed, pf1 Behavior is calm, cooperative, appropriate for age, quiet. 01:30 Pain: Denies pain. Neuro: No deficits noted. Level of Consciousness is awake, alert, pf1 obeys commands, Oriented to person, place, time, situation. Cardiovascular: No deficits noted. Capillary refill < 3 seconds Patient's skin is warm and dry. Respiratory: No deficits noted. Reports Airway is patent Trachea midline Respiratory effort is even, unlabored, Respiratory pattern is regular, symmetrical. GI: No deficits noted. Abdomen is flat, non-distended, Bowel sounds present X 4 quads. : Reports vaginal bleeding that is bright red, with clots. EENT: No deficits noted. No signs and/or symptoms were reported regarding the EENT system. Derm: No deficits noted. No signs and/or symptoms reported regarding the dermatologic system. Musculoskeletal: Reports pain in left groin region,onset yesterday while at work. Patient denies any injury. Patient denies any pain at this time. 02:30 Reassessment: Patient appears in no apparent distress at this time. No changes from pf1 previously documented assessment. Patient is alert, oriented x 3, equal unlabored respirations, skin warm/dry/pink. Patient denies pain at this time. Vital Signs: 01:36 BP 140 / 63; Pulse 98; Resp 16 S; Temp 98.8(O); Pulse Ox 96% on R/A; Weight 54.43 kg bb (R); Height 5 ft. 1 in. (154.94 cm) (R); Pain 0/10; 02:04 BP 126 / 65; Pulse 80; Resp 16; Pulse Ox 96% on R/A; Pain 0/10; pf1 02:29 BP 112 / 61; Pulse 73; Resp 18; Temp 98.3; Pulse Ox 96% on R/A; Pain 0/10; pf1 01:36 Body Mass Index 22.67 (54.43 kg, 154.94 cm) ED Course: 01:21 Patient arrived in ED. [id number] 01:26 Jenna Baldwin MD is Attending Physician. sd2 01:37 Triage completed. bb 01:39 Ghada blount, RN is Primary Nurse. pf1 01:41 Arm band placed on Patient placed in an exam room, on a stretcher, on pulse oximetry. bb Family accompanied patient. 01:45 Placed in gown. Bed in low position. Call light in reach. pf1 01:50 No provider procedures requiring assistance completed. pf1 02:03 Inserted saline lock: 20 gauge in right antecubital area, using aseptic technique. pf1 Blood collected. 02:04 Ptt, Activated Sent. pf1 02:04 Urine Microscopic Only Sent. pf1 02:04 PT-INR Sent. pf1 02:04 BMP Sent. pf1 02:04 CBC with Diff Sent. pf1 02:29 Tyler Richards MD is Referral Physician. sd2 02:29 IV discontinued, intact, bleeding controlled, No redness/swelling at site. Pressure pf1 dressing applied. Administered Medications: No medications were administered Medication: 02:35 VIS not applicable for this client. pf1 Outcome: 02:30 Discharge ordered by . sd2 02:35 Discharged to home ambulatory, with family. pf1 02:35 Condition: stable 02:35 Discharge instructions given to patient, Instructed on discharge instructions, follow up and referral plans. Demonstrated understanding of instructions, follow-up care. 02:35 Patient left the ED. pf1 Signatures: Viviana Gray RN RN bb Shabana Wood [email or web address] Jenna Baldwin MD MD sd2 Ghada blount, RN RN pf1 Corrections: (The following items were deleted from the chart) 02:04 02:03 No provider procedures requiring assistance completed. pf1 pf1
[2022-03-08 03:16] VITALS: O2SAT 96
[2022-03-08 03:28] VITALS: BP 112/61; TEMP 98.3
== END 2022-03-08 02:35 | disposition home or self-care (01) ==
LOC: ER 01:15
DX: N93.8 Other specified abnormal uterine and vaginal bleeding (principal); N92.0 Excessive and frequent menstruation with regular cycle
CPT/HCPCS: 36415; 80048; 81003; 81015; 81025; 85025; 85610; 85730; 99283